=== PATIENT | female | born 1960 | race Caucasian/White ===

== ENCOUNTER → 2020-07-02 14:31 | Outpatient (BNVA) | payer OTHER, SELFPAY | PROVIDERS: PCP Internal Medicine; Visit Provider Internal Medicine Gastroenterology | DX: K21.9 Gastro-esophageal reflux disease without esophagitis (principal); K74.60 Unspecified cirrhosis of liver; K75.81 Nonalcoholic steatohepatitis (NASH); I85.00 Esophageal varices without bleeding; D50.9 Iron deficiency anemia, unspecified; K76.6 Portal hypertension; I85.10 Secondary esophageal varices without bleeding | CPT/HCPCS: 99213; Q3014 ==

== ENCOUNTER 2020-07-22 14:09 | Outpatient (REF) | payer OTHER, SELFPAY ==
[2020-07-22 16:44] LABS: Hematocrit 32.5 % (37-47); Hemoglobin 10.9 g/dl (12.0-16.0); Mean Corpuscular HGB Conc 33.5 g/dl (31.0-35.0); Mean Corpuscular Hemoglobin 32.1 pg (27.0-33.0); Mean Corpuscular Volume 95.6 fL (80-98); Mean Platelet Volume 10.7 fL (9.4-12.3); Red Cell Distribution Width 14.2 % (11.0-16.0); White Blood Count 5.2 X10*3/uL (4.8-10.8)
[2020-07-22 16:48] LABS: INTERNATIONAL NORM RATIO 1.1 (0.9-1.1); Prothrombin Time 12.9 SEC (10.8-13.0)
[2020-07-22 17:04] LABS: Platelet Count 98 X10*3/uL (160-400)
[2020-07-22 18:07] LABS: Glucose Random 383 mg/dL (60-115)
[2020-07-22 18:08] LABS: Alanine Aminotransferase 12 U/L (0-31); Albumin Level 3.2 g/dL (3.5-5.0); Alkaline Phosphatase 109 U/L (39-117); Anion Gap 11 (12-20); Aspartate Amino Transferase 26 U/L (5-31); Bilirubin Total 2.1 mg/dL (0.0-1.0); Blood Urea Nitrogen 12 mg/dL (9-16); Calcium 9.3 mg/dL (8.4-10.2); Carbon Dioxide 30 mmol/L (22-29); Chloride 97 mmol/L (96-108); Estimated Glomerular Filt Rate 48; Potassium 4.4 mmol/l (3.3-5.1); Sodium 134 mmol/L (135-145); Total Protein 6.6 g/dL (6.5-8.0)
== END 2020-07-22 14:10 | disposition home or self-care (01) ==
LOC: HO.HMGCLDS 14:09
PROVIDERS: PCP Internal Medicine; Visit Provider Internal Medicine Gastroenterology
DX: K75.81 Nonalcoholic steatohepatitis (NASH) (principal); K74.60 Unspecified cirrhosis of liver
CPT/HCPCS: 36415; 80053; 85027; 85610

== ENCOUNTER → 2020-08-19 09:17 | Outpatient (BNVA) | payer OTHER, SELFPAY | PROVIDERS: PCP Internal Medicine; Visit Provider Internal Medicine Cardiovascular Disease | DX: R00.2 Palpitations (principal); I49.1 Atrial premature depolarization; I85.00 Esophageal varices without bleeding; Z86.79 Personal history of other diseases of the circulatory system | CPT/HCPCS: 93005; 99212 ==

== ENCOUNTER 2020-08-31 07:03 | Outpatient (REF) | payer OTHER, SELFPAY ==
[2020-08-31 11:37] LABS: Alanine Aminotransferase 11 U/L (0-31); Anion Gap 12 (12-20); Aspartate Amino Transferase 21 U/L (5-31); Blood Urea Nitrogen 16 mg/dL (9-16); Calcium 9.6 mg/dL (8.4-10.2); Carbon Dioxide 32 mmol/L (22-29); Chloride 99 mmol/L (96-108); Cholesterol 139 mg/dL; Estimated Glomerular Filt Rate 56; Glucose Fasting 143 mg/dL (60-99); HDL Cholesterol 52 mg/dL; LDL Cholesterol Calculated 75 mg/dl; Potassium 4.3 mmol/l (3.3-5.1); Sodium 139 mmol/L (135-145); Triglycerides 63 mg/dL
[2020-08-31 11:57] LABS: Estimated Average Glucose 186 mg/dL; Hemoglobin A1c % 8.1 %
[2020-08-31 12:01] LABS: TSH reflex Free T4 0.28 mIU/mL (0.32-4.0); Vitamin D 25-OH Total 31.5 ng/mL (>30)
[2020-08-31 12:45] LABS: Free T4 (Free Thyroxine) 1.28 ng/dL (0.71-1.85)
== END 2020-08-31 07:04 | disposition home or self-care (01) ==
LOC: HO.HMGCLDS 07:03
PROVIDERS: PCP Internal Medicine; Referring Provider Physician Assistant; Visit Provider Physician Assistant
DX: E78.00 Pure hypercholesterolemia, unspecified (principal); E55.9 Vitamin D deficiency, unspecified; E11.42 Type 2 diabetes mellitus with diabetic polyneuropathy; E03.9 Hypothyroidism, unspecified
CPT/HCPCS: 80048; 80061; 82306; 83036; 84439; 84443; 84450; 84460

== ENCOUNTER → 2020-10-06 13:03 | Outpatient (REF) | payer OTHER, SELFPAY ==
--- NOTE | 2020-10-06 13:06 | HM_ITS ---
IDENTIFICATION DATA: The patient is a 60-year-old female. INDICATION FOR TEST: Palpitation with prior history of atrial fibrillation. TECHNIQUE: The patient was hooked up to cardiac event monitor from October 06, 2020 to November 05, 2020 for a total period of 30 days. She was continuously monitored during this time. FINDINGS: Baseline rhythm was normal sinus rhythm. There were no episodes of atrial fibrillation noted. There are rare isolated PVCs and atrial couplets noted. The patient reported 2 symptoms of fluttering, which correlated with PACs. CONCLUSION: 1. Event monitor baseline normal sinus rhythm with no atrial fibrillation. 2. Rare isolated PACs with symptoms of fluttering correlating with PACs. Esequiel Bach MD NRS/MODL / [id number]
== END ==
LOC: HO.CARD 13:03
PROVIDERS: Visit Provider Internal Medicine Cardiovascular Disease
DX: R00.2 Palpitations (principal); I48.0 Paroxysmal atrial fibrillation; I49.1 Atrial premature depolarization
CPT/HCPCS: 93270

== ENCOUNTER → 2020-10-29 13:06 | Outpatient (BNVA) | payer OTHER, SELFPAY | PROVIDERS: PCP Internal Medicine; Visit Provider Internal Medicine Gastroenterology | DX: K74.60 Unspecified cirrhosis of liver (principal); R18.8 Other ascites; K21.9 Gastro-esophageal reflux disease without esophagitis; Z86.010 Personal history of colon polyps | CPT/HCPCS: Q3014 ==

== ENCOUNTER → 2020-10-30 08:36 | Outpatient (REF) | payer OTHER, SELFPAY ==
--- NOTE | 2020-10-30 08:41 | CA_ITS ---
Transthoracic Echocardiogram Patient (Last, First, Middle): Elysia Valle M Gender: Female Date of : 1960 Age: 60 Procedure Date: 10/30/2020 Procedure Type: Transthoracic Echocardiogram Location: OP Height: 170.18 cm Weight: 93.9 kg BSA: 2.05 m2 Heart Rate: bpm BP: 122 / 68 mmHg Refractory Grinder Operator: NEEL Referring MD: Esequiel Bach MD Symptoms: R00.2 - Palpitations Study Quality: Fair ECG Rhythm: Sinus Conclusions: - The left ventricular systolic function is normal. The visually estimated ejection fraction is between 65-70%. - Evidence suggests grade II (moderate) diastolic dysfunction. - There is mild calcification of the aortic valve. - There is moderate mitral annular calcification. Findings Left Ventricle Normal left ventricular cavity size. There is moderately increased left ventricular wall thickness. The left ventricular systolic function is normal. The visually estimated ejection fraction is between 65-70%. There is no evidence of regional wall motion abnormalities. E/E prime ratio is >15, consistent with elevated filling pressures. Evidence suggests grade II (moderate) diastolic dysfunction. Right Ventricle Normal right ventricular cavity size and systolic function. Atria The left atrium is normal in size. The right atrium is normal in size. Aortic Valve There is a normal trileaflet aortic valve. There is mild calcification of the aortic valve. There is no aortic valve stenosis. There is no aortic valve regurgitation. Mitral Valve There is moderate mitral annular calcification. There is trace mitral valve regurgitation. There is no mitral valve stenosis. Pulmonic Valve The pulmonic valve was not well visualized. There is trace pulmonic valve regurgitation. Tricuspid Valve Normal tricuspid valve structure. There is trace tricuspid valve regurgitation. The pulmonary artery systolic pressure is normal. Great Vessels The aortic annulus, sinuses of valsalva, and asc aorta are normal in size. Small plaque is seen in the ascending aorta. Venous The inferior vena cava is normal in size and collapses greater than 50% with inspiration. Pericardium/Pleural There is no evidence of pericardial effusion. Prior Study Comparison No significant change compared to prior study dated: 04/06/2020. Measurements 2D Linear Measurements IVSd: 1.42 0.6-0.9/0.6-1.0 cm LVIDd: 4.69 3.9-5.3/4.2-5.9 cm LVIDd Index: 2.29 2.4-3.2/2.2-3.1 cm/m2 LVIDs: 2.82 2.0-3.6 cm LVPWd: 1.17 0.7-1.1 cm Ao Root: 2.90 2.1-3.5 cm LA Diam: 3.70 2.7-3.8/3.0-4.0 cm LAIDs Index: 1.80 1.5-2.3 cm/m2 LV Mass: 293.97 67-162/88-224 g LV Mass Index: 143.40 43-95/49-115 g/m2 LVOT Diam: 2.10 3.0+(-)1.3 cm 2D Systolic Function EF 4C: 77.70 >55% Mitral Valve MV Pk E: 1.22 MV PK A: 0.73 MV Decel Time: 189.00 E/A: 1.70 E'Lateral: 8.16 E'Medial: 5.87 E/E' Med: 20.80 E/E' Lat: 15.00 PHT: 55.00 MVA PHT: 4.00 Decel Fleming: 6.44 Aortic Valve AoV Pk Antonio: 1.14 AoV Pk Grad: 5.00 LVOT LVOT Pk Antonio: 1.11 LVOT Mn Antonio: 0.77 LVOT VTI: 0.28 LVOT Pk Grad: 5.00 LVOT Mn Grad: 3.00 LVOT Diam: 2.10 LVOT Area: 3.46 Diastolic Function MV Pk E: 1.22 MV Pk A: 0.73 E/A: 1.70 E'Medial: 5.87 E/E' Med: 20.80 E' Laterial: 8.16 E/E' Lat: 15.00 Tricuspid Valve RA Press: 3.00 Great Vessels Aorta Ao Root-2D: 2.90 2.0-3.7 cm Ao Asc: 3.00 2.1-3.4 cm Updated in Other Vendor System with Status of Final Everette Davila MD electronically signed on 11/01/2020 2:00:37 PM with status of Final
== END ==
LOC: HO.CARD 08:36
PROVIDERS: Visit Provider Internal Medicine Cardiovascular Disease
DX: I48.0 Paroxysmal atrial fibrillation (principal); I49.1 Atrial premature depolarization; R00.2 Palpitations
CPT/HCPCS: 93306

== ENCOUNTER → 2020-11-10 13:32 | Outpatient (BNVA) | payer OTHER, SELFPAY | PROVIDERS: PCP Internal Medicine; Visit Provider Internal Medicine Cardiovascular Disease | DX: I48.0 Paroxysmal atrial fibrillation (principal) | CPT/HCPCS: 99212 ==

== ENCOUNTER 2020-11-27 14:17 | Outpatient (REF) | payer OTHER, SELFPAY ==
[2020-11-27 17:21] LABS: TSH reflex Free T4 0.21 uIU/mL (0.32-4.0)
[2020-11-27 18:01] LABS: Free T4 (Free Thyroxine) 1.26 ng/dL (0.71-1.85)
== END 2020-11-27 14:18 | disposition home or self-care (01) ==
LOC: HO.HMGCLDS 14:17
PROVIDERS: PCP Internal Medicine; Visit Provider Physician Assistant
DX: E03.9 Hypothyroidism, unspecified (principal)
CPT/HCPCS: 36415; 84439; 84443

== ENCOUNTER 2020-12-24 07:26 | Emergency (ER) | payer OTHER, SELFPAY ==
--- NOTE | 2020-12-24 | ECG_ITS ---
Test Reason : CHEST PALPITATIONS Blood Pressure : / mmHG Vent. Rate : 071 BPM Atrial Rate : 071 BPM P-R Int : 176 ms QRS Dur : 108 ms QT Int : 424 ms P-R-T Axes : 068 -48 015 degrees QTc Int : 460 ms Normal sinus rhythm Left anterior fascicular block Abnormal ECG When compared with ECG of 13-FEB-2020 16:32, Premature ventricular complexes are no longer Present AK interval has decreased Referred By: Generic ED Physician Electronically Signed By:Mahesh Vang
--- NOTE | ~2020-12-24 | XR_ITS ---
EXAMINATION: XR CHEST CLINICAL INFORMATION: Palpitations COMPARISON: 02/13/2020 TECHNIQUE: 2 views of the chest were obtained. FINDINGS: The lungs are well expanded. There is no focal consolidation, edema, or effusion. No pneumothorax. The cardiomediastinal silhouette is within normal limits. No acute osseous abnormality. XR/XR chest 2V IMPRESSION: Clear lungs.
[2020-12-24 08:45] VITALS: BP 150/70; PULSE 73; RESP 18; TEMP 36.7; O2SAT 100; BMI 31.8
--- NOTE | 2020-12-24 09:23 | ED_ITS ---
HPI - Arrhythmia/Palpitations General Chief Complaint: Arrhythmia/Palpitations Stated Complaint: palpitations Time Seen by Provider: 12/24/20 08:48 Source: patient and family Mode of arrival: ambulatory Limitations: no limitations History of Present Illness HPI narrative: 60-year-old female with a past medical history of paroxysmal atrial fibrillation without any clear recurrence of prolonged episodes not on any anticoagulation due to hx of anemia and prior esophageal varices secondary to cirrhosis of the liver, portal hypertension, hypertension, hyperlipidemia, premature atrial contractions, type 2 diabetes, thyroid disease, asthma, GERD and obesity presenting to the ED with complaints of palpitations over the past few months worse last night after she received her second Pzifer COVID vaccine with 1 episode of vomiting. Denies any dizziness, headaches, lightheadedness, fevers, neck pain/stiffness, changes in vision, jaw pain, hemoptysis, hematemesis, sore throat, nasal congestion, cough, chest pain, shortness of breath, dyspnea on exertion, orthopnea, lower extremity edema, abdominal pain, back pain, dysuria, hematuria, melena, bloody stools or any other symptoms complaints or concerns at this time. - Dr. Bach the import customs clearing agent has been following the patient for similar symptoms over the past few months and it appears that she had a recent echo on 10/30/2020 which showed normal LV systolic function with grade 2 diastolic dysfunction and no significant abnormality of valvular Doppler. MD complaint: palpitations Onset (ago): day(s) (Since last night worse this morning) Duration: constant Severity: similar to previous episodes Context: occurred during rest Arrhythmia history: atrial fibrillation (History of proxysmal atrial fibril lation) Associated symptoms: nausea and vomiting Related Data Home Medications Medication Instructions Recorded Confirmed ascorbic acid (vitamin C) 500 mg 500 mg PO BID 07/02/20 11/10/20 chewable tablet blood sugar diagnostic #10 ea 07/02/20 11/10/20 cholecalciferol (vitamin D3) 50 100 mcg PO DAILY 07/02/20 11/10/20 mcg (2,000 unit) capsule clotrimazole-betamethasone 1 applic TOPICAL BID 07/02/20 11/10/20 %-0.05 % topical cream cyclosporine 0.05 % eye drops in a 1 drp OPHTHALMIC (EYE) BID 07/02/20 11/10/20 dropperette fluticasone propionate 250 INHALATION 07/02/20 11/10/20 mcg/actuation blister powder for inhalation insulin glargine 100 unit/mL (3 unit SUBCUT 07/02/20 11/10/20 mL) subcutaneous pen lactulose 10 gram/15 mL oral 15 ml PO BID 07/02/20 11/10/20 solution lancets 33 gauge #100 ea 07/02/20 11/10/20 lorazepam 0.5 mg tablet 0.5 mg PO DAILY PRN 07/02/20 11/10/20 omeprazole 40 mg capsule,delayed mg PO 07/02/20 11/10/20 release ondansetron HCl 4 mg tablet 4 mg PO Q6H PRN 07/02/20 11/10/20 rifaximin 550 mg tablet 550 mg PO BID 07/02/20 11/10/20 levothyroxine 137 mcg tablet 137 mcg PO DAILY 08/19/20 11/10/20 lovastatin 40 mg tablet 40 mg PO DAILY 08/19/20 11/10/20 dulaglutide 1.5 mg/0.5 mL 3 mg SUBCUT QWEEK ml 11/10/20 11/10/20 subcutaneous pen injector metformin 500 mg tablet 500 mg PO DAILY tab 11/10/20 11/10/20 Previous Rx's Medication Instructions Recorded magnesium oxide 400 mg (241.3 mg 800 mg PO TID #540 tab 09/03/20 magnesium) tablet spironolactone 100 mg tablet 100 mg PO DAILY #90 tab 09/23/20 ferrous sulfate 325 mg (65 mg 325 mg PO BID #180 tab 11/10/20 iron) tablet furosemide 20 mg tablet 20 mg PO QAM 90 Days #90 tab 11/29/20 nadolol 20 mg tablet 20 mg PO DAILY #90 tab 12/10/20 Allergies Allergy/AdvReac Type Severity Reaction Status Date / Time metoclopramide [From REGLAN] Allergy Unknown SWELLING Verified 12/24/20 08:47 penicillin V Allergy Unknown Unknown Verified 11/10/20 13:48 tramadol [TRAMADOL] Allergy Unknown SWELLING Verified 12/24/20 08:47 From AUGMENTIN Allergy Mild COUGHING, Uncoded 06/11/20 15:44 LOW BP\ Review of Systems Review of Systems: Constitutional : No Weight loss, No Fever, No Chills, No Night Sweats, No Fatigue, No Malaise ENT/Mouth : No Hearing loss, No Ear Pain, No Nasal Congestion, No Sinus Pain, No Hoarseness, No sore throat, No Rhinorrhea, No Swallowing Difficulty Eyes: No Eye Pain, No Swelling, No Redness, No Foreign Body, No Discharge, No Vision Changes Cardiovascular : + heart palpitations, No Chest pain, No SOB, no Dyspnea on Exertion, No Orthopnea, No Edema, No extremity swelling Respiratory : No Cough, No Sputum, No Wheezing, No Dyspnea Gastrointestinal : + Nausea, + Vomiting, No Diarrhea, No abdominal Pain, No Hematochezia, No Melena Genitourinary : No irregular bleeding, No Dysuria, No Urinary Frequency, No Hematuria, No Urinary Incontinence, No Urgency, No Flank Pain, No Urinary Flow Changes, No Hesitancy Musculoskeletal : No joint pain, No Myalgias, No Joint Swelling Skin : No Skin Lesions, No rash Neuro : No Weakness, No Numbness, No Paresthesias, No Loss of Consciousness, No Dizziness, No Headache Psych : No Anxiety/Panic, No Depression, No SI/HI/AH/VH Heme/Lymph: No Bruising, No Bleeding,No Lymphadenopathy Endocrine : No Polyuria, No Polydipsia, No Temperature Intolerance Yes all other systems are reviewed and are negative [facility] Past Medical History Attestation statement: The following information was validated with the patient. Medical History Asthma Cirrhosis of liver with ascites Esophageal varices without bleeding GERD (gastroesophageal reflux disease) History of colonic polyps Hyperlipidemia Hypertension Iron deficiency anemia Obesity (BMI 35.0-39.9 without comorbidity) PAC (premature atrial contraction) Paroxysmal atrial fibrillation Portal hypertension Shingles Thyroid disease Type 2 diabetes mellitus Surgical History History of partial hysterectomy (~1998) Hx of colonoscopy Hx of endoscopy Status post surgical removal of pilonidal cyst (~1979) Family History Family History Father No problems noted. Mother No problems noted. Paternal Grandmother Colon cancer Social History Social History Household Members: Spouse Alcohol intake: never Smoking Status: Unknown if ever smoked Use of substances other than those prescribed or required for medical reasons: No Advance Directives: Yes Advance Directives Information Provided: Yes Advance Directives on File: No Current occupational status: disabled Physical Exam Vital Signs: Vital Signs: Last Vital Signs Temp 98.0 F 12/24/20 08:45 Pulse 74 12/24/20 10:41 Resp 18 12/24/20 10:41 BP 134/86 12/24/20 10:41 Pulse Ox 99 12/24/20 10:41 Body Mass Index 31.8 Vital signs have been reviewed as normal and appeared to be correct. Blood pressure hypertensive at 150/70. Heart rate normal. Respiration rate normal. Temperature normal. Oxygen saturation normal. Appearance: Alert. Oriented X3. No acute distress. Head: Normal external exam. Normocephalic. Atraumatic. Able to rotate head bilaterally. Eyes: PERRLA. EOMI. No nystagmus noted. Conjunctiva and sclera normal. Eyelids normal. Corneal reflex normal. ENT: EAC normal. TM's Normal. Hearing normal. Pharynx normal. Uvula midline. tongue midline. Moist mucous membranes. Neck: Normal inspection. Neck supple. FROM. No adenopathy. Trachea midline. Thyroid Normal. No meningeal signs. No neck mass noted. CVS: Normal heart rate and rhythm. Heart sound normal. No murmurs noted. Pulses normal throughout. Respiratory: No respiratory distress. Painless inspiration. Breath sounds normal. No wheezes/rales/rhonchi noted. Chest nontender. No accessory muscle usage noted or decreased air movement noted. Abdomen: Soft and nontender. Bowel sounds normal in all 4 quadrants. No distention noted. No organomegaly noted. No visible injury noted. Back: Full range of motion noted. Skin: Skin warm and dry. Normal skin color. Normal skin turgor. No rashes/lesions/lacerations noted. Extremities: + mild b/l lower extremity edema. No calf tenderness noted. Extremities exhibit normal range of motion. Extremities nontender. Able to shrug shoulders bilaterally and keep up against resistance. Neuro: Oriented X 3. No motor deficit. No sensory deficit. Reflexes normal. Moving all extremities. No focal motor deficits. Cranial nerves II-XI intact bilaterally. Facial strength normal. Normal cognition. Speech normal. Gait normal. Strength 5/5 throughout. No pronator drift. No tremor noted. No fasciculations noted. No rigidity noted. Muscle tone normal throughout. No asterixis noted. Course Course Course Narrative: 9 am - 60-year-old female presenting to the ED with complaints of palpitations over the past few months worse last night after she received her second Pzifer COVID vaccine with 1 episode of vomiting. - on exam patient is alert and oriented x3. Not in any acute distress. Mildly hypertensive at 150/70 otherwise all other vitals are within normal limits. No focal neuro deficits are noted. Lungs clear to auscultation. CV RRR. Abdomen is soft and nontender. Bilateral lower extremity with mild +1 pitting edema although no calf tenderness and distal pulses are normal. - Concern for atrial fibrillation vs ACS vs Viral Syndrome vs Anxiety - Plan: Labs, CXR, EKG then re-evaluate. Reevaluation(s) Reevaluation #1: BUN 22. Random glucose 272. Calcium 10.3. Total bilirubin 2.7. Direct bilirubin 1.1. Alkaline phosphate 149. Otherwise all other labs are within normal limits. EKG was normal sinus rhythm no acute ischemic changes and not in AFib. Chest x-ray within normal limits no acute processes noted. Will obtain a COVID/RSV/flu swab as patient requested although denies any URI symptoms. Will DC home at this time with instructions to return if any new or worsening symptoms to follow up with import customs clearing agent Dr. Bach. Patient understands agrees with this plan. Time: 11:06 MDM - Arrhythmia/Palpitations Differential Diagnosis Differential diagnosis: Likely palpitations, anxiety, sinus tachycardia, artial fibrillation, artial flutter, ventricular premature beats, supraventricular tachycardia, ventricular tachycardia and WPW Medical Records Attestation: I reviewed the patient's medical records. Lab Data Attestation: I reviewed the patient's lab results. Result diagrams: 12/24/20 09:21 12/24/20 09:21 Labs: Lab Results 12/24/20 12/24/20 12/24/20 Range/Units 09:21 09:21 09:21 WBC 6.2 (4.8-10.8) X10*3/uL RBC 3.79 L (4.20-5.50) X10*6/uL Hgb 12.4 (12.0-16.0) g/dl Hct 35.3 L (37-47) % MCV 93.1 (80-98) fL MCH 32.7 (27.0-33.0) pg MCHC 35.1 H (31.0-35.0) g/dl RDW 14.5 (11.0-16.0) % Plt Count 107 L (160-400) X10*3/uL MPV 10.1 (9.4-12.3) fL Immature Gran % (Auto) 0.3 (0.0-0.4) % Neut % (Auto) 64.3 (45-73) % Lymph % (Auto) 20.5 (20-40) % Cascade % (Auto) 9.8 (2-11) % Eos % (Auto) 4.3 H (0-4) % Baso % (Auto) 0.8 (0-2) % Lymph # (Auto) 1.3 (1.2-4.9) X10*3/uL Cascade # (Auto) 0.6 (0.1-1.2) X10*3/uL Eos # (Auto) 0.3 (0.0-0.4) X10*3/uL Baso # (Auto) 0.1 (0.0-0.2) X10*3/uL Abs Immat Gran (auto) 0.02 (0.00-0.03) X10*3/uL Absolute Neuts (auto) 4.0 (2.0-8.3) X10*3/uL Absolute Nucleated RBC 0.000 (0.0-0.012) X10*3/uL Nucleated RBC % (auto) 0.0 (0.0-0.2) /100WBC PT 13.0 (10.8-13.0) SEC INR 1.1 (0.9-1.1) Sodium 136 (135-145) mmol/L Potassium 4.8 (3.3-5.1) mmol/L Chloride 98 (96-108) mmol/L Carbon Dioxide 29 (22-29) mmol/L Anion Gap 14 (12-20) BUN 22 H (9-16) mg/dL Creatinine 1.31 (0.5-1.4) mg/dL Estim Creat Clear Calc 52.5 Estimated GFR 41 Random Glucose 272 H (60-115) mg/dL Calcium 10.3 H D (8.4-10.2) mg/dL Magnesium 2.0 (1.6-2.6) mg/dL Total Bilirubin 2.7 H (0.0-1.0) mg/dL Direct Bilirubin 1.1 H (0.0-0.5) mg/dL AST 26 (5-31) U/L ALT 19 (0-31) U/L Alkaline Phosphatase 149 H D (39-117) U/L Troponin I High Sens (<3.5-17.0) ng/L B-Natriuretic Peptide (<100) pg/mL Total Protein 7.5 (6.5-8.0) g/dL Albumin 3.7 (3.5-5.0) g/dL TSH 1.84 (0.32-4.0) uIU/mL 12/24/20 Range/Units 09:21 WBC (4.8-10.8) X10*3/uL RBC (4.20-5.50) X10*6/uL Hgb (12.0-16.0) g/dl Hct (37-47) % MCV (80-98) fL MCH (27.0-33.0) pg MCHC (31.0-35.0) g/dl RDW (11.0-16.0) % Plt Count (160-400) X10*3/uL MPV (9.4-12.3) fL Immature Gran % (Auto) (0.0-0.4) % Neut % (Auto) (45-73) % Lymph % (Auto) (20-40) % Cascade % (Auto) (2-11) % Eos % (Auto) (0-4) % Baso % (Auto) (0-2) % Lymph # (Auto) (1.2-4.9) X10*3/uL Cascade # (Auto) (0.1-1.2) X10*3/uL Eos # (Auto) (0.0-0.4) X10*3/uL Baso # (Auto) (0.0-0.2) X10*3/uL Abs Immat Gran (auto) (0.00-0.03) X10*3/uL Absolute Neuts (auto) (2.0-8.3) X10*3/uL Absolute Nucleated RBC (0.0-0.012) X10*3/uL Nucleated RBC % (auto) (0.0-0.2) /100WBC PT (10.8-13.0) SEC INR (0.9-1.1) Sodium (135-145) mmol/L Potassium (3.3-5.1) mmol/L Chloride (96-108) mmol/L Carbon Dioxide (22-29) mmol/L Anion Gap (12-20) BUN (9-16) mg/dL Creatinine (0.5-1.4) mg/dL Estim Creat Clear Calc Estimated GFR Random Glucose (60-115) mg/dL Calcium (8.4-10.2) mg/dL Magnesium (1.6-2.6) mg/dL Total Bilirubin (0.0-1.0) mg/dL Direct Bilirubin (0.0-0.5) mg/dL AST (5-31) U/L ALT (0-31) U/L Alkaline Phosphatase (39-117) U/L Troponin I High Sens < 3.5 (<3.5-17.0) ng/L B-Natriuretic Peptide 89 (<100) pg/mL Total Protein (6.5-8.0) g/dL Albumin (3.5-5.0) g/dL TSH (0.32-4.0) uIU/mL Imaging Data Chest x-ray: Attestation: I personally reviewed and interpreted this imaging study as follows: Radiologist's impression: FINDINGS: The lungs are well expanded. There is no focal consolidation, edema, or effusion. No pneumothorax. The cardiomediastinal silhouette is within normal limits. No acute osseous abnormality. XR/XR chest 2V IMPRESSION: Clear lungs. ECG Data Attestation: I personally reviewed and interpreted this ECG as follows: ECG interpretation date: 12/24/20 ECG interpretation time: 07:38 Interpretation: With ventricular rate of 71 with left anterior fascicular block with a normal QRS/QT/QTC interval. No acute ischemic changes are noted. Similar when compared to prior EKG 02/13/2020 Discharge Plan Discharge Clinical Impression: Intermittent palpitations Patient Disposition: Home, Self-Care Instructions: Heart Palpitations (ED) Additional Instructions: Continue all your previously prescribed medications as previously prescribed. Return if any new or worsening symptoms and follow up with Dr. Bach and your primary care provider. Prescriptions: No Action magnesium oxide 400 mg (241.3 mg magnesium) tablet 800 mg PO TID Qty: 540 RF: 0 spironolactone 100 mg tablet 100 mg PO DAILY Qty: 90 RF: 1 ferrous sulfate 325 mg (65 mg iron) tablet 325 mg PO BID Qty: 180 RF: 1 furosemide 20 mg tablet 20 mg PO QAM 90 Days Qty: 90 RF: 1 nadolol 20 mg tablet 20 mg PO DAILY Qty: 90 RF: 1 Lantus Solostar U-100 Insulin 100 unit/mL (3 mL) insulin pen subcut RF: 0 omeprazole 40 mg capsule,delayed release(DR/EC) PO RF: 0 lactulose 10 gram/15 mL solution 15 ml PO BID RF: 0 (DME) lancets 33 gauge misc See Rx Instructions ea Not Applicable TID Qty: 100 RF: 0 (DME) OneTouch Verio test strips Strip See Rx Instructions ea Not Applicable TID Qty: 10 RF: 0 ondansetron HCl 4 mg tablet 4 mg PO Q6H PRN (Reason: nausea/vomiting) RF: 0 Restasis 0.05 % dropperette 1 drp ophthalmic (eye) BID RF: 0 ascorbic acid (vitamin C) 500 mg tablet,chewable 500 mg PO BID RF: 0 clotrimazole-betamethasone 1-0.05 % cream topical BID RF: 0 Flovent Diskus 250 mcg/actuation blister with device inhalation RF: 0 cholecalciferol (vitamin D3) 50 mcg (2,000 unit) capsule 100 mcg PO DAILY RF: 0 lorazepam 0.5 mg tablet 0.5 mg PO DAILY PRNRF: 0 rifaximin 550 mg tablet 550 mg PO BID RF: 0 dulaglutide 1.5 mg/0.5 mL pen injector 3 mg subcut QWEEK RF: 0 lovastatin 40 mg tablet 40 mg PO DAILY RF: 0 levothyroxine 137 mcg tablet 137 mcg PO DAILY RF: 0 metformin 500 mg tablet 500 mg PO DAILY RF: 0 Referrals: Tony Toure MD [Primary Care Provider] - 2 days Esequiel Bach MD [Physician] - 2 days Print Language: [place] Citizen
[2020-12-24 09:36] LABS: MANUAL DIFF FLAG NO
[2020-12-24 09:37] LABS: Basophils Absolute Auto 0.1 X10*3/uL (0.0-0.2); Basophils Percent Auto 0.8 % (0-2); Eosinophils Absolute Auto 0.3 X10*3/uL (0.0-0.4); Eosinophils Percent Auto 4.3 % (0-4); Hematocrit 35.3 % (37-47); Hemoglobin 12.4 g/dl (12.0-16.0); Imm Gran Abs Auto 0.02 X10*3/uL (0.00-0.03); Imm Gran Pct Auto 0.3 % (0.0-0.4); Lymphocytes Absolute Auto 1.3 X10*3/uL (1.2-4.9); Lymphocytes Percent Auto 20.5 % (20-40); Mean Corpuscular HGB Conc 35.1 g/dl (31.0-35.0); Mean Corpuscular Hemoglobin 32.7 pg (27.0-33.0); Mean Corpuscular Volume 93.1 fL (80-98); Mean Platelet Volume 10.1 fL (9.4-12.3); Monocytes Absolute Auto 0.6 X10*3/uL (0.1-1.2); Monocytes Percent Auto 9.8 % (2-11); Neutrophils Percent Auto 64.3 % (45-73); Platelet Count 107 X10*3/uL (160-400); Red Blood Count 3.79 X10*6/uL (4.20-5.50); Red Cell Distribution Width 14.5 % (11.0-16.0); White Blood Count 6.2 X10*3/uL (4.8-10.8)
[2020-12-24 09:57] LABS: INTERNATIONAL NORM RATIO 1.1 (0.9-1.1)
[2020-12-24 10:28] LABS: Alanine Aminotransferase 19 U/L (0-31); Albumin Level 3.7 g/dL (3.5-5.0); Alkaline Phosphatase 149 U/L (39-117); Anion Gap 14 (12-20); Aspartate Amino Transferase 26 U/L (5-31); Bilirubin Direct 1.1 mg/dL (0.0-0.5); Bilirubin Total 2.7 mg/dL (0.0-1.0); Blood Urea Nitrogen 22 mg/dL (9-16); Calcium 10.3 mg/dL (8.4-10.2); Carbon Dioxide 29 mmol/L (22-29); Chloride 98 mmol/L (96-108); Creatinine Clr Calc Pharmacy 52.5; Estimated Glomerular Filt Rate 41; Glucose Random 272 mg/dL (60-115); Potassium 4.8 mmol/L (3.3-5.1); Sodium 136 mmol/L (135-145); Total Protein 7.5 g/dL (6.5-8.0)
[2020-12-24 10:31] LABS: Troponin-I High Sensitivity < 3.5 ng/L (<3.5-17.0)
[2020-12-24 10:41] VITALS: BP 134/86; PULSE 74; RESP 18; O2SAT 99
[2020-12-24 10:43] LABS: Thyroid Stimulating Hormone 1.84 uIU/mL (0.32-4.0)
[2020-12-24 11:00] LABS: B Type Natriuretic Peptide 89 pg/mL (<100)
[2020-12-24 12:33] LABS: Influenza A PCR NEGATIVE (Negative); Influenza B PCR NEGATIVE (Negative); Resp Syncy Virus RNA Qual PCR NEGATIVE (Negative); SARS COV2 PCR INHOUSE NEGATIVE (Negative)
== END 2020-12-24 11:17 | disposition home or self-care (01) ==
PROVIDERS: Physician Assistant Medical; Emergency Provider Emergency Medicine Emergency Medical Services; PCP Internal Medicine
DX: R00.2 Palpitations (principal); Z20.822 Contact with and (suspected) exposure to COVID-19; E11.9 Type 2 diabetes mellitus without complications; I10 Essential (primary) hypertension; I48.0 Paroxysmal atrial fibrillation; K74.60 Unspecified cirrhosis of liver; K76.6 Portal hypertension; E78.5 Hyperlipidemia, unspecified; D64.9 Anemia, unspecified; J45.909 Unspecified asthma, uncomplicated; K21.9 Gastro-esophageal reflux disease without esophagitis; Z79.4 Long term (current) use of insulin; Z79.02 Long term (current) use of antithrombotics/antiplatelets; Z79.899 Other long term (current) drug therapy
CPT/HCPCS: 0241U; 36415; 71046; 80048; 80076; 83735; 83880; 84443; 84484; 85025; 85610; 93005; 99283; 99284

== ENCOUNTER → 2021-01-01 10:36 | Outpatient (BNVA) | payer OTHER, SELFPAY | PROVIDERS: PCP Internal Medicine; Visit Provider Nurse Practitioner Family | DX: I48.0 Paroxysmal atrial fibrillation (principal); I10 Essential (primary) hypertension; E78.5 Hyperlipidemia, unspecified; K74.60 Unspecified cirrhosis of liver; R18.8 Other ascites; I85.00 Esophageal varices without bleeding | CPT/HCPCS: 93005; 99212 ==

== ENCOUNTER 2021-01-04 11:58 | Outpatient (REF) | payer OTHER, SELFPAY ==
--- NOTE | ~2021-01-04 | XR_ITS ---
EXAMINATION: XR BILATERAL HIPS WITH AP PELVIS CLINICAL INFORMATION: Bilateral hips with AP pelvis COMPARISON: Bilateral hips and AP pelvis 06/25/2020 TECHNIQUE: AP view of the pelvis and 2 views of each hip were obtained. FINDINGS: AP PELVIS: There is loss of bilateral hip joints and SI joints. No bony erosive changes, fracture or dislocation seen. RIGHT HIP: There is no visible acute fracture, dislocation or subluxation seen. No bony erosive changes. The soft tissues are normal. There is vascular calcification of femoral artery. LEFT HIP: There is no visible acute fracture, dislocation or subluxation. No bony erosive changes. The soft tissues are normal. XR/XR hip BI w PEL1V IMPRESSION: Unremarkable AP pelvis and bilateral hip exam. No major change from previous exam 06/25/2018
== END 2021-01-04 11:59 | disposition home or self-care (01) ==
LOC: HO.HMGCX 11:58
PROVIDERS: PCP Internal Medicine; Visit Provider Internal Medicine
DX: M25.551 Pain in right hip (principal)
CPT/HCPCS: 73521

== ENCOUNTER 2021-04-20 14:45 | Outpatient (REF) | payer MEDICARE, OTHER, SELFPAY ==
[2021-04-20 16:55] LABS: Estimated Average Glucose 197 mg/dL; Hemoglobin A1c % 8.5 %
[2021-04-20 17:10] LABS: Creatinine Urine 79.12 mg/dL; Microalbumin Urine < 5.0 mg/L
[2021-04-20 17:22] LABS: Alanine Aminotransferase 24 U/L (0-31); Anion Gap 12 (12-20); Aspartate Amino Transferase 27 U/L (5-31); Blood Urea Nitrogen 11 mg/dL (9-16); Calcium 9.2 mg/dL (8.4-10.2); Carbon Dioxide 27 mmol/L (22-29); Chloride 99 mmol/L (96-108); Estimated Glomerular Filt Rate 42; Potassium 4.4 mmol/L (3.3-5.1); Sodium 134 mmol/L (135-145)
[2021-04-20 17:25] LABS: TSH reflex Free T4 4.63 uIU/mL (0.32-4.0); Vitamin D 25-OH Total 34.5 ng/mL (>30)
[2021-04-20 18:30] LABS: Glucose Random 392 mg/dL (60-115)
[2021-04-20 18:35] LABS: Free T4 (Free Thyroxine) 1.14 ng/dL (0.71-1.85)
[2021-04-21 20:21] LABS: LDL Cholesterol Direct 82 mg/dL (<100)
== END 2021-04-20 14:46 | disposition home or self-care (01) ==
LOC: HO.HMGCLDS 14:45
PROVIDERS: PCP Internal Medicine; Visit Provider Physician Assistant
DX: E55.9 Vitamin D deficiency, unspecified (principal); E03.9 Hypothyroidism, unspecified; E11.42 Type 2 diabetes mellitus with diabetic polyneuropathy
CPT/HCPCS: 36415; 80048; 82043; 82306; 83036; 83721; 84439; 84443; 84450; 84460

== ENCOUNTER 2021-05-19 14:32 | Outpatient (REF) | payer MEDICARE, MEDICAID, OTHER, SELFPAY ==
[2021-05-19 16:39] LABS: MANUAL DIFF FLAG NO
[2021-05-19 16:47] LABS: Basophils Absolute Auto 0.1 X10*3/uL (0.0-0.2); Basophils Percent Auto 0.9 % (0-2); Eosinophils Absolute Auto 0.2 X10*3/uL (0.0-0.4); Eosinophils Percent Auto 4.2 % (0-4); Hematocrit 32.4 % (37-47); Hemoglobin 11.4 g/dl (12.0-16.0); Imm Gran Abs Auto 0.02 X10*3/uL (0.00-0.03); Imm Gran Pct Auto 0.4 % (0.0-0.4); Lymphocytes Absolute Auto 1.2 X10*3/uL (1.2-4.9); Lymphocytes Percent Auto 22.3 % (20-40); Mean Corpuscular HGB Conc 35.2 g/dl (31.0-35.0); Mean Corpuscular Hemoglobin 32.9 pg (27.0-33.0); Mean Corpuscular Volume 93.6 fL (80-98); Mean Platelet Volume 10.8 fL (9.4-12.3); Monocytes Absolute Auto 0.5 X10*3/uL (0.1-1.2); Neutrophils Absolute Auto 3.3 X10*3/uL (2.0-8.3); Neutrophils Percent Auto 62.2 % (45-73); Red Blood Count 3.46 X10*6/uL (4.20-5.50); Red Cell Distribution Width 14.3 % (11.0-16.0); White Blood Count 5.3 X10*3/uL (4.8-10.8)
[2021-05-19 16:48] LABS: Platelet Count 91 X10*3/uL (160-400)
[2021-05-19 16:50] LABS: Prothrombin Time 11.6 SEC (9.9-13.0)
[2021-05-19 17:18] LABS: Alanine Aminotransferase 42 U/L (0-31); Albumin Level 3.2 g/dL (3.5-5.0); Alkaline Phosphatase 185 U/L (39-117); Anion Gap 13 (12-20); Aspartate Amino Transferase 42 U/L (5-31); Bilirubin Total 3.7 mg/dL (0.0-1.0); Blood Urea Nitrogen 13 mg/dL (9-16); Calcium 9.9 mg/dL (8.4-10.2); Carbon Dioxide 27 mmol/L (22-29); Chloride 99 mmol/L (96-108); Estimated Glomerular Filt Rate 38; Glucose Random 263 mg/dL (60-115); Potassium 5.1 mmol/L (3.3-5.1); Sodium 134 mmol/L (135-145); Total Protein 6.5 g/dL (6.5-8.0)
== END 2021-05-19 14:33 | disposition home or self-care (01) ==
LOC: HO.HMGCLDS 14:32
PROVIDERS: PCP Internal Medicine; Visit Provider Internal Medicine Gastroenterology
DX: K75.81 Nonalcoholic steatohepatitis (NASH) (principal)
CPT/HCPCS: 36415; 80053; 85025; 85610

== ENCOUNTER → 2021-05-20 14:19 | Outpatient (BNVA) | payer MEDICARE, SELFPAY | PROVIDERS: PCP Internal Medicine; Visit Provider Internal Medicine Gastroenterology | DX: E11.9 Type 2 diabetes mellitus without complications (principal); K74.60 Unspecified cirrhosis of liver; K21.9 Gastro-esophageal reflux disease without esophagitis; I10 Essential (primary) hypertension; I85.00 Esophageal varices without bleeding; D50.9 Iron deficiency anemia, unspecified; E78.5 Hyperlipidemia, unspecified; Z88.5 Allergy status to narcotic agent; Z88.8 Allergy status to other drugs, medicaments and biological substances; Z86.010 Personal history of colon polyps | CPT/HCPCS: 99212 ==

== ENCOUNTER 2021-06-01 15:18 | Outpatient (REF) | payer MEDICARE, MEDICAID, OTHER, SELFPAY ==
[2021-06-01 17:53] LABS: Hematocrit 33.4 % (37-47); Hemoglobin 11.7 g/dl (12.0-16.0); Mean Corpuscular Hemoglobin 32.3 pg (27.0-33.0); Mean Corpuscular Volume 92.3 fL (80-98); Mean Platelet Volume 11.1 fL (9.4-12.3); Platelet Count 108 X10*3/uL (160-400); Red Blood Count 3.62 X10*6/uL (4.20-5.50); Red Cell Distribution Width 14.1 % (11.0-16.0); White Blood Count 5.7 X10*3/uL (4.8-10.8)
[2021-06-01 18:01] LABS: Anion Gap 11 (12-20); Carbon Dioxide 27 mmol/L (22-29); Chloride 99 mmol/L (96-108); Estimated Glomerular Filt Rate 37; Potassium 4.8 mmol/L (3.3-5.1); Sodium 132 mmol/L (135-145)
== END 2021-06-01 15:19 | disposition home or self-care (01) ==
LOC: HO.HMGCLDS 15:18
PROVIDERS: PCP Internal Medicine; Visit Provider Internal Medicine Gastroenterology
DX: K74.60 Unspecified cirrhosis of liver (principal); R18.8 Other ascites
CPT/HCPCS: 36415; 80051; 82247; 82565; 85027

== ENCOUNTER 2021-06-02 15:38 | Outpatient (REF) | payer MEDICARE, MEDICAID, OTHER, SELFPAY ==
[2021-06-02 16:35] LABS: Ammonia 54 umol/L (13-55)
== END 2021-06-02 15:39 | disposition home or self-care (01) ==
LOC: HO.LAB 15:38
PROVIDERS: PCP Internal Medicine; Visit Provider Physician Assistant
DX: K72.90 Hepatic failure, unspecified without coma (principal)
CPT/HCPCS: 36415; 82140

== ENCOUNTER 2021-06-17 14:19 | Outpatient (REF) | payer MEDICARE, MEDICAID, OTHER, SELFPAY ==
[2021-06-17 17:21] LABS: Anion Gap 12 (12-20); Blood Urea Nitrogen 12 mg/dL (9-16); Calcium 9.4 mg/dL (8.4-10.2); Carbon Dioxide 24 mmol/L (22-29); Chloride 103 mmol/L (96-108); Estimated Glomerular Filt Rate 43; Potassium 4.2 mmol/L (3.3-5.1); Sodium 135 mmol/L (135-145)
[2021-06-17 17:48] LABS: Glucose Random 407 mg/dL (60-115)
== END 2021-06-17 14:20 | disposition home or self-care (01) ==
LOC: HO.HMGCLDS 14:19
PROVIDERS: PCP Internal Medicine; Visit Provider Internal Medicine Gastroenterology
DX: K74.60 Unspecified cirrhosis of liver (principal); R18.8 Other ascites
CPT/HCPCS: 36415; 80048

== ENCOUNTER 2021-06-24 14:44 | Outpatient (REF) | payer MEDICARE, MEDICAID, OTHER, SELFPAY ==
[2021-06-24 16:12] LABS: MANUAL DIFF FLAG NO
[2021-06-24 16:23] LABS: Basophils Percent Auto 1.1 % (0-2); Eosinophils Absolute Auto 0.2 X10*3/uL (0.0-0.4); Eosinophils Percent Auto 4.3 % (0-4); Hematocrit 31.5 % (37-47); Hemoglobin 10.8 g/dl (12.0-16.0); Imm Gran Abs Auto 0.01 X10*3/uL (0.00-0.03); Imm Gran Pct Auto 0.3 % (0.0-0.4); Lymphocytes Absolute Auto 0.9 X10*3/uL (1.2-4.9); Lymphocytes Percent Auto 22.9 % (20-40); Mean Corpuscular HGB Conc 34.3 g/dl (31.0-35.0); Mean Corpuscular Hemoglobin 32.1 pg (27.0-33.0); Mean Corpuscular Volume 93.8 fL (80-98); Monocytes Absolute Auto 0.4 X10*3/uL (0.1-1.2); Monocytes Percent Auto 11.7 % (2-11); Neutrophils Absolute Auto 2.2 X10*3/uL (2.0-8.3); Neutrophils Percent Auto 59.7 % (45-73); Red Blood Count 3.36 X10*6/uL (4.20-5.50); Red Cell Distribution Width 14.4 % (11.0-16.0); White Blood Count 3.8 X10*3/uL (4.8-10.8)
[2021-06-24 16:37] LABS: INTERNATIONAL NORM RATIO 1.1 (0.9-1.1); Prothrombin Time 12.7 SEC (9.9-13.0)
[2021-06-24 16:49] LABS: Platelet Count 84 X10*3/uL (160-400)
[2021-06-24 17:00] LABS: Alanine Aminotransferase 17 U/L (0-31); Albumin Level 3.1 g/dL (3.5-5.0); Alkaline Phosphatase 104 U/L (39-117); Anion Gap 12 (12-20); Aspartate Amino Transferase 28 U/L (5-31); Bilirubin Total 2.9 mg/dL (0.0-1.0); Blood Urea Nitrogen 12 mg/dL (9-16); Calcium 9.6 mg/dL (8.4-10.2); Carbon Dioxide 24 mmol/L (22-29); Chloride 102 mmol/L (96-108); Estimated Glomerular Filt Rate 43; Glucose Random 400 mg/dL (60-115); Potassium 4.2 mmol/L (3.3-5.1); Sodium 134 mmol/L (135-145); Total Protein 6.3 g/dL (6.5-8.0)
== END 2021-06-24 14:45 | disposition home or self-care (01) ==
LOC: HO.HMGCLDS 14:44
PROVIDERS: PCP Internal Medicine; Visit Provider Internal Medicine Gastroenterology
DX: K75.81 Nonalcoholic steatohepatitis (NASH) (principal); K74.60 Unspecified cirrhosis of liver; I48.0 Paroxysmal atrial fibrillation; Z79.899 Other long term (current) drug therapy
CPT/HCPCS: 36415; 80053; 85025; 85610; 99212

== ENCOUNTER 2021-06-30 13:36 | Outpatient (REF) | payer MEDICARE, OTHER, SELFPAY ==
[2021-06-30 16:54] LABS: Anion Gap 13 (12-20); Blood Urea Nitrogen 12 mg/dL (9-16); Calcium 10.1 mg/dL (8.4-10.2); Carbon Dioxide 25 mmol/L (22-29); Chloride 100 mmol/L (96-108); Estimated Glomerular Filt Rate 48; Glucose Random 225 mg/dL (60-115); Potassium 4.6 mmol/L (3.3-5.1); Sodium 133 mmol/L (135-145)
== END 2021-06-30 13:37 | disposition home or self-care (01) ==
LOC: HO.HMGCLDS 13:36
PROVIDERS: PCP Internal Medicine; Visit Provider Internal Medicine Gastroenterology
DX: K74.60 Unspecified cirrhosis of liver (principal); R18.8 Other ascites
CPT/HCPCS: 36415; 80048

== ENCOUNTER 2021-07-22 11:22 | Outpatient (REF) | payer MEDICARE, OTHER, SELFPAY ==
--- NOTE | ~2021-07-22 | US_ITS ---
EXAMINATION: US ABDOMEN COMPLETE CLINICAL INFORMATION: Left upper quadrant abdominal swelling/mass/lump. COMPARISON: February 26, 2019 TECHNIQUE: Real-time imaging of the abdominal viscera. FINDINGS: PANCREAS: Normal. No abnormal mass or peripancreatic inflammatory change identified. ABDOMINAL AORTA: The proximal, mid, and distal segments are normal in caliber. INFERIOR VENA CAVA: Visualized portions are normal. LIVER: No blood flow is detected within the main portal vein. Within the right lobe of the liver there is a 2.2 x 2.3 x 2.3 cm nonvascular mass which is circumscribed. The liver has a very heterogeneous echotexture consistent with hepatocellular disease/cirrhosis. The liver is normal in size. There is no intrahepatic biliary duct dilatation seen. GALLBLADDER: Cholelithiasis is present. Gallbladder wall is thickened to 6 mm in diameter without fluid in the wall and without pericholecystic fluid. COMMON BILE DUCT: Normal in caliber measuring 0.5 cm in diameter. RIGHT KIDNEY: Normal. No hydronephrosis. No renal calculi or focal parenchymal lesions. The kidney measures 10.8 cm in maximum dimension. LEFT KIDNEY: Normal. No hydronephrosis. No renal calculi or focal parenchymal lesions. The kidney measures 10.6 cm in maximum dimension. SPLEEN: Splenomegaly is present. The spleen measures 18 cm in maximum dimension. Echotexture is extremely heterogeneous. Varices are present. Within the left lower quadrant region there is a large vascular structure with venous flow which may represent a large varix. US/US abdomen complete IMPRESSION: Findings consistent with hepatic cirrhosis with varices, splenomegaly, and what appears to be maintained portal vein obstruction. Right lobe hepatic lesion measuring approximately 2.3 cm in largest dimension. Hepatocellular carcinoma not excluded. CT or MRI with contrast of the abdomen and pelvis with be of help in further evaluation of above findings. Cholelithiasis with gallbladder wall thickening without other secondary signs of acute cholecystitis.
== END 2021-07-22 11:23 | disposition home or self-care (01) ==
LOC: HO.HMGCX 11:22
PROVIDERS: PCP Internal Medicine; Visit Provider Physician Assistant
DX: R19.02 Left upper quadrant abdominal swelling, mass and lump (principal)
CPT/HCPCS: 76700

== ENCOUNTER 2021-07-27 11:20 | Inpatient (IN) | payer MEDICARE, OTHER, SELFPAY ==
--- NOTE | ~2021-07-27 | US_ITS ---
EXAMINATION: ULTRASOUND ABDOMEN WITH DOPPLER CLINICAL INFORMATION: Rule out portal vein thrombosis COMPARISON: CT scan earlier today along with CT scan abdomen pelvis 06/06/2016 TECHNIQUE: Ultrasound of the liver was performed with specific attention to the portal venous system and hepatic veins. FINDINGS: The portal vein was not adequately visualized and no flow was seen in any structure which could be identified as the portal vein. Findings are highly suspicious for portal vein thrombosis as seen on the CT scan earlier today. The splenic vein is patent. The hepatic veins are seen but are very small diameter and appear to have pulsatile Doppler flow within, but this could be artifactual. Decrease flow could also be secondary to decreased venous return secondary to portal thrombosis. US/US duplex arterial venous comp IMPRESSION: The portal vein appears thrombosed as no flow could be identified in a normal portal venous system. Other findings as described above.
--- NOTE | ~2021-07-27 | CT_ITS ---
EXAMINATION: CT ABDOMEN AND PELVIS WITH CONTRAST CLINICAL INFORMATION: Left upper quadrant pain COMPARISON: Previous CT colonoscopy exam August 2018 and abdominal ultrasound most recent 07/22/2021 TECHNIQUE: Multidetector volumetric images were obtained from the superior aspect of the liver through the pubic symphysis following administration 85 mL of Omnipaque 350 intravenous contrast. Sagittal and coronal reformatted images were obtained on the technologist's workstation. Oral contrast: Yes This CT examination was performed using dose optimization techniques as appropriate, variously including the following: *Automated exposure control *Adjustment of mA and/or kV according to patient size (this includes techniques or standardized protocols for targeted exams where dose is matched to indication/reason for exam; i.e. extremities or head) *Use of iterative reconstruction technique DLP: 836 mGy-cm FINDINGS: LUNG BASES: There is atelectasis at the lung bases, left greater than right. LIVER, GALLBLADDER, AND BILIARY TREE: The liver is normal in size. The contour of the liver is slightly irregular or scalloped questionable for mild cirrhotic changes. No focal liver lesion is seen. The gallbladder is contracted. There is high attenuation in the gallbladder suggestive of gallstones. There is no focal liver lesion or biliary duct dilatation. PANCREAS: Unremarkable. SPLEEN: The spleen is enlarged and measures 16 cm in length. There are large peripheral low-attenuation areas in the spleen probably representing splenic infarcts. Differential would include splenic laceration and there is history of trauma. ADRENAL GLANDS: There is a 2 cm low-attenuation right adrenal nodule. This is stable from previous CT colonoscopy exam August 2018 and probably represents a benign adenoma. The left adrenal gland is normal. KIDNEYS AND URETERS: The kidneys are normal in size, shape, and attenuation. No hydronephrosis, hydroureter, or calculi seen. No perinephric stranding. BLADDER: Unremarkable. GASTROINTESTINAL TRACT: There is mild diverticulosis of the colon. Small and large bowel is otherwise unremarkable. The appendix is unremarkable. The stomach is unremarkable. ABDOMINAL WALL: No significant hernia is appreciated. LYMPH NODES: Normal. VASCULAR: There are large left-sided varices. Largest varix is a left ovarian vein varix that measures up to 5.5 cm in AP and transverse dimension. The main portal vein appears small. There may be thrombus in the main portal vein. The splenic vein is patent. No ascites is seen. PELVIC VISCERA: Unremarkable. OSSEOUS STRUCTURES: The bones appear osteopenic. There are degenerative changes of the spine. There is a probable Schmorl's node of the superior endplate of the L4 vertebral body. CT/CT abdomen pelvis w con IMPRESSION: Enlarged spleen spleen. Large low-attenuation peripheral areas in the spleen probably representing splenic infarcts. Differential would include changes related to trauma. Extensive varices including very dilated left ovarian vein measuring up to 4 x 2.5 cm. Mild cirrhotic changes of the liver. Small and main portal vein with question of a thrombus. Contracted gallbladder and gallstones. Stable right adrenal lesion probably representing a benign adenoma.
[2021-07-27 11:22] VITALS: BP 133/58; PULSE 71; RESP 16; TEMP 36.5; O2SAT 100; BMI 32.7
--- NOTE | 2021-07-27 11:51 | ED.ABDPAIN ---
HPI - Abdominal Pain General Chief Complaint: Abdominal Pain Stated Complaint: lt side abd pain Time Seen by Provider: 07/27/21 11:45 Source: patient and old records reviewed Mode of arrival: ambulatory Limitations: no limitations History of Present Illness HPI narrative: 61 yo female pmhx cirrhosis, CHIN (on wait list for liver transplant at [facility]), GERD, iron deficiency anemia, paroxysmal atrial fibrillation not on anticoagulation, hypertension, hyperlipidemia , portal vein thrombosis (in 2019), DM presents to the emergency department with 2 weeks of progressively worsening left upper quadrant pain. She states that the pain is intermittent, and severe in nature, nonradiating, and it feels like stabbing feeling. She has no other concerns at this time. Denies chest pain, shortness of breath, fevers, chills, nausea, vomiting, diarrhea, weakness, changes in urination. She is followed by Dr. Malik. ARRIAZA elicited complaint: abdominal pain Pertinent past history: none Onset (ago): week(s) (2) Pain Consistency: intermittent Location: LUQ Severity: severe Quality: stabbing Radiation: none Migration to: no migration Exacerbating factors: nothing Relieving factors: nothing Associated symptoms: denies other symptoms Treatments prior to arrival: other (Tyleonol ) Related Data Home Medications Medication Instructions Recorded Confirmed blood sugar diagnostic #10 ea 07/02/20 06/24/21 cholecalciferol (vitamin D3) 50 100 mcg PO DAILY 07/02/20 07/27/21 mcg (2,000 unit) capsule clotrimazole-betamethasone 1 1 applic TOPICAL BID PRN 07/02/20 07/27/21 %-0.05 % topical cream cyclosporine 0.05 % eye drops in a 1 drp OPHTHALMIC (EYE) BEDTIME 07/02/20 07/27/21 dropperette fluticasone propionate 250 1 inh INHALATION BEDTIME 07/02/20 07/27/21 mcg/actuation blister powder for inhalation insulin glargine 100 unit/mL (3 50 unit SUBCUT BEDTIME 07/02/20 07/27/21 mL) subcutaneous pen lactulose 10 gram/15 mL oral 15 ml PO BID 07/02/20 07/27/21 solution lancets 33 gauge #100 ea 07/02/20 06/24/21 lorazepam 0.5 mg tablet 0.5 mg PO BEDTIME 07/02/20 07/27/21 ondansetron HCl 4 mg tablet 4 mg PO Q6H PRN 07/02/20 07/27/21 levothyroxine 137 mcg tablet 137 mcg PO MOTUWETHFR 08/19/20 07/27/21 lovastatin 40 mg tablet 40 mg PO BEDTIME 08/19/20 07/27/21 metformin 500 mg tablet 500 mg PO DAILY tab 11/10/20 07/27/21 metoprolol succinate 25 mg 25 mg PO DAILY 01/01/21 07/27/21 tablet,extended release 24 hr dulaglutide 1.5 mg/0.5 mL 3 mg SUBCUT FR ml 06/24/21 07/27/21 subcutaneous pen injector omeprazole 40 mg capsule,delayed 40 mg PO DAILY cap 06/24/21 07/27/21 release rifaximin 550 mg tablet 550 mg PO BID 06/24/21 07/27/21 acetaminophen 325 mg tablet 650 mg PO Q4H PRN 07/27/21 07/27/21 insulin lispro 100 unit/mL See Protocol SUBCUT TIDAC 07/27/21 07/27/21 subcutaneous pen (Humalog KwikPen (U-100) Insulin) Previous Rx's Medication Instructions Recorded magnesium oxide 400 mg (241.3 mg 800 mg PO TID #540 tab 01/25/21 magnesium) tablet ferrous sulfate 325 mg (65 mg 325 mg PO BID #180 tab 04/30/21 iron) tablet furosemide 20 mg tablet 20 mg PO DAILY 30 Days #30 tab 07/02/21 spironolactone 100 mg tablet 100 mg PO DAILY 30 Days #30 tab 07/02/21 Allergies Allergy/AdvReac Type Severity Reaction Status Date / Time metoclopramide [From REGLAN] Allergy Unknown SWELLING Verified 05/20/21 14:28 penicillin V Allergy Unknown Unknown Verified 05/20/21 14:28 tramadol [TRAMADOL] Allergy Unknown SWELLING Verified 05/20/21 14:28 From AUGMENTIN Allergy Mild COUGHING, Uncoded 06/11/20 15:44 LOW BP\ Review of Systems Review of Systems Constitutional : No Weight loss, No Fever, No Chills, No Fatigue, No Malaise ENT/Mouth : No sore throat, No Rhinorrhea Eyes: No Eye Pain, No Swelling, No Redness Cardiovascular : No Chest Pain, No SOB, No Dyspnea on Exertion, No Orthopnea, No Edema, No Palpitations Respiratory : No Cough, No Sputum, No Wheezing Gastrointestinal : No Nausea, No Vomiting, No Diarrhea, No Constipation, + abdominal Pain, No Hematochezia, No Melena Genitourinary : No Dysuria, No Urinary Frequency, No Hematuria, Musculoskeletal : No joint pain, No Myalgias, No Joint Swelling Skin : No Skin Lesions, No rash Neuro : No Weakness, No Numbness, No Dizziness, No Headache All other systems reviewed and are negative Physical Exam Vital Signs: Vital Signs: Last Vital Signs Temp 98.0 F 07/27/21 15:11 Pulse 72 07/27/21 15:11 Resp 18 07/27/21 15:11 BP 120/56 L 07/27/21 15:11 Pulse Ox 100 07/27/21 15:11 Body Mass Index 32.7 Appearance: Alert. Oriented X3. No acute distress. Eyes: Pupils equal, round and reactive to light. ENT: Pharynx normal. Neck: Normal inspection. Neck supple. CVS: Normal heart rate and rhythm. Pulses normal. Respiratory: No respiratory distress. Breath sounds normal. Abdomen: Soft and + tenderness to LUQ, no overlying skin changes. Skin: Skin warm and dry. Normal skin color. Normal skin turgor. Extremities: No lower extremity edema. No calf ttp Neuro: Oriented X 3. No motor deficit. No sensory deficit. Course Course Course Narrative: 2 weeks of pain, h/h stable plan to call [facility] liver transplant team - had variceal bleeds, anemia her prior eliquis was held for long time Dr. Macdonald [phone] call out to coordinator 253pm Prisca the coordinator is aware - will try to reach the property technician but he is in procedures all day she would recommend admit and they will try to transfer if a bed becomes available but this is unlikely Dr. Macdonald aware - will see /Monday this week, anti-coagulation not mentioned deferred to our team Message sent to Dr. Jack 3pm message sent to Dr. Meuller at 315pm [facility] transfer center closed for transfers. Dr. Mueller recommends starting patient on anticoagulation. pending call back from GI - Dr. Jack will see in ED will start on low dose heparin no bolus given risk factors until termite control representative AC decided Reevaluation(s) Reevaluation #1: Labs show no leukocytosis, baseline anemia is noted, PT 13.1, INR 1.2. No significant electrolyte abnormality, total bilirubin 2.2 appears to be patient's baseline, Direct bili 0.9, COVID negative, CT abdomen and pelvis shows extensive varices, cirrhotic changes of the liver and splenic infarct, spoke to the patient again who continues to deny trauma to the area. Time: 15:39 MDM - Abdominal Pain MDM Narrative Medical decision making narrative: 1157 61 yo female pmhx cirrhosis, CHIN (on wait list for liver transplant), GERD, iron deficiency anemia, PAF not on anticoagulation, HTN, HLD , portal vein thrombosis (in 2019), DM presents to the ED with complaints of 10/10 intermittent, stabbing, LUQ abdominal pain free of radiation X2 weeks progressively worsening. Denies any other symptoms. Denies heavy liftng. Denies trauma to the area Upon physical examination there is tenderness to palpation of the left upper quadrant. No overlying skin changes. Lungs are clear to auscultation. S1 and S2 appreciated free of murmurs. No focal neuro deficits. 5/5 strength upper and lower extremities. No CVA tenderness. Plan at this time is to obtain basic labs, COVID, VBG, ammonia, liver, lipase, Mag, PTT, PT INR, UA. CT of abdomen and pelvis with contrast to rule out splenic infarct, splenic thrombosis. Lab Data Result diagrams: 07/27/21 12:14 07/27/21 12:14 Labs: Lab Results 07/27/21 07/27/21 07/27/21 Range/Units 12:13 12:14 12:14 WBC 7.2 (4.8-10.8) X10*3/uL RBC 3.60 L (4.20-5.50) X10*6/uL Hgb 11.3 L (12.0-16.0) g/dl Hct 33.5 L (37.0-47.0) % MCV 93.1 (80.0-98.0) fL MCH 31.4 (27.0-33.0) pg MCHC 33.7 (31.0-35.0) g/dl RDW 13.8 (11.0-16.0) % Plt Count 181 (160-400) X10*3/uL MPV 9.4 (9.4-12.3) fL Immature Gran % (Auto) 0.6 H (0.0-0.4) % Neut % (Auto) 70.5 (45-73) % Lymph % (Auto) 15.2 L (20-40) % [place] % (Auto) 10.0 (2-11) % Eos % (Auto) 2.9 (0-4) % Baso % (Auto) 0.8 (0-2) % Lymph # (Auto) 1.1 L (1.2-4.9) X10*3/uL [place] # (Auto) 0.7 (0.1-1.2) X10*3/uL Eos # (Auto) 0.2 (0.0-0.4) X10*3/uL Baso # (Auto) 0.1 (0.0-0.2) X10*3/uL Abs Immat Gran (auto) 0.04 H (0.00-0.03) X10*3/uL Absolute Neuts (auto) 5.10 (2.0-8.3) x10*3/uL Absolute Nucleated RBC 0.000 (0.0-0.012) X10*3/uL Nucleated RBC % (auto) 0.0 (0.0-0.2) /100WBC PT 13.1 H (9.9-13.0) SEC INR 1.2 H (0.9-1.1) APTT 34.1 (24.1-38.0) SEC VBG pH (7.32-7.43) VBG pCO2 mmHg VBG pO2 mmHg VBG HCO3 (22-26) mmol/L VBG O2 Saturation % VBG Base Excess mmol/L Sodium (135-145) mmol/L Potassium (3.3-5.1) mmol/L Chloride (96-108) mmol/L Carbon Dioxide (22-29) mmol/L Anion Gap (12-20) BUN (9-16) mg/dL Creatinine (0.5-1.4) mg/dL Estim Creat Clear Calc Estimated GFR Random Glucose (60-115) mg/dL Calcium (8.4-10.2) mg/dL Magnesium (1.6-2.6) mg/dL Total Bilirubin (0.0-1.0) mg/dL Direct Bilirubin (0.0-0.5) mg/dL AST (5-31) U/L ALT (0-31) U/L Alkaline Phosphatase (39-117) U/L Ammonia (13-55) umol/L Total Protein (6.5-8.0) g/dL Albumin (3.5-5.0) g/dL Lipase (8-78) U/L Urine Color Urine Appearance Urine pH (5.0-8.0) Ur Specific [place] (1.005-1.025) Urine Protein (NEG-TRACE) MG/DL Urine Glucose (UA) (NEG) MG/DL Urine Ketones (NEG) MG/DL Urine Blood (NEG) Urine Nitrite (NEG) Ur Leukocyte Esterase (NEG) COVID-19 (MARKIE) Negative (Negative) COVID-19 Clin Com See Note Blood Type Antibody Screen 07/27/21 07/27/21 07/27/21 Range/Units 12:14 12:14 12:19 WBC (4.8-10.8) X10*3/uL RBC (4.20-5.50) X10*6/uL Hgb (12.0-16.0) g/dl Hct (37.0-47.0) % MCV (80.0-98.0) fL MCH (27.0-33.0) pg MCHC (31.0-35.0) g/dl RDW (11.0-16.0) % Plt Count (160-400) X10*3/uL MPV (9.4-12.3) fL Immature Gran % (Auto) (0.0-0.4) % Neut % (Auto) (45-73) % Lymph % (Auto) (20-40) % [place] % (Auto) (2-11) % Eos % (Auto) (0-4) % Baso % (Auto) (0-2) % Lymph # (Auto) (1.2-4.9) X10*3/uL [place] # (Auto) (0.1-1.2) X10*3/uL Eos # (Auto) (0.0-0.4) X10*3/uL Baso # (Auto) (0.0-0.2) X10*3/uL Abs Immat Gran (auto) (0.00-0.03) X10*3/uL Absolute Neuts (auto) (2.0-8.3) x10*3/uL Absolute Nucleated RBC (0.0-0.012) X10*3/uL Nucleated RBC % (auto) (0.0-0.2) /100WBC PT (9.9-13.0) SEC INR (0.9-1.1) APTT (24.1-38.0) SEC VBG pH 7.37 (7.32-7.43) VBG pCO2 47 mmHg VBG pO2 37 mmHg VBG HCO3 27 H (22-26) mmol/L VBG O2 Saturation 49.0 % VBG Base Excess 2.0 mmol/L Sodium 132 L (135-145) mmol/L Potassium 4.5 (3.3-5.1) mmol/L Chloride 98 (96-108) mmol/L Carbon Dioxide 27 (22-29) mmol/L Anion Gap 12 (12-20) BUN 12 (9-16) mg/dL Creatinine 1.18 (0.5-1.4) mg/dL Estim Creat Clear Calc 58.4 Estimated GFR 46 Random Glucose 252 H (60-115) mg/dL Calcium 9.1 D (8.4-10.2) mg/dL Magnesium 1.6 (1.6-2.6) mg/dL Total Bilirubin 2.2 H (0.0-1.0) mg/dL Direct Bilirubin 0.9 H (0.0-0.5) mg/dL AST 25 (5-31) U/L ALT 12 (0-31) U/L Alkaline Phosphatase 94 (39-117) U/L Ammonia 30 (13-55) umol/L Total Protein 6.6 (6.5-8.0) g/dL Albumin 3.1 L (3.5-5.0) g/dL Lipase 26 (8-78) U/L Urine Color Urine Appearance Urine pH (5.0-8.0) Ur Specific [place] (1.005-1.025) Urine Protein (NEG-TRACE) MG/DL Urine Glucose (UA) (NEG) MG/DL Urine Ketones (NEG) MG/DL Urine Blood (NEG) Urine Nitrite (NEG) Ur Leukocyte Esterase (NEG) COVID-19 (MARKIE) (Negative) COVID-19 Clin [facility] Blood Type Antibody Screen 07/27/21 07/27/21 Range/Units 14:08 15:13 WBC (4.8-10.8) X10*3/uL RBC (4.20-5.50) X10*6/uL Hgb (12.0-16.0) g/dl Hct (37.0-47.0) % MCV (80.0-98.0) fL MCH (27.0-33.0) pg MCHC (31.0-35.0) g/dl RDW (11.0-16.0) % Plt Count (160-400) X10*3/uL MPV (9.4-12.3) fL Immature Gran % (Auto) (0.0-0.4) % Neut % (Auto) (45-73) % Lymph % (Auto) (20-40) % [place] % (Auto) (2-11) % Eos % (Auto) (0-4) % Baso % (Auto) (0-2) % Lymph # (Auto) (1.2-4.9) X10*3/uL [place] # (Auto) (0.1-1.2) X10*3/uL Eos # (Auto) (0.0-0.4) X10*3/uL Baso # (Auto) (0.0-0.2) X10*3/uL Abs Immat Gran (auto) (0.00-0.03) X10*3/uL Absolute Neuts (auto) (2.0-8.3) x10*3/uL Absolute Nucleated RBC (0.0-0.012) X10*3/uL Nucleated RBC % (auto) (0.0-0.2) /100WBC PT (9.9-13.0) SEC INR (0.9-1.1) APTT (24.1-38.0) SEC VBG pH (7.32-7.43) VBG pCO2 mmHg VBG pO2 mmHg VBG HCO3 (22-26) mmol/L VBG O2 Saturation % VBG Base Excess mmol/L Sodium (135-145) mmol/L Potassium (3.3-5.1) mmol/L Chloride (96-108) mmol/L Carbon Dioxide (22-29) mmol/L Anion Gap (12-20) BUN (9-16) mg/dL Creatinine (0.5-1.4) mg/dL Estim Creat Clear Calc Estimated GFR Random Glucose (60-115) mg/dL Calcium (8.4-10.2) mg/dL Magnesium (1.6-2.6) mg/dL Total Bilirubin (0.0-1.0) mg/dL Direct Bilirubin (0.0-0.5) mg/dL AST (5-31) U/L ALT (0-31) U/L Alkaline Phosphatase (39-117) U/L Ammonia (13-55) umol/L Total Protein (6.5-8.0) g/dL Albumin (3.5-5.0) g/dL Lipase (8-78) U/L Urine Color YELLOW Urine Appearance CLEAR Urine pH 6.5 (5.0-8.0) Ur Specific [place] 1.010 (1.005-1.025) Urine Protein NEG (NEG-TRACE) MG/DL Urine Glucose (UA) NEG (NEG) MG/DL Urine Ketones NEG (NEG) MG/DL Urine Blood NEG (NEG) Urine Nitrite NEG (NEG) Ur Leukocyte Esterase NEG (NEG) COVID-19 (MARKIE) (Negative) COVID-19 Clin Com Blood Type A Positive Antibody Screen NEGATIVE ECG Data Attestation: I personally reviewed and interpreted this ECG as follows: ECG interpretation date: 07/27/21 ECG interpretation time: 15:09 Interpretation: Rate: 68 Rhythm: NSR [place]: left Normal P waves. Normal BONITA. Normal QRS complex. ST T wave : nonspecific, no LA NENA qTC: normal prior studies: no acute ischemia The study has been interpreted contemporaneously by me. . Critical Care Time Critical Care Time Critical Care Time: Yes Total Critical Care Time: 60 Attestation: 3 medical consult, call to [facility], admission, review of records I attest to this time spent taking care of the patient Discharge Plan Discharge Clinical Impression: Infarction of spleen Abdominal pain Qualifiers: Abdominal location: left upper quadrant Qualified Code(s): R10.12 - Left upper quadrant pain Patient Disposition: Admitted As Inpatient [facility] Past Medical History Attestation statement: The following information was validated with the patient. Source: old records reviewed and nursing notes reviewed Medical History Asthma Cirrhosis of liver with ascites Esophageal varices without bleeding GERD (gastroesophageal reflux disease) History of colonic polyps Hyperlipidemia Hypertension Iron deficiency anemia Obesity (BMI 35.0-39.9 without comorbidity) PAC (premature atrial contraction) Paroxysmal atrial fibrillation Portal hypertension Shingles Thyroid disease Type 2 diabetes mellitus Surgical History History of partial hysterectomy (~1998) Hx of colonoscopy Hx of endoscopy Status post surgical removal of pilonidal cyst (~1979) Family History Family History Father No problems noted. Mother No problems noted. Paternal Grandmother Colon cancer Social History Social History Household Members: Spouse Alcohol intake: never Smoked in Last 30 Days: No Use of substances other than those prescribed or required for medical reasons: No Advance Directives: No Advance Directives Information Provided: No Patient : No Current occupational status: disabled
[2021-07-27 12:16] VITALS: BP 121/50; PULSE 71; RESP 18; O2SAT 100
[2021-07-27 12:19] LABS: MANUAL DIFF FLAG NO
[2021-07-27 12:22] LABS: Basophils Absolute Auto 0.1 X10*3/uL (0.0-0.2); Basophils Percent Auto 0.8 % (0-2); Eosinophils Absolute Auto 0.2 X10*3/uL (0.0-0.4); Eosinophils Percent Auto 2.9 % (0-4); Hematocrit 33.5 % (37.0-47.0); Hemoglobin 11.3 g/dl (12.0-16.0); Imm Gran Abs Auto 0.04 X10*3/uL (0.00-0.03); Imm Gran Pct Auto 0.6 % (0.0-0.4); Lymphocytes Absolute Auto 1.1 X10*3/uL (1.2-4.9); Lymphocytes Percent Auto 15.2 % (20-40); Mean Corpuscular HGB Conc 33.7 g/dl (31.0-35.0); Mean Corpuscular Hemoglobin 31.4 pg (27.0-33.0); Mean Corpuscular Volume 93.1 fL (80.0-98.0); Mean Platelet Volume 9.4 fL (9.4-12.3); Monocytes Absolute Auto 0.7 X10*3/uL (0.1-1.2); Neutrophils Percent Auto 70.5 % (45-73); Platelet Count 181 X10*3/uL (160-400); Red Cell Distribution Width 13.8 % (11.0-16.0); White Blood Count 7.2 X10*3/uL (4.8-10.8)
[2021-07-27 12:25] LABS: Venous Blood Gas Refer to POC result
[2021-07-27 12:25] LABS: VBG HCO3 27 mmol/L (22-26); VBG pCO2 47 mmHg; VBG pH 7.37 (7.32-7.43); VBG pO2 37 mmHg
[2021-07-27 12:29] LABS: INTERNATIONAL NORM RATIO 1.2 (0.9-1.1); Prothrombin Time 13.1 SEC (9.9-13.0)
[2021-07-27 12:31] LABS: Partial Thromboplastin Time 34.1 SEC (24.1-38.0)
[2021-07-27 12:37] LABS: Ammonia 30 umol/L (13-55)
[2021-07-27 12:40] LABS: COVID-19 Test Negative (Negative); IDNOW Serial# 9DD0AD1C
[2021-07-27 12:46] LABS: Alanine Aminotransferase 12 U/L (0-31); Albumin Level 3.1 g/dL (3.5-5.0); Alkaline Phosphatase 94 U/L (39-117); Anion Gap 12 (12-20); Aspartate Amino Transferase 25 U/L (5-31); Bilirubin Direct 0.9 mg/dL (0.0-0.5); Bilirubin Total 2.2 mg/dL (0.0-1.0); Blood Urea Nitrogen 12 mg/dL (9-16); Calcium 9.1 mg/dL (8.4-10.2); Carbon Dioxide 27 mmol/L (22-29); Chloride 98 mmol/L (96-108); Creatinine Clr Calc Pharmacy 58.4; Estimated Glomerular Filt Rate 46; Glucose Random 252 mg/dL (60-115); Lipase 26 U/L (8-78); Magnesium 1.6 mg/dL (1.6-2.6); Potassium 4.5 mmol/L (3.3-5.1); Sodium 132 mmol/L (135-145); Total Protein 6.6 g/dL (6.5-8.0)
[2021-07-27] MEDS: iohexoL 350 MG/ML 100 ML INFUS..BTL IV (14:09)
--- NOTE | 2021-07-27 14:59 | ECG_ITS ---
Test Reason : BLOOD CLOT Blood Pressure : / mmHG Vent. Rate : 068 BPM Atrial Rate : 068 BPM P-R Int : 180 ms QRS Dur : 102 ms QT Int : 378 ms P-R-T Axes : 067 -47 -03 degrees QTc Int : 401 ms Normal sinus rhythm Left anterior fascicular block Nonspecific T wave abnormality Inferior leads Lateral leads Abnormal ECG When compared with ECG of 24-DEC-2020 07:38, T wave amplitude has decreased in Referred By: Annie Junior Electronically Signed By:JAVIER CARO MD
[2021-07-27 15:11] VITALS: BP 120/56; PULSE 72; RESP 18; TEMP 36.7; O2SAT 100
[2021-07-27 15:27] LABS: Appearance Urine CLEAR; Color Urine YELLOW; Glucose Urine UA NEG (NEG); Leukocyte Esterase Urine NEG (NEG); Nitrite Urine NEG (NEG); PH 6.5 (5.0-8.0); Urine Blood NEG (NEG); Urine Ketones NEG (NEG); Urine Protein NEG (NEG-TRACE)
--- NOTE | 2021-07-27 16:08 | PM.IMHP ---
History of Present Illness Date of Service: 07/27/21 Chief Complaint: abd pain 61F presented wiht 2 weeks of progressing left upper quadrant abdominal pain. Patient has a history of cirrhosis due to nonalcoholic steatohepatitis she is on wait list for liver transplant at [facility] (currently not taking transfers). She also has history of portal vein thrombosis in 2019, and history of paroxysmal atrial fibrillation. She had her Eliquis discontinued due to iron deficiency anemia. Patient states that her abdominal pain has been progressing, is intermittent, occasionally severe, nonradiating, stabbing in nature. In ED CT abdomen showed portal vein thrombosis and splenic infarcts. Patient denies chest pain, shortness of breath, fever, chills Review of Systems Review of Systems: Constitutional: Denies fever, denies Chills Eyes: denies blurry vision ENT: denies sore throat CVS: denies chest pain Respiratory: Denies dyspnea GI: abdominal pain : denies dysuria MSK: denies neck pain Skin: denies rash Neuro: denies specific motor weakness Psych: denies suicidal ideation Endocrine: denies heat/cold intolerance Hematologic: denies easy bleeding Allergy: denies hives [facility] Medical History Asthma Cirrhosis of liver with ascites Esophageal varices without bleeding GERD (gastroesophageal reflux disease) History of colonic polyps Hyperlipidemia Hypertension Iron deficiency anemia Obesity (BMI 35.0-39.9 without comorbidity) PAC (premature atrial contraction) Paroxysmal atrial fibrillation Portal hypertension Shingles Thyroid disease Type 2 diabetes mellitus Family History Father No problems noted. Mother No problems noted. Paternal Grandmother Colon cancer Pertinent family history: . Surgical History History of partial hysterectomy (~1998) Hx of colonoscopy Hx of endoscopy Status post surgical removal of pilonidal cyst (~1979) Social History Household Members: Spouse Alcohol intake: never Smoked in Last 30 Days: No Use of substances other than those prescribed or required for medical reasons: No Advance Directives: No Advance Directives Information Provided: No Patient : No Current occupational status: disabled Meds Allergies Allergy/AdvReac Type Severity Reaction Status Date / Time metoclopramide [From REGLAN] Allergy Unknown SWELLING Verified 05/20/21 14:28 penicillin V Allergy Unknown Unknown Verified 05/20/21 14:28 tramadol [TRAMADOL] Allergy Unknown SWELLING Verified 05/20/21 14:28 From AUGMENTIN Allergy Mild COUGHING, Uncoded 06/11/20 15:44 LOW BP\ Active Medications: Current Medications Heparin Sodium (Porcine) (Heparin Sodium,Porcine 5,000 Unit/Ml Vial) 3,800 unit 40 unit/kg (3800 unit) IVPUSH PROTOCOL BOLUS PRN; Protocol PRN Reason: 40 unit/kg - Heparin Protocol Heparin Sodium (Porcine) (Heparin Sodium,Porcine 5,000 Unit/Ml Vial) 7,600 unit 80 unit/kg (7600 unit) IVPUSH PROTOCOL BOLUS PRN; Protocol PRN Reason: 80 unit/kg - Heparin Protocol Heparin Sodium/Sodium Chloride () 25,000 unit in 250 mls @ 0 mls/hr IVCONT .Q0M KAVON; Protocol Pharmacy Consult (Consult Rx Perform Med Rec) 1 each MISCELLANE ONCE PRN PRN Reason: Consult order Home Medications Medication Instructions Recorded Confirmed Last Taken Type ascorbic acid (vitamin C) 500 mg 500 mg PO BID 07/02/20 06/24/21 Unknown History chewable tablet blood sugar diagnostic #10 ea 07/02/20 06/24/21 Unknown History cholecalciferol (vitamin D3) 50 100 mcg PO DAILY 07/02/20 06/24/21 Unknown History mcg (2,000 unit) capsule clotrimazole-betamethasone 1 applic TOPICAL BID 07/02/20 06/24/21 Unknown History %-0.05 % topical cream cyclosporine 0.05 % eye drops in a 1 drp OPHTHALMIC (EYE) BID 07/02/20 06/24/21 Unknown History dropperette fluticasone propionate 250 INHALATION 07/02/20 06/24/21 Unknown History mcg/actuation blister powder for inhalation insulin glargine 100 unit/mL (3 unit SUBCUT 07/02/20 06/24/21 Unknown History mL) subcutaneous pen lactulose 10 gram/15 mL oral 15 ml PO BID 07/02/20 06/24/21 Unknown History solution lancets 33 gauge #100 ea 07/02/20 06/24/21 Unknown History lorazepam 0.5 mg tablet 0.5 mg PO DAILY PRN 07/02/20 06/24/21 Unknown History ondansetron HCl 4 mg tablet 4 mg PO Q6H PRN 07/02/20 06/24/21 Unknown History levothyroxine 137 mcg tablet 137 mcg PO DAILY 08/19/20 06/24/21 Unknown History lovastatin 40 mg tablet 40 mg PO DAILY 08/19/20 06/24/21 Unknown History metformin 500 mg tablet 500 mg PO DAILY tab 11/10/20 06/24/21 Unknown History metoprolol succinate 25 mg 25 mg PO DAILY 01/01/21 06/24/21 Unknown History tablet,extended release 24 hr dulaglutide 1.5 mg/0.5 mL 3 mg SUBCUT QWEEK ml 06/24/21 06/24/21 Unknown History subcutaneous pen injector omeprazole 40 mg capsule,delayed 40 mg PO DAILY cap 06/24/21 06/24/21 Unknown History release rifaximin 550 mg tablet 550 mg PO BID 06/24/21 06/24/21 Unknown History insulin lispro 100 unit/mL SUBCUT 07/27/21 Unknown History subcutaneous pen (Humalog KwikPen (U-100) Insulin) oxycodone-acetaminophen 5 mg-325 1 tab PO QID PRN 07/27/21 Unknown History mg tablet Physical Exam Vital Signs and Narrative: Vital Signs: Last Vital Signs Temp 98.0 F 07/27/21 15:11 Pulse 72 07/27/21 15:11 Resp 18 07/27/21 15:11 BP 120/56 L 07/27/21 15:11 Pulse Ox 100 07/27/21 15:11 Body Mass Index 32.7 General: no acute distress HEENT: atraumatic Neck: normal to visual inspection CVS: S1, S2, RRR Resp: CTA bilateral Chest: non tender GI: soft, luq tender, non distended : no CVA tenderness Skin: no rashes Extremities: no edema Neuro: Oriented X3, grossly intact Psych: cooperative Results Labs CBC and Chem 7: 07/27/21 12:14 07/27/21 12:14 Labs: Laboratory Results - last 24 hr 07/27/21 07/27/21 07/27/21 12:13 12:14 12:14 MCV 93.1 MCH 31.4 MCHC 33.7 RDW 13.8 Plt Count 181 MPV 9.4 Immature Gran % (Auto) 0.6 H Neut % (Auto) 70.5 Lymph % (Auto) 15.2 L [place] % (Auto) 10.0 Eos % (Auto) 2.9 Baso % (Auto) 0.8 Lymph # (Auto) 1.1 L [place] # (Auto) 0.7 Eos # (Auto) 0.2 Baso # (Auto) 0.1 Abs Immat Gran (auto) 0.04 H Absolute Neuts (auto) 5.10 Absolute Nucleated RBC 0.000 Nucleated RBC % (auto) 0.0 PT 13.1 H INR 1.2 H APTT 34.1 VBG pH VBG pCO2 VBG pO2 VBG HCO3 VBG O2 Saturation VBG Base Excess Anion Gap Estim Creat Clear Calc Estimated GFR Random Glucose Calcium Magnesium Total Bilirubin Direct Bilirubin AST ALT Alkaline Phosphatase Ammonia Total Protein Albumin Lipase Urine Color Urine Appearance Urine pH Ur Specific [place] Urine Protein Urine Glucose (UA) Urine Ketones Urine Blood Urine Nitrite Ur Leukocyte Esterase COVID-19 (MARKIE) Negative COVID-19 Clin Com See Note Blood Type Antibody Screen 07/27/21 07/27/21 07/27/21 12:14 12:14 12:19 MCV MCH MCHC RDW Plt Count MPV Immature Gran % (Auto) Neut % (Auto) Lymph % (Auto) [place] % (Auto) Eos % (Auto) Baso % (Auto) Lymph # (Auto) [place] # (Auto) Eos # (Auto) Baso # (Auto) Abs Immat Gran (auto) Absolute Neuts (auto) Absolute Nucleated RBC Nucleated RBC % (auto) PT INR APTT VBG pH 7.37 VBG pCO2 47 VBG pO2 37 VBG HCO3 27 H VBG O2 Saturation 49.0 VBG Base Excess 2.0 Anion Gap 12 Estim Creat Clear Calc 58.4 Estimated GFR 46 Random Glucose 252 H Calcium 9.1 D Magnesium 1.6 Total Bilirubin 2.2 H Direct Bilirubin 0.9 H AST 25 ALT 12 Alkaline Phosphatase 94 Ammonia 30 Total Protein 6.6 Albumin 3.1 L Lipase 26 Urine Color Urine Appearance Urine pH Ur Specific [place] Urine Protein Urine Glucose (UA) Urine Ketones Urine Blood Urine Nitrite Ur Leukocyte Esterase COVID-19 (MARKIE) COVID-19 Clin Com Blood Type Antibody Screen 11/02/21 11/02/21 14:08 15:13 MCV MCH MCHC RDW Plt Count MPV Immature Gran % (Auto) Neut % (Auto) Lymph % (Auto) [place] % (Auto) Eos % (Auto) Baso % (Auto) Lymph # (Auto) [place] # (Auto) Eos # (Auto) Baso # (Auto) Abs Immat Gran (auto) Absolute Neuts (auto) Absolute Nucleated RBC Nucleated RBC % (auto) PT INR APTT VBG pH VBG pCO2 VBG pO2 VBG HCO3 VBG O2 Saturation VBG Base Excess Anion Gap Estim Creat Clear Calc Estimated GFR Random Glucose Calcium Magnesium Total Bilirubin Direct Bilirubin AST ALT Alkaline Phosphatase Ammonia Total Protein Albumin Lipase Urine Color YELLOW Urine Appearance CLEAR Urine pH 6.5 Ur Specific [place] 1.010 Urine Protein NEG Urine Glucose (UA) NEG Urine Ketones NEG Urine Blood NEG Urine Nitrite NEG Ur Leukocyte Esterase NEG COVID-19 (MARKIE) COVID-19 Clin Com Blood Type A Positive Antibody Screen NEGATIVE Imaging Radiologist's Impressions: Impressions Abdomen/Pelvis CT 07/27/21 12:02 IMPRESSION: Enlarged spleen spleen. Large low-attenuation peripheral areas in the spleen probably representing splenic infarcts. Differential would include changes related to trauma. Extensive varices including very dilated left ovarian vein measuring up to 4 x 2.5 cm. Mild cirrhotic changes of the liver. Small and main portal vein with question of a thrombus. Contracted gallbladder and gallstones. Stable right adrenal lesion probably representing a benign adenoma. Assessment and Plan (1) Abdominal pain: Qualifiers: Abdominal location: left upper quadrant Qualified Code(s): R10.12 - Left upper quadrant pain Status: Acute (2) Infarction of spleen: Status: Acute 61F with be cirrhosis and portal vein thrombosus presented with abdominal pain, found to have splenic infarcts BE cirrhosis with portal vein thrombosis and splenic infarcts Will start IV heparin Patient is high risk for high risk bleeds will monitor inpatient Follow CBC GI eval Paroxysmal atrial fibrillation Metoprolol Normally not on anticoagulation due to bleeding risk Hypothyroid Synthroid Diabetes Hold metformin Insulin Hyperlipidemia Statin Quality Stroke Does the patient have a stroke diagnosis?: No VTE Prior VTE?: Yes VTE Risk Level:: Medical - moderate - high VTE Device Contraindication: Treatment Not Indicated VTE Drug Contraindication: N/A - Med Ordered
--- NOTE | 2021-07-27 16:17 | PHA.MEDREC ---
Pharmacy Consult ? Medication Reconciliation Pharmacy has completed the medication reconciliation. Patient was able to report time of day she takes all medications. She reports she does not always take her magnesium TID. Also reports that she only take Flovent at night when she remembers even though it prescribed BID. Haylie Clancy, PharmD
--- NOTE | 2021-07-27 17:05 | P.CNGI_ITS ---
History of Present Illness Data of Consult Service Date: 07/27/21 Requesting physician: Zeb Mar Primary Care Provider: Tony Toure MD HPI Reason for consult: Abdominal pain, ? PVT, splenic infarct 61 YF with hypertension, hyperlidemia, DM x 20 yrs, Thyroid disease, asthma, obesity with ESLD due to CHIN. Cirrhosis has been complicated by portal hypertension, splenomegaly, esophageal varices eradicated with band ligation at [facility]. Patient has been listed for liver transplant at [facility] - Blood group is A + She was on Eliquis for AF - discontinued a year ago by Cardiology. Pt came to [facility] ED this morning with abdominal pain: HPI narrative: 61 yo female pmhx cirrhosis, CHIN (on wait list for liver transplant at [facility]), GERD, iron deficiency anemia, paroxysmal atrial fibrillation not on anticoagulation, hypertension, hyperlipidemia , portal vein thrombosis (in 2019), DM presents to the emergency department with 2 weeks of progressively worsening left upper quadrant pain.? She states that the pain is intermittent, and severe in nature, nonradiating, and it feels like stabbing feeling.? She has no other concerns at this time.? Denies chest pain, shortness of breath, fevers, chills, nausea, vomiting, diarrhea, weakness, changes in urination.? She is followed by Dr. Jack. Pt complains of intermittent LUQ abdominal pain x 2 weeks which became worse yesterday Treatments prior to arrival: other (Tyleonol ) Patient denies symptoms of heartburn, dysphagia, nausea, vomiting, change in appetite or weight. Denies recent change in bowel habits, constipation, diarrhea, black stools or rectal bleeding. IMAGING STUDIES: 07/27/[address] SCAN SHOWED (personally reviewed with radiology): Enlarged spleen spleen. Large low-attenuation peripheral areas in the spleen probably representing splenic infarcts. Differential would include changes related to trauma. Extensive varices including very dilated left ovarian vein measuring up to 4 x 2.5 cm. Mild cirrhotic changes of the liver. Small and main portal vein with question of a thrombus. Contracted gallbladder and gallstones. Stable right adrenal lesion probably representing a benign adenoma. ? 07/27/21 DUPLEX US SHOWED: The portal vein appears thrombosed as no flow could be identified in a normal portal venous system. Other findings as described above.? Review of Systems Constitutional: Constitutional: Reports fatigue, Denies fever(s), Denies headache(s) and Denies weight loss Eyes: Eyes: Denies eye discharge and Denies irritation ENT: Reports Normal hearing present, Denies dysphagia, Denies dizziness and De nies headache(s) Cardiovascular: Cardiovascular: Denies chest pain, Denies leg edema and Denies dyspnea on exertion Respiratory: Respiratory: Denies cough and Denies dyspnea on exertion Gastrointestinal: Gastrointestinal: Reports abdominal pain, Denies change in bowel habits, Denies dysphagia and Denies heartburn Genitourinary: Genitourinary: Denies difficulty voiding and Denies dysuria Musculoskeletal: Musculoskeletal: Denies back pain and Denies arthralgias Integumentary/Breasts: Skin/Breast: Denies pruritus, Denies rash and Denies jaundice Neurologic: Reports Normal hearing present, Denies Abnormal speech present, Denies dizziness, Denies headache(s) and Denies seizure-like activity Psychiatric: Psychiatric: Denies anxiety, Denies depression and Denies panic attacks Endocrine: Endocrine: Denies cold intolerance, Reports fatigue, Denies flushing and Denies heat intolerance PMFSH Past Medical History Medical History Asthma Cirrhosis of liver with ascites Esophageal varices without bleeding GERD (gastroesophageal reflux disease) History of colonic polyps Hyperlipidemia Hypertension Iron deficiency anemia Obesity (BMI 35.0-39.9 without comorbidity) PAC (premature atrial contraction) Paroxysmal atrial fibrillation Portal hypertension Shingles Thyroid disease Type 2 diabetes mellitus Family History Family History Father No problems noted. Mother No problems noted. Paternal Grandmother Colon cancer Surgical History Surgical History History of partial hysterectomy (~1998) Hx of colonoscopy Hx of endoscopy Status post surgical removal of pilonidal cyst (~1979) Social History Social History Household Members: Spouse Housing: House Alcohol intake: never Patient Tobacco Use Status: Never used Tobacco service: No Current occupational status: disabled Meds Allergies Allergy/AdvReac Type Severity Reaction Status Date / Time metoclopramide [From REGLAN] Allergy Unknown SWELLING Verified 05/20/21 14:28 penicillin V Allergy Unknown Unknown Verified 05/20/21 14:28 tramadol [TRAMADOL] Allergy Unknown SWELLING Verified 05/20/21 14:28 From AUGMENTIN Allergy Mild COUGHING, Uncoded 06/11/20 15:44 LOW BP\ Active Medications: Current Medications Dextrose (Dextrose 50 % 25 Gm/50 Ml Vial) 25 gm IVPUSH Q15M PRN; Protocol PRN Reason: per Hypoglycemia Standing Ord. Ferrous Sulfate (Ferrous Sulfate 324 Mg Tablet.Dr) 324 mg PO BID [facility] Fluticasone Propionate (Fluticasone Propionate 250 Mcg Blst.W.Dev) 1 puff INHALE DAILY@1999 [facility] Furosemide (Furosemide 20 Mg Tablet) 20 mg PO DAILY KAVON; Protocol Glucose (Glucose Gel 15 Gm Gel..Gram.) 15 gm PO Q15M PRN; Protocol PRN Reason: per Hypoglycemia Standing Ord. Heparin Sodium (Porcine) (Heparin Sodium,Porcine 5,000 Unit/Ml Vial) 3,800 unit 40 unit/kg (3800 unit) IVPUSH PROTOCOL BOLUS PRN; Protocol PRN Reason: 40 unit/kg - Heparin Protocol Heparin Sodium (Porcine) (Heparin Sodium,Porcine 5,000 Unit/Ml Vial) 7,600 unit 80 unit/kg (7600 unit) IVPUSH PROTOCOL BOLUS PRN; Protocol PRN Reason: 80 unit/kg - Heparin Protocol Hydromorphone HCl (Hydromorphone Hcl 0.5 Mg/0.5 Ml Syringe) 0.5 mg IVPUSH Q4H PRN; Protocol PRN Reason: Pain, Severe (Pain Scale 7-10) Heparin Sodium/Sodium Chloride () 25,000 unit in 250 mls @ 0 mls/hr IVCONT .Q0M [facility]; Protocol Insulin Glargine (Insulin Glargine,Hum.Rec.Anlog 100 Unit/Ml 10 Ml Vial) 50 unit SUBCUT BEDTIME [facility] Insulin Human Lispro (Insulin Lispro 100 Unit/Ml 3 Ml Vial) 0 unit SUBCUT QIDACHS [facility]; Protocol Lactulose (Lactulose 20 Gm/30 Ml Solution) 10 gm PO BID [facility] Levothyroxine Sodium (Levothyroxine Sodium 112 Mcg Tablet) 112 mcg PO MoTuWeThFr@0600 [facility] Levothyroxine Sodium (Levothyroxine Sodium 25 Mcg Tablet) 25 mcg PO MoTuWeThFr@0600 [facility] Lorazepam (Lorazepam 0.5 Mg Tablet) 0.5 mg PO BEDTIME [facility] Magnesium Oxide (Magnesium Oxide 400 Mg Tablet) 800 mg PO TID [facility] Metoprolol Succinate (Metoprolol Succinate Er 25 Mg Tab.Er.24h) 25 mg PO DAILY [facility]; Protocol Non-Formulary Medication (Cyclosporine) 1 drop EYE-BOTH BEDTIME [facility] Nystatin/Triamcinolone Acetonide (Nystatin/Triamcinolone Cream 15 Gm Tube) 1 appl TOPICAL BID PRN PRN Reason: Rash Omeprazole (Omeprazole 40 Mg Capsule.Dr) 40 mg PO DAILY@0630 [facility] Ondansetron HCl (Ondansetron Odt 4 Mg Tab.Rapdis) 4 mg TRANSLINGU Q6H PRN PRN Reason: nausea/vomiting Pharmacy Consult (Consult Rx Perform Med Rec) 1 each MISCELLANE ONCE PRN PRN Reason: Consult order Pravastatin Sodium (Pravastatin Sodium 40 Mg Tablet) 40 mg PO BEDTIME [facility] Rifaximin (Rifaximin 550 Mg Tablet) 550 mg PO BID [facility] Sodium Chloride (0.9 % Sodium Chloride Flush 3 Ml Syringe) 3 ml IVFLUSH QSHIFT [facility] Spironolactone (Spironolactone 25 Mg Tablet) 100 mg PO DAILY [facility]; Protocol Vitamin D (Cholecalciferol (Vitamin D3) 25 Mcg Tablet) 100 mcg PO DAILY [facility] Home Medications Medication Instructions Recorded Confirmed Last Taken Type blood sugar diagnostic #10 ea 07/02/20 06/24/21 Unknown History cholecalciferol (vitamin D3) 50 100 mcg PO DAILY 07/02/20 07/27/21 07/27/21 History mcg (2,000 unit) capsule clotrimazole-betamethasone 1 1 applic TOPICAL BID PRN 07/02/20 07/27/21 Unknown History %-0.05 % topical cream cyclosporine 0.05 % eye drops in a 1 drp OPHTHALMIC (EYE) BEDTIME 07/02/20 07/27/21 07/26/21 History dropperette fluticasone propionate 250 1 inh INHALATION BEDTIME 07/02/20 07/27/21 Unknown History mcg/actuation blister powder for inhalation insulin glargine 100 unit/mL (3 50 unit SUBCUT BEDTIME 07/02/20 07/27/21 07/26/21 History mL) subcutaneous pen lactulose 10 gram/15 mL oral 15 ml PO BID 07/02/20 07/27/21 07/26/21 History solution lancets 33 gauge #100 ea 07/02/20 06/24/21 Unknown History lorazepam 0.5 mg tablet 0.5 mg PO BEDTIME 07/02/20 07/27/21 07/26/21 History ondansetron HCl 4 mg tablet 4 mg PO Q6H PRN 07/02/20 07/27/21 Unknown History levothyroxine 137 mcg tablet 137 mcg PO MOTUWETHFR 08/19/20 07/27/21 07/27/21 History lovastatin 40 mg tablet 40 mg PO BEDTIME 08/19/20 07/27/21 07/26/21 History metformin 500 mg tablet 500 mg PO DAILY tab 11/10/20 07/27/21 07/27/21 History metoprolol succinate 25 mg 25 mg PO DAILY 01/01/21 07/27/21 07/27/21 History tablet,extended release 24 hr dulaglutide 1.5 mg/0.5 mL 3 mg SUBCUT FR ml 06/24/21 07/27/21 07/23/21 History subcutaneous pen injector omeprazole 40 mg capsule,delayed 40 mg PO DAILY cap 06/24/21 07/27/21 07/27/21 History release rifaximin 550 mg tablet 550 mg PO BID 06/24/21 07/27/21 07/27/21 History acetaminophen 325 mg tablet 650 mg PO Q4H PRN 07/27/21 07/27/21 Unknown History insulin lispro 100 unit/mL See Protocol SUBCUT TIDAC 07/27/21 07/27/21 07/27/21 History subcutaneous pen (Humalog KwikPen (U-100) Insulin) Physical Exam Vital Signs: Vital Signs: Last Vital Signs Temp 98.0 F 07/27/21 15:11 Pulse 72 07/27/21 15:11 Resp 18 07/27/21 15:11 BP 120/56 L 07/27/21 15:11 Pulse Ox 100 07/27/21 15:11 Body Mass Index 32.7 Const: General: no acute distress and ill appearing Nutritional Appearance: obese Orientation/consciousness: patient oriented x3 Limitations: no limitations HENMT: Head: Yes normal to inspection Ears: hearing grossly normal bilaterally Mouth: Normal oral and palatal mucosa present Eyes: Sclerae: sclerae normal Pupils: Equal, round and reactive pupils present Neck: Neck: Yes normal visual inspection Chest: Chest palpation & inspection: normal inspection of the chest Resp: Effort & Inspection: normal respiratory effort Auscultation: clear to auscultation bilaterally Cardio: Palpation: normal PMI Rate: regular rate Rhythm: regular rhythm Heart sounds: S1 normal heart sound present, S2 normal heart sound present and no murmurs GI: Inspection: Yes distended Palpation (GI): Soft to palpation, Tenderness to palpation present (GI) (LUQ ) and No hepatosplenomegaly present Auscultation: normal bowel sounds Rectal Exam - Female: deferred Skin: General skin exam: no rashes or lesions noted Neuro: General: patient oriented x3, gait normal and moves all extremities Cranial nerves: Yes Equal, round and reactive pupils present and Yes Normal hearing present Speech: No Abnormal speech present Psych: Appearance: grossly normal Mental Status: mental status grossly normal Results Labs CBC & Chem 7: 07/30/21 05:43 07/28/21 05:24 Labs: Short CBC 07/27/21 Range/Units 12:14 WBC 7.2 (4.8-10.8) X10*3/uL Hgb 11.3 L (12.0-16.0) g/dl Hct 33.5 L (37.0-47.0) % Plt Count 181 (160-400) X10*3/uL BMP 07/27/21 12:14 Sodium 132 L Potassium 4.5 Chloride 98 Carbon Dioxide 27 BUN 12 Creatinine 1.18 Calcium 9.1 D Liver Function 07/27/21 Range/Units 12:14 Total Bilirubin 2.2 H (0.0-1.0) mg/dL Direct Bilirubin 0.9 H (0.0-0.5) mg/dL AST 25 (5-31) U/L ALT 12 (0-31) U/L Alkaline Phosphatase 94 (39-117) U/L Albumin 3.1 L (3.5-5.0) g/dL Urine 07/27/21 Range/Units 15:13 Urine Color YELLOW Urine Appearance CLEAR Urine pH 6.5 (5.0-8.0) Ur Specific [place] 1.010 (1.005-1.025) Urine Protein NEG (NEG-TRACE) MG/DL Urine Glucose (UA) NEG (NEG) MG/DL Assessment and Plan (1) Abdominal pain: Qualifiers: Abdominal location: left upper quadrant Qualified Code(s): R10.12 - Left upper quadrant pain Status: Acute (2) Infarction of spleen: Status: Acute (3) Portal hypertension: Status: Acute (4) Cirrhosis of liver with ascites: Status: Acute (5) Portal vein thrombosis: Status: Acute 61 YF with hypertension, hyperlidemia, DM x 20 yrs, Thyroid disease, asthma, obesity, cirrhosis due to CHIN. Cirrhosis has been complicated by portal hypertension, splenomegaly, esophageal varices eradicated with band ligation by Dr Donnelly at [facility] - had an EGD in 07/14 and repeat band ligation not needed. Per pt her last MELD score was 15 (improved from MELD Na score of 18). 11/2018 abdominal ultrasound showed portal vein thrombosis - patient was on apixaban which has been discontinued. Patient is on the Liver Transplant List at [facility] for the past 2 yrs and was advised to arrange for a living donor so wait time can be reduced. Pt admitted to [facility] today with worsening LUQ pain. ABD CT scan showed enlarged spleen spleen with a large low-attenuation peripheral areas in the spleen probably representing splenic infarcts. Extensive varices including very dilated left ovarian vein measuring up to 4 x 2.5 cm. Small main portal vein with question of PVT - confirmed on duplex US. Pt has a hx of PVT in 2019 on an US performed at an outside hospital - which likely resolved on anticoagulation. Need for anticoagulation versus conservative management was discussed with Hepatology fellow at [facility] and with Jennifer Mueller and Isabela. Pt is considered high risk for anticoagulation given cirrhosis and intra- abdominal varices. She has a hx of esophageal varices which have been eradicated with several sessions of band ligation and band ligation was not needed on last EGD. RECOMMENDATIONS: 1. Agree with anticoagulation with heparin (keeping PTT in low therapeutic range) with close monitoring of patient for bleeding with serial CBC 2. Continue diuretics for ascites 3. Continue Lactulose and Rifaximin for hepatic encephalopathy. Pt is scheduled for a FU appt at [facility] on 08/11/21. Per Hepatology fellow, patient's client relationship consultant does not feel that pt needs to be transferred to [facility] and she can be followed as an out patient. Procedures Date of Service Date of Service: 07/27/21
[2021-07-27 17:12] LABS: Glucose, Whole Blood 164 mg/dL (60-115)
[2021-07-27] MEDS: Insulin Lispro 100 UNIT/ML 3 ML VIAL SUBCUT ×2 (17:15→20:29)
[2021-07-27] MEDS: Heparin Sodium,Porcine/1/2NS 25,000 UNIT/250 ML IV.SOLN 10 UNIT IVCONT (17:20)
--- NOTE | 2021-07-27 18:50 | PC.NURSE ---
call from dr oro, she request PTT for heparin drip to be drawn for 8pm rather than the 6hour @ 1120. called floor rn and notified and order placed for lab draw. per dr oro ideal PTT around 50.
[2021-07-27 18:53] VITALS: BP 130/92; PULSE 75; RESP 20; TEMP 37.2; O2SAT 100
[2021-07-27 19:38] VITALS: BP 130/70; PULSE 72; RESP 18; TEMP 36.6; O2SAT 100
[2021-07-27] MEDS: Pravastatin Sodium 40 MG TABLET PO (20:29)
[2021-07-27] MEDS: Ferrous Sulfate 324 MG TABLET.DR PO (20:29)
[2021-07-27] MEDS: Magnesium Oxide 400 MG TABLET 800 MG PO (20:29)
[2021-07-27] MEDS: Lactulose 20 GM/30 ML SOLUTION 10 GM PO (20:30)
[2021-07-27] MEDS: Insulin Glargine,Hum.rec.anlog 100 UNIT/ML 10 ML VIAL 50 UNIT SUBCUT (20:30)
[2021-07-27] MEDS: rifAXIMin 550 MG TABLET PO (20:30)
[2021-07-27 20:32] LABS: PTT Heparin Drip 51.4 SEC (53-77.9)
[2021-07-27 21:11] LABS: Glucose, Whole Blood 195 mg/dL (60-115)
[2021-07-27] MEDS: LORazepam 0.5 MG TABLET PO (22:34)
[2021-07-27] MEDS: Acetaminophen 325 MG TABLET 650 MG PO (22:34)
[2021-07-27 23:06] VITALS: BP 108/62; PULSE 75; RESP 18; TEMP 36.8; O2SAT 97
[2021-07-27 23:49] LABS: PTT Heparin Drip 64.9 SEC (53-77.9)
[2021-07-28] VITALS (9 sets, daily range): BP systolic 106–122; BP diastolic 53–70; PULSE 70–124; RESP 18–20; TEMP 36.6–37.3; O2SAT 95–100
[2021-07-28] MEDS: Metoprolol Tartrate 5 MG/5 ML VIAL IVPUSH (01:26)
[2021-07-28 05:43] LABS: Hematocrit 32.9 % (37.0-47.0); Hemoglobin 11.5 g/dl (12.0-16.0); Mean Corpuscular Volume 91.6 fL (80.0-98.0); Mean Platelet Volume 9.2 fL (9.4-12.3); Platelet Count 175 X10*3/uL (160-400); Red Blood Count 3.59 X10*6/uL (4.20-5.50); Red Cell Distribution Width 13.7 % (11.0-16.0); White Blood Count 7.1 X10*3/uL (4.8-10.8)
[2021-07-28] MEDS: Levothyroxine Sodium 112 MCG TABLET PO (05:56)
[2021-07-28] MEDS: Omeprazole 40 MG CAPSULE.DR PO (05:57)
[2021-07-28] MEDS: Levothyroxine Sodium 25 MCG TABLET PO (05:57)
[2021-07-28 06:01] LABS: INTERNATIONAL NORM RATIO 1.2 (0.9-1.1); Prothrombin Time 13.5 SEC (9.9-13.0)
[2021-07-28 06:03] LABS: PTT Heparin Drip 87.6 SEC (53-77.9)
[2021-07-28 06:13] LABS: Anion Gap 14 (12-20); Blood Urea Nitrogen 12 mg/dL (9-16); Calcium 9.4 mg/dL (8.4-10.2); Carbon Dioxide 24 mmol/L (22-29); Chloride 99 mmol/L (96-108); Creatinine Clr Calc Pharmacy 59.4; Estimated Glomerular Filt Rate 47; Glucose Random 129 mg/dL (60-115); Potassium 4.3 mmol/L (3.3-5.1); Sodium 133 mmol/L (135-145)
--- NOTE | 2021-07-28 06:31 | PC.NURSE ---
Patient noted to convert from SR to afib on tele around midnight. Pt has history of PAF. HR sustaining in the 120-130 for about 30 minutes, Dr. Bynum notified and ordered 5mg IV lopressor. Lopressor given at 0125. Pt converted to SR shortly after then went back and forth between NS to Afib for about 30-40 before staying in SR since around 0200.
[2021-07-28 07:24] LABS: Glucose, Whole Blood 131 mg/dL (60-115)
[2021-07-28] MEDS: Lactulose 20 GM/30 ML SOLUTION 10 GM PO ×2 (08:08→20:53)
[2021-07-28] MEDS: Cholecalciferol (Vitamin D3) 25 MCG TABLET 100 MCG PO (08:09)
[2021-07-28] MEDS: Ferrous Sulfate 324 MG TABLET.DR PO ×2 (08:09→20:53)
[2021-07-28] MEDS: Metoprolol Succinate ER 25 MG TAB.ER.24H PO (08:09)
[2021-07-28] MEDS: rifAXIMin 550 MG TABLET PO ×2 (08:09→20:53)
[2021-07-28] MEDS: Magnesium Oxide 400 MG TABLET 800 MG PO ×3 (08:09→20:53)
[2021-07-28] MEDS: Furosemide 20 MG TABLET PO (08:09)
--- NOTE | 2021-07-28 10:16 | MHC.CM.PN ---
met with pt who lives with her ,pt is independent it is not expecyed that she will need services when dcd has own transport home
[2021-07-28] MEDS: Spironolactone 25 MG TABLET 100 MG PO (11:13)
[2021-07-28 11:16] LABS: Glucose, Whole Blood 190 mg/dL (60-115)
[2021-07-28] MEDS: Insulin Lispro 100 UNIT/ML 3 ML VIAL SUBCUT ×3 (12:09→20:54)
--- NOTE | 2021-07-28 14:09 | PC.NURSE ---
heparin gtt patent. No change at 1300. Next PTT HD due at 1900.
--- NOTE | 2021-07-28 15:46 | HO.PM.IMPN ---
Subjective Subjective Date of Service: 07/28/21 Interval History: Being followed for portal vein thrombosis and splenic infarction, complaining of abdominal pain with coughing sneezing and movement, otherwise denies any acute symptoms of fever chills no nausea no vomiting, denies hematemesis melena, hematocrit remains stable overnight. Review of Systems General no headache no dizziness no fever chills. CVS no chest pain, no palpitation. Respiratory no cough no sob. Gastrointestinal no nausea ,no vomiting, abdominal pain as above Review of Systems: Yes all other systems are reviewed and are negative Physical Exam Vital Signs: Vital Signs: Last Vital Signs Temp 98 F 07/28/21 15:35 Pulse 77 07/28/21 15:35 Resp 18 07/28/21 15:35 BP 119/59 L 07/28/21 15:35 Pulse Ox 99 07/28/21 15:35 Body Mass Index 32.7 General:Awake aler t x3, no acute dis tress Neck: normal ,no jvd CVS: S1, S2, RRR Resp: CTA bilateral GI: soft , nontender, non d istended : no CV A tenderness Skin: no rashes Extremi ties: no edema Lydia ro: Oriented X3, g rossly intact Psyc h: Appropriate in sight Objective Data Active Medications Acetaminophen (Acetaminophen 325 Mg Tablet) 650 mg PO Q6H PRN PRN Reason: Pain, Severe (Pain Scale 7-10) Last Admin: 07/27/21 22:34 Dose: 650 mg Documented by: BLADIMIR Dextrose (Dextrose 50 % 25 Gm/50 Ml Vial) 25 gm IVPUSH Q15M PRN; Protocol PRN Reason: per Hypoglycemia Standing Ord. Ferrous Sulfate (Ferrous Sulfate 324 Mg Tablet.) 324 mg PO BID [facility] Last Admin: 07/28/21 08:09 Dose: 324 mg Documented by: PRESLEY Fluticasone Propionate (Fluticasone Propionate 250 Mcg Blst.W.Dev) 1 puff INHALE DAILY@1999 [facility] Last Admin: 07/27/21 22:19 Dose: Not Given Documented by: RAVIN Non-Admin Reason: Med Not Available Furosemide (Furosemide 20 Mg Tablet) 20 mg PO DAILY [facility]; Protocol Last Admin: 07/28/21 08:09 Dose: 20 mg Documented by: PRESLEY Glucose (Glucose Gel 15 Gm Gel..Gram.) 15 gm PO Q15M PRN; Protocol PRN Reason: per Hypoglycemia Standing Ord. Heparin Sodium (Porcine) (Heparin Sodium,Porcine 5,000 Unit/Ml Vial) 3,800 unit 40 unit/kg (3800 unit) IVPUSH PROTOCOL BOLUS PRN; Protocol PRN Reason: 40 unit/kg - Heparin Protocol Heparin Sodium (Porcine) (Heparin Sodium,Porcine 5,000 Unit/Ml Vial) 7,600 unit 80 unit/kg (7600 unit) IVPUSH PROTOCOL BOLUS PRN; Protocol PRN Reason: 80 unit/kg - Heparin Protocol Hydromorphone HCl (Hydromorphone Hcl 0.5 Mg/0.5 Ml Syringe) 0.5 mg IVPUSH Q4H PRN; Protocol PRN Reason: Pain, Severe (Pain Scale 7-10) Heparin Sodium/Sodium Chloride () 25,000 unit in 250 mls @ 0 mls/hr IVCONT .Q0M [facility]; Protocol Last Titration: 07/28/21 06:43 Dose: 8.55 units/kg/hr, 8.11 mls/hr Documented by: BLADIMIR Cosigned by: PRESLEY Insulin Glargine (Insulin Glargine,Hum.Rec.Anlog 100 Unit/Ml 10 Ml Vial) 50 unit SUBCUT BEDTIME [facility] Last Admin: 07/27/21 20:30 Dose: 50 unit Documented by: BLADIMIR Insulin Human Lispro (Insulin Lispro 100 Unit/Ml 3 Ml Vial) 0 unit SUBCUT QIDACHS [facility]; Protocol Last Admin: 07/28/21 12:09 Dose: 2 unit Documented by: PRESLEY Lactulose (Lactulose 20 Gm/30 Ml Solution) 10 gm PO BID [facility] Last Admin: 07/28/21 08:08 Dose: 10 gm Documented by: PRESLEY Levothyroxine Sodium (Levothyroxine Sodium 112 Mcg Tablet) 112 mcg PO MoTuWeThFr@0600 [facility] Last Admin: 07/28/21 05:56 Dose: 112 mcg Documented by: BLADIMIR Levothyroxine Sodium (Levothyroxine Sodium 25 Mcg Tablet) 25 mcg PO MoTuWeThFr@0600 [facility] Last Admin: 07/28/21 05:57 Dose: 25 mcg Documented by: BLADIMIR Lorazepam (Lorazepam 0.5 Mg Tablet) 0.5 mg PO BEDTIME [facility] Last Admin: 07/27/21 22:34 Dose: 0.5 mg Documented by: BLADIMIR Magnesium Oxide (Magnesium Oxide 400 Mg Tablet) 800 mg PO TID [facility] Last Admin: 07/28/21 14:24 Dose: 800 mg Documented by: PRESLEY Metoprolol Succinate (Metoprolol Succinate Er 25 Mg Tab.Er.24h) 25 mg PO DAILY [facility]; Protocol Last Admin: 07/28/21 08:09 Dose: 25 mg Documented by: PRESLEY Nystatin/Triamcinolone Acetonide (Nystatin/Triamcinolone Cream 15 Gm Tube) 1 appl TOPICAL BID PRN PRN Reason: Rash Omeprazole (Omeprazole 40 Mg Capsule.Dr) 40 mg PO DAILY@0630 [facility] Last Admin: 07/28/21 05:57 Dose: 40 mg Documented by: BLADIMIR Ondansetron HCl (Ondansetron Odt 4 Mg Tab.Rapdis) 4 mg TRANSLINGU Q6H PRN PRN Reason: nausea/vomiting Pharmacy Consult (Consult Rx Perform Med Rec) 1 each MISCELLANE ONCE PRN PRN Reason: Consult order Pravastatin Sodium (Pravastatin Sodium 40 Mg Tablet) 40 mg PO BEDTIME [facility] Last Admin: 07/27/21 20:29 Dose: 40 mg Documented by: BLADIMIR Rifaximin (Rifaximin 550 Mg Tablet) 550 mg PO BID [facility] Last Admin: 07/28/21 08:09 Dose: 550 mg Documented by: PRESLEY Sodium Chloride (0.9 % Sodium Chloride Flush 3 Ml Syringe) 3 ml IVFLUSH QSHIFT [facility] Last Admin: 07/28/21 15:30 Dose: Not Given Documented by: JONE Non-Admin Reason: IV Running Spironolactone (Spironolactone 25 Mg Tablet) 100 mg PO DAILY [facility]; Protocol Last Admin: 07/28/21 11:13 Dose: 100 mg Documented by: PRESLEY Vitamin D (Cholecalciferol (Vitamin D3) 25 Mcg Tablet) 100 mcg PO DAILY [facility] Last Admin: 07/28/21 08:09 Dose: 100 mcg Documented by: PRESLEY Labs CBC & Chem 7: 07/28/21 05:24 07/28/21 05:24 Labs: Laboratory Results - last 24 hr 07/27/21 07/27/21 07/27/21 17:08 19:56 19:59 MCV MCH MCHC RDW Plt Count MPV Absolute Nucleated RBC Nucleated RBC % (auto) PT INR PTT (Heparin Protocol) 51.4 L Anion Gap Estim Creat Clear Calc Estimated GFR POC Glucose 164 H 195 H Random Glucose Calcium 07/27/21 07/28/21 07/28/21 23:24 05:24 05:24 MCV 91.6 MCH 32.0 MCHC 35.0 RDW 13.7 Plt Count 175 MPV 9.2 L Absolute Nucleated RBC 0.000 Nucleated RBC % (auto) 0.0 PT 13.5 H INR 1.2 H PTT (Heparin Protocol) 64.9 D 87.6 H D Anion Gap Estim Creat Clear Calc Estimated GFR POC Glucose Random Glucose Calcium 07/28/21 07/28/21 07/28/21 05:24 07:01 11:12 MCV MCH MCHC RDW Plt Count MPV Absolute Nucleated RBC Nucleated RBC % (auto) PT INR PTT (Heparin Protocol) Anion Gap 14 Estim Creat Clear Calc 59.4 Estimated GFR 47 POC Glucose 131 H 190 H Random Glucose 129 H Calcium 9.4 07/28/21 12:43 MCV MCH MCHC RDW Plt Count MPV Absolute Nucleated RBC Nucleated RBC % (auto) PT INR PTT (Heparin Protocol) 72.0 Anion Gap Estim Creat Clear Calc Estimated GFR POC Glucose Random Glucose Calcium Assessment and Plan (1) Portal vein thrombosis: Status: Acute (2) Abdominal pain: Status: Acute (3) Infarction of spleen: Status: Acute (4) Type 2 diabetes mellitus: Status: Acute (5) Thyroid disease: Status: Acute Assessment and Plan: 61F with be cirrhosis and portal vein thrombosus presented with abdominal pain, found to have splenic infarcts 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 Paroxysmal atrial fibrillation Currently normal sinus rhythm stable ventricular rate continue Metoprolol Normally not on anticoagulation due to bleeding risk Chronic mild hyponatremia likely due to cirrhosis Hypothyroid Continue Synthroid Diabetes Is stable blood sugars continue insulin sliding scale and Hold metformin Hyperlipidemia Statin Quality Stroke Does the patient have a stroke diagnosis?: No VTE Prior VTE?: Yes VTE Risk Level:: Medical - moderate - high VTE Device Contraindication: Treatment Not Indicated VTE Drug Contraindication: N/A - Med Ordered
[2021-07-28 16:38] LABS: Glucose, Whole Blood 234 mg/dL (60-115)
[2021-07-28 19:20] LABS: PTT Heparin Drip 67.3 SEC (53-77.9)
[2021-07-28] MEDS: Fluticasone Propionate 250 MCG BLST.W.DEV 1 PUFF INHALE (19:52)
[2021-07-28 20:24] LABS: Glucose, Whole Blood 214 mg/dL (60-115)
[2021-07-28] MEDS: Insulin Glargine,Hum.rec.anlog 100 UNIT/ML 10 ML VIAL 50 UNIT SUBCUT (20:53)
[2021-07-28] MEDS: LORazepam 0.5 MG TABLET PO (20:53)
[2021-07-28] MEDS: Pravastatin Sodium 40 MG TABLET PO (20:53)
[2021-07-28] MEDS: 0.9 % Sodium Chloride Flush 3 ML SYRINGE IVFLUSH (20:54)
[2021-07-28] MEDS: Heparin Sodium,Porcine/1/2NS 25,000 UNIT/250 ML IV.SOLN 8.11 UNIT IVCONT (21:00)
[2021-07-29] VITALS (9 sets, daily range): BP systolic 99–116; BP diastolic 55–64; PULSE 66–73; RESP 15–18; TEMP 36.4–37.2; O2SAT 97–100
[2021-07-29] MEDS: Levothyroxine Sodium 112 MCG TABLET PO (05:32)
[2021-07-29] MEDS: Levothyroxine Sodium 25 MCG TABLET PO (05:32)
[2021-07-29] MEDS: Omeprazole 40 MG CAPSULE.DR PO (05:32)
[2021-07-29 06:47] LABS: Hematocrit 33.1 % (37.0-47.0); Hemoglobin 11.2 g/dl (12.0-16.0)
[2021-07-29 06:54] LABS: PTT Heparin Drip 84.6 SEC (53-77.9)
[2021-07-29 07:35] LABS: Glucose, Whole Blood 146 mg/dL (60-115)
[2021-07-29] MEDS: rifAXIMin 550 MG TABLET PO ×2 (10:29→20:40)
[2021-07-29] MEDS: Furosemide 20 MG TABLET PO (10:29)
[2021-07-29] MEDS: Metoprolol Succinate ER 25 MG TAB.ER.24H PO (10:29)
[2021-07-29] MEDS: Cholecalciferol (Vitamin D3) 25 MCG TABLET 100 MCG PO (10:30)
[2021-07-29] MEDS: Ferrous Sulfate 324 MG TABLET.DR PO ×2 (10:30→20:35)
[2021-07-29] MEDS: Spironolactone 25 MG TABLET 100 MG PO (10:30)
[2021-07-29] MEDS: Magnesium Oxide 400 MG TABLET 800 MG PO ×3 (10:30→20:35)
[2021-07-29 10:47] LABS: Alpha Fetoprotein 2.4 ng/mL
[2021-07-29 11:39] LABS: Glucose, Whole Blood 222 mg/dL (60-115)
[2021-07-29] MEDS: Insulin Lispro 100 UNIT/ML 3 ML VIAL SUBCUT ×3 (11:50→20:49)
[2021-07-29 13:47] LABS: PTT Heparin Drip 52.4 SEC (53-77.9)
[2021-07-29] MEDS: Heparin Sodium,Porcine 5,000 UNIT/ML VIAL 3800 UNIT IVPUSH (14:34)
[2021-07-29 16:16] LABS: Glucose, Whole Blood 234 mg/dL (60-115)
--- NOTE | 2021-07-29 17:49 | P.PNIM_ITS ---
Subjective Subjective Date of Service: 07/29/21 Interval History: Being followed for splenic infarction, left upper quadrant abdominal pain is improving, complaining of mild pain with sneezing, denies fever chills, no other acute issues overnight. Review of Systems General no headache no dizziness no fever chills.? CVS no chest pain, no palpitation.? Respiratory no cough no sob.? Gastrointestinal no nausea ,no vomiting, abdominal pain as above Review of Systems: Yes all other systems are reviewed and are negative Physical Exam Vital Signs: Vital Signs: Last Vital Signs Temp 98.9 F 07/29/21 15:41 Pulse 73 07/29/21 15:41 Resp 18 07/29/21 15:41 BP 107/55 L 07/29/21 15:41 Pulse Ox 98 07/29/21 15:41 Body Mass Index 32.7 General:Awake alert x3, no acute distress Neck: normal?,no jvd CVS: S1,S2, RRR Resp: CTAbilateral GI: soft, nontender, non distended : no CVA tenderness Skin:?no rashes Extremities: no edema Neuro: Oriented X3, grossly intact Psych:? Appropriate insight Objective Data Active Medications Acetaminophen (Acetaminophen 325 Mg Tablet) 650 mg PO Q6H PRN PRN Reason: Pain, Severe (Pain Scale 7-10) Last Admin: 07/27/21 22:34 Dose: 650 mg Documented by: BLADIMIR Apixaban (Apixaban 5 Mg Tablet) 10 mg PO BID [facility] Stop: 08/05/21 09:01 Dextrose (Dextrose 50 % 25 Gm/50 Ml Vial) 25 gm IVPUSH Q15M PRN; Protocol PRN Reason: per Hypoglycemia Standing Ord. Ferrous Sulfate (Ferrous Sulfate 324 Mg Tablet.Dr) 324 mg PO BID [facility] Last Admin: 07/29/21 10:30 Dose: 324 mg Documented by: EDITH Fluticasone Propionate (Fluticasone Propionate 250 Mcg Blst.W.Dev) 1 puff INHALE DAILY@1999 [facility] Last Admin: 07/28/21 19:52 Dose: 1 puff Documented by: RAVIN Furosemide (Furosemide 20 Mg Tablet) 20 mg PO DAILY [facility]; Protocol Last Admin: 07/29/21 10:29 Dose: 20 mg Documented by: EDITH Glucose (Glucose Gel 15 Gm Gel..Gram.) 15 gm PO Q15M PRN; Protocol PRN Reason: per Hypoglycemia Standing Ord. Hydromorphone HCl (Hydromorphone Hcl 0.5 Mg/0.5 Ml Syringe) 0.5 mg IVPUSH Q4H P RN; Protocol PRN Reason: Pain, Severe (Pain Scale 7-10) Insulin Glargine (Insulin Glargine,Hum.Rec.Anlog 100 Unit/Ml 10 Ml Vial) 50 unit SUBCUT BEDTIME [facility] Last Admin: 07/28/21 20:53 Dose: 50 unit Documented by: TRINY Insulin Human Lispro (Insulin Lispro 100 Unit/Ml 3 Ml Vial) 0 unit SUBCUT QIDACHS [facility]; Protocol Last Admin: 07/29/21 16:43 Dose: 4 unit Documented by: JUDI Lactulose (Lactulose 20 Gm/30 Ml Solution) 10 gm PO BID [facility] Last Admin: 07/29/21 10:36 Dose: Not Given Documented by: EDITH Non-Admin Reason: Patient Refused Levothyroxine Sodium (Levothyroxine Sodium 112 Mcg Tablet) 112 mcg PO MoTuWeThFr@0600 [facility] Last Admin: 07/29/21 05:32 Dose: 112 mcg Documented by: TRINY Levothyroxine Sodium (Levothyroxine Sodium 25 Mcg Tablet) 25 mcg PO MoTuWeThFr@0600 [facility] Last Admin: 07/29/21 05:32 Dose: 25 mcg Documented by: TRINY Lorazepam (Lorazepam 0.5 Mg Tablet) 0.5 mg PO BEDTIME [facility] Last Admin: 07/28/21 20:53 Dose: 0.5 mg Documented by: TRINY Magnesium Oxide (Magnesium Oxide 400 Mg Tablet) 800 mg PO TID [facility] Last Admin: 07/29/21 16:05 Dose: 800 mg Documented by: EDITH Metoprolol Succinate (Metoprolol Succinate Er 25 Mg Tab.Er.24h) 25 mg PO DAILY [facility]; Protocol Last Admin: 07/29/21 10:29 Dose: 25 mg Documented by: EDITH Nystatin/Triamcinolone Acetonide (Nystatin/Triamcinolone Cream 15 Gm Tube) 1 appl TOPICAL BID PRN PRN Reason: Rash Omeprazole (Omeprazole 40 Mg Capsule.) 40 mg PO DAILY@0630 [facility] Last Admin: 07/29/21 05:32 Dose: 40 mg Documented by: TRINY Ondansetron HCl (Ondansetron Odt 4 Mg Tab.Rapdis) 4 mg TRANSLINGU Q6H PRN PRN Reason: nausea/vomiting Pharmacy Consult (Consult Rx Perform Med Rec) 1 each MISCELLANE ONCE PRN PRN Reason: Consult order Pravastatin Sodium (Pravastatin Sodium 40 Mg Tablet) 40 mg PO BEDTIME [facility] Last Admin: 07/28/21 20:53 Dose: 40 mg Documented by: TRINY Rifaximin (Rifaximin 550 Mg Tablet) 550 mg PO BID [facility] Last Admin: 07/29/21 10:29 Dose: 550 mg Documented by: EDITH Sodium Chloride (0.9 % Sodium Chloride Flush 3 Ml Syringe) 3 ml IVFLUSH QSHIFT [facility] Last Admin: 07/29/21 16:05 Dose: Not Given Documented by: EDITH Non-Admin Reason: IV Running Spironolactone (Spironolactone 25 Mg Tablet) 100 mg PO DAILY [facility]; Protocol Last Admin: 07/29/21 10:30 Dose: 100 mg Documented by: EDITH Vitamin D (Cholecalciferol (Vitamin D3) 25 Mcg Tablet) 100 mcg PO DAILY [facility] Last Admin: 07/29/21 10:30 Dose: 100 mcg Documented by: EDITH Labs CBC & Chem 7: 07/29/21 05:45 07/28/21 05:24 Labs: Laboratory Results - last 24 hr 07/28/21 07/28/21 07/28/21 05:24 19:00 20:21 PTT (Heparin Protocol) 67.3 POC Glucose 214 H Alpha Fetoprotein 2.4 07/29/21 07/29/21 07/29/21 05:45 07:15 11:13 PTT (Heparin Protocol) 84.6 H D POC Glucose 146 H 222 H Alpha Fetoprotein 07/29/21 07/29/21 13:20 16:10 PTT (Heparin Protocol) 52.4 L D POC Glucose 234 H Alpha Fetoprotein Assessment and Plan (1) Portal vein thrombosis: Status: Acute (2) Abdominal pain: Status: Acute (3) Infarction of spleen: Status: Acute (4) Type 2 diabetes mellitus: Status: Acute Assessment and Plan: 61F with be cirrhosis and portal vein thrombosus presented with abdominal pain , found to have splenic infarcts 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 Jack continue lactulose and rifaximin Continue diuretics Patient is on transplant list at [facility] and has not follow-up appointment on 08/11/2021 Plan for discharge home tomorrow if remains hemodynamically stable with stable hematocrit Paroxysmal atrial fibrillation Currently normal sinus rhythm stable ventricular rate, continue Metoprolol Normally not on anticoagulation due to bleeding risk Chronic mild hyponatremia likely due to cirrhosis stable Hypothyroid Continue Synthroid Diabetes elevated blood sugars continue insulin sliding scale and resume metformin Hyperlipidemia Statin Quality Stroke Does the patient have a stroke diagnosis?: No VTE Prior VTE?: Yes VTE Risk Level:: Medical - moderate - high VTE Device Contraindication: Treatment Not Indicated VTE Drug Contraindication: N/A - Med Ordered
[2021-07-29] MEDS: Apixaban 5 MG TABLET 10 MG PO (20:37)
[2021-07-29] MEDS: Pravastatin Sodium 40 MG TABLET PO (20:40)
[2021-07-29 20:41] LABS: Glucose, Whole Blood 211 mg/dL (60-115)
[2021-07-29] MEDS: LORazepam 0.5 MG TABLET PO (20:41)
[2021-07-29] MEDS: Lactulose 20 GM/30 ML SOLUTION 10 GM PO (20:41)
[2021-07-29] MEDS: Insulin Glargine,Hum.rec.anlog 100 UNIT/ML 10 ML VIAL 50 UNIT SUBCUT (20:49)
[2021-07-29] MEDS: Acetaminophen 325 MG TABLET 650 MG PO (23:24)
[2021-07-30 03:38] VITALS: BP 106/56; PULSE 69; TEMP 36.6; O2SAT 97
--- NOTE | 2021-07-30 05:40 | PC.NURSE ---
VS remained stable throughout night. Tele, SR. Pt received Tylenol for headache last night with good effect. Pt with frequent stool do to Lactulose. No issues reported this am.Plan:D/C home today.
[2021-07-30] MEDS: Levothyroxine Sodium 112 MCG TABLET PO (05:46)
[2021-07-30] MEDS: Omeprazole 40 MG CAPSULE.DR PO (05:46)
[2021-07-30] MEDS: Levothyroxine Sodium 25 MCG TABLET PO (05:46)
[2021-07-30 06:44] LABS: Hemoglobin 10.9 g/dl (12.0-16.0)
[2021-07-30 07:25] VITALS: BP 107/59; PULSE 65; RESP 15; TEMP 36.5; O2SAT 99
[2021-07-30 07:53] LABS: Glucose, Whole Blood 143 mg/dL (60-115)
[2021-07-30] MEDS: Lactulose 20 GM/30 ML SOLUTION 10 GM PO (07:58)
[2021-07-30 07:59] VITALS: BP 107/59; PULSE 82
[2021-07-30] MEDS: 0.9 % Sodium Chloride Flush 3 ML SYRINGE IVFLUSH (07:59)
[2021-07-30] MEDS: Metoprolol Succinate ER 25 MG TAB.ER.24H PO (07:59)
[2021-07-30] MEDS: rifAXIMin 550 MG TABLET PO (07:59)
[2021-07-30] MEDS: Cholecalciferol (Vitamin D3) 25 MCG TABLET 100 MCG PO (07:59)
[2021-07-30] MEDS: Apixaban 5 MG TABLET 10 MG PO (08:00)
[2021-07-30] MEDS: metFORMIN HCl 500 MG TABLET PO (08:00)
[2021-07-30] MEDS: Magnesium Oxide 400 MG TABLET 800 MG PO (08:00)
[2021-07-30] MEDS: Spironolactone 25 MG TABLET 100 MG PO (08:00)
[2021-07-30] MEDS: Furosemide 20 MG TABLET PO (08:00)
[2021-07-30] MEDS: Ferrous Sulfate 324 MG TABLET.DR PO (10:12)
[2021-07-30 11:36] VITALS: BP 99/61; PULSE 71; RESP 15; TEMP 36.9; O2SAT 99
--- NOTE | 2021-07-30 12:08 | PM.DS ---
DS: Providers Provider Date of Service: 07/30/21 Date of admission: 07/27/21 16:06 Primary care physician: Tony Toure MD Consults: 07/27/21 16:05 Consult to Gastroenterology Routine Consulting Provider: Dallas Jack Reason for consultation: cirrhosis, portal vein thrombosus with splenic infarcts 07/27/21 16:48 Consult to Gastroenterology Routine Consulting Provider: Dallas Jack Reason for consultation: abdominal pain Has provider been notified: Yes DS: Diagnosis Discharge Diagnosis (1) Portal vein thrombosis: Status: Acute (2) Abdominal pain: Status: Acute (3) Infarction of spleen: Status: Acute (4) Type 2 diabetes mellitus: Status: Acute DS: Summary Hospital Course Hospital Course: Chief Complaint: abd pain 61F presented wiht 2 weeks of progressing left upper quadrant abdominal pain.? Patient has a history of cirrhosis due to nonalcoholic steatohepatitis she is on wait list for liver transplant at [email or web address] (currently not taking transfers).? She also has history of portal vein thrombosis in 2019, and history of paroxysmal atrial fibrillation.? She had her Eliquis discontinued due to iron deficiency anemia.? Patient states that her abdominal pain has been progressing, is intermittent, occasionally severe, nonradiating, stabbing in nature.? In ED CT abdomen showed portal vein thrombosis and splenic infarcts.? Patient denies chest pain, shortness of breath, fever, chills. 61F with be cirrhosis and portal vein thrombosus presented with abdominal pain, found to have splenic infarcts and portal vein thrombosis, patient treated with IV heparin for 48 hours noted to have no active bleeding hematocrit remains stable, patient was considered high risk for bleed due to history of cirrhosis and intra-abdominal varices, serial CBCs remains stable therefore patient transition to by mouth Eliquis and now being discharged home on Eliquis 10 mg twice daily for 6 days followed by Eliquis 5 mg b.i.d. and has been recommended to have close outpatient follow-up with Dr. Jack from Gastroenterology and with [facility] [[email or web address]], patient has been continued on lactulose rifaximin and diuretics. In regard to chronic medical issues including paroxysmal atrial fibrillation, hypothyroidism, diabetes she has been continued on flores home medication. Time Spent with Patient Time attestation: Total time spent providing and/or coordinating discharge services: Discharge coordination time: Greater than 30 minutes Quality: Stroke Does the patient have a stroke diagnosis?: No Physical Exam Vital Signs: Vital Signs: Last Vital Signs Temp 98.5 F 07/30/21 11:36 Pulse 71 07/30/21 11:36 Resp 15 07/30/21 11:36 BP 99/61 07/30/21 11:36 Pulse Ox 99 07/30/21 11:36 Body Mass Index 32.7 General:Awake alert x3, no acute distress Neck: normal?,no jvd CVS: S1,S2, RRR Resp: CTA bilateral GI: soft, non tender, non distended, bowel sounds audible : no CVA tenderness Skin:?no rashes Extremities: no edema Neuro: Oriented X3, grossly intact Psych:? Appropriate insight DS: Data Data Completed and Pending Labs on day of discharge: Laboratory Results - last 24 hr 07/29/21 07/29/21 07/29/21 13:20 16:10 20:37 Hgb Hct PTT (Heparin Protocol) 52.4 L D POC Glucose 234 H 211 H 07/30/21 07/30/21 05:43 07:15 Hgb 10.9 L Hct 32.0 L PTT (Heparin Protocol) POC Glucose 143 H Discharge Plan Discharge Patient Disposition: Home, Self-Care Discharge Diagnosis: Portal vein thrombosis And splenic infarction Referrals: Tony Toure MD [Primary Care Provider] - 1 Week Discharge Medications: New Eliquis 5 mg Tablet 10 mg PO BID Qty: 90 RF: 0 Continued magnesium oxide 400 mg (241.3 mg magnesium) tablet 800 mg PO TID Qty: 540 RF: 3 ferrous sulfate 325 mg (65 mg iron) tablet 325 mg PO BID Qty: 180 RF: 1 furosemide 20 mg tablet 20 mg PO DAILY 30 Days Qty: 30 RF: 0 spironolactone 100 mg tablet 100 mg PO DAILY 30 Days Qty: 30 RF: 0 insulin lispro [Humalog KwikPen Insulin] 100 unit/mL insulin pen See Protocol sliding scale dose subcut TIDAC RF: 0 acetaminophen 325 mg Tablet 650 mg PO Q4H PRN (Reason: Pain) RF: 0 metoprolol succinate 25 mg tablet extended release 24 hr 25 mg PO DAILY RF: 0 omeprazole 40 mg capsule,delayed release(DR/EC) 40 mg PO DAILY RF: 0 insulin glargine 100 unit/mL (3 mL) insulin pen 50 unit subcut BEDTIME RF: 0 lactulose 10 gram/15 mL solution 15 ml PO BID RF: 0 (DME) lancets 33 gauge misc See Rx Instructions ea Not Applicable TID Qty: 100 RF: 0 (DME) blood sugar diagnostic Strip See Rx Instructions ea Not Applicable TID Qty: 10 RF: 0 ondansetron HCl 4 mg tablet 4 mg PO Q6H PRN (Reason: nausea/vomiting) RF: 0 cyclosporine 0.05 % dropperette 1 drp ophthalmic (eye) BEDTIME RF: 0 clotrimazole-betamethasone 1-0.05 % cream 1 applic topical BID PRN (Reason: Rash) RF: 0 fluticasone propionate 250 mcg/actuation blister with device 1 inh inhalation BEDTIME RF: 0 cholecalciferol (vitamin D3) 50 mcg (2,000 unit) capsule 100 mcg PO DAILY RF: 0 lorazepam 0.5 mg tablet 0.5 mg PO BEDTIME RF: 0 dulaglutide 1.5 mg/0.5 mL pen injector 3 mg subcut FR RF: 0 rifaximin 550 mg tablet 550 mg PO BID RF: 0 lovastatin 40 mg tablet 40 mg PO BEDTIME RF: 0 levothyroxine 137 mcg tablet 137 mcg PO MOTUWETHFR RF: 0 metformin 500 mg tablet 500 mg PO DAILY RF: 0 Discharge Orders: Discharge Order (Routine); Ordered 07/30/21 Ordered By: Ericka Veronica Diet: diabetic diet Activity on Discharge: As tolerated Stand Alone Forms: Patient Portal Discharge page Care Plan Goals: In regard to splenic infarction take Eliquis as prescribed. Health Concerns: Take all medications as previously prescribed. Plan of Treatment: Outpatient follow-up with primary care physician in next 7-10 days outpatient follow-up with Dr. Jack and Katerin as previously planned. Assessment: As above
[2021-07-30 12:14] LABS: Glucose, Whole Blood 189 mg/dL (60-115)
--- NOTE | 2021-07-30 13:11 | MHC.CM.PN ---
Female 61 DX Portal vein thrombosis. She has been provided an [employer] coupon. She received detailed instructions for use at her pharmacy. She verbalized understanding of the information provided. She is discharged to home today. No services have been ordered. The patient has arranged for transportation to home.
== END 2021-07-30 13:27 | disposition home or self-care (01) | DRG 442 ==
LOC: HO.ED 15:06 → HO.EDOVER 16:15 → HO.IMC 17:50
PROVIDERS: Internal Medicine; Internal Medicine Gastroenterology; Admitting Provider Internal Medicine; Emergency Provider Emergency Medicine; PCP Internal Medicine; Visit Provider Hospitalist
DX: I81 Portal vein thrombosis (principal); R18.8 Other ascites; N28.0 Ischemia and infarction of kidney; E87.1 Hypo-osmolality and hyponatremia; K74.60 Unspecified cirrhosis of liver; I48.0 Paroxysmal atrial fibrillation; K75.81 Nonalcoholic steatohepatitis (NASH); E03.9 Hypothyroidism, unspecified; E11.9 Type 2 diabetes mellitus without complications; K21.9 Gastro-esophageal reflux disease without esophagitis; Z20.822 Contact with and (suspected) exposure to COVID-19; Z79.01 Long term (current) use of anticoagulants; Z88.0 Allergy status to penicillin; Z79.4 Long term (current) use of insulin; Z88.5 Allergy status to narcotic agent; Z79.51 Long term (current) use of inhaled steroids; Z79.899 Other long term (current) drug therapy
CPT/HCPCS: 36415; 74177; 80048; 80076; 81003; 82105; 82140; 82803; 82947; 83690; 83735; 85014; 85018; 85025; 85027; 85610; 85730; 86850; 86900; 86901; 87635; 93005; 93975; 96374; 96375; 99285; 99291; Q9967

== ENCOUNTER 2021-08-09 13:41 | Outpatient (REF) | payer MEDICARE, OTHER, SELFPAY ==
[2021-08-09 14:29] LABS: MANUAL DIFF FLAG NO
[2021-08-09 14:36] LABS: Basophils Absolute Auto 0.1 X10*3/uL (0.0-0.2); Eosinophils Absolute Auto 0.3 X10*3/uL (0.0-0.4); Eosinophils Percent Auto 4.7 % (0-4); Hematocrit 33.8 % (37.0-47.0); Hemoglobin 11.7 g/dl (12.0-16.0); Imm Gran Abs Auto 0.02 X10*3/uL (0.00-0.03); Imm Gran Pct Auto 0.3 % (0.0-0.4); Lymphocytes Absolute Auto 1.3 X10*3/uL (1.2-4.9); Lymphocytes Percent Auto 18.5 % (20-40); Mean Corpuscular HGB Conc 34.6 g/dl (31.0-35.0); Mean Corpuscular Hemoglobin 31.9 pg (27.0-33.0); Mean Corpuscular Volume 92.1 fL (80.0-98.0); Mean Platelet Volume 9.9 fL (9.4-12.3); Monocytes Absolute Auto 0.8 X10*3/uL (0.1-1.2); Monocytes Percent Auto 11.4 % (2-11); Neutrophils Absolute Auto 4.5 x10*3/uL (2.0-8.3); Neutrophils Percent Auto 64.1 % (45-73); Platelet Count 141 X10*3/uL (160-400); Red Blood Count 3.67 X10*6/uL (4.20-5.50); Red Cell Distribution Width 14.6 % (11.0-16.0)
[2021-08-09 14:43] LABS: INTERNATIONAL NORM RATIO 1.4 (0.9-1.1); Prothrombin Time 16.1 SEC (9.9-13.0)
[2021-08-09 15:07] LABS: Alanine Aminotransferase 15 U/L (0-31); Albumin Level 3.2 g/dL (3.5-5.0); Alkaline Phosphatase 94 U/L (39-117); Anion Gap 11 (12-20); Aspartate Amino Transferase 27 U/L (5-31); Bilirubin Total 2.1 mg/dL (0.0-1.0); Blood Urea Nitrogen 15 mg/dL (9-16); Calcium 9.6 mg/dL (8.4-10.2); Carbon Dioxide 29 mmol/L (22-29); Chloride 97 mmol/L (96-108); Estimated Glomerular Filt Rate 31; Glucose Random 387 mg/dL (60-115); Potassium 4.3 mmol/L (3.3-5.1); Sodium 133 mmol/L (135-145); Total Protein 6.9 g/dL (6.5-8.0)
== END 2021-08-09 13:42 | disposition home or self-care (01) ==
LOC: HO.HMGCLDS 13:41
PROVIDERS: PCP Internal Medicine; Visit Provider Internal Medicine Gastroenterology
DX: K75.81 Nonalcoholic steatohepatitis (NASH) (principal); K74.60 Unspecified cirrhosis of liver
CPT/HCPCS: 36415; 80053; 85025; 85610

== ENCOUNTER 2021-09-30 12:49 | Inpatient (IN) | payer MEDICARE, SELFPAY ==
--- NOTE | ~2021-09-30 | XR_ITS ---
EXAMINATION: XR CHEST CLINICAL INFORMATION: AMS COMPARISON: Chest 12/24/2020 TECHNIQUE: Frontal view of the chest was obtained. FINDINGS: The lungs are hypoexpanded but clear of acute process. The heart size and pulmonary vascularity is normal. No gross bony abnormality seen. XR/XR chest 1V IMPRESSION: Unremarkable chest exam.
[2021-09-30 13:02] VITALS: BP 121/47; PULSE 69; RESP 16; O2SAT 100; BMI 38.9
--- NOTE | 2021-09-30 13:05 | ECG_ITS ---
Test Reason : GENERAL MEDICAL Blood Pressure : / mmHG Vent. Rate : 071 BPM Atrial Rate : 000 BPM P-R Int : 000 ms QRS Dur : 102 ms QT Int : 404 ms P-R-T Axes : 000 -55 014 degrees QTc Int : 439 ms Normal sinus rhythm Left anterior fascicular block Minimal voltage criteria for LVH, may be normal variant ( [employer] product ) Abnormal ECG When compared with ECG of 27-JUL-2021 15:03, T wave inversion no longer evident in Lateral leads Referred By: Wyatt Gonzales Electronically Signed By:SAMMY ARROYO MD
[2021-09-30] MEDS: 0.9 % Sodium Chloride 1,000 ML 999 ML IV (13:18)
[2021-09-30 14:00] VITALS: BP 118/72; PULSE 76; RESP 10; O2SAT 100
[2021-09-30 14:14] LABS: Imm Gran Abs Auto 0.02 X10*3/uL (0.00-0.03); Imm Gran Pct Auto 0.3 % (0.0-0.4); PLT CLUMP 1; SCAN SMEAR FLAG 1
[2021-09-30 14:15] LABS: Basophils Percent Auto 0.6 % (0-2); Eosinophils Absolute Auto 0.1 X10*3/uL (0.0-0.4); Eosinophils Percent Auto 1.7 % (0-4); Hemoglobin 12.8 g/dl (12.0-16.0); Lymphocytes Absolute Auto 0.9 X10*3/uL (1.2-4.9); Lymphocytes Percent Auto 12.6 % (20-40); Mean Corpuscular HGB Conc 34.6 g/dl (31.0-35.0); Mean Corpuscular Hemoglobin 31.8 pg (27.0-33.0); Mean Corpuscular Volume 91.8 fL (80.0-98.0); Mean Platelet Volume 10.3 fL (9.4-12.3); Monocytes Absolute Auto 0.7 X10*3/uL (0.1-1.2); Monocytes Percent Auto 9.2 % (2-11); Neutrophils Absolute Auto 5.4 x10*3/uL (2.0-8.3); Neutrophils Percent Auto 75.6 % (45-73); Red Blood Count 4.03 X10*6/uL (4.20-5.50); Red Cell Distribution Width 14.3 % (11.0-16.0)
[2021-09-30 14:21] LABS: Ammonia 57 umol/L (13-55); INTERNATIONAL NORM RATIO 1.1 (0.9-1.1)
[2021-09-30 14:24] LABS: Partial Thromboplastin Time 31.2 SEC (24.1-38.0)
[2021-09-30 14:27] LABS: Alanine Aminotransferase 21 U/L (0-31); Albumin Level 3.2 g/dL (3.5-5.0); Alkaline Phosphatase 99 U/L (39-117); Anion Gap 15 (12-20); Aspartate Amino Transferase 35 U/L (5-31); Bilirubin Total 2.3 mg/dL (0.0-1.0); Blood Urea Nitrogen 18 mg/dL (9-16); Calcium 10.1 mg/dL (8.4-10.2); Carbon Dioxide 21 mmol/L (22-29); Chloride 103 mmol/L (96-108); Estimated Glomerular Filt Rate 33; Glucose Random 169 mg/dL (60-115); Lipase 29 U/L (8-78); Magnesium 2.1 mg/dL (1.6-2.6); Potassium 5.4 mmol/L (3.3-5.1); Sodium 134 mmol/L (135-145)
[2021-09-30 14:30] LABS: White Blood Count 7.4 X10*3/uL (4.8-10.8)
[2021-09-30 14:31] LABS: MANUAL DIFF FLAG NO; Platelet Count 115 X10*3/uL (160-400)
[2021-09-30 14:38] LABS: COVID-19 Test Negative (Negative); IDNOW Serial# 08D9AD1C
--- NOTE | 2021-09-30 14:38 | ED.AMS ---
HPI - Altered Mental Status General Chief Complaint: Altered Mental Status Stated Complaint: AMS,? ABNORMAL LABS, ON TRANSPLANT LIST Time Seen by Provider: 09/30/21 12:52 Source: patient and EMS Mode of arrival: EMS Limitations: altered mental status History of Present Illness HPI narrative: Patient is 61 years old with history of hypertension, hyperlipidemia, atrial fibrillation, diabetes, thyroid disease, asthma ,obesity with ESLD due to CHIN with portal hypertension, splenomegaly , esophageal varices status post band ligation listed for transplant list at [facility] came from home for increased confusion. Patient is on lactulose 20 g twice daily also taking Dilaudid IV push every 4 hours as needed. No nausea no vomiting no head injury or fall no rectal bleeding, no fever according to patient's patient missed Lactulose for last 3- 4 days and usually she is alert orient x3 Related Data Home Medications Medication Instructions Recorded Confirmed clotrimazole-betamethasone 1 1 applic TOPICAL BID PRN 07/02/20 09/30/21 %-0.05 % topical cream cyclosporine 0.05 % eye drops in a 1 drp OPHTHALMIC (EYE) BEDTIME 07/02/20 09/30/21 dropperette fluticasone propionate 250 1 inh INHALATION BEDTIME 07/02/20 09/30/21 mcg/actuation blister powder for inhalation insulin glargine 100 unit/mL (3 50 unit SUBCUT BEDTIME 07/02/20 09/30/21 mL) subcutaneous pen lactulose 10 gram/15 mL oral 15 ml PO BID 07/02/20 09/30/21 solution lorazepam 0.5 mg tablet 0.5 mg PO BEDTIME 07/02/20 09/30/21 ondansetron HCl 4 mg tablet 4 mg PO Q6H PRN 07/02/20 09/30/21 levothyroxine 137 mcg tablet 137 mcg PO MOTUWETHFR 08/19/20 09/30/21 lovastatin 40 mg tablet 40 mg PO BEDTIME 08/19/20 09/30/21 metformin 500 mg tablet 500 mg PO DAILY tab 11/10/20 09/30/21 metoprolol succinate 25 mg 25 mg PO DAILY 01/01/21 09/30/21 tablet,extended release 24 hr dulaglutide 1.5 mg/0.5 mL 3 mg SUBCUT FR ml 06/24/21 09/30/21 subcutaneous pen injector omeprazole 40 mg capsule,delayed 40 mg PO DAILY cap 06/24/21 07/27/21 release rifaximin 550 mg tablet 550 mg PO BID 06/24/21 09/30/21 acetaminophen 325 mg tablet 650 mg PO Q4H PRN 07/27/21 09/30/21 insulin lispro 100 unit/mL See Protocol SUBCUT TIDAC 07/27/21 09/30/21 subcutaneous pen (Humalog KwikPen (U-100) Insulin) apixaban 5 mg tablet (Eliquis) 5 mg PO BID 09/30/21 09/30/21 cholecalciferol (vitamin D3) 25 1 cap PO DAILY 09/30/21 09/30/21 mcg (1,000 unit) capsule (Vitamin D3) Previous Rx's Medication Instructions Recorded magnesium oxide 400 mg (241.3 mg 800 mg PO TID #540 tab 01/25/21 magnesium) tablet ferrous sulfate 325 mg (65 mg 325 mg PO BID #180 tab 04/30/21 iron) tablet furosemide 20 mg tablet 20 mg PO DAILY 30 Days #30 tab 07/02/21 spironolactone 100 mg tablet 100 mg PO DAILY 30 Days #30 tab 09/29/21 Allergies Allergy/AdvReac Type Severity Reaction Status Date / Time metoclopramide [From REGLAN] Allergy Unknown SWELLING Verified 05/20/21 14:28 penicillin V Allergy Unknown Unknown Verified 05/20/21 14:28 tramadol [TRAMADOL] Allergy Unknown SWELLING Verified 05/20/21 14:28 From AUGMENTIN Allergy Mild COUGHING, Uncoded 06/11/20 15:44 LOW BP\ Review of Systems Review of Systems: Yes Unobtainable due to mental status [facility] Past Medical History Medical History (Updated 09/30/21 @ 21:17 by Wyatt Gonzales MD) Asthma Cirrhosis of liver with ascites Esophageal varices without bleeding GERD (gastroesophageal reflux disease) History of colonic polyps Hyperlipidemia Hypertension Iron deficiency anemia Obesity (BMI 35.0-39.9 without comorbidity) PAC (premature atrial contraction) Paroxysmal atrial fibrillation Portal hypertension Shingles Thyroid disease Type 2 diabetes mellitus Surgical History History of partial hysterectomy (~1998) Hx of colonoscopy Hx of endoscopy Status post surgical removal of pilonidal cyst (~1979) Family History Family History Father No problems noted. Mother No problems noted. Paternal Grandmother Colon cancer Social History Social History Household Members: Spouse Housing: House Alcohol intake: never Patient Tobacco Use Status: Never used Tobacco Advance Directives: No Advance Directives Information Provided: Yes service: No Current occupational status: disabled Physical Exam Vital Signs: Vital Signs: Last Vital Signs Temp 97.6 F 09/30/21 20:35 Pulse 81 09/30/21 20:35 Resp 18 09/30/21 20:35 BP 155/67 H 09/30/21 20:35 Pulse Ox 99 09/30/21 20:35 BMI result Body Mass Index 38.9 Appearance: Alert. Oriented X1 No acute distress. Eyes: PERRLA, No Nystagmus, icterus+ ENT: Pharynx normal. Oral Mucosa moist Neck: Normal inspection. Neck supple. CVS: Normal heart rate and rhythm. Pulses normal. Respiratory: No respiratory distress. Equal air entry bilateral, no wheezing/rales/rhonchi Abdomen: Soft and nontender. Bowel sounds are present, no mass palpable, no CVA tenderness Skin: Skin warm and dry. Normal skin color. Normal skin turgor. Extremities: No lower extremity edema. No calf tenderness Neuro: Oriented X 1. No motor deficit. No sensory deficit.No cerebellar signs , cranial nerves II-XII intact hepatic flaps++ MDM - Altered Mental Status MDM Narrative Medical decision making narrative: Patient has significant altered mental status alert oriented only x1 ammonia level is slightly elevated to 57 but patient is definitely more confused with hepatic flaps. Will admit patient for hepatic encephalopathy for p.o. lactulose patient has chronic renal disease with no significant change in renal functions. Patient has nitrite positive in the urine but no other findings of UTI will hold onto antibiotic pending urine culture results Medical Records Attestation: I reviewed the patient's medical records. Lab Data Attestation: I reviewed the patient's lab results. Result diagrams: 09/30/21 14:03 09/30/21 14:03 Labs: Lab Results 09/30/21 09/30/21 09/30/21 Range/Units 14:03 14:03 14:03 WBC 7.4 (4.8-10.8) X10*3/uL RBC 4.03 L (4.20-5.50) X10*6/uL Hgb 12.8 (12.0-16.0) g/dl Hct 37.0 (37.0-47.0) % MCV 91.8 (80.0-98.0) fL MCH 31.8 (27.0-33.0) pg MCHC 34.6 (31.0-35.0) g/dl RDW 14.3 (11.0-16.0) % Plt Count 115 L (160-400) X10*3/uL MPV 10.3 (9.4-12.3) fL Immature Gran % (Auto) 0.3 (0.0-0.4) % Neut % (Auto) 75.6 H (45-73) % Lymph % (Auto) 12.6 L (20-40) % [place] % (Auto) 9.2 (2-11) % Eos % (Auto) 1.7 (0-4) % Baso % (Auto) 0.6 (0-2) % Lymph # (Auto) 0.9 L (1.2-4.9) X10*3/uL [place] # (Auto) 0.7 (0.1-1.2) X10*3/uL Eos # (Auto) 0.1 (0.0-0.4) X10*3/uL Baso # (Auto) 0.0 (0.0-0.2) X10*3/uL Abs Immat Gran (auto) 0.02 (0.00-0.03) X10*3/uL Absolute Neuts (auto) 5.4 (2.0-8.3) x10*3/uL Absolute Nucleated RBC 0.000 (0.0-0.012) X10*3/uL Nucleated RBC % (auto) 0.0 (0.0-0.2) /100WBC PT 12.0 (9.9-13.0) SEC INR 1.1 (0.9-1.1) APTT 31.2 (24.1-38.0) SEC Sodium (135-145) mmol/L Potassium (3.3-5.1) mmol/L Chloride (96-108) mmol/L Carbon Dioxide (22-29) mmol/L Anion Gap (12-20) BUN (9-16) mg/dL Creatinine (0.5-1.4) mg/dL Estim Creat Clear Calc Estimated GFR Random Glucose (60-115) mg/dL Calcium (8.4-10.2) mg/dL Magnesium (1.6-2.6) mg/dL Total Bilirubin (0.0-1.0) mg/dL AST (5-31) U/L ALT (0-31) U/L Alkaline Phosphatase (39-117) U/L Ammonia 57 H (13-55) umol/L Total Protein (6.5-8.0) g/dL Albumin (3.5-5.0) g/dL Lipase (8-78) U/L Urine Color Urine Appearance Urine pH (5.0-8.0) Ur Specific [place] (1.005-1.025) Urine Protein (NEG-TRACE) MG/DL Urine Glucose (UA) (NEG) MG/DL Urine Ketones (NEG) MG/DL Urine Blood (NEG) Urine Nitrite (NEG) Ur Leukocyte Esterase (NEG) Urine RBC (0) /HPF Urine WBC (0-4) /HPF Ur Squamous Epith Cells /LPF Urine Bacteria /LPF COVID-19 (MARKIE) (Negative) COVID-19 Clin Com 09/30/21 09/30/21 09/30/21 Range/Units 14:03 14:03 16:29 WBC (4.8-10.8) X10*3/uL RBC (4.20-5.50) X10*6/uL Hgb (12.0-16.0) g/dl Hct (37.0-47.0) % MCV (80.0-98.0) fL MCH (27.0-33.0) pg MCHC (31.0-35.0) g/dl RDW (11.0-16.0) % Plt Count (160-400) X10*3/uL MPV (9.4-12.3) fL Immature Gran % (Auto) (0.0-0.4) % Neut % (Auto) (45-73) % Lymph % (Auto) (20-40) % [place] % (Auto) (2-11) % Eos % (Auto) (0-4) % Baso % (Auto) (0-2) % Lymph # (Auto) (1.2-4.9) X10*3/uL [place] # (Auto) (0.1-1.2) X10*3/uL Eos # (Auto) (0.0-0.4) X10*3/uL Baso # (Auto) (0.0-0.2) X10*3/uL Abs Immat Gran (auto) (0.00-0.03) X10*3/uL Absolute Neuts (auto) (2.0-8.3) x10*3/uL Absolute Nucleated RBC (0.0-0.012) X10*3/uL Nucleated RBC % (auto) (0.0-0.2) /100WBC PT (9.9-13.0) SEC INR (0.9-1.1) APTT (24.1-38.0) SEC Sodium 134 L (135-145) mmol/L Potassium 5.4 H D (3.3-5.1) mmol/L Chloride 103 (96-108) mmol/L Carbon Dioxide 21 L (22-29) mmol/L Anion Gap 15 (12-20) BUN 18 H (9-16) mg/dL Creatinine 1.60 H (0.5-1.4) mg/dL Estim Creat Clear Calc 41.0 Estimated GFR 33 Random Glucose 169 H (60-115) mg/dL Calcium 10.1 (8.4-10.2) mg/dL Magnesium 2.1 (1.6-2.6) mg/dL Total Bilirubin 2.3 H (0.0-1.0) mg/dL AST 35 H (5-31) U/L ALT 21 (0-31) U/L Alkaline Phosphatase 99 (39-117) U/L Ammonia (13-55) umol/L Total Protein 7.0 (6.5-8.0) g/dL Albumin 3.2 L (3.5-5.0) g/dL Lipase 29 (8-78) U/L Urine Color YELLOW Urine Appearance CLEAR Urine pH 8.0 (5.0-8.0) Ur Specific [place] 1.015 (1.005-1.025) Urine Protein NEG (NEG-TRACE) MG/DL Urine Glucose (UA) NEG (NEG) MG/DL Urine Ketones NEG (NEG) MG/DL Urine Blood NEG (NEG) Urine Nitrite POS H (NEG) Ur Leukocyte Esterase NEG (NEG) Urine RBC 1-4 (0) /HPF Urine WBC 1-4 (0-4) /HPF Ur Squamous Epith Cells TRACE /LPF Urine Bacteria 3+ /LPF COVID-19 (MARKIE) Negative (Negative) COVID-19 Clin Com See Note Discharge Plan Discharge Clinical Impression: Hepatic encephalopathy Patient Disposition: Admitted As Inpatient Interventions: Admission Worksheet (ED) Last Done: 09/30/21 20:45
[2021-09-30] MEDS: Lactulose 20 GM/30 ML SOLUTION 30 GM PO (15:05)
[2021-09-30 16:53] LABS: Appearance Urine CLEAR; Color Urine YELLOW; Glucose Urine UA NEG (NEG); Leukocyte Esterase Urine NEG (NEG); Nitrite Urine POS (NEG); Specific Gravity - Urine 1.015 (1.005-1.025); UACC Culture Trigger YES; Urine Blood NEG (NEG); Urine Ketones NEG (NEG); Urine Protein NEG (NEG-TRACE)
--- NOTE | 2021-09-30 16:58 | PHA.MEDREC ---
Pharmacy Consult ? Medication Reconciliation Pharmacy has completed the medication reconciliation. Med Rec completed based on current outpatient pharmacy fill history and recent admission due to patients AMS.
[2021-09-30 17:05] LABS: Bacteria Urine 3+ /LPF; Squamous Epithelial Cell Urine TRACE /LPF
--- NOTE | 2021-09-30 17:22 | PM.IMHP ---
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 Discussed with who states 3 days ago she had an appointment in [place] with transplant team; was told to stop lactulose for trip. states she likely for got the next dose and then that perpetuated the issue. In the emergency room her ammonia levels found to be 57 which is an increase from the last level of 19. She is pleasantly confused but easily reoriented. She will be admitted for correction of ammonia low Review of Systems Review of Systems: Denies chest pain Denies nausea vomiting diarrhea Denies shortness of breath [facility] Medical History (Updated 09/30/21 @ 17:29 by Marky Arias DO) Asthma Cirrhosis of liver with ascites Esophageal varices without bleeding GERD (gastroesophageal reflux disease) History of colonic polyps Hyperlipidemia Hypertension Iron deficiency anemia Obesity (BMI 35.0-39.9 without comorbidity) PAC (premature atrial contraction) Paroxysmal atrial fibrillation Portal hypertension Shingles Thyroid disease Type 2 diabetes mellitus Family History Father No problems noted. Mother No problems noted. Paternal Grandmother Colon cancer Surgical History History of partial hysterectomy (~1998) Hx of colonoscopy Hx of endoscopy Status post surgical removal of pilonidal cyst (~1979) Social History Household Members: Spouse Housing: House Alcohol intake: never Patient Tobacco Use Status: Never used Tobacco Advance Directives: No Advance Directives Information Provided: Yes service: No Current occupational status: disabled Meds Allergies Allergy/AdvReac Type Severity Reaction Status Date / Time metoclopramide [From REGLAN] Allergy Unknown SWELLING Verified 05/20/21 14:28 penicillin V Allergy Unknown Unknown Verified 05/20/21 14:28 tramadol [TRAMADOL] Allergy Unknown SWELLING Verified 05/20/21 14:28 From AUGMENTIN Allergy Mild COUGHING, Uncoded 06/11/20 15:44 LOW BP\ Active Medications: Current Medications Apixaban (Apixaban 5 Mg Tablet) 5 mg PO BID KAVON Fluticasone Propionate (Fluticasone Propionate 250 Mcg Blst.W.Dev) 1 puff INHALE BEDTIME KAVON Furosemide (Furosemide 20 Mg Tablet) 20 mg PO DAILY KAVON; Protocol Insulin Glargine (Insulin Glargine,Hum.Rec.Anlog 100 Unit/Ml 10 Ml Vial) 50 unit SUBCUT BEDTIME KAVON Insulin Human Lispro (Insulin Lispro 100 Unit/Ml 3 Ml Vial) unit SUBCUT TIDAC KAVON; Protocol Lactulose (Lactulose 20 Gm/30 Ml Solution) 30 gm PO TID KAOVN Lorazepam (Lorazepam 0.5 Mg Tablet) 0.5 mg PO BEDTIME KAVON Magnesium Oxide (Magnesium Oxide 400 Mg Tablet) 800 mg PO TID KAVON Metformin HCl (Metformin Hcl 500 Mg Tablet) 500 mg PO DAILY KAVON Metoprolol Succinate (Metoprolol Succinate Er 25 Mg Tab.Er.24h) 25 mg PO DAILY KAVON; Protocol Non-Formulary Medication (Clotrimazole-Betamethasone) 1 appl TOPICAL BID PRN PRN Reason: Rash Non-Formulary Medication (Cyclosporine) 1 drop EYE-BOTH BEDTIME KAVON Non-Formulary Medication (Dulaglutide) 3 mg SUBCUT FR KAVON Non-Formulary Medication (Ferrous Sulfate) 325 mg PO BID KAVON Non-Formulary Medication (Levothyroxine) 137 mcg PO MOTUWETHFR KAVON Non-Formulary Medication (Lovastatin) 40 mg PO BEDTIME KAVON Ondansetron HCl (Ondansetron Odt 4 Mg Tab.Rapdis) 4 mg TRANSLINGU Q6H PRN PRN Reason: nausea/vomiting Pharmacy Consult (Consult Rx Perform Med Rec) 1 each MISCELLANE ONCE PRN PRN Reason: Consult order Rifaximin (Rifaximin 550 Mg Tablet) 550 mg PO BID [facility] Sodium Chloride (0.9 % Sodium Chloride Flush 3 Ml Syringe) 3 ml IVFLUSH QSHIFT KAVON Spironolactone (Spironolactone 25 Mg Tablet) 100 mg PO DAILY KAVON; Protocol Vitamin D (Cholecalciferol (Vitamin D3) 25 Mcg Tablet) 25 mcg PO DAILY [facility] Home Medications Medication Instructions Recorded Confirmed Last Taken Type clotrimazole-betamethasone 1 1 applic TOPICAL BID PRN 07/02/20 09/30/21 Unknown History %-0.05 % topical cream cyclosporine 0.05 % eye drops in a 1 drp OPHTHALMIC (EYE) BEDTIME 1009/30/21 07/26/21 History dropperette fluticasone propionate 250 1 inh INHALATION BEDTIME 07/02/20 09/30/21 Unknown History mcg/actuation blister powder for inhalation insulin glargine 100 unit/mL (3 50 unit SUBCUT BEDTIME 07/02/20 09/30/21 07/26/21 History mL) subcutaneous pen lactulose 10 gram/15 mL oral 15 ml PO BID 07/02/20 09/30/21 07/26/21 History solution lorazepam 0.5 mg tablet 0.5 mg PO BEDTIME 07/02/20 09/30/21 07/26/21 History ondansetron HCl 4 mg tablet 4 mg PO Q6H PRN 07/02/20 09/30/21 Unknown History levothyroxine 137 mcg tablet 137 mcg PO MOTUWETHFR 08/19/20 09/30/21 07/27/21 History lovastatin 40 mg tablet 40 mg PO BEDTIME 08/19/20 09/30/21 07/26/21 History metformin 500 mg tablet 500 mg PO DAILY tab 11/10/20 09/30/21 07/27/21 History metoprolol succinate 25 mg 25 mg PO DAILY 01/01/21 09/30/21 07/27/21 History tablet,extended release 24 hr dulaglutide 1.5 mg/0.5 mL 3 mg SUBCUT FR ml 06/24/21 09/30/21 07/23/21 History subcutaneous pen injector omeprazole 40 mg capsule,delayed 40 mg PO DAILY cap 06/24/21 07/27/21 07/27/21 History release rifaximin 550 mg tablet 550 mg PO BID 06/24/21 09/30/21 07/27/21 History acetaminophen 325 mg tablet 650 mg PO Q4H PRN 07/27/21 09/30/21 Unknown History insulin lispro 100 unit/mL See Protocol SUBCUT TIDAC 07/27/21 09/30/21 07/27/21 History subcutaneous pen (Humalog KwikPen (U-100) Insulin) apixaban 5 mg tablet (Eliquis) 5 mg PO BID 09/30/21 09/30/21 Unknown History cholecalciferol (vitamin D3) 25 1 cap PO DAILY 09/30/21 09/30/21 Unknown History mcg (1,000 unit) capsule (Vitamin D3) Physical Exam Vital Signs and Narrative: Vital Signs: Last Vital Signs Pulse 76 09/30/21 14:00 Resp 10 L 09/30/21 14:00 BP 118/72 09/30/21 14:00 Pulse Ox 100 09/30/21 14:00 BMI result Body Mass Index 38.9 Const: Other: Resting comfortably no acute distress. Pleasantly confused but easily reoriented Resp: Other: Clear to auscultation bilaterally. No rales rhonchi or wheezes Cardio: Other: No S4; positive S1-S2; no S3 murmurs rubs gallops GI: Other: Soft nontender nondistended with normoactive bowel sounds. There is no rebound or guarding appreciated Neuro: Other: Cranial nerves 2-12 grossly intact as tested. Motor is 5/5 all extremities. Sensation is intact. There is a bilateral asterixis of wrists Extrem: Other: No edema bilateral Results Labs CBC and Chem 7: 09/30/21 14:03 09/30/21 14:03 Labs: Laboratory Results - last 24 hr 09/30/21 09/30/21 09/30/21 14:03 14:03 14:03 MCV 91.8 MCH 31.8 MCHC 34.6 RDW 14.3 Plt Count 115 L MPV 10.3 Immature Gran % (Auto) 0.3 Neut % (Auto) 75.6 H Lymph % (Auto) 12.6 L [place] % (Auto) 9.2 Eos % (Auto) 1.7 Baso % (Auto) 0.6 Lymph # (Auto) 0.9 L [place] # (Auto) 0.7 Eos # (Auto) 0.1 Baso # (Auto) 0.0 Abs Immat Gran (auto) 0.02 Absolute Neuts (auto) 5.4 Absolute Nucleated RBC 0.000 Nucleated RBC % (auto) 0.0 PT 12.0 INR 1.1 APTT 31.2 Anion Gap Estim Creat Clear Calc Estimated GFR Random Glucose Calcium Magnesium Total Bilirubin AST ALT Alkaline Phosphatase Ammonia 57 H Total Protein Albumin Lipase Urine Color Urine Appearance Urine pH Ur Specific [place] Urine Protein Urine Glucose (UA) Urine Ketones Urine Blood Urine Nitrite Ur Leukocyte Esterase Urine RBC Urine WBC Ur Squamous Epith Cells Urine Bacteria COVID-19 (MARKIE) COVID-19 Clin Com 09/30/21 09/30/2109/30/22 14:03 14:03 16:29 MCV MCH MCHC RDW Plt Count MPV Immature Gran % (Auto) Neut % (Auto) Lymph % (Auto) [place] % (Auto) Eos % (Auto) Baso % (Auto) Lymph # (Auto) [place] # (Auto) Eos # (Auto) Baso # (Auto) Abs Immat Gran (auto) Absolute Neuts (auto) Absolute Nucleated RBC Nucleated RBC % (auto) PT INR APTT Anion Gap 15 Estim Creat Clear Calc 41.0 Estimated GFR 33 Random Glucose 169 H Calcium 10.1 Magnesium 2.1 Total Bilirubin 2.3 H AST 35 H ALT 21 Alkaline Phosphatase 99 Ammonia Total Protein 7.0 Albumin 3.2 L Lipase 29 Urine Color YELLOW Urine Appearance CLEAR Urine pH 8.0 Ur Specific [place] 1.015 Urine Protein NEG Urine Glucose (UA) NEG Urine Ketones NEG Urine Blood NEG Urine Nitrite POS H Ur Leukocyte Esterase NEG Urine RBC 1-4 Urine WBC 1-4 Ur Squamous Epith Cells TRACE Urine Bacteria 3+ COVID-19 (MARKIE) Negative COVID-19 Clin Com See Note Imaging Radiologist's Impressions: Impressions Chest X-Ray 09/30/21 13:35 IMPRESSION: Unremarkable chest exam. 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 Remaining workup is unremarkable. Patient is on the transplant list and has routine follow-up with [facility] 1. Hepatic encephalopathy Elevated ammonia level explainable by missed doses of lactulose Restart lactulose 30 mg t.i.d. and follow ammonia levels Remainder of workup unremarkable; can be discharged when mentation is back to baseline 2. Portal vein thrombosis Continue Eliquis as ordered 3. Diabetes type 2 requiring insulin Continue outpatient therapies and cover with sliding scale Adjust as indicated 4. Cirrhosis with history of ascites Continue Lasix and Aldactone as per outpatient dosing Full code [facility] Quality Stroke Does the patient have a stroke diagnosis?: No VTE Prior VTE?: Yes VTE Risk Level:: Medical - moderate - high VTE Device Contraindication: Treatment Not Indicated VTE Drug Contraindication: Treatment Not Indicated
[2021-09-30] MEDS: Sodium Chloride 0.45 % 1,000 ML 100 ML IVCONT ×2 (18:25→21:36)
[2021-09-30 19:10] LABS: Glucose, Whole Blood 161 mg/dL (60-115)
[2021-09-30 20:35] VITALS: BP 155/67; PULSE 81; RESP 18; TEMP 36.4; O2SAT 99
[2021-09-30 20:49] LABS: Glucose, Whole Blood 158 mg/dL (60-115)
[2021-09-30] MEDS: Insulin Lispro 100 UNIT/ML 3 ML VIAL SUBCUT (21:34)
[2021-09-30] MEDS: Insulin Glargine,Hum.rec.anlog 100 UNIT/ML 10 ML VIAL 50 UNIT SUBCUT (21:35)
[2021-09-30] MEDS: Magnesium Oxide 400 MG TABLET 800 MG PO (21:35)
[2021-09-30] MEDS: rifAXIMin 550 MG TABLET PO (21:35)
[2021-09-30] MEDS: Apixaban 5 MG TABLET PO (21:35)
[2021-09-30] MEDS: Pravastatin Sodium 40 MG TABLET PO (21:35)
[2021-09-30] MEDS: LORazepam 0.5 MG TABLET PO (21:35)
[2021-09-30] MEDS: Ferrous Sulfate 324 MG TABLET.DR PO (21:36)
[2021-10-01] VITALS: BP 134/63; PULSE 79; RESP 18; TEMP 36.3; O2SAT 99
[2021-10-01 03:33] VITALS: BP 110/58; PULSE 71; RESP 18; TEMP 36.4; O2SAT 98
[2021-10-01] MEDS: Levothyroxine Sodium 112 MCG TABLET PO (05:37)
[2021-10-01] MEDS: Levothyroxine Sodium 25 MCG TABLET PO (05:37)
[2021-10-01 06:18] LABS: MANUAL DIFF FLAG NO
[2021-10-01 06:24] LABS: Basophils Absolute Auto 0.1 X10*3/uL (0.0-0.2); Basophils Percent Auto 0.7 % (0-2); Eosinophils Absolute Auto 0.3 X10*3/uL (0.0-0.4); Eosinophils Percent Auto 4.3 % (0-4); Hematocrit 33.3 % (37.0-47.0); Hemoglobin 11.5 g/dl (12.0-16.0); Imm Gran Abs Auto 0.02 X10*3/uL (0.00-0.03); Imm Gran Pct Auto 0.3 % (0.0-0.4); Lymphocytes Percent Auto 29.7 % (20-40); Mean Corpuscular HGB Conc 34.5 g/dl (31.0-35.0); Mean Corpuscular Hemoglobin 31.3 pg (27.0-33.0); Mean Corpuscular Volume 90.5 fL (80.0-98.0); Mean Platelet Volume 10.4 fL (9.4-12.3); Monocytes Absolute Auto 0.8 X10*3/uL (0.1-1.2); Monocytes Percent Auto 11.6 % (2-11); Neutrophils Absolute Auto 3.6 x10*3/uL (2.0-8.3); Neutrophils Percent Auto 53.4 % (45-73); Platelet Count 130 X10*3/uL (160-400); Red Blood Count 3.68 X10*6/uL (4.20-5.50); Red Cell Distribution Width 14.3 % (11.0-16.0); White Blood Count 6.8 X10*3/uL (4.8-10.8)
[2021-10-01 07:29] LABS: Alanine Aminotransferase 15 U/L (0-31); Alkaline Phosphatase 90 U/L (39-117); Anion Gap 13 (12-20); Aspartate Amino Transferase 27 U/L (5-31); Bilirubin Total 2.6 mg/dL (0.0-1.0); Blood Urea Nitrogen 17 mg/dL (9-16); Calcium 9.5 mg/dL (8.4-10.2); Carbon Dioxide 23 mmol/L (22-29); Chloride 105 mmol/L (96-108); Creatinine Clr Calc Pharmacy 49.3; Estimated Glomerular Filt Rate 40; Glucose Fasting 51 mg/dL (60-99); Potassium 3.8 mmol/L (3.3-5.1); Sodium 137 mmol/L (135-145); Total Protein 6.2 g/dL (6.5-8.0)
[2021-10-01 07:36] LABS: Ammonia 27 umol/L (13-55)
[2021-10-01 07:51] LABS: Glucose, Whole Blood 55 mg/dL (60-115)
[2021-10-01 07:57] VITALS: BP 131/59; PULSE 74; RESP 20; TEMP 36.7; O2SAT 100
[2021-10-01 08:02] LABS: Glucose, Whole Blood 93 mg/dL (60-115)
--- NOTE | 2021-10-01 09:28 | P.CDIC_ITS ---
CDI Concurrent Query Documentation Clarification: PHYSICIAN'S DOCUMENTATION REQUEST Date of Query: 10/01/21 0929 Patient Name: Elysia Valle Admit Date: 09/30/21 Dear Doctor, A review of the medical record indicates additional documentation may be needed. Please review below and update the documentation accordingly. Clinical Indicators: Risk Factors/Clinical Indicators/Treatments Increased confusion, significantly altered mental status missed Lactulose for last 3-4 days. Usually alert and oriented, definitely more confused. Hepatic encephalopathy, CHIN. Based on the above, please further specify, in the Progress Notes, the known or suspected type of the documented encephalopathy: * Metabolic * Toxic * Toxic metabolic * Other (please specify) * Unable to determine Use of terms such as suspected, likely, concern for, or probable (associated with a specific diagnosis that is being evaluated, monitored, or treated as if it exists) are acceptable and can be coded in the inpatient setting, when documented at the time of discharge. Thank you, Domenica Paige [facility],CDIS Extension: [phone] Please use your independent medical judgment in providing your response. THIS QUERY IS PART OF THE PERMANENT MEDICAL RECORD Provider Response: Other Other Diagnosis: Metabolic encephalopathy secondary to end-stage cirrhosis
[2021-10-01] MEDS: Lactulose 20 GM/30 ML SOLUTION 30 GM PO (09:33)
[2021-10-01] MEDS: Spironolactone 25 MG TABLET 100 MG PO (09:35)
[2021-10-01] MEDS: Cholecalciferol (Vitamin D3) 25 MCG TABLET PO (09:35)
[2021-10-01] MEDS: Metoprolol Succinate ER 25 MG TAB.ER.24H PO (09:36)
[2021-10-01] MEDS: rifAXIMin 550 MG TABLET PO (09:36)
[2021-10-01] MEDS: Apixaban 5 MG TABLET PO (09:37)
[2021-10-01] MEDS: Furosemide 20 MG TABLET PO (09:37)
[2021-10-01] MEDS: Ferrous Sulfate 324 MG TABLET.DR PO (09:37)
[2021-10-01] MEDS: Magnesium Oxide 400 MG TABLET 800 MG PO (09:38)
[2021-10-01] MEDS: metFORMIN HCl 500 MG TABLET PO (09:38)
--- NOTE | 2021-10-01 09:52 | MHC.CM.PN ---
Addendum entered by Myesha Sesay RN 10/01/21 10:02: PT ON LIVER TRANSPLANT LIST AT [facility] IN [place]. Original Note: IMM 10/01/21, EMR REVIEWED, PT ADMITTED W/AMS W/ABNORMAL LABS, PT MISSED A FEW DOSES OF LACTULOSE AND HAS BEEN RESTARTED, PLAN TO D/C ONCE CLEARED, CM MET W/PT WHO IS A&O HOWEVER HAVING DIFFICULTY RECALLING PHONE NUMBERS AND SOME INFORMATION, PT REPORTS SHE IS INDEPENDENT AT HOME, HAS DIABETIC SUPPLIES AND DOES HER OWN BS'S AND GIVES HERSELF SHORT & LONG ACTING INSULIN, NO HOME SERVICES AND PT DECLINES NEED FOR SERVICES, PT VERIFIES HER PCP IS NATASHA CHENEY, HCP IS HER JC GATES [phone] AND COPY IS ON FILE FROM PREVIOUS VISIT, CM IS FULLY COVID VACCINATED W/PFIZER 12/02, 12/23 AND 07/02. D/C PLAN: HOME NO SERVICES, TO TRANSPORT.
[2021-10-01 11:37] VITALS: BP 123/64; PULSE 70; RESP 18; TEMP 36.3; O2SAT 100
[2021-10-01 11:58] LABS: Glucose, Whole Blood 240 mg/dL (60-115)
[2021-10-01] MEDS: Insulin Lispro 100 UNIT/ML 3 ML VIAL SUBCUT (12:04)
--- NOTE | 2021-10-01 12:40 | PM.DS ---
DS: Providers Provider Date of Service: 10/01/21 Date of admission: 09/30/21 17:13 Primary care physician: Unknown Physician DS: Diagnosis Discharge Diagnosis (1) Hepatic encephalopathy: Status: Acute (2) Portal vein thrombosis: Status: Acute (3) Type 2 diabetes mellitus: Status: Acute DS: Summary Hospital Course Hospital Course: 61-year-old female with known history of cirrhotic liver disease related to CHIN presents with increased confusion and increased ammonia level. Per discussion with patient omitted a dose or 2 of lactulose because of a trip to [place] to see the transplant team. states it is likely she became forgetful and missed several doses. She was admitted to the hospital overnight gentle IV fluids were given and she received 30 ml of lactulose at bedtime. This morning her ammonia level is normalized and she is fully cognitive at her baseline Time Spent with Patient Time attestation: Total time spent providing and/or coordinating discharge services: Discharge coordination time: Greater than 30 minutes Quality: Stroke Does the patient have a stroke diagnosis?: No Physical Exam Vital Signs: Vital Signs: Last Vital Signs Temp 97.3 F 10/01/21 11:37 Pulse 70 10/01/21 11:37 Resp 18 10/01/21 11:37 BP 123/64 10/01/21 11:37 Pulse Ox 100 10/01/21 11:37 BMI result Body Mass Index 38.9 Const: Other: Resting comfortably no acute distress. Pleasantly confused but easily reoriented Resp: Other: Clear to auscultation bilaterally. No rales rhonchi or wheezes Cardio: Other: No S4; positive S1-S2; no S3 murmurs rubs gallops GI: Other: Soft nontender nondistended with normoactive bowel sounds. There is no rebound or guarding appreciated Neuro: Other: Cranial nerves 2-12 grossly intact as tested. Motor is 5/5 all extremities. Sensation is intact. There is a bilateral asterixis of wrists Extrem: Other: No edema bilateral DS: Data Data Completed and Pending Labs on day of discharge: Laboratory Results - last 24 hr 09/30/21 09/30/21 09/30/21 14:03 14:03 14:03 WBC 7.4 RBC 4.03 L Hgb 12.8 Hct 37.0 MCV 91.8 MCH 31.8 MCHC 34.6 RDW 14.3 Plt Count 115 L MPV 10.3 Immature Gran % (Auto) 0.3 Neut % (Auto) 75.6 H Lymph % (Auto) 12.6 L [place] % (Auto) 9.2 Eos % (Auto) 1.7 Baso % (Auto) 0.6 Lymph # (Auto) 0.9 L [place] # (Auto) 0.7 Eos # (Auto) 0.1 Baso # (Auto) 0.0 Abs Immat Gran (auto) 0.02 Absolute Neuts (auto) 5.4 Absolute Nucleated RBC 0.000 Nucleated RBC % (auto) 0.0 PT 12.0 INR 1.1 APTT 31.2 Sodium Potassium Chloride Carbon Dioxide Anion Gap BUN Creatinine Estim Creat Clear Calc Estimated GFR POC Glucose Random Glucose Fasting Glucose Calcium Magnesium Total Bilirubin AST ALT Alkaline Phosphatase Ammonia 57 H Total Protein Albumin Lipase Urine Color Urine Appearance Urine pH Ur Specific [place] Urine Protein Urine Glucose (UA) Urine Ketones Urine Blood Urine Nitrite Ur Leukocyte Esterase Urine RBC Urine WBC Ur Squamous Epith Cells Urine Bacteria COVID-19 (MARKIE) COVID-19 Clin Com 09/30/21 09/30/21 09/30/21 14:03 14:03 16:29 WBC RBC Hgb Hct MCV MCH MCHC RDW Plt Count MPV Immature Gran % (Auto) Neut % (Auto) Lymph % (Auto) [place] % (Auto) Eos % (Auto) Baso % (Auto) Lymph # (Auto) [place] # (Auto) Eos # (Auto) Baso # (Auto) Abs Immat Gran (auto) Absolute Neuts (auto) Absolute Nucleated RBC Nucleated RBC % (auto) PT INR APTT Sodium 134 L Potassium 5.4 H D Chloride 103 Carbon Dioxide 21 L Anion Gap 15 BUN 18 H Creatinine 1.60 H Estim Creat Clear Calc 41.0 Estimated GFR 33 POC Glucose Random Glucose 169 H Fasting Glucose Calcium 10.1 Magnesium 2.1 Total Bilirubin 2.3 H AST 35 H ALT 21 Alkaline Phosphatase 99 Ammonia Total Protein 7.0 Albumin 3.2 L Lipase 29 Urine Color YELLOW Urine Appearance CLEAR Urine pH 8.0 Ur Specific [place] 1.015 Urine Protein NEG Urine Glucose (UA) NEG Urine Ketones NEG Urine Blood NEG Urine Nitrite POS H Ur Leukocyte Esterase NEG Urine RBC 1-4 Urine WBC 1-4 Ur Squamous Epith Cells TRACE Urine Bacteria 3+ COVID-19 (MARKIE) Negative COVID-19 Clin Com See Note 09/30/21 09/30/21 10/01/21 19:04 20:44 05:50 WBC 6.8 RBC 3.68 L Hgb 11.5 L Hct 33.3 L MCV 90.5 MCH 31.3 MCHC 34.5 RDW 14.3 Plt Count 130 L MPV 10.4 Immature Gran % (Auto) 0.3 Neut % (Auto) 53.4 Lymph % (Auto) 29.7 [place] % (Auto) 11.6 H Eos % (Auto) 4.3 H Baso % (Auto) 0.7 Lymph # (Auto) 2.0 [place] # (Auto) 0.8 Eos # (Auto) 0.3 Baso # (Auto) 0.1 Abs Immat Gran (auto) 0.02 Absolute Neuts (auto) 3.6 Absolute Nucleated RBC 0.000 Nucleated RBC % (auto) 0.0 PT INR APTT Sodium Potassium Chloride Carbon Dioxide Anion Gap BUN Creatinine Estim Creat Clear Calc Estimated GFR POC Glucose 161 H 158 H Random Glucose Fasting Glucose Calcium Magnesium Total Bilirubin AST ALT Alkaline Phosphatase Ammonia Total Protein Albumin Lipase Urine Color Urine Appearance Urine pH Ur Specific [place] Urine Protein Urine Glucose (UA) Urine Ketones Urine Blood Urine Nitrite Ur Leukocyte Esterase Urine RBC Urine WBC Ur Squamous Epith Cells Urine Bacteria COVID-19 (MARKIE) COVID-19 Clin Com 10/01/21 10/01/21 10/01/21 05:50 07:21 07:32 WBC RBC Hgb Hct MCV MCH MCHC RDW Plt Count MPV Immature Gran % (Auto) Neut % (Auto) Lymph % (Auto) [place] % (Auto) Eos % (Auto) Baso % (Auto) Lymph # (Auto) [place] # (Auto) Eos # (Auto) Baso # (Auto) Abs Immat Gran (auto) Absolute Neuts (auto) Absolute Nucleated RBC Nucleated RBC % (auto) PT INR APTT Sodium 137 Potassium 3.8 D Chloride 105 Carbon Dioxide 23 Anion Gap 13 BUN 17 H Creatinine 1.33 Estim Creat Clear Calc 49.3 Estimated GFR 40 POC Glucose 55 L* Random Glucose Fasting Glucose 51 L* Calcium 9.5 Magnesium Total Bilirubin 2.6 H AST 27 ALT 15 Alkaline Phosphatase 90 Ammonia 27 Total Protein 6.2 L Albumin 3.0 L Lipase Urine Color Urine Appearance Urine pH Ur Specific [place] Urine Protein Urine Glucose (UA) Urine Ketones Urine Blood Urine Nitrite Ur Leukocyte Esterase Urine RBC Urine WBC Ur Squamous Epith Cells Urine Bacteria COVID-19 (MARKIE) COVID-19 [employer] Com 10/01/21 10/01/21 07:58 11:40 WBC RBC Hgb Hct MCV MCH MCHC RDW Plt Count MPV Immature Gran % (Auto) Neut % (Auto) Lymph % (Auto) [place] % (Auto) Eos % (Auto) Baso % (Auto) Lymph # (Auto) [place] # (Auto) Eos # (Auto) Baso # (Auto) Abs Immat Gran (auto) Absolute Neuts (auto) Absolute Nucleated RBC Nucleated RBC % (auto) PT INR APTT Sodium Potassium Chloride Carbon Dioxide Anion Gap BUN Creatinine Estim Creat Clear Calc Estimated GFR POC Glucose 93 240 H Random Glucose Fasting Glucose Calcium Magnesium Total Bilirubin AST ALT Alkaline Phosphatase Ammonia Total Protein Albumin Lipase Urine Color Urine Appearance Urine pH Ur Specific [place] Urine Protein Urine Glucose (UA) Urine Ketones Urine Blood Urine Nitrite Ur Leukocyte Esterase Urine RBC Urine WBC Ur Squamous Epith Cells Urine Bacteria COVID-19 (MARKIE) COVID-19 Clin Com Discharge Plan Discharge Patient Disposition: Home, Self-Care Discharge Diagnosis: Hepatic Encephalopathy Referrals: Physician,Unknown J [Primary Care Provider] - 1 Week Discharge Medications: Continued magnesium oxide 400 mg (241.3 mg magnesium) tablet 800 mg PO TID Qty: 540 RF: 3 ferrous sulfate 325 mg (65 mg iron) tablet 325 mg PO BID Qty: 180 RF: 1 furosemide 20 mg tablet 20 mg PO DAILY 30 Days Qty: 30 RF: 0 spironolactone 100 mg tablet 100 mg PO DAILY 30 Days Qty: 30 RF: 3 insulin lispro [Humalog KwikPen Insulin] 100 unit/mL insulin pen See Protocol sliding scale dose subcut TIDAC RF: 0 acetaminophen 325 mg Tablet 650 mg PO Q4H PRN (Reason: Pain) RF: 0 cholecalciferol (vitamin D3) [Vitamin D3] 25 mcg (1,000 unit) capsule 1 cap PO DAILY RF: 0 Eliquis 5 mg tablet 5 mg PO BID RF: 0 metoprolol succinate 25 mg tablet extended release 24 hr 25 mg PO DAILY RF: 0 omeprazole 40 mg capsule,delayed release(DR/EC) 40 mg PO DAILY RF: 0 insulin glargine 100 unit/mL (3 mL) insulin pen 50 unit subcut BEDTIME RF: 0 lactulose 10 gram/15 mL solution 15 ml PO BID RF: 0 ondansetron HCl 4 mg tablet 4 mg PO Q6H PRN (Reason: nausea/vomiting) RF: 0 cyclosporine 0.05 % dropperette 1 drp ophthalmic (eye) BEDTIME RF: 0 clotrimazole-betamethasone 1-0.05 % cream 1 applic topical BID PRN (Reason: Rash) RF: 0 fluticasone propionate 250 mcg/actuation blister with device 1 inh inhalation BEDTIME RF: 0 lorazepam 0.5 mg tablet 0.5 mg PO BEDTIME RF: 0 dulaglutide 1.5 mg/0.5 mL pen injector 3 mg subcut FR RF: 0 rifaximin 550 mg tablet 550 mg PO BID RF: 0 lovastatin 40 mg tablet 40 mg PO BEDTIME RF: 0 levothyroxine 137 mcg tablet 137 mcg PO MOTUWETHFR RF: 0 metformin 500 mg tablet 500 mg PO DAILY RF: 0 Discharge Orders: Discharge Order (Routine); Ordered 10/01/21 Ordered By: Marky Arias Diet: advance to usual diet Activity on Discharge: As tolerated Stand Alone Forms: Patient Portal Discharge page Care Plan Goals: Continue lactulose as previously dosed 15 mL per day. Follow-up with your GI/transplant team as scheduled Health Concerns: To not skip doses of lactulose for travel or other issues. Plan of Treatment: As per your transplant team Assessment: As above
== END 2021-10-01 13:50 | disposition home or self-care (01) | DRG 441 ==
LOC: HO.ED 13:44 → HO.EDOVER 17:26 → HO.S3 19:45
PROVIDERS: Admitting Provider Hospitalist; Emergency Provider Internal Medicine; PCP Internal Medicine; Visit Provider Hospitalist
DX: K72.90 Hepatic failure, unspecified without coma (principal); I81 Portal vein thrombosis; G93.41 Metabolic encephalopathy; I48.0 Paroxysmal atrial fibrillation; E78.5 Hyperlipidemia, unspecified; I48.91 Unspecified atrial fibrillation; K75.81 Nonalcoholic steatohepatitis (NASH); K74.60 Unspecified cirrhosis of liver; Z91.14 Patient's other noncompliance with medication regimen; Z20.822 Contact with and (suspected) exposure to COVID-19; Z88.0 Allergy status to penicillin; Z88.5 Allergy status to narcotic agent; Z79.01 Long term (current) use of anticoagulants; Z79.51 Long term (current) use of inhaled steroids; Z79.890 Hormone replacement therapy; Z79.84 Long term (current) use of oral hypoglycemic drugs; Z79.899 Other long term (current) drug therapy
CPT/HCPCS: 36415; 71045; 80053; 81001; 82140; 82947; 83690; 83735; 85025; 85610; 85730; 87086; 87635; 93005; 96360; 99285

== ENCOUNTER 2021-12-06 15:43 | Outpatient (REF) | payer MEDICARE, SELFPAY ==
[2021-12-06 16:17] LABS: Ammonia 56 umol/L (13-55)
[2021-12-06 16:23] LABS: Monocytes Percent Auto 9.8 % (2-11); PLT CLUMP 1; SCAN SMEAR FLAG 1
[2021-12-06 16:25] LABS: Basophils Absolute Auto 0.1 X10*3/uL (0.0-0.2); Basophils Percent Auto 1.1 % (0-2); Eosinophils Absolute Auto 0.3 X10*3/uL (0.0-0.4); Eosinophils Percent Auto 4.4 % (0-4); Hematocrit 35.9 % (37.0-47.0); Hemoglobin 11.9 g/dl (12.0-16.0); Imm Gran Abs Auto 0.03 X10*3/uL (0.00-0.03); Imm Gran Pct Auto 0.5 % (0.0-0.4); Lymphocytes Absolute Auto 1.3 X10*3/uL (1.2-4.9); Lymphocytes Percent Auto 19.7 % (20-40); MANUAL DIFF FLAG SCAN; Mean Corpuscular HGB Conc 33.1 g/dl (31.0-35.0); Mean Corpuscular Hemoglobin 31.7 pg (27.0-33.0); Mean Corpuscular Volume 95.7 fL (80.0-98.0); Mean Platelet Volume 10.8 fL (9.4-12.3); Monocytes Absolute Auto 0.6 X10*3/uL (0.1-1.2); Neutrophils Absolute Auto 4.1 x10*3/uL (2.0-8.3); Neutrophils Percent Auto 64.5 % (45-73); Red Blood Count 3.75 X10*6/uL (4.20-5.50); Red Cell Distribution Width 14.4 % (11.0-16.0)
[2021-12-06 16:32] LABS: Estimated Average Glucose 194 mg/dL; Hemoglobin A1c % 8.4 %
[2021-12-06 16:53] LABS: White Blood Count 6.5 X10*3/uL (4.8-10.8)
[2021-12-06 16:54] LABS: Platelet Count 116 X10*3/uL (160-400); SLIDE REVIEW VERIFIED
[2021-12-06 17:13] LABS: Alanine Aminotransferase 17 U/L (0-31); Albumin Level 3.2 g/dL (3.5-5.0); Alkaline Phosphatase 106 U/L (39-117); Anion Gap 14 (12-20); Aspartate Amino Transferase 27 U/L (5-31); Bilirubin Total 2.1 mg/dL (0.0-1.0); Blood Urea Nitrogen 16 mg/dL (9-16); C Reactive Protein 0.29 mg/dL (< or = 0.50); Calcium 9.7 mg/dL (8.4-10.2); Carbon Dioxide 25 mmol/L (22-29); Chloride 97 mmol/L (96-108); Estimated Glomerular Filt Rate 31; Glucose Random 461 mg/dL (60-115); Iron 98 mcg/dL (30-160); Percent Iron Saturation 28 % (15-50); Potassium 5.3 mmol/L (3.3-5.1); Sodium 131 mmol/L (135-145); Total Iron Binding Capacity 350 mcg/dL (228-428); Total Protein 6.8 g/dL (6.5-8.0); Unsaturated Iron Binding 252 ug/dL
[2021-12-06 17:14] LABS: Thyroid Stimulating Hormone 8.36 uIU/mL (0.32-4.0); Vitamin D 25-OH Total 32.3 ng/mL (>30)
[2021-12-06 17:27] LABS: Folate 8.6 ng/mL (> or = 4.0); Vitamin B12 431 pg/mL (200-900)
== END 2021-12-06 15:44 | disposition home or self-care (01) ==
LOC: HO.LAB 15:43
PROVIDERS: PCP Internal Medicine; Visit Provider Internal Medicine
DX: E03.9 Hypothyroidism, unspecified (principal); E11.9 Type 2 diabetes mellitus without complications; I10 Essential (primary) hypertension; K72.10 Chronic hepatic failure without coma; R53.83 Other fatigue
CPT/HCPCS: 36415; 80053; 82140; 82306; 82607; 82746; 83036; 83540; 84443; 85025; 86140

== ENCOUNTER 2022-02-04 12:31 | Outpatient (REF) | payer MEDICARE, SELFPAY ==
[2022-02-04 14:02] LABS: INTERNATIONAL NORM RATIO 1.1 (0.9-1.1); Prothrombin Time 12.2 SEC (9.9-13.0)
== END 2022-02-04 12:32 | disposition home or self-care (01) ==
LOC: HO.HMGCLDS 12:31
PROVIDERS: Visit Provider Physician Assistant
DX: I48.0 Paroxysmal atrial fibrillation (principal)
CPT/HCPCS: 36415; 85610

== ENCOUNTER → 2022-02-10 10:29 | Outpatient (BNVA) | payer MEDICARE, SELFPAY | PROVIDERS: PCP Internal Medicine; Visit Provider Internal Medicine | DX: I48.0 Paroxysmal atrial fibrillation (principal); Z79.01 Long term (current) use of anticoagulants; Z51.81 Encounter for therapeutic drug level monitoring | CPT/HCPCS: 85610; 99202 ==

== ENCOUNTER → 2022-02-14 13:58 | Outpatient (BNVA) | payer MEDICARE, SELFPAY | PROVIDERS: PCP Internal Medicine; Visit Provider Internal Medicine | DX: I48.0 Paroxysmal atrial fibrillation (principal); Z79.01 Long term (current) use of anticoagulants; Z51.81 Encounter for therapeutic drug level monitoring | CPT/HCPCS: 85610; 99211 ==

== ENCOUNTER → 2022-02-17 13:57 | Outpatient (BNVA) | payer MEDICARE, SELFPAY | PROVIDERS: PCP Internal Medicine; Visit Provider Internal Medicine | DX: I48.0 Paroxysmal atrial fibrillation (principal); Z79.01 Long term (current) use of anticoagulants; Z51.81 Encounter for therapeutic drug level monitoring | CPT/HCPCS: 85610; 99211 ==

== ENCOUNTER → 2022-02-22 13:52 | Outpatient (BNVA) | payer MEDICARE, SELFPAY | PROVIDERS: PCP Internal Medicine; Visit Provider Internal Medicine | DX: I48.0 Paroxysmal atrial fibrillation (principal); Z79.01 Long term (current) use of anticoagulants; Z51.81 Encounter for therapeutic drug level monitoring | CPT/HCPCS: 85610; 99211 ==

== ENCOUNTER → 2022-02-25 13:56 | Outpatient (BNVA) | payer MEDICARE, SELFPAY | PROVIDERS: PCP Internal Medicine; Visit Provider Internal Medicine | DX: I48.0 Paroxysmal atrial fibrillation (principal); Z79.01 Long term (current) use of anticoagulants; Z51.81 Encounter for therapeutic drug level monitoring | CPT/HCPCS: 85610; 99211; Q3014 ==

== ENCOUNTER → 2022-02-28 13:56 | Outpatient (BNVA) | payer MEDICARE, SELFPAY | PROVIDERS: PCP Internal Medicine; Visit Provider Internal Medicine | DX: I48.0 Paroxysmal atrial fibrillation (principal); Z79.01 Long term (current) use of anticoagulants; Z51.81 Encounter for therapeutic drug level monitoring | CPT/HCPCS: 85610; 99211 ==

== ENCOUNTER → 2022-03-04 13:56 | Outpatient (BNVA) | payer MEDICARE, SELFPAY | PROVIDERS: PCP Internal Medicine; Visit Provider Internal Medicine | DX: I48.0 Paroxysmal atrial fibrillation (principal); Z79.01 Long term (current) use of anticoagulants; Z51.81 Encounter for therapeutic drug level monitoring | CPT/HCPCS: 85610; 99211 ==

== ENCOUNTER 2022-03-08 13:36 | Outpatient (REF) | payer MEDICARE, SELFPAY ==
[2022-03-08 14:02] LABS: Ammonia 52 umol/L (13-55)
== END 2022-03-08 13:37 | disposition home or self-care (01) ==
LOC: HO.LAB 13:36
PROVIDERS: PCP Internal Medicine; Visit Provider Physician Assistant
DX: K74.02 Hepatic fibrosis, advanced fibrosis (principal)
CPT/HCPCS: 36415; 82140; 85610; 99211

== ENCOUNTER 2022-03-09 13:15 | Outpatient (REF) | payer MEDICARE, SELFPAY ==
[2022-03-09 16:45] LABS: Alanine Aminotransferase 16 U/L (0-31); Alkaline Phosphatase 98 U/L (39-117); Anion Gap 10 (12-20); Aspartate Amino Transferase 28 U/L (5-31); Bilirubin Total 2.1 mg/dL (0.0-1.0); Blood Urea Nitrogen 16 mg/dL (9-16); Calcium 9.3 mg/dL (8.4-10.2); Carbon Dioxide 29 mmol/L (22-29); Chloride 100 mmol/L (96-108); Estimated Glomerular Filt Rate 36; Glucose Random 271 mg/dL (60-115); Potassium 5.2 mmol/L (3.3-5.1); Sodium 134 mmol/L (135-145); Total Protein 6.2 g/dL (6.5-8.0)
[2022-03-15 00:16] LABS: FIB-ALT 13 U/L (6-29); FIB-Alpha-2-Macroglobulin 282 mg/dL (106-279); FIB-Apolipoprotein A1 161 mg/dL (101-198); FIB-GGT 32 U/L (3-65); FIB-Haptoglobin <8 mg/dL (43-212); FIB-Total Bilirubin 1.8 mg/dL (0.2-1.2); Liver Fibrosis Score 0.87; Liver Fibrosis Stage F4; Nec Inflam Act Grade A0; Nec Inflam Act Score 0.09
== END 2022-03-09 13:16 | disposition home or self-care (01) ==
LOC: HO.HMGCLDS 13:15
PROVIDERS: PCP Internal Medicine; Visit Provider Physician Assistant
DX: K74.02 Hepatic fibrosis, advanced fibrosis (principal)
CPT/HCPCS: 36415; 80053; 81596

== ENCOUNTER → 2022-03-11 13:50 | Outpatient (BNVA) | payer MEDICARE, SELFPAY | PROVIDERS: PCP Internal Medicine; Visit Provider Internal Medicine | DX: I48.0 Paroxysmal atrial fibrillation (principal); Z79.01 Long term (current) use of anticoagulants; Z51.81 Encounter for therapeutic drug level monitoring | CPT/HCPCS: 85610; 99211 ==

== ENCOUNTER → 2022-03-21 13:58 | Outpatient (BNVA) | payer MEDICARE, SELFPAY | PROVIDERS: PCP Internal Medicine; Visit Provider Internal Medicine | DX: I48.0 Paroxysmal atrial fibrillation (principal); Z79.01 Long term (current) use of anticoagulants; Z51.81 Encounter for therapeutic drug level monitoring | CPT/HCPCS: Q3014 ==

== ENCOUNTER 2022-03-21 14:58 | Emergency (ER) | payer MEDICARE, SELFPAY ==
--- NOTE | ~2022-03-21 | CT_ITS ---
EXAMINATION: CT HEAD WITHOUT CONTRAST CLINICAL INFORMATION: Confusion COMPARISON: None. TECHNIQUE: Contiguous axial imaging was performed from the skull base to vertex without intravenous contrast. This CT examination was performed using dose optimization techniques as appropriate, variously including the following: * Automated exposure control * Adjustment of mA and/or kV according to patient size (this includes techniques or standardized protocols for targeted exams where dose is matched to indication/reason for exam; i.e. extremities or head) Use of iterative reconstruction technique DLP: 596 mGy-cm. FINDINGS: There is no evidence of acute intracranial hemorrhage or territorial infarction. No abnormal mass effect or midline shift is seen. Mccurdy to white matter differentiation is well preserved. No extra-axial fluid collections are identified. No hydrocephalus. Proportional prominence of the ventricles and sulcal spaces is consistent with mild volume loss. There is no abnormal attenuation within the brain parenchyma. The osseous structures and soft tissues are normal. Mild opacification of the left maxillary sinus. The mastoid air cells and visualized portions of the paranasal sinuses are otherwise well aerated. CT/CT head/brain wo con IMPRESSION: No acute intracranial pathology.
[2022-03-21 15:03] VITALS: BP 141/54; PULSE 74; RESP 20; TEMP 36.6; O2SAT 99; BMI 35.0
[2022-03-21 15:52] LABS: MANUAL DIFF FLAG NO
[2022-03-21 15:59] LABS: Basophils Absolute Auto 0.1 X10*3/uL (0.0-0.2); Basophils Percent Auto 0.9 % (0-2); Eosinophils Absolute Auto 0.3 X10*3/uL (0.0-0.4); Eosinophils Percent Auto 4.1 % (0-4); Hematocrit 34.5 % (37.0-47.0); Hemoglobin 11.9 g/dl (12.0-16.0); Imm Gran Abs Auto 0.02 X10*3/uL (0.00-0.03); Imm Gran Pct Auto 0.3 % (0.0-0.4); Lymphocytes Absolute Auto 1.3 X10*3/uL (1.2-4.9); Lymphocytes Percent Auto 20.2 % (20-40); Mean Corpuscular HGB Conc 34.5 g/dl (31.0-35.0); Mean Corpuscular Hemoglobin 31.3 pg (27.0-33.0); Mean Corpuscular Volume 90.8 fL (80.0-98.0); Mean Platelet Volume 10.3 fL (9.4-12.3); Monocytes Absolute Auto 0.8 X10*3/uL (0.1-1.2); Monocytes Percent Auto 11.9 % (2-11); Neutrophils Percent Auto 62.6 % (45-73); Platelet Count 132 X10*3/uL (160-400); Red Cell Distribution Width 14.4 % (11.0-16.0); White Blood Count 6.4 X10*3/uL (4.8-10.8)
[2022-03-21 16:11] LABS: Anion Gap 13 (12-20); Blood Urea Nitrogen 20 mg/dL (9-16); Calcium 9.7 mg/dL (8.4-10.2); Carbon Dioxide 27 mmol/L (22-29); Chloride 100 mmol/L (96-108); Creatinine Clr Calc Pharmacy 39.8; Estimated Glomerular Filt Rate 29; Ethanol < 10 mg/dL; Glucose Random 284 mg/dL (60-115); Potassium 4.6 mmol/L (3.3-5.1); Sodium 135 mmol/L (135-145)
--- NOTE | 2022-03-21 21:52 | ED_ITS ---
HPI - General Adult General Chief complaint: Altered Mental Status Stated complaint: possible stroke Time Seen by Provider: 03/21/22 21:52 Source: patient Mode of arrival: ambulatory Limitations: no limitations History of Present Illness HPI narrative: Confusion all day. Patient is on anticoagulation for portal vein thrombosis and is on a liver transplant list. Patient is on lactulose of encephalopathy and states that she does take her medication and does get confused when she does not take her lactulose. Family feels that she has been taking her medication. She did not go to anticoagulation clinic. Onset (ago): day(s) Severity: mild Associated symptoms: confusion Related Data Home Medications Medication Instructions Recorded Confirmed clotrimazole-betamethasone 1 1 applic topical BID PRN Rash 07/02/20 03/11/22 %-0.05 % topical cream cyclosporine 0.05 % eye drops in a 1 drp ophthalmic (eye) BEDTIME 07/02/20 03/11/22 dropperette fluticasone propionate 250 1 inh inhalation BEDTIME 07/02/20 03/11/22 mcg/actuation blister powder for inhalation insulin glargine 100 unit/mL (3 50 unit subcut BEDTIME 07/02/20 03/11/22 mL) subcutaneous pen lactulose 10 gram/15 mL oral 15 ml PO BID 07/02/20 03/11/22 solution lorazepam 0.5 mg tablet 0.5 mg PO BEDTIME 07/02/20 03/11/22 lovastatin 40 mg tablet 40 mg PO BEDTIME 08/19/20 03/11/22 metformin 500 mg tablet 500 mg PO DAILY 11/10/20 03/11/22 metoprolol succinate 25 mg 25 mg PO DAILY 01/01/21 03/11/22 tablet,extended release 24 hr omeprazole 40 mg capsule,delayed 40 mg PO DAILY 06/24/21 03/11/22 release rifaximin 550 mg tablet 550 mg PO BID 06/24/21 03/11/22 acetaminophen 325 mg tablet 650 mg PO Q4H PRN Pain 07/27/21 03/11/22 insulin lispro 100 unit/mL See Protocol subcut TIDAC 07/27/21 03/11/22 subcutaneous pen (Humalog KwikPen (U-100) Insulin) cholecalciferol (vitamin D3) 25 1 cap PO DAILY 09/30/21 03/11/22 mcg (1,000 unit) capsule (Vitamin D3) warfarin 2 mg tablet 2 mg PO DAILY 02/10/22 03/11/22 dulaglutide 3 mg/0.5 mL mg subcut QWEEK 02/25/22 03/11/22 subcutaneous pen injector (Trulicity) levothyroxine 112 mcg tablet 112 mcg PO DAILY 02/25/22 03/11/22 (Synthroid) silver sulfadiazine 1 % topical appl topical BID 02/25/22 03/11/22 cream Previous Rx's Medication Instructions Recorded magnesium oxide 400 mg (241.3 mg 800 mg PO TID #540 tabs 01/25/21 magnesium) tablet ferrous sulfate 325 mg (65 mg 325 mg PO BID #180 tabs 10/22/21 iron) tablet furosemide 20 mg tablet 20 mg PO DAILY 30 days #90 tabs 11/29/21 nystatin 100,000 unit/gram topical 1 appl topical BID #30 grams 01/22/22 cream spironolactone 100 mg tablet 100 mg PO DAILY #90 tabs 02/28/22 Allergies Allergy/AdvReac Type Severity Reaction Status Date / Time metoclopramide [From REGLAN] Allergy Unknown SWELLING Verified 03/21/22 15:11 tramadol [TRAMADOL] Allergy Unknown SWELLING Verified 03/21/22 15:11 From AUGMENTIN Allergy Mild COUGHING, Uncoded 03/21/22 15:11 LOW BP\ Review of Systems Constitutional: Constitutional: Reports no additional constitutional complaints Eyes: Eyes: Reports no additional eye complaints ENT: Denies dizziness Cardiovascular: Cardiovascular: Reports no additional cardiovascular complaints Respiratory: Respiratory: Reports as per HPI Gastrointestinal: Gastrointestinal: Reports no additional gastrointestinal complaints Genitourinary: Genitourinary: Reports no additional female genitourinary complaints Musculoskeletal: Musculoskeletal: Reports no additional musculoskeletal complaints Integumentary/Breasts: Skin/Breast: Denies rash Neurologic: Reports system reviewed and no additional complaints, except as documented, Denies dizziness and Denies Sensory deficit (Neuro) Psychiatric: Psychiatric: Denies anxiety PMFSH Past Medical History Medical History Cirrhosis of liver with ascites Portal hypertension Shingles Thyroid disease Surgical History History of partial hysterectomy (~1998) Hx of colonoscopy Hx of endoscopy Status post surgical removal of pilonidal cyst (~1979) Family History Family History Father No problems noted. Mother No problems noted. Paternal Grandmother Colon cancer Social History Social History Household Members: Spouse Housing: House Do you presently have visiting nurse or other home services: No Alcohol intake: former (sts prev etoh rare) Patient Tobacco Use Status: Never used Tobacco Advance Directives: No Advance Directives Information Provided: No service: No Current occupational status: disabled Current occupational exposures/hazards: No Physical Exam ED Vital Signs: Vital Signs - 24 hr 03/21/22 15:03 03/21/22 22:55 Temperature 98 F 98.4 F Pulse Rate 74 69 Respiratory Rate 20 18 Blood Pressure 141/54 H 146/63 H Pulse Oximetry 99 99 Oxygen Delivery Method Room Air Room Air BMI result Body Mass Index 35.0 Const General: healthy appearing Nutritional Appearance: average body habitus Orientation/consciousness: oriented to person and patient oriented x3 Limitations: no limitations HENMT Head: Yes normal to inspection Ears: external ears normal General nose exam: Normal external nose present Mouth: Normal oral and palatal mucosa present and oropharynx normal Throat: Yes posterior oropharynx normal Eyes General: appearance normal, both eyes and all related structures Neck Neck: Yes normal visual inspection Chest Chest palpation & inspection: normal inspection of the chest Resp Auscultation: clear to auscultation bilaterally Cardio Jugular venous distension: no JVD Rate: regular rate Rhythm: regular rhythm Heart sounds: S1 normal heart sound present and S2 normal heart sound present GI Inspection: Yes normal to inspection Palpation (GI): Soft to palpation, nontender and No hepatosplenomegaly present Auscultation: normal bowel sounds General: Yes no CVA tenderness Back/Spine/Pelvis Back: no CVA tenderness Skin General skin exam: no rashes or lesions noted Neuro General: oriented to person and patient oriented x3 Cranial nerves: Yes CN's II-XII intact bilaterally Motor exam (neuro): 5/5 motor strength present throughout Sensory Exam: No Sensory deficit (Neuro) Extrem General: Yes normal to inspection Psych Appearance: grossly normal Course Reevaluation(s) Reevaluation #1: No obvious reason for confusion, patient does not appear to be in hepatic encephalopathy, no UTI, head ct normal. Will have patient follow up with PMD Time: 00:55 Medical Decision Making Lab Data Result diagrams: 03/21/22 15:46 03/21/22 15:46 Labs: Lab Results 03/21/22 03/21/22 03/21/22 Range/Units 15:46 15:46 22:16 WBC 6.4 (4.8-10.8) X10*3/uL RBC 3.80 L (4.20-5.50) X10*6/uL Hgb 11.9 L (12.0-16.0) g/dl Hct 34.5 L (37.0-47.0) % MCV 90.8 (80.0-98.0) fL MCH 31.3 (27.0-33.0) pg MCHC 34.5 (31.0-35.0) g/dl RDW 14.4 (11.0-16.0) % Plt Count 132 L (160-400) X10*3/uL MPV 10.3 (9.4-12.3) fL Immature Gran % (Auto) 0.3 (0.0-0.4) % Neut % (Auto) 62.6 (45-73) % Lymph % (Auto) 20.2 (20-40) % [place] % (Auto) 11.9 H (2-11) % Eos % (Auto) 4.1 H (0-4) % Baso % (Auto) 0.9 (0-2) % Lymph # (Auto) 1.3 (1.2-4.9) X10*3/uL [place] # (Auto) 0.8 (0.1-1.2) X10*3/uL Eos # (Auto) 0.3 (0.0-0.4) X10*3/uL Baso # (Auto) 0.1 (0.0-0.2) X10*3/uL Abs Immat Gran (auto) 0.02 (0.00-0.03) X10*3/uL Absolute Neuts (auto) 4.0 (2.0-8.3) x10*3/uL Absolute Nucleated RBC 0.000 (0.0-0.012) X10*3/uL Nucleated RBC % (auto) 0.0 (0.0-0.2) /100WBC PT (9.9-13.0) SEC INR (0.9-1.1) Sodium 135 (135-145) mmol/L Potassium 4.6 (3.3-5.1) mmol/L Chloride 100 (96-108) mmol/L Carbon Dioxide 27 (22-29) mmol/L Anion Gap 13 (12-20) BUN 20 H (9-16) mg/dL Creatinine 1.77 H (0.5-1.4) mg/dL Estim Creat Clear Calc 39.8 Estimated GFR 29 Random Glucose 284 H (60-115) mg/dL Calcium 9.7 (8.4-10.2) mg/dL Total Bilirubin 2.4 H (0.0-1.0) mg/dL Direct Bilirubin 1.0 H (0.0-0.5) mg/dL AST 34 H (5-31) U/L ALT 17 (0-31) U/L Alkaline Phosphatase 102 (39-117) U/L Ammonia (13-55) umol/L Total Protein 7.3 (6.5-8.0) g/dL Albumin 3.5 (3.5-5.0) g/dL Urine Color Urine Appearance Urine pH (5.0-8.0) Ur Specific [place] (1.005-1.025) Urine Protein (NEG-TRACE) MG/DL Urine Glucose (UA) (NEG) MG/DL Urine Ketones (NEG) MG/DL Urine Blood (NEG) Urine Nitrite (NEG) Ur Leukocyte Esterase (NEG) Urine RBC (0) /HPF Urine WBC (0-4) /HPF Ur Squamous Epith Cells /LPF Urine Bacteria /LPF Ethyl Alcohol < 10 mg/dL 03/21/22 03/21/22 03/22/22 Range/Units 22:16 22:16 00:15 WBC (4.8-10.8) X10*3/uL RBC (4.20-5.50) X10*6/uL Hgb (12.0-16.0) g/dl Hct (37.0-47.0) % MCV (80.0-98.0) fL MCH (27.0-33.0) pg MCHC (31.0-35.0) g/dl RDW (11.0-16.0) % Plt Count (160-400) X10*3/uL MPV (9.4-12.3) fL Immature Gran % (Auto) (0.0-0.4) % Neut % (Auto) (45-73) % Lymph % (Auto) (20-40) % [place] % (Auto) (2-11) % Eos % (Auto) (0-4) % Baso % (Auto) (0-2) % Lymph # (Auto) (1.2-4.9) X10*3/uL [place] # (Auto) (0.1-1.2) X10*3/uL Eos # (Auto) (0.0-0.4) X10*3/uL Baso # (Auto) (0.0-0.2) X10*3/uL Abs Immat Gran (auto) (0.00-0.03) X10*3/uL Absolute Neuts (auto) (2.0-8.3) x10*3/uL Absolute Nucleated RBC (0.0-0.012) X10*3/uL Nucleated RBC % (auto) (0.0-0.2) /100WBC PT 32.4 H (9.9-13.0) SEC INR 2.8 H (0.9-1.1) Sodium (135-145) mmol/L Potassium (3.3-5.1) mmol/L Chloride (96-108) mmol/L Carbon Dioxide (22-29) mmol/L Anion Gap (12-20) BUN (9-16) mg/dL Creatinine (0.5-1.4) mg/dL Estim Creat Clear Calc Estimated GFR Random Glucose (60-115) mg/dL Calcium (8.4-10.2) mg/dL Total Bilirubin (0.0-1.0) mg/dL Direct Bilirubin (0.0-0.5) mg/dL AST (5-31) U/L ALT (0-31) U/L Alkaline Phosphatase (39-117) U/L Ammonia 35 (13-55) umol/L Total Protein (6.5-8.0) g/dL Albumin (3.5-5.0) g/dL Urine Color YELLOW Urine Appearance CLEAR Urine pH 6.0 (5.0-8.0) Ur Specific [place] 1.015 (1.005-1.025) Urine Protein NEG (NEG-TRACE) MG/DL Urine Glucose (UA) 100 H (NEG) MG/DL Urine Ketones NEG (NEG) MG/DL Urine Blood NEG (NEG) Urine Nitrite NEG (NEG) Ur Leukocyte Esterase TRACE H (NEG) Urine RBC 0-2 (0) /HPF Urine WBC 1-4 (0-4) /HPF Ur Squamous Epith Cells 1+ /LPF Urine Bacteria 1+ /LPF Ethyl Alcohol mg/dL Imaging Data CT scan - head: Radiologist's impression: IMPRESSION: No acute intracranial pathology. Discharge Plan Discharge Clinical Impression: Confusion, Cirrhosis of liver Patient Disposition: Home, Self-Care Instructions: Altered Mental Status (ED), Cirrhosis (ED) Prescriptions: No Action magnesium oxide 400 mg (241.3 mg magnesium) tablet 800 mg PO TID Qty: 540 3RF ferrous sulfate 325 mg (65 mg iron) tablet 325 mg PO BID Qty: 180 1RF furosemide 20 mg tablet 20 mg PO DAILY 30 Days Qty: 90 1RF spironolactone 100 mg tablet 100 mg PO DAILY Qty: 90 1RF insulin lispro [Humalog KwikPen Insulin] 100 unit/mL insulin pen See Protocol subcut TIDAC Protocol: Insulin Correction Scale Less than or equal to 110 ---- Give (units): 0 111 to 150 Give (units): 0 151 to 200 Give (units): 2 201 to 250 Give (units): 4 251 to 300 Give (units): 6 301 to 350 Give (units): 8 Greater than 350 Give (units): 10 Call MD if Blood Glucose > : 350 acetaminophen 325 mg Tablet 650 mg PO Q4H PRN (Reason: Pain) cholecalciferol (vitamin D3) [Vitamin D3] 25 mcg (1,000 unit) capsule 1 cap PO DAILY nystatin 100,000 unit/gram cream 1 appl topical BID Qty: 30 1RF metoprolol succinate 25 mg tablet extended release 24 hr 25 mg PO DAILY omeprazole 40 mg capsule,delayed release(DR/EC) 40 mg PO DAILY insulin glargine 100 unit/mL (3 mL) insulin pen 50 unit subcut BEDTIME lactulose 10 gram/15 mL solution 15 ml PO BID cyclosporine 0.05 % dropperette 1 drp ophthalmic (eye) BEDTIME clotrimazole-betamethasone 1-0.05 % cream 1 applic topical BID PRN (Reason: Rash) fluticasone propionate 250 mcg/actuation blister with device 1 inh inhalation BEDTIME lorazepam 0.5 mg tablet 0.5 mg PO BEDTIME rifaximin 550 mg tablet 550 mg PO BID lovastatin 40 mg tablet 40 mg PO BEDTIME metformin 500 mg tablet 500 mg PO DAILY warfarin 2 mg tablet 2 mg PO DAILY Protocol: Dose Management Condition: Monday (Week One) Dose/Route: 6 mg Instruction: 3 x 2 mg tablets Condition: Monday Dose/Route: 6 mg Instruction: 3 x 2 mg tablets Condition: Monday Dose/Route: 6 mg Instruction: 3 x 2 mg tablets Condition: Monday Dose/Route: 6 mg Instruction: 3 x 2 mg tablets Condition: Dose/Route: 6 mg Instruction: 3 x 2 mg tablets Condition: Monday Dose/Route: 6 mg Instruction: 3 x 2 mg tablets Condition: Monday Dose/Route: 6 mg Instruction: 3 x 2 mg tablets Condition: Monday (Week Two) Dose/Route: 6 mg Instruction: 3 x 2 mg tablets Condition: Monday Dose/Route: 6 mg Instruction: 3 x 2 mg tablets Condition: Monday Dose/Route: 6 mg Instruction: 3 x 2 mg tablets Condition: Monday Dose/Route: 6 mg Instruction: 3 x 2 mg tablets Condition: Dose/Route: 6 mg Instruction: 3 x 2 mg tablets Condition: Monday Dose/Route: 6 mg Instruction: 3 x 2 mg tablets Condition: Monday Dose/Route: 6 mg Instruction: 3 x 2 mg tablets Protocol Text: Adjustment Start Date: Monday03/11/22 INR Value: 2.4 INR Date: 03/11/22 Recheck Date: 03/21/22 silver sulfadiazine 1 % cream topical BID levothyroxine [Synthroid] 112 mcg tablet 112 mcg PO DAILY Trulicity 3 mg/0.5 mL pen injector subcut QWEEK Referrals: Tony Toure MD [Primary Care Provider] - 5 days
[2022-03-21 22:30] LABS: Ammonia 35 umol/L (13-55)
[2022-03-21 22:37] LABS: INTERNATIONAL NORM RATIO 2.8 (0.9-1.1); Prothrombin Time 32.4 SEC (9.9-13.0)
[2022-03-21 22:48] LABS: Alanine Aminotransferase 17 U/L (0-31); Albumin Level 3.5 g/dL (3.5-5.0); Alkaline Phosphatase 102 U/L (39-117); Aspartate Amino Transferase 34 U/L (5-31); Bilirubin Total 2.4 mg/dL (0.0-1.0); Total Protein 7.3 g/dL (6.5-8.0)
[2022-03-21 22:55] VITALS: BP 146/63; PULSE 69; RESP 18; TEMP 36.9; O2SAT 99
[2022-03-22 00:23] LABS: Appearance Urine CLEAR; Color Urine YELLOW; Glucose Urine UA 100 MG/DL (NEG); Leukocyte Esterase Urine TRACE (NEG); Nitrite Urine NEG (NEG); Specific Gravity - Urine 1.015 (1.005-1.025); Urine Blood NEG (NEG); Urine Ketones NEG (NEG); Urine Protein NEG (NEG-TRACE)
[2022-03-22 00:31] LABS: Bacteria Urine 1+ /LPF; RBC Urine 0-2 /HPF (0); Squamous Epithelial Cell Urine 1+ /LPF
== END 2022-03-22 01:08 | disposition home or self-care (01) ==
PROVIDERS: Emergency Provider Emergency Medicine; PCP Internal Medicine
DX: R41.0 Disorientation, unspecified (principal); K74.60 Unspecified cirrhosis of liver; R51.9 Headache, unspecified; Z79.899 Other long term (current) drug therapy; Z79.01 Long term (current) use of anticoagulants
CPT/HCPCS: 36415; 70450; 80048; 80076; 81001; 82077; 82140; 85025; 85610; 99283; Q3014

== ENCOUNTER → 2022-03-22 10:22 | Outpatient (BNVA) | payer MEDICARE, SELFPAY | PROVIDERS: PCP Internal Medicine; Visit Provider Internal Medicine | DX: I48.0 Paroxysmal atrial fibrillation (principal); Z79.01 Long term (current) use of anticoagulants; Z51.81 Encounter for therapeutic drug level monitoring | CPT/HCPCS: Q3014 ==

== ENCOUNTER → 2022-03-25 13:19 | Outpatient (BNVA) | payer MEDICARE, SELFPAY | PROVIDERS: PCP Internal Medicine; Visit Provider Internal Medicine | DX: I48.0 Paroxysmal atrial fibrillation (principal); Z51.81 Encounter for therapeutic drug level monitoring; Z79.01 Long term (current) use of anticoagulants | CPT/HCPCS: 85610; 99211 ==

== ENCOUNTER → 2022-03-31 14:26 | Outpatient (BNVA) | payer MEDICARE, SELFPAY | PROVIDERS: PCP Internal Medicine; Visit Provider Internal Medicine | DX: K74.60 Unspecified cirrhosis of liver (principal); R18.8 Other ascites; K21.9 Gastro-esophageal reflux disease without esophagitis; I85.00 Esophageal varices without bleeding; I81 Portal vein thrombosis; D50.9 Iron deficiency anemia, unspecified; Z86.010 Personal history of colon polyps; I48.0 Paroxysmal atrial fibrillation; Z79.01 Long term (current) use of anticoagulants; Z51.81 Encounter for therapeutic drug level monitoring | CPT/HCPCS: 85610; 99211; 99212 ==

== ENCOUNTER → 2022-04-14 13:52 | Outpatient (BNVA) | payer MEDICARE, SELFPAY | PROVIDERS: PCP Internal Medicine; Visit Provider Internal Medicine | DX: I48.0 Paroxysmal atrial fibrillation (principal); Z51.81 Encounter for therapeutic drug level monitoring; Z79.01 Long term (current) use of anticoagulants | CPT/HCPCS: 85610; 99211 ==

== ENCOUNTER 2022-04-16 13:59 | Outpatient (REF) | payer MEDICARE, SELFPAY ==
[2022-04-16 15:38] LABS: Alanine Aminotransferase 11 U/L (0-31); Albumin Level 2.9 g/dL (3.5-5.0); Alkaline Phosphatase 97 U/L (39-117); Anion Gap 12 (12-20); Aspartate Amino Transferase 22 U/L (5-31); Bilirubin Total 2.4 mg/dL (0.0-1.0); Blood Urea Nitrogen 13 mg/dL (9-16); Calcium 9.2 mg/dL (8.4-10.2); Carbon Dioxide 28 mmol/L (22-29); Chloride 96 mmol/L (96-108); Estimated Glomerular Filt Rate 38; Glucose Random 301 mg/dL (60-115); Sodium 132 mmol/L (135-145); Total Protein 6.4 g/dL (6.5-8.0)
== END 2022-04-16 14:00 | disposition home or self-care (01) ==
LOC: HO.HMGCLDS 13:59
PROVIDERS: PCP Internal Medicine; Visit Provider Physician Assistant
DX: N18.31 Chronic kidney disease, stage 3a (principal)
CPT/HCPCS: 36415; 80053

== ENCOUNTER → 2022-04-18 13:47 | Outpatient (REF) | payer MEDICARE, SELFPAY ==
--- NOTE | 2022-04-18 13:49 | HM_ITS ---
TEST PERFORMED: Cardiac event monitoring. REQUESTING PHYSICIAN: Dr. Bach. INDICATION: Paroxysmal atrial fibrillation. ENROLLMENT PERIOD: 04/18/2022 to 05/10/2022, 22 days. FINDINGS: There is only strip available for review from the above time. That strip shows atrial flutter at a rate of 117/min. No other strips are available for review. Hence, baseline rhythm is unclear. CONCLUSION: As above, only one strip available for review and that shows atrial flutter at 117/min. No other information available. No patient symptoms documented. Evertete Davila MD HS/MODL / [id number] MTDD
== END ==
LOC: HO.CARD 13:47
PROVIDERS: PCP Internal Medicine; Visit Provider Internal Medicine Cardiovascular Disease
DX: I48.0 Paroxysmal atrial fibrillation (principal)
CPT/HCPCS: 85610; 93270; 99211

== ENCOUNTER → 2022-05-02 13:49 | Outpatient (BNVA) | payer MEDICARE, SELFPAY | PROVIDERS: PCP Internal Medicine; Visit Provider Internal Medicine | DX: I48.0 Paroxysmal atrial fibrillation (principal); Z79.01 Long term (current) use of anticoagulants; Z51.81 Encounter for therapeutic drug level monitoring | CPT/HCPCS: 85610; 99211 ==

== ENCOUNTER → 2022-05-09 13:51 | Outpatient (BNVA) | payer MEDICARE, SELFPAY | PROVIDERS: PCP Internal Medicine; Visit Provider Internal Medicine | DX: I48.0 Paroxysmal atrial fibrillation (principal); Z51.81 Encounter for therapeutic drug level monitoring; Z79.01 Long term (current) use of anticoagulants | CPT/HCPCS: 85610; 99211 ==

== ENCOUNTER → 2022-05-23 13:58 | Outpatient (BNVA) | payer MEDICARE, SELFPAY | PROVIDERS: PCP Internal Medicine; Visit Provider Internal Medicine | DX: I48.0 Paroxysmal atrial fibrillation (principal); Z51.81 Encounter for therapeutic drug level monitoring; Z79.01 Long term (current) use of anticoagulants | CPT/HCPCS: 85610; 99211 ==

== ENCOUNTER → 2022-05-31 13:49 | Outpatient (BNVA) | payer MEDICARE, SELFPAY | PROVIDERS: PCP Internal Medicine; Visit Provider Internal Medicine | DX: I48.0 Paroxysmal atrial fibrillation (principal); Z79.01 Long term (current) use of anticoagulants; Z51.81 Encounter for therapeutic drug level monitoring | CPT/HCPCS: 85610; 99211 ==

== ENCOUNTER 2022-06-01 14:36 | Outpatient (REF) | payer MEDICARE, SELFPAY ==
[2022-06-01 16:38] LABS: Hemoglobin 12.5 g/dl (12.0-16.0); Imm Gran Abs Auto 0.02 X10*3/uL (0.00-0.03); Imm Gran Pct Auto 0.3 % (0.0-0.4); PLT CLUMP 1; SCAN SMEAR FLAG 1
[2022-06-01 16:40] LABS: Basophils Absolute Auto 0.1 X10*3/uL (0.0-0.2); Basophils Percent Auto 1.1 % (0-2); Eosinophils Absolute Auto 0.3 X10*3/uL (0.0-0.4); Eosinophils Percent Auto 4.4 % (0-4); Hematocrit 36.6 % (37.0-47.0); Lymphocytes Absolute Auto 1.2 X10*3/uL (1.2-4.9); Lymphocytes Percent Auto 17.7 % (20-40); Mean Corpuscular HGB Conc 34.2 g/dl (31.0-35.0); Mean Corpuscular Hemoglobin 30.8 pg (27.0-33.0); Mean Corpuscular Volume 90.1 fL (80.0-98.0); Monocytes Absolute Auto 0.6 X10*3/uL (0.1-1.2); Monocytes Percent Auto 8.3 % (2-11); Neutrophils Absolute Auto 4.5 x10*3/uL (2.0-8.3); Neutrophils Percent Auto 68.2 % (45-73); Red Blood Count 4.06 X10*6/uL (4.20-5.50); Red Cell Distribution Width 14.2 % (11.0-16.0)
[2022-06-01 16:45] LABS: MANUAL DIFF FLAG NO; Platelet Count 125 X10*3/uL (160-400); White Blood Count 6.6 X10*3/uL (4.8-10.8)
[2022-06-01 16:51] LABS: Alanine Aminotransferase 15 U/L (0-31); Albumin Level 2.9 g/dL (3.5-5.0); Alkaline Phosphatase 99 U/L (39-117); Anion Gap 13 (12-20); Aspartate Amino Transferase 26 U/L (5-31); Bilirubin Total 2.1 mg/dL (0.0-1.0); Blood Urea Nitrogen 12 mg/dL (9-16); Calcium 8.7 mg/dL (8.4-10.2); Carbon Dioxide 27 mmol/L (22-29); Chloride 96 mmol/L (96-108); Estimated Glomerular Filt Rate 42; Glucose Random 321 mg/dL (60-115); Potassium 4.1 mmol/L (3.3-5.1); Sodium 132 mmol/L (135-145); Total Protein 6.3 g/dL (6.5-8.0)
[2022-06-01 16:56] LABS: INTERNATIONAL NORM RATIO 2.9 (0.9-1.1); Prothrombin Time 35.4 SEC (10.0-13.1)
== END 2022-06-01 14:37 | disposition home or self-care (01) ==
LOC: HO.HMGCLR 14:36
PROVIDERS: PCP Internal Medicine; Visit Provider Internal Medicine Gastroenterology
DX: K75.81 Nonalcoholic steatohepatitis (NASH) (principal); K74.60 Unspecified cirrhosis of liver
CPT/HCPCS: 36415; 80053; 85025; 85610

== ENCOUNTER → 2022-06-07 07:20 | Outpatient (REF) | payer MEDICARE, SELFPAY ==
--- NOTE | 2022-06-07 07:22 | HM_ITS ---
Conclusion: 1. Patient was monitored for total period of 3 days 2. Baseline with atrial fibrillation with average heart of 103 beats per minute 3. Very rare PVCs noted 4. No significant pauses noted 5. No patient reported symptoms MTDD
== END ==
LOC: HO.CARD 07:20
PROVIDERS: PCP Internal Medicine; Visit Provider Internal Medicine Cardiovascular Disease
DX: I48.0 Paroxysmal atrial fibrillation (principal); Z51.81 Encounter for therapeutic drug level monitoring; Z79.01 Long term (current) use of anticoagulants
CPT/HCPCS: 85610; 93242; 99211

== ENCOUNTER 2022-06-08 13:23 | Outpatient (REF) | payer MEDICARE, SELFPAY ==
[2022-06-08 16:59] LABS: Estimated Average Glucose 194 mg/dL; Hemoglobin A1c % 8.4 %
[2022-06-08 17:04] LABS: Alanine Aminotransferase 14 U/L (0-31); Albumin Level 2.8 g/dL (3.5-5.0); Alkaline Phosphatase 106 U/L (39-117); Anion Gap 14 (12-20); Aspartate Amino Transferase 27 U/L (5-31); Blood Urea Nitrogen 13 mg/dL (9-16); Calcium 9.4 mg/dL (8.4-10.2); Carbon Dioxide 28 mmol/L (22-29); Chloride 98 mmol/L (96-108); Chloride 99 mmol/L (96-108); Estimated Glomerular Filt Rate 41; Glucose Random 236 mg/dL (60-115); Glucose Random 243 mg/dL (60-115); Potassium 4.1 mmol/L (3.3-5.1); Sodium 136 mmol/L (135-145); Sodium 137 mmol/L (135-145); Total Protein 6.3 g/dL (6.5-8.0)
[2022-06-08 17:21] LABS: Creatinine Urine 206.09 mg/dL; Microalbum/Creatinine Ratio Ur 3.8 ug/mg cr
[2022-06-08 17:25] LABS: TSH reflex Free T4 1.39 uIU/mL (0.32-4.0)
[2022-06-10 03:48] LABS: LDL Cholesterol Direct 84 mg/dL (<100)
== END 2022-06-08 13:24 | disposition home or self-care (01) ==
LOC: HO.HMGCLR 13:23
PROVIDERS: Absent Provider Physician Assistant; PCP Internal Medicine; Visit Provider Internal Medicine Gastroenterology
DX: E11.42 Type 2 diabetes mellitus with diabetic polyneuropathy (principal); E03.9 Hypothyroidism, unspecified
CPT/HCPCS: 36415; 80048; 80053; 82043; 83036; 83721; 84443; 84450; 84460

== ENCOUNTER 2022-06-14 13:39 | Outpatient (REF) | payer MEDICARE, SELFPAY | END 2022-06-14 13:40 | disposition home or self-care (01) | LOC: HO.CT 13:39 | PROVIDERS: PCP Internal Medicine; Visit Provider Internal Medicine Gastroenterology | DX: Z13.89 Encounter for screening for other disorder (principal) ==

== ENCOUNTER 2022-06-15 13:24 | Outpatient (REF) | payer MEDICARE, SELFPAY ==
[2022-06-15 16:44] LABS: MANUAL DIFF FLAG NO
[2022-06-15 16:48] LABS: Basophils Absolute Auto 0.1 X10*3/uL (0.0-0.2); Basophils Percent Auto 1.3 % (0-2); Eosinophils Absolute Auto 0.3 X10*3/uL (0.0-0.4); Eosinophils Percent Auto 4.5 % (0-4); Hematocrit 39.9 % (37.0-47.0); Hemoglobin 13.5 g/dl (12.0-16.0); Imm Gran Abs Auto 0.03 X10*3/uL (0.00-0.03); Imm Gran Pct Auto 0.4 % (0.0-0.4); Lymphocytes Absolute Auto 1.6 X10*3/uL (1.2-4.9); Mean Corpuscular HGB Conc 33.8 g/dl (31.0-35.0); Mean Corpuscular Hemoglobin 30.6 pg (27.0-33.0); Mean Corpuscular Volume 90.5 fL (80.0-98.0); Mean Platelet Volume 11.2 fL (9.4-12.3); Monocytes Absolute Auto 0.7 X10*3/uL (0.1-1.2); Monocytes Percent Auto 9.8 % (2-11); Neutrophils Absolute Auto 4.4 x10*3/uL (2.0-8.3); Platelet Count 159 X10*3/uL (160-400); Red Blood Count 4.41 X10*6/uL (4.20-5.50)
[2022-06-15 16:55] LABS: INTERNATIONAL NORM RATIO 2.7 (0.9-1.1); Prothrombin Time 32.8 SEC (10.0-13.1)
[2022-06-15 17:04] LABS: Alanine Aminotransferase 15 U/L (0-31); Albumin Level 3.1 g/dL (3.5-5.0); Alkaline Phosphatase 106 U/L (39-117); Anion Gap 17 (12-20); Aspartate Amino Transferase 30 U/L (5-31); Bilirubin Total 2.5 mg/dL (0.0-1.0); Blood Urea Nitrogen 16 mg/dL (9-16); Calcium 9.6 mg/dL (8.4-10.2); Carbon Dioxide 25 mmol/L (22-29); Chloride 97 mmol/L (96-108); Estimated Glomerular Filt Rate 32; Glucose Random 307 mg/dL (60-115); Potassium 4.5 mmol/L (3.3-5.1); Sodium 134 mmol/L (135-145); Total Protein 6.8 g/dL (6.5-8.0)
== END 2022-06-15 13:25 | disposition home or self-care (01) ==
LOC: HO.HMGCLR 13:24
PROVIDERS: PCP Internal Medicine; Visit Provider Internal Medicine Gastroenterology
DX: K75.81 Nonalcoholic steatohepatitis (NASH) (principal); K74.60 Unspecified cirrhosis of liver
CPT/HCPCS: 36415; 80053; 85025; 85610

== ENCOUNTER → 2022-06-21 13:55 | Outpatient (BNVA) | payer MEDICARE, SELFPAY | PROVIDERS: PCP Internal Medicine; Visit Provider Internal Medicine | DX: I48.0 Paroxysmal atrial fibrillation (principal); Z79.01 Long term (current) use of anticoagulants; Z51.81 Encounter for therapeutic drug level monitoring | CPT/HCPCS: 85610; 99211 ==

== ENCOUNTER 2022-06-22 12:35 | Outpatient (REF) | payer MEDICARE, SELFPAY ==
[2022-06-22 13:59] LABS: MANUAL DIFF FLAG NO
[2022-06-22 14:02] LABS: Basophils Absolute Auto 0.1 X10*3/uL (0.0-0.2); Basophils Percent Auto 1.2 % (0-2); Eosinophils Absolute Auto 0.3 X10*3/uL (0.0-0.4); Eosinophils Percent Auto 4.6 % (0-4); Hematocrit 38.9 % (37.0-47.0); Hemoglobin 13.4 g/dl (12.0-16.0); Imm Gran Abs Auto 0.02 X10*3/uL (0.00-0.03); Imm Gran Pct Auto 0.3 % (0.0-0.4); Lymphocytes Absolute Auto 1.3 X10*3/uL (1.2-4.9); Mean Corpuscular HGB Conc 34.4 g/dl (31.0-35.0); Mean Corpuscular Hemoglobin 31.2 pg (27.0-33.0); Mean Corpuscular Volume 90.7 fL (80.0-98.0); Mean Platelet Volume 11.2 fL (9.4-12.3); Monocytes Absolute Auto 0.5 X10*3/uL (0.1-1.2); Neutrophils Absolute Auto 4.3 x10*3/uL (2.0-8.3); Neutrophils Percent Auto 65.9 % (45-73); Platelet Count 161 X10*3/uL (160-400); Red Blood Count 4.29 X10*6/uL (4.20-5.50); Red Cell Distribution Width 15.4 % (11.0-16.0); White Blood Count 6.5 X10*3/uL (4.8-10.8)
[2022-06-22 14:08] LABS: INTERNATIONAL NORM RATIO 2.9 (0.9-1.1); Prothrombin Time 34.7 SEC (10.0-13.1)
[2022-06-22 17:31] LABS: Alanine Aminotransferase 16 U/L (0-31); Alkaline Phosphatase 106 U/L (39-117); Anion Gap 17 (12-20); Aspartate Amino Transferase 29 U/L (5-31); Bilirubin Total 2.3 mg/dL (0.0-1.0); Blood Urea Nitrogen 19 mg/dL (9-16); Calcium 9.2 mg/dL (8.4-10.2); Carbon Dioxide 23 mmol/L (22-29); Chloride 96 mmol/L (96-108); Estimated Glomerular Filt Rate 34; Glucose Random 416 mg/dL (60-115); Potassium 4.4 mmol/L (3.3-5.1); Sodium 132 mmol/L (135-145); Total Protein 6.6 g/dL (6.5-8.0)
== END 2022-06-22 12:36 | disposition home or self-care (01) ==
LOC: HO.HMGCLR 12:35
PROVIDERS: PCP Internal Medicine; Visit Provider Internal Medicine Gastroenterology
DX: K75.81 Nonalcoholic steatohepatitis (NASH) (principal); K74.60 Unspecified cirrhosis of liver
CPT/HCPCS: 36415; 80053; 85025; 85610

== ENCOUNTER 2022-06-23 13:52 | Outpatient (REF) | payer MEDICARE, SELFPAY ==
--- NOTE | ~2022-06-23 | CT_ITS ---
EXAMINATION: CT ABDOMEN AND PELVIS WITH CONTRAST CLINICAL INFORMATION: Cirrhosis, fatty liver. COMPARISON: CT abdomen/pelvis 07/27/2021. TECHNIQUE: Multidetector volumetric images were obtained from the superior aspect of the liver through the pubic symphysis following administration 85 mL of Omnipaque 350 intravenous contrast. Sagittal and coronal reformatted images were obtained on the technologist's workstation. Oral contrast: No. This CT examination was performed using dose optimization techniques as appropriate, variously including the following: *Automated exposure control *Adjustment of mA and/or kV according to patient size (this includes techniques or standardized protocols for targeted exams where dose is matched to indication/reason for exam; i.e. extremities or head) *Use of iterative reconstruction technique DLP: 611 mGy-cm FINDINGS: LUNG BASES: The lung bases are clear. The heart size is normal. LIVER, GALLBLADDER, AND BILIARY TREE: The liver is normal in size, shape, and attenuation. No focal hepatic lesion or biliary ductal dilatation is present. There are multiple radiopaque gallstones without wall thickening. PANCREAS: Unremarkable. SPLEEN: There is a transverse thick band of hypodensity in the mid spleen, likely old splenic infarct. The spleen measures 14 cm. ADRENAL GLANDS: There is a hypodense nodule right adrenal gland measuring 2.6 x 2.1 cm and 37 Hounsfield units. There is a 1.1 x 0.8 cm nodule left adrenal gland. KIDNEYS AND URETERS: There are small lobulated kidneys without any radiopaque calculi or hydronephrosis. BLADDER: Unremarkable. GASTROINTESTINAL TRACT: There is scattered stool and gas seen throughout the colon without distention. The appendix is normal caliber. The small bowel loops opacified oral contrast and are normal caliber. The stomach is distended with recently ingested oral contrast and food. Mild mural thickening of the distal esophagus GE junction is noted. ABDOMINAL WALL: No significant hernia is appreciated. LYMPH NODES: Normal. VASCULAR: The abdominal aorta is normal caliber. There are left-sided retroperitoneal and pelvic varices. The largest varix in the left retroperitoneum measures approximately 10 cm long, 5.20 cm wide and 4.3 cm in AP dimension. The portal vein is widely patent without any filling defect, however, the portal vein caliber is small compared to SMV and IMV. PELVIC VISCERA: There is a 2.7 x 2.7 cm hypodense lesion in the left adnexa measuring 30 Hounsfield units, likely ovarian or left paraovarian complex cyst. The uterus is not visualized. OSSEOUS STRUCTURES: No aggressive lytic or sclerotic process seen. There is vacuum disc phenomena L5-S1 disc level. 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 Spleen measures 14 cm. 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 The portal vein appears small in caliber compared to SMV and IMV. Cholelithiasis without wall thickening. Lobulated small kidneys with no radiopaque calculi or hydronephrosis. Fleischner guidelines were followed.
== END 2022-06-23 13:53 | disposition home or self-care (01) ==
LOC: HO.CT 13:52
PROVIDERS: PCP Internal Medicine; Visit Provider Internal Medicine Gastroenterology
DX: K75.81 Nonalcoholic steatohepatitis (NASH) (principal); K74.60 Unspecified cirrhosis of liver
CPT/HCPCS: 74177

== ENCOUNTER → 2022-06-27 15:04 | Outpatient (BNVA) | payer MEDICARE, SELFPAY | PROVIDERS: PCP Internal Medicine; Visit Provider Internal Medicine Cardiovascular Disease | DX: I48.19 Other persistent atrial fibrillation (principal); I10 Essential (primary) hypertension; K74.60 Unspecified cirrhosis of liver; R18.8 Other ascites; Z79.01 Long term (current) use of anticoagulants; Z79.899 Other long term (current) drug therapy | CPT/HCPCS: 99212 ==

== ENCOUNTER 2022-06-29 13:11 | Outpatient (REF) | payer MEDICARE, SELFPAY ==
[2022-06-29 14:16] LABS: MANUAL DIFF FLAG NO
[2022-06-29 14:25] LABS: Basophils Absolute Auto 0.1 X10*3/uL (0.0-0.2); Basophils Percent Auto 0.8 % (0-2); Eosinophils Absolute Auto 0.3 X10*3/uL (0.0-0.4); Eosinophils Percent Auto 3.5 % (0-4); Hematocrit 39.1 % (37.0-47.0); Hemoglobin 13.3 g/dl (12.0-16.0); Imm Gran Abs Auto 0.02 X10*3/uL (0.00-0.03); Imm Gran Pct Auto 0.3 % (0.0-0.4); Lymphocytes Absolute Auto 1.3 X10*3/uL (1.2-4.9); Lymphocytes Percent Auto 17.7 % (20-40); Mean Corpuscular Hemoglobin 30.9 pg (27.0-33.0); Mean Corpuscular Volume 90.7 fL (80.0-98.0); Mean Platelet Volume 11.5 fL (9.4-12.3); Monocytes Absolute Auto 0.8 X10*3/uL (0.1-1.2); Monocytes Percent Auto 10.5 % (2-11); Neutrophils Absolute Auto 4.8 x10*3/uL (2.0-8.3); Neutrophils Percent Auto 67.2 % (45-73); Platelet Count 143 X10*3/uL (160-400); Red Blood Count 4.31 X10*6/uL (4.20-5.50); White Blood Count 7.2 X10*3/uL (4.8-10.8)
[2022-06-29 14:38] LABS: INTERNATIONAL NORM RATIO 3.1 (0.9-1.1); Prothrombin Time 37.4 SEC (10.0-13.1)
[2022-06-29 15:06] LABS: Alanine Aminotransferase 14 U/L (0-31); Alkaline Phosphatase 111 U/L (39-117); Anion Gap 14 (12-20); Aspartate Amino Transferase 26 U/L (5-31); Bilirubin Total 3.6 mg/dL (0.0-1.0); Blood Urea Nitrogen 18 mg/dL (9-16); Calcium 9.5 mg/dL (8.4-10.2); Carbon Dioxide 27 mmol/L (22-29); Chloride 93 mmol/L (96-108); Estimated Glomerular Filt Rate 30; Glucose Random 468 mg/dL (60-115); Potassium 4.2 mmol/L (3.3-5.1); Sodium 130 mmol/L (135-145); Total Protein 6.6 g/dL (6.5-8.0)
== END 2022-06-29 13:12 | disposition home or self-care (01) ==
LOC: HO.LABR 13:11
PROVIDERS: Absent Provider Internal Medicine; PCP Internal Medicine; Visit Provider Internal Medicine Gastroenterology
DX: E83.42 Hypomagnesemia (principal); D35.00 Benign neoplasm of unspecified adrenal gland; I12.9 Hypertensive chronic kidney disease with stage 1 through stage 4 chronic kidney disease, or unspecified chronic kidney disease; N18.31 Chronic kidney disease, stage 3a; K75.81 Nonalcoholic steatohepatitis (NASH); K74.60 Unspecified cirrhosis of liver
CPT/HCPCS: 36415; 80053; 83735; 85025; 85610

== ENCOUNTER → 2022-07-05 13:51 | Outpatient (BNVA) | payer MEDICARE, SELFPAY | PROVIDERS: PCP Internal Medicine; Visit Provider Internal Medicine | DX: I48.0 Paroxysmal atrial fibrillation (principal); Z79.01 Long term (current) use of anticoagulants; Z51.81 Encounter for therapeutic drug level monitoring | CPT/HCPCS: 85610; 99211 ==

== ENCOUNTER 2022-07-07 13:53 | Outpatient (REF) | payer MEDICARE, SELFPAY ==
[2022-07-07 16:52] LABS: MANUAL DIFF FLAG NO
[2022-07-07 16:58] LABS: Basophils Absolute Auto 0.1 X10*3/uL (0.0-0.2); Basophils Percent Auto 1.1 % (0-2); Eosinophils Absolute Auto 0.3 X10*3/uL (0.0-0.4); Eosinophils Percent Auto 4.3 % (0-4); Hematocrit 37.9 % (37.0-47.0); Hemoglobin 13.1 g/dl (12.0-16.0); Imm Gran Abs Auto 0.03 X10*3/uL (0.00-0.03); Imm Gran Pct Auto 0.4 % (0.0-0.4); Lymphocytes Absolute Auto 1.3 X10*3/uL (1.2-4.9); Lymphocytes Percent Auto 17.5 % (20-40); Mean Corpuscular HGB Conc 34.6 g/dl (31.0-35.0); Mean Corpuscular Hemoglobin 31.1 pg (27.0-33.0); Mean Platelet Volume 11.1 fL (9.4-12.3); Monocytes Absolute Auto 0.5 X10*3/uL (0.1-1.2); Monocytes Percent Auto 7.3 % (2-11); Neutrophils Percent Auto 69.4 % (45-73); Platelet Count 153 X10*3/uL (160-400); Red Blood Count 4.21 X10*6/uL (4.20-5.50); Red Cell Distribution Width 14.8 % (11.0-16.0); White Blood Count 7.1 X10*3/uL (4.8-10.8)
[2022-07-07 17:02] LABS: INTERNATIONAL NORM RATIO 3.2 (0.9-1.1); Prothrombin Time 38.2 SEC (10.0-13.1)
[2022-07-07 18:32] LABS: Alanine Aminotransferase 13 U/L (0-31); Albumin Level 2.8 g/dL (3.5-5.0); Alkaline Phosphatase 113 U/L (39-117); Anion Gap 16 (12-20); Aspartate Amino Transferase 25 U/L (5-31); Bilirubin Total 2.7 mg/dL (0.0-1.0); Blood Urea Nitrogen 18 mg/dL (9-16); Calcium 9.3 mg/dL (8.4-10.2); Carbon Dioxide 26 mmol/L (22-29); Chloride 91 mmol/L (96-108); Estimated Glomerular Filt Rate 33; Glucose Random 351 mg/dL (60-115); Sodium 129 mmol/L (135-145); Total Protein 6.3 g/dL (6.5-8.0)
== END 2022-07-07 13:54 | disposition home or self-care (01) ==
LOC: HO.LABR 13:53
PROVIDERS: PCP Internal Medicine; Visit Provider Internal Medicine Gastroenterology
DX: K75.81 Nonalcoholic steatohepatitis (NASH) (principal); K74.60 Unspecified cirrhosis of liver
CPT/HCPCS: 36415; 80053; 85025; 85610

== ENCOUNTER 2022-07-12 12:54 | Outpatient (REF) | payer MEDICARE, SELFPAY ==
[2022-07-12 14:23] LABS: MANUAL DIFF FLAG NO
[2022-07-12 14:27] LABS: Basophils Absolute Auto 0.1 X10*3/uL (0.0-0.2); Basophils Percent Auto 1.1 % (0-2); Eosinophils Absolute Auto 0.3 X10*3/uL (0.0-0.4); Eosinophils Percent Auto 3.9 % (0-4); Hematocrit 38.1 % (37.0-47.0); Hemoglobin 13.1 g/dl (12.0-16.0); Imm Gran Abs Auto 0.03 X10*3/uL (0.00-0.03); Imm Gran Pct Auto 0.5 % (0.0-0.4); Lymphocytes Absolute Auto 1.3 X10*3/uL (1.2-4.9); Lymphocytes Percent Auto 19.6 % (20-40); Mean Corpuscular HGB Conc 34.4 g/dl (31.0-35.0); Mean Corpuscular Volume 90.1 fL (80.0-98.0); Mean Platelet Volume 10.9 fL (9.4-12.3); Monocytes Absolute Auto 0.7 X10*3/uL (0.1-1.2); Monocytes Percent Auto 9.8 % (2-11); Neutrophils Absolute Auto 4.3 x10*3/uL (2.0-8.3); Neutrophils Percent Auto 65.1 % (45-73); Platelet Count 149 X10*3/uL (160-400); Red Blood Count 4.23 X10*6/uL (4.20-5.50); Red Cell Distribution Width 14.7 % (11.0-16.0); White Blood Count 6.6 X10*3/uL (4.8-10.8)
[2022-07-12 14:33] LABS: INTERNATIONAL NORM RATIO 3.4 (0.9-1.1); Prothrombin Time 41.3 SEC (10.0-13.1)
[2022-07-12 15:05] LABS: Alanine Aminotransferase 15 U/L (0-31); Albumin Level 2.9 g/dL (3.5-5.0); Alkaline Phosphatase 114 U/L (39-117); Anion Gap 17 (12-20); Aspartate Amino Transferase 27 U/L (5-31); Bilirubin Total 2.1 mg/dL (0.0-1.0); Blood Urea Nitrogen 17 mg/dL (9-16); Calcium 9.2 mg/dL (8.4-10.2); Carbon Dioxide 28 mmol/L (22-29); Chloride 93 mmol/L (96-108); Estimated Glomerular Filt Rate 28; Potassium 4.7 mmol/L (3.3-5.1); Sodium 133 mmol/L (135-145); Total Protein 6.5 g/dL (6.5-8.0)
[2022-07-12 15:42] LABS: Glucose Random 447 mg/dL (60-115)
== END 2022-07-12 12:55 | disposition home or self-care (01) ==
LOC: HO.HMGCLR 12:54
PROVIDERS: PCP Internal Medicine; Visit Provider Internal Medicine Gastroenterology
DX: I48.0 Paroxysmal atrial fibrillation (principal); Z51.81 Encounter for therapeutic drug level monitoring; Z79.01 Long term (current) use of anticoagulants; K75.81 Nonalcoholic steatohepatitis (NASH); K74.60 Unspecified cirrhosis of liver
CPT/HCPCS: 36415; 80053; 85025; 85610; 99211

== ENCOUNTER 2022-07-19 13:15 | Outpatient (REF) | payer MEDICARE, SELFPAY ==
[2022-07-19 16:35] LABS: MANUAL DIFF FLAG NO
[2022-07-19 16:47] LABS: Basophils Absolute Auto 0.1 X10*3/uL (0.0-0.2); Basophils Percent Auto 1.1 % (0-2); Eosinophils Absolute Auto 0.3 X10*3/uL (0.0-0.4); Eosinophils Percent Auto 3.9 % (0-4); Hematocrit 37.9 % (37.0-47.0); Hemoglobin 12.9 g/dl (12.0-16.0); INTERNATIONAL NORM RATIO 4.5 (0.9-1.1); Imm Gran Abs Auto 0.02 X10*3/uL (0.00-0.03); Imm Gran Pct Auto 0.3 % (0.0-0.4); Lymphocytes Absolute Auto 1.5 X10*3/uL (1.2-4.9); Lymphocytes Percent Auto 23.2 % (20-40); Mean Corpuscular Hemoglobin 30.9 pg (27.0-33.0); Mean Corpuscular Volume 90.9 fL (80.0-98.0); Monocytes Absolute Auto 0.6 X10*3/uL (0.1-1.2); Monocytes Percent Auto 8.9 % (2-11); Neutrophils Percent Auto 62.6 % (45-73); Platelet Count 145 X10*3/uL (160-400); Red Blood Count 4.17 X10*6/uL (4.20-5.50); Red Cell Distribution Width 14.7 % (11.0-16.0); White Blood Count 6.4 X10*3/uL (4.8-10.8)
[2022-07-19 17:01] LABS: Alanine Aminotransferase 15 U/L (0-31); Albumin Level 2.8 g/dL (3.5-5.0); Alkaline Phosphatase 105 U/L (39-117); Anion Gap 13 (12-20); Aspartate Amino Transferase 27 U/L (5-31); Bilirubin Total 2.5 mg/dL (0.0-1.0); Blood Urea Nitrogen 16 mg/dL (9-16); Calcium 9.2 mg/dL (8.4-10.2); Carbon Dioxide 27 mmol/L (22-29); Chloride 97 mmol/L (96-108); Estimated Glomerular Filt Rate 36; Glucose Random 287 mg/dL (60-115); Potassium 4.2 mmol/L (3.3-5.1); Sodium 133 mmol/L (135-145); Total Protein 6.2 g/dL (6.5-8.0)
== END 2022-07-19 13:16 | disposition home or self-care (01) ==
LOC: HO.HMGCLR 13:15
PROVIDERS: PCP Internal Medicine; Visit Provider Internal Medicine Gastroenterology
DX: I48.0 Paroxysmal atrial fibrillation (principal); K75.81 Nonalcoholic steatohepatitis (NASH); K74.60 Unspecified cirrhosis of liver; Z51.81 Encounter for therapeutic drug level monitoring; Z79.01 Long term (current) use of anticoagulants
CPT/HCPCS: 36415; 80053; 85025; 85610; 93242; 99211

== ENCOUNTER → 2022-07-19 14:47 | Outpatient (REF) | payer MEDICARE, SELFPAY ==
--- NOTE | 2022-07-19 14:52 | HM_ITS ---
Conclusion: 1. Patient was monitored for total period of 3 days 2. Baseline was atrial fibrillation with average heart of 97 beats per minute with borderline rate control, although maximum heart rate 140 beats per minute 3. No significant pauses or bradycardia 4. No patient reported events MTDD
== END ==
LOC: HO.CARD 14:47
PROVIDERS: PCP Internal Medicine; Visit Provider Internal Medicine Cardiovascular Disease
DX: Z13.89 Encounter for screening for other disorder (principal)
CPT/HCPCS: 93242

== ENCOUNTER 2022-07-26 13:21 | Outpatient (REF) | payer MEDICARE, SELFPAY ==
[2022-07-26 16:27] LABS: MANUAL DIFF FLAG NO
[2022-07-26 16:32] LABS: Basophils Absolute Auto 0.1 X10*3/uL (0.0-0.2); Basophils Percent Auto 1.1 % (0-2); Eosinophils Absolute Auto 0.3 X10*3/uL (0.0-0.4); Eosinophils Percent Auto 4.7 % (0-4); Hematocrit 38.5 % (37.0-47.0); Hemoglobin 13.2 g/dl (12.0-16.0); Imm Gran Abs Auto 0.03 X10*3/uL (0.00-0.03); Imm Gran Pct Auto 0.5 % (0.0-0.4); Lymphocytes Absolute Auto 1.4 X10*3/uL (1.2-4.9); Lymphocytes Percent Auto 20.4 % (20-40); Mean Corpuscular HGB Conc 34.3 g/dl (31.0-35.0); Mean Corpuscular Hemoglobin 31.4 pg (27.0-33.0); Mean Corpuscular Volume 91.7 fL (80.0-98.0); Mean Platelet Volume 11.5 fL (9.4-12.3); Monocytes Absolute Auto 0.5 X10*3/uL (0.1-1.2); Neutrophils Absolute Auto 4.3 x10*3/uL (2.0-8.3); Neutrophils Percent Auto 65.3 % (45-73); Platelet Count 145 X10*3/uL (160-400); Red Cell Distribution Width 14.4 % (11.0-16.0); White Blood Count 6.6 X10*3/uL (4.8-10.8)
[2022-07-26 16:43] LABS: Prothrombin Time 71.4 SEC (10.0-13.1)
[2022-07-26 16:47] LABS: Alanine Aminotransferase 16 U/L (0-31); Albumin Level 2.8 g/dL (3.5-5.0); Alkaline Phosphatase 110 U/L (39-117); Anion Gap 14 (12-20); Aspartate Amino Transferase 29 U/L (5-31); Bilirubin Total 2.1 mg/dL (0.0-1.0); Blood Urea Nitrogen 15 mg/dL (9-16); Calcium 9.4 mg/dL (8.4-10.2); Carbon Dioxide 28 mmol/L (22-29); Chloride 96 mmol/L (96-108); Estimated Glomerular Filt Rate 35; Glucose Random 232 mg/dL (60-115); Potassium 3.6 mmol/L (3.3-5.1); Sodium 134 mmol/L (135-145); Total Protein 6.5 g/dL (6.5-8.0)
[2022-07-26 16:56] LABS: INTERNATIONAL NORM RATIO 5.8 (0.9-1.1)
== END 2022-07-26 13:22 | disposition home or self-care (01) ==
LOC: HO.HMGCLR 13:21
PROVIDERS: PCP Internal Medicine; Visit Provider Internal Medicine Gastroenterology
DX: I48.0 Paroxysmal atrial fibrillation (principal); K75.81 Nonalcoholic steatohepatitis (NASH); K74.60 Unspecified cirrhosis of liver; Z51.81 Encounter for therapeutic drug level monitoring; Z79.01 Long term (current) use of anticoagulants
CPT/HCPCS: 36415; 80053; 85025; 85610; 99211

== ENCOUNTER → 2022-07-27 14:01 | Outpatient (BNVA) | payer MEDICARE, SELFPAY | PROVIDERS: PCP Internal Medicine; Visit Provider Internal Medicine | DX: I48.0 Paroxysmal atrial fibrillation (principal); Z79.01 Long term (current) use of anticoagulants; Z51.81 Encounter for therapeutic drug level monitoring | CPT/HCPCS: 85610; 99211 ==

== ENCOUNTER → 2022-07-28 13:51 | Outpatient (BNVA) | payer MEDICARE, SELFPAY | PROVIDERS: PCP Internal Medicine; Visit Provider Internal Medicine | DX: I48.0 Paroxysmal atrial fibrillation (principal); Z79.01 Long term (current) use of anticoagulants; Z51.81 Encounter for therapeutic drug level monitoring | CPT/HCPCS: 85610; 99211 ==

== ENCOUNTER → 2022-12-21 14:23 | Outpatient (BNVA) | payer MEDICARE, SELFPAY | PROVIDERS: PCP Internal Medicine; Referring Provider Internal Medicine; Visit Provider Internal Medicine Cardiovascular Disease | DX: I48.19 Other persistent atrial fibrillation (principal); I50.9 Heart failure, unspecified; Z94.4 Liver transplant status | CPT/HCPCS: 99212 ==

== ENCOUNTER 2023-06-26 13:59 | Outpatient (AMB) | payer MEDICARE, SELFPAY ==
[2023-06-26 14:33] VITALS: BP 130/80; PULSE 113; BMI 34.9
--- NOTE | 2023-06-26 14:33 | MHC.OFFVIS ---
Intake Vital Signs 06/26/23 14:33 Height 5 ft 7 in Weight 222 lb 10.67 oz BMI 34.9 BP 130/80 Blood Pressure Location Rt brachial Position Sitting Pulse 113 H Intake Visit Reasons: 6 mth f/up Intake Note: 6 month follow-up with ekg c/o pain left chest but on the surface and higher heart rates Wind Up Operator Required: No Infantry Unit Leader: Infantry Unit Leader Present Accompanied by: Spouse Allergies metoclopramide [From REGLAN] Allergy (Unknown, Verified 07/28/22 13:59) SWELLING tramadol [TRAMADOL] Allergy (Unknown, Verified 07/28/22 13:59) SWELLING From AUGMENTIN Allergy (Mild, Uncoded 07/28/22 13:59) COUGHING, LOW BP\ Medication List - Last Reconciled 06/26/23 by Esequiel Bach MD acetaminophen 650 mg PO Q4H PRN alprazolam 0.5 mg PO DAILY PRN apixaban (Eliquis) 5 mg PO BID clotrimazole-betamethasone 1-0.05 % 1 appl topical BID PRN cyclosporine 0.05% (Restasis) 1 drp ophthalmic (eye) Q12H ergocalciferol (vitamin D2) 1,250 mcg PO QWEEK ferrous sulfate 325 mg PO BID 90 days fluticasone propionate 250 mcg/actuation 1 inh inhalation BEDTIME insulin glargine 50 units subcut BEDTIME insulin lispro (Humalog KwikPen (U-100) Insulin) See Protocol sliding scale doses subcut TIDAC levothyroxine (Synthroid) 137 mcg PO DAILY lovastatin 40 mg PO BEDTIME magnesium oxide 400 mg PO ONCE metoprolol succinate ER (Toprol XL) 100 mg PO Q12H mycophenolate mofetil 750 mg PO BID nystatin 1 appl topical BID pantoprazole 40 mg PO DAILY silver sulfadiazine 1% appl topical BID sulfamethoxazole-trimethoprim 400-80 mg 3 x a week tacrolimus 1 mg PO Q12H torsemide 40 mg PO ONCE triamterene-hydrochlorothiazid 37.5-25 mg 1 cap PO QAM HPI HPI Comments History of Present Illness Details Elysia comes for follow-up. No obvious cardiac symptoms. No heart failure symptoms. Occasionally notices heart rate to be in the 120s. No significant palpitations. No lightheadedness, syncope. No orthopnea, PND, weight gain, leg edema, abdominal distension. Her diuretic regimen is being managed by the liver transplant team. She denies any exertional chest pain. Takes all medications. No bleeding issues or neurologic events. PENDING SALE TO [facility] Medical History Portal hypertension PAC (premature atrial contraction) Iron deficiency anemia Esophageal varices without bleeding Cirrhosis of liver with ascites History of colonic polyps GERD (gastroesophageal reflux disease) Paroxysmal atrial fibrillation Hypertension Hyperlipidemia Type 2 diabetes mellitus Asthma Thyroid disease Shingles Obesity (BMI 35.0-39.9 without comorbidity) Surgical History Status post surgical removal of pilonidal cyst (~1979) History of partial hysterectomy (~1998) Hx of endoscopy Hx of colonoscopy Family History Father No problems noted. Mother No problems noted. Paternal Grandmother Colon cancer Social History Household Members: Spouse Housing: House Do you presently have visiting nurse or other home services: No Alcohol intake: former Patient Tobacco Use Status: Never used Tobacco service: No Current occupational status: disabled Current occupational exposures/hazards: No Review of Systems Const Denies chills, Denies fatigue, Denies fever(s), Denies frequent falls, Denies weakness, Denies weight gain and Denies weight loss ENT Denies dizziness Card Denies chest pain, Denies leg edema, Denies lightheadedness, Denies palpitations, Denies dyspnea, Denies dyspnea on exertion, Denies orthopnea and Denies other (loss of consciousness) Resp Denies cough, Denies dyspnea and Denies dyspnea on exertion GI Denies hematochezia and Denies change in stool character Musc Denies abnormal gait, Denies muscle weakness, Denies numbness, Denies radiating pain into limb and Denies tingling Neuro Denies abnormal gait, Denies dizziness, Denies frequent falls, Denies numbness, Denies tingling and Denies weakness Endo Denies fatigue and Denies palpitations Physical Exam Vital Signs: Last Vital Signs Pulse 113 H 06/26/23 14:33 BP 130/80 06/26/23 14:33 BMI result Body Mass Index 34.9 Const General: cooperative, comfortable, alert, awake and anxious Nutritional Appearance: obese Orientation/consciousness: patient oriented x3 Limitations: no limitations Neck Neck: Yes trachea midline, Yes supple and Yes no JVD Chest Chest palpation & inspection: normal inspection of the chest Resp Effort & Inspection: normal respiratory effort Auscultation: clear to auscultation bilaterally Cardio Jugular venous distension: no JVD Palpation: normal PMI Rate: regular rate Rhythm: abnormal rhythm irregularly irregular Heart sounds: S1 normal heart sound present, S2 normal heart sound present, no click, no gallops and no murmurs Skin General skin exam: no rashes or lesions noted Neuro General: patient oriented x3 and no focal motor deficits Extrem General: Yes no clubbing, cyanosis or edema Psych Appearance: grossly normal Affect: Anxious affect present Office Procedures EKG Details: EKG shows atrial flutter with rapid ventricular response with variable conduction with left anterior fascicular block [id number], Complete Assessment & Plan Assessment & Plan (1) Persistent atrial fibrillation: Code(s): I48.19 - Other persistent atrial fibrillation Plan: Persistent atrial flutter/fibrillation with uncontrolled ventricular response despite high dose of beta-tone therapy. She has minimal symptoms although notice at heart rate is high occasionally. She denies any worsening heart failure symptoms. Clinically appears to be euvolemic and well compensated. Better rate control is needed. Will add digoxin 0.125 mg daily to her regimen. Follow-up digoxin assay next week. Follow-up Holter in 2 weeks. Importance of adequate rate control was discussed. Continue current full oral anticoagulation Eliquis 5 mg b.i.d.. Renal function should be followed closely and is being followed by the liver transplant team. Will follow up in the clinic in 6 months time, sooner p.r.n.. Thank you for allowing me to partake in the care Orders: Orders Digoxin 1 Week I48.19 - Other persistent atrial fibrillation, I48.20 - Chronic atrial fibrillation, unspecified ECG holter monitor 48 hour 2 Weeks I48.19 - Other persistent atrial fibrillation Medications: New digoxin (Digox) 125 mcg PO DAILY 30 tabs 5RF Changed From magnesium oxide 800 mg (2 x 400 mg (241.3 mg magnesium)) PO TID 540 tabs 3RF To magnesium oxide 400 mg PO ONCE Coding Level of Care Code Est Pt Level 4 (51287) Diagnoses Persistent atrial fibrillation I48.19 CPT Codes EKG - CPT: 45494-[id number], Complete ([id number])
== END 2023-06-26 15:05 | disposition home or self-care (01) ==
PROVIDERS: PCP Internal Medicine; Visit Provider Internal Medicine Cardiovascular Disease
DX: I48.19 Other persistent atrial fibrillation (principal)
CPT/HCPCS: 93010; 99214

== ENCOUNTER → 2023-06-26 13:59 | Outpatient (BNVA) | payer MEDICARE, SELFPAY | PROVIDERS: PCP Internal Medicine; Visit Provider Internal Medicine Cardiovascular Disease | DX: I48.19 Other persistent atrial fibrillation (principal) | CPT/HCPCS: 93005; 99212 ==

== ENCOUNTER → 2023-07-06 13:07 | Outpatient (REF) | payer MEDICARE, SELFPAY ==
--- NOTE | 2023-07-06 13:10 | HM_ITS ---
* Total monitoring time 2 days. * Underlying rhythm is atrial fibrillation. Average ventricular rate 73/Min. Range 57 to 132/Min. * Rare ventricular ectopy. * No significant pauses or AV blocks. * Patient markers used in association with atrial fibrillation. No diary events. MTDD
== END ==
LOC: HO.CARD 13:07
PROVIDERS: PCP Internal Medicine; Visit Provider Internal Medicine Cardiovascular Disease
DX: I48.19 Other persistent atrial fibrillation (principal)
CPT/HCPCS: 93225

== ENCOUNTER → 2023-07-06 13:10 | Outpatient (BNV) | payer MEDICARE, SELFPAY | PROVIDERS: PCP Internal Medicine; Visit Provider Internal Medicine | DX: I48.19 Other persistent atrial fibrillation (principal) | CPT/HCPCS: 93227 ==

== ENCOUNTER 2023-07-13 06:20 | Outpatient (REF) | payer MEDICARE, SELFPAY ==
[2023-07-13 13:00] LABS: Digoxin 1.1 ng/mL (0.8-2.0)
== END 2023-07-13 06:21 | disposition home or self-care (01) ==
LOC: HO.HMGCLDS 06:20
PROVIDERS: Visit Provider Internal Medicine Cardiovascular Disease
DX: I48.20 Chronic atrial fibrillation, unspecified (principal)
CPT/HCPCS: 36415; 80162

== ENCOUNTER 2023-08-30 15:24 | Outpatient (REF) | payer MEDICARE, SELFPAY ==
[2023-08-30 18:12] LABS: Digoxin 2.1 ng/mL (0.8-2.0)
== END 2023-08-30 15:25 | disposition home or self-care (01) ==
LOC: HO.LAB 15:24
PROVIDERS: Visit Provider Internal Medicine Cardiovascular Disease
DX: I48.19 Other persistent atrial fibrillation (principal)
CPT/HCPCS: 36415; 80162

== ENCOUNTER 2023-08-31 13:15 | Outpatient (REF) | payer MEDICARE, SELFPAY ==
[2023-08-31 14:12] LABS: Anion Gap 15 (12-20); Blood Urea Nitrogen 52 mg/dL (9-16); Calcium 9.9 mg/dL (8.4-10.2); Carbon Dioxide 24 mmol/L (22-29); Chloride 98 mmol/L (96-108); Estimated Glomerular Filt Rate 19; Glucose Random 322 mg/dL (60-115); Potassium 4.1 mmol/L (3.3-5.1); Sodium 133 mmol/L (135-145)
[2023-08-31 14:40] LABS: Digoxin 1.4 ng/mL (0.8-2.0)
== END 2023-08-31 13:16 | disposition home or self-care (01) ==
LOC: HO.LAB 13:15
PROVIDERS: Visit Provider Internal Medicine Cardiovascular Disease
DX: I48.19 Other persistent atrial fibrillation (principal); R78.89 Finding of other specified substances, not normally found in blood
CPT/HCPCS: 36415; 80048; 80162

== ENCOUNTER 2023-09-06 15:15 | Outpatient (REF) | payer MEDICARE, SELFPAY ==
[2023-09-06 17:25] LABS: Anion Gap 17 (12-20); Blood Urea Nitrogen 43 mg/dL (9-16); Calcium 9.2 mg/dL (8.4-10.2); Carbon Dioxide 25 mmol/L (22-29); Chloride 96 mmol/L (96-108); Estimated Glomerular Filt Rate 26; Glucose Random 324 mg/dL (60-115); Potassium 3.6 mmol/L (3.3-5.1); Sodium 134 mmol/L (135-145)
[2023-09-06 17:26] LABS: Digoxin 0.4 ng/mL (0.8-2.0)
== END 2023-09-06 15:16 | disposition home or self-care (01) ==
LOC: HO.HMGCLDS 15:15
PROVIDERS: PCP Internal Medicine; Visit Provider Internal Medicine Cardiovascular Disease
DX: I48.19 Other persistent atrial fibrillation (principal); R78.89 Finding of other specified substances, not normally found in blood; R79.89 Other specified abnormal findings of blood chemistry; Z94.4 Liver transplant status; Z79.899 Other long term (current) drug therapy
CPT/HCPCS: 36415; 80048; 80162

== ENCOUNTER 2023-10-24 13:16 | Outpatient (AMB) | payer MEDICARE, SELFPAY ==
[2023-10-24 13:17] VITALS: BMI 34.8
--- NOTE | 2023-10-24 13:17 | A.OFFVIS_ITS ---
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 States her thumb is locking daily. States this started about 2 months ago and has worsen. Patient would like to discuss injection vs surgical intervention. 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 The patient reports the right thumb is locking daily. She reports an increase in locking which began around 2 months ago, in 07/2023. The patient would like to discussed conservative treatment versus surgical intervention. [facility] Medical History Portal hypertension PAC (premature atrial contraction) Iron deficiency anemia Esophageal varices without bleeding Cirrhosis of liver with ascites History of colonic polyps GERD (gastroesophageal reflux disease) Paroxysmal atrial fibrillation Hypertension Hyperlipidemia Type 2 diabetes mellitus Asthma Thyroid disease Shingles Obesity (BMI 35.0-39.9 without comorbidity) Surgical History Status post surgical removal of pilonidal cyst (~1979) History of partial hysterectomy (~1998) Hx of endoscopy Hx of colonoscopy Family History Father No problems noted. Mother No problems noted. Paternal Grandmother Colon cancer Social History Household Members: Spouse Housing: House Do you presently have visiting nurse or other home services: No Alcohol intake: former Patient Tobacco Use Status: Never used Tobacco service: No Current occupational status: disabled Current occupational exposures/hazards: No Review of Systems Const All systems reviewed & are unremarkable except as noted in HPI and below Physical Exam Vital Signs: BMI result Body Mass Index 34.8 Const General: cooperative, healthy appearing and no acute distress Resp Effort & Inspection: normal respiratory effort and able to speak in complete sentences Cardio Rate: regular rate Peripheral pulses: Peripheral pulses 2+ throughout GI Palpation (GI): Soft to palpation Skin Lesions: no lesions Rashes: no rashes Extrem Other: Right thumb: Normal to inspection. No ecchymosis, erythema, or edema. Active triggering and tenderness to palpation at the A1 [place]. Able to perform full finger flexion, extension, abduction, adduction, finger cross, okay sign, and thumbs up without deficit. Able to make a closed fist. Sensation intact. Capillary refill is brisk. Radial pulse intact. Office Procedures Joint Inj/Aspir; Non-Pain Clin Joint Injection/Drain Prep: site was prepped using aseptic technique and injection warnings given Approach Used: other (right thumb A1 [place] ) Procedure: The patient tolerated the procedure well, but had some pain with the injection and there was some relief with the local anesthesia Trigger Finger Details: 1cc Dexam 1cc 2% plain lido Trigger Finger Thumb Joint Injection: Right Thumb Coding Procedure code (CPT) selection complete Assessment & Plan Assessment & Plan (1) Trigger finger of right thumb: Code(s): M65.311 - Trigger thumb, right thumb (2) Persistent atrial fibrillation: Code(s): I48.19 - Other persistent atrial fibrillation (3) Type 2 diabetes mellitus: Code(s): E11.9 - Type 2 diabetes mellitus without complications Plan Ms. Valle is a 63-year-old right hand dominant female who presents in the office today, as a new patient, for an evaluation of right thumb pain. The patient reports the right thumb is locking daily. She reports an increase in locking which began around 2 months ago, in 07/2023. The patient would like to discussed conservative treatment versus surgical intervention. The patient was offered a cortisone injection in the right thumb. The patient was explained the risk, benefits, and alternatives to receiving this injection. After receiving consent for the injection, the patient had the procedure done while in office today. The patient tolerated the procedure well with no complications. Follow up will be PRN, or sooner if needed. Patient Instructions: Scribed for Bess Garcia PA-C by jojo Macias scribe, on 10/24/2023 at 1:18 pm, EST. Coding Level of Care Code New Pt Level 4 (25857) Diagnoses Trigger finger of right thumb M65.311 Persistent atrial fibrillation I48.19 Type 2 diabetes mellitus E11.9 CPT Codes Trigger Finger ([id number])
== END 2023-10-24 13:44 | disposition home or self-care (01) ==
PROVIDERS: PCP Internal Medicine; Visit Provider Physician Assistant
DX: M65.311 Trigger thumb, right thumb (principal); I48.19 Other persistent atrial fibrillation; E11.9 Type 2 diabetes mellitus without complications
CPT/HCPCS: 20550; 99204

== ENCOUNTER → 2023-10-24 13:16 | Outpatient (BNVA) | payer MEDICARE, SELFPAY | PROVIDERS: PCP Internal Medicine; Visit Provider Physician Assistant | DX: M65.311 Trigger thumb, right thumb (principal); I48.19 Other persistent atrial fibrillation; E11.9 Type 2 diabetes mellitus without complications | CPT/HCPCS: 20550; 99202; J1100 ==

== ENCOUNTER 2024-02-06 11:10 | Outpatient (REF) | payer MEDICARE, SELFPAY | END 2024-02-06 11:11 | disposition home or self-care (01) | LOC: HO.MANLNP 11:10 | PROVIDERS: Visit Provider Physician Assistant | DX: N39.0 Urinary tract infection, site not specified (principal) | CPT/HCPCS: 87086; 87088; 87186 ==

== ENCOUNTER 2024-03-07 14:14 | Outpatient (AMB) | payer MEDICARE, SELFPAY ==
--- NOTE | 2024-03-07 14:23 | MHC.OFFVIS ---
Vital Signs 03/07/24 14:24 Height 5 ft 7 in Weight 211 lb 10.3 oz BMI 33.1 BP 120/82 Blood Pressure Location Lt brachial Position Sitting Pulse 83 Intake Visit Reasons: r/s 12/28/23 6 mos followup Intake Note: 6 month follow-up Business Development Representative Required: No Allergies metoclopramide [From REGLAN] Allergy (Unknown, Verified 10/24/23 13:21) SWELLING tramadol [TRAMADOL] Allergy (Unknown, Verified 10/24/23 13:21) SWELLING From AUGMENTIN Allergy (Mild, Uncoded 07/28/22 13:59) COUGHING, LOW BP\ Medication List - Last Reconciled 03/07/24 by Esequiel Bach MD acetaminophen 650 mg PO Q4H PRN alprazolam 0.5 mg PO DAILY PRN apixaban (Eliquis) 5 mg PO BID clotrimazole-betamethasone 1-0.05 % 1 appl topical BID PRN cyclosporine 0.05% (Restasis) 1 drp ophthalmic (eye) Q12H ergocalciferol (vitamin D2) 1,250 mcg PO QWEEK ferrous sulfate 325 mg PO BID 90 days fluticasone propionate 250 mcg/actuation 1 inh inhalation BEDTIME insulin glargine 50 units subcut BEDTIME insulin lispro (Humalog KwikPen (U-100) Insulin) See Protocol sliding scale doses subcut TIDAC levothyroxine (Synthroid) 137 mcg PO DAILY lovastatin 40 mg PO BEDTIME magnesium oxide 400 mg PO ONCE metoprolol succinate ER 100 mg PO Q12H mycophenolate mofetil 750 mg PO BID nystatin 1 appl topical BID pantoprazole 40 mg PO DAILY silver sulfadiazine 1% appl topical BID tacrolimus 1 mg PO Q12H torsemide 40 mg PO ONCE triamterene-hydrochlorothiazid 37.5-25 mg 1 cap PO QAM HPI Comments Details: Elysia comes for follow-up. She has been doing very well otherwise from cardiac perspective. No significant symptoms of palpitations. notices occasionally heart rate up to 100 beats per minute. Takes all the medications. Denies any bleeding issues or neurologic events. Has blood work done a almost on a monthly basis by the liver team. Denies any orthopnea, PND, leg edema. No lightheadedness, syncope. [facility] Medical History Portal hypertension PAC (premature atrial contraction) Iron deficiency anemia Esophageal varices without bleeding Cirrhosis of liver with ascites History of colonic polyps GERD (gastroesophageal reflux disease) Paroxysmal atrial fibrillation Hypertension Hyperlipidemia Type 2 diabetes mellitus Asthma Thyroid disease Shingles Obesity (BMI 35.0-39.9 without comorbidity) Surgical History Status post surgical removal of pilonidal cyst (~1979) History of partial hysterectomy (~1998) Hx of endoscopy Hx of colonoscopy Family History Father No problems noted. Mother No problems noted. Paternal Grandmother Colon cancer Social History Household Members: Spouse Housing: House Do you presently have visiting nurse or other home services: No Alcohol intake: former Patient Tobacco Use Status: Never used Tobacco service: No Current occupational status: disabled Current occupational exposures/hazards: No Review of Systems Const Denies chills, Denies fatigue, Denies fever(s), Denies frequent falls, Denies weakness, Denies weight gain and Denies weight loss ENT Denies dizziness Card Denies chest pain, Denies leg edema, Denies lightheadedness, Denies palpitations, Denies dyspnea, Denies dyspnea on exertion, Denies orthopnea and Denies other (loss of consciousness) Resp Denies cough, Denies dyspnea and Denies dyspnea on exertion GI Denies hematochezia and Denies change in stool character Musc Denies abnormal gait, Denies muscle weakness, Denies numbness, Denies radiating pain into limb and Denies tingling Neuro Denies abnormal gait, Denies dizziness, Denies frequent falls, Denies numbness, Denies tingling and Denies weakness Endo Denies fatigue and Denies palpitations Physical Exam Vital Signs: Last Vital Signs Pulse 83 03/07/24 14:24 BP 120/82 03/07/24 14:24 BMI result Body Mass Index 33.1 Const General: cooperative, comfortable, alert, awake and anxious Nutritional Appearance: obese Orientation/consciousness: patient oriented x3 Limitations: no limitations Neck Neck: Yes trachea midline, Yes supple and Yes no JVD Chest Chest palpation & inspection: normal inspection of the chest Resp Effort & Inspection: normal respiratory effort Auscultation: clear to auscultation bilaterally Cardio Jugular venous distension: no JVD Palpation: normal PMI Rate: regular rate Rhythm: abnormal rhythm irregularly irregular Heart sounds: S1 normal heart sound present, S2 normal heart sound present, no click, no gallops and no murmurs Skin General skin exam: no rashes or lesions noted Neuro General: patient oriented x3 and no focal motor deficits Extrem General: Yes no clubbing, cyanosis or edema Psych Appearance: grossly normal Affect: Anxious affect present Office Procedures EKG Details: EKG shows atrial fibrillation at 83 beats per minute with left anterior fascicular block [id number], Complete Assessment & Plan Assessment & Plan (1) Persistent atrial fibrillation: Code(s): I48.19 - Other persistent atrial fibrillation Category: Medical Plan: Chronic persistent atrial fibrillation without any overt symptoms with overall great heart rate control on current metoprolol therapy. She is doing well from this perspective. Given no symptoms as well as multiple comorbidities and long-lasting atrial fibrillation will pursue rate control approach at this point time. Continue metoprolol therapy. Continue full oral anticoagulation, currently on Eliquis 5 mg b.i.d.. Quarterly renal function test should be pursued. Follow-up echocardiogram next year. (2) Hypertension: Code(s): I10 - Essential (primary) hypertension Category: Medical Plan: Hypertension which is currently well optimized advised to monitor blood pressure at home and maintain a log. Goal blood pressure less than 130/84. Importance of good blood pressure control was discussed. Low-salt diet was discussed. Will follow up in the clinic in 1 year's time after an echocardiogram. Thank you for allowing me to partake in her care Coding Level of Care Code Est Pt Level 4 (95206) Diagnoses Persistent atrial fibrillation I48.19 Hypertension I10 CPT Codes EKG - CPT: 52463-[id number], Complete ([id number])
[2024-03-07 14:24] VITALS: BP 120/82; PULSE 83; BMI 33.1
== END 2024-03-07 14:57 | disposition home or self-care (01) ==
PROVIDERS: PCP Internal Medicine; Visit Provider Internal Medicine Cardiovascular Disease
DX: I48.19 Other persistent atrial fibrillation (principal); I10 Essential (primary) hypertension
CPT/HCPCS: 93010; 99214

== ENCOUNTER → 2024-03-07 14:14 | Outpatient (BNVA) | payer MEDICARE, SELFPAY | PROVIDERS: PCP Internal Medicine; Visit Provider Internal Medicine Cardiovascular Disease | DX: I48.19 Other persistent atrial fibrillation (principal); I10 Essential (primary) hypertension | CPT/HCPCS: 93005; 99212 ==

== ENCOUNTER 2024-04-19 12:15 | Outpatient (REF) | payer MEDICARE, SELFPAY ==
[2024-04-19 16:08] LABS: Appearance Urine Cloudy; Color Urine Yellow; Glucose Urine UA Negative (Negative); Leukocyte Esterase Urine Moderate (2+) (Negative); Nitrite Urine Negative (Negative); PH 5.5 (5.0-9.0); Specific Gravity - Urine 1.015 (1.005-1.025); UMIC TRIGGER UACC YES; Urine Blood Negative (Negative); Urine Ketones Negative (Negative); Urine Protein Negative (Neg-Trace)
[2024-04-19 16:35] LABS: Bacteria Urine 4+ (None Seen); RBC Urine 0-2 /HPF (0-2); UACC Culture Trigger YES; WBC Urine 21-50 /HPF (0-5)
== END 2024-04-19 12:16 | disposition home or self-care (01) ==
LOC: HO.HMGCLDS 12:15
PROVIDERS: PCP Internal Medicine; Visit Provider Physician Assistant
DX: N39.0 Urinary tract infection, site not specified (principal); B96.1 Klebsiella pneumoniae [K. pneumoniae] as the cause of diseases classified elsewhere
CPT/HCPCS: 81001; 81003; 87086; 87088; 87186

== ENCOUNTER 2024-10-02 13:18 | Outpatient (REF) | payer MEDICARE, SELFPAY ==
--- OUTSIDE RECORDS SUMMARY | 2024-10-02 13:21 | XMS_ITS | Data Portability ---
[facility] Organization [facility] Address [address] [place] [address] Assessment No assessment recorded. Plan of Treatment Reminders Order Date Submit Date Provider Last Modified By Organization Details Last Modified Time Details Appointments FOLLOW UP 15 2024 02:15P TRINO HOPKINS Not available Not available Not available Lab urinalysi s complete, reflex culture 2023 024 [facility] Draw Station, [facility] [address], [place], [address], 04/22/2024 11:47:21 urinalysi s, dipstick 2023 024 [facility], [address] [facility], [address], [place], [address], 02/06/2024 11:38:42 culture, urine 2023 024 [facility] Draw Station, [facility] [address], [place], [address], 02/07/2024 11:24:53 Referral hand surgeon referral 2022 023 melva [facility] [place], [address], 08/22/2023 08:40:39 Procedures None recorded. Surgeries None recorded. Imaging US, abdomen + pelvis 2023 024 [email or web address] [facility] (Imaging), [address] [facility], [place], [address], 03/13/2024 09:24:06 Medication Orders amoxicill in 875 mg tablet 2023 024 [facility]/Pharmacy #[id number], [address] [place], [address], 06/26/2024 14:18:58 Asmanex HFA 200 mcg/actua tion aerosol inhaler 2023 024 [email or web address] [facility]/Pharmacy #[id number], [address] [place], [address], 12/04/2023 13:00:50 ketoconaz ole 2 % topical cream 2023 024 [id number] [address] [place], [address], 12/01/2023 15:00:14 Patient TargetsNo targets recorded. Patient InstructionsNo instructions recorded. Reason for Referral Hand Surgeon Referral for Tr igger finger of right hand trigger finger of the right thumb Referring Physician: Patti Bell, Internal Medicine, Encounter Date: 08/21/2023 Results Created Date Observation Date Name Description Value Unit Range Abnormal Flag Note LastModifiedBy Organization Detail LastModifiedTime Result Notes None recorded. Problems Name Problem SNOMED Code Status Onset Date Resolution Date Notes Provider Name and Address Organization Details Recorded Time Splenic infarcti on 91752112 Active 2021 Not Available [facility] 2 17:56:09 Portal vein thrombos is 74555289 Active 2021 Not Available [facility] 2 17:56:09 Pressure ulcer Active 2021 Not Available [facility] 2 17:56:09 Edema of lower extremit y 669662903 Active 2021 Not Available [facility] 2 17:56:09 Gastroes ophageal reflux disease 642075458 Active 2021 Not Available [facility] 2 17:56:09 Type 2 diabetes mellitus 85051599 Active 2017 Not Available [facility] 2 17:56:09 Hypothyr oidism 74829386 Active 2017 Not Available [facility] 2 17:56:09 Hypercho lesterol emia 60247150 Active 2017 Not Available [facility] 2 17:56:09 Acid reflux 814150611 Active 2017 Not Available [facility] 2 17:56:09 Essentia l hyperten eric 57514311 Active 2017 Not Available [facility] 2 17:56:09 Pulmonar y hyperten eric 76527172 Active 2017 Not Available [facility] 2 17:56:09 Sarcoido sis 39730234 Active 2017 Dr. Kiera Reed Not Available [facility] 2 17:56:09 Atrial fibrilla tion 44871110 Active 2017 Not Available [facility] 2 17:56:09 Esophage al varices 81106769 Active 2017 Not Available [facility] 2 17:56:09 Adrenal adenoma 827079157 Active 2017 Not Available [facility] 2 17:56:09 Steatosi s of liver 360912913 Active 2017 Not Available [facility] 2 17:56:09 Chronic kidney disease stage 3 915599566 Active 2021 Not Available [facility] 2 17:56:09 Vasculit is of the skin 19703283 Active 2021 Not Available [facility] 2 17:56:09 Transpla nted liver present 765737798 Active 2022 TRINO ZARAGOZA [address] [place], [address], [facility] 3 14:21:59 Intermit tent claudica tion 26658396 Active 2022 TRINO ZARAGOZA [address] [place], [address], [facility] 3 16:01:13 Peripher al venous insuffic iency 56619754 Active 2022 TRINO ZARAGOZA [address] [place], [address], [facility] 3 16:01:43 Skin ulcer 41244017 Active 2022 TRINO ZARAGOZA [address] [place], [address], [facility] 3 16:04:37 Transpla ntation of liver Active 2022 TRINO ZARAGOZA [address] [place], [address], [facility] 3 16:07:06 Insomnia 879617422 Active 2022 TRINO ZARAGOZA [address] [place], [address], [facility] 3 14:53:51 Trigger finger of right hand 27779468607 051663 Active 2022 TRINO ZARAGOZA [address] [place], [address], [facility] Internal [facility] 3 16:07:03 Tendinit is of left gluteal tendon 23259543579 9108 Active 2022 TRINO ZARAGOZA [address] [place], [address], [facility] 3 16:10:56 Candidia sis of skin 02910630 Active 2022 TRINO ZARAGOZA [address] [place], [address], [facility] 3 16:21:15 Asthma 649502722 Active 2023 TRINO ZARAGOZA [address] [place], [address], [facility] 4 14:52:04 Lipoma of back 970718350 Active 2023 TRINO ZARAGOZA [address] [place] [address], [address], [facility] 4 15:09:55 Peripher al vascular disease 512061417 Active 2023 TRINO ZARAGOZA [address] [place] [address], [address], [facility] 4 11:21:48 Acute urinary tract infectio n 063031838 Active 2023 TRINO ZARAGOZA [address] [place] [address], [address], [facility] 4 11:22:05 Lesion of liver 209134142 Active 2023 TRINO ZARAGOZA [address] [place] [address], [address], [facility] 4 11:26:53 Abdomina l pain 63436409 Active 2023 TRINO ZARAGOZA [address] [place] [address], [address], [facility] 4 14:39:40 Notes:Some problems listed i n Documents: #[id number], #[id number] could not be added to this patient's chart. Please review these documents and add these problems to the patient's chart manually as needed. Problem Notes None recorded. Procedures Surgical History Date Name Laterality Status Provider Name and Address Organization Details Recorded Time 03/04/20 19 I&D completed December BASILIA Martino [address] [place] [address], [address], [facility] 03/04/2019 14:43:51 02/23/20 19 I&D completed Marina BASILIA Martino [address] [place] [address], [address], [facility] 02/22/2019 15:12:47 Partial Hysterectomy completed Neva Strong NP, S [address] [place] [address], [address], [facility] 06/22/2018 15:38:16 Imaging Results None recorded. Procedure Notes None recorded. Medical Equipment None Reported. Allergies Allergen ID Allergen Name Allergen Category Reaction Reaction Severity Criticality Documentation Date Start Date Code Code System Note Provider Name and Address Organization Details Recorded Time 481 lisinopri l medicatio n Not available Not available Not available 12/05/2017 55573 RxNorm Seble rodriguez [facility] Internal [facility] 8 11:41:04 482 Augmentin medicatio n Not available Not available Not available 12/05/2017 33321 2 RxNorm December Salena, PASUP [address] [place], [address], [facility] 9 16:14:00 486 tramadol medicatio n Not available Not available Not available 12/05/2017 32443 RxNorm Seble rodriguez [facility] 8 12:05:04 488 Reglan medicatio n Not available Not available Not available 12/05/2017 9230 RxNorm Seble rodriguez [facility] 8 12:05:35 Medications Name Sig Start Date Stop Date Status Note LastModified by Organization Details LastModified Time carisoprod ol 350 mg tablet Take 1 tablet every day by oral route at bedtime. 07/17 completed Not Available Not Available Not Available silver sulfadiazi ne 1 % topical cream APPLY A 1/16 INCH (1.5 MM) THICK LAYER TO ENTIRE AREA BY TOPICAL ROUTE 2 TIMES PER DAY 2022 active Not Available Not Available Not Avai lable metformin 500 mg tablet TAKE 1 TABLET BY MOUTH EVERY DAY 08/21 completed Not Available Not Available Not Available nystatin 100,000 unit/mL oral suspension 10/28 completed Not Available Not Available Not Available torsemide 20 mg tablet TAKE ONE TABLET QD active Not Available Not Available No t Available azithromyc in 250 mg tablet TAKE 2 TABLETS BY MOUTH TODAY, THEN TAKE 1 TABLET DAILY FOR 4 DAYS 04/25 completed Not Available Not Available Not Available benzonatat e 200 mg capsule TAKE 1 CAPSULE 3 TIMES A DAY BY ORAL ROUTE NEEDED FOR 14 DAYS. 04/25 completed Not Available Not Available Not Available metoprolol succinate ER 50 mg tablet,ext ended release 24 hr TAKE 1 TABLET BY MOUTH EVERY DAY 10/28 completed Not Available Not Available Not Available sulfametho xazole 400 mg-trimeth oprim 80 mg tablet 08/21 completed Not Available Not Available Not Available Synthroid 200 mcg tablet Take 1 tablet every day by oral route. 01/04 completed Not Available Not Available Not Available cephalexin 250 mg capsule TAKE 2 CAPSULES BY MOUTH 4 TIMES A DAY FOR 7 DAYS. 10/28 completed Not Available Not Available Not Available Synthroid 150 mcg tablet Take 1 tablet every day by oral route. 11/13 completed Not Available Not Available Not Available mycophenol ate mofetil 250 mg capsule Take 2 capsules twice a day by oral route. active Not Available Not Available No t Available Claritin 10 mg tablet Take 1 tablet every day by oral route. 05/21 completed Not Available Not Available Not Available fluconazol e 200 mg tablet TAKE 1 TABLET BY MOUTH ONCE FOR 1 DOSE. 10/28 completed Not Available Not Available Not Available metoprolol succinate ER 200 mg tablet,ext ended release 24 hr active Not Available Not Available Not Available ondansetro n HCl 4 mg tablet TAKE 1 TABLET BY MOUTH EVERY 4 TO 6 HOURS active Not Available Not Available No t Available lovastatin 40 mg tablet TAKE 1 TABLET BY MOUTH EVERYDAY AT BEDTIME active Not Available Not Available No t Available spironolac tone 100 mg tablet TAKE 1 TABLET BY MOUTH EVERY DAY 01/25 completed Not Available Not Available Not Available metoprolol succinate ER 100 mg tablet,ext ended release 24 hr TAKE 1 TABLET BY MOUTH EVERY 12 HOURS active Not Available Not Available No t Available prednisone 5 mg tablet 10/28 completed Not Available Not Available Not Available atenolol 25 mg tablet Take 1 tablet every day by oral route. 07/17 completed Not Available Not Available Not Available valsartan 80 mg tablet TAKE 1 TABLET BY MOUTH EVERY DAY 07/17 completed Not Available Not Available Not Available ciprofloxa karen 500 mg tablet TAKE 1 TABLET BY MOUTH EVERY 12 HOURS FOR 5 DAYS. 10/28 completed Not Available Not Available Not Available sulfametho xazole 800 mg-trimeth oprim 160 mg tablet Take 1 tablet every 12 hours by oral route for 5 days. 06/05 completed Not Available Not Available Not Available omeprazole 40 mg capsule,de layed release TAKE 1 CAPSULE BY MOUTH QD 10/28 completed Not Available Not Available Not Available doxycyclin e monohydrat e 100 mg tablet TAKE 1 TABLET (100 MG TOTAL) BY MOUTH 2 TIMES A DAY FOR 10 DAYS. TAKE WITH FOOD 10/28 completed Not Available Not Available Not Available triamteren e 37.5 mg-hydroch lorothiazi de 25 mg capsule TAKE 1 CAPSULE BY MOUTH EVERY OTHER DAY active Not Available Not Available No t Available acyclovir 800 mg tablet 08/21 completed Not Available Not Available Not Available Synthroid 175 mcg tablet Take 1 tablet every day by oral route. 02/11 completed Not Available Not Available Not Available nadolol 20 mg tablet 12/11 completed Not Available Not Available Not Available oxycodone- acetaminop hen 5 mg-325 mg tablet Take 1 tablet every 6-8 hours by oral route as needed for 7 days. 03/02 completed Not Available Not Available Not Available alprazolam 0.5 mg tablet TAKE 1 TABLET BY MOUTH EVERY DAY NEEDED 2023 active Not Available Not Available Not Avai lable amoxicilli n 875 mg tablet TAKE 1 TABLET BY MOUTH EVERY 12 HOURS FOR 7 DAYS 06/26 completed Not Available Not Available Not Available magnesium oxide 400 mg (241.3 mg magnesium) tablet TAKE 2 TABLETS BY MOUTH 3 TIMES A DAY. NOT COV 10/28 completed Not Available Not Available Not Available lorazepam 0.5 mg tablet TAKE 1 TABLET BY MOUTH EVERY DAY NEEDED 05/12 completed Not Available Not Available Not Available oxycodone- acetaminop hen 10 mg-325 mg tablet TAKE 1 TABLET BY MOUTH EVERY 6 HOURS NEEDED FOR 7 DAYS 04/07 completed Not Available Not Available Not Available dexamethas one 1 mg tablet 07/17 completed Not Available Not Available Not Available meclizine 25 mg tablet Take 1 tablet 3 times a day by oral route as needed for 3 days. 06/05 completed Not Available Not Available Not Available cephalexin 500 mg capsule TAKE 1 CAP ORALLY 4 TIMES A DAY FOR CELLULIT IS FOR 10 DAYS 06/22 completed Not Available Not Available Not Available pantoprazo le 40 mg tablet,del ayed release active Not Available Not Available Not Available ferrous sulfate 325 mg (65 mg iron) tablet TAKE 1 TABLET BY MOUTH TWICE A DAY active Not Available Not Available No t Available nystatin 100,000 unit/gram topical cream APPLY TO AFFECTED AREA TWICE A DAY active hold refill Not Available Not Available Not Available clotrimazo le-betamet hasone 1 %-0.05 % topical cream APPLY TO AFFECTED AREA TWICE A DAY IN THE MORNING AND IN THE EVENING FOR 2 WEEKS 01/31 completed Not Available Not Available Not Available warfarin 2 mg tablet TAKE 2 TABLETS BY MOUTH EVERY DAY active Not Available Not Available No t Available flecainide 50 mg tablet BID 07/17 completed Not Available Not Available Not Available flecainide 100 mg tablet Take 1 tablet twice a day by oral route for 30 days. 06/05 completed Not Available Not Available Not Available sertraline 25 mg tablet TAKE 1 TABLET EVERY DAY BY MOUTH FOR 30 DAYS. 01/04 completed Not Available Not Available Not Available nadolol 40 mg tablet Take 1 tablet every day by oral route for 90 days. 06/05 completed Not Available Not Available Not Available digoxin 125 mcg (0.125 mg) tablet TAKE 1 TABLET BY MOUTH EVERY DAY 11/30 completed Not Available Not Available Not Available furosemide 20 mg tablet TAKE 2 TABLETS BY MOUTH EVERY DAY 01/25 completed Not Available Not Available Not Available Synthroid 112 mcg tablet TAKE 1 TABLET BY MOUTH EVERY DAY FOR 90 DAYS 01/25 completed Not Available Not Available Not Available metoprolol succinate ER 25 mg tablet,ext ended release 24 hr TAKE 1 TABLET BY MOUTH EVERY DAY active Not Available Not Available No t Available ergocalcif mio (vitamin D2) 1,250 mcg (50,000 unit) capsule active Not Available Not Available Not Available lotepredno l etabonate 0.5 % eye drops,susp ension 10/28 completed Not Available Not Available Not Available cefuroxime axetil 500 mg tablet 06/22 completed Not Available Not Available Not Available lovastatin 20 mg tablet Take 2 tablets every day by oral route. 02/11 completed Not Available Not Available Not Available ketoconazo le 2 % topical cream APPLY TO THE AFFECTED AREA(S) BY TOPICAL ROUTE ONCE DAILY active Not Available Not Available No t Available betamethas one dipropiona te 0.05 % topical ointment APPLY SPARINGL Y TO AFFECTED AREA EVERY DAY 10/28 completed Not Available Not Available Not Available ondansetro n 4 mg disintegra ting tablet Take 1 tablet every 12 hours by oral route for 30 days. 08/25 completed Not Available Not Available Not Available doxycyclin e hyclate 100 mg tablet Take 1 tablet twice a day by oral route for 7 days. 03/13 completed Not Available Not Available Not Available spironolac tone 50 mg tablet Take 1 tablet every day by oral route for 90 days. 08/18 completed Not Available Not Available Not Available oxycodone 5 mg tablet PLEASE SEE ATTACHED FOR DETAILED DIRECTIO NS 10/28 completed Not Available Not Available Not Available olmesartan 20 mg tablet Take 1 tablet every day by oral route. 08/03 completed Not Available Not Available Not Available insulin lispro (U-100) 100 unit/mL subcutaneo us pen PLEASE SEE ATTACHED FOR DETAILED DIRECTIO NS active Not Available Not Available No t Available Synthroid 137 mcg tablet TAKE 1 TABLET BY MOUTH EVERY MORNING. active Not Available Not Available No t Available Vitamin D3 25 mcg (1,000 unit) capsule TAKE 1 CAPSULE BY MOUTH EVERY MORNING. active Not Available Not Available No t Available Restasis 0.05 % eye drops in a dropperett e INSTILL 1 DROP INTO BOTH EYES TWICE A DAY active Not Available Not Available No t Available nitrofuran toin monohydrat e/macrocry stals 100 mg capsule TAKE 1 CAPSULE BY MOUTH EVERY 12 HOURS FOR 7 DAYS 06/26 completed Not Available Not Available Not Available lactulose 10 gram/15 mL oral solution TAKE 15ML BY MOUTH TWICE A DAY 01/25 completed Not Available Not Available Not Available Pain Relief Extra Strength (acetamino phen) 500 mg tablet Take 1 tablet (500 mg total) by mouth every 6 hours as needed for pain. 2022 active Not Available Not Available Not Avai lable acetaminop hen 01/25 completed Not Available Not Available Not Available Vitamin C 500mg bid active Not Available Not Available No t Available betamethas one 01/25 completed Not Available Not Available Not Available tacrolimus 01/25 completed Not Available Not Available Not Available Imodium prn 06/05 completed Not Available Not Available Not Available ketoconazo le 01/25 completed Not Available Not Available Not Available Restasis active Not Available Not Avai lable Not Available BD Ultra-Fine Original Pen Needle 29 gauge x 1/2 INJECT 1 EACH DIRECTED 4 (FOUR) TIMES A DAY BEFORE MEALS AND NIGHTLY. active Not Available Not Available No t Available Lantus Solostar U-100 Insulin 100 unit/mL (3 mL) subcutaneo us pen INJECT 34-44 UNITS UNDER THE SKIN NIGHTLY AT BEDTIME. active Not Available Not Available No t Available Lantus Solostar U-100 Insulin 50 Units PM 11/25 completed Not Available Not Available Not Available Humalog KwikPen Insulin Sliding scale 04/07 completed Not Available Not Available Not Available cholecalci ferol (vitamin D3) 50 mcg (2,000 unit) capsule TAKE 1 CAPSULE BY MOUTH AT BEDTIME active Not Available Not Available No t Available Flovent Diskus 250 mcg/actuat ion powder for inhalation INHALE 1 PUFF BY MOUTH TWICE A DAY 2022 active Not Available Not Available Not Avai lable GaviLyte-N 420 gram oral solution 06/22 completed Not Available Not Available Not Available GaviLyte-G 236 gram-22.74 gram-6.74 gram-5.86 gram oral solution 05/21 completed Not Available Not Available Not Available OneTouch Delica Lancets 33 gauge USE DIRECTED TO TEST BLOOD SUGAR 3 TIMES A DAY active Not Available Not Available No t Available Xifaxan 550 mg tablet TAKE 1 TABLET BY MOUTH EVERY 12 HOURS 08/21 completed Not Available Not Available Not Available OneTouch Verio test strips USE TO CHECK BLOOD SUGAR 3 TIMES DAILY active Not Available Not Available No t Available lactulose 20 gram/30 mL oral solution Take 15 mL twice a day by oral route for 30 days. 06/05 completed Not Available Not Available Not Available Eliquis 5 mg tablet TAKE 1 TABLET BY MOUTH TWICE A DAY active Not Available Not Available No t Available apixaban 01/25 completed Not Available Not Available Not Available Jardiance 10 mg tablet 11/13 completed Not Available Not Available Not Available Trulicity 1.5 mg/0.5 mL subcutaneo us pen injector Inject 0.5 mL every week by subcutan eous route. 11/25 completed Not Available Not Available Not Available Asmanex HFA 200 mcg/actuat ion aerosol inhaler TAKE 2 PUFFS BY MOUTH TWICE A DAY active Not Available Not Available No t Available Arnuity Ellipta 200 mcg/actuat ion powder for inhalation INHALE 1 PUFF EVERY DAY DIRECTED active Not Available Not Available No t Available Trulicity 3 mg/0.5 mL subcutaneo us pen injector INJECT 1 PEN SUBCUTAN EOUSLY ONCE A WEEK 84 06/26 completed Not Available Not Available Not Available Vitals Date Recorded Body height Body mass index (BMI) Body weight Systolic blood pressure Diastolic blood pressure Provider Name and Address Organization Details Last Updated DateTime 08/21/2023 171.45 cm 32.3 kg/m2 44327.81 g 130 mm[Hg] 38 mm[Hg] Bekah Hart [facility] 3 15:43:39 Date Recorded Body height Body mass index (BMI) Body weight Heart rate Oxygen saturation Oxygen saturation in Arterial blood by Pulse oximetry Systolic blood pressure Diastolic blood pressure Provider Name and Address Organization Details Last Updated DateTime 4 171.45 cm 32.2 kg/m2 59423.2 7 g 61 /min 97 % 97 % 130 mm[Hg] 74 mm[Hg] Bekah Hart [facility] 4 14:21:57 Date Recorded Body height Body mass index (BMI) Body weight Heart rate Oxygen saturation Oxygen saturation in Arterial blood by Pulse oximetry Systolic blood pressure Diastolic blood pressure Provider Name and Address Organization Details Last Updated DateTime 4 171.45 cm 33 kg/m2 63507.3 3 g 111 /min 97 % 97 % 128 mm[Hg] 86 mm[Hg] Mayra Narayanan [facility] 4 11:05:14 Date Recorded Body height Body mass index (BMI) Body weight Heart rate Oxygen saturation Oxygen saturation in Arterial blood by Pulse oximetry Systolic blood pressure Diastolic blood pressure Provider Name and Address Organization Details Last Updated DateTime 4 171.45 cm 32.9 kg/m2 77536.1 7 g 114 /min 96 % 96 % 130 mm[Hg] 72 mm[Hg] Bekah Hart [facility] 4 14:24:08 Date Recorded Body height Body mass index (BMI) Body weight Heart rate Oxygen saturation Oxygen saturation in Arterial blood by Pulse oximetry Systolic blood pressure Diastolic blood pressure Provider Name and Address Organization Details Last Updated DateTime 4 171.45 cm 34.5 kg/m2 419397. 54 g 121 /min 99 % 99 % 128 mm[Hg] 84 mm[Hg] Mayra Narayanan [facility] 4 14:26:54 Social History Question Answer Notes LastModified by Organizat ion Details LastModified Time Tobacco Smoking Status Former Smoker Seble Dennissara rodriguez [facility] 01/22/2018 09:03:51 What Was The Date Of Your Most Recent Tobacco Screening? 06/26/2024 [email or web address] Information not available 06/26/2024 Do You Or Have You Ever Used Any Other Forms Of Tobacco Or Nicotine? No [email or web address] Information not available 12/06/2021 Sex: Unknown Functional Status None recorded. Mental Status None recorded. Family History Nothing Reported. Medical History Condition Response Allergies/Hayfever N Heart Problems Y Coronary Artery Disease N Gout N Blood Diseases N Hyperthyroidism N Breast Cancer N Hospitalizations Y Thyroid Problems Y Depression N COPD N Lung Disease Y Hypothyroidism Y Defects or Inherited Disease N Anemia Y Anesthesia Complications N Mental Illness N Anxiety Disorder N Meniere's disease N Diabetes Y Obesity Y Arthritis N Mental Disorder N Congestive Heart Failure (CHF) N Diverticulitis N Abuse/Domestic Violence N Asthma N High Cholesterol Y Hepatitis Y Liver Disease Y Heart Disease N Pulmonary Embolism N Hypertension Y Autism Spectrum Disorder (ASD) N Gynecological HistoryNo gynecological history recorded. Obstetrics History GPAL:G 0 P 0 0 0 0 Immunizations Vaccine Type Date Status Note Provider Nam e and Address Organization Details Recorded Time COVID-19, mRNA, LNP-S, PF, 100 mcg/0.5mL dose or 50 mcg/0.25mL dose 1 completed Not Available [facility] 10/27/2023 13:24:45 COVID-19, mRNA, LNP-S, PF, 100 mcg/0.5mL dose or 50 mcg/0.25mL dose 1 completed Not Available [facility] [facility] 10/27/2023 13:24:45 Tdap 0 completed Not Available [facility] 10/27/2023 13:24:45 COVID-19, mRNA, LNP-S, PF, 30 mcg/0.3 mL dose 1 completed Not Available [facility] 10/27/2023 13:24:45 Hep B, unspecified formulation 1 completed Not Available [facility] 10/27/2023 13:24:45 Influenza, split virus, quadrivalent, preservative 1 completed Not Available [facility] 10/27/2023 13:24:45 Past Encounters Encounter ID Performer Location Encounter Start Date Encounter Closed Date Diagnosis/Indication Diagnosis SNOMED-CT Code Diagnosis ICD10 Code Diagnosis Note [id number] Neva Strong NP, S [facility] Internal Medicine [address] [facility], [place] [address] 01/22/2018 08:53:35 01/22/2018 10:08:56 Calcific tendinitis of shoulder 11042335 M75.31 Insulin tr eated type 2 diabetes mellitus 592947968 Z79.4 stable, follow Shoulder joint pain 2679 83846 M25.519 Essential hypertension 70282531 I10 stable [id number] Neva Strong NP, S [facility] Internal Medicine [address] [facility] [address] 02/14/2018 09:02:06 02/16/2018 09:30:37 Tick bite 56612002 S30.861A Paroxysmal atrial fibrillation 654082987 I48.0 stable with eliquis, flecainide await appt in [facility] keep appt next week with DR. Bach be seen urgently if A-fib recurs and is persistant Type 2 luciano betes mellitus 37650978 E11.9 follow Essential hypertension 67597903 I10 well controlled [id number] Neva Strong NP, S [facility] Internal Medicine [address] [facility] [place] [facility] [place] [address] 04/13/2018 09:00:10 04/13/2018 09:44:20 Hypomagnesemia 091739369 E83.42 Type 2 luciano betes mellitus 13917799 E11.9 follow Paroxysmal atrial fibrillation 833824367 I48.0 stable Hypothyroidism 13115506 E03.9 Essential hypertension 68560073 I10 well controlled Hypercholesterolemia 136 84291 E78.00 [id number] Neva Strong NP, [facility] Internal Medicine [address] [facility] [place] [address] 05/15/2018 11:42:51 05/15/2018 12:22:09 Esophageal varices 51001116 I85.00 recent banding Atrial fibrillation 4943 6004 I48.91 on eliquis Essential hypertension 94434296 I10 well controlled Dehydration 76878699 E86 .0 resolved in [facility] [id number] Neva Strong NP, [facility] Internal Medicine [address] [facility] [place] [address] 06/22/2018 14:59:39 06/22/2018 16:24:53 Chronic pelvic pain of female 657664124 R10.2 Esophageal varices 01987 008 I85.00 scheduled for third banding next week Type 2 luciano betes mellitus 70050229 E11.9 A1C 7.6 [id number] Neva Strong NP, [facility] Internal Medicine [address] [facility] [place] [address] 07/17/2018 09:12:56 07/20/2018 08:36:51 Hypercholesterolemia 19771384 E78.00 Esophageal varices 12875 008 I85.00 banding last week with f/u in 2 weeks Hypothyroidism 01578991 E03.9 Type 2 luciano betes mellitus 26120414 E11.9 A1C 7.6 Essential hypertension 06288749 I10 well controlled Hypomagnesemia 209665234 E83.42 Acute cystitis 15766775 N30.00 [id number] Neva Strong NP, [facility] Internal Medicine [address] [facility] [place] [address] 08/03/2018 14:20:10 08/03/2018 15:49:59 Hypomagnesemia 903587630 E83.42 Doing labs today after visit Esophageal varices 69371 008 I85.00 3 bands 07/25- follow Atrial fibrillation 4943 6004 I48.91 on eliquis Essential hypertension 18619515 I10 well controlled , continue off olmesartan [id number] Neva Strong NP, [facility] Internal Medicine [address] [facility] [place] [address] 09/11/2018 15:42:46 09/14/2018 11:18:25 Acute cystitis 53908198 N30.00 Shoulder pain 63229079 M 25.519 rest, prn ice, call if persistent [id number] Neva Strong NP, [facility] Internal Medicine [address] [facility],[place] [address] 11/14/2018 13:43:31 11/14/2018 15:09:29 Type 2 diabetes mellitus 29406446 E11.9 follow Esophageal varices 16378 008 I85.00 banded Atrial fibrillation 4943 6004 I48.91 on eliquis Hypercholesterolemia 136 11628 E78.00 Hypothyroidism 18350266 E03.9 Essential hypertension 36542674 I10 well controlled , Diarrhea 05760026 R19.7 Eczema 21761919 L30.9 OTC eucerin BID, December [facility] Internal Medicine [address] [facility], [place] [address] 02/11/2019 13:57:01 02/11/2019 15:01:26 Abscess 107967481 L02.91 too swollen for proc today will give abx warm compress and gentle massage schedule i&d for next week Jaundice 97964709 R17 very mild has liver and gi specialist . seeing gi next week. seeing liver specialist in february for upper and lower endoscopy Nonalcohol ic steatohepatitis 168409924 K75.81 check u/s for ascites written order for ab u/s Dyspnea on exertion 6084 5006 R06.09 written order for cxr [id number] December [facility] Internal Medicine [address] [facility],[place] [address] 02/22/2019 14:14:29 02/22/2019 15:22:55 Abscess 381638122 L02.91 attempted to numb with 1.5 cc of lidocaine, but abscess was too swollen for complete anesthesia used 18 guage needle to create opening of which copious discharge was expressed will give additional week of abx warm compress and gentle massage schedule repeat i&d for next week Jaundice 39443437 R17 not apparent today has liver and gi specialist . seeing gi next week. seeing liver specialist in february for upper and lower endoscopy Nonalcohol ic steatohepatitis 485693736 K75.81 await us Dyspnea on exertion 6084 5006 R06.09 xr was clear will reevaluate at fu [id number] December [facility] Internal Medicine [address] [facility] [place] [address] 03/04/2019 14:01:30 03/04/2019 15:25:18 Abscess 109996184 L02.91 f/u as planned the , sooner if needed Jaundice 44121257 R17 not apparent today has liver and gi specialist . seeing gi next week. seeing liver specialist in february for upper and lower endoscopy Nonalcohol ic steatohepatitis 152288987 K75.81 await us results pt had us done last week Dyspnea on exertion 6084 5006 R06.09 xr was clear will reevaluate at fu Submammary intertrigo 24 2853516 L30.4 [id number] December [address] [place] [address] 03/13/2019 14:16:29 03/13/2019 14:37:51 Type 2 diabetes mellitus 73700433 E11.9 sees endocrinol ogy every 3 months will get labs with endo Esophageal varices 31319 008 I85.00 banded having endoscopy on 03/27 for another banding if needed Atrial fibrillation 4943 6004 I48.91 on eliquis Hypercholesterolemia 136 56697 E78.00 on lovastatin Hypothyroidism 59532517 E03.9 normal in january 2019 Essential hypertension 14511767 I10 well controlled , Diarrhea 15954581 R19.7 resolved Eczema 86005615 L30.9 resolved Insomnia 668191177 G47.0 0 rare use of lorazepam maybe once per month Vitamin D deficiency 347 18016 E55.9 [id number] Marina [facility] Internal Medicine [address] [facility] [place] [address] 05/21/2019 11:45:40 05/21/2019 12:20:38 Chronic tension-type headache 460049484 G44.229 ? stress related seem to be improving Type 2 luciano betes mellitus 04974162 E11.9 sees endocrinol ogy every 3 months will get labs with endo Essential hypertension 49575069 I10 well controlled [id number] [facility] Internal Medicine [address] [facility],[place] [address] 06/04/2019 16:00:31 06/04/2019 16:31:49 Type 2 diabetes mellitus 89281083 E11.9 sees endocrinol ogy every 3 months will get labs with endo Essential hypertension 28379128 I10 well controlled Temporal headache 171774 06 R51 Acute sinusitis 54865641 J01.90 will consider medrol dose pack if esr is normal may also consider flonase [id number] [facility] Internal Medicine [address] [facility], [place] [address] 07/15/2019 13:28:27 07/15/2019 14:30:04 Type 2 diabetes mellitus 74896811 E11.9 sees endocrinol ogy every 4 months will get labs with endo gets foot exa with endo had dm eye exam in september, due again in september Esophageal varices 49692 008 I85.00 banded had endo/cscop e 7/3 all normal Atrial fibrillation 4943 6004 I48.91 on eliquis Hypercholesterolemia 136 58312 E78.00 on lovastatin will have labs with endo Hypothyroidism 39519911 E03.9 normal in january 2019 Essential hypertension 32851720 I10 well controlled Insomnia 947262156 G47.0 0 using 2-3 times per week not sleeping well having trouble falling asleep lorazepam only helps intermitte ntly sometimes takes tylenol and that helps Body mass index 30+ - obesity 525781068 Z68.34 Active or passive immunization 273633787 Z23 had flu shot due for tdap next year Frontal headache 6110785 05 R51 [id number] [facility] Internal Medicine [address] [facility],[place] [address] 11/13/2019 15:00:05 11/13/2019 16:22:05 Type 2 diabetes mellitus 07935977 E11.9 sees endocrinol ogy every 4 months will get labs with endo gets foot exa with endo had dm eye exam in september, due again in september Esophageal varices 00229 008 I85.00 banded had endo/cscop e 7/3 all normal Atrial fibrillation 4943 6004 I48.91 on eliquis Hypercholesterolemia 136 32605 E78.00 on lovastatin will have labs with endo Hypothyroidism 17182265 E03.9 normal in january 2019 labs with endo usually Essential hypertension 93038271 I10 well controlled Insomnia 049116133 G47.0 0 sleeping better very rare need for lorazepam, maybe once a month Body mass index 30+ - obesity 027581348 Z68.34 Nausea 233381114 R11.0 try tums, evaluate diet if sx worsen consider f/u with gi Dizziness 618623256 R42 monitor, very mild Fatigue 51202165 R53.83 will see endo for that as well Vitamin D deficiency 347 55369 E55.9 Edema of nicolas stafford extremity 536383527 R60.0 she is on spironolac tone/lasix for liver started by GI seems likely it was related to diet already improving continue to monitor weights daily and call if increasing [id number] TRINO ZARAGOZA [facility] Internal Medicine [address] [facility],[place] [address] 02/26/2020 10:48:59 02/26/2020 11:34:18 Nausea and vomiting 03405778 R11.2 patient reports loss of appetite and vomiting for the last week [id number] TRINO ZARAGOZA [facility] Internal Medicine [address] [facility],[place] [address] 03/13/2020 15:32:36 03/13/2020 16:22:32 Atrial fibrillation 65625564 I48.91 stable Hepatic encephalopathy 36374113 K72.90 the patient reports brain fog Hepatorenal syndrome 512 44071 K76.7 will check ammonia level in the body and see how it is doing Jaundice 01680919 R17 pt is still jaundiced [id number] TRINO ZARAGOZA [facility] Internal Medicine [address] [facility],[place] [address] 06/05/2020 10:38:36 06/05/2020 14:21:19 Hepatic failure 75547960 K72.90 will recheck ammonia level if better can stop the lactulose and just monitor Acid reflux 969274443 K2 1.9 will try taking omeprazole in the morning and see if improvemen t can take two if needed Type 2 luciano betes mellitus 37574722 E11.9 stable per last blood draw [id number] TRINO ZARAGOZA [facility] Internal Medicine [address] [facility],[place] [address] 08/25/2020 14:10:45 08/25/2020 14:58:53 Hypercholesterolemia 74245417 E78.00 will check cholestero l Atrial fibrillation 4943 6004 I48.91 stable Essential hypertension 97810509 I10 BP excellent today Type 2 luciano forrest mellitus 26707736 E11.9 consulting with cardiology on adjustment s [id number] TRINO ZARAGOZA [facility] Internal Medicine [address] [facility],[place] [address] 11/25/2020 13:27:35 11/25/2020 14:57:41 Essential hypertension 40620468 I10 BP excellent today will need to fu with her cardiologi st Atrial fibrillation 4943 6004 I48.91 may be having runs of afib due to the fact her medication Type 2 luciano forrest mellitus 71845523 E11.9 consults with endo with A1c measuremen t will need to fu with them for BW Hypothyroidism 58734664 E03.9 will fu with endo tomorrow for lab work Depressive disorder 3548 9007 F32.9 will start on sertraline and fu to see how she is doing [id number] TRINO ZARAGOZA [facility] Internal Medicine [address] [facility],[place] [address] 01/04/2021 09:44:57 01/04/2021 10:38:55 Atrial fibrillation 14572993 I48.91 the patient was told by ER that she was having atrial fibrillati on Pain in [facility] hip joint 0978680785 81816 M25.551 possible back or hip pain XR lumbar spine normal at specialist told by specialist given liver failure safest thing to take is vicodin or percocet [id number] TRINO ZARAGOZA [facility] Internal Medicine [address] [facility],[place] [address] 04/07/2021 15:22:16 04/07/2021 15:56:03 Type 2 diabetes mellitus 09530708 E11.9 consults with endo with A1c measuremen t will need to fu with them for BW Atrial fibrillation 4943 6004 I48.91 the patient was told by ER that she was having atrial fibrillati on Essential hypertension 96146299 I10 BP excellent today will need to fu with her cardiologi st Hepatic failure 18429835 K72.90 will recheck ammonia level if better can stop the lactulose and just monitor Varicose v eins of lower extremity 57953022 I83.893 discussed US duplex for her varicose veins to see the extenttold patient to wear compressio n stockings Intermitte nt claudication 63865771 I73.9 will start with US duplex Steatosis of liver 1007 K76.0 has fu with specialist [id number] TRINO ZARAGOZA [facility] Internal Medicine [address] [facility],[place] [address] 07/14/2021 14:36:41 07/14/2021 15:35:20 Hypercholesterolemia 18405866 E78.2 recent check Abdominal mass 673827016 R19.02 will fu with US Type 2 luciano betes mellitus 11067881 E11.9 consults with endo with A1c measuremen t will need to fu with them for BW Steatosis of liver 1007 K76.0 has fu with specialist Atrial fibrillation 4943 6004 I48.0 stable Chronic he patic failure 289655666 K72.10 on transplant list, follows Hepatic encephalopathy 22386552 K72.10 stable on lactulose with recent test [id number] TRINO ZARAGOZA [facility] Internal Medicine [address] [facility],[place] [address] 08/18/2021 10:18:23 08/18/2021 12:37:00 Splenic infarction 78619121 D73.5 fu with ass Portal vei n thrombosis 67781027 I81 will fu with endo Atrial fibrillation 4943 6004 I48.0 stable Esophageal varices 42396 008 I85.00 has fu with endo to check for bleeds and if switch from Steatosis of liver 1007 K76.0 has fu with specialist as well [id number] Tony Toure DO [facility] Internal Medicine [address] [facility],[place] [address] 10/06/2021 08:14:09 10/06/2021 15:45:49 Type 2 diabetes mellitus 68558305 E11.9 will be rech and get a1c and will be seeing her in november Esophageal varices 97003 008 I85.00 stable but will need to be followed carefully as she is back on eliquis Atrial fibrillation 4943 6004 I48.0 quiet and asymptomat ic Intermitte nt claudication 55158028 I73.9 quiet Chronic he patic failure 521703293 K72.10 still waiting for liver transplant Essential hypertension 83562360 I10 quiet and stable 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 623316171 K72.90 back on lactulose and doing much better reviewed hospitaliz uyenion in deta[place] discussion re need to be diligent with meds while waiting for transplant [id number] TRINO ZARAGOZA [facility] Internal Medicine [address] [facility], [place] [address] 10/22/2021 08:46:19 10/22/2021 15:45:16 Atrial fibrillation 93445706 I48.0 stable Chronic he patic failure 213927402 K72.10 on transplant list, follows Esophageal varices 10293 008 I85.00 monitoring her bleeding Essential hypertension 14126383 I10 BP excellent today will need to fu with her cardiologi [id number] Tony Toure DO [facility] Internal Medicine [address] [facility],[place] [address] 12/06/2021 14:29:25 12/06/2021 15:01:19 Hypothyroidism 94479826 E03.9 Type 2 luciano betes mellitus 64735020 E11.9 will be rech and get a1c and will be seeing her in november Atrial fibrillation 4943 6004 I48.0 quiet and asymptomat ic Essential hypertension 24123734 I10 quiet and stable Chronic he patic failure 469106043 K72.10 still waiting for liver transplant Fatigue 41941772 R53.83 [id number] TRINO ZARAGOZA [facility] Internal Medicine [address] [facility], [place] [address] 01/31/2022 11:18:52 01/31/2022 12:07:22 Pressure ulcer 203209771 L89.899 will start on silvadene cream Candidiasis of skin 4988 3006 B37.2 given topical anti-funga l at home Atrial fibrillation 4943 6004 I48.0 stablestop ping eliquis and starting warfarin from specialist [id number] TRINO ZARAGOZA [facility] Internal Medicine [address] [facility] [place] [address] 03/02/2022 11:40:03 03/02/2022 16:36:21 Atrial fibrillation 15045372 I48.0 stable Edema of l ower extremity 046122629 R60.0 will increase lasix to 30 mg and recheck a CMP Gastroesop hageal reflux disease 131861065 K21.9 will fu with omeprazole Cirrhosis of liver K74.02 will recheck her ammonia level [id number] TRINO ZARAGOZA [facility] Internal Medicine [address] [facility] [place] [address] 04/01/2022 14:20:42 04/01/2022 15:36:34 Type 2 diabetes mellitus 49985415 E11.9 consults with [facility] with A1c measuremen t will need to fu with them for BW Essential hypertension 79327514 I10 BP excellent today will need to fu with her cardiologi st Cough 40543052 R05.1 will give tesslon perles for cough Chronic ki dney disease stage 3 853442116 N18.31 will recheck CMP in two weeks after increase of lasix Edema of l ower extremity 564708863 R60.0 will increase lasix to 40mg and recheck a CMP [id number] TRINO ZARAGOZA [facility] Internal Medicine [address] [facility], [place] [address] 06/22/2022 13:28:15 06/22/2022 14:25:21 Atrial fibrillation 01575306 I48.0 stableneed s refill warfarin Chronic ki dney disease stage 3 409671947 N18.31 stable Cirrhosis of liver 007 K74.02 stable [id number] TRINO ZARAGOZA [facility] Internal Medicine [address] [facility],[place] [address] 07/29/2022 14:42:13 08/01/2022 09:09:56 Vasculitis of the skin 20399569 L95.8 fu in two weeks Internatio nal normalized ratio above reference range 603449882 R79.1 monitor through clinic [id number] TRINO ZARAGOZA [facility] Internal Medicine [address] [facility] [address] 10/28/2022 08:24:24 10/28/2022 14:45:46 Atrial fibrillation 38314334 I48.0 stableback on eliquis Hypothyroidism 90632267 E03.8 will f/u with endo tomorrow for lab work Type 2 luciano betes mellitus 11355844 E11.9 consults with endo with A1c measuremen t Essential hypertension 21991865 I10 BP excellent today will need to fu with her cardiologi st Advance care planning 71 1367928 Z71.89 on file Active or passive immunization 463072806 Z23 patient advised she is due for flu shot, tdap & shingles Chronic ki dney disease stage 3 408259596 N18.31 stable Chronic he patic failure 002885281 K72.10 on transplant list, follows Transplant ed liver present 836869188 Z94.4 doing really well [id number] TRINO ZARAGOZA [facility] Internal Medicine [address] [facility],[place] [address] 01/25/2023 16:20:44 01/25/2023 17:00:20 Edema of lower extremity 092638904 R60.0 will fu with transplant surgeon [id number] TRINO ZARAGOZA [facility] Internal Medicine [address] [facility],[place] [address] 02/07/2023 15:32:41 02/07/2023 17:23:08 Edema of lower extremity 769927043 R60.0 agreed to US venous and US arterial Splenic infarction 98442 003 D73.5 fu with [facility] Chronic ki dney disease stage 3 500905125 N18.31 stable Intermitte nt claudication 35131776 I73.9 will start with US duplex Peripheral venous insufficiency 86751623 I87.2 will set up with both duplex and venous Skin ulcer 28790056 L98. 491 will set up with US arterial and US duplex Transplant ed liver present 423815081 Z94.4 doing really well [id number] TRINO ZARAGOZA [facility] Internal Medicine [address] [facility],[place] [address] 05/16/2023 08:00:07 05/16/2023 16:05:24 Portal vein thrombosis 94005099 I81 will fu with endo Splenic infarction 95260 003 D73.5 fu with [employer] Atrial fibrillation 4943 6004 I48.0 stableback on eliquis Essential hypertension 26193577 I10 BP excellent today will need to fu with her cardiologi st Gastroesop hageal reflux disease 606924932 K21.9 will fu with omeprazole Hypercholesterolemia 136 86434 E78.2 recent check Hypothyroidism 79882221 E03.8 fu with endo Intermitte nt claudication 16370727 I73.9 stable Pulmonary hypertension 44555815 I27.0 stable [id number] TRINO ZARAGOZA [facility] Internal Medicine [address] [facility], [place] [address] 08/21/2023 15:35:21 08/21/2023 16:41:53 Trigger finger of right hand 4183131797 5848797 M65.311 will set up with ortho Tendinitis of left gluteal tendon 7820908858 56907 M76.02 told her to use a cushion or get a new chair Candidiasis of skin 4929 3006 B37.2 will have her use her nystatin on her left armpit [id number] TRINO ZARAGOZA [facility] Internal Medicine [address] [facility], [place] [address] 12/01/2023 14:15:39 12/01/2023 15:28:21 Atrial fibrillation 98436898 I48.0 stableback on eliquis Asthma 594759912 J45.40 needs alt to flovent Essential hypertension 09979938 I10 f/u with her cardiologi st Candidiasis of skin 4919 3006 B37.2 stablewill take over the ketoconazo le cream Lipoma of back 578910917 D17.1 will monitor [id number] TRINO ZARAGOZA [facility] Internal Medicine [address] [facility] [address] 02/06/2024 10:59:49 02/06/2024 11:45:50 Depression screening 833146810 Z13.31 stable Acute urin sachin tract infection 393442071 N39.0 will start on amoxicilli n Lesion of liver 77536447 0 K72.10 stable Type 2 luciano betes mellitus 01566542 E11.9 consults with endo with A1c measuremen t Transplant ed liver present 801317770 Z94.4 doing really well Peripheral vascular disease 713718016 I73.9 stable Pulmonary hypertension 07652141 I27.0 stable Chronic ki dney disease stage 3 793498891 N18.31 stable Skin ulcer 20861514 L98. 491 stable [id number] TRINO ZARAGOZA [facility] Internal Medicine [address] [facility],[place] [address] 03/12/2024 14:17:11 03/13/2024 09:24:06 Depression screening 939645650 Z13.31 stable Abdominal pain 62856020 R10.10 agreed to US abd and pelviswill r/o any other causes for the upper abdominal and pelvic discomfort s/p surgeryhas not had an imaging since November last year to recheck the area Acute urin sachin tract infection 081357879 N39.0 will set up with a recheck her urine to make sure resolution of the utiagreed to this [id number] TRINO ZARAGOZA [facility] Internal Medicine [address] [facility],[place] [address] 06/26/2024 14:17:27 06/26/2024 14:58:48 Chronic kidney disease stage 3 801073880 N18.31 stable Hypothyroidism 73964409 E03.8 f/u with endo in October Type 2 luciano betes mellitus [id number] E11.9 consults with endo in October Health Concerns Section Related Observation LastModified by Organization Detai ls LastModified Time None Recorded Concern Status LastModified by Organization Details LastModified Time None Recorded Advance Directives Directive None Recorded Payers Encounter Date Sequence Insurance Name Policy Number Policy Mayers Covered Member ID Mayers Member ID Guarantor Name 08/21/2023 1 [place] [employer] Elysia Valle [id number] Elysia Valle 08/21/2023 2 [place] [id number] Elysia Valle [id number] Elysia Valle 12/01/2023 1 [place] [facility] Elysia Valle [id number] 4 Elysiareyna Valle 12/01/2023 2 [place] [id number] Elysia Valle [id number] Elysiareyna Valle 02/06/2024 1 MEDICARE B-[place]: [facility] Elysia Valle [id number] 4 Elysiareyna Valle 02/06/2024 2 [place] [id number] Elysia Valle [id number] Elysiareyna Valle 03/12/2024 1 MEDICARE B-[place]: [facility] Elysia Valle [id number] 4 Elysiareyna Valle 03/12/2024 2 [place] [id number] Elysia Valle [id number] Elysiareyna Valle 06/26/2024 1 MEDIC[place]: [facility] Elysia Valle [id number] 4 Elysiareyna Valle 06/26/2024 2 [place] [id number] Elysia Valle [id number] Elysiareyna Valle Notes Date Note Type Note Provider Name a nd Address Organization Details Recorded Time 3 text/html f/u appointment trigger finger right hand; right thumb: agreed to ortho referralthe patient has a worn out chair that is causing her some gluteal painsuggested cushion for that chair started on digoxin for the afibcould be causing her fatigue due to lower HRtold to discuss with cardio, may now be too long for herdiscussed maybe needs an adjusted dose will let me know the patient reports that she has a fungal infection of her left axilla [address] [facility], [place], [address], [facility] 08/21/2023 16:23:09 4 text/html medication check atrial fibrillation: stable, no issues asthma: needs to switch out to asmanex from flovent which is not covered anymore anxiety/insomnia: hasn't needed the xanax as much, sleeping and anxiety has been stable HTN: stable will take over ketoconazole from [facility] [address] [place], [address], [facility] 12/01/2023 15:10:13 4 text/html c/o elevated WBC, transplant surgeon told to call here has a UTI, positive leuks, nitrateswill send out for culture to see if there is a resistant strain she has in her urinesafest option is amoxicillin given her medical history will f/u with patient afterwards still having something some back pain into her ribssounds like costal chrondritiswill give her lidocaine [address] [place], [address], [facility] 02/06/2024 11:36:35 4 text/html 3 mos f/u the patient was having some burning with the lidocaine patchesbut the pain seems to be better the patient reports she is still having some upper abdominal and pelvic painh/x of transplant, hasn't had imaging in a year since her CT with her transplant teamagreed to f/u with US to start to r/o any changes will also recheck her urine to make sure resolution [address] [place], [address], [facility] 03/12/2024 14:54:00 4 text/html 3 mos f/u the patient is getting shooting her hands bilaterallywith two ganglion cysts in her handsprobable arthritis, reports that it is not constant the patient was found to have a lot of scarring around her new liver, is having a biospy donewill f/u with transplant surgeonrecent CT confirmed the scarring, waiting for an appointment the patient is gaining weight as well, up to 232, was 203 in Octobersuggested discussing adding a GLP-1 inhibitor now that she is past 10.3%will f/u with endocrine BP: today in the office the patient BP is 128/84 R arm sitting the patient is doing well on the BP medication with no side effects and no adjustment of their medications needed today at the appointment well-controlled on medication denies chest pain, sob, ankle swelling, orthopnea, palpitations [address] [facility], [place], [address], [facility] 06/26/2024 14:43:04 OBGyn Episode No OBEpisode recorded.
--- OUTSIDE RECORDS SUMMARY | 2024-10-02 13:21 | XMS_ITS ---
[facility] Organization [facility] [place] Address [address] [place] [address] Care Team Providers Care Kettle Worker Name Role Phone Tony Toure MD Primary Care Provider Munira Heller Unavailable [phone] Allergies Allergen (clinical drug ingredient) Drug/Non Drug Allergy documented on EMR Reaction Allergy Type Onset Date Status rosuvastatin Rosuvastatin Calcium swelling Drug Allergy Active Tramadol & Dietary Manage Prod swelling Drug Allergy Active REASON FOR VISIT At Risk Footcare Medications Medication SIG (Take, Route, Frequency, Duration) Notes Start Date End Date Status Sodium Chloride 1 GM as directed Orally Not-Taking Senna Not-Taking Sulfamethoxazole-Trime thoprim 800-160 MG TAKE 1 TABLET BY MOUTH EVERY 12 HOURS FOR 5 DAYS Oral for 5 Not-Taking [facility] Chewable C with Layne Hips 500 MG TAKE 1 TABLET BY MOUTH TWICE A DAY Oral for 30 Not-Taking Furosemide 40 MG TAKE 1 TABLET BY MOUTH EVERY DAY Orally Not-Taking Omeprazole 40 MG TAKE 1 CAPSULE BY MOUTH TWICE A DAY Oral for 90 Not-Taking D3 Super Strength 50 MCG (1999 UT) TAKE 2 CAPSULES BY MOUTH EVERY DAY Oral for 90 Not-Taking Spironolactone 100 MG TAKE 1 TABLET BY MOUTH EVERY DAY Oral for 90 Not-Taking Xifaxan 550 MG TAKE 1 TABLET BY MOUTH EVERY 12 HOURS Oral for 30 Not-Taking Lactulose 10 GM/15ML TAKE 15 ML BY MOUTH TWICE A DAY FOR 30 DAYS. Oral for 30 Not-Taking Docusate Sodium 100 MG 1 capsule as need ed Orally Once a day for 30 day(s) Not-Taking metFORMIN HCl 500 MG TAKE 1 TABLET BY MOUTH EVERY DAY Oral for 90 Not-Taking Nystatin 806551 U/ML as directed Mouth/Throat Not-Taking Nadolol 20 MG TAKE 1 TABLET BY MOUTH EVERY DAY Oral for 90 Not-Taking Trulicity 1.5 MG/0.5ML INJECT 1.5 MG (1 PEN) INTO THE SKIN ONCE A WEEK Subcutaneous for 84 Not-Taking Fluticasone Propionate (Inhal) 250 MCG/BLIST 1 puff Inhalation Twice a day Not-Taking Prednisone Not-Tommy ornelas Extra Depth Orthopedic Shoes (1 Pair) with Customized Heat Molded Multidensity Innersoles (3 Pair) as directed Dx: NIDDM/Polyneuropathy (E11.42), Hammertoe Foot Deformity (M20.41,M20.42), Preulcerative Skin Lesion(s) (L85.1 08/31/2022 Not-Taking Vitamin D3 Not-Tommy ornelas Flecainide Acetate 100 MG TAKE 1 TABLET BY MOUTH TWICE A DAY Oral for 90 Not-Taking LORazepam 0.5 MG 1 tablet at bedtime as needed Orally Once a day PRN Not-Taking protonix 1 tab Oral for 14 days Not-Taking Bactrim Not-Taking Acyclovir 800 MG 1 tablet Orally Twice a day for 10 day(s) Not-Taking Clotrimazole-Betametha sone 1-0.05 % APPLY TO AFFECTED AREA TWICE A DAY IN THE MORNING AND IN THE EVENING FOR 2 WEEKS External for 7 PRN Not-Taking Digoxin 125 MCG 1 tablet Orally Not-Taking Ferrous Sulfate 325 (65 Fe) MG TAKE 1 TABLET BY MOUTH TWICE A DAY Oral for 90 Not-Taking Flovent Diskus 250 MCG/ACT INHALE 1 PUFF TWICE A DAY BY FOR 90 DAYS. Inhalation for 90 Not-Taking Ondansetron HCl 4 MG TAKE 1 TABLET BY MOUTH EVERY 6 HOURS NEEDED FOR NAUSEA OR VOMITING Oral for 30 PRN Active Eliquis 5 MG TAKE 1 TABLET BY MOUTH TWICE A DAY Oral for 90 Active Restasis 0.05 % INSTILL 1 DROP INTO BOTH EYES TWICE A DAY Ophthalmic for 90 Active Lovastatin 40 MG TAKE 1 TABLET BY MOUTH AT BEDTIME EVERY NIGHT Oral for 90 Active Magnesium Oxide 400 (240 Mg) MG TAKE 2 TABLETS BY MOUTH 3 TIMES A DAY Oral for 90 Active Synthroid 137 MCG TAKE 1 TABLET BY MOUTH EVERY DAY Oral for 90 Active HumaLOG KwikPen 100 UNIT/ML INJECT UP TO 30 UNITS DIRECTED THREE TIMES DAILY AFTER MEALS Subcutaneous for 90 Active Mycophenolate Mofetil 250 MG 2 capsules Orally Twice a day for 30 day(s) Active Lantus SoloStar 100 UNIT/ML INJECT 50 UNITS INTO SKIN *PLUS 2 UNITS TO PRIME EACH DOSE* Subcutaneous for 58 Active Pain Extra Strength 500 MG 1 tablet as needed Orally every 6 hrs Active Tacrolimus 0.2 MG as directed Orally Active Ergocalciferol 10661 IU as directed Orally Active Triamterene-HCTZ Act stephan Torsemide 20 MG 2 tablets Orally Twice daily Active Metoprolol Succinate 100 MG 1 capsule Orally twice a day Active Pantoprazole Sodium Active Multivitamin Active Xanax 0.5 MG 1 tablet Orally Twice a day Active Arnuity Ellipta 200 MCG/ACT 1 puff Inhalation Once a day Active Social History Tobacco Use: Social History Observation Description Date Details (start date - stop date) Former Smoker NA - NA Tobacco Use/Smoking Question Answer Notes Are you a: former smoker Additional Findings: Tobacco Non-User Current no n-smoker Alcohol Screen Question Answer Notes Did you have a drink containing alcohol in the p ast year? No Points 0 Interpretation Negative Tobacco use other than smoking: Question Answer Notes Are you an other tobacco user? No Vital Signs Height 5ft7in in 03/19/2024 Weight 214 lbs 03/19/2024 BMI 33.51 kg/m2 03/19/2024 Blood pressure systolic 89 mm Hg 03/19/20 24 Blood pressure diastolic 70 mm Hg 024 Encounters Encounter Location Date Provider Diagnosis [facility] [address] [address] 03/19/2024 Munira Crews Tinea unguium B35.1 and Type 2 diabetes mellitus with polyneuropathy E11.42 Assessments Encounter Date Diagnosis (ICD Code) Assessment Notes Treatment Notes Treatment Clinical Notes Section Notes 03/19/2024 Tinea unguium (ICD-10 - B35.1) 03/19/2024 Type 2 diabetes mellitus with polyneuropathy (ICD-10 - E11.42) Plan Of Treatment Next Appt Details Follow Up: 2 Months, Reason: Provider Name:Munira moraes, 10/30/2024 02:45:00 PM, [address] [place] [address], [id number], Procedure Notes * Category Sub-Category Detail Notes Debride Nail 6-10 Nail debridement Nail debridem ent performed extensively to reduce/remove overall nail length and girth, subungual debris, and necrotic tissue, by manual and electrical means with use of a nail nipper and/or dremel, to more viable healthy nail plate or bed tissue 6-10. Silver nitrate used for any petechial bleeding as necessary. Patient chooses, no pharmaceutical tx (39720) Keratoma Treatment Parring or Cutting o f Benign Hyperkeratotic Lesion(s) 13016 (2-4 Lesions) - The Benign hyperkeratotic lesions, as described above were pared, and/or cut utilizing a sterile #15 blade, tissue nippers, and/or dremel Progress Notes * Elysia VALLEDOB:1960 (64 yo F)Acc No.[id number]:03/19/2024 Progress Note Patient:?Elysia Valle Provider:?Munira Crews DPM :1960???Age:64 Y???Sex:Female D ate:03/19/2024 Address:[address] [place], [place] [id number] Pcp:Tony Toure MD Subjective: * Chief Complaints: * ???At Risk Footcare * HPI: ???At Risk footcare:?Pt States Last PCP Visit:?Date?03/11/2024 * ROS:?General/Constitutional:?Nausea?denies, denies.?Vomiting?denies, denies.?Hunger Thirst?denies, denies.?Loss appetite?denies, denies.?Chills?denies, denies.?Fatigue?denies, denies.?Fever?denies, denies.?Night Sweats denies, denies.?Unexplained weight loss?denies, denies.?Unexplained weight gain?denies, denies.?HEENTM:?Dentures?denies, denies.?Dizziness?denies, denies.?Glasses/contacts?admits, admits.?Retinopathy?denies, denies.?Blurred/double vision?denies, denies.?TMJ?denies, denies.?Discharge/drainage?denies, denies.?Implants?denies, denies.?Sore throat?denies, denies.?Dental implants?denies, denies.?Hard of hearing ?denies, denies.?Difficulty chewing/swallowing/speaking?denies, denies.?Nose bleeds?denies, denies.?Sore mouth?denies, denies.?Respiratory:?On Oxygen?denies, denies.?Pneumonia/pleurisy?denies, denies.?Bronchitis?denies, denies.?Emphysema?denies, denies.?Coughing?denies, denies.?Cough blood?denies, denies.?Shortness of breath?denies, denies.?Wheezing?denies, denies.?Cardiovascular:?Pacemaker?denies, denies.?MVP?denies, denies.?WPW?denies, denies.?CHF?denies, denies.?Heart attack?denies, denies.?Septal defect?denies, denies.?Rapid beat?denies, denies.?Chest pain ?denies, denies.?Atrial Fib.?denies, denies.?Murmur/Palpitations?denies, denies.?Gastrointestinal:?Hemorrhoids?denies, denies.?Stomach/Abdominal pain?denies, denies.?Dark blood stool?denies, denies.?Irritable bowel ?denies, denies.?Constipation?denies, denies.?Diarrhea?denies, denies.?Hematology:?Swelling?denies, denies.?Clots?denies, denies.?Varicose Veins?denies, denies.?Bruising?denies, denies.?Bleeding problem?denies, denies.?Genitourinary:?Blood urine?denies, denies.?Frequent/Painfu/urination/bladder control?denies, denies.?Kidney stones?denies, denies.?Infection (UTI)?denies, denies.?Nephropathy?denies, denies.?sex trans dis (STD)?denies, denies.?Prostate?denies, denies.?Musculoskeletal:?Hammertoes?denies, denies.?Bunions?denies, denies.?Back Pain?denies, denies.?Muscle Cramps/ Resting?denies, denies.?Muscle cramps / walking?denies, denies.?Generalized aches and pains?admits, denies.?Weakness?denies, denies.?Integ.:?Schaffer?denies, denies.?Scars?denies, denies.?Corns/calluses?denies, denies.?Ingrown nails?denies, denies.?Painful nails?denies, denies.?Open Sores?denies, denies.?Rashes?denies, denies.?Neurologic:?Difficulty sleeping?denies, denies.?Brain disorder?denies, denies.?Numbness?admits, admits.?Balance trouble?denies, denies.?Confusion?denies, denies.?Fainting/blackouts?denies, denies.?Tingling?denies, denies.?Tremors?denies, denies.? * Medical History:? * Surgical History:?liver dee splant 07/31/2022hysterectomy 02/1999Surgery for infected incision area 09/2022 * Hospitalization/Major Diagno stic Procedure:?[facility] became infected - 3 night stay [facility] - Vomiting 04/2023 * Family History:?Father: dece ased, diagnosed with Diabetic - NIDDM, Other malignant neoplasm of unspecified site.?Daughter(s): .?Mother: diagnosed with Diabetic - NIDDM.?Siblings: diagnosed with Other malignant neoplasm of unspecified site, Diabetic - NIDDM, Unspecified essential hypertension.? * Social History:?Tobacco Use:?Tobacco Use/Smoking?Are you a:?former smoker ?Additional Findings: Tobacco Non-User?Current non-smoker ?Tobacco use other than smoking?Are you an other tobacco user??No ???Drugs/Alcohol:?Drugs?Have you used drugs other than those for medical reasons in the past 12 months??No ?Alcohol Screen?Did you have a drink containing alcohol in the past year??No ?Points?0 ?Interpretation?Negative ???Miscellaneous:?no Caffeine, 1 cup of tea occassionally. ?no Children. ?no Exercise. ?Marital status: . ?Occupation: Retired. * Medications:?TakingArnuity E llipta 200 MCG/ACT Aerosol Powder Breath Activated 1 puff Inhalation Once a dayXanax 0.5 MG Tablet 1 tablet Orally Twice a dayTriamterene- HCTZ Pantoprazole Sodium Multivitamin Torsemide 20 MG Tablet 2 tablets Orally Twice dailyMetoprolol Succinate 100 MG Capsule ER 24 Hour Sprinkle 1 capsule Orally , Notes: twice a dayErgocalciferol 22759 IU Tablet as directed Orally Pain Extra Strength 500 MG Tablet 1 tablet as needed Orally every 6 hrsTacrolimus 0.2 MG Packet as directed Orally Mycophenolate Mofetil 250 MG Capsule 2 capsules Orally Twice a dayLantus SoloStar 100 UNIT/ML Solution Pen-injector INJECT 50 UNITS INTO SKIN *PLUS 2 UNITS TO PRIME EACH DOSE* Subcutaneous Restasis 0.05 % Emulsion INSTILL 1 DROP INTO BOTH EYES TWICE A DAY Ophthalmic Lovastatin 40 MG Tablet TAKE 1 TABLET BY MOUTH AT BEDTIME EVERY NIGHT Oral Synthroid 137 MCG Tablet TAKE 1 TABLET BY MOUTH EVERY DAY Oral HumaLOG KwikPen 100 UNIT/ML Solution Pen-injector INJECT UP TO 30 UNITS DIRECTED THREE TIMES DAILY AFTER MEALS Subcutaneous Magnesium Oxide 400 (240 Mg) MG Tablet TAKE 2 TABLETS BY MOUTH 3 TIMES A DAY Oral Ondansetron HCl 4 MG Tablet TAKE 1 TABLET BY MOUTH EVERY 6 HOURS NEEDED FOR NAUSEA OR VOMITING Oral , Notes: PRNEliquis 5 MG Tablet TAKE 1 TABLET BY MOUTH TWICE A DAY Oral Taking Arnuity Ellipta 200 MCG/ACT Aerosol Powder Breath Activated 1 puff Inhalation Once a dayTaking Xanax 0.5 MG Tablet 1 tablet Orally Twice a dayTaking Triamterene-HCTZ Taking Pantoprazole Sodium Taking Multivitamin Taking Torsemide 20 MG Tablet 2 tablets Orally Twice dailyTaking Metoprolol Succinate 100 MG Capsule ER 24 Hour Sprinkle 1 capsule Orally , Notes: twice a dayTaking Ergocalciferol 46546 IU Tablet as directed Orally Taking Pain Extra Strength 500 MG Tablet 1 tablet as needed Orally every 6 hrsTaking Tacrolimus 0.2 MG Packet as directed Orally Taking Mycophenolate Mofetil 250 MG Capsule 2 capsules Orally Twice a dayTaking Lantus SoloStar 100 UNIT/ML Solution Pen-injector INJECT 50 UNITS INTO SKIN *PLUS 2 UNITS TO PRIME EACH DOSE* Subcutaneous Taking Restasis 0.05 % Emulsion INSTILL 1 DROP INTO BOTH EYES TWICE A DAY Ophthalmic Taking Lovastatin 40 MG Tablet TAKE 1 TABLET BY MOUTH AT BEDTIME EVERY NIGHT Oral Taking Synthroid 137 MCG Tablet TAKE 1 TABLET BY MOUTH EVERY DAY Oral Taking HumaLOG KwikPen 100 UNIT/ML Solution Pen-injector INJECT UP TO 30 UNITS DIRECTED THREE TIMES DAILY AFTER MEALS Subcutaneous Taking Magnesium Oxide 400 (240 Mg) MG Tablet TAKE 2 TABLETS BY MOUTH 3 TIMES A DAY Oral Taking Ondansetron HCl 4 MG Tablet TAKE 1 TABLET BY MOUTH EVERY 6 HOURS NEEDED FOR NAUSEA OR VOMITING Oral , Notes: PRNTaking Eliquis 5 MG Tablet TAKE 1 TABLET BY MOUTH TWICE A DAY Oral Not-Taking/PRNFerrous Sulfate 325 (65 Fe) MG Tablet TAKE 1 TABLET BY MOUTH TWICE A DAY Oral Flovent Diskus 250 MCG/ACT Aerosol Powder Breath Activated INHALE 1 PUFF TWICE A DAY BY FOR 90 DAYS. Inhalation Digoxin 125 MCG Tablet 1 tablet Orally Bactrim LORazepam 0.5 MG Tablet 1 tablet at bedtime as needed Orally Once a day, Notes: PRNprotonix 1 tab Oral Acyclovir 800 MG Tablet 1 tablet Orally Twice a dayClotrimazole-Betamethasone 1-0.05 % Cream APPLY TO AFFECTED AREA TWICE A DAY IN THE MORNING AND IN THE EVENING FOR 2 WEEKS External , Notes: PRNFlecainide Acetate 100 MG Tablet TAKE 1 TABLET BY MOUTH TWICE A DAY Oral Extra Depth Orthopedic Shoes (1 Pair) with Customized Heat Molded Multidensity Innersoles (3 Pair) as directed Dx: NIDDM/Polyneuropathy (E11.42), Hammertoe Foot Deformity (M20.41,M20.42), Preulcerative Skin Lesion(s) (L85.1Vitamin D3 Fluticasone Propionate (Inhal) 250 MCG/BLIST Aerosol Powder Breath Activated 1 puff Inhalation Twice a dayPrednisone Nystatin 036087 U/ML Suspension Reconstituted as directed Mouth/Throat Nadolol 20 MG Tablet TAKE 1 TABLET BY MOUTH EVERY DAY Oral Docusate Sodium 100 MG Capsule 1 capsule as needed Orally Once a daymetFORMIN HCl 500 MG Tablet TAKE 1 TABLET BY MOUTH EVERY DAY Oral Trulicity 1.5 MG/0.5ML Solution Pen-injector INJECT 1.5 MG (1 PEN) INTO THE SKIN ONCE A WEEK Subcutaneous Xifaxan 550 MG Tablet TAKE 1 TABLET BY MOUTH EVERY 12 HOURS Oral Lactulose 10 GM/15ML Solution TAKE 15 ML BY MOUTH TWICE A DAY FOR 30 DAYS. Oral D3 Super Strength 50 MCG (2000 UT) Capsule TAKE 2 CAPSULES BY MOUTH EVERY DAY Oral Spironolactone 100 MG Tablet TAKE 1 TABLET BY MOUTH EVERY DAY Oral Omeprazole 40 MG Capsule Delayed Release TAKE 1 CAPSULE BY MOUTH TWICE A DAY Oral Furosemide 40 MG Tablet TAKE 1 TABLET BY MOUTH EVERY DAY Orally Sulfamethoxazole-Trimethoprim 800-160 MG Tablet TAKE 1 TABLET BY MOUTH EVERY 12 HOURS FOR 5 DAYS Oral [facility] Chewable C with Layne Hips 500 MG Tablet Chewable TAKE 1 TABLET BY MOUTH TWICE A DAY Oral Sodium Chloride 1 GM Tablet as directed Orally Senna Medication List reviewed and reconciled with the patientNot-Taking/PRN Ferrous Sulfate 325 (65 Fe) MG Tablet TAKE 1 TABLET BY MOUTH TWICE A DAY Oral Not-Taking/PRN Flovent Diskus 250 MCG/ACT Aerosol Powder Breath Activated INHALE 1 PUFF TWICE A DAY BY FOR 90 DAYS. Inhalation Not- Taking/PRN Digoxin 125 MCG Tablet 1 tablet Orally Not-Taking/PRN Bactrim Not-Taking/PRN LORazepam 0.5 MG Tablet 1 tablet at bedtime as needed Orally Once a day, Notes: PRNNot-Taking/PRN protonix 1 tab Oral Not-Taking/PRN Acyclovir 800 MG Tablet 1 tablet Orally Twice a dayNot-Taking/PRN Clotrimazole-Betamethasone 1-0.05 % Cream APPLY TO AFFECTED AREA TWICE A DAY IN THE MORNING AND IN THE EVENING FOR 2 WEEKS External , Notes: PRNNot-Taking/PRN Flecainide Acetate 100 MG Tablet TAKE 1 TABLET BY MOUTH TWICE A DAY Oral Not-Taking/PRN Extra Depth Orthopedic Shoes (1 Pair) with Customized Heat Molded Multidensity Innersoles (3 Pair) as directed Dx: NIDDM/Polyneuropathy (E11.42), Hammertoe Foot Deformity (M20.41,M20.42), Preulcerative Skin Lesion(s) (L85.1Not-Taking/PRN Vitamin D3 Not-Taking/PRN Fluticasone Propionate (Inhal) 250 MCG/BLIST Aerosol Powder Breath Activated 1 puff Inhalation Twice a dayNot- Taking/PRN Prednisone Not-Taking/PRN Nystatin 038814 U/ML Suspension Reconstituted as directed Mouth/Throat Not-Taking/PRN Nadolol 20 MG Tablet TAKE 1 TABLET BY MOUTH EVERY DAY Oral Not-Taking/PRN Docusate Sodium 100 MG Capsule 1 capsule as needed Orally Once a dayNot-Taking/PRN metFORMIN HCl 500 MG Tablet TAKE 1 TABLET BY MOUTH EVERY DAY Oral Not-Taking/PRN Trulicity 1.5 MG/0.5ML Solution Pen-injector INJECT 1.5 MG (1 PEN) INTO THE SKIN ONCE A WEEK Subcutaneous Not-Taking/PRN Xifaxan 550 MG Tablet TAKE 1 TABLET BY MOUTH EVERY 12 HOURS Oral Not-Taking/PRN Lactulose 10 GM/15ML Solution TAKE 15 ML BY MOUTH TWICE A DAY FOR 30 DAYS. Oral Not-Taking/PRN D3 Super Strength 50 MCG (2000 UT) Capsule TAKE 2 CAPSULES BY MOUTH EVERY DAY Oral Not-Taking/PRN Spironolactone 100 MG Tablet TAKE 1 TABLET BY MOUTH EVERY DAY Oral Not- Taking/PRN Omeprazole 40 MG Capsule Delayed Release TAKE 1 CAPSULE BY MOUTH TWICE A DAY Oral Not-Taking/PRN Furosemide 40 MG Tablet TAKE 1 TABLET BY MOUTH EVERY DAY Orally Not-Taking/PRN Sulfamethoxazole-Trimethoprim 800-160 MG Tablet TAKE 1 TABLET BY MOUTH EVERY 12 HOURS FOR 5 DAYS Oral Not-Taking/PRN [facility]S Chewable C with Layne Hips 500 MG Tablet Chewable TAKE 1 TABLET BY MOUTH TWICE A DAY Oral Not-Taking/PRN Sodium Chloride 1 GM Tablet as directed Orally Not-Taking/PRN Senna Medication List reviewed and reconciled with the patient * Allergies:?Tramadol & Dietar y Manage Prod: swellingRosuvastatin Calcium: swellingyes[Allergies Verified] Objective: * Vitals:?Ht: 5ft7in, Wt:214, BMI:33.51, Shoe size: 9.5, BP:89/70 mm Hg, BS: not taken, Ht-cm: 170.18 cm, Wt-k.07 kg. * Examination: ???Ophthalmology Referral: ?DIABETES EYE EXAM?Neurological: ?SENSORY:?Neurological exam demonstrates , reduced light touch sensation , reduced sharp/dull pin prick discrimination , reduced vibration sensation , reduced proprioception sensation , in a stocking fashion , plantar aspects , 5.07 monofilament test performed at plantar aspects of 5 varied sites per foot shows sensation , reduced , at Forefoot.?Nails: ?NAILS are:?Elongated, overgrown, dystrophic, lytic, greater than 3mm thick, discolored and friable with crumbly malodorous subungual debris , with dull to no pain on palpation due to neuropathy , 1-5 B/L.?Dermatologic: ?SKIN FINDINGS:?Skin exam reveals Keratotic lesion(s) located at TA T5 , T6, T7, T1?.? Assessment: * Assessment: 1.?Tinea unguium - B35.1?2.? Type 2 diabetes mellitus with polyneuropathy - E11.42 (Primary)? Plan: * Treatment: * Procedures:?Debride Nail 6-10:?Nail debridement?Nail debridement performed extensively to reduce/remove overall nail length and girth, subungual debris, and necrotic tissue, by manual and electrical means with use of a nail nipper and/or dremel, to more viable healthy nail plate or bed tissue 6-10. Silver nitrate used for any petechial bleeding as necessary. Patient chooses, no pharmaceutical tx (50623).?Keratoma Treatment:?Parring or Cutting of Benign Hyperkeratotic Lesion(s)?67303 (2-4 Lesions) - The Benign hyperkeratotic lesions, as described above were pared, and/or cut utilizing a sterile #15 blade, tissue nippers, and/or dremel.? * Procedure Codes:?00780 DEBRI DE NAIL, 6 OR MORE, Modifiers: XS 44283 TRIM SKIN LESIONS, OVER 4, Modifiers: XS * Follow Up:?2 Months * Images: * Sign off status: Completed true * Provider:?Munira Crews DPM Date:? Generated for Irma romo/Virgie/eTransmitting on:?10/02/2024 01:20 PM EST History and Physical Notes * HPI (History of Present Illness) Category Sub-Category Detail Notes Category Not es At Risk footcare Pt States Last PCP Visit: Date: 4 Examination Category Sub-Category Detail Notes Category Not es Neurological SENSORY: Neurological exa m demonstrates , reduced light touch sensation , reduced sharp/dull pin prick discrimination , reduced vibration sensation , reduced proprioception sensation , in a stocking fashion , plantar aspects , 5.07 monofilament test performed at plantar aspects of 5 varied sites per foot shows sensation , reduced , at Forefoot Dermatologic SKIN FINDINGS: Skin exam reveal s Keratotic lesion(s) located at TA T5 , T6, T7, T1 Ophthalmology Referral DIABETES EYE EXAM Diabeti c Retinopathy Screening:: No Findings of Diabetic Eye Exam:: retinopa thy Nails NAILS are: Elongated, overg rown, dystrophic, lytic, greater than 3mm thick, discolored and friable with crumbly malodorous subungual debris , with dull to no pain on palpation due to neuropathy , 1-5 B/L
--- OUTSIDE RECORDS SUMMARY | 2024-10-02 13:21 | XMS_ITS | Patient Health Record ---
Author Organization [facility] Address [address] [place] [address] Care Team Providers Care Dry Room Operator Name Role Phone Tony Toure MD Primary Care Provider Munira Heller Unavailable [phone] Allergies Allergen (clinical drug ingredient) Drug/Non Drug Allergy documented on EMR Reaction Allergy Type Onset Date Status rosuvastatin Rosuvastatin Calcium swelling Drug Allergy Active Tramadol & Dietary Manage Prod swelling Drug Allergy Active Reason For Referral No Information Medications Medication SIG (Take, Route, Frequency, Duration) Notes Start Date End Date Status Tacrolimus 0.2 MG as directed Orally Active Furosemide 40 MG TAKE 1 TABLET BY MOUTH EVERY DAY Orally Not-Taking Pain Extra Strength 500 MG 1 tablet as needed Orally every 6 hrs Active Fluticasone Propionate (Inhal) 250 MCG/BLIST 1 puff Inhalation Twice a day Not-Taking Omeprazole 40 MG TAKE 1 CAPSULE BY MOUTH TWICE A DAY Oral for 90 Not-Taking Ergocalciferol 69712 IU as directed Orally Active Vitamin D3 Not-Takin g Metoprolol Succinate 100 MG 1 capsule Orally twice a day Active Extra Depth Orthopedic Shoes (1 Pair) with Customized Heat Molded Multidensity Innersoles (3 Pair) as directed Dx: NIDDM/Polyneuropathy (E11.42), Hammertoe Foot Deformity (M20.41,M20.42), Preulcerative Skin Lesion(s) (L85.1 08/31/2022 Not-Taking Torsemide 20 MG 2 tablets Orally Twice daily Active Flecainide Acetate 100 MG TAKE 1 TABLET BY MOUTH TWICE A DAY Oral for 90 Not-Taking Multivitamin Active Clotrimazole-Betametha sone 1-0.05 % APPLY TO AFFECTED AREA TWICE A DAY IN THE MORNING AND IN THE EVENING FOR 2 WEEKS External for 7 PRN Not-Taking Pantoprazole Sodium Active Acyclovir 800 MG 1 tablet Orally Twice a day for 10 day(s) Not-Taking Triamterene-HCTZ Act stephan protonix 1 tab Oral for 14 days Not-Taking Senna Not-Taking Sodium Chloride 1 GM as directed Orally Not-Taking [facility] Chewable C with Layne Hips 500 MG TAKE 1 TABLET BY MOUTH TWICE A DAY Oral for 30 Not-Taking Mycophenolate Mofetil 250 MG 2 capsules Orally Twice a day for 30 day(s) Active Sulfamethoxazole-Trime thoprim 800-160 MG TAKE 1 TABLET BY MOUTH EVERY 12 HOURS FOR 5 DAYS Oral for 5 Not-Taking Spironolactone 100 MG TAKE 1 TABLET BY MOUTH EVERY DAY Oral for 90 Not-Taking Xanax 0.5 MG 1 tablet Orally Twice a day Active LORazepam 0.5 MG 1 tablet at bedtime as needed Orally Once a day PRN Not-Taking Bactrim Not-Taking Digoxin 125 MCG 1 tablet Orally Not-Taking Flovent Diskus 250 MCG/ACT INHALE 1 PUFF TWICE A DAY BY FOR 90 DAYS. Inhalation for 90 Not-Taking Prednisone Not-Takin g Ferrous Sulfate 325 (65 Fe) MG TAKE 1 TABLET BY MOUTH TWICE A DAY Oral for 90 Not-Taking Eliquis 5 MG TAKE 1 TABLET BY MOUTH TWICE A DAY Oral for 90 Active Ondansetron HCl 4 MG TAKE 1 TABLET BY MOUTH EVERY 6 HOURS NEEDED FOR NAUSEA OR VOMITING Oral for 30 PRN Active Magnesium Oxide 400 (240 Mg) MG TAKE 2 TABLETS BY MOUTH 3 TIMES A DAY Oral for 90 Active HumaLOG KwikPen 100 UNIT/ML INJECT UP TO 30 UNITS DIRECTED THREE TIMES DAILY AFTER MEALS Subcutaneous for 90 Active Synthroid 137 MCG TAKE 1 TABLET BY MOUTH EVERY DAY Oral for 90 Active Lovastatin 40 MG TAKE 1 TABLET BY MOUTH AT BEDTIME EVERY NIGHT Oral for 90 Active D3 Super Strength 50 MCG (2000 UT) TAKE 2 CAPSULES BY MOUTH EVERY DAY Oral for 90 Not-Taking Lactulose 10 GM/15ML TAKE 15 ML BY MOUTH TWICE A DAY FOR 30 DAYS. Oral for 30 Not-Taking Xifaxan 550 MG TAKE 1 TABLET BY MOUTH EVERY 12 HOURS Oral for 30 Not-Taking Trulicity 1.5 MG/0.5ML INJECT 1.5 MG (1 PEN) INTO THE SKIN ONCE A WEEK Subcutaneous for 84 Not-Taking metFORMIN HCl 500 MG TAKE 1 TABLET BY MOUTH EVERY DAY Oral for 90 Not-Taking Docusate Sodium 100 MG 1 capsule as need ed Orally Once a day for 30 day(s) Not-Taking Arnuity Ellipta 200 MCG/ACT 1 puff Inhalation Once a day Active Nadolol 20 MG TAKE 1 TABLET BY MOUTH EVERY DAY Oral for 90 Not-Taking Nystatin 843780 U/ML as directed Mouth/Throat Not-Taking Restasis 0.05 % INSTILL 1 DROP INTO BOTH EYES TWICE A DAY Ophthalmic for 90 Active Lantus SoloStar 100 UNIT/ML INJECT 50 UNITS INTO SKIN *PLUS 2 UNITS TO PRIME EACH DOSE* Subcutaneous for 58 Active Immunizations Vaccine Route Administration Date Status Comme nts Influenza Unknown 06/27/2022 Administered Influenza Unknown 07/26/2023 Administered Social History Tobacco Use: Social History Observation [...] Are you an other tobacco user? No Problems Problem Type SNOMED Code ICD Code Onset Dates Problem Status W/U Status Risk Notes Problem Acquired hammer toe of right foot (960403671210 9105) Other hammer toe(s) (acquired), right foot (M20.41) Active confirmed Problem Acquired hammer toe of left foot (708403293719 9103) Other hammer toe(s) (acquired), left foot (M20.42) Active confirmed Problem 334562620 Neuropathy (G62.9) Active confirmed Problem 44680348 Type 2 diabetes mellitus with polyneuropathy (E11.42) Active confirmed Vital Signs Blood pressure diastolic 72 mm Hg 08/20/2024 Height 5ft7in in 08/20/2024 Blood pressure systolic 110 mm Hg 08/20/2024 Weight 229 lbs 08/20/2024 BMI 35.86 kg/m2 08/20/2024 Encounters Encounter Location Date Provider Diagnosis [facility] [place] [address] [place] [address] 11/01/2023 Munira Perica Xerosis of skin L85. 3 ; Tinea unguium B35.1 ; Type 2 diabetes mellitus with polyneuropathy E11.42 and Neuropathy G62.[address] [address] 01/02/2024 Munira Perica Tinea unguium B35.1 and Type 2 diabetes mellitus with polyneuropathy E11.[address] [address] 03/19/2024 Munira Perica Tinea unguium B35.1 and Type 2 diabetes mellitus with polyneuropathy E11.[address] [address] 06/07/2024 Munira Perica Tinea unguium B35.1 and Type 2 diabetes mellitus with polyneuropathy E11.[address] [address] 08/20/2024 Munira Perica Tinea unguium B35.1 and Type 2 diabetes mellitus with polyneuropathy E11.42 Assessments Encounter Date Diagnosis (ICD Code) Assessment Notes Treatment Notes Treatment Clinical Notes Section Notes 11/01/2023 Xerosis of skin (ICD-10 - L85.3) 03/19/2024 Tinea unguium (ICD-10 - B35.1) 06/07/2024 Tinea unguium (ICD-10 - B35.1) 08/20/2024 Tinea unguium (ICD-10 - B35.1) 08/20/2024 Type 2 diabetes mellitus with polyneuropathy (ICD-10 - E11.42) 06/07/2024 Type 2 diabetes mellitus with polyneuropathy (ICD-10 - E11.42) 03/19/2024 Type 2 diabetes mellitus with polyneuropathy (ICD-10 - E11.42) 01/02/2024 Tinea unguium (ICD-10 - B35.1) 11/01/2023 Tinea unguium (ICD-10 - B35.1) 11/01/2023 Neuropathy (ICD-10 - G62.9) 01/02/2024 Type 2 diabetes mellitus with polyneuropathy (ICD-10 - E11.42) 11/01/2023 Type 2 diabetes mellitus with polyneuropathy (ICD-10 - E11.42) Plan Of Treatment Next Appt Details Provider Name:Munira moraes, 10/30/2024 02:45:00 PM, [address] [facility], [place], [address], Insurance Providers Payer Name Payer Address Payer Phone Subscriber Number Group Number Insured Name Patient Relationship to Insured Coverage Start Date Coverage End Date Medicare National [employer] [address] [place] [address] [id number] Elysia Valle Self - patient is the insured [employer] [address] [place] [address] [id number] Elysia Valle Self - patient is the insured Medical (General) History Medical History History ICD Code Anemia asthma Back,Hip,and Knee pain Diabetic Heart disease High blood pressure Liver disease thyroid Measles Mumps Chicken pox Transfusions Surgical History Surgery Date(Month/Year) liver transplant 07/31/2022 hysterectomy 02/1999 Surgery for infected incision area biopsy on Liver 07/18 Tooth removal 08/05/24 Hospitalization History Reason Date(Month/Year) [facility] - Vomiting 04/2023 [facility] Incision became infected - 3 night stay 09/2022
--- OUTSIDE RECORDS SUMMARY | 2024-10-02 13:21 | XMS_ITS ---
Author Organization [facility] Address [address] [place] [address] Care Team Providers Care Miller [employer] Distillery Name Role Phone Tony Toure MD Primary Care Provider Munira Heller Unavailable [phone] Allergies Allergen (clinical drug ingredient) Drug/Non Drug Allergy documented on EMR Reaction Allergy Type Onset Date Status rosuvastatin Rosuvastatin Calcium swelling Drug Allergy Active Tramadol & Dietary Manage Prod swelling Drug Allergy Active REASON FOR VISIT At Risk Footcare Medications Medication SIG (Take, Route, Frequency, Duration) Notes Start Date End Date Status Eliquis 5 MG TAKE 1 TABLET BY [...] DAILY AFTER MEALS Subcutaneous for 90 Active Ferrous Sulfate 325 (65 Fe) MG TAKE 1 TABLET BY MOUTH TWICE A DAY Oral for 90 Not-Taking Synthroid 137 MCG TAKE 1 TABLET BY MOUTH EVERY DAY Oral for 90 Active Lovastatin 40 MG TAKE 1 TABLET BY MOUTH AT BEDTIME EVERY NIGHT Oral for 90 Active Restasis 0.05 % INSTILL 1 DROP INTO BOTH EYES TWICE A DAY Ophthalmic for 90 Active Lantus SoloStar 100 UNIT/ML INJECT 50 UNITS INTO SKIN *PLUS 2 UNITS TO PRIME EACH DOSE* Subcutaneous for 58 Active Mycophenolate Mofetil 250 MG 2 capsules Orally Twice a day for 30 day(s) Active Ergocalciferol 61577 IU as directed Orally Active Metoprolol Succinate 100 MG 1 capsule Orally twice a day Active Torsemide 20 MG 2 tablets Orally Twice daily Active Tacrolimus 0.2 MG as directed Orally Active Pain Extra Strength 500 MG 1 tablet as needed Orally every 6 hrs Active Multivitamin Active Pantoprazole Sodium Active Triamterene-HCTZ Act stephan Xanax 0.5 MG 1 tablet Orally Twice a day Active Arnuity Ellipta 200 MCG/ACT 1 puff Inhalation Once a day Active Senna Not-Taking Sodium Chloride 1 GM as directed Orally Not-Taking [facility] Chewable C with Layne Hips 500 MG TAKE 1 TABLET BY MOUTH TWICE A DAY Oral for 30 Not-Taking Sulfamethoxazole-Trime thoprim 800-160 MG TAKE 1 TABLET BY MOUTH EVERY 12 HOURS FOR 5 DAYS Oral for 5 Not-Taking Furosemide 40 MG TAKE 1 TABLET BY MOUTH EVERY DAY Orally Not-Taking D3 Super Strength 50 MCG (2000 UT) TAKE 2 CAPSULES BY MOUTH EVERY DAY Oral for 90 Not-Taking Lactulose 10 GM/15ML TAKE 15 ML BY MOUTH TWICE A DAY FOR 30 DAYS. Oral for 30 Not-Taking Xifaxan 550 MG TAKE 1 TABLET BY MOUTH EVERY 12 HOURS Oral for 30 Not-Taking Omeprazole 40 MG TAKE 1 CAPSULE BY MOUTH TWICE A DAY Oral for 90 Not-Taking Spironolactone 100 [...] Once a day for 30 day(s) Not-Taking Nadolol 20 MG TAKE 1 TABLET BY MOUTH EVERY DAY Oral for 90 Not-Taking Nystatin 843096 U/ML as directed Mouth/Throat Not-Taking Vitamin D3 Not-Tommy ornelas Extra Depth Orthopedic Shoes (1 Pair) with Customized Heat Molded Multidensity Innersoles (3 Pair) as directed Dx: NIDDM/Polyneuropathy (E11.42), Hammertoe Foot Deformity (M20.41,M20.42), Preulcerative Skin Lesion(s) (L85.1 08/31/2022 Not-Taking Flecainide Acetate 100 MG TAKE 1 TABLET BY MOUTH TWICE A DAY Oral for 90 Not-Taking Prednisone Not-Takin g Fluticasone Propionate (Inhal) 250 MCG/BLIST 1 puff Inhalation Twice a day Not-Taking Clotrimazole-Betametha sone 1-0.05 % APPLY TO AFFECTED AREA TWICE A DAY IN THE MORNING AND IN THE EVENING FOR 2 WEEKS External for 7 PRN Not-Taking Acyclovir 800 MG 1 tablet Orally Twice a day for 10 day(s) Not-Taking protonix 1 tab Oral for 14 days Not-Taking LORazepam 0.5 MG 1 tablet at bedtime as needed Orally Once a day PRN Not-Taking Bactrim Not-Taking Digoxin 125 MCG 1 tablet Orally Not-Taking Flovent Diskus 250 MCG/ACT INHALE 1 PUFF TWICE A DAY BY FOR 90 DAYS. Inhalation for 90 Not-Taking Social History Tobacco Use: Social History Observation Description Date Details (start date - stop date) Former Smoker NA - NA Tobacco Use/Smoking Question Answer Notes Are you a: former smoker Additional Findings: Tobacco Non-User Current no n-smoker Tobacco use other than smoking: Question Answer Notes Are you an other tobacco user? No Vital Signs Height 5ft7in in 06/07/2024 Weight 214 lbs 06/07/2024 BMI 33.51 kg/m2 06/07/2024 Blood pressure systolic 112 mm Hg 06/07/20 24 Blood pressure diastolic 76 mm Hg 024 Encounters Encounter Location Date Provider Diagnosis [facility] [address] [address] 06/07/2024 Munira Crews Tinea unguium B35.1 and Type 2 diabetes mellitus with polyneuropathy E11.42 Assessments Encounter Date Diagnosis (ICD Code) Assessment Notes Treatment Notes Treatment Clinical Notes Section Notes 06/07/2024 Tinea unguium (ICD-10 - B35.1) 06/07/2024 Type 2 diabetes mellitus with polyneuropathy (ICD-10 - E11.42) Plan Of Treatment Next Appt Details Follow Up: 2 Months, Reason: Provider Name:Munira moraes, 10/30/2024 02:45:00 PM, [address] [place] [address], [address], Procedure Notes * Category Sub-Category Detail Notes [...] as necessary. Patient chooses, no pharmaceutical tx (58336) Keratoma Treatment Parring or Cutting o f Benign Hyperkeratotic Lesion(s) (-57) More than 4 Lesions - The Benign hyperkeratotic lesions, as described above were pared, and/or cut utilizing a sterile 15 blade, tissue nippers, and/or dremel - 29080 Progress Notes * Elysia VALLEDOB:1960 (64 yo F)Acc No.[id number]:06/07/2024 Progress Note Patient:?Elysia Valle Provider:?Munira Crews DPM :1960???Age:64 Y???Sex:Female D ate:06/07/2024 Address:[address] [place], [place] [id number] Pcp:Tony Toure MD Subjective: * Chief Complaints: * ???At Risk Footcare * HPI: ???At Risk footcare:?Pt States Last PCP Visit:?Date?03/11/2024 * ROS:?General/Constitutional:?Nausea?denies, denies, denies.?Vomiting?denies, denies, denies.?Hunger Thirst?denies, denies, denies.?Loss appetite?denies, denies, denies.?Chills?denies, denies, denies.?Fatigue?denies, denies, denies.?Fever?denies, denies, denies.?Night Sweats?denies, denies, denies.?Unexplained weight loss?denies, denies, denies.?Unexplained weight gain?denies, denies, denies.?HEENTM:?Dentures?denies, denies, denies.?Dizziness?denies, denies, denies.?Glasses/contacts?admits, admits, admits.?Retinopathy?denies, denies, denies.?Blurred/double vision?denies, denies, denies.?TMJ?denies, denies, denies.?Discharge/drainage?denies, denies, denies.?Implants?denies, denies, denies.?Sore throat?denies, denies, denies.?Dental implants?denies, denies, denies.?Hard of hearing ?denies, denies, denies.?Difficulty chewing/swallowing/speaking denies, denies, denies.?Nose bleeds?denies, denies, denies.?Sore mouth?denies, denies, denies.?Respiratory:?On Oxygen?denies, denies, denies.?Pneumonia/pleurisy?denies, denies, denies.?Bronchitis?denies, denies, denies.?Emphysema?denies, denies, denies.?Coughing?denies, denies, denies.?Cough blood?denies, denies, denies.?Shortness of breath?denies, denies, denies.?Wheezing?denies, denies, denies.?Cardiovascular:?Pacemaker?denies, denies, denies.?MVP?denies, denies, denies.?WPW?denies, denies, denies.?CHF?denies, denies, denies.?Heart attack?denies, denies, denies.?Septal defect?denies, denies, denies.?Rapid beat denies, denies, denies.?Chest pain ?denies, denies, denies.?Atrial Fib.?denies, denies, denies.?Murmur/Palpitations?denies, denies, denies.?Gastrointestinal:?Hemorrhoids?denies, denies, denies.?Stomach/Abdominal pain?denies, denies, denies.?Dark blood stool?denies, denies, denies.?Irritable bowel ?denies, denies, denies.?Constipation?denies, denies, denies.?Diarrhea?denies, denies, denies.?Hematology:?Swelling?denies, denies, denies.?Clots?denies, denies, denies.?Varicose Veins?denies, denies, denies.?Bruising?denies, denies, denies.?Bleeding problem?denies, denies, denies.?Genitourinary:?Blood urine?denies, denies, denies.?Frequent/Painfu/urination/bladder control?denies, denies, denies.?Kidney stones?denies, denies, denies.?Infection (UTI)?denies, denies, denies.?Nephropathy?denies, denies, denies. sex trans dis (STD)?denies, denies, denies.?Prostate?denies, denies, denies.?Musculoskeletal:?Hammertoes?denies, denies, denies.?Bunions?denies, denies, denies.?Back Pain?denies, denies, denies.?Muscle Cramps/ Resting?denies, denies, denies.?Muscle cramps / walking?denies, denies, denies.?Generalized aches and pains?denies, admits, denies.?Weakness?denies, denies, denies.?Integ.:?Schaffer?denies, denies, denies.?Scars?denies, denies, denies.?Corns/calluses?denies, denies, denies.?Ingrown nails?denies, denies, denies.?Painful nails?denies, denies, denies.?Open Sores?denies, denies, denies.?Rashes?denies, denies, denies.?Neurologic:?Difficulty sleeping?denies, denies, denies.?Brain disorder?denies, denies, denies.?Numbness?admits, admits, admits.?Balance trouble?denies, denies, denies.?Confusion?denies, denies, denies.?Fainting/blackouts?denies, denies, denies.?Tingling?denies, denies, denies.?Tremors?denies, denies, denies.? * Medical History:? * Surgical History:?liver dee splant 07/31/2022hysterectomy 02/1999Surgery for infected incision area 09/2022 * Hospitalization/Major Diagno stic Procedure:?[facility] became [facility] - 3 night stay 09/20[facility] - [facility]omiting 04/2023 * Family History:?Father: dece ased, diagnosed with Diabetic - NIDDM, Other malignant neoplasm of unspecified site.?Daughter(s): .?Mother: diagnosed with Diabetic - NIDDM.?Siblings: diagnosed with Diabetic - NIDDM, Unspecified essential hypertension, Other malignant neoplasm of unspecified site.? * Social History:?Tobacco Use:?Tobacco Use/Smoking?Are you a:?former smoker ?Additional Findings: Tobacco Non-User?Current non-smoker ?Tobacco use other than smoking?Are you an other tobacco user??No ???Miscellaneous:?no Caffeine, 1 cup of tea occassionally. [...] capsule Orally , Notes: twice a dayErgocalciferol 49824 IU Tablet as directed Orally Pain Extra [...] Orally , Notes: twice a dayTaking Ergocalciferol 63727 IU Tablet as directed Orally Taking Pain [...] 1 puff Inhalation Twice a dayPrednisone Nystatin 125856 U/ML Suspension Reconstituted as directed Mouth/Throat Nadolol [...] Twice a dayNot- Taking/PRN Prednisone Not-Taking/PRN Nystatin 024425 U/ML Suspension Reconstituted as directed Mouth/Throat Not-Taking/PRN [...] Vitals:?Ht: 5ft7in, Wt:214, BMI:33.51, Shoe size: 9.5, BP:112/76 mm Hg, BS: 152, Ht-cm: 170.18 cm, Wt-k.07 kg. * Examination: [...] as necessary. Patient chooses, no pharmaceutical tx (46851).?Keratoma Treatment:?Parring or Cutting of Benign Hyperkeratotic Lesion(s)?(-57) More than 4 Lesions - The Benign hyperkeratotic lesions, as described above were pared, and/or cut utilizing a sterile 15 blade, tissue nippers, and/or dremel - 09276 ?.? * Procedure Codes:?19617 DEBRI DE NAIL, 6 OR MORE, Modifiers: XS 94302 TRIM SKIN LESIONS, OVER 4, Modifiers: XS * Follow Up:?2 Months * Images: * Sign off status: Completed true * Provider:?Munira Crews, JOSE Date:? Generated for Irma romo/Virgie/eTransmitting on:?10/02/2024 01:20 [...] DIABETES EYE EXAM Diabeti c Retinopathy Screening:: Yes Findings of Diabetic Eye Exam:: retinopa thy Nails NAILS are: Elongated, overg rown, dystrophic, lytic, greater than 3mm thick, discolored and friable with crumbly malodorous subungual debris , with dull to no pain on palpation due to neuropathy , 1-5 B/L
[2024-10-02 16:17] LABS: Appearance Urine Turbid; Color Urine Yellow; Glucose Urine UA Negative (Negative); Leukocyte Esterase Urine Large (3+) (Negative); Nitrite Urine Positive (Negative); Specific Gravity - Urine 1.015 (1.005-1.025); UMIC TRIGGER UACC YES; Urine Blood Small (1+) (Negative); Urine Ketones Negative (Negative); Urine Protein Negative (Neg-Trace)
[2024-10-02 16:35] LABS: Bacteria Urine 4+ (None Seen); Hyaline Casts Urine 0-2 /LPF (0-2); RBC Urine 0-2 /HPF (0-2); UACC Culture Trigger YES; WBC Urine >50 /HPF (0-5)
== END 2024-10-02 13:19 | disposition home or self-care (01) ==
LOC: HO.HMGCLDS 13:18
PROVIDERS: PCP Internal Medicine; Visit Provider Physician Assistant
DX: N39.0 Urinary tract infection, site not specified (principal); B96.1 Klebsiella pneumoniae [K. pneumoniae] as the cause of diseases classified elsewhere
CPT/HCPCS: 81001; 87086; 87088; 87186

== ENCOUNTER → 2024-10-07 13:00 | Outpatient (REF) | payer MEDICARE, SELFPAY ==
--- OUTSIDE RECORDS SUMMARY | 2024-10-07 15:23 | XMS_ITS ---
Author Organization [facility] Address [address] [place] [address] Care Team Providers Care Hand Tennis Ball Coverer Name Role Phone Tony Toure MD Primary Care Provider Munira Heller Unavailable [phone] Allergies Allergen (clinical drug ingredient) Drug/Non Drug [...] EVERY DAY Oral for 90 Not-Taking Nystatin 381493 U/ML as directed Mouth/Throat Not-Taking Nadolol 20 [...] 0.2 MG as directed Orally Active Ergocalciferol 24297 IU as directed Orally Active Triamterene-HCTZ Act [...] 024 Encounters Encounter Location Date Provider Diagnosis [facility] [address] [address] 03/19/2024 Munira Crews Tinea unguium B35.1 and Type 2 diabetes mellitus with polyneuropathy E11.42 Assessments Encounter Date Diagnosis (ICD Code) Assessment Notes Treatment Notes Treatment Clinical Notes Section Notes 03/19/2024 Tinea unguium (ICD-10 - B35.1) 03/19/2024 Type 2 diabetes mellitus with polyneuropathy (ICD-10 - E11.42) Plan Of Treatment Next Appt Details Follow Up: 2 Months, Reason: Provider Name:Munira moraes, 10/30/2024 02:45:00 PM, [address] [place] [address], [phone], Procedure Notes * Category Sub-Category Detail Notes [...] as necessary. Patient chooses, no pharmaceutical tx (83089) Keratoma Treatment Parring or Cutting o f Benign Hyperkeratotic Lesion(s) 86961 (2-4 Lesions) - The Benign hyperkeratotic lesions, as described above were pared, and/or cut utilizing a sterile #15 blade, tissue nippers, and/or dremel Progress Notes * Elysia VALLEDOB:1960 (64 yo F)Acc No.[id number]:03/19/2024 Progress Note Patient:?Elysia Valle Provider:?Munira Crews DPM :1960???Age:64 Y???Sex:Female D ate:03/19/2024 Address:[address] [place], [place] [id number] Pcp:Tony Toure MD Subjective: * Chief Complaints: [...] capsule Orally , Notes: twice a dayErgocalciferol 94870 IU Tablet as directed Orally Pain Extra [...] Orally , Notes: twice a dayTaking Ergocalciferol 43772 IU Tablet as directed Orally Taking Pain [...] 1 puff Inhalation Twice a dayPrednisone Nystatin 435119 U/ML Suspension Reconstituted as directed Mouth/Throat Nadolol [...] Twice a dayNot- Taking/PRN Prednisone Not-Taking/PRN Nystatin 186898 U/ML Suspension Reconstituted as directed Mouth/Throat Not-Taking/PRN [...] as necessary. Patient chooses, no pharmaceutical tx (15574).?Keratoma Treatment:?Parring or Cutting of Benign Hyperkeratotic Lesion(s)?32149 (2-4 Lesions) - The Benign hyperkeratotic lesions, as described above were pared, and/or cut utilizing a sterile #15 blade, tissue nippers, and/or dremel.? * Procedure Codes:?58986 DEBRI DE NAIL, 6 OR MORE, Modifiers: XS 37267 TRIM SKIN LESIONS, OVER 4, Modifiers: XS * Follow Up:?2 Months * Images: * Sign off status: Completed true * Provider:?Munira Crews DPM Date:? Generated for Irma romo/Virgie/eTransmitting on:?10/07/2024 03:23 PM EST History and Physical Notes * [...]
--- OUTSIDE RECORDS SUMMARY | 2024-10-07 15:23 | XMS_ITS ---
Author Organization [facility] yes[facility] Address [address] [place] [address] Care Team Providers Care Sales Promotion Representative Name Role Phone Tony Toure MD Primary Care Provider Munira Heller Unavailable [phone] Allergies Allergen (clinical drug ingredient) Drug/Non Drug Allergy documented on EMR Reaction Allergy Type Onset Date Status rosuvastatin Rosuvastatin Calcium swelling Drug Allergy Active Tramadol & Dietary Manage Prod swelling Drug Allergy Active REASON FOR VISIT At Risk Footcare Medications Medication SIG (Take, Route, Frequency, Duration) Notes Start Date End Date Status Furosemide 40 MG TAKE 1 TABLET BY MOUTH EVERY DAY Orally Not-Taking Omeprazole 40 MG TAKE 1 CAPSULE BY MOUTH TWICE A DAY Oral for 90 Not-Taking Sodium Chloride 1 GM as directed Orally Not-Taking [facility] Chewable C with Layne Hips 500 MG TAKE 1 TABLET BY MOUTH TWICE A DAY Oral for 30 Not-Taking Sulfamethoxazole-Trime thoprim 800-160 MG TAKE 1 TABLET BY MOUTH EVERY 12 HOURS FOR 5 DAYS Oral for 5 Not-Taking Spironolactone 100 MG TAKE 1 TABLET BY MOUTH EVERY DAY Oral for 90 Not-Taking D3 Super Strength 50 MCG (2000 [...] ONCE A WEEK Subcutaneous for 84 Not-Taking Prednisone Not-Takin g metFORMIN HCl 500 MG TAKE 1 TABLET BY MOUTH EVERY DAY Oral for 90 Not-Taking Docusate Sodium 100 MG 1 capsule as need ed Orally Once a day for 30 day(s) Not-Taking Nadolol 20 MG TAKE 1 TABLET BY MOUTH EVERY DAY Oral for 90 Not-Taking Nystatin 570615 U/ML as directed Mouth/Throat Not-Taking Fluticasone Propionate (Inhal) 250 MCG/BLIST 1 puff Inhalation Twice a day Not-Taking Vitamin D3 Not-Tommy ornelas Extra Depth Orthopedic Shoes (1 Pair) with Customized Heat Molded Multidensity Innersoles (3 Pair) as directed Dx: NIDDM/Polyneuropathy (E11.42), Hammertoe Foot Deformity (M20.41,M20.42), Preulcerative Skin Lesion(s) (L85.1 08/31/2022 Not-Taking Flecainide Acetate 100 MG TAKE 1 TABLET BY MOUTH TWICE A DAY Oral for 90 Not-Taking Clotrimazole-Betametha sone 1-0.05 % APPLY TO [...] FOR 90 DAYS. Inhalation for 90 Not-Taking Ferrous Sulfate 325 (65 Fe) MG [...] PRIME EACH DOSE* Subcutaneous for 58 Active Tacrolimus 0.2 MG as directed Orally Active Pain Extra Strength 500 MG 1 tablet as needed Orally every 6 hrs Active Ergocalciferol 45857 IU as directed Orally Active Metoprolol Succinate 100 MG 1 capsule Orally twice a day Active Mycophenolate Mofetil 250 MG 2 capsules Orally Twice a day for 30 day(s) Active Torsemide 20 MG 2 tablets Orally Twice daily Active Multivitamin Active Pantoprazole Sodium Active Triamterene-HCTZ Act stephan Xanax 0.5 MG 1 tablet Orally Twice a day Active Senna Not-Taking Arnuity Ellipta 200 MCG/ACT 1 puff [...] user? No Vital Signs Height 5ft7in in 08/20/2024 Weight 229 lbs 08/20/2024 BMI 35.86 kg/m2 08/20/2024 Blood pressure systolic 110 mm Hg 08/20/20 24 Blood pressure diastolic 72 mm Hg 024 Encounters Encounter Location Date Provider Diagnosis [facility] [address] [address] 08/20/2024 Munira Crews Tinea unguium B35.1 and Type 2 diabetes mellitus with polyneuropathy E11.42 Assessments Encounter Date Diagnosis (ICD Code) Assessment Notes Treatment Notes Treatment Clinical Notes Section Notes 08/20/2024 Tinea unguium (ICD-10 - B35.1) 08/20/2024 Type 2 diabetes mellitus with polyneuropathy (ICD-10 - E11.42) Plan Of Treatment Next Appt Details Follow Up: 2 Months, Reason: Provider Name:Munira moraes, 10/30/2024 02:45:00 PM, [address] [place] [address], [id number], Procedure Notes * Category Sub-Category Detail Notes Debride Nail 6-10 Nail debridement Performance o f this nail treatment by a nonprofessional would put this patients foot and overall health at risk. Therefore, debridement to affected nail(s), as described in exam, was performed extensively to reduce/remove overall nail length, girth, thickness, subungual debris, and necrotic tissue, by manual and/or electrical means through the use of a nail nipper and/or dremel-type paint grinder stone mill, to a more viable healthy nail plate or bed tissue 6-10 nails in total. Silver nitrate was used for any petechial bleeding as necessary. Definitive antifungal treatment options, both pharmaceutical and surgical, have been reviewed and discussed with the patient. The patient solely prefers the use of intermittent/as needed professional debridement services for their nail condition and understands the need for additional periodic treatments to maintain effectiveness in symptomatic relief - 05097 Keratoma Treatment Parring or Cutting o f Benign Hyperkeratotic Lesion(s) (-57) More than 4 Lesions - The Benign hyperkeratotic lesions, ( 5) in total, locations as stated and described in exam, were pared, and/or cut utilizing a sterile 15 blade, tissue nippers, and/or power dremel instrumentation - 21881 Progress Notes * Isaias VALELreynaDOB:1960 (64 yo F)Acc No.[id number]:08/20/2024 Progress Note Patient:?Elysia VALLE Provider:?Munira Crews DPM :1960???Age:64 Y???Sex:Female D ate:08/20/2024 Address:[address] [place], [place] [id number] Pcp:Tony Toure MD Subjective: * Chief Complaints: * ???At Risk Footcare * HPI: ???At Risk footcare:?Pt States Last PCP Visit:?Date?04/25/2024 * ROS:?General/Constitutional:?Nausea?denies.?Vomiting?denies.?Hunger Thirst?denies.?Loss appetite?denies.?Chills?denies.?Fatigue?denies.?Fever?denies.?Night Sweats?denies.?Unexplained weight loss?denies.?Unexplained weight gain?denies.?HEENTM:?Dentures?denies.?Dizziness?denies.?Glasses/contacts?admits.?Retinopathy?den ies.?Blurred/double vision?denies.?TMJ?denies.?Discharge/drainage?denies.?Implants?denies.?Sore throat?denies.?Dental implants?denies.?Hard of hearing ?denies.?Difficulty chewing/swallowing/speaking?denies.?Nose bleeds?denies.?Sore mouth?denies.?Respiratory:?On O xygen?denies.?Pneumonia/pleurisy?denies.?Bronchitis?denies.?Emphysema?denies.?Co ughing?denies.?Cough blood?denies.?Shortness of breath?denies.?Wheezing?denies.?Cardiovascular:?Pacemaker?denies.?MVP?denies.?WPW?denies.?CHF?denies.?Heart attack?denies.?Septal defect?denies.?Rapid beat?denies.?Chest pain ?denies.?Atrial Fib.?denies.?Murmur/Palpitations?denies.?Gastrointestinal:?Hemorrhoids?denies.?Stomach/Abdominal pain?denies.?Dark blood stool?denies.?Irritable bowel ?denies.?Constipation?denies.?Diarrhea?denies.?Hematology:?Swelling?denies.?Clots?denies.?Varicose Veins?denies.?Bruising?denies.?Bleeding problem?denies.?Genitourinary:?Blood urine?denies.?Frequent/Painfu/urination/bladder control?denies.?Kidney stones?denies.?Infection (UTI)?denies.?Nephropathy?denies.?sex trans dis (STD)?denies.?Prostate?denies.?Musculoskeletal:?Hammertoes?denies.?Bunions?denies.?Back Pain?denies.?Muscle Cramps/ Resting?denies.?Muscle cramps / walking?denies.?Generalized aches and pains?denies.?Weakness?denies.?Integ.:?Schaffer?denies.?Scars?denies.?Corns/calluses?denies.?Ingrown nails?denies.?Painful nails?denies.?Open Sores?denies.?Rashes?denies.?Neurologic:?Difficulty sleeping?denies.?Brain disorder?denies.?Numbness?admits.?Balance t rouble?denies.?Confusion?denies.?Fainting/blackouts?denies.?Tingling?denies.?Colin mors?denies.? * Medical History:? * Surgical History:?liver dee splant 07/31/2022hysterectomy 02/1999Surgery for infected incision area iopsy on Liver 07/18Tooth removal 08/05/24 * Hospitalization/Major Diagno stic Procedure:?[facility] became infected - 3 night stay 09/2022[facility] - Vomiting 04/2023 * Family History:?Father: dece ased, diagnosed with Other malignant neoplasm of unspecified site, Diabetic - NIDDM.?Daughter(s): .?Mother: diagnosed with Diabetic - NIDDM.?Siblings: diagnosed with Other malignant neoplasm of unspecified site, Diabetic - NIDDM, Unspecified essential hypertension.? * Social History:?Tobacco Use:?Tobacco Use/Smoking?Are you a:?former smoker ?Additional Findings: Tobacco Non-User?Current non-smoker ?Tobacco use other than smoking?Are you an other tobacco user??No * Medications:?TakingArnuity E llipta 200 MCG/ACT Aerosol Powder Breath Activated 1 puff Inhalation Once a day Xanax 0.5 MG Tablet 1 tablet Orally Twice a day Triamterene-HCTZ Pantoprazole Sodium Multivitamin Torsemide 20 MG Tablet 2 tablets Orally Twice daily Metoprolol Succinate 100 MG Capsule ER 24 Hour Sprinkle 1 capsule Orally , Notes to Pharmacist: twice a dayErgocalciferol 32922 IU Tablet as directed Orally Pain Extra Strength 500 MG Tablet 1 tablet as needed Orally every 6 hrs Tacrolimus 0.2 MG Packet as directed Orally Mycophenolate Mofetil 250 MG Capsule 2 capsules Orally Twice a day Lantus SoloStar 100 UNIT/ML Solution Pen-injector INJECT [...] NEEDED FOR NAUSEA OR VOMITING Oral , Notes to Pharmacist: PRNEliquis 5 MG Tablet TAKE 1 TABLET BY MOUTH TWICE A DAY Oral Taking Arnuity Ellipta 200 MCG/ACT Aerosol Powder Breath Activated 1 puff Inhalation Once a day Taking Xanax 0.5 MG Tablet 1 tablet Orally Twice a day Taking Triamterene-HCTZ Taking Pantoprazole Sodium Taking Multivitamin Taking Torsemide 20 MG Tablet 2 tablets Orally Twice daily Taking Metoprolol Succinate 100 MG Capsule ER 24 Hour Sprinkle 1 capsule Orally , Notes to Pharmacist: twice a dayTaking Ergocalciferol 24305 IU Tablet as directed Orally Taking Pain Extra Strength 500 MG Tablet 1 tablet as needed Orally every 6 hrs Taking Tacrolimus 0.2 MG Packet as directed Orally Taking Mycophenolate Mofetil 250 MG Capsule 2 capsules Orally Twice a day Taking Lantus SoloStar 100 UNIT/ML Solution Pen-injector INJECT [...] NEEDED FOR NAUSEA OR VOMITING Oral , Notes to Pharmacist: PRNTaking Eliquis 5 MG Tablet TAKE 1 [...] bedtime as needed Orally Once a day , Notes to Pharmacist: PRNprotonix 1 tab Oral Acyclovir 800 MG Tablet 1 tablet Orally Twice a day Clotrimazole-Betamethasone 1-0.05 % Cream APPLY TO AFFECTED AREA TWICE A DAY IN THE MORNING AND IN THE EVENING FOR 2 WEEKS External , Notes to Pharmacist: PRNFlecainide Acetate 100 MG Tablet TAKE 1 TABLET BY MOUTH TWICE A DAY Oral Extra Depth Orthopedic Shoes (1 Pair) with Customized Heat Molded Multidensity Innersoles (3 Pair) as directed Dx: NIDDM/Polyneuropathy (E11.42), Hammertoe Foot Deformity (M20.41,M20.42), Preulcerative Skin Lesion(s) (L85.1 Vitamin D3 Fluticasone Propionate (Inhal) 250 MCG/BLIST Aerosol Powder Breath Activated 1 puff Inhalation Twice a day Prednisone Nystatin 114410 U/ML Suspension Reconstituted as directed Mouth/Throat Nadolol 20 MG Tablet TAKE 1 TABLET BY MOUTH EVERY DAY Oral Docusate Sodium 100 MG Capsule 1 capsule as needed Orally Once a day metFORMIN HCl 500 MG Tablet TAKE 1 [...] bedtime as needed Orally Once a day , Notes to Pharmacist: PRNNot-Taking/PRN protonix 1 tab Oral Not-Taking/PRN Acyclovir 800 MG Tablet 1 tablet Orally Twice a day Not-Taking/PRN Clotrimazole-Betamethasone 1- 0.05 % Cream APPLY TO AFFECTED AREA TWICE A DAY IN THE MORNING AND IN THE EVENING FOR 2 WEEKS External , Notes to Pharmacist: PRNNot-Taking/PRN Flecainide Acetate 100 MG Tablet TAKE 1 TABLET BY MOUTH TWICE A DAY Oral Not-Taking/PRN Extra Depth Orthopedic Shoes (1 Pair) with Customized Heat Molded Multidensity Innersoles (3 Pair) as directed Dx: NIDDM/Polyneuropathy (E11.42), Hammertoe Foot Deformity (M20.41,M20.42), Preulcerative Skin Lesion(s) (L85.1 Not-Taking/PRN Vitamin D3 Not-Taking/PRN Fluticasone Propionate (Inhal) 250 MCG/BLIST Aerosol Powder Breath Activated 1 puff Inhalation Twice a day Not-Taking/PRN Prednisone Not-Taking/PRN Nystatin 527289 U/ML Suspension Reconstituted as directed Mouth/Throat Not-Taking/PRN Nadolol 20 MG Tablet TAKE 1 TABLET BY MOUTH EVERY DAY Oral Not-Taking/PRN Docusate Sodium 100 MG Capsule 1 capsule as needed Orally Once a day Not-Taking/PRN metFORMIN HCl 500 MG Tablet TAKE 1 [...] TABLET BY MOUTH EVERY DAY Oral Not-Taking/PRN Omeprazole 40 MG Capsule Delayed Release TAKE [...] Chloride 1 GM Tablet as directed Orally Not- Taking/PRN Senna Medication List reviewed and reconciled with the patient * Allergies:?Tramadol & Dietar y Manage Prod: swellingRosuvastatin Calcium: swellingyes[Allergies Verified] Objective: * Vitals:?Ht: 5ft7in, Wt:229, BMI:35.86, Shoe size: 9.5, BP:110/72mm Hg, BS: 58, Ht-cm: 170.18 cm, Wt-k.87 kg. * Examination: ???CQM Exceptions:: ?Hemoglobin A1c not performed?Ophthalmology Referral: ?DIABETES EYE EXAM?Neurological: ?SENSORY:?Neurological exam demonstrates [...] T1?.? Assessment: * Assessment: 1.?Tinea unguium - B35.1???2 .?Type 2 diabetes mellitus with polyneuropathy - E11.42 (Primary)??? Plan: * Treatment: * Procedures:?Debride Nail 6-10:?Nail debridement?Performance of this nail treatment by a nonprofessional would put this patients foot and overall health at risk. Therefore, debridement to affected nail(s), as described in exam, was performed extensively to reduce/remove overall nail length, girth, thickness, subungual debris, and necrotic tissue, by manual and/or electrical means through the use of a nail nipper and/or dremel-type paint grinder stone mill, to a more viable healthy nail plate or bed tissue 6-10 nails in total. Silver nitrate was used for any petechial bleeding as necessary. Definitive antifungal treatment options, both pharmaceutical and surgical, have been reviewed and discussed with the patient. The patient solely prefers the use of intermittent/as needed professional debridement services for their nail condition and understands the need for additional periodic treatments to maintain effectiveness in symptomatic relief - 43226.?Keratoma Treatment:?Parring or Cutting of Benign Hyperkeratotic Lesion(s)?(-57) More than 4 Lesions - The Benign hyperkeratotic lesions, ( 5) in total, locations as stated and described in exam, were pared, and/or cut utilizing a sterile 15 blade, tissue nippers, and/or power dremel instrumentation - 90240.? * Procedure Codes:?16271 DEBRI DE NAIL, 6 OR MORE, Modifiers: XS 58068 TRIM SKIN LESIONS, OVER 4, Modifiers: XS * Follow Up:?2 Months * Images: * Sign off status: Completed true * Provider:?Munira Crews DPJoseline Date:? Generated for Irma romo/Virgie/Anitra on:?10/07/2024 03:22 PM EST History and Physical Notes * [...] T7, T1 Ophthalmology Referral DIABETES EYE EXAM Procedu re Performed:: Yes ?Date of Exam Performed: 05/26/2024 Findings of Diabetic Eye Exam:: retinopa thy Nails NAILS are: Elongated, overg rown, dystrophic, lytic, greater than 3mm thick, discolored and friable with crumbly malodorous subungual debris , with dull to no pain on palpation due to neuropathy , 1-5 B/L CQM Exceptions: Hemoglobin A1c not performed Reason:: No r porsche specified
--- OUTSIDE RECORDS SUMMARY | 2024-10-07 15:23 | XMS_ITS | Patient Health Record ---
Author Organization [facility] Address [address] [place] [address] Care Team Providers Care Woodyard Crane Operator Name Role Phone Tony Toure MD Primary Care Provider Munira Heller Unavailable [phone] Allergies Allergen (clinical drug ingredient) Drug/Non Drug [...] A DAY Oral for 90 Not-Taking Ergocalciferol 19430 IU as directed Orally Active Vitamin D3 [...] EVERY DAY Oral for 90 Not-Taking Nystatin 205631 U/ML as directed Mouth/Throat Not-Taking Restasis 0.05 [...] Problem Acquired hammer toe of right foot (137765211846 9105) Other hammer toe(s) (acquired), right foot (M20.41) Active confirmed Problem Acquired hammer toe of left foot (289487387848 9103) Other hammer toe(s) (acquired), left foot (M20.42) Active confirmed Problem [id number] Neuropathy (G62.9) Active confirmed Problem 52066529 Type 2 diabetes mellitus with polyneuropathy (E11.42) Active confirmed Vital Signs Blood pressure diastolic 72 mm Hg 08/20/2024 Height 5ft7in in 08/20/2024 Blood pressure systolic 110 mm Hg 08/20/2024 Weight 229 lbs 08/20/2024 BMI 35.86 kg/m2 08/20/2024 Encounters Encounter Location Date Provider Diagnosis [facility] [place] [address] [place] [address] 11/01/2023 Munira Perica Xerosis of skin L85. 3 ; Tinea unguium B35.1 ; Type 2 diabetes mellitus with polyneuropathy E11.42 and Neuropathy G62.[address] [address] 01/02/2024 Munira Perica Tinea unguium B35.1 and Type 2 diabetes mellitus with polyneuropathy E11.[address] [address] 03/19/2024 Munira Perica Tinea unguium B35.1 and Type 2 diabetes mellitus with polyneuropathy E11.[address] [address] 06/07/2024 Munira Perica Tinea unguium B35.1 and Type 2 diabetes mellitus with polyneuropathy E11.[address] [address] 08/20/2024 Munira Perica Tinea unguium B35.1 and [...] Provider Name:Munira moraes, 10/30/2024 02:45:00 PM, [address] [facility], [place], [address], Insurance Providers Payer Name Payer Address Payer Phone Subscriber Number Group Number Insured Name Patient Relationship to Insured Coverage Start Date Coverage End Date Medicare National Govt [employer] [address] [place] [address] [id number] Elysia Valle Self - patient is the insured [employer] [address] [place] [address] [id number] Elysia Valle Self - patient is the [...] Reason Date(Month/Year) [facility] - Vomiting 04/2023 [facility] became infected - 3 night stay 09/2022
--- OUTSIDE RECORDS SUMMARY | 2024-10-07 15:23 | XMS_ITS ---
Author Organization [facility] yes[facility] [place] Address [address] [place] [address] Care Team Providers Care Aerospace Project Engineer Name Role Phone Tony Toure MD Primary Care Provider Munira Heller Unavailable [phone] Allergies Allergen (clinical drug ingredient) Drug/Non Drug [...] a day for 30 day(s) Active Ergocalciferol 54506 IU as directed Orally Active Metoprolol Succinate [...] EVERY DAY Oral for 90 Not-Taking Nystatin 994124 U/ML as directed Mouth/Throat Not-Taking Vitamin D3 [...] 024 Encounters Encounter Location Date Provider Diagnosis [facility] [address] [address] 06/07/2024 Munira Crews Tinea unguium B35.1 and Type 2 diabetes mellitus with polyneuropathy E11.42 Assessments Encounter Date Diagnosis (ICD Code) Assessment Notes Treatment Notes Treatment Clinical Notes Section Notes 06/07/2024 Tinea unguium (ICD-10 - B35.1) 06/07/2024 Type 2 diabetes mellitus with polyneuropathy (ICD-10 - E11.42) Plan Of Treatment Next Appt Details Follow Up: 2 Months, Reason: Provider Name:Munira moraes, 10/30/2024 02:45:00 PM, [address] [place] [address], [address], Procedure Notes * Category Sub-Category Detail Notes [...] as necessary. Patient chooses, no pharmaceutical tx (98244) Keratoma Treatment Parring or Cutting o f Benign Hyperkeratotic Lesion(s) (-57) More than 4 Lesions - The Benign hyperkeratotic lesions, as described above were pared, and/or cut utilizing a sterile 15 blade, tissue nippers, and/or dremel - 74344 Progress Notes * Elysia VALLEDOB:1960 (64 yo F)Acc No.[id number]:06/07/2024 Progress Note Patient:?Elysia Valle Provider:?Munira Crews DPM :1960???Age:64 Y???Sex:Female D ate:06/07/2024 Address:[address] [place], [place] [id number] Pcp:Tony Toure MD Subjective: * Chief Complaints: [...] capsule Orally , Notes: twice a dayErgocalciferol 82984 IU Tablet as directed Orally Pain Extra [...] Orally , Notes: twice a dayTaking Ergocalciferol 25708 IU Tablet as directed Orally Taking Pain [...] 1 puff Inhalation Twice a dayPrednisone Nystatin 427572 U/ML Suspension Reconstituted as directed Mouth/Throat Nadolol [...] Twice a dayNot- Taking/PRN Prednisone Not-Taking/PRN Nystatin 555406 U/ML Suspension Reconstituted as directed Mouth/Throat Not-Taking/PRN [...] as necessary. Patient chooses, no pharmaceutical tx (70860).?Keratoma Treatment:?Parring or Cutting of Benign Hyperkeratotic Lesion(s)?(-57) More than 4 Lesions - The Benign hyperkeratotic lesions, as described above were pared, and/or cut utilizing a sterile 15 blade, tissue nippers, and/or dremel - 79410 ?.? * Procedure Codes:?98032 DEBRI DE NAIL, 6 OR MORE, Modifiers: XS 88458 TRIM SKIN LESIONS, OVER 4, Modifiers: XS * Follow Up:?2 Months * Images: * Sign off status: Completed true * Provider:?Munira Crews, DPJoseline Date:? Generated for Irma romo/Virgie/eTransmitting on:?10/07/2024 03:22 PM EST History and Physical [...]
--- OUTSIDE RECORDS SUMMARY | 2024-10-07 15:24 | XMS_ITS | Data Portability ---
Author Organization [facility] Internal [facility], Home Service Address [address] [facility] [place] [address] Assessment No assessment recorded. Plan of Treatment Reminders Order Date Submit Date Provider Last Modified By Organization Details Last Modified Time Details Appointments FOLLOW UP 15 2024 02:15P TRINO HOPKINS Not available Not available Not available Lab urinalysi s, dipstick 2023 024 [facility] Internal Medicine, [address], [address], [place], [address], 02/06/2024 11:38:42 culture, urine 2023 024 [facility], [facility] [address], [place], [address], 02/07/2024 11:24:53 urinalysi s complete, reflex culture 2023 024 [facility], [facility] [address] , [place], [address], 04/22/2024 11:47:21 Referral None recorded. Procedures None recorded. Surgeries None recorded. Imaging US, abdomen + pelvis 2023 024 [email or web address] [facility] (Imaging), [address] [place] [address], [address], 03/13/2024 09:24:06 Medication Orders Asmanex HFA 200 mcg/actua tion aerosol inhaler 2023 024 [email or web address] [facility]/Pharmacy #[id number], [address] [place], [address], 12/04/2023 13:00:50 ketoconaz ole 2 % topical cream 2023 024 [facility]/Pharmacy #[id number], [address] [place], [address], 12/01/2023 15:00:14 amoxicill in 875 mg tablet 2023 024 [facility]/Pharmacy #[id number], [address] [place], [address], 06/26/2024 14:18:58 Bactrim DS 800 mg-160 mg tablet 2024 025 [id number] [address] [place], [address], 10/04/2024 14:41:08 Patient TargetsNo targets recorded. Patient InstructionsNo instructions recorded. Reason for Referral None Reported. Results Created Date Observation Date Name Description Value Unit Range Abnormal Flag Note LastModifiedBy Organization Detail LastModifiedTime Result Notes None recorded. Problems Name Problem SNOMED Code Status Onset Date Resolution Date Notes Provider Name and Address Organization Details Recorded Time Splenic infarcti on 83749792 Active 2021 Not Available [facility] 2 17:56:09 Portal vein thrombos is 63747303 Active 2021 Not Available [facility] 2 17:56:09 Pressure ulcer Active 2021 Not Available [facility] 2 17:56:09 Edema of lower extremit y 840892769 Active 2021 Not Available [facility] 2 17:56:09 Gastroes ophageal reflux disease 387427812 Active 2021 Not Available [facility] 2 17:56:09 Type 2 diabetes mellitus 02458493 Active 2017 Not Available [facility] 2 17:56:09 Hypothyr oidism 13053682 Active 2017 Not Available [facility] 2 17:56:09 Hypercho lesterol emia 04821346 Active 2017 Not Available [facility] 2 17:56:09 Acid reflux 754648255 Active 2017 Not Available [facility] 2 17:56:09 Essentia l hyperten eric 28673373 Active 2017 Not Available [facility] 2 17:56:09 Pulmonar y hyperten eric 84866870 Active 2017 Not Available [facility] 2 17:56:09 Sarcoido sis 67056158 Active 2017 Dr. Kiera Reed Not Available [facility] 2 17:56:09 Atrial fibrilla tion 79894614 Active 2017 Not Available [facility] 2 17:56:09 Esophage al varices 23693427 Active 2017 Not Available [facility] 2 17:56:09 Adrenal adenoma 952139587 Active 2017 Not Available [facility] 2 17:56:09 Steatosi s of liver 376663874 Active 2017 Not Available [facility] 2 17:56:09 Chronic kidney disease stage 3 523066778 Active 2021 Not Available [facility] 2 17:56:09 Vasculit is of the skin 97052881 Active 2021 Not Available [facility] 2 17:56:09 Transpla nted liver present 634589152 Active 2022 TRINO ZARAGOZA [address] [place], [address], [facility], [place] 3 14:21:59 Intermit tent claudica tion 56290311 Active 2022 TRINO ZARAGOZA [address] [place], [address], [facility], [place] 3 16:01:13 Peripher al venous insuffic iency 02423445 Active 2022 TRINO ZARAGOZA [address] [place], [address], [facility], [place] 3 16:01:43 Skin ulcer 70997482 Active 2022 TRINO ZARAGOZA [address] [place], [address], [facility], [place] 3 16:04:37 Transpla ntation of liver Active 2022 TRINO [address]ARAGOZA [address] [place] [address], [address], [facility], [place] [place] [facility] 3 16:07:06 Insomnia 263731798 Active 2022 TRINO ZARAGOZA [address] [place] [address], [address], [facility], [place] 3 14:53:51 Trigger finger of right hand 90058385377 942027 Active 2022 TRINO ZARAGOZA [address] [place] [address], [address], [facility], [place] 3 16:07:03 Tendinit is of left gluteal tendon 33030321855 9108 Active 2022 TRINO ZARAGOZA [address] [place] [address], [address], [facility], [place] 3 16:10:56 Candidia sis of skin 28155829 Active 2022 TRINO ZARAGOZA [address] [place] [address], [address], [facility], [place] 3 16:21:15 Asthma 314735788 Active 2023 TRINO ZARAGOZA [address] [place] [address], [address], [facility], [place] 4 14:52:04 Lipoma of back 846615371 Active 2023 TRINO ZARAGOZA [address] [place] [address], [address], [facility], [place] 4 15:09:55 Peripher al vascular disease 320694118 Active 2023 TRINO ZARAGOZA [address] [place] [address], [address], [facility] 4 11:21:48 Acute urinary tract infectio n 410506404 Active 2023 TRINO ZARAGOZA [address] [place] [address], [address], [facility], [place] 4 11:22:05 Lesion of liver 263592923 Active 2023 TRINO ZARAGOZA [address] [place] [address], , [facility] 4 11:26:53 Abdomina l pain 33271396 Active 2023 TRINO ZARAGOZA [address] [place] [address], [address], [facility] 4 14:39:40 Palpitat ions 59379606 Active 2024 TRINO ZARAGOZA [address] [place] [address], [address], [facility] 5 14:42:29 Notes:Some problems listed i n Documents: #[id number], #[id number] could not be added to this patient's chart. Please review these documents and add these problems to the patient's chart manually as needed. Problem Notes None recorded. Procedures Surgical History Date Name Laterality Status Provider Name and Address Organization Details Recorded Time 03/04/20 19 I&D completed Marina BASILIA Martino [address] [place] [address], [address], [facility], [place] Internal [facility] 03/04/2019 14:43:51 02/23/20 19 I&D completed BASILIA Sanchez [address] [place] [address], [address], [facility] 02/22/2019 15:12:47 Partial Hysterectomy completed Neva Strong NP, S [address] [place] [address], [address], [facility] 06/22/2018 15:38:16 Imaging Results None recorded. Procedure Notes None recorded. Medical Equipment None Reported. Allergies Allergen ID Allergen Name Allergen Category Reaction Reaction Severity Criticality Documentation Date Start Date Code Code System Note Provider Name and Address Organization Details Recorded Time 481 lisinopri l medicatio n Not available Not available Not available 12/05/2017 80820 [facility] 8 11:41[facility]04 482 Augmentin medicatio n Not available Not available Not available 12/05/2017 51600 2 RxNorm December Salena, PASUP [address] [place], [address], [facility], [place] Internal [facility] 9 16:14:00 486 tramadol medicatio n Not available Not available Not available 12/05/2017 97449 RxNorm Seble Tate [facility] 8 12:05:04 488 Reglan medicatio n Not available Not available Not available 12/05/2017 9230 [facility] 8 12:05:35 Medications Name Sig Start Date Stop Date Status Note LastModified by Organization Details LastModified Time carisoprodo l 350 mg tablet Take 1 tablet every day by oral route at bedtime. 07/17 completed Not Available Not Available Not Available amoxicillin 500 mg capsule TAKE 1 CAPSULE BY MOUTH 3 TIMES A DAY 10/04 completed Not Available Not Available Not Available silver sulfadiazin e 1 % topical cream APPLY A 1/16 [...] Not Available Not Available No t Available azithromyci n 250 mg tablet TAKE 2 TABLETS BY MOUTH TODAY, THEN TAKE 1 TABLET DAILY FOR 4 DAYS 04/25 completed Not Available Not Available Not Available benzonatate 200 mg capsule TAKE 1 CAPSULE 3 TIMES A DAY BY ORAL ROUTE NEEDED FOR 14 DAYS. 04/25 completed Not Available Not Available Not Available metoprolol succinate ER 50 mg tablet,exte nded release 24 hr TAKE 1 TABLET BY MOUTH EVERY DAY 10/28 completed Not Available Not Available Not Available sulfamethox azole 400 mg-trimetho prim 80 mg tablet 08/21 completed Not Available Not Available Not Available Synthroid 200 mcg tablet Take 1 tablet every day by oral route. 01/04 completed Not Available Not Available Not Available cephalexin 250 mg capsule TAKE 2 CAPSULES BY MOUTH 4 TIMES A DAY FOR 7 DAYS. 10/28 completed Not Available Not Available Not Available hydrocodone 5 mg-acetamin ophen 325 mg tablet TAKE 1 TABLET BY MOUTH EVERY 6 HOURS NEEDED FOR PAIN active Not Available Not Available No t Available Synthroid 150 mcg tablet Take 1 tablet every day by oral route. 11/13 completed Not Available Not Available Not Available mycophenola te mofetil 250 mg capsule Take 2 capsules twice a day by oral route. active Not Available Not Available No t Available Claritin 10 mg tablet Take 1 tablet every day by oral route. 05/21 completed Not Available Not Available Not Available fluconazole 200 mg tablet TAKE 1 TABLET BY MOUTH ONCE FOR 1 DOSE. 10/28 completed Not Available Not Available Not Available metoprolol succinate ER 200 mg tablet,exte nded release 24 hr active Not Available Not Available Not Available ondansetron HCl 4 mg tablet TAKE 1 TABLET BY MOUTH EVERY 4 TO 6 HOURS active Not Available Not Available No t Available lovastatin 40 mg tablet TAKE 1 TABLET BY MOUTH EVERYDAY AT BEDTIME active Not Available Not Available No t Available spironolact one 100 mg tablet TAKE 1 TABLET BY MOUTH EVERY DAY 01/25 completed Not Available Not Available Not Available metoprolol succinate ER 100 mg tablet,exte nded release 24 hr TAKE 1 TABLET BY MOUTH EVERY 12 HOURS. active Not Available Not Available No t Available prednisone 5 mg tablet 10/28 completed Not Available Not Available Not Available atenolol 25 mg tablet Take 1 tablet every day by oral route. 07/17 completed Not Available Not Available Not Available valsartan 80 mg tablet TAKE 1 TABLET BY MOUTH EVERY DAY 07/17 completed Not Available Not Available Not Available ciprofloxac in 500 mg tablet TAKE 1 TABLET BY MOUTH EVERY 12 HOURS FOR 5 DAYS. 10/28 completed Not Available Not Available Not Available omeprazole 40 mg capsule,del ayed release TAKE 1 CAPSULE BY MOUTH QD 10/28 completed Not Available Not Available Not Available doxycycline monohydrate 100 mg tablet TAKE 1 TABLET (100 MG TOTAL) BY MOUTH 2 TIMES A DAY FOR 10 DAYS. TAKE WITH FOOD 10/28 completed Not Available Not Available Not Available triamterene 37.5 mg-hydrochl orothiazide 25 mg capsule TAKE 1 CAPSULE BY MOUTH EVERY OTHER DAY active Not Available Not Available No t Available acyclovir 800 mg tablet 08/21 completed Not Available Not Available Not Available Synthroid 175 mcg tablet Take 1 tablet every day by oral route. 02/11 completed Not Available Not Available Not Available nadolol 20 mg tablet 12/11 completed Not Available Not Available Not Available oxycodone-a cetaminophe n 5 mg-325 mg tablet Take 1 tablet every 6-8 hours by oral route as needed for 7 days. 03/02 completed Not Available Not Available Not Available alprazolam 0.5 mg tablet TAKE 1 TABLET BY MOUTH EVERY DAY NEEDED active Not Available Not Available No t Available amoxicillin 875 mg tablet TAKE 1 TABLET BY [...] completed Not Available Not Available Not Available oxycodone-a cetaminophe n 10 mg-325 mg tablet TAKE 1 TABLET BY MOUTH EVERY 6 HOURS NEEDED FOR 7 DAYS 04/07 completed Not Available Not Available Not Available dexamethaso ne 1 mg tablet 07/17 completed Not Available Not Available Not Available meclizine 25 mg tablet Take 1 tablet 3 times a day by oral route as needed for 3 days. 06/05 completed Not Available Not Available Not Available cephalexin 500 mg capsule TAKE 1 CAP ORALLY 4 TIMES A DAY FOR CELLULITI S FOR 10 DAYS 06/22 completed Not Available Not Available Not Available pantoprazol e 40 mg tablet,lisa yed release active Not Available Not Available Not Available ferrous sulfate 325 mg (65 mg iron) tablet TAKE 1 TABLET BY MOUTH TWICE A DAY active Not Available Not Available No t Available nystatin 100,000 unit/gram topical cream APPLY TO AFFECTED AREA TWICE A DAY active Not Available Not Available No t Available clotrimazol e-betametha sone 1 %-0.05 % topical cream APPLY TO [...] Not Available metoprolol succinate ER 25 mg tablet,exte nded release 24 hr TAKE 1 TABLET BY MOUTH EVERY DAY active Not Available Not Available No t Available ergocalcife rol (vitamin D2) 1,250 mcg (50,000 unit) capsule active Not Available Not Available Not Available loteprednol etabonate 0.5 % eye drops,suspe nsion 10/28 completed Not Available Not Available Not Available cefuroxime axetil 500 mg tablet 06/22 completed Not Available Not Available Not Available lovastatin 20 mg tablet Take 2 tablets every day by oral route. 02/11 completed Not Available Not Available Not Available ketoconazol e 2 % topical cream APPLY TO THE AFFECTED AREA(S) BY TOPICAL ROUTE ONCE DAILY active Not Available Not Available No t Available betamethaso ne dipropionat e 0.05 % topical ointment APPLY SPARINGLY TO AFFECTED AREA EVERY DAY 10/28 completed Not Available Not Available Not Available ondansetron 4 mg disintegrat ing tablet Take 1 tablet every 12 hours by oral route for 30 days. 08/25 completed Not Available Not Available Not Available doxycycline hyclate 100 mg tablet Take 1 tablet twice a day by oral route for 7 days. 03/13 completed Not Available Not Available Not Available spironolact one 50 mg tablet Take 1 tablet every day by oral route for 90 days. 08/18 completed Not Available Not Available Not Available oxycodone 5 mg tablet PLEASE SEE ATTACHED FOR DETAILED DIRECTION S 10/28 completed Not Available Not Available Not Available Bactrim DS 800 mg-160 mg tablet Take 1 tablet every 12 hours by oral route for 5 days. 2024 active Not Available Not Available Not Avai lable olmesartan 20 mg tablet Take 1 tablet every day by oral route. 08/03 completed Not Available Not Available Not Available insulin lispro (U-100) 100 unit/mL subcutaneou s pen PLEASE SEE ATTACHED FOR DETAILED DIRECTION S active Not Available Not Available No t Available Synthroid 137 mcg tablet TAKE 1 TABLET BY MOUTH EVERY DAY IN THE MORNING active Not Available Not Available No t Available Vitamin D3 25 mcg (1,000 unit) capsule TAKE 1 CAPSULE BY MOUTH EVERY MORNING. active Not Available Not Available No t Available Restasis 0.05 % eye drops in a dropperette INSTILL 1 DROP INTO BOTH EYES TWICE A DAY active Not Available Not Available No t Available nitrofurant oin monohydrate /macrocryst als 100 mg capsule TAKE 1 CAPSULE BY MOUTH EVERY 12 HOURS FOR 7 DAYS 06/26 completed Not Available Not Available Not Available lactulose 10 gram/15 mL oral solution TAKE 15ML BY MOUTH TWICE A DAY 01/25 completed Not Available Not Available Not Available Pain Relief Extra Strength (acetaminop hen) 500 mg tablet Take 1 tablet (500 mg total) by mouth every 6 hours as needed for pain. 2022 active Not Available Not Available Not Avai lable acetaminoph en 01/25 completed Not Available Not Available Not Available Vitamin C 500mg bid active Not Available Not Available Not Available betamethaso ne 01/25 completed Not Available Not Available Not Available tacrolimus 01/25 completed Not Available Not Available Not Available Imodium prn 06/05 completed Not Available Not Available Not Available ketoconazol e 01/25 completed Not Available Not Available Not Available Restasis active Not Available Not Avai lable Not Available BD Ultra-Fine Original Pen Needle 29 gauge x 1/2 INJECT 1 EACH DIRECTED 4 (FOUR) TIMES A DAY BEFORE MEALS AND NIGHTLY. active Not Available Not Available No t Available Lantus Solostar U-100 Insulin 100 unit/mL (3 mL) subcutaneou s pen INJECT 34-44 UNITS UNDER THE SKIN NIGHTLY AT BEDTIME. active Not Available Not Available No t Available Lantus Solostar U-100 Insulin 50 Units PM 11/25 completed Not Available Not Available Not Available Humalog KwikPen Insulin Sliding scale 04/07 completed Not Available Not Available Not Available cholecalcif mio (vitamin D3) 50 mcg (2,000 unit) capsule TAKE 1 CAPSULE BY MOUTH AT BEDTIME active Not Available Not Available No t Available Flovent Diskus 250 mcg/actuati on powder for inhalation INHALE 1 PUFF BY [...] Available Not Available Jardiance 10 mg tablet 02/19 /2020 completed Not Available Not Available Not Available Trulicity 1.5 mg/0.5 mL subcutaneou s pen injector Inject 0.5 mL every week by subcutane ous route. 11/25 completed Not Available Not Available Not Available Asmanex HFA 200 mcg/actuati on aerosol inhaler TAKE 2 PUFFS BY MOUTH TWICE A DAY active Not Available Not Available No t Available Arnuity Ellipta 200 mcg/actuati on powder for inhalation INHALE 1 PUFF EVERY DAY DIRECTED active Not Available Not Available No t Available Trulicity 3 mg/0.5 mL subcutaneou s pen injector INJECT 1 PEN SUBCUTANE OUSLY ONCE A WEEK 84 06/26 completed Not Available Not Available Not Available Vitals Date Recorded Body height Body mass index (BMI) Body weight Heart rate Oxygen saturation Oxygen saturation in Arterial blood by Pulse oximetry Systolic blood pressure Diastolic blood pressure Provider Name and Address Organization Details Last Updated DateTime 4 171.45 cm 32.2 kg/m2 37857.2 7 g 61 /min 97 % 97 % 130 mm[Hg] 74 mm[Hg] Bekah Hart [facility] 4 14:21:57 Date Recorded Body height Body mass index (BMI) Body weight Heart rate Oxygen saturation Oxygen saturation in Arterial blood by Pulse oximetry Systolic blood pressure Diastolic blood pressure Provider Name and Address Organization Details Last Updated DateTime 4 171.45 cm 33 kg/m2 52172.3 3 g 111 /min 97 % 97 % 128 mm[Hg] 86 mm[Hg] Mayra Narayanan [facility] 4 11:05:14 Date Recorded Body height Body mass index (BMI) Body weight Heart rate Oxygen saturation Oxygen saturation in Arterial blood by Pulse oximetry Systolic blood pressure Diastolic blood pressure Provider Name and Address Organization Details Last Updated DateTime 4 171.45 cm 32.9 kg/m2 59031.1 7 g 114 /min 96 % 96 % 130 mm[Hg] 72 mm[Hg] Bekah Hart [facility] 4 14:24:08 Date Recorded Body height Body mass index (BMI) Body weight Heart rate Oxygen saturation Oxygen saturation in Arterial blood by Pulse oximetry Systolic blood pressure Diastolic blood pressure Provider Name and Address Organization Details Last Updated DateTime 4 171.45 cm 34.5 kg/m2 402653. 54 g 121 /min 99 % 99 % 128 mm[Hg] 84 mm[Hg] Mayra Narayanan [facility] 4 14:26:54 Date Recorded Body height Heart rate Oxygen saturation Oxygen saturation in Arterial blood by Pulse oximetry Systolic blood pressure Diastolic blood pressure Provider Name and Address Organization Details Last Updated DateTime 5 171.45 cm 132 /min 88 % 88 % 124 mm[Hg] 80 mm[Hg] Mayra Drew [facility] 5 14:36:29 Social History Question Answer Notes LastModified by Organizat ion Details LastModified Time Tobacco Smoking Status Former Smoker Seble Lea rodriguez [facility] Internal [facility] 01/22/2018 09:03:51 What Was The Date Of [...] 50 mcg/0.25mL dose 1 completed Not Available [facility] 10/27/2023 13:24:45 COVID-19, mRNA, LNP-S, PF, 100 mcg/0.5mL dose or 50 mcg/0.25mL dose 1 completed Not Available [facility] 10/27/[facility] 13:24:45 Tdap 0 completed Not Available [facility] 10/27/2023 13:24:45 COVID-19, mRNA, LNP-S, PF, 30 mcg/0.3 mL dose 1 completed Not Available [facility] 10/27/2023 13:24:45 Hep B, unspecified formulation 1 completed Not Available [facility] 10/27/2023 13:24:45 Influenza, split virus, quadrivalent, preservative 1 completed Not Available [facility] 10/27/2023 13:24:45 Past Encounters Encounter ID Performer Location Encounter Start Date Encounter Closed Date Diagnosis/Indication Diagnosis SNOMED-CT Code Diagnosis ICD10 Code Diagnosis Note [id number] Neva Strong NP, S [facility] [address] [facility], [place] [address] 01/22/2018 08:53:35 01/22/2018 10:08:56 Calcific tendinitis of shoulder 94192545 M75.31 Insulin tr eated type 2 diabetes mellitus 576317343 Z79.4 stable, follow Shoulder joint pain 2679 08319 M25.519 Essential hypertension 93769521 I10 stable [id number] Neva Strong NP, S [facility] [address] [facility], [place] [address] 02/14/2018 09:02:06 02/16/2018 09:30:37 Tick bite 97703529 S30.861A Paroxysmal atrial fibrillation 322918880 I48.0 stable with eliquis, flecainide await appt in [facility] keep appt next week with DR. Bach be seen urgently if A-fib recurs and is persistant Type 2 luciano betes mellitus 12969383 E11.9 follow Essential hypertension 36922400 I10 well controlled [id number] Neva Strong NP, S [facility] [address] [facility], [place] [address] 04/13/2018 09:00:10 04/13/2018 09:44:20 Hypomagnesemia 623108307 E83.42 Type 2 luciano betes mellitus 62696325 E11.9 follow Paroxysmal atrial fibrillation 562169596 I48.0 stable Hypothyroidism 20557435 E03.9 Essential hypertension 02238726 I10 well controlled Hypercholesterolemia 136 84725 E78.00 [id number] Neva Strong NP, [facility] [address] [facility] [address] [facility] [place] [address] 05/15/2018 11:42:51 05/15/2018 12:22:09 Esophageal varices 31526127 I85.00 recent banding Atrial fibrillation 4943 6004 I48.91 on eliquis Essential hypertension 27444862 I10 well controlled Dehydration 47007649 E86 .0 resolved in [id number] Neva Strong NP, [facility] [address] [facility] [place] [address] 06/22/2018 14:59:39 06/22/2018 16:24:53 Chronic pelvic pain of female 657078188 R10.2 Esophageal varices 17136 008 I85.00 scheduled for third banding next week Type 2 luciano betes mellitus 52422200 E11.9 A1C 7.6 [id number] Neva Strong NP, [facility] [address] [facility] [place] [address] 07/17/2018 09:12:56 07/20/2018 08:36:51 Hypercholesterolemia 01705197 E78.00 Esophageal varices 89739 008 I85.00 banding last week with f/u in 2 weeks Hypothyroidism 92256640 E03.9 Type 2 luciano betes mellitus 90219201 E11.9 A1C 7.6 Essential hypertension 94795990 I10 well controlled Hypomagnesemia 734612947 E83.42 Acute cystitis 57420013 N30.00 72693 Neva Strong NP, [facility] [address] [facility] [place] [address] 08/03/2018 14:20:10 08/03/2018 15:49:59 Hypomagnesemia 990029542 E83.42 Doing labs today after visit Esophageal varices 67065 008 I85.00 3 bands 07/25- follow Atrial fibrillation 4943 6004 I48.91 on eliquis Essential hypertension 04603414 I10 well controlled , continue off olmesartan 65681 Neva Strong NP, S [facility] Internal Medicine [address] [facility], itmaurice Elam [facility] [place] [address] 09/11/2018 15:42:46 09/14/2018 11:18:25 Acute cystitis 82269267 N30.00 Shoulder pain 73417225 M 25.519 rest, prn ice, call if persistent 16115 Neva Strong NP, S [facility] [address] [facility], ite Mar[place] [facility] [place] [address] 11/14/2018 13:43:31 11/14/2018 15:09:29 Type 2 diabetes mellitus 20912002 E11.9 follow Esophageal varices 12429 008 I85.00 banded Atrial fibrillation 4943 6004 I48.91 on eliquis Hypercholesterolemia 136 37829 E78.00 Hypothyroidism 80953324 E03.9 Essential hypertension 93779875 I10 well controlled , Diarrhea 63727304 R19.7 Eczema 52048311 L30.9 OTC eucerin BID, December [facility] [address] [place] [address] 02/11/2019 13:57:01 02/11/2019 15:01:26 Abscess 278627100 L02.91 too swollen for proc today will give abx warm compress and gentle massage schedule i&d for next week Jaundice 82849563 R17 very mild has liver and gi specialist . seeing gi next week. seeing liver specialist in february for upper and lower endoscopy Nonalcohol ic steatohepatitis 282909041 K75.81 check u/s for ascites written order for ab u/s Dyspnea on exertion 6084 5006 R06.09 written order for cxr 54132 Marina [facility] Internal Medicine [address] [place] [address], [place] [address] 02/22/2019 14:14:29 02/22/2019 15:22:55 Abscess 385292577 L02.91 attempted to numb with 1.5 cc of lidocaine, but abscess was too swollen for complete anesthesia used 18 guage needle to create opening of which copious discharge was expressed will give additional week of abx warm compress and gentle massage schedule repeat i&d for next week Jaundice 34178250 R17 not apparent today has liver and gi specialist . seeing gi next week. seeing liver specialist in february for upper and lower endoscopy Nonalcohol ic steatohepatitis 922131442 K75.81 await us Dyspnea on exertion 6084 5006 R06.09 [place] [address] December [facility] [address] [place] [address] 03/04/2019 14:01:30 03/04/2019 15:25:18 Abscess 570878742 L02.91 f/u as planned the , sooner if needed Jaundice 35110799 R17 not apparent today has liver and gi specialist . seeing gi next week. seeing liver specialist in february for upper and lower endoscopy Nonalcohol ic steatohepatitis 876093331 K75.81 await us results pt had us done last week Dyspnea on exertion 6084 5006 R06.09 xr was clear will reevaluate at fu Submammary intertrigo 24 7356176 L30.4 11721 December [facility] Medicine [address] [place] [address] 03/13/2019 14:16:29 03/13/2019 14:37:51 Type 2 diabetes mellitus 12361288 E11.9 sees endocrinol ogy every 3 months will get labs with endo Esophageal varices 56528 008 I85.00 banded having endoscopy on 03/27 for another banding if needed Atrial fibrillation 4943 6004 I48.91 on eliquis Hypercholesterolemia 136 57425 E78.00 on lovastatin Hypothyroidism 86032774 E03.9 normal in january 2019 Essential hypertension 34713289 I10 well controlled , Diarrhea 44738522 R19.7 resolved Eczema 17986223 L30.9 resolved Insomnia 619179843 G47.0 0 rare use of lorazepam maybe once per month Vitamin D deficiency 347 79836 E55.9 83384 December [facility] Internal Medicine [address] [place] [address] [place] [address] 05/21/2019 11:45:40 05/21/2019 12:20:38 Chronic tension-type headache 569925448 G44.229 ? stress related seem to be improving Type 2 luciano betes mellitus 42753322 E11.9 sees endocrinol ogy every 3 months will get labs with endo Essential hypertension 48004744 I10 well controlled [address] [facility] Internal Medicine [address] [facility],[place] [address] 06/04/2019 16:00:31 06/04/2019 16:31:49 Type 2 diabetes mellitus 21550780 E11.9 sees endocrinol ogy every 3 months will get labs with endo Essential hypertension 33317251 I10 well controlled Temporal headache 540426 06 R51 Acute sinusitis 41021366 J01.90 will consider medrol dose pack if esr is normal may also consider flonase 08997 [facility] Internal Medicine [address] [facility],[place] [address] 07/15/2019 13:28:27 07/15/2019 14:30:04 Type 2 diabetes mellitus 39333456 E11.9 sees endocrinol ogy every 4 months will get labs with endo gets foot exa with endo had dm eye exam in september, due again in september Esophageal varices 91008 008 I85.00 banded had endo/cscop e 03/27 all normal Atrial fibrillation 4943 6004 I48.91 on eliquis Hypercholesterolemia 136 55036 E78.00 on lovastatin will have labs with endo Hypothyroidism 40144676 E03.9 normal in january 2019 Essential hypertension 26898601 I10 well controlled Insomnia 198894822 G47.0 0 using 2-3 times per week not sleeping well having trouble falling asleep lorazepam only helps intermitte ntly sometimes takes tylenol and that helps Body mass index 30+ - obesity 800910987 Z68.34 Active or passive immunization 137558720 Z23 had flu shot due for tdap next year Frontal headache 0634022 05 R51 [id number] [facility] Internal Medicine [address] [facility],[place] [address] 11/13/2019 15:00:05 11/13/2019 16:22:05 Type 2 diabetes mellitus 95078021 E11.9 sees endocrinol ogy every 4 months will get labs with endo gets foot exa with endo had dm eye exam in september, due again in september Esophageal varices 35213 008 I85.00 banded had endo/cscop e 03/27 all normal Atrial fibrillation 4943 6004 I48.91 on eliquis Hypercholesterolemia 136 18358 E78.00 on lovastatin will have labs with endo Hypothyroidism 52586511 E03.9 normal in january 2019 labs with endo usually Essential hypertension 39695529 I10 well controlled Insomnia 936574678 G47.0 0 sleeping better very rare need for lorazepam, maybe once a month Body mass index 30+ - obesity 122800258 Z68.34 Nausea 781940421 R11.0 try tums, evaluate diet if sx worsen consider f/u with gi Dizziness 663887503 R42 monitor, very mild Fatigue 91285981 R53.83 will see endo for that as well Vitamin D deficiency 347 48990 E55.9 Edema of l ower extremity 512756699 R60.0 she is on spironolac tone/lasix for liver started by GI seems likely it was related to diet already improving continue to monitor weights daily and call if increasing 38275 TRINO ZARAGOZA [facility] [address] [facility],[place] [address] 02/26/2020 10:48:59 02/26/2020 11:34:18 Nausea and vomiting 94446149 R11.2 patient reports loss of appetite and vomiting for the last week 19227 TRINO ZARAGOZA [facility] [address] [facility],[place] [address] 03/13/2020 15:32:36 03/13/2020 16:22:32 Atrial fibrillation 39757636 I48.91 stable Hepatic encephalopathy 02030902 K72.90 the patient reports brain fog Hepatorenal syndrome 512 68543 K76.7 will check ammonia level in the body and see how it is doing Jaundice 12166023 R17 pt is still jaundiced 90641 TRINO ZARAGOZA [facility] Medicine [address] [facility],[place] [address] 06/05/2020 10:38:36 06/05/2020 14:21:19 Hepatic failure 61710319 K72.90 will recheck ammonia level if better can stop the lactulose and just monitor Acid reflux 275755386 K2 1.9 will try taking omeprazole in the morning and see if improvemen t can take two if needed Type 2 luciano betes mellitus 96087784 E11.9 stable per last blood draw 56725 TRINO ZARAGOZA [facility] [address] [facility],[place] [facility] [address] 08/25/2020 14:10:45 08/25/2020 14:58:53 Hypercholesterolemia 16533022 E78.00 will check cholestero l Atrial fibrillation 4943 6004 I48.91 stable Essential hypertension 25482341 I10 BP excellent today Type 2 luciano betes mellitus 71845771 E11.9 consulting with cardiology on adjustment s 29613 TRINO ZARAGOZA [facility] [address] [facility],[place] [facility] [address] 11/25/2020 13:27:35 11/25/2020 14:57:41 Essential hypertension 30484382 I10 BP excellent today will need to fu with her cardiologi st Atrial fibrillation 4943 6004 I48.91 may be having runs of afib due to the fact her medication Type 2 luciano betes mellitus 31085494 E11.9 consults with endo with A1c measuremen t will need to fu with them for BW Hypothyroidism 45648224 E03.9 will fu with endo tomorrow for lab work Depressive disorder 3548 9007 F32.9 will start on sertraline and fu to see how she is doing 78326 TRINO ZARAGOZA [facility] [address] [facility],[place] [address] 01/04/2021 09:44:57 01/04/2021 10:38:55 Atrial fibrillation 26492649 I48.91 the patient was told by ER that she was having atrial fibrillati on Pain in ri t hip joint 0697980985 30577 M25.551 possible back or hip pain XR lumbar spine normal at specialist told by specialist given liver failure safest thing to take is vicodin or percocet 48605 TRINO ZARAGOZA [facility] [address] [facility],[place] [address] 04/07/2021 15:22:16 04/07/2021 15:56:03 Type 2 diabetes mellitus 82128594 E11.9 consults with endo with A1c measuremen t will need to fu with them for BW Atrial fibrillation 4943 6004 I48.91 the patient was told by ER that she was having atrial fibrillati on Essential hypertension 37688229 I10 BP excellent today will need to fu with her cardiologi st Hepatic failure 49950091 K72.90 will recheck ammonia level if better can stop the lactulose and just monitor Varicose v eins of lower extremity 28193052 I83.893 discussed US duplex for her varicose veins to see the extenttold patient to wear compressio n stockings Intermitte nt claudication 03786558 I73.9 will start with US duplex Steatosis of liver 1007 K76.0 has fu with specialist [id number] TRINO ZARAGOZA [facility] Internal Medicine [address] [place] [address] 07/14/2021 14:36:41 07/14/2021 15:35:20 Hypercholesterolemia 14109855 E78.2 recent check Abdominal mass 132873141 R19.02 will fu with US Type 2 luciano betes mellitus 40962077 E11.9 consults with endo with A1c measuremen t will need to fu with them for BW Steatosis of liver 1007 K76.0 has fu with specialist Atrial fibrillation 4943 6004 I48.0 stable Chronic he patic failure 941964824 K72.10 on transplant list, follows Hepatic encephalopathy 65039305 K72.10 stable on lactulose with recent test 46505 TRINO ZARAGOZA [facility] [address] [facility], [place] [address] 08/18/2021 10:18:23 08/18/2021 12:37:00 Splenic infarction 09134900 D73.5 fu with [facility] vei n thrombosis 99404456 I81 will fu with endo Atrial fibrillation 4943 6004 I48.0 stable Esophageal varices 81983 008 I85.00 has fu with endo to check for bleeds and if switch from Steatosis of liver 91295 1007 K76.0 has fu with specialist as well 67514 Tony Toure DO [facility] Internal [facility] [address] [facility],[place] [address] 10/06/2021 08:14:09 10/06/2021 15:45:49 Type 2 diabetes mellitus 00053486 E11.9 will be rech and get a1c and will be seeing her in november Esophageal varices 29529 008 I85.00 stable but will need to be followed carefully as she is back on eliquis Atrial fibrillation 4943 6004 I48.0 quiet and asymptomat ic Intermitte nt claudication 45169061 I73.9 quiet Chronic he patic failure 277666308 K72.10 still waiting for liver transplant Essential hypertension 49126909 I10 quiet and stable 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 914666965 K72.90 back on lactulose and doing much better [facility] re need to be diligent with meds while waiting for transplant [id number] TRINO ZARAGOZA [facility] Internal [facility] [address] [facility],[place] [address] 10/22/2021 08:46:19 10/22/2021 15:45:16 Atrial fibrillation 98861482 I48.0 stable Chronic he patic failure 583508549 K72.10 on transplant list, follows Esophageal varices 26720 008 I85.00 monitoring her bleeding Essential hypertension 81048419 I10 BP excellent today will need to fu with her cardiologi st [id number] Tony Toure DO [facility] Internal [facility] [address] [facility],[place] [address] 12/06/2021 14:29:25 12/06/2021 15:01:19 Hypothyroidism 39486961 E03.9 Type 2 luciano betes mellitus 59374235 E11.9 will be rech and get a1c and will be seeing her in november Atrial fibrillation 4943 6004 I48.0 quiet and asymptomat ic Essential hypertension 31737645 I10 quiet and stable Chronic he patic failure 645959651 K72.10 still waiting for liver transplant Fatigue 33829889 R53.83 83746 TRINO ZARAGOZA [facility] Internal Medicine [address] [place] [address] 01/31/2022 11:18:52 01/31/2022 12:07:22 Pressure ulcer 834026291 L89.899 will start on silvadene cream Candidiasis of skin 4988 3006 B37.2 given topical anti-funga l at home Atrial fibrillation 4943 6004 I48.0 stablestop ping eliquis and starting warfarin from specialist 33022 TRINO ZARAGOZA [facility] [address] [place] [address] 03/02/2022 11:40:03 03/02/2022 16:36:21 Atrial fibrillation 19937877 I48.0 stable Edema of l ower extremity 010378370 R60.0 will increase lasix to 30 mg and recheck a CMP Gastroesop hageal reflux disease 933341328 K21.9 will fu with omeprazole Cirrhosis of liver 007 K74.02 will recheck her ammonia level 66580 TRINO ZARAGOZA [facility] [address] [place] [address] 04/01/2022 14:20:42 04/01/2022 15:36:34 Type 2 diabetes mellitus 15813202 E11.9 consults with endo with A1c measuremen t will need to fu with them for BW Essential hypertension 26248900 I10 BP excellent today will need to fu with her cardiologi st Cough 16638346 R05.1 will give tessloalisa perkinses for cough Chronic ki dney disease stage 3 070381609 N18.31 will recheck CMP in two weeks after increase of lasix Edema of l ower extremity 734689243 R60.0 will increase lasix to 40mg and recheck a CMP 22466 TRINO ZARAGOZA [facility] [address] [place] [address] 06/22/2022 13:28:15 06/22/2022 14:25:21 Atrial fibrillation 95676723 I48.0 stableneed s refill warfarin Chronic ki dney disease stage 3 416405081 N18.31 stable Cirrhosis of liver 007 K74.02 stable 28036 [facility] [address] [facility],[place] [address] 07/29/2022 14:42:13 08/01/2022 09:09:56 Vasculitis of the skin 71740803 L95.8 fu in two weeks Internatio nal normalized ratio above reference range 147350014 R79.1 monitor through clinic 69717 TRINO ZARAGOZA [facility] [address] [facility],[place] [address] 10/28/2022 08:24:24 10/28/2022 14:45:46 Atrial fibrillation 78003816 I48.0 stableback on eliquis Hypothyroidism 34270876 E03.8 will f/u with endo tomorrow for lab work Type 2 luciano betes mellitus 91744963 E11.9 consults with endo with A1c measuremen t Essential hypertension 50367884 I10 BP excellent today will need to fu with her cardiologi st Advance care planning 71 4359510 Z71.89 on file Active or passive immunization 014358391 Z23 patient advised she is due for flu shot, tdap & shingles Chronic ki dney disease stage 3 490520433 N18.31 stable Chronic he patic failure 052276249 K72.10 on transplant list, follows Transplant ed liver present 421390338 Z94.4 doing really well 34408 TRINO ZARAGOZA [facility] [address] [facility],[place] [facility] [address] 01/25/2023 16:20:44 01/25/2023 17:00:20 Edema of lower extremity 080673122 R60.0 will fu with transplant surgeon [id number] TRINO ZARAGOZA [facility] [address] [facility],[place] [address] 02/07/2023 15:32:41 02/07/2023 17:23:08 Edema of lower extremity 813942901 R60.0 agreed to US venous and US arterial Splenic infarction 23403 003 D73.5 fu with [facility] Chronic ki dney disease stage 3 366981748 N18.31 stable Intermitte nt claudication 76456326 I73.9 will start with US duplex Peripheral venous insufficiency 77489435 I87.2 will set up with both duplex and venous Skin ulcer 06439189 L98. 491 will set up with US arterial and US duplex Transplant ed liver present 878386561 Z94.4 doing really well [id number] TRINO ZARAGOZA [facility] [address] [facility],[place] [address] 05/16/2023 08:00:07 05/16/2023 16:05:24 Portal vein thrombosis 21242944 I81 will fu with endo Splenic infarction 72826 003 D73.5 fu with [facility] Atrial fibrillation 4943 6004 I48.0 stableback on eliquis Essential hypertension 17191120 I10 BP excellent today will need to fu with her cardiologi st Gastroesop hageal reflux disease 215299868 K21.9 will fu with omeprazole Hypercholesterolemia 136 90185 E78.2 recent check Hypothyroidism 50763445 E03.8 fu with endo Intermitte nt claudication 78866769 I73.9 stable Pulmonary hypertension 97693207 I27.0 stable [id number] TRINO ZARAGOZA [facility] [address] [facility],[place] [address] 08/21/2023 15:35:21 08/21/2023 16:41:53 Trigger finger of right hand 1901269823 0902265 M65.311 will set up with ortho Tendinitis of left gluteal tendon 1468619390 13091 M76.02 told her to use a cushion or get a new chair Candidiasis of skin 4975 3006 B37.2 will have her use her nystatin on her left armpit [id number] TRINO ZARAGOZA [facility] [address] [facility],[place] [address] 12/01/2023 14:15:39 12/01/2023 15:28:21 Atrial fibrillation 47918622 I48.0 stableback on eliquis Asthma 447228256 J45.40 needs alt to flovent Essential hypertension 01761515 I10 f/u with her cardiologi st Candidiasis of skin 4986 3006 B37.2 stablewill take over the ketoconazo le cream Lipoma of back 460030233 D17.1 will monitor [id number] TRINO ZARAGOZA [facility] [address] [facility],[place] [address] 02/06/2024 10:59:49 02/06/2024 11:45:50 Depression screening 951864860 Z13.31 stable Acute urin sachin tract infection 929730047 N39.0 will start on amoxicilli n Lesion of liver 18499471 0 K72.10 stable Type 2 luciano betes mellitus 95748025 E11.9 consults with endo with A1c measuremen t Transplant ed liver present 738520205 Z94.4 doing really well Peripheral vascular disease 855196373 I73.9 stable Pulmonary hypertension 77197283 I27.0 stable Chronic ki dney disease stage 3 282948048 N18.31 stable Skin ulcer 26732097 L98. 491 stable [id number] TRINO ZARAGOZA [facility] [address] [facility],[place] [facility] [address] 03/12/2024 14:17:11 03/13/2024 09:24:06 Depression screening 364062052 Z13.31 stable Abdominal pain 43627395 R10.10 agreed to US abd and pelviswill r/o any other causes for the upper abdominal and pelvic discomfort s/p surgeryhas not had an imaging since November last year to recheck the area Acute urin sachin tract infection 526102173 N39.0 will set up with a recheck her urine to make sure resolution of the utiagreed to this [id number] TRINO ZARAGOZA [facility] [address] [facility],[place] [address] 06/26/2024 14:17:27 06/26/2024 14:58:48 Chronic kidney disease stage 3 249614265 N18.31 stable Hypothyroidism 34922686 E03.8 f/u with endo in October Type 2 luciano betes mellitus 46307010 E11.9 consults with endo in [id number] TRINO ZARAGOZA [facility] [address] [facility],[place] [address] 10/04/2024 14:12:33 10/04/2024 15:06:54 Acute urinary tract infection 906231305 N10 switch out to an alternativ e abx Transplant ed liver present 274413373 Z94.4 elevated creatinine , monitored by her transplant team Palpitations 47057979 R0 0.2 cardio ordered a 2 day holter monitor Atrial fibrillation 4943 6004 I48.0 waiting a culture Health Concerns Section Related Observation LastModified by Organization Detai ls LastModified Time None Recorded Concern Status LastModified by Organization Details LastModified Time None Recorded Advance Directives Directive None Recorded Payers Encounter Date Sequence Insurance Name Policy Number Policy Mayers Covered Member ID Mayers Member ID Guarantor Name 12/01/2023 1 [place] [employer] Elysia Valle [id number] Elysia Valle 12/01/2023 2 [place] [id number] Elysia Valle [id number] Valle 02/06/2024 1 [place] Elysia Valle [id number] Valle 02/06/2024 2 [place] [id number] Elysia Valle [id number] 31 Valle 03/12/2024 1 [place] Elysia Valle [id number] Valle 03/12/2024 2 [place] [id number] Elysia Valle [id number] 31 Valle 06/26/2024 1 [place] [place] Elysia Valle [id number] 4 Valle 06/26/2024 2 [place] [id number] Elysia Valle [id number] 31 Valle 10/04/2024 1 [place] Elysia Valle [id number] 4 Valle 10/04/2024 2 [place] [id number] Elysia Trevizo Valle [id number] Notes Date Note Type Note Provider Name a nd Address Organization Details Recorded Time 03/08/202 4 text/html medication check atrial fibrillation: stable, no issues asthma: needs to switch out to asmanex from flovent which is not covered anymore anxiety/insomnia: hasn't needed the xanax as much, sleeping and anxiety has been stable HTN: stable will take over ketoconazole from [facility] TRINO ZARAGOZA [address] [place], [address], [facility], [place] 12/01/2023 15:10:13 4 text/html c/o [...] chrondritiswill give her lidocaine TRINO ZARAGOZA [address] [place], [address], [facility], [place] 02/06/2024 11:36:35 4 text/html 3 [...] to make sure resolution TRINO ZARAGOZA [address] [place], [address], [facility], [place] 03/12/2024 14:54:00 4 text/html 3 [...] ankle swelling, orthopnea, palpitations TRINO ZARAGOZA [address] [place], [address], [facility], [place] 06/26/2024 14:43:04 5 text/html 3 mos f/u the patient is doing okaythe patient reports that she had a viral infection causing gastrointestinal symptomsgot very dehydrated, her creatinine elevated, has increased her fluids per transplant the patient symptoms have resolvednormal bowel movements and drinking enough water has a f/u with cardio for a holter for ongoing issues with her palpitations and a. fib will continue to monitor rest of her levels through transplant TRINO ZARAGOZA [address] [place], [address], [facility], [place] 10/04/2024 14:50:19 OBGyn Episode No OBEpisode recorded.
--- OUTSIDE RECORDS SUMMARY | 2024-10-07 15:24 | XMS_ITS | Continuity of Care Document ---
Author Organization [facility], [facility] Address [address] [place] [address] Assessment No assessment recorded. Plan of Treatment Reminders Order Date Submit Date Provider Last Modified By Organization Details Last Modified Time Details Appointments FOLLOW UP 15 2024 02:15P TRINO HOPKINS Not available Not available Not available Lab None recorded . Referral None recorded . Procedures None recorded . Surgeries None recorded . Imaging None recorded . Medication Orders Bactrim DS 800 mg-160 mg tablet [address] [place] [address]/Pharmacy #[id number], [address] [facility] [place], [address], 10/04/2024 14:41:08 Patient TargetsNo targets recorded. Patient InstructionsNo instructions recorded. Reason for Referral None Reported. Problems Name Problem SNOMED Code Status Onset Date Resolution Date Notes Provider Name and Address Organization Details Recorded Time Splenic infarcti on 38347294 Active 2021 Not Available [facility] 2 17:56:09 Portal vein thrombos is 87580063 Active 2021 Not Available [facility] 2 17:56:09 Pressure ulcer Active 2021 Not Available [facility] 2 17:56:09 Edema of lower extremit y 277223874 Active 2021 Not Available [facility] 2 17:56:09 Gastroes ophageal reflux disease 947067566 Active 2021 Not Available [facility] 2 17:56:09 Type 2 diabetes mellitus 89680494 Active 2017 Not Available [facility] 2 17:56:09 Hypothyr oidism 36663026 Active 2017 Not Available [facility] 2 17:56:09 Hypercho lesterol emia 49355147 Active 2017 Not Available [facility] 2 17:56:09 Acid reflux 475564429 Active 2017 Not Available [facility] 2 17:56:09 [facility] hyperten eric 28884972 Active 2017 Not Available [facility] 2 17:56:09 Pulmonar y hyperten eric 87153493 Active 2017 Not Available [facility] 2 17:56:09 Sarcoido sis 42382601 Active 2017 Dr. Kiera Reed Not Available [facility] 2 17:56:09 Atrial fibrilla tion 96373584 Active 2017 [facility] Available [facility] 2 17:56:09 Esophage al varices 74974911 Active 2017 Not Available [facility] 2 17:56:09 Adrenal adenoma 414806708 Active 2017 Not Available [facility] 2 17:56:09 Steatosi s of liver 179869282 Active 2017 Not Available [facility] 2 17:56:09 Chronic kidney disease stage 3 543262607 Active 2021 Not Available [facility] 2 17:56:09 Vasculit is of the skin 33307412 Active 2021 Not Available [facility] 2 17:56:09 Transpla nted liver present 258463051 Active 2022 TRINO ZARAGOZA [address] [place], [address], [facility] 3 14:21:59 Intermit tent claudica tion 89291709 Active 2022 TRINO ZARAGOZA [address] [place], [address], [facility] 3 16:01:13 Peripher al venous insuffic iency 96864166 Active 2022 TRINO ZARAGOZA [address] [place], [address], [facility] 3 16:01:43 Skin ulcer 42845141 Active 2022 TRINO ZARAGOZA [address] [place], [address], [facility] 3 16:04:37 Transpla ntation of liver Active 2022 TRINO ZARAGOZA [address] [place], [address], [facility] 3 16:07:06 Insomnia 662638677 Active 2022 TRINO ZARAGOZA [address] [place], [address], [facility] 3 14:53:51 Trigger finger of right hand 83153188981 851419 Active 2022 TRINO ZARAGOZA [address] [place] [address], [address], [facility] 3 16:07:03 Tendinit is of left gluteal tendon 53514533792 9108 Active 2022 TRINO ZARAGOZA [address] [place] [address], [address], [facility] 3 16:10:56 Candidia sis of skin 07885421 Active 2022 TRINO ZARAGOZA [address] [place] [address], [address], [facility] 3 16:21:15 Asthma 937253894 Active 2023 TRINO ZARAGOZA [address] [place] [address], [address], [facility] 4 14:52:04 Lipoma of back 336928960 Active 2023 TRINO ZARAGOZA [address] [place] [address], [address], [facility] 4 15:09:55 Peripher al vascular disease 014443264 Active 2023 TRINO ZARAGOZA [address] [place] [address], [address], [facility] 4 11:21:48 Acute urinary tract infectio n 351508193 Active 2023 TRINO ZARAGOZA [address] [place] [address], [address], [facility] 4 11:22:05 Lesion of liver 201418153 Active 2023 TRINO ZARAGOZA [address] [place] [address], , [facility] 4 11:26:53 Abdomina l pain 97827805 Active 2023 TRINO ZARAGOZA [address] [place] [address], [address], [facility] 4 14:39:40 Palpitat ions 20923056 Active 2024 TRINO ZARAGOZA [address] [place] [address], [address], [facility] 5 14:42:29 Notes:Some problems listed i n Documents: #[id number], #[id number] could not be added to this patient's chart. Please review these documents and add these problems to the patient's chart manually as needed. Problem Notes None recorded. Procedures Surgical History Date Name Laterality Status Provider Name and Address Organization Details Recorded Time 03/04/20 19 I&D completed Marina BASILIA Martino [address] [place] [address], [phone], [facility] 03/04/2019 14:43:51 02/23/20 19 I&D completed BASILIA Sanchez [address] [place] [address], [address], [facility] 02/22/2019 15:12:47 Partial Hysterectomy completed Neva Strong NP, S [address] [place] [address], [phone], [facility] 06/22/2018 15:38:16 Imaging Results None recorded. Procedure Notes None recorded. Medical Equipment None Reported. Allergies Allergen ID Allergen Name Allergen Category Reaction Reaction Severity Criticality Documentation Date Start Date Code Code System Note Provider Name and Address Organization Details Recorded Time 481 lisinopri l medicatio n Not available Not available Not available 12/05/2017 03087 RxNorm Seble Montoyasixto rodriguez [facility] 8 11:41:04 482 Augmentin medicatio n Not available Not available Not available 12/05/2017 08409 2 RxNorm December Salena, BASILIA [address] [place], [address], [facility] 9 16:14:00 486 tramadol medicatio n Not available Not available Not available 12/05/2017 85680 [facility] 8 12:05:04 488 Reglan medicatio n Not available Not available Not available 12/05/2017 9230 [facility] 8 12:05:35 Medications Name Sig Start Date [...] Not Available Vitals Date Recorded Body height Heart rate Oxygen saturation Oxygen saturation in Arterial blood by Pulse oximetry Systolic blood pressure Diastolic blood pressure Provider Name and Address Organization Details Last Updated DateTime 5 171.45 cm 132 /min 88 % 88 % 124 mm[Hg] 80 mm[Hg] Mayra Narayanan [facility] 5 14:36:29 Social History Question Answer Notes LastModified by Organizat ion Details LastModified Time Tobacco Smoking Status Former Smoker Seble rodriguez [facility] 01/22/2018 09:03:51 What Was [...] Cancer N Hospitalizations Y Thyroid Problems Y Hypothyroidism Y Lung Disease Y COPD N Depression N Defects or Inherited Disease N Anemia Y Anesthesia Complications N Mental Illness N Anxiety Disorder N Meniere's disease N Diabetes Y Obesity Y Arthritis N Mental Disorder N Congestive Heart Failure (CHF) N Abuse/Domestic Violence N Diverticulitis N Asthma N High Cholesterol Y Hepatitis [...] 50 mcg/0.25mL dose 1 completed Not Available [facility] 10/27/2023 13:24:45 COVID-19, mRNA, LNP-S, PF, 100 mcg/0.5mL dose or 50 mcg/0.25mL dose 1 completed Not Available [facility] 10/27/2023 13:24:45 Tdap 0 completed Not Available [facility] 10/27/2023 13:24:45 COVID-19, mRNA, LNP-S, PF, 30 mcg/0.3 mL dose 1 completed Not Available [facility] 10/27/2023 13:24:45 Hep B, unspecified formulation 1 completed Not Available [facility] 10/27/2023 13:24:45 Influenza, split virus, quadrivalent, preservative 1 completed Not Available [facility] 10/27/2023 13:24:45 Past Encounters Encounter ID Performer Location Encounter Start Date Encounter Closed Date Diagnosis/Indication Diagnosis SNOMED-CT Code Diagnosis ICD10 Code Diagnosis Note [id number] TRINO ZARAGOZA [facility] [address] [facility] [address] 10/04/2024 14:12:33 10/04/2024 15:06:54 Acute urinary tract infection 249877651 N10 switch out to an alternativ e abx Transplant ed liver present 321809704 Z94.4 elevated creatinine , monitored by her transplant team Palpitations 74108975 R0 0.2 cardio ordered a 2 day holter monitor Atrial fibrillation 4943 6004 I48.0 waiting a culture Health Concerns Section Related Observation LastModified by Organization Detai ls LastModified Time None Recorded Concern Status LastModified by Organization Details LastModified Time None Recorded Payers Encounter Date Sequence Insurance Name Policy Number Policy Mayers Covered Member ID Mayers Member ID Guarantor Name 10/04/2024 1 [place] [employer] Elysia Valle [id number] Elysia Valle 10/04/2024 2 [place] [id number] Elysia Valle [id number] Elysia Valle Notes Date Note Type Note Provider Name a nd Address Organization Details Recorded Time 5 text/html 3 mos f/u the patient [...] of her levels through transplant TRINO ZARAGOZA [address] [place] [address], [place], [address], [facility] 10/04/2024 14:50:19 OBGyn Episode No OBEpisode recorded.
== END ==
LOC: HO.CARD 13:00
PROVIDERS: PCP Internal Medicine
DX: R42 Dizziness and giddiness (principal)
CPT/HCPCS: 93225

== ENCOUNTER → 2024-10-07 13:04 | Outpatient (BNV) | payer MEDICARE, SELFPAY | PROVIDERS: PCP Internal Medicine; Visit Provider Internal Medicine Cardiovascular Disease | DX: I48.91 Unspecified atrial fibrillation (principal) | CPT/HCPCS: 93227 ==

== ENCOUNTER → 2024-10-11 09:34 | Outpatient (BNVA) | payer MEDICARE, SELFPAY | PROVIDERS: PCP Internal Medicine; Visit Provider Internal Medicine Cardiovascular Disease | DX: I95.1 Orthostatic hypotension (principal); Z79.899 Other long term (current) drug therapy | CPT/HCPCS: 99211 ==

== ENCOUNTER → 2024-11-18 14:59 | Outpatient (REF) | payer MEDICARE, SELFPAY ==
--- NOTE | 2024-11-18 15:02 | CA_ITS ---
Transthoracic Echocardiogram Patient (Last, First, Middle): Elysia Valle M Gender: Female Date of : 1960 Age: 64 Procedure Date: 11/18/2024 Procedure Type: Transthoracic Echocardiogram Location: OP Height: 170.18 cm Weight: 102.97 kg BSA: 2.13 m2 Heart Rate: bpm BP: 95 / 70 mmHg Counselor Dormitory: [facility] Referring MD: Esequiel Bach MD Symptoms: I48.19 - Other persistent atrial fibrillation Study Quality: Fair, contrast ECG Rhythm: Atrial Fibrillation Conclusions: - The left ventricular systolic function is normal. The visually estimated ejection fraction is between 55-60%. - No obvious valvular pathology seen on this study. Findings Procedure Information Contrast agent, definity, is being given per protocol without apparent complications. Left Ventricle Normal left ventricular cavity size. There is mildly increased left ventricular wall thickness. The left ventricular systolic function is normal. The visually estimated ejection fraction is between 55-60%. There is no evidence of regional wall motion abnormalities. Diastolic function is indeterminate on the basis of available data. Right Ventricle Normal right ventricular cavity size. There is mildly decreased right ventricular systolic function. Atria The left atrium is mildly dilated. The right atrium is normal in size. Aortic Valve There is a normal trileaflet aortic valve. There is mild calcification of the aortic valve. There is no aortic valve stenosis. There is no aortic valve regurgitation. Mitral Valve The mitral valve appears normal. There is no mitral valve regurgitation. There is no mitral valve stenosis. Pulmonic Valve The pulmonic valve is likely normal. Tricuspid Valve There is trace tricuspid valve regurgitation. There is no evidence of pulmonary hypertension. Great Vessels The asc aorta is normal in size. Venous The inferior vena cava is normal in size and collapses greater than 50% with inspiration. Pericardium/Pleural There is no evidence of pericardial effusion. Prior Study Comparison No significant change compared to prior study dated: 10/30/2020. Recommendations, Care & Conclusions No obvious valvular pathology seen on this study. Measurements 2D Linear Measurements IVSd: 1.17 0.6-0.9/0.6-1.0 cm LVIDd: 4.51 3.9-5.3/4.2-5.9 cm LVIDd Index: 2.12 2.4-3.2/2.2-3.1 cm/m2 LVIDs: 3.28 2.0-3.6 cm LVPWd: 1.21 0.7-1.1 cm LA Diam: 4.20 2.7-3.8/3.0-4.0 cm LAIDs Index: 1.97 1.5-2.3 cm/m2 LV Mass: 244.76 67-162/88-224 g LV Mass Index: 114.91 43-95/49-115 g/m2 LVOT Diam: 2.20 3.0+(-)1.3 cm 2D Systolic Function EF 4C: 65.30 >55% EF 2C: 59.90 >55% EF BiP: 63.10 >55% Mitral Valve MV Pk E: 1.43 MV Decel Time: 178.00 E'Lateral: 6.83 E'Medial: 5.88 E/E' Med: 24.30 E/E' Lat: 20.90 PHT: 52.00 MVA PHT: 4.23 Decel [place]: 8.15 Aortic Valve AoV Pk Antonio: 1.19 AoV Mn Antonio: 0.88 AoV VTI: 0.24 AoV Pk Grad: 6.00 Aov Mn Grad: 3.00 GARY Cont.VTI: 2.82 LVOT LVOT Pk Antonio: 0.95 LVOT Mn Antonio: 0.66 LVOT VTI: 0.18 LVOT Pk Grad: 4.00 LVOT Mn Grad: 2.00 LVOT Diam: 2.20 LVOT Area: 3.80 Diastolic Function MV Pk E: 1.43 E'Medial: 5.88 E/E' Med: 24.30 E' Laterial: 6.83 E/E' Lat: 20.90 Right Ventricle TAPSE (mm): 15.70 TVS' Antonio: 10.30 Tricuspid Valve TR Pk Antonio: 1.95 TR Pk Grad: 15.00 RA Press: 3.00 RVSP: 18.00 Great Vessels Aorta Sinus of Valsalva: 3.40 2.0-3.[address] Ridge: 2.43 1.7-3.4 cm Ao Asc: 3.40 2.1-3.4 cm Updated in Other Vendor System with Status of Final Everette Davila MD electronically signed on 11/19/2024 10:20:46 AM with status of Final
--- OUTSIDE RECORDS SUMMARY | 2024-11-18 17:20 | XMS_ITS | Patient Health Record ---
[facility] Address [address] [place] [address] Care Team Providers Care Hydrogen Plant Operator Name Role Phone Tony Toure MD Primary Care Provider Munira Heller Unavailable [phone] Allergies Allergen (clinical drug ingredient) Drug/Non Drug Allergy documented on EMR Reaction Allergy Type Onset Date Status rosuvastatin Rosuvastatin Calcium swelling Drug Allergy Active Tramadol & Dietary Manage Prod swelling Drug Allergy Active Reason For Referral No Information Medications Medication SIG (Take, Route, Frequency, Duration) Notes Start Date End Date Status Flecainide Acetate 100 MG TAKE 1 TABLET BY MOUTH TWICE A DAY Oral for 90 Not-Taking Ergocalciferol 52651 IU as directed Orally Active Vitamin D3 Not-Takin g Extra Depth Orthopedic Shoes (1 Pair) with Customized Heat Molded Multidensity Innersoles (3 Pair) as directed Dx: NIDDM/Polyneuropathy (E11.42), Hammertoe Foot Deformity (M20.41,M20.42), Preulcerative Skin Lesion(s) (L85.1 08/31/2022 Not-Taking Tacrolimus 0.2 MG as directed Orally Active Prednisone Not-Takin g Pain Extra Strength 500 MG 1 tablet as needed Orally every 6 hrs Active Fluticasone Propionate (Inhal) 250 MCG/BLIST 1 puff Inhalation Twice a day Not-Taking Lantus SoloStar 100 UNIT/ML INJECT 50 UNITS INTO SKIN *PLUS 2 UNITS TO PRIME EACH DOSE* Subcutaneous for 58 Active Nadolol 20 MG TAKE 1 TABLET BY MOUTH EVERY DAY Oral for 90 Not-Taking Mycophenolate Mofetil 250 MG 2 capsules Orally Twice a day for 30 day(s) Active Nystatin 330588 U/ML as directed Mouth/Throat Not-Taking Lovastatin 40 MG TAKE 1 TABLET BY MOUTH AT BEDTIME EVERY NIGHT Oral for 90 Active metFORMIN HCl 500 MG TAKE 1 TABLET BY MOUTH EVERY DAY Oral for 90 Not-Taking Restasis 0.05 % INSTILL 1 DROP INTO BOTH EYES TWICE A DAY Ophthalmic for 90 Active Docusate Sodium 100 MG 1 capsule as need ed Orally Once a day for 30 day(s) Not-Taking HumaLOG KwikPen 100 UNIT/ML INJECT UP TO 30 UNITS DIRECTED THREE TIMES DAILY AFTER MEALS Subcutaneous for 90 Active Synthroid 137 MCG TAKE 1 TABLET BY MOUTH EVERY DAY Oral for 90 Active Trulicity 1.5 MG/0.5ML INJECT 1.5 MG (1 PEN) INTO THE SKIN ONCE A WEEK Subcutaneous for 84 Not-Taking Magnesium Oxide 400 (240 Mg) MG TAKE 2 TABLETS BY MOUTH 3 TIMES A DAY Oral for 90 Active Lactulose 10 GM/15ML TAKE 15 ML BY MOUTH TWICE A DAY FOR 30 DAYS. Oral for 30 Not-Taking Xifaxan 550 MG TAKE 1 TABLET BY MOUTH EVERY 12 HOURS Oral for 30 Not-Taking Eliquis 5 MG TAKE 1 TABLET BY MOUTH TWICE A DAY Oral for 90 Active Spironolactone 100 MG TAKE 1 TABLET BY MOUTH EVERY DAY Oral for 90 Not-Taking Ondansetron HCl 4 MG TAKE 1 TABLET BY MOUTH EVERY 6 HOURS NEEDED FOR NAUSEA OR VOMITING Oral for 30 PRN Active D3 Super Strength 50 MCG (2000 UT) TAKE 2 CAPSULES BY MOUTH EVERY DAY Oral for 90 Not-Taking Flovent Diskus 250 MCG/ACT INHALE 1 PUFF TWICE A DAY BY FOR 90 DAYS. Inhalation for 90 Not-Taking Furosemide 40 MG TAKE 1 TABLET BY MOUTH EVERY DAY Orally Not-Taking Ferrous Sulfate 325 (65 Fe) MG TAKE 1 TABLET BY MOUTH TWICE A DAY Oral for 90 Not-Taking Omeprazole 40 MG TAKE 1 CAPSULE BY MOUTH TWICE A DAY Oral for 90 Not-Taking Arnuity Ellipta 200 MCG/ACT 1 puff Inhalation Once a day Active Bactrim Not-Taking [facility] Chewable C with Layne Hips 500 MG TAKE 1 TABLET BY MOUTH TWICE A DAY Oral for 30 Not-Taking Digoxin 125 MCG 1 tablet Orally Not-Taking Sulfamethoxazole-Trime thoprim 800-160 MG TAKE 1 TABLET BY MOUTH EVERY 12 HOURS FOR 5 DAYS Oral for 5 Not-Taking Triamterene-HCTZ Act stephan protonix 1 tab Oral for 14 days Not-Taking Senna Not-Taking Xanax 0.5 MG 1 tablet Orally Twice a day Active LORazepam 0.5 MG 1 tablet at bedtime as needed Orally Once a day PRN Not-Taking Sodium Chloride 1 GM as directed Orally Not-Taking Multivitamin Active Clotrimazole-Betametha sone 1-0.05 % APPLY TO AFFECTED AREA TWICE A DAY IN THE MORNING AND IN THE EVENING FOR 2 WEEKS External for 7 PRN Not-Taking Pantoprazole Sodium Active Acyclovir 800 MG 1 tablet Orally Twice a day for 10 day(s) Not-Taking Metoprolol Succinate 100 MG 1 capsule Orally twice a day Active Torsemide 20 MG 2 tablets Orally Twice daily Active Immunizations Vaccine Route Administration Date Status Comme nts Influenza Unknown 06/27/2022 Administered Influenza Unknown 07/26/2023 Administered Social History Tobacco Use: Social History Observation Description Date Details (start date - stop date) Never Smoker NA - NA Alcohol Screen Question Answer Notes Did you have a drink containing alcohol in the p ast year? No Points 0 Interpretation Negative Tobacco use other than smoking: Question Answer Notes Are you an other tobacco user? No Tobacco Control (Standard) Question Answer Notes Tobacco use: Nonsmoker Problems Problem Type SNOMED Code ICD Code Onset Dates Problem Status W/U Status Risk Notes Problem Acquired hammer toe of right foot (386298566737 9105) Other hammer toe(s) (acquired), right foot (M20.41) Active confirmed Problem Acquired hammer toe of left foot (450995183825 9103) Other hammer toe(s) (acquired), left foot (M20.42) Active confirmed Problem 548098211 Neuropathy (G62.9) Active confirmed Problem 23327104 Type 2 diabetes mellitus with polyneuropathy (E11.42) Active confirmed Vital Signs Blood pressure diastolic 72 mm Hg 11/08/2024 Height 5ft7in in 11/08/2024 Blood pressure systolic 110 mm Hg 11/08/2024 Weight 229 lbs 11/08/2024 BMI 35.86 kg/m2 11/08/2024 Encounters Encounter Location Date Provider Diagnosis [facility] [place] [address] [place] [address] 01/02/2024 Munira Crews Tinea unguium B35.1 and Type 2 diabetes mellitus with polyneuropathy E11.[address] [address] 03/19/2024 Munira Perica Tinea unguium B35.1 and Type 2 diabetes mellitus with polyneuropathy E11.[address] [address] 06/07/2024 Munira Perica Tinea unguium B35.1 and Type 2 diabetes mellitus with polyneuropathy E11.[address] [address] 08/20/2024 Munira Perica Tinea unguium B35.1 and Type 2 diabetes mellitus with polyneuropathy E11.[address] [address] 11/08/2024 Munira Perica Tinea unguium B35.1 and Type 2 diabetes mellitus with polyneuropathy E11.[address] [address] 10/30/2024 Munira Perica Assessments Encounter Date Diagnosis (ICD Code) Assessment Notes Treatment Notes Treatment Clinical Notes Section Notes 03/19/2024 Tinea unguium (ICD-10 - B35.1) 06/07/2024 Tinea unguium (ICD-10 - B35.1) 08/20/2024 Tinea unguium (ICD-10 - B35.1) 11/08/2024 Tinea unguium (ICD-10 - B35.1) 11/08/2024 Type 2 diabetes mellitus with polyneuropathy (ICD-10 - E11.42) 08/20/2024 Type 2 diabetes mellitus with polyneuropathy (ICD-10 - E11.42) 06/07/2024 Type 2 diabetes mellitus with polyneuropathy (ICD-10 - E11.42) 03/19/2024 Type 2 diabetes mellitus with polyneuropathy (ICD-10 - E11.42) 01/02/2024 Tinea unguium (ICD-10 - B35.1) 01/02/2024 Type 2 diabetes mellitus with polyneuropathy (ICD-10 - E11.42) Plan Of Treatment Next Appt Details Provider Name:Munira moraes, 01/29/2025 01:30:00 PM, [address] [facility], [place], [address], Insurance Providers Payer Name Payer Address Payer Phone Subscriber Number Group Number Insured Name Patient Relationship to Insured Coverage Start Date Coverage End Date Medicare [facility] [employer] [facility] [address] [place] [address] [id number] Elysia Valle Self - patient is the insured [employer] [address] [place] [address] [id number] Elysia Valle Self - patient is the [...] Reason Date(Month/Year) [facility] - Vomiting 04/2023 [facility] Incision became infected - 3 night stay 09/2022
--- OUTSIDE RECORDS SUMMARY | 2024-11-18 17:20 | XMS_ITS | Encounter Summary ---
Author Organization [facility], Address [address] [place] [address] Phone Care Team Providers Care Automation Machine Operator Name Role Phone Patti Bell PA-C Primary Care Provider [phone] Encounter Details Date Type Department Care Team (Late st Contact Info) Description 10/04/2022 Documentation Only [facility], - [address] [phone] Patti Bell PA-C [address] [place] [phone] Social History Tobacco Use Types Packs/Day Years Used Date Smoking Tobacco: Never Assessed Comments Unknown Sex and Gender Information Value Date Recorded Sex Assigned at Not on file Legal Sex Female 12:05 PM EDT Gender Identity Not on file Sexual Orientation Not on file documented as of this encounter Plan of Treatment Not on file documented as of this encounter Visit Diagnoses Not on filedocumented in this encounter Care Teams Automation Machine Operator Relationship Specialty Start Date End Date Patti Bell PA-C [address] [place] [address] PCP - General Physician Products Mechanical Design Engineer 03/12/20 documented as of this encounter
--- OUTSIDE RECORDS SUMMARY | 2024-11-18 17:20 | XMS_ITS ---
Author Organization [facility] Address [address] [place] [address] Care Team Providers Care Regulatory Compliance Director Name Role Phone Tony Toure MD Primary Care Provider Munira Heller Unavailable [phone] Allergies Allergen (clinical drug ingredient) Drug/Non Drug Allergy documented on EMR Reaction Allergy Type Onset Date Status rosuvastatin Rosuvastatin Calcium swelling Drug Allergy Active Tramadol & Dietary Manage Prod swelling Drug Allergy Active REASON FOR VISIT At Risk Footcare Medications Medication SIG (Take, Route, Frequency, Duration) Notes Start Date End Date Status Lactulose 10 GM/15ML TAKE 15 ML BY MOUTH TWICE A DAY FOR 30 DAYS. Oral for 30 Not-Taking Xifaxan 550 MG TAKE 1 TABLET BY MOUTH EVERY 12 HOURS Oral for 30 Not-Taking Spironolactone 100 MG TAKE 1 TABLET BY MOUTH EVERY DAY Oral for 90 Not-Taking D3 Super Strength 50 MCG (2000 UT) TAKE 2 CAPSULES BY MOUTH EVERY DAY Oral for 90 Not-Taking Omeprazole 40 MG TAKE 1 CAPSULE BY MOUTH TWICE A DAY Oral for 90 Not-Taking Nadolol 20 MG TAKE 1 TABLET BY MOUTH EVERY DAY Oral for 90 Not-Taking Nystatin 842941 U/ML as directed Mouth/Throat Not-Taking metFORMIN HCl 500 MG TAKE 1 TABLET BY MOUTH EVERY DAY Oral for 90 Not-Taking Docusate Sodium 100 MG 1 capsule as need ed Orally Once a day for 30 day(s) Not-Taking Trulicity 1.5 MG/0.5ML INJECT 1.5 MG (1 PEN) INTO THE SKIN ONCE A WEEK Subcutaneous for 84 Not-Taking Flecainide Acetate 100 MG TAKE 1 TABLET BY MOUTH TWICE A DAY Oral for 90 Not-Taking Vitamin D3 Not-Takin g Extra Depth Orthopedic Shoes (1 Pair) with Customized Heat Molded Multidensity Innersoles (3 Pair) as directed Dx: NIDDM/Polyneuropathy (E11.42), Hammertoe Foot Deformity (M20.41,M20.42), Preulcerative Skin Lesion(s) (L85.1 08/31/2022 Not-Taking Prednisone Not-Victor Manuelin g Fluticasone Propionate (Inhal) 250 MCG/BLIST 1 puff Inhalation Twice a day Not-Taking Bactrim Not-Taking protonix 1 tab Oral for 14 days Not-Taking LORazepam 0.5 MG 1 tablet at bedtime as needed Orally Once a day PRN Not-Taking Clotrimazole-Betametha sone 1-0.05 % APPLY TO AFFECTED AREA TWICE A DAY IN THE MORNING AND IN THE EVENING FOR 2 WEEKS External for 7 PRN Not-Taking Acyclovir 800 MG 1 tablet Orally Twice a day for 10 day(s) Not-Taking Eliquis 5 MG TAKE 1 TABLET BY MOUTH TWICE A DAY Oral for 90 Active Ondansetron HCl 4 MG TAKE 1 TABLET BY MOUTH EVERY 6 HOURS NEEDED FOR NAUSEA OR VOMITING Oral for 30 PRN Active Flovent Diskus 250 MCG/ACT INHALE 1 PUFF TWICE A DAY BY FOR 90 DAYS. Inhalation for 90 Not-Taking Ferrous Sulfate 325 (65 Fe) MG TAKE 1 TABLET BY MOUTH TWICE A DAY Oral for 90 Not-Taking Digoxin 125 MCG 1 tablet Orally Not-Taking Lovastatin 40 MG TAKE 1 TABLET BY MOUTH AT BEDTIME EVERY NIGHT Oral for 90 Active Restasis 0.05 % INSTILL 1 DROP INTO BOTH EYES TWICE A DAY Ophthalmic for 90 Active HumaLOG KwikPen 100 UNIT/ML INJECT UP TO 30 UNITS DIRECTED THREE TIMES DAILY AFTER MEALS Subcutaneous for 90 Active Synthroid 137 MCG TAKE 1 TABLET BY MOUTH EVERY DAY Oral for 90 Active Magnesium Oxide 400 (240 Mg) MG TAKE 2 TABLETS BY MOUTH 3 TIMES A DAY Oral for 90 Active Ergocalciferol 66759 IU as directed Orally Active Tacrolimus 0.2 MG as directed Orally Active Pain Extra Strength 500 MG 1 tablet as needed Orally every 6 hrs Active Lantus SoloStar 100 UNIT/ML INJECT 50 UNITS INTO SKIN *PLUS 2 UNITS TO PRIME EACH DOSE* Subcutaneous for 58 Active Mycophenolate Mofetil 250 MG 2 capsules Orally Twice a day for 30 day(s) Active Triamterene-HCTZ Act stephan Multivitamin Active Pantoprazole Sodium Active Metoprolol Succinate 100 MG 1 capsule Orally twice a day Active Torsemide 20 MG 2 tablets Orally Twice daily Active Arnuity Ellipta 200 MCG/ACT 1 puff Inhalation Once a day Active [facility] Chewable C with Layne Hips 500 MG TAKE 1 TABLET BY MOUTH TWICE A DAY Oral for 30 Not-Taking Senna Not-Taking Xanax 0.5 MG 1 tablet Orally Twice a day Active Sodium Chloride 1 GM as directed Orally Not-Taking Furosemide 40 MG TAKE 1 TABLET BY MOUTH EVERY DAY Orally Not-Taking Sulfamethoxazole-Trime thoprim 800-160 MG TAKE 1 TABLET BY MOUTH EVERY 12 HOURS FOR 5 DAYS Oral for 5 Not-Taking Social History Tobacco Use: Social History [...] (Standard) Question Answer Notes Tobacco use: Nonsmoker Vital Signs Height 5ft7in in 11/08/2024 Weight 229 lbs 11/08/2024 BMI 35.86 kg/m2 11/08/2024 Blood pressure systolic 110 mm Hg 11/08/19 25 Blood pressure diastolic 72 mm Hg 025 Encounters Encounter Location Date Provider Diagnosis [facility] [address] [address] 11/08/2024 Munira Crews Tinea unguium B35.1 and Type 2 diabetes mellitus with polyneuropathy E11.42 Assessments Encounter Date Diagnosis (ICD Code) Assessment Notes Treatment Notes Treatment Clinical Notes Section Notes 11/08/2024 Tinea unguium (ICD-10 - B35.1) 11/08/2024 Type 2 diabetes mellitus with polyneuropathy (ICD-10 - E11.42) Plan Of Treatment Next Appt Details Follow Up: 2 Months, Reason: Provider Name:Munira moraes, 01/29/2025 01:30:00 PM, [address] [place] [address], [phone], Procedure Notes * Category Sub-Category Detail Notes Debride Nail 6-10 Nail debridement Due to the cl inical pathology outlined in the exam findings, performance of this nail treatment is medically necessary as its management by an unskilled/untrained nonprofessional would put this patients foot and overall health at risk. Therefore, debridement to affected nail(s), as described in exam ( TA, T1, T2, T3, T4, T5, T6, T7, T8, T9, ), was performed exclusively by the physician of record to reduce/remove overall nail length, girth, thickness, subungual debris, and necrotic tissue, by manual and/or electrical means through the use of a nail nipper and/or dremel-type thread grinder, to a more viable healthy nail plate [...] to maintain effectiveness in symptomatic relief - 41557 Keratoma Treatment Parring or Cutting o f Benign Hyperkeratotic Lesion(s) (-57) More than 4 Lesions - Due to the at risk nature of the patients medical condition as documented in the exam findings, performance of this keratoderma treatment is medically necessary as its management by an unskilled/untrained nonprofessional would put this patients foot and overall health at risk. Therefore, the benign hyperkeratotic lesions, ( 9 ) in total, locations as stated and described in the exam ( TA T5 , T6, T7, T1 , SUB MTH (s), B/L, Plantar Heel(s), B/L), were pared, and/or cut utilizing a sterile 15 blade, tissue nippers, and/or power dremel instrumentation by the physician of record - 94216 Progress Notes * Elysia VALLEDOB:1960 (64 yo F)Acc No.[id number]:11/08/2024 Progress Note Patient:?Elysia VALLE Provider:?Munira Crews DPM :1960???Age:64 Y???Sex:Female D ate:11/08/2024 Address:[address] [place], [place] [address] , [id number] Pcp:Tony Toure MD Subjective: * Chief Complaints: * ???At Risk Footcare * HPI: ???At Risk footcare:?Pt States Last PCP Visit:?Date?06/25/2024 * ROS:?General/Constitutional:?Nausea?denies.?Vomiting?denies.?Hunger Thirst?denies.?Loss appetite?denies.?Chills?denies.?Fatigue?denies.?Fever?denies.?Night Sweats?denies.?Unexplained weight loss?denies.?Unexplained [...] Unspecified essential hypertension.? * Social History:?Tobacco Use:?Tobacco use other than smoking?Are you an other tobacco user??No ?Tobacco Control (Standard)?Tobacco use:?Nonsmoker ???Drugs/Alcohol:?Drugs?Have you used drugs other than those for medical reasons in the past 12 months??No ?Alcohol Screen?Did you have a drink containing alcohol in the past year??No ?Points?0 ?Interpretation?Negative ???Miscellaneous:?Caffeine: no, 1 cup of tea occassionally. ?Children: no. ?Exercise: no. ?Marital status: . ?Occupation: Retired. * Medications:?TakingArnuity E llipta 200 MCG/ACT Aerosol Powder Breath Activated 1 puff Inhalation Once a day Xanax 0.5 MG Tablet 1 tablet Orally Twice a day Triamterene-HCTZ Pantoprazole Sodium Multivitamin Torsemide 20 MG Tablet 2 tablets Orally Twice daily Metoprolol Succinate 100 MG Capsule ER 24 Hour Sprinkle 1 capsule Orally , Notes to Pharmacist: twice a dayErgocalciferol 89908 IU Tablet as directed Orally Pain Extra [...] Notes to Pharmacist: twice a dayTaking Ergocalciferol 95880 IU Tablet as directed Orally Taking Pain [...] puff Inhalation Twice a day Prednisone Nystatin 074201 U/ML Suspension Reconstituted as directed Mouth/Throat Nadolol [...] Twice a day Not-Taking/PRN Prednisone Not-Taking/PRN Nystatin 690189 U/ML Suspension Reconstituted as directed Mouth/Throat Not-Taking/PRN [...] BMI:35.86, Shoe size: 9.5, BP:110/72mm Hg, BS: not taken, Ht-cm: 170.18 cm, Wt-k.87 kg. * Examination: ???Ophthalmology Referral: ?DIABETES EYE EXAM?CQM Exceptions:: ?Hemoglobin A1c not performed?Neurological: ?SENSORY:?Neurological exam demonstrates , reduced light touch [...] to no pain on palpation due to neuropathy, TA, T1, T2, T3, T4, T5, T6, T7, T8, T9.?Dermatologic: ?SKIN FINDINGS:?Skin exam reveals Keratotic lesion(s) located at TA T5 , T6, T7, T1 , SUB MTH (s), B/L, Plantar Heel(s), B/L.?General Examination: ?FOOT EXAM:?Footwear Evaluation?Orthopedic: ?MUSCLE STRENGTH:?5/5 all groups in a symmetrical fashion, B/L.?FOOTWEAR:?fair condition.?Vascular: ?DP PULSES (B):?3/4, B/L.?PT PULSES (B):?3/4, B/L.?CAPILLARY FILL TIME:?immediate, all digits, B/L.? Assessment: * Assessment: 1.?Tinea unguium - B35.1???2 .?Type 2 diabetes mellitus with polyneuropathy - E11.42 (Primary)??? Plan: * Treatment: * Procedures:?Debride Nail 6-10:?Nail debridement?Due to the clinical pathology outlined in the exam findings, performance of this nail treatment is medically necessary as its management by an unskilled/untrained nonprofessional would put this patients foot and overall health at risk. Therefore, debridement to affected nail(s), as described in exam ( TA, T1, T2, T3, T4, T5, T6, T7, T8, T9, ), was performed exclusively by the physician of record to reduce/remove overall nail length, girth, thickness, subungual debris, and necrotic tissue, by manual and/or electrical means through the use of a nail nipper and/or dremel-type thread grinder, to a more viable healthy nail plate or bed tissue 6- 10 nails in total. Silver nitrate was used for any petechial bleeding as necessary. Definitive antifungal treatment options, both pharmaceutical and surgical, have been reviewed and discussed with the patient. The patient solely prefers the use of intermittent/as needed professional debridement services for their nail condition and understands the need for additional periodic treatments to maintain effectiveness in symptomatic relief - 30330.?Keratoma Treatment:?Parring or Cutting of Benign Hyperkeratotic Lesion(s)?(-57) More than 4 Lesions - Due to the at risk nature of the patients medical condition as documented in the exam findings, performance of this keratoderma treatment is medically necessary as its management by an unskilled/untrained nonprofessional would put this patients foot and overall health at risk. Therefore, the benign hyperkeratotic lesions, ( 9 ) in total, locations as stated and described in the exam (?TA?T5?, T6, T7, T1 ,?SUB MTH (s),?B/L,?Plantar Heel(s),?B/L), were pared, and/or cut utilizing a sterile 15 blade, tissue nippers, and/or power dremel instrumentation by the physician of record - 70133.? * Procedure Codes:?13092 DEBRI DE NAIL, 6 OR MORE, Modifiers: XS 07393 TRIM SKIN LESIONS, OVER 4, Modifiers: XS * Preventive Medicine:? ??Screening/Special Tests:?Fall Risk?Assessment:?Performed ?Screening:?No falls in the past year ?FALLS: Screening for Future Fall Risk?Have you had two or more falls in the past year??No ?Have you had any falls with injury in the past year??No * Follow Up:?2 Months * Images: * Sign off status: Completed true * Provider:?Munira Crews DPM Date:? Generated for Irma romo/Virgie/Anitra on:?11/18/2024 05:20 PM EST History and Physical Notes * [...] at TA T5 , T6, T7, T1 , SUB MTH (s), B/L, Plantar Heel(s), B/L Orthopedic FOOTWEAR: fair condition MUSCLE STRENGTH: 5/5 all groups in a symmetrical fashion, B/L General Examination FOOT EXAM: Lower Extrem ity Neurological Exam performed:: Yes Visual exam of foot performed:: Yes Date: 11/08/2024 Footwear Evaluation Footwear Evaluation performe d:: Yes Ophthalmology Referral DIABETES EYE EXAM Procedure Perform ed:: Yes ?Date of Exam Performed: 05/26/2024 Findings of Diabetic Eye Exam:: retinopa thy Vascular DP PULSES (B): 3/4, B/L PT PULSES (B): 3/4, B/L CAPILLARY FILL TIME: immediate, all digi ts, B/L Nails NAILS are: Elongated, overg rown, dystrophic, lytic, greater than 3mm thick, discolored and friable with crumbly malodorous subungual debris , with dull to no pain on palpation due to neuropathy, TA, T1, T2, T3, T4, T5, T6, T7, T8, T9 CQM Exceptions: Hemoglobin A1c not performed Reason:: No r porsche specified
--- OUTSIDE RECORDS SUMMARY | 2024-11-18 17:20 | XMS_ITS ---
Author Organization [facility] yes[facility] Mangum Address [address] [place] [address] Care Team Providers Care Associate Civil Engineer Name Role Phone Tony Toure MD Primary Care Provider Munira Heller Unavailable [phone] Allergies Allergen (clinical drug ingredient) Drug/Non Drug Allergy documented on EMR Reaction Allergy Type Onset Date Status rosuvastatin Rosuvastatin Calcium swelling Drug Allergy Active Tramadol & Dietary Manage Prod swelling Drug Allergy Active Medications Medication SIG (Take, Route, Frequency, Duration) Notes Start Date End Date Status protonix 1 tab Oral for 14 days Not-Taking Acyclovir 800 MG 1 tablet Orally Twice a day for 10 day(s) Not-Taking Bactrim Not-Taking LORazepam 0.5 [...] TIMES A DAY Oral for 90 Active Lovastatin 40 MG TAKE 1 TABLET BY MOUTH AT BEDTIME EVERY NIGHT Oral for 90 Active Lantus SoloStar 100 UNIT/ML INJECT 50 UNITS INTO SKIN *PLUS 2 UNITS TO PRIME EACH DOSE* Subcutaneous for 58 Active Restasis 0.05 % INSTILL 1 DROP INTO BOTH EYES TWICE A DAY Ophthalmic for 90 Active HumaLOG KwikPen 100 UNIT/ML INJECT UP TO 30 UNITS DIRECTED THREE TIMES DAILY AFTER MEALS Subcutaneous for 90 Active Synthroid 137 MCG TAKE 1 TABLET BY MOUTH EVERY DAY Oral for 90 Active Metoprolol Succinate 100 MG 1 capsule Orally twice a day Active Tacrolimus 0.2 MG as directed Orally Active Mycophenolate Mofetil 250 MG 2 capsules Orally Twice a day for 30 day(s) Active Ergocalciferol 13198 IU as directed Orally Active Pain Extra [...] FOR 5 DAYS Oral for 5 Not-Taking Sodium Chloride 1 GM as directed Orally Not-Taking [facility] Chewable C with Layne Hips 500 MG TAKE 1 TABLET BY MOUTH TWICE A DAY Oral for 30 Not-Taking Arnuity Ellipta 200 MCG/ACT 1 puff Inhalation Once a day Active Senna Not-Taking Furosemide 40 MG TAKE 1 TABLET BY MOUTH EVERY DAY Orally Not-Taking Omeprazole 40 MG TAKE 1 CAPSULE BY MOUTH TWICE A DAY Oral for 90 Not-Taking Lactulose 10 GM/15ML TAKE 15 ML BY MOUTH TWICE A DAY FOR 30 DAYS. Oral for 30 Not-Taking Spironolactone 100 MG TAKE 1 TABLET BY MOUTH EVERY DAY Oral for 90 Not-Taking D3 Super Strength 50 MCG (2000 UT) TAKE 2 CAPSULES BY MOUTH EVERY DAY Oral for 90 Not-Taking Xifaxan 550 MG TAKE 1 TABLET BY MOUTH EVERY 12 HOURS Oral for 30 Not-Taking Docusate Sodium 100 [...] MOUTH EVERY DAY Oral for 90 Not-Taking Prednisone Not-Takin g Fluticasone Propionate (Inhal) 250 MCG/BLIST 1 puff Inhalation Twice a day Not-Taking Nystatin 500610 U/ML as directed Mouth/Throat Not-Taking Vitamin D3 [...] 2 WEEKS External for 7 PRN Not-Taking Encounters Encounter Location Date Provider Diagnosis [facility] [address] [id number] 10/30/2024 Munira Crews Plan Of Treatment Next Appt Details Provider Name:Munira moraes, 01/29/2025 01:30:00 PM, [address] [place] [address], [phone], Progress Notes * YAJAIRAElysiaDOB:1960 (64 yo F)Acc No.[id number]:10/30/2024 Progress Note Patient:?Elysia VALLE Provider:?Munira Crews DPM :1960???Age:64 Y???Sex:Female D ate:10/30/2024 Address:[address] [place], [place] [id number] Pcp:Tnoy Toure MD Subjective: * Chief Complaints: * ??? * HPI: ???At Risk footcare:?Pt States Last PCP Visit:?Date?04/25/2024 * Medical History:?Anemia, Ast hma, Back,Hip,and Knee pain, Diabetic, Heart disease, High blood pressure, Liver disease, Thyroid, Measles, Mumps, Chicken pox, Transfusions. * Medications:?Taking Arnuity Ellipta 200 MCG/ACT Aerosol Powder Breath [...] to Pharmacist: twice a day, Taking Ergocalciferol 50518 IU Tablet as directed Orally , Taking [...] day , Not-Taking/PRN Prednisone , Not-Taking/PRN Nystatin 587432 U/ML Suspension Reconstituted as directed Mouth/Throat , [...] as directed Orally , Not-Taking/PRN Senna * Allergies:?Tramadol & Dietar y Manage Prod: swelling, Rosuvastatin Calcium: swelling. Objective: * Vitals:? Assessment: Plan: * Treatment: * Images: * The named appointment provid er may or may not be the originator of this progress note, and it is not deemed complete until electronically signed by the appointment provider. Sign off status: Pending * Provider:?Munira Crews DPM Date:?01/2025 Generated for Irma romo/Virgie/Anitra on:?11/18/2024 05:20 PM EST History and Physical Notes * HPI (History of Present Illness) Category Sub-Category Detail Notes Category Not es At Risk footcare Pt States Last PCP Visit: Date: 4
--- OUTSIDE RECORDS SUMMARY | 2024-11-18 17:20 | XMS_ITS | Encounter Summary ---
Author Organization [facility], Address [address] [place] [address] Phone Care Team Providers Care Edger Saw Operator Name Role Phone Patti Bell PA-C Primary Care Provider Encounter Details Date Type Department Care Team (Late st Contact Info) Description 07/28/2022 Documentation Only [facility], - [address] [phone] Patti Bell PA-C [address] [place] [phone] Social History Tobacco Use Types Packs/Day Years Used Date Smoking Tobacco: Never Assessed Comments Unknown Sex and Gender Information Value Date Recorded Sex Assigned at Not on file Legal Sex Female 12:05 PM EDT Gender Identity Not on file Sexual Orientation Not on file COVID-19 Exposure Response Date Recorded In the last 10 days, have yo u been in contact with someone who was confirmed or suspected to have Coronavirus/COVID-19? No / Unsure 06/28/2022 1:44 PM EDT documented as of this encounter Plan of Treatment Not on file documented as of this encounter Visit Diagnoses Not on filedocumented in this encounter Care Teams Edger Saw Operator Relationship Specialty Start Date End Date Patti Bell PA-C [address] [place] [phone] PCP - General Physician Assembler Chassis 03/12/20 documented as of this encounter
--- OUTSIDE RECORDS SUMMARY | 2024-11-18 17:20 | XMS_ITS | Data Portability ---
Author Organization [facility], Home Service Address [address] [place] [address] Assessment No assessment recorded. Plan of Treatment Reminders Order Date Submit Date Provider Last Modified By Organization Details Last Modified Time Details Appointments FOLLOW UP 15 2024 02:15P TRINO HOPKINS Not available Not available Not available Lab urinalysi s complete, reflex culture 2023 024 [facility] Draw Station, [facility] [address], [place], [address], 04/22/2024 11:47:21 urinalysi s, dipstick 2023 024 [facility], [address] [place] [address], [address], [place], [address], 02/06/2024 11:38:42 culture, urine 2023 024 [facility] Draw Station, [facility] [address] [facility] [place], [address], 02/07/2024 11:24:53 Referral None recorded. Procedures None recorded. Surgeries None recorded. Imaging US, abdomen + pelvis 2023 024 [email or web address] [facility] (Imaging), [address] [place] [address], [address], 03/13/2024 09:24:06 Medication Orders Bactrim DS 800 mg-160 mg tablet 2024 025 [facility]armacy #[id number], [address] [place], [address], 10/04/2024 14:41:08 amoxicill in 875 mg tablet 2023 024 [facility]/Pharmacy #[id number], [address] [place], [address], 06/26/2024 14:18:58 Asmanex HFA 200 mcg/actua tion aerosol inhaler 2023 [id number] [address] [place], [address], 12/04/2023 13:00:50 ketoconaz ole 2 % topical cream 2023 024 [id number] [address] [place], [address], 12/01/2023 15:00:14 Patient TargetsNo targets recorded. Patient InstructionsNo instructions recorded. Reason for Referral None Reported. Results Created Date Observation Date Name Description Value Unit Range Abnormal Flag Note LastModifiedBy Organization Detail LastModifiedTime Result Notes None recorded. Problems Name Problem SNOMED Code Status Onset Date Resolution Date Notes Provider Name and Address Organization Details Recorded Time Splenic infarcti on 19111438 Active 2021 Not Available [facility] 2 17:56:09 Portal vein thrombos is 48262903 Active 2021 Not Available [facility] 2 17:56:09 Pressure ulcer Active 2021 Not Available [facility] 2 17:56:09 Edema of lower extremit y 035571025 Active 2021 Not Available [facility] 2 17:56:09 Gastroes ophageal reflux disease 613862247 Active 2021 Not Available [facility] 2 17:56:09 Type 2 diabetes mellitus 10234408 Active 2017 Not Available [facility] 2 17:56:09 Hypothyr oidism 60090109 Active 2017 Not Available [facility] 2 17:56:09 Hypercho lesterol emia 54028979 Active 2017 Not Available [facility] 2 17:56:09 Acid reflux 310089149 Active 2017 Not Available [facility] 2 17:56:09 [facility] hyperten eric 67365835 Active 2017 Not Available [facility] 2 17:56:09 Pulmonar y hyperten eric 55203752 Active 2017 Not Available [facility] 2 17:56:09 Sarcoido sis 67194877 Active 2017 Dr. Kiera Reed Not Available [facility] 2 17:56:09 Atrial fibrilla tion 81847650 Active 2017 Not Available [facility] 2 17:56:09 Esophage al varices 75879304 Active 2017 Not Available [facility] 2 17:56:09 Adrenal adenoma 458370972 Active 2017 Not Available [facility] 2 17:56:09 Steatosi s of liver 142439304 Active 2017 Not Available [facility] 2 17:56:09 Chronic kidney disease stage 3 503930436 Active 2021 Not Available [facility] 2 17:56:09 Vasculit is of the skin 26773042 Active 2021 Not Available [facility] 2 17:56:09 Transpla nted liver present 432551587 Active 2022 TRINO ZARAGOZA [address] [place], [address], [facility] 3 14:21:59 Intermit tent claudica tion 88997764 Active 2022 TRINO ZARAGOZA [address] [place], [address], [facility] 3 16:01:13 Peripher al venous insuffic iency 36770041 Active 2022 TRINO ZARAGOZA [address] [place] [address], [address], [facility] 3 16:01:43 Skin ulcer 67664362 Active 2022 TRINO ZARAGOZA [address] [place] [address], [address], [facility] 3 16:04:37 Transpla ntation of liver Active 2022 TRINO ZARAGOZA [address] [place] [address], [address], [facility] 3 16:07:06 Insomnia 012269930 Active 2022 TRINO ZARAGOZA [address] [place] [address], [address], [facility] 3 14:53:51 Trigger finger of right hand 81592579084 244008 Active 2022 TRINO ZARAGOZA [address] [place] [address], [address], [facility] 3 16:07:03 Tendinit is of left gluteal tendon 65539812363 9108 Active 2022 TRINO ZARAGOZA [address] [place] [address], [address], [facility] 3 16:10:56 Candidia sis of skin 50474976 Active 2022 TRINO ZARAGOZA [address] [place] [address], [address], [facility] 3 16:21:15 Asthma 310972423 Active 2023 TRINO ZARAGOZA [address] [place] [address], [address], [facility] 4 14:52:04 Lipoma of back 353626389 Active 2023 TRINO ZARAGOZA [address] [place] [address], [address], [facility] 4 15:09:55 Peripher al vascular disease 602535911 Active 2023 TRINO ZARAGOZA [address] [place] [address], [address], [facility] 4 11:21:48 Acute urinary tract infectio n 391487864 Active 2023 TRINO ZARAGOZA [address] [place] [address], [address], [facility] 4 11:22:05 Lesion of liver 944085908 Active 2023 TRINO ZARAGOZA [address] [place] [address], , [facility] 4 11:26:53 Abdomina l pain 08922375 Active 2023 TRINO ZARAGOZA [address] [place] [address], [address], [facility] 4 14:39:40 Palpitat ions 40113895 Active 2024 TRINO ZARAGOZA [address] [place] [address], [address], [facility] 5 14:42:29 Notes:Some problems listed i n Documents: #[id number], #[id number] could not be added to this patient's chart. Please review these documents and add these problems to the patient's chart manually as needed. Problem Notes None recorded. Procedures Surgical History Date Name Laterality Status Provider Name and Address Organization Details Recorded Time 03/04/20 19 I&D completed BASILIA Sanchez [address] [place] [address], [address], [facility] 03/04/2019 14:43:51 02/23/20 19 I&D completed BASILIA Sanchez [address] [place] [address], [address], [facility] 02/22/2019 15:12:47 Partial Hysterectomy completed Neva Strong NP, S [address] [place] [address], [address], [facility] 06/22/2018 15:38:16 Imaging Results None recorded. Procedure Notes None recorded. Medical Equipment None Reported. Allergies Allergen ID Allergen Name Allergen Category Reaction Reaction Severity Criticality Documentation Date Start Date Code Code System Note Provider Name and Address Organization Details Recorded Time 481 lisinopri l medicatio n Not available Not available Not available 12/05/2017 65490 [facility] 8 11:41:04 482 Augmentin medicatio n Not available Not available Not available 12/05/2017 13534 2 RxNorm December [facility] [place], [place] [address] [place], [address], [facility] 9 16:14:00 486 tramadol medicatio n Not available Not available Not available 12/05/2017 99521 RxNorm [facility] 8 12:05:04 488 Reglan medicatio n Not available Not available Not available 12/05/2017 9230 RxNorm Seble [facility] 8 12:05:35 Medications Name Sig Start Date [...] TAKE 1 TABLET DAILY FOR 4 DAYS 08/01 /2022 completed Not Available Not Available Not Available [...] Available Not Available Not Available sulfamethox azole 800 mg-trimetho prim 160 mg tablet TAKE 1 TABLET BY MOUTH EVERY 12 HOURS FOR 5 DAYS active Not Available Not Available No t Available omeprazole 40 mg capsule,del ayed release [...] 1 TABLET BY MOUTH EVERY DAY NEEDED 2024 active Not Available Not Available Not Avai lable amoxicillin 875 mg tablet TAKE 1 TABLET [...] Not Available Not Available No t Available furosemide 20 mg tablet TAKE 2 [...] Available Not Available Not Available betamethaso ne 05/03 /2023 completed Not Available Not Available Not Available [...] Updated DateTime 4 171.45 cm 32.2 kg/m2 40320.2 7 g 61 /min 97 % 97 % 130 mm[Hg] 74 mm[Hg] Bekah Hart [facility] 4 14:21:57 Date Recorded Body height Body mass index (BMI) Body weight Heart rate Oxygen saturation Oxygen saturation in Arterial blood by Pulse oximetry Systolic blood pressure Diastolic blood pressure Provider Name and Address Organization Details Last Updated DateTime 4 171.45 cm 33 kg/m2 22568.3 3 g 111 /min 97 % 97 % 128 mm[Hg] 86 mm[Hg] Mayra Narayanan [facility] 4 11:05:14 Date Recorded Body height Body mass index (BMI) Body weight Heart rate Oxygen saturation Oxygen saturation in Arterial blood by Pulse oximetry Systolic blood pressure Diastolic blood pressure Provider Name and Address Organization Details Last Updated DateTime 4 171.45 cm 32.9 kg/m2 80493.1 7 g 114 /min 96 % 96 % 130 mm[Hg] 72 mm[Hg] Bekah Hart [facility] 4 14:24:08 Date Recorded Body height Body mass index (BMI) Body weight Heart rate Oxygen saturation Oxygen saturation in Arterial blood by Pulse oximetry Systolic blood pressure Diastolic blood pressure Provider Name and Address Organization Details Last Updated DateTime 4 171.45 cm 34.5 kg/m2 038756. 54 g 121 /min 99 % 99 % 128 mm[Hg] 84 mm[Hg] Mayra Narayanan [facility] 4 14:26:54 Date Recorded Body height Heart rate Oxygen saturation Oxygen saturation in Arterial blood by Pulse oximetry Systolic blood pressure Diastolic blood pressure Provider Name and Address Organization Details Last Updated DateTime 5 171.45 cm 132 /min 88 % 88 % 124 mm[Hg] 80 mm[Hg] Mayra Narayanan [facility] 5 14:36:29 Social History Question Answer Notes LastModified by Organizat ion Details LastModified Time Tobacco Smoking Status Former Smoker Seble Lea rodriguez [facility] 01/22/2018 09:03:51 What Was The Date Of Your Most Recent Tobacco Screening? 06/26/2024 [email or web address] Information not available 06/26/2024 Do You Or Have You Ever Used Any Other Forms Of Tobacco Or Nicotine? No [email or web address] Information not available 12/06/2021 Sex: Unknown Functional Status None recorded. Mental Status None recorded. Family History Nothing Reported. Medical History Condition Response Allergies/Hayfever N Coronary Artery Disease N Heart Problems Y Gout N Blood Diseases N Hyperthyroidism N Breast Cancer N Hospitalizations Y Thyroid Problems Y Lung Disease Y Hypothyroidism Y COPD N Depression N Defects or [...] virus, quadrivalent, preservative 1 completed Not Available [facility] 10/27/2023 13:24:45 Past Encounters Encounter ID Performer Location Encounter Start Date Encounter Closed Date Diagnosis/Indication Diagnosis SNOMED-CT Code Diagnosis ICD10 Code Diagnosis Note [id number] Neva Strong NP, S [facility] [address] [facility], [place] [address] 01/22/2018 08:53:35 01/22/2018 10:08:56 Calcific tendinitis of shoulder 18100317 M75.31 Insulin tr eated type 2 diabetes mellitus 981704656 Z79.4 stable, follow Shoulder joint pain 2679 70862 M25.519 Essential hypertension 50573029 I10 stable [id number] Neva Strong NP, Miguel [facility] [address] [facility], [place] [address] 02/14/2018 09:02:06 02/16/2018 09:30:37 Tick bite 48608222 S30.861A Paroxysmal atrial fibrillation 116917082 I48.0 stable with eliquis, flecainide await appt in [facility] keep appt next week with DR. Bach be seen urgently if A-fib recurs and is persistant Type 2 luciano betes mellitus 29286047 E11.9 follow Essential hypertension 21387985 I10 well controlled [id number] Neva Strong NP, S [facility] [address] [facility], [employer] [place] [address] 04/13/2018 09:00:10 04/13/2018 09:44:20 Hypomagnesemia 737682659 E83.42 Type 2 luciano betes mellitus 34300095 E11.9 follow Paroxysmal atrial fibrillation 970410494 I48.0 stable Hypothyroidism 73957650 E03.9 Essential hypertension 71872013 I10 well controlled Hypercholesterolemia 136 81103 E78.00 [id number] Neva Strong NP, [facility] [address] [facility], [place] [address] 05/15/2018 11:42:51 05/15/2018 12:22:09 Esophageal varices 88421316 I85.00 recent banding Atrial fibrillation 4943 6004 I48.91 on eliquis Essential hypertension 97135767 I10 well controlled Dehydration 81545913 E86 .0 resolved in [facility] [id number] Neva Strong NP, [facility] [address] [facility],[place] [address] 06/22/2018 14:59:39 06/22/2018 16:24:53 Chronic pelvic pain of female 373274133 R10.2 Esophageal varices 01726 008 I85.00 scheduled for third banding next week Type 2 luciano betes mellitus 41157793 E11.9 A1C 7.6 [id number] Neva Strong NP, [facility] [address] [facility],[place] [address] 07/17/2018 09:12:56 07/20/2018 08:36:51 Hypercholesterolemia 40446965 E78.00 Esophageal varices 34905 008 I85.00 banding last week with f/u in 2 weeks Hypothyroidism 27823037 E03.9 Type 2 luciano betes mellitus 62027481 E11.9 A1C 7.6 Essential hypertension 03102053 I10 well controlled Hypomagnesemia 057421995 E83.42 Acute cystitis 71370070 N30.00 [id number] Neva Strong NP, [facility] [address] [facility],[place] [address] 08/03/2018 14:20:10 08/03/2018 15:49:59 Hypomagnesemia 935735130 E83.42 Doing labs today after visit Esophageal varices 53424 008 I85.00 3 bands 07/25- follow Atrial fibrillation 4943 6004 I48.91 on eliquis Essential hypertension 62566365 I10 well controlled , continue off olmesartan [id number] Neva Strong NP, [facility] [address] [facility], [place] [address] 09/11/2018 15:42:46 09/14/2018 11:18:25 Acute cystitis 94683000 N30.00 Shoulder pain 66470787 M 25.519 rest, prn ice, call if persistent [id number] Neva Strong NP, S [facility] [address] [facility],[place] [address] 11/14/2018 13:43:31 11/14/2018 15:09:29 Type 2 diabetes mellitus 34065646 E11.9 follow Esophageal varices 66291 008 I85.00 banded Atrial fibrillation 4943 6004 I48.91 on eliquis Hypercholesterolemia 136 41556 E78.00 Hypothyroidism 39242293 E03.9 Essential hypertension 82646703 I10 well controlled , Diarrhea 06706907 R19.7 Eczema 58020629 L30.9 OTC eucerin BID, December [facility] [address] [facility],[place] [address] 02/11/2019 13:57:01 02/11/2019 15:01:26 Abscess 797645162 L02.91 too swollen for proc today will give abx warm compress and gentle massage schedule i&d for next week Jaundice 21802486 R17 very mild has liver and gi specialist . seeing gi next week. seeing liver specialist in february for upper and lower endoscopy Nonalcohol ic steatohepatitis 082877687 K75.81 check u/s for ascites written order for ab u/s Dyspnea on exertion 6084 5006 R06.09 written order for cxr [id number] December [facility] [address] [facility],[place] [address] 02/22/2019 14:14:29 02/22/2019 15:22:55 Abscess 850433972 L02.91 attempted to numb with 1.5 cc of lidocaine, but abscess was too swollen for complete anesthesia used 18 guage needle to create opening of which copious discharge was expressed will give additional week of abx warm compress and gentle massage schedule repeat i&d for next week Jaundice 30913065 R17 not apparent today has liver and gi specialist . seeing gi next week. seeing liver specialist in february for upper and lower endoscopy Nonalcohol ic steatohepatitis 373267224 K75.81 await us Dyspnea on exertion 6084 5006 R06.09 [place] [id number] December [facility] [address] [place] [address] 03/04/2019 14:01:30 03/04/2019 15:25:18 Abscess 900941035 L02.91 f/u as planned the , sooner if needed Jaundice 68103186 R17 not apparent today has liver and gi specialist . seeing gi next week. seeing liver specialist in february for upper and lower endoscopy Nonalcohol ic steatohepatitis 057584690 K75.81 await us results pt had us done last week Dyspnea on exertion 6084 5006 R06.09 xr was clear will reevaluate at fu Submammary intertrigo 24 9099729 L30.4 [id number] December [facility] [address] [address] 03/13/2019 14:16:29 03/13/2019 14:37:51 Type 2 diabetes mellitus 63719572 E11.9 sees endocrinol ogy every 3 months will get labs with endo Esophageal varices 26276 008 I85.00 banded having endoscopy on 03/27 for another banding if needed Atrial fibrillation 4943 6004 I48.91 on eliquis Hypercholesterolemia 136 42995 E78.00 on lovastatin Hypothyroidism 97102148 E03.9 normal in january 2019 Essential hypertension 90886671 I10 well controlled , Diarrhea 83309281 R19.7 resolved Eczema 12685725 L30.9 resolved Insomnia 270186395 G47.0 0 rare use of lorazepam maybe once per month Vitamin D deficiency 347 49056 E55.9 [id number] December [facility] [address] [place] [address] 05/21/2019 11:45:40 05/21/2019 12:20:38 Chronic tension-type headache 640183209 G44.229 ? stress related seem to be improving Type 2 luciano betes mellitus 07467292 E11.9 sees endocrinol ogy every 3 months will get labs with endo Essential hypertension 91806858 I10 well controlled [id number] [facility] [address] [facility] [address],[place] [address] 06/04/2019 16:00:31 06/04/2019 16:31:49 Type 2 diabetes mellitus 51920472 E11.9 sees endocrinol ogy every 3 months will get labs with endo Essential hypertension 54729720 I10 well controlled Temporal headache 021312 06 R51 Acute sinusitis 74676159 J01.90 will consider medrol dose pack if esr is normal may also consider flonase [id number] [facility] [address] [facility],[place] [address] 07/15/2019 13:28:27 07/15/2019 14:30:04 Type 2 diabetes mellitus 44141142 E11.9 sees endocrinol ogy every 4 months will get labs with endo gets foot exa with endo had dm eye exam in september, due again in september Esophageal varices 21179 008 I85.00 banded had endo/cscop e 03/27 all normal Atrial fibrillation 4943 6004 I48.91 on eliquis Hypercholesterolemia 136 85803 E78.00 on lovastatin will have labs with endo Hypothyroidism 15018630 E03.9 normal in january 2019 Essential hypertension 15651200 I10 well controlled Insomnia 563760473 G47.0 0 using 2-3 times per week not sleeping well having trouble falling asleep lorazepam only helps intermitte ntly sometimes takes tylenol and that helps Body mass index 30+ - obesity 306308876 Z68.34 Active or passive immunization 782413201 Z23 had flu shot due for tdap next year Frontal headache 2127611 05 R51 [id number] [facility] [address] [facility] [address],[place] [address] 11/13/2019 15:00:05 11/13/2019 16:22:05 Type 2 diabetes mellitus 62563230 E11.9 sees endocrinol ogy every 4 months will get labs with endo gets foot exa with endo had dm eye exam in september, due again in september Esophageal varices 17784 008 I85.00 banded had endo/cscop e 03/27 all normal Atrial fibrillation 4943 6004 I48.91 on eliquis Hypercholesterolemia 136 76757 E78.00 on lovastatin will have labs with endo Hypothyroidism 39578473 E03.9 normal in january 2019 labs with endo usually Essential hypertension 49780348 I10 well controlled Insomnia 855410846 G47.0 0 sleeping better very rare need for lorazepam, maybe once a month Body mass index 30+ - obesity 253300614 Z68.34 Nausea 296526598 R11.0 try tums, evaluate diet if sx worsen consider f/u with gi Dizziness 357668882 R42 monitor, very mild Fatigue 22440767 R53.83 will see endo for that as well Vitamin D deficiency 347 40262 E55.9 Edema of l ower extremity 046961113 R60.0 she is on spironolac tone/lasix for liver started by GI seems likely it was related to diet already improving continue to monitor weights daily and call if increasing [id number] TRINO ZARAGOZA [facility] [address] [facility], [place] [address] 02/26/2020 10:48:59 02/26/2020 11:34:18 Nausea and vomiting 90407027 R11.2 patient reports loss of appetite and vomiting for the last week [id number] TRINO ZARAGOZA [facility] [address] [facility], [place] [address] 03/13/2020 15:32:36 03/13/2020 16:22:32 Atrial fibrillation 12128157 I48.91 stable Hepatic encephalopathy 05373952 K72.90 the patient reports brain fog Hepatorenal syndrome 512 71360 K76.7 will check ammonia level in the body and see how it is doing Jaundice 37777863 R17 pt is still jaundiced [id number] TRINO ZARAGOZA [facility] [address] [facility], [place] [address] 06/05/2020 10:38:36 06/05/2020 14:21:19 Hepatic failure 55073234 K72.90 will recheck ammonia level if better can stop the lactulose and just monitor Acid reflux 066744428 K2 1.9 will try taking omeprazole in the morning and see if improvemen t can take two if needed Type 2 luciano betes mellitus 01208180 E11.9 stable per last blood draw [id number] TRINO ZARAGOZA [facility] [address] [facility] [address],[place] [address] 08/25/2020 14:10:45 08/25/2020 14:58:53 Hypercholesterolemia 14339859 E78.00 will check cholestero l Atrial fibrillation 4943 6004 I48.91 stable Essential hypertension 85638070 I10 BP excellent today Type 2 luciano betes mellitus 51474426 E11.9 consulting with cardiology on adjustment s [id number] TRINO ZARAGOZA [facility] [address] [facility],[place] [address] 11/25/2020 13:27:35 11/25/2020 14:57:41 Essential hypertension 78952999 I10 BP excellent today will need to fu with her cardiologi st Atrial fibrillation 4943 6004 I48.91 may be having runs of afib due to the fact her medication Type 2 luciano betes mellitus 30217743 E11.9 consults with endo with A1c measuremen t will need to fu with them for BW Hypothyroidism 25508586 E03.9 will fu with endo tomorrow for lab work Depressive disorder 3548 9007 F32.9 will start on sertraline and fu to see how she is doing [id number] TRINO ZARAGOZA [facility] [address] [facility] [address],[place] [address] 01/04/2021 09:44:57 01/04/2021 10:38:55 Atrial fibrillation 69397400 I48.91 the patient was told by ER that she was having atrial fibrillati on Pain in ri t hip joint 3772971587 90023 M25.551 possible back or hip pain XR lumbar spine normal at specialist told by specialist given liver failure safest thing to take is vicodin or percocet [id number] TRINO ZARAGOZA [facility] [address] [facility] [address],[place] [address] 04/07/2021 15:22:16 04/07/2021 15:56:03 Type 2 diabetes mellitus 29562176 E11.9 consults with endo with A1c measuremen t will need to fu with them for BW Atrial fibrillation 4943 6004 I48.91 the patient was told by ER that she was having atrial fibrillati on Essential hypertension 59761443 I10 BP excellent today will need to fu with her cardiologi st Hepatic failure 88075883 K72.90 will recheck ammonia level if better can stop the lactulose and just monitor Varicose v eins of lower extremity 47985031 I83.893 discussed US duplex for her varicose veins to see the extenttold patient to wear compressio n stockings Intermitte nt claudication 65691031 I73.9 will start with US duplex Steatosis of liver 1007 K76.0 has fu with specialist [id number] TRINO ZARAGOZA [facility] [address] [facility],[place] [address] 07/14/2021 14:36:41 07/14/2021 15:35:20 Hypercholesterolemia 30565569 E78.2 recent check Abdominal mass 997303250 R19.02 will fu with US Type 2 luciano betes mellitus 87010003 E11.9 consults with endo with A1c measuremen t will need to fu with them for BW Steatosis of liver 1007 K76.0 has fu with specialist Atrial fibrillation 4943 6004 I48.0 stable Chronic he patic failure 645507555 K72.10 on transplant list, follows Hepatic encephalopathy 67724630 K72.10 stable on lactulose with recent test [id number] TRINO ZARAGOZA [facility] [address] [facility],[place] [address] 08/18/2021 10:18:23 08/18/2021 12:37:00 Splenic infarction 40500460 D73.5 fu with [facility] vei n thrombosis 18286611 I81 will fu with endo Atrial fibrillation 4943 6004 I48.0 stable Esophageal varices 54981 008 I85.00 has fu with endo to check for bleeds and if switch from Steatosis of liver 1007 K76.0 has fu with specialist as well [id number] Tony Toure DO [facility] [address] [facility] [address],[place] [employer] [place] [address] 10/06/2021 08:14:09 10/06/2021 15:45:49 Type 2 diabetes mellitus 23713421 E11.9 will be rech and get a1c and will be seeing her in november Esophageal varices 08731 008 I85.00 stable but will need to be followed carefully as she is back on eliquis Atrial fibrillation 4943 6004 I48.0 quiet and asymptomat ic Intermitte nt claudication 29631596 I73.9 quiet Chronic he patic failure 987957304 K72.10 still waiting for liver transplant Essential hypertension 23185259 I10 quiet and stable 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 355598695 K72.90 back on lactulose and doing much better reviewed hospitaliz magali in [place] discussion re need to be diligent with meds while waiting for transplant [id number] TRINO ZARAGOZA [facility] [address] [facility] [address] [address] 10/22/2021 08:46:19 10/22/2021 15:45:16 Atrial fibrillation 91349788 I48.0 stable Chronic he patic failure 151383882 K72.10 on transplant list, follows Esophageal varices 23647 008 I85.00 monitoring her bleeding Essential hypertension 26032960 I10 BP excellent today will need to fu with her cardiologi st [id number] Tony Toure DO [facility] [address] [facility] [address] [address] 12/06/2021 14:29:25 12/06/2021 15:01:19 Hypothyroidism 78378541 E03.9 Type 2 luciano betes mellitus 80805724 E11.9 will be rech and get a1c and will be seeing her in november Atrial fibrillation 4943 6004 I48.0 quiet and asymptomat ic Essential hypertension 34849320 I10 quiet and stable Chronic he patic failure 796875975 K72.10 still waiting for liver transplant Fatigue 60544006 R53.83 [id number] TRINO ZARAGOZA [facility] [address] [facility] [address],[place] [address] 01/31/2022 11:18:52 01/31/2022 12:07:22 Pressure ulcer 385613726 L89.899 will start on silvadene cream Candidiasis of skin 4988 3006 B37.2 given topical anti-funga l at home Atrial fibrillation 4943 6004 I48.0 stablestop ping eliquis and starting warfarin from specialist 97383 TRINO ZARAGOZA [facility] [address] [facility],[place] [address] 03/02/2022 11:40:03 03/02/2022 16:36:21 Atrial fibrillation 44403915 I48.0 stable Edema of l ower extremity 915781152 R60.0 will increase lasix to 30 mg and recheck a CMP Gastroesop hageal reflux disease 444335589 K21.9 will fu with omeprazole Cirrhosis of liver 007 K74.02 will recheck her ammonia level [id number] TRINO ZARAGOZA [facility] [address] [facility],[place] [address] 04/01/2022 14:20:42 04/01/2022 15:36:34 Type 2 diabetes mellitus 16425415 E11.9 consults with endo with A1c measuremen t will need to fu with them for BW Essential hypertension 95107354 I10 BP excellent today will need to fu with her cardiologi st Cough 29478747 R05.1 will give tesslon perles for cough Chronic ki dney disease stage 3 452835125 N18.31 will recheck CMP in two weeks after increase of lasix Edema of l ower extremity 100901377 R60.0 will increase lasix to 40mg and recheck a CMP [id number] TRINO ZARAGOZA [facility] [address] [facility],[place] [address] 06/22/2022 13:28:15 06/22/2022 14:25:21 Atrial fibrillation 55766320 I48.0 stableneed s refill warfarin Chronic ki dney disease stage 3 929088875 N18.31 stable Cirrhosis of liver 007 K74.02 stable [id number] TRINO ZARAGOZA [facility] [address] [facility] [address] 07/29/2022 14:42:13 08/01/2022 09:09:56 Vasculitis of the skin 04669454 L95.8 fu in two weeks Internatio nal normalized ratio above reference range 002266357 R79.1 monitor through clinic [id number] TRINO ZARAGOZA [facility] [address] [facility],[place] [address] 10/28/2022 08:24:24 10/28/2022 14:45:46 Atrial fibrillation 54050607 I48.0 stableback on eliquis Hypothyroidism 97271463 E03.8 will f/u with endo tomorrow for lab work Type 2 luciano betes mellitus 07233269 E11.9 consults with endo with A1c measuremen t Essential hypertension 28584704 I10 BP excellent today will need to fu with her cardiologi st Advance care planning 71 6501504 Z71.89 on file Active or passive immunization 924808333 Z23 patient advised she is due for flu shot, tdap & shingles Chronic ki dney disease stage 3 580791532 N18.31 stable Chronic he patic failure 931306398 K72.10 on transplant list, follows Transplant ed liver present 027070613 Z94.4 doing really well [id number] TRINO ZARAGOZA [facility] [address] [facility],[place] [address] 01/25/2023 16:20:44 01/25/2023 17:00:20 Edema of lower extremity 323943072 R60.0 will fu with transplant surgeon 25403 TRINO ZARAGOZA [facility] [address] [facility] [address] [address] 02/07/2023 15:32:41 02/07/2023 17:23:08 Edema of lower extremity 220077170 R60.0 agreed to US venous and US arterial Splenic infarction 25747 003 D73.5 fu with [facility] Chronic ki dney disease stage 3 639197826 N18.31 stable Intermitte nt claudication 40419780 I73.9 will start with US duplex Peripheral venous insufficiency 64317643 I87.2 will set up with both duplex and venous Skin ulcer 71721299 L98. 491 will set up with US arterial and US duplex Transplant ed liver present 659233351 Z94.4 doing really well 80086 TRINO ZARAGOZA [facility] [address] [facility],[place] [address] 05/16/2023 08:00:07 05/16/2023 16:05:24 Portal vein thrombosis 39453001 I81 will fu with endo Splenic infarction 27511 003 D73.5 fu with [facility] Atrial fibrillation 4943 6004 I48.0 stableback on eliquis Essential hypertension 48807040 I10 BP excellent today will need to fu with her cardiologi st Gastroesop hageal reflux disease 369139211 K21.9 will fu with omeprazole Hypercholesterolemia 136 11594 E78.2 recent check Hypothyroidism 05521230 E03.8 fu with endo Intermitte nt claudication 19732435 I73.9 stable Pulmonary hypertension 54312109 I27.0 stable [id number] TRINO ZARAGOZA [facility] [address] [facility] [address] 08/21/2023 15:35:21 08/21/2023 16:41:53 Trigger finger of right hand 5106614459 6087397 M65.311 will set up with ortho Tendinitis of left gluteal tendon 7881377225 98635 M76.02 told her to use a cushion or get a new chair Candidiasis of skin 4964 3006 B37.2 will have her use her nystatin on her left armpit [id number] TRINO ZARAGOZA [facility] [address] [facility] [address] 12/01/2023 14:15:39 12/01/2023 15:28:21 Atrial fibrillation 46636084 I48.0 stableback on eliquis Asthma 736061250 J45.40 needs alt to flovent Essential hypertension 61620653 I10 f/u with her cardiologi st Candidiasis of skin 4911 3006 B37.2 stablewill take over the ketoconazo le cream Lipoma of back 852282131 D17.1 will monitor [id number] TRINO ZARAGOZA [facility] [address] [facility] [address] 02/06/2024 10:59:49 02/06/2024 11:45:50 Depression screening 741595146 Z13.31 stable Acute urin sachin tract infection 442046131 N39.0 will start on amoxicilli n Lesion of liver 22421853 0 K72.10 stable Type 2 luciano betes mellitus 84562819 E11.9 consults with endo with A1c measuremen t Transplant ed liver present 261872635 Z94.4 doing really well Peripheral vascular disease 858555562 I73.9 stable Pulmonary hypertension 09992706 I27.0 stable Chronic ki dney disease stage 3 326090716 N18.31 stable Skin ulcer 54945195 L98. 491 stable [id number] TRINO ZARAGOZA [facility] [address] [facility] [address] 03/12/2024 14:17:11 03/13/2024 09:24:06 Depression screening 813956636 Z13.31 stable Abdominal pain 59247991 R10.10 agreed to US abd and pelviswill r/o any other causes for the upper abdominal and pelvic discomfort s/p surgeryhas not had an imaging since November last year to recheck the area Acute urin sachin tract infection 210079925 N39.0 will set up with a recheck her urine to make sure resolution of the utiagreed to this [id number] TRINO ZARAGOZA [facility] [address] [facility] [address] 06/26/2024 14:17:27 06/26/2024 14:58:48 Chronic kidney disease stage 3 550567067 N18.31 stable Hypothyroidism 89214275 E03.8 f/u with endo in October Type 2 luciano betes mellitus 70666633 E11.9 consults with endo in October325 TRINO ZARAGOZA [facility] [address] [facility],[place] [address] 10/04/2024 14:12:33 10/04/2024 15:06:54 Acute urinary tract infection 573162360 N10 switch out to an alternativ e abx Transplant ed liver present 670898948 Z94.4 elevated creatinine , monitored by her transplant team Palpitations 63936205 R0 0.2 cardio ordered a 2 day [...] [place] Elysia Valle [id number] 4 Elysia Valle 12/01/2023 2 [place] [id number] Elysia Valle [id number] 31 Valle 02/06/2024 1 [place] Elysia Valle [id number] 4 Valle 02/06/2024 2 [place] [id number] Elysia Valle [id number] 31 Elysia Valle 03/12/2024 1 [place] Elysia Valle [id number] 4 Elysia Valle 03/12/2024 2 [place] [id number] Elysia Valle [id number] 31 Elysia Valle 06/26/2024 1 [place] Elysia Valle [id number] 4 Elysia Valle 06/26/2024 2 [place] [id number] Elysia Valle [id number] 31 Valle 10/04/2024 1 [place] Elysia Valle [id number] 4 Valle 10/04/2024 2 [place] [id number] Elysia Trevizo Valle [id number] 31 Notes Date Note Type Note Provider Name a nd Address Organization Details Recorded Time 4 text/html medication check atrial fibrillation: stable, no issues asthma: needs to switch out to asmanex from flovent which is not covered anymore anxiety/insomnia: hasn't needed the xanax as much, sleeping and anxiety has been stable HTN: stable will take over ketoconazole from [facility] TRINO ZARAGOZA [address] [place], [address], [facility] 12/01/2023 15:10:13 4 text/html c/o [...] chrondritiswill give her lidocaine TRINO ZARAGOZA [address] [place], [address], [facility] 02/06/2024 11:36:35 4 text/html 3 [...] to make sure resolution TRINO ZARAGOZA [address] [place], [address], [facility] 03/12/2024 14:54:00 4 text/html 3 [...] ankle swelling, orthopnea, palpitations TRINO ZARAGOZA [address] [place], [address], [facility] 06/26/2024 14:43:04 5 text/html 3 [...] her levels through transplant TRINO ZARAGOZA [address] [place], [address], [facility] 10/04/2024 14:50:19 OBGyn Episode No OBEpisode recorded.
--- OUTSIDE RECORDS SUMMARY | 2024-11-18 17:21 | XMS_ITS | Clinical Summary ---
Author Organization [facility], Address [address] [place] [address] [place] [address] Phone Care Team Providers Care Process Control Engineer Name Role Phone Patti Bell PA-C Primary Care Provider [phone] Allergies Active Allergy Reactions Criticality Noted Date Comments Amoxicillin-Pot Clavulanate 04/18/20 22 Lisinopril 03/18/2020 Metoclopramide Swelling Medium 06/23/2017 Rosuvastatin Swelling 02/08/2023 Tramadol Swelling Medium 06/23/2017 Medications Flovent Diskus 250 MCG/BLIST diskus inhaler INHALE 1 PUFF TWICE A DAY BY FOR 90 DAYS. 0 Active furosemide (LASIX) 20 MG tablet Take 20 mg by mouth 2 (two) times a day Active insulin lispro (HumaLOG) 100 UNIT/ML injection Humalog KwikPen Insulin Sliding scale Active insulin glargine (Lantus SoloStar) 100 UNIT/ML injection Lantus Solostar U-100 Insulin 100 unit/mL (3 mL) subcutaneous pen Active LORazepam (ATIVAN) 0.5 MG tablet Take 0.5 mg by mouth daily Active lovastatin (MEVACOR) 40 MG tablet Take 40 mg by mouth daily 8 Active meclizine (ANTIVERT) 25 MG tablet Take 25 mg by mouth 1 (one) time each day if needed Active metFORMIN (GLUCOPHAGE) 500 MG tablet Take 500 mg by mouth 1 (one) time each day with breakfast 0 Active omeprazole (PriLOSEC) [address] capsule Take 40 mg by mouth daily 0 Active ondansetron ODT (ZOFRAN-ODT) 4 MG dispersible tablet Take 4 mg by mouth 1 (one) time each day if needed Active spironolactone (ALDACTONE) 100 MG tablet Take 100 mg by mouth daily Active ferrous sulfate 325 (65 Fe) MG tablet Take 1 tablet by mouth twice a day as directed 0 Active Dulaglutide (Trulicity) 1.5 MG/0.5ML solution pen-injector Trulicity 1.5 mg/0.5 mL subcutaneous pen injector 8 Active Lactulose 20 GM/30ML solution 15 mL 2 (two) times a day Active clotrimazole-bet amethasone (LOTRISONE) cream clotrimazole-bet amethasone 1 %-0.05 % topical cream APPLY TO AFFECTED AREA TWICE A DAY IN THE MORNING AND IN THE EVENING FOR 2 WEEKS Active cholecalciferol (VITAMIN D-3) 25 MCG (1000 UT) capsule Vitamin D3 25 mcg (1,000 unit) capsule TAKE 1 CAPSULE BY MOUTH EVERY MORNING. Active cycloSPORINE (RESTASIS) 0.05 % ophthalmic emulsion Restasis 0.05 % eye drops in a dropperette Active levothyroxine (SYNTHROID, LEVOTHROID) 112 MCG tablet Synthroid 112 mcg tablet Active metoprolol succinate XL (TOPROL XL) 25 MG 24 hr tablet Take 25 mg by mouth 1 (one) time each day Active nystatin (MYCOSTATIN) cream nystatin 100,000 unit/gram topical cream Active silver sulfADIAZINE (SILVADENE, SSD) 1 % cream silver sulfadiazine 1 % topical cream APPLY A 1/16 INCH (1.5 MM) THICK LAYER TO ENTIRE BURN AREA BY TOPICAL ROUTE 2 TIMES PER DAY Active rifAXIMin (XIFAXAN) 550 MG tablet Xifaxan 550 mg tablet Active warfarin (COUMADIN) 2 MG tablet warfarin 2 mg tablet Active magnesium oxide 400 (240 Mg) MG tablet Take 2 tablets by mouth 3 (three) times a day 2 Active fluticasone (Flovent Diskus) 250 MCG/BLIST diskus inhaler Flovent Diskus 250 mcg/actuation powder for inhalation TAKE 1 PUFF BY MOUTH TWICE A DAY Active Active Problems Problem Noted Date Diagnosed Date Transplanted liver present 10/28/2022 Stage 3a chronic kidney disease 04/19/2022 Hypomagnesemia 07/17/2018 Adrenal adenoma 12/05/2017 Overview (02/08/2023): Last Assessment & Plan: Bilateral Adrenal adenoma. Given size, I reviewed the recommendations for additional work up including a CT adrenal mass protocol and plasma free metanephrines, aldosterone and plasma renin activity. Dexamethasone suppression test also indicated though it is challenging to order this given the distance she travels to the appointment. I will start with the other tests for now. Last Assessment & Plan: Bilateral Adrenal adenoma. Given size, I reviewed the recommendations for additional work up including a CT adrenal mass protocol and plasma free metanephrines, aldosterone and plasma renin activity. Dexamethasone suppression test also indicated though it is challenging to order this given the distance she travels to the appointment. I will start with the other tests for now. Last Assessment & Plan: Uncertain if this was known/addressed previously, or found in evaluation for transplant, await records. Essential hypertension 12/05/2017 Hypercholesterolemia 12/05/2017 Pulmonary hypertension 12/05/2017 Type 2 diabetes mellitus 12/05/2017 Overview (02/08/2023): Last Assessment & Plan: Control poor. Tending to drop overnight, ? Due to taking prandial insulin @ hs when high vs dose of basal insulin too high. Advised caution w/ taking humalog @ night & to cut back to 10-15 units when BG very high. Going very high after meals, advised to increase dose of humalog by 4 units with meals. Nona in [place] had advised restarting low dose trulicity. She has some 3 mg doses left. Cautioned against starting at high dose. Can check w/ [facility] to see if can obtain 0.75 mg strength vs check w/ insurance @ cost/coverage of trulicity vs other GLP1 agonists. Continue to work on eating healthy & keeping active, as able. To call or send in BG with problems with glycemic control. Up to date with ophtho. Follows with podiatry. Will check HbA1c with labs when has repeat TFTs. To call if hasn't heard from us within 1-2 weeks. Last Assessment & Plan: Following w/ renal. BP reasonable. Immunizations Name Administration Dates Next Due Hep B, Unspecified 07/02/2021,07/02/2021 Hepatitis B 06/15/2018 Influenza, MDCK, PF, Quadrivalent 06/21/2019 Influenza, MDCK, Quadrivalent, with preservative 06/15/2018 Influenza, Quadrivalent, With Preservative 07/01 Moderna SARS-COV-2 12/23/2020,12/02/2020 Pfizer SARS-COV-2 07/02/2021 Tdap 09/21/2010 Social History Tobacco Use Types Packs/Day Years Used Date Smoking Tobacco: Never Assessed Comments Unknown Sex and Gender Information Value Date Recorded Sex Assigned at Not on file Legal Sex Female 12:05 PM EDT Gender Identity Not on file Sexual Orientation Not on file Last Filed Vital Signs Vital Sign Reading Time Taken Comments Blood Pressure 100/52 06/28/2022 2:18 PM EDT Pulse 68 06/28/2022 2:18 PM EDT Temperature - - Respiratory Rate 14 06/28/2022 2:18 PM EDT Oxygen Saturation - - Inhaled Oxygen Concentration - - Weight 103 kg (226 lb) 06/28/2022 2:18 PM EDT Height 170.2 cm (5' 7 ) 06/28/2022 2:18 PM EDT Body Mass Index 35.4 06/28/2022 2:18 PM EDT Plan of Treatment Health Maintenance Due Date Last Done Comments Breast Cancer Screening 1960 Pneumococcal Vaccine: 65+ Years (1 of 2 - PCV) 1965 Pneumococcal Vaccine: Pediatrics (0 to 5 Years) and At-Risk Patients (6 to 64 Years) (1 of 2 - PCV) 1965 Colorectal Cancer Screening: Annual FOBT 2008 Colorectal Cancer Screening: Colonoscopy 2008 Colorectal Cancer Screening: Sigmoidoscopy 2008 Diabetes: Hemoglobin A1C 03/18/2020 Diabetes: Ophthalmology Exam 03/18/2020 Diabetes: Pedal Pulse Checked 03/18/2020 Diabetes: Sensory Foot Exam 03/18/2020 Diabetes: Visual Foot Exam 03/18/2020 Influenza Vaccine (#1) 2024 , 06/21/2019, 06/15/2018 Hepatitis B Vaccine Aged Out 07/02/2021, 07/02/2021, 06/15/2018 No longer eligible based on patient's age to complete this topic Insurance [facility] MEDICARE Care Teams Process Control Engineer Relationship Specialty Start Date End Date Patti Bell PA-C [address] [place] [address] PCP - General Physician Auto Driver 03/12/20
--- OUTSIDE RECORDS SUMMARY | 2024-11-18 17:21 | XMS_ITS ---
Author Organization [facility] Address [address] [facility] [place] [address] Care Team Providers Care Ambulance Paramedic Name Role Phone Tony Toure MD Primary Care Provider Munira Heller [phone] REASON FOR VISIT same day cx 10/30/24 Encounters Encounter Location Date Provider Diagnosis [address] [address] 10/30/2024 Munira Crews Plan Of Treatment Next Appt Details Provider Name:Munira moraes, 01/29/2025 01:30:00 PM, [address] [place], [address], Progress Notes * Elysia VALLEDOB:1960 (64 yo F)Acc No.[id number]:10/30/2024 Patient:?VALLEElysia COTTON :1960???Age:64 Y???Sex:Female Address:[address] [facility] [place], [address] * true * Date:? Generated for Irma romo/Virgie/eTransmitting on:?11/18/2024 05:20 PM EST
--- OUTSIDE RECORDS SUMMARY | 2024-11-18 17:21 | XMS_ITS | Encounter Summary ---
Author Organization [facility], Address [address] [place] [address] Phone Care Team Providers Care Public Administration Teacher Name Role Phone Patti Bell PA-C Primary Care Provider [phone] Encounter Details Date Type Department Care Team (Late st Contact Info) Description 03/26/2020 Orders Only [facility] [address] [facility] [address] [place] [id number] Ada Marie MD Chronic kidney disease, stage 3 (moderate) (HCC) Social History Tobacco Use Types Packs/Day Years Used Date Smoking Tobacco: Never Assessed Comments Unknown Sex and Gender Information Value Date Recorded Sex Assigned at Not on file Legal Sex Female 12:05 PM EDT Gender Identity Not on file Sexual Orientation Not on file documented as of this encounter Plan of Treatment Not on file documented as of this encounter Procedures Procedure Name Priority Date/Time Associated Diagnosis Comments US RENAL COMPLETE Routine 04/22/2020 3: 29 PM EDT Chronic kidney disease, stage 3 (moderate) (HCC) documented in this encounter Results * Ultrasound renal complete (04/22/2020 3:29 PM EDT) Anatomical Region Laterality Modality Body Ultrasound Result [facility] Ada Marie MD [facility] [place]EDURES Final Result documented in this encounter Visit Diagnoses Diagnosis Chronic kidney disease, stage 3 (moderate) documented in this encounter Care Teams Public Administration Teacher Relationship Specialty Start Date End Date Patti Bell PA-C [address] [facility] [place] [address] PCP - General Physician Corporate Trainer 03/12/20 documented as of this encounter
== END ==
LOC: HO.CARD 14:59
PROVIDERS: PCP Internal Medicine; Visit Provider Internal Medicine Cardiovascular Disease
DX: I48.19 Other persistent atrial fibrillation (principal)
CPT/HCPCS: 93306; Q9957

== ENCOUNTER → 2024-11-18 15:02 | Outpatient (BNV) | payer MEDICARE, SELFPAY | PROVIDERS: PCP Internal Medicine; Visit Provider Internal Medicine | DX: I35.8 Other nonrheumatic aortic valve disorders (principal); I48.91 Unspecified atrial fibrillation | CPT/HCPCS: 93306 ==

== ENCOUNTER 2025-03-11 14:26 | Outpatient (AMB) | payer MEDICARE, SELFPAY ==
--- NOTE | 2025-03-11 14:27 | MHC.OFFVIS ---
Vital Signs 03/11/25 14:28 Height 5 ft 7 in Weight 213 lb 13.574 oz BMI 33.5 BP 120/76 Blood Pressure Location Lt brachial Position Sitting Pulse 90 Intake Visit Reasons: 1 yr follow up Intake Note: 1 year follow-up with ekg lower dig is better per goes about 6-7 good days then and bad day Glove Cutter Required: No Flexible Machining System Machinist: Flexible Machining System Machinist Present Accompanied by: Spouse Allergies metoclopramide [From REGLAN] Allergy (Unknown, Verified 10/24/23 13:21) SWELLING tramadol [TRAMADOL] Allergy (Unknown, Verified 10/24/23 13:21) SWELLING From AUGMENTIN Allergy (Mild, Uncoded 07/28/22 13:59) COUGHING, LOW BP\ Medication List - Last Reconciled 03/11/25 by Esequiel Bach MD acetaminophen 650 mg PO Q4H PRN alprazolam 0.5 mg PO DAILY PRN apixaban (Eliquis) 5 mg PO BID clotrimazole-betamethasone 1-0.05 % 1 appl topical BID PRN cyclosporine 0.05% (Restasis) 1 drp ophthalmic (eye) Q12H digoxin 62.5 mcg PO DAILY ergocalciferol (vitamin D2) 1,250 mcg PO QWEEK ferrous sulfate 325 mg PO BID 90 days fluticasone propionate 250 mcg/actuation 1 inh inhalation BEDTIME insulin glargine 50 units subcut BEDTIME insulin lispro (Humalog KwikPen (U-100) Insulin) See Protocol sliding scale doses subcut TIDAC levothyroxine (Synthroid) 137 mcg PO DAILY lovastatin 40 mg PO BEDTIME magnesium oxide 400 mg PO ONCE metoprolol succinate ER 100 mg PO Q12H 90 days mycophenolate mofetil 750 mg PO BID nystatin 1 appl topical BID pantoprazole 40 mg PO DAILY silver sulfadiazine 1% appl topical BID tacrolimus 1 mg PO Q12H torsemide 40 mg PO ONCE triamterene-hydrochlorothiazid 37.5-25 mg 1 cap PO QAM HPI Comments Details: Elysia comes for follow-up. She says heart rate is much better control on low-dose digoxin therapy. She has not had any digoxin assay done. She had seen electrophysiology and they are recommending for her to pursue pulmonary vein isolation procedure to control rhythm. 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 She has no clear heart failure symptoms at this point time. 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 She has advancing chronic kidney disease as well as underlying liver transplant on immunosuppressive therapy. She has had no hospitalization for heart failure. Currently taking her diuretic regimen. Denies orthopnea, PND, leg edema. [facility] Medical History Portal hypertension PAC (premature atrial contraction) Iron deficiency anemia Esophageal varices without bleeding Cirrhosis of liver with ascites History of colonic polyps GERD (gastroesophageal reflux disease) Paroxysmal atrial fibrillation Hypertension Hyperlipidemia Type 2 diabetes mellitus Asthma Thyroid disease Shingles Obesity (BMI 35.0-39.9 without comorbidity) Surgical History Status post surgical removal of pilonidal cyst (~1979) History of partial hysterectomy (~1998) Hx of endoscopy Hx of colonoscopy Family History Father No problems noted. Mother No problems noted. Paternal Grandmother Colon cancer Social History Household Members: Spouse Housing: House Do you presently have visiting nurse or other home services: No Alcohol intake: former Patient Tobacco Use Status: Never used Tobacco service: No Current occupational status: disabled Current occupational exposures/hazards: No Review of Systems Const Denies chills, Denies fatigue, Denies fever(s), Denies frequent falls, Denies weakness, Denies weight gain and Denies weight loss ENT Denies dizziness Card Denies chest pain, Denies leg edema, Denies lightheadedness, Denies palpitations, Denies dyspnea, Denies dyspnea on exertion, Denies orthopnea and Denies other (loss of consciousness) Resp Denies cough, Denies dyspnea and Denies dyspnea on exertion GI Denies hematochezia and Denies change in stool character Musc Denies abnormal gait, Denies muscle weakness, Denies numbness, Denies radiating pain into limb and Denies tingling Neuro Denies abnormal gait, Denies dizziness, Denies frequent falls, Denies numbness, Denies tingling and Denies weakness Endo Denies fatigue and Denies palpitations Physical Exam Vital Signs: Last Vital Signs Pulse 90 03/11/25 14:28 BP 120/76 03/11/25 14:28 BMI result Body Mass Index 33.5 Const General: cooperative, comfortable, alert, awake and anxious Nutritional Appearance: obese Orientation/consciousness: patient oriented x3 Limitations: no limitations Neck Neck: Yes trachea midline, Yes supple and Yes no JVD Chest Chest palpation & inspection: normal inspection of the chest Resp Effort & Inspection: normal respiratory effort Auscultation: clear to auscultation bilaterally Cardio Jugular venous distension: no JVD Palpation: normal PMI Rate: regular rate Rhythm: abnormal rhythm irregularly irregular Heart sounds: S1 normal heart sound present, S2 normal heart sound present, no click, no gallops and no murmurs Skin General skin exam: no rashes or lesions noted Neuro General: patient oriented x3 and no focal motor deficits Extrem General: Yes no clubbing, cyanosis or edema Psych Appearance: grossly normal Affect: Anxious affect present Office Procedures EKG Details: EKG shows atrial fibrillation with left anterior fascicular block with poor R-wave progression [id number], Complete Assessment & Plan Assessment & Plan (1) Chronic atrial fibrillation: Code(s): I48.20 - Chronic atrial fibrillation, unspecified Category: Medical Plan: Chronic persistent atrial fibrillation this elderly woman with multiple comorbidities including renal insufficiency, liver transplant on immunosuppressive therapy, hypertension, diabetes with difficult control rate. Currently on dual therapy with metoprolol and digoxin she has been able to maintain adequate rate with better control of heart rate. She has no heart failure symptoms. Will obtain digoxin assay today. She has had history of digoxin toxicity in the past. Currently on full oral anticoagulation Eliquis. Continue monitor renal function closely. Consider renal consultation. Continue aggressive blood pressure control which is currently well optimized. Overall I think she is doing currently well with rate control. I am not sure if she will be able to maintain rhythm with pulmonary vein isolation only given her longstanding atrial fibrillation although her left atrial size appears to be acceptable. Will follow up in the clinic in 6 months time, sooner p.r.n.. Thank you for allowing me to partake in her care Orders: Orders Digoxin Today I48.20 - Chronic atrial fibrillation, unspecified Coding Level of Care Code Est Pt Level 4 (69823) Complex EM visit Add On G2211 Diagnoses Chronic atrial fibrillation I48.20 CPT Codes EKG - CPT: 78899-[id number], Complete ([id number])
[2025-03-11 14:28] VITALS: BP 120/76; PULSE 90; BMI 33.5
--- OUTSIDE RECORDS SUMMARY | 2025-03-11 16:44 | XMS_ITS | Data Portability ---
Author Organization [facility], Telehealth Patient Home Address [address] [place] [address] Assessment No assessment recorded. Plan of Treatment Reminders Order Date Submit Date Provider Last Modified By Organization Details Last Modified Time Details Appointments FOLLOW UP 15 2024 02:15P TRINO HOPKINS Not available Not available Not available Lab urinalysi s complete, reflex culture 2023 024 [facility] Draw [facility], [facility] [address], [place], [address], 04/22/2024 11:47:21 urinalysi s, dipstick 2023 024 [facility] Internal Medicine, [address] [place] [address], [facility] D, [place], [address], 02/06/2024 11:38:42 culture, urine 2023 024 [facility] Draw Station, [facility] [address] [place], [address], 02/07/2024 11:24:53 Referral None recorded. Procedures None recorded. Surgeries None recorded. Imaging US, abdomen + pelvis 2023 024 [email or web address] [facility] (Imaging), [address] [place] [address], [address], 03/13/2024 09:24:06 Medication Orders ondansetr on HCl 4 mg tablet 2024 025 [facility] #[id number], [address] [place], [address], 01/20/2025 14:38:58 Bactrim DS 800 mg-160 mg tablet 2024 025 [facility] #[id number], [address] [place], [address], 10/04/2024 14:41:08 amoxicill in 875 mg tablet 2023 024 [facility] #[id number], [address] [place], [address], 06/26/2024 14:18:58 Patient TargetsNo targets recorded. Patient InstructionsNo instructions recorded. Reason for Referral None Reported. Results Created Date Observation Date Name Description Value Unit Range Abnormal Flag Note LastModifiedBy Organization Detail LastModifiedTime Result Notes None recorded. Problems Name Problem SNOMED Code Status Onset Date Resolution Date Notes Provider Name and Address Organization Details Recorded Time Splenic infarcti on 47844255 Active 2021 Not Available [facility] 2 17:56:09 Portal vein thrombos is 01073349 Active 2021 Not Available [facility] 2 17:56:09 Pressure ulcer Active 2021 Not Available [facility] 2 17:56:09 Edema of lower extremit y 501156627 Active 2021 Not Available [facility] 2 17:56:09 Gastroes ophageal reflux disease 327044894 Active 2021 Not Available [facility] 2 17:56:09 Type 2 diabetes mellitus 83463377 Active 2017 Not Available [facility] 2 17:56:09 Hypothyr oidism 10686255 Active 2017 Not Available [facility] 2 17:56:09 Hypercho lesterol emia 17018475 Active 2017 Not Available [facility] 2 17:56:09 Acid reflux 349808678 Active 2017 Not Available [facility] 2 17:56:09 [facility] hyperten eric 96958003 Active 2017 Not Available [facility] 2 17:56:09 Pulmonar y hyperten eric 64265596 Active 2017 Not Available [facility] 2 17:56:09 Sarcoido sis 15314298 Active 2017 Dr. Kiera Reed Not Available [facility] 2 17:56:09 Atrial fibrilla tion 27844751 Active 2017 Not Available [facility] 2 17:56:09 Esophage al varices 09709857 Active 2017 Not Available [facility] 2 17:56:09 Adrenal adenoma 948065594 Active 2017 Not Available [facility] 2 17:56:09 Steatoti c liver disease 889733295 Active 2017 Not Available [facility] 2 17:56:09 Chronic kidney disease stage 3 702090297 Active 2021 Not Available [facility] 2 17:56:09 Vasculit is of the skin 63034960 Active 2021 Not Available [facility] 2 17:56:09 Transpla nted liver present 809132168 Active 2022 TRINO ZARAGOZA [address] [place], [address], [facility] 3 14:21:59 Intermit tent claudica tion 84584671 Active 2022 TRINO ZARAGOZA [address] [place], [address], [facility] 3 16:01:13 Peripher al venous insuffic iency 73757414 Active 2022 TRINO ZARAGOZA [address] [place], [address], [facility] 3 16:01:43 Skin ulcer 56191771 Active 2022 TRINO ZARAGOZA [address] [place], [address], [facility] 3 16:04:37 Transpla ntation of liver Active 2022 TRINO ZARAGOZA [address] [place] [address], [address], [facility] 3 16:07:06 Insomnia 190900700 Active 2022 TRINO ZARAGOZA [address] [place], [address], [facility] 3 14:53:51 Trigger finger of right hand 73575666174 469951 Active 2022 TRINO ZARAGOZA [address] [place] [address], [address], [facility] 3 16:07:03 Tendinit is of left gluteal tendon 61415728291 9108 Active 2022 TRINO ZARAGOZA [address] [place] [address], [address], [facility] 3 16:10:56 Candidia sis of skin 05980936 Active 2022 TRINO ZARAGOZA [address] [place] [address], [address], [facility] 3 16:21:15 Asthma 574522712 Active 2023 TRINO ZARAGOZA [address] [place] [address], [address], [facility] 4 14:52:04 Lipoma of back 136479461 Active 2023 TRINO ZARAGOZA [address] [place] [address], [address], [facility] 4 15:09:55 Peripher al vascular disease 977689768 Active 2023 TRINO ZARAGOZA [address] [place] [address], [address], [facility] 4 11:21:48 Acute urinary tract infectio n 810180349 Active 2023 TRINO ZARAGOZA [address] [place] [address], [address], [facility] 4 11:22:05 Lesion of liver 332119836 Active 2023 TRINO ZARAGOZA [address] [place] [address], [address], [facility] 4 11:26:53 Abdomina l pain 13723566 Active 2023 TRINO ZARAGOZA [address] [place] [address], , [facility] 4 14:39:40 Palpitat ions 01182174 Active 2024 TRINO ZARAGOZA [address] [place] [address], , [facility] 5 14:42:29 Nausea 969040097 Active 2024 TRINO ZARAGOZA [address] [place] [address], [address], [facility] 5 14:38:52 Typical atrial flutter 039268869 Active 2024 RTINO ZARAGOZA [address] [place] [address], [address], [facility] 5 14:45:06 Notes:Some problems listed i n Documents: #[id number], #[id number] could not be added to this patient's chart. Please review these documents and add these problems to the patient's chart manually as needed. Problem Notes None recorded. Procedures Surgical History Date Name Laterality Status Provider Name and Address Organization Details Recorded Time 03/04/20 19 I&D completed Marina BASILIA Martino [address] [place] [address], [address], [facility] 03/04/2019 14:43:51 02/23/20 19 I&D completed Marina BASILIA Martino [address] [place] [address], [address], [facility] 02/22/2019 15:12:47 Partial Hysterectomy completed Neva Strong NP, [address] [facility], [place], [address], [facility] 06/22/2018 15:38:16 Imaging Results None recorded. Procedure Notes None recorded. Medical Equipment None Reported. Allergies Allergen ID Allergen Name Allergen Category Reaction Reaction Severity Criticality Documentation Date Start Date Code Code System Note Provider Name and Address Organization Details Recorded Time 481 lisinopri l medicatio n Not available Not available Not available 12/05/2017 80343 RxNorm Seble [facility] 8 11:41:04 482 Augmentin medicatio n Not available Not available Not available 12/05/2017 45150 2 RxNorm Marina Martino LAURELCRIS [address] [place], [address], [facility] 9 16:14:00 486 tramadol medicatio n Not available Not available Not available 12/05/2017 66184 RxNorm Seble [facility] 8 12:05:04 488 Reglan medicatio n Not available Not available Not available 12/05/2017 9230 RxNorm Seble [facility] 8 12:05:35 Medications Name Sig Start Date Stop Date Status Note LastModified by Organization Details LastModified Time carisoprodo l 350 mg tablet Take 1 tablet every day by oral route at bedtime. 07/17 completed Not Available Not Available Not Available amoxicillin 500 mg capsule Take 1 capsule 3 times a day by oral route for 7 days. 10/04 completed Not Available Not Available Not [...] HCl 4 mg tablet TAKE 1 TABLET EVERY 4-6 HOURS BY ORAL ROUTE NEEDED FOR 90 DAYS. active Not Available Not Available No t [...] TAKE 1 TABLET BY MOUTH EVERY DAY 01/20 completed Not Available Not Available Not Available [...] completed Not Available Not Available Not Available fluticasone propionate 250 mcg/actuati on blister powder for inhalation TAKE 1 PUFF BY MOUTH TWICE A DAY 11/30 completed Not Available Not Available Not Available doxycycline hyclate 100 mg tablet Take 1 tablet twice a day by oral route for 7 days. 03/13 completed Not Available Not Available Not Available spironolact one 50 mg tablet Take 1 tablet every day by oral route for 90 days. 08/18 completed Not Available Not Available Not Available amoxicillin 875 mg-potassiu m clavulanate 125 mg tablet TAKE 1 TABLET (875 MG TOTAL) BY MOUTH 2 TIMES A DAY FOR 2 DAYS. active Not Available Not Available No t Available oxycodone 5 mg tablet PLEASE SEE [...] Not Available Not Available No t Available GaviLyte-N 420 gram oral solution 06/22 completed Not Available Not Available Not Available GaviLyte-G 236 gram-22.74 gram-6.74 gram-5.86 gram oral solution PLEASE SEE ATTACHED FOR DETAILED DIRECTION S active Not Available Not Available No t Available OneTouch Delica Lancets 33 gauge USE [...] Not Available Not Available Not Available digoxin 62.5 mcg (0.0625 mg) tablet TAKE 1 TABLET BY MOUTH DAILY active Not Available Not Available No t Available Jardiance 10 mg tablet 11/13 completed [...] completed Not Available Not Available Not Available Mounjaro 5 mg/0.5 mL subcutaneou s pen injector INJECT 0.5 ML (5 MG TOTAL) UNDER THE SKIN ONCE A WEEK. START AFTER 4 DOSES OF 2.5 MG IF TOLERATED active Not Available Not Available No t Available Mounjaro 2.5 mg/0.5 mL subcutaneou s pen injector INJECT 2.5 MG UNDER THE SKIN ONCE A WEEK FOR 28 DAYS. active Not Available Not Available No t Available Vitals Date Recorded Body height Heart rate Oxygen saturation Oxygen saturation in Arterial blood by Pulse oximetry Systolic blood pressure Diastolic blood pressure Provider Name and Address Organization Details Last Updated DateTime 5 171.45 cm 132 /min 88 % 88 % 124 mm[Hg] 80 mm[Hg] Mayra Narayanan MA [facility] 5 14:36:29 Date Recorded Body height Body mass index (BMI) Body weight Heart rate Oxygen saturation Oxygen saturation in Arterial blood by Pulse oximetry Systolic blood pressure Diastolic blood pressure Provider Name and Address Organization Details Last Updated DateTime 5 171.45 cm 34 kg/m2 59403.6 8 g 38 /min 96 % 96 % 148 mm[Hg] 82 mm[Hg] Mayra Narayanan [facility] 5 14:26:53 Date Recorded Body height Body mass index (BMI) Body weight Heart rate Oxygen saturation Oxygen saturation in Arterial blood by Pulse oximetry Systolic blood pressure Diastolic blood pressure Provider Name and Address Organization Details Last Updated DateTime 4 171.45 cm 33 kg/m2 85624.3 3 g 111 /min 97 % 97 % 128 mm[Hg] 86 mm[Hg] Mayra Narayanan [facility] 4 11:05:14 Date Recorded Body height Body mass index (BMI) Body weight Heart rate Oxygen saturation Oxygen saturation in Arterial blood by Pulse oximetry Systolic blood pressure Diastolic blood pressure Provider Name and Address Organization Details Last Updated DateTime 4 171.45 cm 32.9 kg/m2 76024.1 7 g 114 /min 96 % 96 % 130 mm[Hg] 72 mm[Hg] Bekah Hart [facility] 4 14:24:08 Date Recorded Body height Body mass index (BMI) Body weight Heart rate Oxygen saturation Oxygen saturation in Arterial blood by Pulse oximetry Systolic blood pressure Diastolic blood pressure Provider Name and Address Organization Details Last Updated DateTime 4 171.45 cm 34.5 kg/m2 558822. 54 g 121 /min 99 % 99 % 128 mm[Hg] 84 mm[Hg] Mayra Narayanan [facility] 4 14:26:54 Social History Question Answer Notes LastModified by Organizat ion Details LastModified Time Tobacco Smoking Status Former Smoker Seble [email or web address] [facility] 01/22/2018 09:03:51 What Was The Date Of Your Most Recent Tobacco Screening? 01/20/2025 [email or web address] Information not available 01/20/2025 Sex: Unknown Functional Status Question Answer Note LastModified by Organization D etails LastModified Time Do you or have you ever used any other forms of tobacco or nicotine? No [email or web address] Information not available 12/06/2021 Mental Status None recorded. Family History Nothing [...] 50 mcg/0.25mL dose 1 completed Not Available [facility] 10/27/2023 13:24:45 COVID-19, mRNA, LNP-S, PF, 100 mcg/0.5mL dose or 50 mcg/0.25mL dose 1 completed Not Available [facility] 10/27/2023 13:24:45 Tdap 0 completed Not Available [facility] 10/27/2023 13:24:45 COVID-19, mRNA, LNP-S, PF, 30 mcg/0.3 mL dose 1 completed Not Available [facility] 10/27/2023 13:24:45 Hep B, unspecified formulation 1 completed Not Available [facility] 10/27/2023 13:24:45 Influenza, split virus, quadrivalent, preservative 1 completed Not Available [facility] 10/27/2023 13:24:45 Past Encounters Encounter ID Performer Location Encounter Start Date Encounter Closed Date Diagnosis/Indication Diagnosis SNOMED-CT Code Diagnosis ICD10 Code Diagnosis Note [id number] DO Peter Florez [facility] [address] [facility],[place] [address] 01/22/2018 08:53:35 01/22/2018 10:08:56 Calcific tendinitis of shoulder 61367772 M75.31 Insulin tr eated type 2 diabetes mellitus 397692239 Z79.4 stable, follow Shoulder joint pain 2679 79969 M25.519 Essential hypertension 83716614 I10 stable [id number] Tony Toure [facility] [address] [facility],[place] [facility] [address] 02/14/2018 09:02:06 02/16/2018 09:30:37 Tick bite 25813095 S30.861A Paroxysmal atrial fibrillation 691425337 I48.0 stable with eliquis, flecainide await appt in [facility] keep appt next week with DR. Bach be seen urgently if A-fib recurs and is persistant Type 2 luciano betes mellitus 72968293 E11.9 follow Essential hypertension 94656244 I10 well controlled [id number] Tony Toure [facility] [address] [facility],[place] [address] 04/13/2018 09:00:10 04/13/2018 09:44:20 Hypomagnesemia 813326570 E83.42 Type 2 luciano betes mellitus 02076769 E11.9 follow Paroxysmal atrial fibrillation 202076690 I48.0 stable Hypothyroidism 20220869 E03.9 Essential hypertension 83677858 I10 well controlled Hypercholesterolemia 136 36454 E78.00 [id number] Tnoy Toure [facility] Internal Medicine [address] [facility],[place] [facility] [address] 05/15/2018 11:42:51 05/15/2018 12:22:09 Esophageal varices 60836053 I85.00 recent banding Atrial fibrillation 4943 6004 I48.91 on eliquis Essential hypertension 42478317 I10 well controlled Dehydration 92651776 E86 .0 resolved in [facility] [id number] Tony Toure [facility] Internal Medicine [address] [facility] [address] 06/22/2018 14:59:39 06/22/2018 16:24:53 Chronic pelvic pain of female 834288598 R10.2 Esophageal varices 31874 008 I85.00 scheduled for third banding next week Type 2 luciano betes mellitus 14423965 E11.9 A1C 7.6 [id number] Tony Toure [facility] [address] [facility],[place] [address] 07/17/2018 09:12:56 07/20/2018 08:36:51 Hypercholesterolemia 46878738 E78.00 Esophageal varices 39524 008 I85.00 banding last week with f/u in 2 weeks Hypothyroidism 91848233 E03.9 Type 2 luciano betes mellitus 81574644 E11.9 A1C 7.6 Essential hypertension 70540680 I10 well controlled Hypomagnesemia 674394192 E83.42 Acute cystitis 64687095 N30.00 [id number] Tony Toure [facility] Internal [facility] [address] [facility],[place] [address] 08/03/2018 14:20:10 08/03/2018 15:49:59 Hypomagnesemia 129535876 E83.42 Doing labs today after visit Esophageal varices 78232 008 I85.00 3 bands 07/25- follow Atrial fibrillation 4943 6004 I48.91 on eliquis Essential hypertension 11029794 I10 well controlled , continue off olmesartan [id number] Tony Toure [facility] [address] [facility],[place] [address] 09/11/2018 15:42:46 09/14/2018 11:18:25 Acute cystitis 86527149 N30.00 Pain of [facility] 43182819 M25.519 rest, prn ice, call if persistent [id number] Tony Toure [facility] [address] [facility],[place] [address] 11/14/2018 13:43:31 11/14/2018 15:09:29 Type 2 diabetes mellitus 00224151 E11.9 follow Esophageal varices 67240 008 I85.00 banded Atrial fibrillation 4943 6004 I48.91 on eliquis Hypercholesterolemia 136 78785 E78.00 Hypothyroidism 16372667 E03.9 Essential hypertension 79129386 I10 well controlled , Diarrhea 17140246 R19.7 Eczema 95638333 L30.9 OTC eucerin BID, Tony Toure [facility] [address] [facility],[place] [address] 02/11/2019 13:57:01 02/11/2019 15:01:26 Abscess 774778775 L02.91 too swollen for proc today will give abx warm compress and gentle massage schedule i&d for next week Jaundice 74256096 R17 very mild has liver and gi specialist . seeing gi next week. seeing liver specialist in february for upper and lower endoscopy Metabolic dysfunction-associate d steatohepatitis 817674945 K75.81 check u/s for ascites written order for ab u/s Dyspnea on exertion 6084 5006 R06.09 written order for cxr [id number] Tony Toure [facility] [address] [facility],[place] [address] 02/22/2019 14:14:29 02/22/2019 15:22:55 Abscess 145353534 L02.91 attempted to numb with 1.5 cc of lidocaine, but abscess was too swollen for complete anesthesia used 18 guage needle to create opening of which copious discharge was expressed will give additional week of abx warm compress and gentle massage schedule repeat i&d for next week Jaundice 81131185 R17 not apparent today has liver and gi specialist . seeing gi next week. seeing liver specialist in february for upper and lower endoscopy Metabolic dysfunction-associate d steatohepatitis 152763170 K75.81 await us Dyspnea on exertion 6084 5006 R06.09 [place] [id number] Tony Toure [facility] [address] [facility],[place] [address] 03/04/2019 14:01:30 03/04/2019 15:25:18 Abscess 306738885 L02.91 f/u as planned the , sooner if needed Jaundice 29660742 R17 not apparent today has liver and gi specialist . seeing gi next week. seeing liver specialist in february for upper and lower endoscopy Metabolic dysfunction-associate d steatohepatitis 930444925 K75.81 await us results pt had us done last week Dyspnea on exertion 6084 5006 R06.09 xr was clear will reevaluate at fu Submammary intertrigo 24 0884564 L30.4 [id number] Tony Toure [facility] [address] [facility],[place] [address] 03/13/2019 14:16:29 03/13/2019 14:37:51 Type 2 diabetes mellitus 56843814 E11.9 sees endocrinol ogy every 3 months will get labs with endo Esophageal varices 31389 008 I85.00 banded having endoscopy on 03/27 for another banding if needed Atrial fibrillation 4943 6004 I48.91 on eliquis Hypercholesterolemia 136 90389 E78.00 on lovastatin Hypothyroidism 50736826 E03.9 normal in january 2019 Essential hypertension 70564252 I10 well controlled , Diarrhea 37636286 R19.7 resolved Eczema 11758223 L30.9 resolved Insomnia 140687313 G47.0 0 rare use of lorazepam maybe once per month Vitamin D deficiency 347 46220 E55.9 [id number] Tony Toure [facility] [address] [facility] [place] [facility] [place] [address] 05/21/2019 11:45:40 05/21/2019 12:20:38 Chronic tension-type headache 454052065 G44.229 ? stress related seem to be improving Type 2 luciano betes mellitus 35813833 E11.9 sees endocrinol ogy every 3 months will get labs with endo Essential hypertension 82260352 I10 well controlled [id number] Tony Toure [facility] [address] [facility] [facility] [address] [facility] [place] [address] 06/04/2019 16:00:31 06/04/2019 16:31:49 Type 2 diabetes mellitus 87455654 E11.9 sees endocrinol ogy every 3 months will get labs with endo Essential hypertension 31587054 I10 well controlled Temporal headache 375576 06 R51 Acute sinusitis 00750196 J01.90 will consider medrol dose pack if esr is normal may also consider flonase [id number] Tony Toure [facility] [address] [facility],[place] [address] 07/15/2019 13:28:27 07/15/2019 14:30:04 Type 2 diabetes mellitus 14126698 E11.9 sees endocrinol ogy every 4 months will get labs with endo gets foot exa with endo had dm eye exam in september, due again in september Esophageal varices 76746 008 I85.00 banded had endo/cscop e 7/3 all normal Atrial fibrillation 4943 6004 I48.91 on eliquis Hypercholesterolemia 136 88955 E78.00 on lovastatin will have labs with endo Hypothyroidism 42255120 E03.9 normal in january 2019 Essential hypertension 93902981 I10 well controlled Insomnia 515692933 G47.0 0 using 2-3 times per week not sleeping well having trouble falling asleep lorazepam only helps intermitte ntly sometimes takes tylenol and that helps Body mass index 30+ - obesity 540155755 Z68.34 Active or passive immunization 306508481 Z23 had flu shot due for tdap next year Frontal headache 3100732 05 R51 [id number] Tony Toure, [facility] Internal Medicine [address],[place] [address] 11/13/2019 15:00:05 11/13/2019 16:22:05 Type 2 diabetes mellitus 78135688 E11.9 sees endocrinol ogy every 4 months will get labs with endo gets foot exa with endo had dm eye exam in september, due again in september Esophageal varices 62408 008 I85.00 banded had endo/cscop e 7/3 all normal Atrial fibrillation 4943 6004 I48.91 on eliquis Hypercholesterolemia 136 50895 E78.00 on lovastatin will have labs with endo Hypothyroidism 71721428 E03.9 normal in january 2019 labs with endo usually Essential hypertension 57165112 I10 well controlled Insomnia 290922679 G47.0 0 sleeping better very rare need for lorazepam, maybe once a month Body mass index 30+ - obesity 575853006 Z68.34 Nausea 470371838 R11.0 try tums, evaluate diet if sx worsen consider f/u with gi Dizziness 225807124 R42 monitor, very mild Fatigue 09294049 R53.83 will see endo for that as well Vitamin D deficiency 347 35090 E55.9 Edema of l ower extremity 019420964 R60.0 she is on spironolac tone/lasix for liver started by GI seems likely it was related to diet already improving continue to monitor weights daily and call if increasing [id number] Tony Toure [facility] [address] [facility] [facility] [address] 02/26/2020 10:48:59 02/26/2020 11:34:18 Nausea and vomiting 24529937 R11.2 patient reports loss of appetite and vomiting for the last week [id number] Tony Toure DO [facility] Internal Medicine [address] [facility],[place] [address] 03/13/2020 15:32:36 03/13/2020 16:22:32 Atrial fibrillation 35105541 I48.91 stable Hepatic encephalopathy 11518992 K72.90 the patient reports brain fog Hepatorenal syndrome 512 31994 K76.7 will check ammonia level in the body and see how it is doing Jaundice 77091380 R17 pt is still jaundiced [id number] Tony Toure [facility] Internal [facility] [address] [place] [address] 06/05/2020 10:38:36 06/05/2020 14:21:19 Hepatic failure 51115136 K72.90 will recheck ammonia level if better can stop the lactulose and just monitor Acid reflux 407289275 K2 1.9 will try taking omeprazole in the morning and see if improvemen t can take two if needed Type 2 luciano betes mellitus 52516499 E11.9 stable per last blood draw [id number] Tony Toure DO [facility] Internal Medicine [address],[place] [address] 08/25/2020 14:10:45 08/25/2020 14:58:53 Hypercholesterolemia 68073002 E78.00 will check cholestero l Atrial fibrillation 4943 6004 I48.91 stable Essential hypertension 36032876 I10 BP excellent today Type 2 luciano betes mellitus 17707440 E11.9 consulting with cardiology on adjustment s [id number] Tony Toure [facility] Internal Medicine [address],[place] [address] 11/25/2020 13:27:35 11/25/2020 14:57:41 Essential hypertension 33132142 I10 BP excellent today will need to fu with her cardiologi st Atrial fibrillation 4943 6004 I48.91 may be having runs of afib due to the fact her medication Type 2 luciano betes mellitus 11029850 E11.9 consults with endo with A1c measuremen t will need to fu with them for BW Hypothyroidism 85049920 E03.9 will fu with endo tomorrow for lab work Depressive disorder 3548 9007 F32.9 will start on sertraline and fu to see how she is doing [id number] Tony Toure [facility] Internal Medicine [address],[place] [address] 01/04/2021 09:44:57 01/04/2021 10:38:55 Atrial fibrillation 95480173 I48.91 the patient was told by ER that she was having atrial fibrillati on Pain of ri ght hip joint 3018016076 81266 M25.551 possible back or hip pain XR lumbar spine normal at specialist told by specialist given liver failure safest thing to take is vicodin or percocet [id number] Tony Toure [facility] Internal Medicine [address],[place] [address] 04/07/2021 15:22:16 04/07/2021 15:56:03 Type 2 diabetes mellitus 27311661 E11.9 consults with endo with A1c measuremen t will need to fu with them for BW Atrial fibrillation 4943 6004 I48.91 the patient was told by ER that she was having atrial fibrillati on Essential hypertension 18624033 I10 BP excellent today will need to fu with her cardiologi st Hepatic failure 65808447 K72.90 will recheck ammonia level if better can stop the lactulose and just monitor Varicose v eins of lower extremity 85460863 I83.893 discussed US duplex for her varicose veins to see the extenttold patient to wear compressio n stockings Intermitte nt claudication 55823768 I73.9 will start with US duplex Steatotic liver disease 727080401 K76.0 has fu with specialist [id number] Tony Toure [facility] Internal Medicine [address] [address] 07/14/2021 14:36:41 07/14/2021 15:35:20 Hypercholesterolemia 17008616 E78.2 recent check Abdominal mass 587822116 R19.02 will fu with US Type 2 luciano betes mellitus 78758799 E11.9 consults with endo with A1c measuremen t will need to fu with them for BW Steatotic liver disease 381084910 K76.0 has fu with specialist Atrial fibrillation 4943 6004 I48.0 stable Chronic he patic failure 392067556 K72.10 on transplant list, follows Hepatic encephalopathy 03277820 K72.10 stable on lactulose with recent test [id number] Tony Toure [facility] Internal Medicine [address], [facility] [place] [address] 08/18/2021 10:18:23 08/18/2021 12:37:00 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 fu with [facility] Portal vei n thrombosis 76025188 I81 will fu with endo Atrial fibrillation 4943 6004 I48.0 stable Esophageal varices 17831 008 I85.00 has fu with endo to check for bleeds and if switch from Steatotic liver disease K76.0 has fu with specialist as well [id number] Tony Toure [facility] Internal Medicine [address], [facility] [place] [address] 10/06/2021 08:14:09 10/06/2021 15:45:49 Type 2 diabetes mellitus 79475675 E11.9 will be rech and get a1c and will be seeing her in november Esophageal varices 39955 008 I85.00 stable but will need to be followed carefully as she is back on eliquis Atrial fibrillation 4943 6004 I48.0 quiet and asymptomat ic Intermitte nt claudication 42467100 I73.9 quiet Chronic he patic failure 864182137 K72.10 still waiting for liver transplant Essential hypertension 26526068 I10 quiet and stable 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 404991341 K72.90 back on lactulose and doing much better reviewed hospitaliz ation in [place] discussion re need to be diligent with meds while waiting for transplant [id number] Tony Toure [facility] Internal Medicine [address],[place] [address] 10/22/2021 08:46:19 10/22/2021 15:45:16 Atrial fibrillation 51592219 I48.0 stable Chronic he patic failure 121641288 K72.10 on transplant list, follows Esophageal varices 14897 008 I85.00 monitoring her bleeding Essential hypertension 59061782 I10 BP excellent today will need to fu with her cardiologi st [id number] Tony Toure [facility] Internal Medicine [address],[place] [address] 12/06/2021 14:29:25 12/06/2021 15:01:19 Hypothyroidism 42596331 E03.9 Type 2 luciano betes mellitus 88440645 E11.9 will be rech and get a1c and will be seeing her in november Atrial fibrillation 4943 6004 I48.0 quiet and asymptomat ic Essential hypertension 61169118 I10 quiet and stable Chronic he patic failure 329061423 K72.10 still waiting for liver transplant Fatigue 39237823 R53.83 [id number] Tony Toure [facility] Internal Medicine [address],[place] [address] 01/31/2022 11:18:52 01/31/2022 12:07:22 Pressure ulcer 863776234 L89.899 will start on silvadene cream Candidiasis of skin 4988 3006 B37.2 given topical anti-funga l at home Atrial fibrillation 4943 6004 I48.0 stablestop ping eliquis and starting warfarin from specialist [id number] Tony Toure [facility] Internal Medicine [address],[place] [address] 03/02/2022 11:40:03 03/02/2022 16:36:21 Atrial fibrillation 12361651 I48.0 stable Edema of l ower extremity 706546670 R60.0 will increase lasix to 30 mg and recheck a CMP Gastroesop hageal reflux disease 450971840 K21.9 will fu with omeprazole Cirrhosis of liver 007 K74.02 will recheck her ammonia level [id number] Tony Toure [facility] Internal Medicine [address],[place] [address] 04/01/2022 14:20:42 04/01/2022 15:36:34 Type 2 diabetes mellitus 71233854 E11.9 consults with endo with A1c measuremen t will need to fu with them for BW Essential hypertension 41133885 I10 BP excellent today will need to fu with her cardiologi st Cough 57046786 R05.1 will give teslolaloalisa perles for cough Chronic ki dney disease stage 3 538702673 N18.31 will recheck CMP in two weeks after increase of lasix Edema of l ower extremity 128223749 R60.0 will increase lasix to 40mg and recheck a CMP [id number] Tony Toure [facility] Internal Medicine [address],[place] [address] 06/22/2022 13:28:15 06/22/2022 14:25:21 Atrial fibrillation 54396316 I48.0 stableneed s refill warfarin Chronic ki dney disease stage 3 461885558 N18.31 stable Cirrhosis of liver 09875 007 K74.02 stable [id number] Tony Toure [facility] Internal Medicine [address],[place] [address] 07/29/2022 14:42:13 08/01/2022 09:09:56 Vasculitis of the skin 03880139 L95.8 fu in two weeks Internatio nal normalized ratio above reference range 851706254 R79.1 monitor through clinic [id number] Tony Toure [facility] Internal Medicine [address],[place] [address] 10/28/2022 08:24:24 10/28/2022 14:45:46 Atrial fibrillation 29079637 I48.0 stableback on eliquis Hypothyroidism 36177435 E03.8 will f/u with endo tomorrow for lab work Type 2 luciano betes mellitus 26765374 E11.9 consults with endo with A1c measuremen t Essential hypertension 31477705 I10 BP excellent today will need to fu with her cardiologi st Advance care planning 71 5398619 Z71.89 on file Active or passive immunization 915986183 Z23 patient advised she is due for flu shot, tdap & shingles Chronic ki dney disease stage 3 953259965 N18.31 stable Chronic he patic failure 359686681 K72.10 on transplant list, follows Transplant ed liver present 185267717 Z94.4 doing really well [id number] Tony Toure [facility] Internal Medicine [address] [facility] [place] [address] 01/25/2023 16:20:44 01/25/2023 17:00:20 Edema of lower extremity 939703580 R60.0 will fu with transplant surgeon [id number] Tony Toure [facility] Internal Medicine [address],[place] [address] 02/07/2023 15:32:41 02/07/2023 17:23:08 Edema of lower extremity 199263415 R60.0 agreed to US venous and US arterial Splenic infarction 32100 003 D73.5 fu with [facility] Chronic ki dney disease stage 3 749468531 N18.31 stable Intermitte nt claudication 32395529 I73.9 will start with US duplex Peripheral venous insufficiency 19630662 I87.2 will set up with both duplex and venous Skin ulcer 95688993 L98. 491 will set up with US arterial and US duplex Transplant ed liver present 039029642 Z94.4 doing really well [id number] Tony Toure [facility] Internal Medicine [address] [facility] [place] [address] 05/16/2023 08:00:07 05/16/2023 16:05:24 Portal vein thrombosis 37367898 I81 will fu with endo Splenic infarction 71886 003 D73.5 fu with [facility] Atrial fibrillation 4943 6004 I48.0 stableback on eliquis Essential hypertension 23756208 I10 BP excellent today will need to fu with her cardiologi st Gastroesop hageal reflux disease 766232739 K21.9 will fu with omeprazole Hypercholesterolemia 136 82185 E78.2 recent check Hypothyroidism 79269290 E03.8 fu with endo Intermitte nt claudication 26980012 I73.9 stable Pulmonary hypertension 59822493 I27.0 stable 570008 Tony Toure [facility] Internal Medicine [address],[place] [address] 08/21/2023 15:35:21 08/21/2023 16:41:53 Trigger finger of right hand 8849151940 8247561 M65.311 will set up with ortho Tendinitis of left gluteal tendon 0199925553 93841 M76.02 told her to use a cushion or get a new chair Candidiasis of skin 4988 3006 B37.2 will have her use her nystatin on her left armpit [id number] Tony Toure [facility] Internal Medicine [address],[place] [address] 12/01/2023 14:15:39 12/01/2023 15:28:21 Atrial fibrillation 94733814 I48.0 stableback on eliquis Asthma 841552242 J45.40 needs alt to flovent Essential hypertension 11708723 I10 f/u with her cardiologi st Candidiasis of skin 4904 3006 B37.2 stablewill take over the ketoconazo le cream Lipoma of back 714621080 D17.1 will monitor [id number] Tony Toure [facility] Internal Medicine [address],[place] [address] 02/06/2024 10:59:49 02/06/2024 11:45:50 Depression screening 056154787 Z13.31 stable Acute urin sachin tract infection 308325116 N39.0 will start on amoxicilli n Lesion of liver 50093305 0 K72.10 stable Type 2 luciano betes mellitus 41278045 E11.9 consults with endo with A1c measuremen t Transplant ed liver present 048351532 Z94.4 doing really well Peripheral vascular disease 203250735 I73.9 stable Pulmonary hypertension 11827322 I27.0 stable Chronic ki dney disease stage 3 631581590 N18.31 stable Skin ulcer 61832177 L98. 491 stable [id number] Tony Toure [facility] Internal Medicine [address],[place] [address] 03/12/2024 14:17:11 03/13/2024 09:24:06 Depression screening 016085245 Z13.31 stable Abdominal pain 84586348 R10.10 agreed to US abd and pelviswill r/o any other causes for the upper abdominal and pelvic discomfort s/p surgeryhas not had an imaging since November last year to recheck the area Acute urin sachin tract infection 086970832 N39.0 will set up with a recheck her urine to make sure resolution of the utiagreed to this [id number] Tony Toure [facility] Internal Medicine [address],[place] [address] 06/26/2024 14:17:27 06/26/2024 14:58:48 Chronic kidney disease stage 3 408239824 N18.31 stable Hypothyroidism 48961609 E03.8 f/u with endo in October Type 2 luciano betes mellitus 01991376 E11.9 consults with endo in October325 Tony Toure [facility] Internal Medicine [address], [place] [address] 10/04/2024 14:12:33 10/04/2024 15:06:54 Acute urinary tract infection 215312340 N10 switch out to an alternativ e abx Transplant ed liver present 928436186 Z94.4 elevated creatinine , monitored by her transplant team Palpitations 09115348 R0 0.2 cardio ordered a 2 day holter monitor Atrial fibrillation 4943 6004 I48.0 waiting a culture [id number] Tony Toure [facility] Internal Medicine [address], [place] [address] 01/20/2025 14:11:47 01/20/2025 14:51:12 Depression screening 166303835 Z13.31 stable Nausea 411200417 R11.0 will set up with refil of medication Abdominal pain 19755896 R10.10 agreed to US abd and pelviswill r/o any other causes for the upper abdominal and pelvic discomfort s/p surgeryhas not had an imaging since November last to recheck the area Atrial fibrillation 4943 6004 I48.0 stable Typical at rial flutter 660025369 I48.3 Health Concerns Section Related Observation LastModified by Organization Detai ls LastModified Time None Recorded Concern Status LastModified by Organization Details LastModified Time None Recorded Advance Directives Directive None Recorded Payers Insurance Date Sequence Insurance Name Policy Number Policy Mayers Covered Member ID Mayers Member ID Guarantor Name 10/02/2024 2 [place] [id number] Elysia Valle [id number] Elysiareyna Valle 02/11/2025 1 [place] [employer] [employer] Elysia Valle [id number] Elysia Valle 10/02/2024 2 [facility] [employer] - DIRECT CONNECTORCARE TYPE I (HMO) [id number] Elysia Valle [id number] Elysia Valle 08/31/2021 2 UNSPECIFIED REMIT PAYOR Elysia Valle 02/12/2025 2 [place] [id number] Elysia Valle [id number] Elysia Valle Notes Date Note Type Note Provider Name and Address Organization Details Recorded Time 4 text/html c/o elevated WBC, transplant surgeon [...] chrondritiswill give her lidocaine TRINO ZARAGOZA [address] [place], [address], [facility] 02/06/2024 11:36:35 4 text/html 3 [...] to make sure resolution TRINO ZARAGOZA [address] [facility], [place], [address], [facility] 03/12/2024 14:54:00 4 text/html 3 [...] ankle swelling, orthopnea, palpitations TRINO ZARAGOZA [address] [place], [address], [facility] 06/26/2024 14:43:04 5 text/html 3 [...] her levels through transplant TRINO ZARAGOZA [address] [place], [address], [facility] 10/04/2024 14:50:19 5 text/html f/u med check the patient is doing wellstill seeing liver transplant teamrecent lab work done by them, results are in the patient is going to be having an endoscope and colonoscopy with GI for routine evaluation the patient reports that she is getting her toenails cutsuggested eval with them for her toe pain, the left fourth toehas a hammer toe, known neuropathy due to diabetesrecommended better shoes with better support nausea: ?GERD in the AM, recommended elevating her head to 40 degrees depression screening: The patient denies little pleasure in activities they find enjoyable, feeling depressed, difficulties sleeping, feeling tired or having little energy, change in appetite, feeling guilty, overwhelmed or unmotivated. The patient denies suicidal ideation, thoughts of hurting themselves or others. Their mood is appropriate, they show good judgement and clear understanding of the conversation. They are orientated to time, place and person. They are not expressing any concerning thoughts or actions that would need further investigation and treatment for mental health. TRINO ZARAGOZA [address] [place] [address], [place], [address], [facility] 01/20/2025 14:46:06 OBGyn Episode No OBEpisode recorded.
== END 2025-03-11 14:58 | disposition home or self-care (01) ==
PROVIDERS: PCP Internal Medicine; Visit Provider Internal Medicine Cardiovascular Disease
DX: I48.20 Chronic atrial fibrillation, unspecified (principal)
CPT/HCPCS: 93010; 99214; G2211

== ENCOUNTER → 2025-03-11 14:26 | Outpatient (BNVA) | payer MEDICARE, SELFPAY | PROVIDERS: PCP Internal Medicine; Visit Provider Internal Medicine Cardiovascular Disease | DX: I48.20 Chronic atrial fibrillation, unspecified (principal); I48.91 Unspecified atrial fibrillation; R94.31 Abnormal electrocardiogram [ECG] [EKG]; I44.4 Left anterior fascicular block | CPT/HCPCS: 93005; 99212 ==

== ENCOUNTER 2025-03-15 06:48 | Outpatient (REF) | payer MEDICARE, SELFPAY ==
[2025-03-15 11:47] LABS: Digoxin 0.4 ng/mL (0.8-2.0)
== END 2025-03-15 06:49 | disposition home or self-care (01) ==
LOC: HO.HMGCLDS 06:48
PROVIDERS: PCP Internal Medicine; Visit Provider Internal Medicine Cardiovascular Disease
DX: I48.20 Chronic atrial fibrillation, unspecified (principal); Z79.899 Other long term (current) drug therapy
CPT/HCPCS: 36415; 80162

== ENCOUNTER 2025-03-22 19:36 | Emergency (ER) | payer MEDICARE, SELFPAY ==
--- NOTE | ~2025-03-22 | CT_ITS ---
CLINICAL HISTORY: AMS since 1pm, on eliquis CT head without contrast Comparison: 03/21/2022 Findings: No intracranial mass, midline shift, hydrocephalus, or acute hemorrhage. Moderate chronic ischemic white matter disease with mild volume loss. No acute process in sinuses or mastoids. No acute bony abnormality. Impression: No acute intracranial process This document has been electronically signed by: Steven Gooden MD on 03/22/2025 21:23:52
--- NOTE | ~2025-03-22 | XR_ITS ---
CLINICAL HISTORY: sob 1 view chest x-ray Comparison: None provided Findings: Lungs are clear without acute infiltrates. Chronic interstitial fibrosis pattern. No pneumothorax. Heart size normal. No acute bony abnormalities. Impression: No acute processes This document has been electronically signed by: Steven Gooden MD on 03/22/2025 23:54:59
--- NOTE | ~2025-03-22 | CT_ITS ---
CLINICAL HISTORY: aphasia CT angiography head and neck with contrast. 3D Postprocessing. Comparison: CT/REG/SR - CT HEAD/BRAIN WO IV CON - 03/22/25 20:[address]/SR - CT HEAD/BRAIN WO CON - 03/21/22 23:31 EDT Findings: Aortic arch and cervical great vessels are patent with no aneurysm, dissection, hemodynamically significant stenoses, or occlusion. Intracranial arteries are patent. No aneurysm, dissection, hemodynamically significant stenoses, or occlusion. No abnormal intracranial enhancement. Atrophic thyroid gland. Lung apices clear. No acute fracture. IMPRESSION: Patent head and neck CTA. This document has been electronically signed by: Dada Escobar MD on 03/23/2025 02:49:44
[2025-03-22 19:40] VITALS: BP 118/94; PULSE 98; RESP 22; TEMP 36.8; O2SAT 94; BMI 33.5
--- NOTE | 2025-03-22 19:43 | ED.AMS ---
HPI - Altered Mental Status General Chief Complaint: Altered Mental Status Stated Complaint: confused/saying weird stuff-started today Time Seen by Provider: 03/22/25 21:00 Source: patient and family Limitations: altered mental status History of Present Illness ED Provider: Simran Heath PA-C HPI narrative: 65-year-old female with a history of cirrhosis now status post liver transplant on tacrolimus, diabetes, hypertension, hyperlipidemia, AFib on apixaban who presents with altered mental status. The patient's states that his woke up this morning around 9:00 a.m., she decided to go back to bed then woke up this afternoon. The has been states that when she woke up from her nap, she seemed confused, she kept repeating the same phrases. She seemed as if she had short-term memory loss. Unclear when her last known well time was. No unilateral weakness, no facial droop, no slurred speech. The patient's states that her behavior resembles prior episodes of hepatic encephalopathy, prior to her transplant. The patient denies any physical concerns or complaints at this time. Related Data Home Medications ?Medication ?Instructions ?Recorded ?Confirmed clotrimazole-betamethasone 1 1 applic topical BID PRN Rash 07/02/20 03/11/25 %-0.05 % topical cream fluticasone propionate 250 1 inh inhalation BEDTIME 07/02/20 03/11/25 mcg/actuation blister powder for inhalation insulin glargine 100 unit/mL (3 50 unit subcut BEDTIME 07/02/20 03/11/25 mL) subcutaneous pen lovastatin 40 mg tablet 40 mg PO BEDTIME 08/19/20 03/11/25 acetaminophen 325 mg tablet 650 mg PO Q4H PRN Pain 07/27/21 03/11/25 insulin lispro 100 unit/mL See Protocol subcut TIDAC 07/27/21 03/11/25 subcutaneous pen (Humalog KwikPen (U-100) Insulin) silver sulfadiazine 1 % topical appl topical BID 02/25/22 03/11/25 cream cyclosporine 0.05 % eye drops in a 1 drp ophthalmic (eye) Q12H 12/21/22 03/11/25 dropperette (Restasis) ergocalciferol (vitamin D2) 1,250 1,250 mcg PO QWEEK 12/21/22 03/11/25 mcg (50,000 unit) capsule mycophenolate mofetil 250 mg 750 mg PO BID 12/21/22 03/11/25 capsule pantoprazole 40 mg tablet,delayed 40 mg PO DAILY 12/21/22 03/11/25 release triamterene 37.5 1 cap PO QAM 12/21/22 03/11/25 mg-hydrochlorothiazide 25 mg capsule alprazolam 0.5 mg tablet 0.5 mg PO DAILY PRN 06/26/23 03/11/25 levothyroxine 137 mcg tablet 137 mcg PO DAILY 06/26/23 03/11/25 (Synthroid) magnesium oxide 400 mg (241.3 mg 400 mg PO ONCE 06/26/23 03/11/25 magnesium) tablet torsemide 20 mg tablet 40 mg PO ONCE 06/26/23 03/11/25 tacrolimus 1 mg capsule, 1 mg PO Q12H 03/07/24 03/11/25 immediate-release Previous Rx's ?Medication ?Instructions ?Recorded nystatin 100,000 unit/gram topical 1 appl topical BID #30 grams 01/22/22 cream ferrous sulfate 325 mg (65 mg 325 mg PO BID 90 days #180 tabs 05/09/22 iron) tablet metoprolol succinate 100 mg 100 mg PO Q12H 90 days #180 tabs 07/03/24 tablet,extended release 24 hr apixaban 5 mg tablet (Eliquis) 5 mg PO BID #180 tabs 09/09/24 digoxin 62.5 mcg (0.0625 mg) tablet 62.5 mcg PO DAILY #90 tabs 12/17/24 cephalexin 500 mg capsule 500 mg PO Q12H #14 caps 03/23/25 Allergies Allergy/AdvReac Type Severity Reaction Status Date / Time metoclopramide (From REGLAN) Allergy Unknown SWELLING Verified 03/25/25 19:11 tramadol (TRAMADOL) Allergy Unknown SWELLING Verified 03/25/25 19:11 From AUGMENTIN Allergy Mild COUGHING, Uncoded 03/25/25 19:11 LOW BP\ Review of Systems Review of Systems: Yes all other systems are reviewed and are negative Constitutional: Constitutional: Denies fatigue and Denies headache(s) ENT: Denies dizziness and Denies headache(s) Cardiovascular: Cardiovascular: Denies chest pain and Denies dyspnea Respiratory: Respiratory: Denies dyspnea Gastrointestinal: Gastrointestinal: Denies abdominal pain, Denies nausea and Denies vomiting Genitourinary: Genitourinary: Denies dysuria Neurologic: Denies dizziness and Denies headache(s) Endocrine: Endocrine: Denies fatigue [facility] Past Medical History Attestation statement: The following information was validated with the patient. Medical History Portal hypertension PAC (premature atrial contraction) Iron deficiency anemia Esophageal varices without bleeding Cirrhosis of liver with ascites History of colonic polyps GERD (gastroesophageal reflux disease) Paroxysmal atrial fibrillation Hypertension Hyperlipidemia Type 2 diabetes mellitus Asthma Thyroid disease Shingles Obesity (BMI 35.0-39.9 without comorbidity) Surgical History Status post surgical removal of pilonidal cyst (~1979) History of partial hysterectomy (~1998) Hx of endoscopy Hx of colonoscopy Family History Family History Father No problems noted. Mother No problems noted. Paternal Grandmother Colon cancer Social History Social History Household Members: Spouse Housing: House Do you presently have visiting nurse or other home services: No Alcohol intake: former Patient Tobacco Use Status: Never used Tobacco service: No Current occupational status: disabled Current occupational exposures/hazards: No Physical Exam ED Vital Signs: Vital Signs - 24 hr 03/22/25 19:40 03/22/25 22:10 03/22/25 23:49 Temperature 98.3 F 98.5 F Pulse Rate 98 81 81 Respiratory Rate 22 H 16 18 Blood Pressure 118/94 H 123/53 L 103/66 Pulse Oximetry 94 98 98 Oxygen Delivery Method Room Air Room Air 03/23/25 02:25 Temperature 97.7 F Pulse Rate 69 Respiratory Rate 13 Blood Pressure 121/70 Pulse Oximetry 98 Oxygen Delivery Method Room Air BMI result Body Mass Index 33.5 Const Other: Alert Orientation/consciousness: patient oriented x3 Resp Effort & Inspection: normal respiratory effort Cardio Other: Normal peripheral perfusion Skin Other: Warm dry no rash Neuro Other: No expressive or receptive aphasia noted, her behavior is odd, she is repeating phrases back to me as I asked her questions then she will answer, she keeps asking her for reassurance, stating ?right isn't that right?. General: patient oriented x3, gait normal, no focal motor deficits and CN's II-XI intact bilaterally Psych Other: Patient is cooperative, her behavior is odd, difficult to describe, she is repeating phrases back to me as I ask her questions NIH Stroke Scale Internal: Other Level of Consciousness: Alert Level of Consciousness Questions: Answers both questions correctly Level of Consciousness Commands: Performs both tasks correctly Best Gaze: Normal Visual: No visual loss Facial Palsy: Normal Motor Arm (Right): No drift Motor Arm (Left): No drift Motor Leg (Right): No drift Motor Leg (Left): No drift Limb Ataxia: Absent Sensory: Normal Best Language: No aphasia Dysarthia: Normal Extinction and Inattention: No abnormality Score: 0 Course Course Course Narrative: Ileana Andrade APRN This is a rapid medical exam. Deferred additional HPI, ROS, PE to primary provider. 65 yo female here with confusion today. Last known normal 1pm. She has a [facility] liver transplant ([facility]), afib on eliquis, DM. Does not take lactulose. Will obtain labs, EKG, UA, CT head. Medications Administered Discontinued Medications Generic Name Dose Route Start Last Admin Trade Name Russell PRN Reason Stop Dose Admin Ceftriaxone Sodium 2 gm 03/22/25 22:49 03/22/25 23:27 Ceftriaxone Sodium 2 Gm Vial IVPUSH 03/22/25 22:50 2 gm ONCE ONE Administration Magnesium Sulfate 2 gm in 50 mls @ 25 mls/hr 03/22/25 21:01 03/22/25 23:26 Magnesium Sulfate/H2o IV 03/22/25 23:00 Infused ONCE ONE Infusion Iohexol 85 ml 03/23/25 00:19 03/23/25 00:20 Iohexol 350 Mg/Ml 100 Ml Infus..Btl IV 03/23/25 00:20 85 ml ONCE ONE Administration Medical Decision Making Medical Decision Making [facility] Narrative: 65-year-old female with a history of cirrhosis now status post liver transplant on tacrolimus, diabetes, hypertension, hyperlipidemia, AFib on apixaban who presents with altered mental status. The patient's states that his woke up this morning around 9:00 a.m., she decided to go back to bed then woke up this afternoon. The has been states that when she woke up from her nap, she seemed confused, she kept repeating the same phrases. She seemed as if she had short-term memory loss. Unclear when her last known well time was. No unilateral weakness, no facial droop, no slurred speech. The patient's states that her behavior resembles prior episodes of hepatic encephalopathy, prior to her transplant. The patient denies any physical concerns or complaints at this time. Problem: Prior cirrhosis status post transplant, diabetes, History: Per patient's I have considered the following differential diagnoses: Early stage dementia, UTI, CVA, liver failure, hepatic encephalopathy, Plan: The patient's presentation is odd. She is not having focal deficits, she truly is not aphasic, I do agree she is certainly behaving inappropriately. She is not having abdominal pain, her liver function tests are at baseline, I do not think this is failed trans flap with the associated encephalopathy. Urine pending, she could have a UTI. She could be developing early stages of dementia. It is a stretch, but this could be an atypical presentation for CVA. She does have risk factors for vascular disease, ordering the studies. I have independently reviewed the following tests: Labs: Leukocytosis, not anemic, no electrolyte abnormality, urine infected, viral panel negative CT brain:Impression: No acute intracranial process CT angio head neck:MPRESSION: Patent head and neck CTA. Lab Data 03/22/25 20:02 03/22/25 20:02 Labs: Lab Results 03/22/25 03/22/25 03/22/25 Range/Units 20:02 22:10 22:37 WBC 17.2 H (4.8-10.8) X10*3/uL RBC 4.41 (4.20-5.50) X10*6/uL Hgb 13.5 (12.0-16.0) g/dl Hct 39.9 (37.0-47.0) % MCV 90.5 (80.0-98.0) fL MCH 30.6 (27.0-33.0) pg MCHC 33.8 (31.0-35.0) g/dl RDW 13.5 (11.0-16.0) % Plt Count 245 D (160-400) X10*3/uL MPV 11.0 (9.4-12.3) fL Immature Gran % (Auto) 0.9 H (0.0-0.4) % Neut % (Auto) 91.7 H (45-73) % Lymph % (Auto) 5.3 L (20-40) % Lee % (Auto) 1.7 L (2-11) % Eos % (Auto) 0.1 (0-4) % Baso % (Auto) 0.3 (0-2) % Lymph # (Auto) 0.9 L (1.2-4.9) X10*3/uL Lee # (Auto) 0.3 (0.1-1.2) X10*3/uL Eos # (Auto) 0.0 (0.0-0.4) X10*3/uL Baso # (Auto) 0.1 (0.0-0.2) X10*3/uL Abs Immat Gran (auto) 0.16 H (0.00-0.03) X10*3/uL Absolute Neuts (auto) 15.7 H (2.0-8.3) x10*3/uL Absolute Nucleated RBC 0.000 (0.0-0.012) X10*3/uL Nucleated RBC % (auto) 0.0 (0.0-0.2) /100WBC Smear Tech's Comments VERIFIED PT 16.8 H (10.9-12.4) SEC INR 1.5 H D (0.9-1.1) Sodium 135 (135-145) mmol/L Potassium 4.6 (3.3-5.1) mmol/L Chloride 99 (96-108) mmol/L Carbon Dioxide 22 (22-29) mmol/L Anion Gap 19 (12-20) BUN 25 H (9-16) mg/dL Creatinine 1.26 (0.5-1.4) mg/dL Estim Creat Clear Calc 52.4 Estimated GFR 42 Random Glucose 381 H* (60-115) mg/dL Lactic Acid (0.5-2.0) mmol/L Calcium 9.9 D (8.4-10.2) mg/dL Magnesium 1.4 L* (1.6-2.6) mg/dL Total Bilirubin 1.1 H (0.0-1.0) mg/dL Direct Bilirubin 0.4 (0.0-0.5) mg/dL AST 15 (5-31) U/L ALT 12 (0-31) U/L Alkaline Phosphatase 74 (39-117) U/L Ammonia 30 (13-55) umol/L Troponin I High Sens 9.5 (<3.5-17.0) ng/L Total Protein 6.9 (6.5-8.0) g/dL Albumin 4.2 (3.5-5.0) g/dL Urine Color Yellow Urine Appearance Clear Urine pH 6.5 (5.0-9.0) Ur Specific Kiester 1.010 (1.005-1.025) Urine Protein Negative (Neg-Trace) mg/dL Urine Glucose (UA) 500 H (Negative) mg/dL Urine Ketones Negative (Negative) mg/dL Urine Blood Negative (Negative) Urine Nitrite Positive H (Negative) Ur Leukocyte Esterase Moderate (2+) H (Negative) Urine RBC 0-2 (0-2) /HPF Urine WBC >50 H (0-5) /HPF Ur Squamous Epith Cells 3-5 (0-2) /HPF Urine Bacteria 4+ (None Seen) Hyaline Casts 0-2 (0-2) /LPF Tacrolimus mcg/L Influenza Type A (PCR) NEGATIVE (Negative) Influenza Type B (PCR) NEGATIVE (Negative) RSV RNA Qual (PCR) NEGATIVE (Negative) SARS-CoV-2 RNA (RT-PCR) NEGATIVE (Negative) 03/22/25 Range/Units 22:38 WBC (4.8-10.8) X10*3/uL RBC (4.20-5.50) X10*6/uL Hgb (12.0-16.0) g/dl Hct (37.0-47.0) % MCV (80.0-98.0) fL MCH (27.0-33.0) pg MCHC (31.0-35.0) g/dl RDW (11.0-16.0) % Plt Count (160-400) X10*3/uL MPV (9.4-12.3) fL Immature Gran % (Auto) (0.0-0.4) % Neut % (Auto) (45-73) % Lymph % (Auto) (20-40) % Lee % (Auto) (2-11) % Eos % (Auto) (0-4) % Baso % (Auto) (0-2) % Lymph # (Auto) (1.2-4.9) X10*3/uL Lee # (Auto) (0.1-1.2) X10*3/uL Eos # (Auto) (0.0-0.4) X10*3/uL Baso # (Auto) (0.0-0.2) X10*3/uL Abs Immat Gran (auto) (0.00-0.03) X10*3/uL Absolute Neuts (auto) (2.0-8.3) x10*3/uL Absolute Nucleated RBC (0.0-0.012) X10*3/uL Nucleated RBC % (auto) (0.0-0.2) /100WBC Smear Tech's Comments PT (10.9-12.4) SEC INR (0.9-1.1) Sodium (135-145) mmol/L Potassium (3.3-5.1) mmol/L Chloride (96-108) mmol/L Carbon Dioxide (22-29) mmol/L Anion Gap (12-20) BUN (9-16) mg/dL Creatinine (0.5-1.4) mg/dL Estim Creat Clear Calc Estimated GFR Random Glucose (60-115) mg/dL Lactic Acid 1.9 (0.5-2.0) mmol/L Calcium (8.4-10.2) mg/dL Magnesium (1.6-2.6) mg/dL Total Bilirubin (0.0-1.0) mg/dL Direct Bilirubin (0.0-0.5) mg/dL AST (5-31) U/L ALT (0-31) U/L Alkaline Phosphatase (39-117) U/L Ammonia (13-55) umol/L Troponin I High Sens (<3.5-17.0) ng/L Total Protein (6.5-8.0) g/dL Albumin (3.5-5.0) g/dL Urine Color Urine Appearance Urine pH (5.0-9.0) Ur Specific Kiester (1.005-1.025) Urine Protein (Neg-Trace) mg/dL Urine Glucose (UA) (Negative) mg/dL Urine Ketones (Negative) mg/dL Urine Blood (Negative) Urine Nitrite (Negative) Ur Leukocyte Esterase (Negative) Urine RBC (0-2) /HPF Urine WBC (0-5) /HPF Ur Squamous Epith Cells (0-2) /HPF Urine Bacteria (None Seen) Hyaline Casts (0-2) /LPF Tacrolimus 3.5 L mcg/L Influenza Type A (PCR) (Negative) Influenza Type B (PCR) (Negative) RSV RNA Qual (PCR) (Negative) SARS-CoV-2 RNA (RT-PCR) (Negative) Discharge Plan Discharge Clinical Impression: Urinary tract infection, Altered mental status Patient Disposition: Home, Self-Care Instructions: Altered Mental Status (ED), Urinary Tract Infection in Older Adults (ED) Additional Instructions: You were found to have a urinary tract infection. The remainder of your screening labs were normal, including your liver function tests. CT scan of your brain was normal. CT angiograms of your head and neck were normal as well, you were not having a stroke. I believe your altered mental status is secondary to a urinary tract infection. Take the cephalexin as directed. Call your liver specialists and your primary care provider tomorrow to schedule follow up appointments. Prescriptions: New cephalexin 500 mg capsule 500 mg PO Q12H Qty: 14 0RF No Action ferrous sulfate 325 mg (65 mg iron) tablet 325 mg PO BID 90 Days Qty: 180 1RF metoprolol succinate 100 mg tablet extended release 24 hr 100 mg PO Q12H 90 Days Qty: 180 3RF Eliquis 5 mg tablet 5 mg PO BID Qty: 180 3RF digoxin 62.5 mcg (0.0625 mg) tablet 62.5 mcg PO DAILY Qty: 90 1RF insulin lispro [Humalog KwikPen Insulin] 100 unit/mL insulin pen See Protocol subcut TIDA Protocol: Insulin Correction Scale Less than or equal to 110 ---- Give (units): 0 111 to 150 Give (units): 0 151 to 200 Give (units): 2 201 to 250 Give (units): 4 251 to 300 Give (units): 6 301 to 350 Give (units): 8 Greater than 350 Give (units): 10 Call MD if Blood Glucose > : 350 acetaminophen 325 mg Tablet 650 mg PO Q4H PRN (Reason: Pain) nystatin 100,000 unit/gram cream 1 appl topical BID Qty: 30 1RF insulin glargine 100 unit/mL (3 mL) insulin pen 50 unit subcut BEDTIME clotrimazole-betamethasone 1-0.05 % cream 1 applic topical BID PRN (Reason: Rash) fluticasone propionate 250 mcg/actuation blister with device 1 inh inhalation BEDTIME lovastatin 40 mg tablet 40 mg PO BEDTIME mycophenolate mofetil 250 mg capsule 750 mg PO BID cyclosporine [Restasis] 0.05 % dropperette 1 drp ophthalmic (eye) Q12H ergocalciferol (vitamin D2) 1,250 mcg (50,000 unit) capsule 1,250 mcg PO QWEEK triamterene-hydrochlorothiazid 37.5-25 mg capsule 1 cap PO QAM pantoprazole 40 mg tablet,delayed release (DR/EC) 40 mg PO DAILY torsemide 20 mg tablet 40 mg PO ONCE silver sulfadiazine 1 % cream topical BID levothyroxine [Synthroid] 137 mcg tablet 137 mcg PO DAILY alprazolam 0.5 mg tablet 0.5 mg PO DAILY PRN magnesium oxide 400 mg (241.3 mg magnesium) tablet 400 mg PO ONCE tacrolimus 1 mg capsule 1 mg PO Q12H Interventions: ED Discharge Assessment Last Done: 03/23/25 04:17 Discharge Date/Time: 03/23/25 04:18 Print Language: Yoruba
--- NOTE | 2025-03-22 19:44 | ECG_ITS ---
Test Reason : WEAKNESS Blood Pressure : */* mmHG Vent. Rate : 101 BPM Atrial Rate : 227 BPM P-R Int : * ms QRS Dur : 94 ms QT Int : 342 ms P-R-T Axes : * -67 -85 degrees QTcB Int : 443 ms Atrial flutter with variable A-V block Left axis deviation Anterior infarct , age undetermined Abnormal ECG When compared with ECG of 30-Sep-2021 13:38, Rhythm change Nonspecific T wave abnormality now evident in Lateral leads Referred By: Ileana Andrade Electronically Signed By: NEVAEH MICHAELS
[2025-03-22 20:10] LABS: Basophils Absolute Auto 0.1 X10*3/uL (0.0-0.2); Basophils Percent Auto 0.3 % (0-2); Eosinophils Percent Auto 0.1 % (0-4); Hematocrit 39.9 % (37.0-47.0); Hemoglobin 13.5 g/dl (12.0-16.0); Imm Gran Abs Auto 0.16 X10*3/uL (0.00-0.03); Imm Gran Pct Auto 0.9 % (0.0-0.4); Lymphocytes Absolute Auto 0.9 X10*3/uL (1.2-4.9); Lymphocytes Percent Auto 5.3 % (20-40); MANUAL DIFF FLAG SCAN; Mean Corpuscular HGB Conc 33.8 g/dl (31.0-35.0); Mean Corpuscular Hemoglobin 30.6 pg (27.0-33.0); Mean Corpuscular Volume 90.5 fL (80.0-98.0); Monocytes Absolute Auto 0.3 X10*3/uL (0.1-1.2); Monocytes Percent Auto 1.7 % (2-11); Neutrophils Absolute Auto 15.7 x10*3/uL (2.0-8.3); Neutrophils Percent Auto 91.7 % (45-73); Platelet Count 245 X10*3/uL (160-400); Red Blood Count 4.41 X10*6/uL (4.20-5.50); Red Cell Distribution Width 13.5 % (11.0-16.0); SCAN SMEAR FLAG 1; White Blood Count 17.2 X10*3/uL (4.8-10.8)
[2025-03-22 20:15] LABS: Ammonia 30 umol/L (13-55); INTERNATIONAL NORM RATIO 1.5 (0.9-1.1); Prothrombin Time 16.8 SEC (10.9-12.4)
[2025-03-22 20:31] LABS: Troponin-I High Sensitivity 9.5 ng/L (<3.5-17.0)
[2025-03-22 20:32] LABS: Alanine Aminotransferase 12 U/L (0-31); Albumin Level 4.2 g/dL (3.5-5.0); Alkaline Phosphatase 74 U/L (39-117); Anion Gap 19 (12-20); Aspartate Amino Transferase 15 U/L (5-31); Bilirubin Direct 0.4 mg/dL (0.0-0.5); Bilirubin Total 1.1 mg/dL (0.0-1.0); Blood Urea Nitrogen 25 mg/dL (9-16); Calcium 9.9 mg/dL (8.4-10.2); Carbon Dioxide 22 mmol/L (22-29); Chloride 99 mmol/L (96-108); Creatinine Clr Calc Pharmacy 52.4; Estimated Glomerular Filt Rate 42; Glucose Random 381 mg/dL (60-115); Magnesium 1.4 mg/dL (1.6-2.6); Potassium 4.6 mmol/L (3.3-5.1); Sodium 135 mmol/L (135-145); Total Protein 6.9 g/dL (6.5-8.0)
[2025-03-22 21:03] LABS: SLIDE REVIEW VERIFIED
[2025-03-22] MEDS: Magnesium Sulfate/H2O 2 GM/50 ML PIGGYBACK IV (21:14)
[2025-03-22 22:10] VITALS: BP 123/53; PULSE 81; RESP 16; O2SAT 98
[2025-03-22 22:19] LABS: Appearance Urine Clear; Color Urine Yellow; Glucose Urine UA 500 mg/dL (Negative); Leukocyte Esterase Urine Moderate (2+) (Negative); Nitrite Urine Positive (Negative); PH 6.5 (5.0-9.0); UMIC TRIGGER UACC YES; Urine Blood Negative (Negative); Urine Ketones Negative (Negative); Urine Protein Negative (Neg-Trace)
[2025-03-22 22:24] LABS: Bacteria Urine 4+ (None Seen); Hyaline Casts Urine 0-2 /LPF (0-2); RBC Urine 0-2 /HPF (0-2); UACC Culture Trigger YES; WBC Urine >50 /HPF (0-5)
[2025-03-22 23:00] LABS: Lactic Acid 1.9 mmol/L (0.5-2.0)
[2025-03-22 23:20] LABS: Influenza A PCR NEGATIVE (Negative); Influenza B PCR NEGATIVE (Negative); Resp Syncy Virus RNA Qual PCR NEGATIVE (Negative); SARS COV2 PCR INHOUSE NEGATIVE (Negative)
[2025-03-22] MEDS: cefTRIAXone sodium 2 GM VIAL IVPUSH (23:27)
--- NOTE | 2025-03-22 23:31 | PC.NURSE ---
assumed care of patient at this time. at bedside not reports of pain. however patient noted to have difficultly with words. repeating the same questions and answers.
[2025-03-22 23:49] VITALS: BP 103/66; PULSE 81; RESP 18; TEMP 36.9; O2SAT 98
[2025-03-23] MEDS: iohexoL 350 MG/ML 100 ML INFUS..BTL 85 ML IV (00:20)
[2025-03-23 02:25] VITALS: BP 121/70; PULSE 69; RESP 13; TEMP 36.5; O2SAT 98
[2025-03-23 04:04] VITALS: BP 149/64; PULSE 61; RESP 12; O2SAT 97
[2025-03-23 04:17] VITALS: BP 149/64; PULSE 61; RESP 12; TEMP 36.6; O2SAT 97
[2025-03-24 12:08] LABS: Tacrolimus Prograf 3.5 mcg/L
== END 2025-03-23 04:18 | disposition home or self-care (01) ==
PROVIDERS: Nurse Practitioner Family; Physician Assistant Medical; Emergency Provider Emergency Medicine Emergency Medical Services; PCP Internal Medicine
DX: N39.0 Urinary tract infection, site not specified (principal); R41.82 Altered mental status, unspecified; I48.91 Unspecified atrial fibrillation; R13.0 Aphagia; I48.92 Unspecified atrial flutter; Z79.01 Long term (current) use of anticoagulants; Z03.818 Encounter for observation for suspected exposure to other biological agents ruled out; Z79.899 Other long term (current) drug therapy
CPT/HCPCS: 0241U; 36415; 70450; 70496; 70498; 71045; 80048; 80076; 80197; 81001; 82140; 83605; 83735; 84484; 85025; 85610; 87040; 87086; 87088; 87186; 93005; 96365; 96366; 96375; 99284; 99285; J0696; J3475; Q9967

== ENCOUNTER → 2025-03-22 19:43 | Outpatient (BNV) | payer MEDICARE, SELFPAY | PROVIDERS: PCP Internal Medicine; Visit Provider Radiology Diagnostic Radiology | DX: R41.82 Altered mental status, unspecified (principal) | CPT/HCPCS: 70450; 71045 ==

== ENCOUNTER → 2025-03-22 19:44 | Outpatient (BNV) | payer MEDICARE, SELFPAY | PROVIDERS: Emergency Provider Emergency Medicine Emergency Medical Services; PCP Internal Medicine; Visit Provider Internal Medicine | DX: I48.92 Unspecified atrial flutter (principal); I44.0 Atrioventricular block, first degree | CPT/HCPCS: 93010 ==

== ENCOUNTER → 2025-03-23 | Outpatient (BNV) | payer MEDICARE, SELFPAY | PROVIDERS: PCP Internal Medicine; Visit Provider Radiology Diagnostic Radiology | DX: R47.01 Aphasia (principal) | CPT/HCPCS: 70496; 70498 ==

== ENCOUNTER 2025-03-25 18:52 | Emergency (ER) | payer MEDICARE, SELFPAY ==
--- NOTE | 2025-03-25 | ECG_ITS ---
Test Reason : ALTERED MENTAL STATUS Blood Pressure : */* mmHG Vent. Rate : 77 BPM Atrial Rate : 227 BPM P-R Int : * ms QRS Dur : 100 ms QT Int : 344 ms P-R-T Axes : 83 -64 -75 degrees QTcB Int : 389 ms Atrial flutter with variable A-V block Pulmonary disease pattern Left anterior fascicular block Minimal voltage criteria for LVH, may be normal variant ( Greene product ) Nonspecific ST and T wave abnormality Abnormal ECG When compared with ECG of 22-Mar-2025 20:05, QT has shortened Referred By: Generic ED Physician Electronically Signed By: SAMMY ARROYO MD
--- NOTE | ~2025-03-25 | CT_ITS ---
CLINICAL HISTORY: Status post liver transplant leukocytosis CKD CT abdomen and pelvis without contrast Comparison: 06/23/2022 Findings: The lung bases are clear. Surgical clips in the region of the nany hepatis and posterior to the right lobe of the liver. Dilated left gonadal veins. Left gonadal vein is dilated to 3.8 cm in diameter, similar to prior, series 7, image 46. There is a large collateral from the splenic vein to the gonadal vein. There is a focal low-attenuation area in the posterior right lobe of the liver measuring 5.6 x 2.1 x 6.0 cm. There is a right adrenal mass consistent with an adrenal adenoma measuring 2.2 cm in diameter and 0 Hounsfield units. Spleen has a markedly lobulated appearance and measures 13 cm in length. Left adrenal gland, pancreas and kidneys are unremarkable. No hydronephrosis. The gallbladder is absent. No bowel obstruction, pneumoperitoneum, or pneumatosis. There is a unchanged lower abdominal wall ventral hernia containing loops of small bowel with a wide neck without evidence of bowel obstruction or strangulation. Pelvic contents unremarkable. Normal appendix. Uterus is absent. Central height loss at L4 and L5 which appear chronic. Multilevel degenerative change of the lumbar spine. IMPRESSION: 1. 5.6 x 2.1 x 6.0 cm new low-attenuation structure in the posterior right lobe of the liver is indeterminate. Differential includes cyst, abscess, contusion as well as others. 2. 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 3. Right adrenal adenoma, Unchanged. 4. Findings consistent with previous hepatic transplant. This document has been electronically signed by: Gerardo Madrid MD on 03/25/2025 23:24:59
[2025-03-25 19:06] VITALS: BP 128/69; PULSE 100; O2SAT 97
[2025-03-25 19:07] VITALS: BP 140/76; PULSE 93; RESP 16; TEMP 36.9; O2SAT 98; BMI 30.6
[2025-03-25 19:26] LABS: Hematocrit 35.5 % (37.0-47.0); Hemoglobin 12.2 g/dl (12.0-16.0); Mean Corpuscular HGB Conc 34.4 g/dl (31.0-35.0); Mean Corpuscular Hemoglobin 30.5 pg (27.0-33.0); Mean Corpuscular Volume 88.8 fL (80.0-98.0); NRBC Abs Auto 0.000 X10*3/uL (0.0-0.012); NRBC Pct Auto 0.0 /100WBC (0.0-0.2); Platelet Count 223 X10*3/uL (160-400); Red Blood Count 4.00 X10*6/uL (4.20-5.50); White Blood Count 19.8 X10*3/uL (4.8-10.8)
--- OUTSIDE RECORDS SUMMARY | 2025-03-25 19:33 | XMS_ITS | Data Portability ---
Author Organization [facility], Telehealth Patient Home Address [address] [place] [address] Assessment No assessment recorded. Plan of Treatment Reminders Order Date Submit Date Provider Last Modified By Organization Details Last Modified Time Details Appointments Hospital F/U 2024 03:00P M TRINO ZARAGOZA Not available Not available Not available FOLLOW UP 15 2024 02:15P M TRINO ZARAGOZA Not available Not available Not available Lab urinalysi s complete, reflex culture 2023 024 [facility] Lab Draw Station, Formerly [facility] [address] [place], [address], 04/22/2024 11:47:21 Referral None recorded. Procedures None recorded. Surgeries None recorded. Imaging XR, lumbosacr al spine, 2 or 3 view [address] (Imaging), [address] [place] [address], [id number], 03/21/2025 15:30:24 US, abdomen + pelvis [address] (Imaging), [address] [place] [address], [id number], 03/13/2024 09:24:06 Medication Orders prednison e 20 mg tablet 2024 025 [facility]/Pharmacy #[id number], [address] [facility] [place], [address], 03/21/2025 14:27:02 baclofen 20 mg tablet 2024 025 [facility]/Pharmacy #[id number], [address] [facility] [place], [address], 03/21/2025 14:27:40 ondansetr on HCl 4 mg tablet 2024 025 [facility]/Pharmacy #[id number], [address] [facility] [place], [address], 01/20/2025 14:38:58 Bactrim DS 800 mg-160 mg tablet 2024 025 [facility]/Pharmacy #[id number], [address] [place], [address], 03/21/2025 14:11:13 Patient TargetsNo targets recorded. Patient InstructionsNo instructions recorded. Reason for Referral None Reported. Results Created Date Observation Date Name Description Value Unit Range Abnormal Flag Note LastModifiedBy Organization Detail LastModifiedTime 03/22/20 25 03/22/2025 CT, angio gram, head + neck, w/wo contr ast No observ ation record ed. [facility] (Medical Records) [address] [place] [address], [address], 03/24/2025 08:34:55 03/22/20 25 03/22/2025 XR, chest , 2 view No observ ation record ed. [address] (Medical Records) [address] [place], [address], 03/23/2025 08:43:57 03/22/20 25 03/22/2025 XR, chest , 2 view No observ ation record ed. [address] (Medical Records) [address] [place], [address], 03/23/2025 08:44:22 03/23/20 25 03/23/2025 CT, angio gram, head + neck, w/wo contr ast No observ ation record ed. [facility] (Medical Records) [address] [facility], [place], [address], 03/24/2025 08:34:41 Result Notes None recorded. Problems Name Problem SNOMED Code Status Onset Date Resolution Date Notes Provider Name and Address Organization Details Recorded Time Splenic infarcti on 52588915 Active 2021 Not Available [facility] 2 17:56:09 Portal vein thrombos is 55314501 Active 2021 Not Available [facility] 2 17:56:09 Pressure ulcer Active 2021 Not Available [facility] 2 17:56:09 Edema of lower extremit y 110936746 Active 2021 Not Available [facility] 2 17:56:09 Gastroes ophageal reflux disease 072681504 Active 2021 Not Available [facility] 2 17:56:09 Type 2 diabetes mellitus 48112507 Active 2017 Not Available [facility] 2 17:56:09 Hypothyr oidism 18178460 Active 2017 Not Available [facility] 2 17:56:09 Hypercho lesterol emia 05163739 Active 2017 Not Available [facility] 2 17:56:09 Acid reflux 948060060 Active 2017 Not Available [facility] 2 17:56:09 [facility] hyperten eric 15700287 Active 2017 Not Available [facility] 2 17:56:09 Pulmonar y hyperten eric 05385080 Active 2017 Not Available [facility] 2 17:56:09 Sarcoido sis 24838667 Active 2017 Dr. Kiera Reed Not Available [facility] 2 17:56:09 Atrial fibrilla tion 65526219 Active 2017 Not Available [facility] 2 17:56:09 Esophage al varices 12974845 Active 2017 Not Available [facility] 2 17:56:09 Adrenal adenoma 969747041 Active 2017 Not Available [facility] 2 17:56:09 Steatoti c liver disease 939565674 Active 2017 Not Available [facility] 2 17:56:09 Chronic kidney disease stage 3 278147762 Active 2021 Not Available [facility] 2 17:56:09 Vasculit is of the skin 66935174 Active 2021 Not Available [facility] 2 17:56:09 Transpla nted liver present 356898839 Active 2022 TRINO ZARAGOZA [address] [place], [address], [facility] 3 14:21:59 Intermit tent claudodessa tieduardo 41683113 Active 2022 TRINO ZARAGOZA [address] [place], [address], [facility] 3 16:01:13 Peripher al venous insuffic iency 58314620 Active 2022 TRINO ZARAGOZA [address] [place], [address], [facility] 3 16:01:43 Skin ulcer 74830374 Active 2022 TRINO ZARAGOZA [address] [place], [address], [facility] 3 16:04:37 Transpla ntation of liver Active 2022 TRINO ZARAGOZA [address] [place], [address], [facility] 3 16:07:06 Insomnia 000017330 Active 2022 TRINO ZARAGOZA [address] [place], [address], [facility] 3 14:53:51 Trigger finger of right hand 44500381685 142806 Active 2022 TRINO ZARAGOZA [address] [place] [address], [address], [facility] 3 16:07:03 Tendinit is of left gluteal tendon 93649544471 9108 Active 2022 TRINO ZARAGOZA [address] [place] [address], [address], [facility] 3 16:10:56 Candidia sis of skin 07833698 Active 2022 TRINO ZARAGOZA [address] [place] [address], [address], [facility] 3 16:21:15 Asthma 791344282 Active 2023 TRINO ZARAGOZA [address] [place] [address], [address], [facility] 4 14:52:04 Lipoma of back 385094354 Active 2023 TRINO ZARAGOZA [address] [place] [address], [address], [facility] 4 15:09:55 Peripher al vascular disease 286936037 Active 2023 TRINO ZARAGOZA [address] [place] [address], [address], [facility] 4 11:21:48 Acute urinary tract infectio n 426104429 Active 2023 TRINO ZARAGOZA [address] [place] [address], [address], [facility] 4 11:22:05 Lesion of liver 977616033 Active 2023 TRINO ZARAGOZA [address] [place] [address], [address], [facility] 4 11:26:53 Abdomina l pain 40196561 Active 2023 TRINO ZARAGOZA [address] [place] [address], [address], [facility] 4 14:39:40 Palpitat ions 63507424 Active 2024 TRINO ZARAGOZA [address] [place] [address], [address], [facility] Internal [facility] 14:42:29 Nausea 829638710 Active 2024 TRINO ZARAGOZA [address] [place] [address], [address], [facility] Internal [facility] 14:38:52 Typical atrial flutter 590472825 Active 2024 TRINO ZARAGOZA [address] [place] [address], [address], [facility] 14:45:06 Acute back pain with sciatica 585616135 Active 2024 TRINO ZARAGOZA [address] [place] [address], [address], [facility] 14:24:30 Notes:Some problems listed i n Documents: #[id number], #[id number] could not be added to this patient's chart. Please review these documents and add these problems to the patient's chart manually as needed. Problem Notes None recorded. Procedures Surgical History Date Name Laterality Status Provider Name and Address Organization Details Recorded Time 03/04/20 19 I&D completed Marina BASILIA Martino [address] [place] [address], [address], [facility] 03/04/2019 14:43:51 02/23/20 19 I&D completed Marina BASILIA Martino [address] [place] [address], [address], [facility] 02/22/2019 15:12:47 Partial Hysterectomy completed Neva Strong NP, S [address] [place] [address], [address], [facility] 06/22/2018 15:38:16 Imaging Results None recorded. Procedure Notes None recorded. Medical Equipment None Reported. Allergies Allergen ID Allergen Name Allergen Category Reaction Reaction Severity Criticality Documentation Date Start Date Code Code System Note Provider Name and Address Organization Details Recorded Time 481 lisinopri l medicatio n Not available Not available Not available 12/05/2017 85334 RxNorm Seble rodriguez [facility] 8 11:41:04 482 Augmentin medicatio n Not available Not available Not available 12/05/2017 57779 2 RxNorm December Salena, BASILIA [address] [place], [address], [facility] 9 16:14:00 486 tramadol medicatio n Not available Not available Not available 12/05/2017 54903 RxNorm Seble rodriguez [facility] 8 12:05:04 488 Reglan medicatio n Not available Not available Not available 12/05/2017 9230 RxNorm Seble rodriguez [facility] Internal [facility] 8 12:05:35 Medications Name Sig Start Date [...] 200 mg tablet,exte nded release 24 hr 03/21 completed Not Available Not Available Not Available ondansetron HCl 4 mg tablet TAKE 1 TABLET EVERY 4-6 HOURS BY ORAL ROUTE NEEDED FOR 90 DAYS. active Not Available Not Available No t Available prednisone 20 mg tablet Take 1 tablet every day by oral route as directed for 7 days. 2024 active Not Available Not Available Not Avai lable lovastatin 40 mg tablet TAKE 1 TABLET [...] MOUTH EVERY 12 HOURS FOR 5 DAYS 03/21 completed Not Available Not Available Not Available [...] completed Not Available Not Available Not Available baclofen 20 mg tablet Take 1 tablet twice a day by oral route as needed for 7 days. 2024 active Not Available Not Available Not Avai lable Synthroid 175 mcg tablet Take 1 tablet [...] 2 TIMES A DAY FOR 2 DAYS. 03/21 completed Not Available Not Available Not Available [...] Available digoxin 62.5 mcg (0.0625 mg) tablet Take 1 tablet every day by oral route. active Not Available Not Available No t Available Jardiance 10 mg tablet 11/13 completed Not Available Not Available Not Available Trulicity 1.5 mg/0.5 mL subcutaneou s pen injector Inject 0.5 mL every week by subcutane ous route. 11/25 completed Not Available Not Available Not Available Trulicity 0.75 mg/0.5 mL subcutaneou s pen injector INJECT 0.5 ML (0.75 MG TOTAL) UNDER THE SKIN EVERY 7 DAYS active Not Available Not Available No t Available Asmanex HFA 200 mcg/actuati on aerosol [...] 4 DOSES OF 2.5 MG IF TOLERATED 03/21 completed Not Available Not Available Not Available Mounjaro 2.5 mg/0.5 mL subcutaneou s pen injector INJECT 2.5 MG UNDER THE SKIN ONCE A WEEK FOR 28 DAYS. 03/21 completed Not Available Not Available Not Available Vitals Date Recorded Body height Heart rate Oxygen saturation Oxygen saturation in Arterial blood by Pulse oximetry Systolic blood pressure Diastolic blood pressure Provider Name and Address Organization Details Last Updated DateTime 5 171.45 cm 132 /min 88 % 88 % 124 mm[Hg] 80 mm[Hg] Mayra Narayanan MA - [facility] 5 14:36:29 Date Recorded Body height Body mass index (BMI) Body weight Heart rate Oxygen saturation Oxygen saturation in Arterial blood by Pulse oximetry Systolic blood pressure Diastolic blood pressure Provider Name and Address Organization Details Last Updated DateTime 5 171.45 cm 34 kg/m2 94112.6 8 g 38 /min 96 % 96 % 148 mm[Hg] 82 mm[Hg] Mayra Narayanan [facility] 5 14:26:53 Date Recorded Body height Body mass index (BMI) Body weight Heart rate Oxygen saturation Oxygen saturation in Arterial blood by Pulse oximetry Systolic blood pressure Diastolic blood pressure Provider Name and Address Organization Details Last Updated DateTime 4 171.45 cm 32.9 kg/m2 05930.1 7 g 114 /min 96 % 96 % 130 mm[Hg] 72 mm[Hg] Bekah Hart [facility] 4 14:24:08 Date Recorded Body height Body mass index (BMI) Body weight Oxygen saturation Oxygen saturation in Arterial blood by Pulse oximetry Provider Name and Address Organization Details Last Updated DateTime 03/21/2025 171.45 cm 32.7 kg/m2 38267.3 g 98 % 98 % Kerri Peters [facility] 5 14:17:36 Date Recorded Body height Body mass index (BMI) Body weight Heart rate Oxygen saturation Oxygen saturation in Arterial blood by Pulse oximetry Systolic blood pressure Diastolic blood pressure Provider Name and Address Organization Details Last Updated DateTime 4 171.45 cm 34.5 kg/m2 080865. 54 g 121 /min 99 % 99 % 128 mm[Hg] 84 mm[Hg] Mayra Narayanan [facility] 4 14:26:54 Social History Question Answer Notes LastModified by Organizat ion Details LastModified Time Tobacco Smoking Status Former Smoker Seble rodriguez [facility] 01/22/2018 09:03:51 What Was The Date Of Your Most Recent Tobacco Screening? 03/21/2025 [email or web address] Information not available 03/21/2025 Sex: Unknown Functional Status Question Answer Note [...] 50 mcg/0.25mL dose 1 completed Not Available [facility] 10/27/2023 13:24:45 COVID-19, mRNA, LNP-S, PF, 100 mcg/0.5mL dose or 50 mcg/0.25mL dose 1 completed Not Available [facility] 10/27/2023 13:24:45 Tdap 0 completed Not Available [facility] 10/27/2023 13:24:45 COVID-19, mRNA, LNP-S, PF, 30 mcg/0.3 mL dose 1 completed Not Available [facility] 10/27/2023 13:24:45 Hep B, unspecified formulation 1 completed Not Available [facility] 10/27/2023 13:24:45 Influenza, split virus, quadrivalent, preservative 1 completed Not Available [facility] 10/27/2023 13:24:45 Past Encounters Encounter ID Performer Location Encounter Start Date Encounter Closed Date Diagnosis/Indication Diagnosis SNOMED-CT Code Diagnosis ICD10 Code Diagnosis Note [id number] DO [facility] [address] [facility],[place] [address] 01/22/2018 08:53:35 01/22/2018 10:08:56 Calcific tendinitis of shoulder 03524944 M75.31 Insulin tr eated type 2 diabetes mellitus 412968377 Z79.4 stable, follow Shoulder joint pain 2679 19511 M25.519 Essential hypertension 98609132 I10 stable [id number] Tony Toure [facility] [address] [facility],[place] [address] 02/14/2018 09:02:06 02/16/2018 09:30:37 Tick bite 11745129 S30.861A Paroxysmal atrial fibrillation 395474175 I48.0 stable with eliquis, flecainide await appt in [facility] keep appt next week with DR. Bach be seen urgently if A-fib recurs and is persistant Type 2 luciano betes mellitus 44136638 E11.9 follow Essential hypertension 37607021 I10 well controlled [id number] Tony Toure [facility] [address] [facility],[place] [address] 04/13/2018 09:00:10 04/13/2018 09:44:20 Hypomagnesemia 823588905 E83.42 Type 2 luciano betes mellitus 06561386 E11.9 follow Paroxysmal atrial fibrillation 280637086 I48.0 stable Hypothyroidism 08340242 E03.9 Essential hypertension 35928758 I10 well controlled Hypercholesterolemia 136 34978 E78.00 [id number] Tony Toure [facility] [address] [facility] [place] [address] 05/15/2018 11:42:51 05/15/2018 12:22:09 Esophageal varices 69733572 I85.00 recent banding Atrial fibrillation 4943 6004 I48.91 on eliquis Essential hypertension 14517927 I10 well controlled Dehydration 43846205 E86 .0 resolved [place] [id number] Tony Toure [facility] [address] [facility], [place]e [facility] [address] 06/22/2018 14:59:39 06/22/2018 16:24:53 Chronic pelvic pain of female 282945673 R10.2 Esophageal varices 58585 008 I85.00 scheduled for third banding next week Type 2 luciano betes mellitus 81105584 E11.9 A1C 7.6 [id number] Tony Toure [facility] [address] [facility],[place] [address] 07/17/2018 09:12:56 07/20/2018 08:36:51 Hypercholesterolemia 87705248 E78.00 Esophageal varices 78009 008 I85.00 banding last week with f/u in 2 weeks Hypothyroidism 44124577 E03.9 Type 2 luciano betes mellitus 78016489 E11.9 A1C 7.6 Essential hypertension 35428068 I10 well controlled Hypomagnesemia 155602782 E83.42 Acute cystitis 29879100 N30.00 [id number] Tony Toure [facility] [address] [facility],[place] [address] 08/03/2018 14:20:10 08/03/2018 15:49:59 Hypomagnesemia 451240217 E83.42 Doing labs today after visit Esophageal varices 68009 008 I85.00 3 bands 07/25- follow Atrial fibrillation 4943 6004 I48.91 on eliquis Essential hypertension 51159774 I10 well controlled , continue off olmesartan [id number] Tony Toure [facility] [address] [place] [address] 09/11/2018 15:42:46 09/14/2018 11:18:25 Acute cystitis 34752694 N30.00 Pain of [facility] 24938692 M25.519 rest, prn ice, call if persistent [id number] Tony Toure [facility] [address] [facility],[place] [address] 11/14/2018 13:43:31 11/14/2018 15:09:29 Type 2 diabetes mellitus 66710177 E11.9 follow Esophageal varices 50331 008 I85.00 banded Atrial fibrillation 4943 6004 I48.91 on eliquis Hypercholesterolemia 136 64487 E78.00 Hypothyroidism 30955020 E03.9 Essential hypertension 23592884 I10 well controlled , Diarrhea 93168363 R19.7 Eczema 20225661 L30.9 OTC eucerin BID, Tony Toure [facility] [address] [facility],[place] [address] 02/11/2019 13:57:01 02/11/2019 15:01:26 Abscess 285178880 L02.91 too swollen for proc today will give abx warm compress and gentle massage schedule i&d for next week Jaundice 66123484 R17 very mild has liver and gi specialist . seeing gi next week. seeing liver specialist in february for upper and lower endoscopy Metabolic dysfunction-associate d steatohepatitis 383618406 K75.81 check u/s for ascites written order for ab u/s Dyspnea on exertion 6084 5006 R06.09 written order for cxr [id number] Tony Toure [facility] [address] [facility],[place] [address] 02/22/2019 14:14:29 02/22/2019 15:22:55 Abscess 076584673 L02.91 attempted to numb with 1.5 cc of lidocaine, but abscess was too swollen for complete anesthesia used 18 guage needle to create opening of which copious discharge was expressed will give additional week of abx warm compress and gentle massage schedule repeat i&d for next week Jaundice 03591649 R17 not apparent today has liver and gi specialist . seeing gi next week. seeing liver specialist in february for upper and lower endoscopy Metabolic dysfunction-associate d steatohepatitis 247751810 K75.81 await us Dyspnea on exertion 6084 5006 R06.09 [place] [id number] Tony Toure [facility] [address] [facility],[place] [address] 03/04/2019 14:01:30 03/04/2019 15:25:18 Abscess 993920778 L02.91 f/u as planned the , sooner if needed Jaundice 73644512 R17 not apparent today has liver and gi specialist . seeing gi next week. seeing liver specialist in february for upper and lower endoscopy Metabolic dysfunction-associate d steatohepatitis 307853283 K75.81 await us results pt had us done last week Dyspnea on exertion 6084 5006 R06.09 xr was clear will reevaluate at fu Submammary intertrigo 24 1736708 L30.4 [id number] Tony Toure [facility] [address] [facility],[place] [address] 03/13/2019 14:16:29 03/13/2019 14:37:51 Type 2 diabetes mellitus 92118701 E11.9 sees endocrinol ogy every 3 months will get labs with endo Esophageal varices 59030 008 I85.00 banded having endoscopy on 03/27 for another banding if needed Atrial fibrillation 4943 6004 I48.91 on eliquis Hypercholesterolemia 136 39574 E78.00 on lovastatin Hypothyroidism 27129292 E03.9 normal in january 2019 Essential hypertension 14252663 I10 well controlled , Diarrhea 26197826 R19.7 resolved Eczema 09809348 L30.9 resolved Insomnia 236684052 G47.0 0 rare use of lorazepam maybe once per month Vitamin D deficiency 347 97951 E55.9 [id number] Tony Toure [facility] [address] [facility],[place] [address] 05/21/2019 11:45:40 05/21/2019 12:20:38 Chronic tension-type headache 129904469 G44.229 ? stress related seem to be improving Type 2 luciano betes mellitus 16907634 E11.9 sees endocrinol ogy every 3 months will get labs with endo Essential hypertension 66573002 I10 well controlled [id number] Tony Toure [facility] [address] [facility],[place] [address] 06/04/2019 16:00:31 06/04/2019 16:31:49 Type 2 diabetes mellitus 79852401 E11.9 sees endocrinol ogy every 3 months will get labs with endo Essential hypertension 66127472 I10 well controlled Temporal headache 026571 06 R51 Acute sinusitis 62661870 J01.90 will consider medrol dose pack if esr is normal may also consider flonase [id number] Tony Toure [facility] [address] [facility], [place] [address] 07/15/2019 13:28:27 07/15/2019 14:30:04 Type 2 diabetes mellitus 89862511 E11.9 sees endocrinol ogy every 4 months will get labs with endo gets foot exa with endo had dm eye exam in september, due again in september Esophageal varices 61828 008 I85.00 banded had endo/cscop e 7/3 all normal Atrial fibrillation 4943 6004 I48.91 on eliquis Hypercholesterolemia 136 90357 E78.00 on lovastatin will have labs with endo Hypothyroidism 68920825 E03.9 normal in january 2019 Essential hypertension 48369320 I10 well controlled Insomnia 563593640 G47.0 0 using 2-3 times per week not sleeping well having trouble falling asleep lorazepam only helps intermitte ntly sometimes takes tylenol and that helps Body mass index 30+ - obesity 307562280 Z68.34 Active or passive immunization 764074613 Z23 had flu shot due for tdap next year Frontal headache 0173140 05 R51 [id number] Tony Toure DO [facility] [address] [facility],[place] [address] 11/13/2019 15:00:05 11/13/2019 16:22:05 Type 2 diabetes mellitus 74908740 E11.9 sees endocrinol ogy every 4 months will get labs with endo gets foot exa with endo had dm eye exam in september, due again in september Esophageal varices 27783 008 I85.00 banded had endo/cscop e 7/3 all normal Atrial fibrillation 4943 6004 I48.91 on eliquis Hypercholesterolemia 136 97927 E78.00 on lovastatin will have labs with endo Hypothyroidism 82232025 E03.9 normal in january 2019 labs with endo usually Essential hypertension 33249740 I10 well controlled Insomnia 170079131 G47.0 0 sleeping better very rare need for lorazepam, maybe once a month Body mass index 30+ - obesity 126881498 Z68.34 Nausea 659854478 R11.0 try tums, evaluate diet if sx worsen consider f/u with gi Dizziness 522673302 R42 monitor, very mild Fatigue 79421777 R53.83 will see endo for that as well Vitamin D deficiency 347 80854 E55.9 Edema of l ower extremity 321377955 R60.0 she is on spironolac tone/lasix for liver started by GI seems likely it was related to diet already improving continue to monitor weights daily and call if increasing [id number] Tony Toure DO [facility] [address] [facility] [address] 02/26/2020 10:48:59 02/26/2020 11:34:18 Nausea and vomiting 72340227 R11.2 patient reports loss of appetite and vomiting for the last week [id number] Tony Toure DO [facility] [address] [facility], [place] [address] 03/13/2020 15:32:36 03/13/2020 16:22:32 Atrial fibrillation 53723624 I48.91 stable Hepatic encephalopathy 32097721 K72.90 the patient reports brain fog Hepatorenal syndrome 512 83736 K76.7 will check ammonia level in the body and see how it is doing Jaundice 80075722 R17 pt is still jaundiced [id number] Tony Toure DO [facility] [address] [facility], [place] [address] 06/05/2020 10:38:36 06/05/2020 14:21:19 Hepatic failure 41556789 K72.90 will recheck ammonia level if better can stop the lactulose and just monitor Acid reflux 744365495 K2 1.9 will try taking omeprazole in the morning and see if improvemen t can take two if needed Type 2 luciano betes mellitus 28306787 E11.9 stable per last blood draw [id number] Tony Toure DO [facility] [address] [facility], [place] [address] 08/25/2020 14:10:45 08/25/2020 14:58:53 Hypercholesterolemia 97661679 E78.00 will check cholestero l Atrial fibrillation 4943 6004 I48.91 stable Essential hypertension 30452984 I10 BP excellent today Type 2 luciano betes mellitus 10496170 E11.9 consulting with cardiology on adjustment s [id number] Tony Toure DO [facility] [address] [facility],[place] [address] 11/25/2020 13:27:35 11/25/2020 14:57:41 Essential hypertension 35046084 I10 BP excellent today will need to fu with her cardiologi st Atrial fibrillation 4943 6004 I48.91 may be having runs of afib due to the fact her medication Type 2 luciano betes mellitus 32030338 E11.9 consults with endo with A1c measuremen t will need to fu with them for BW Hypothyroidism 95668805 E03.9 will fu with endo tomorrow for lab work Depressive disorder 3548 9007 F32.9 will start on sertraline and fu to see how she is doing [id number] Tony Touer [facility] [address] [facility],[place] [address] 01/04/2021 09:44:57 01/04/2021 10:38:55 Atrial fibrillation 84692897 I48.91 the patient was told by ER that she was having atrial fibrillati on Pain of ri ght hip joint 9571303686 19819 M25.551 possible back or hip pain XR lumbar spine normal at specialist told by specialist given liver failure safest thing to take is vicodin or percocet [id number] Tony Toure [facility] [address] [facility],[place] [address] 04/07/2021 15:22:16 04/07/2021 15:56:03 Type 2 diabetes mellitus 27501289 E11.9 consults with endo with A1c measuremen t will need to fu with them for BW Atrial fibrillation 4943 6004 I48.91 the patient was told by ER that she was having atrial fibrillati on Essential hypertension 99817028 I10 BP excellent today will need to fu with her cardiologi st Hepatic failure 89673100 K72.90 will recheck ammonia level if better can stop the lactulose and just monitor Varicose v eins of lower extremity 10112392 I83.893 discussed US duplex for her varicose veins to see the extenttold patient to wear compressio n stockings Intermitte nt claudication 03189518 I73.9 will start with US duplex Steatotic liver disease 033381127 K76.0 has fu with specialist [id number] Tony Toure [facility] [address] [facility] [place] [address] 07/14/2021 14:36:41 07/14/2021 15:35:20 Hypercholesterolemia 35113681 E78.2 recent check Abdominal mass 936684957 R19.02 will fu with US Type 2 luciano betes mellitus 68381716 E11.9 consults with endo with A1c measuremen t will need to fu with them for BW Steatotic liver disease 235280415 K76.0 has fu with specialist Atrial fibrillation 4943 6004 I48.0 stable Chronic he patic failure 534764300 K72.10 on transplant list, follows Hepatic encephalopathy 89508374 K72.10 stable on lactulose with recent test [id number] Tony Toure DO [facility] [address] [facility], [place] [address] 08/18/2021 10:18:23 08/18/2021 12:37:00 Splenic infarction 47035694 D73.5 fu with [facility] Portal vei n thrombosis 36820009 I81 will fu with endo Atrial fibrillation 4943 6004 I48.0 stable Esophageal varices 39216 008 I85.00 has fu with endo to check for bleeds and if switch from Steatotic liver disease K76.0 has fu with specialist as well [id number] Tony Toure DO [facility] [address] 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 724161250 K72.90 back on lactulose and doing much better [facility] re need to be diligent with meds while waiting for transplant [id number] Tony Toure DO [facility] [address] [facility],[place] [address] 10/22/2021 08:46:19 10/22/2021 15:45:16 Atrial fibrillation 25504071 I48.0 stable Chronic he patic failure 046979154 K72.10 on transplant list, follows Esophageal varices 37437 008 I85.00 monitoring her bleeding Essential hypertension 66707710 I10 BP excellent today will need to fu with her cardiologi st [id number] Tony Toure [facility] [address] [facility],[place] [address] 12/06/2021 14:29:25 12/06/2021 15:01:19 Hypothyroidism 45411719 E03.9 Type 2 luciano betes mellitus 55097343 E11.9 will be rech and get a1c and will be seeing her in november Atrial fibrillation 4943 6004 I48.0 quiet and asymptomat ic Essential hypertension 86059799 I10 quiet and stable Chronic he patic failure 886972840 K72.10 still waiting for liver transplant Fatigue 99793734 R53.83 58292 Tnoy Toure [facility] [address] [facility],[place] [address] 01/31/2022 11:18:52 01/31/2022 12:07:22 Pressure ulcer 096155510 L89.899 will start on silvadene cream Candidiasis of skin 4988 3006 B37.2 given topical anti-funga l at home Atrial fibrillation 4943 6004 I48.0 stablestop ping eliquis and starting warfarin from specialist [id number] Tony Toure [facility] [address] [facility],[place] [address] 03/02/2022 11:40:03 03/02/2022 16:36:21 Atrial fibrillation 20030460 I48.0 stable Edema of l ower extremity 262640074 R60.0 will increase lasix to 30 mg and recheck a CMP Gastroesop hageal reflux disease 347292221 K21.9 will fu with omeprazole Cirrhosis of liver 007 K74.02 will recheck her ammonia level [id number] Tony Toure [facility] [address] [facility],[place] [address] 04/01/2022 14:20:42 04/01/2022 15:36:34 Type 2 diabetes mellitus 13032439 E11.9 consults with endo with A1c measuremen t will need to fu with them for BW Essential hypertension 82512612 I10 BP excellent today will need to fu with her cardiologi st Cough 41243720 R05.1 will give mala perkinses for cough Chronic ki dney disease stage 3 295970683 N18.31 will recheck CMP in two weeks after increase of lasix Edema of l ower extremity 746843686 R60.0 will increase lasix to 40mg and recheck a CMP [id number] Tony Toure [facility] [address] [facility],[place] [address] 06/22/2022 13:28:15 06/22/2022 14:25:21 Atrial fibrillation 02782164 I48.0 stableneed s refill warfarin Chronic ki dney disease stage 3 522947427 N18.31 stable Cirrhosis of liver 55179 007 K74.02 stable [id number] Tony Toure [facility] [address] [facility],[place] [address] 07/29/2022 14:42:13 08/01/2022 09:09:56 Vasculitis of the skin 18176978 L95.8 fu in two weeks Internatio nal normalized ratio above reference range 543034654 R79.1 monitor through clinic [id number] Tony Toure [facility] [address] [facility],[place] [address] 10/28/2022 08:24:24 10/28/2022 14:45:46 Atrial fibrillation 23345397 I48.0 stableback on eliquis Hypothyroidism 22932164 E03.8 will f/u with endo tomorrow for lab work Type 2 luciano betes mellitus 63005316 E11.9 consults with endo with A1c measuremen t Essential hypertension 84885363 I10 BP excellent today will need to fu with her cardiologi st Advance care planning 71 9887637 Z71.89 on file Active or passive immunization 177411552 Z23 patient advised she is due for flu shot, tdap & shingles Chronic ki dney disease stage 3 153266136 N18.31 stable Chronic he patic failure 392326653 K72.10 on transplant list, follows Transplant ed liver present 287526797 Z94.4 doing really well [id number] Tony Toure [facility] [address] [facility], [place] [address] 01/25/2023 16:20:44 01/25/2023 17:00:20 Edema of lower extremity 253581989 R60.0 will fu with transplant surgeon [id number] Tony Toure [facility] [address] [facility], [place] [address] 02/07/2023 15:32:41 02/07/2023 17:23:08 Edema of lower extremity 582691444 R60.0 agreed to US venous and US arterial Splenic infarction 25191 003 D73.5 fu with [facility] Chronic ki dney disease stage 3 132099063 N18.31 stable Intermitte nt claudication 32560072 I73.9 will start with US duplex Peripheral venous insufficiency 99360271 I87.2 will set up with both duplex and venous Skin ulcer 75951017 L98. 491 will set up with US arterial and US duplex Transplant ed liver present 763012183 Z94.4 doing really well [id number] Tony Toure [facility] [address] [facility],[place] [address] 05/16/2023 08:00:07 05/16/2023 16:05:24 Portal vein thrombosis 61334303 I81 will fu with endo Splenic infarction 04542 003 D73.5 fu with [facility] Atrial fibrillation 4943 6004 I48.0 stableback on eliquis Essential hypertension 96721598 I10 BP excellent today will need to fu with her cardiologi st Gastroesop hageal reflux disease 273184961 K21.9 will fu with omeprazole Hypercholesterolemia 136 26244 E78.2 recent check Hypothyroidism 13704789 E03.8 fu with endo Intermitte nt claudication 58880198 I73.9 stable Pulmonary hypertension 49879225 I27.0 stable [id number] Tony Toure [facility] [address] [facility] [place] [facility] [place] [address] 08/21/2023 15:35:21 08/21/2023 16:41:53 Trigger finger of right hand 2933006620 0672876 M65.311 will set up with ortho Tendinitis of left gluteal tendon 4086499801 50334 M76.02 told her to use a cushion or get a new chair Candidiasis of skin 4988 3006 B37.2 will have her use her nystatin on her left armpit [id number] Tony Toure [facility] [address] [facility] [place], [place] 7 12/01/2023 14:15:39 12/01/2023 15:28:21 Atrial fibrillation 71960952 I48.0 stableback on eliquis Asthma 742818919 J45.40 needs alt to flovent Essential hypertension 39461695 I10 f/u with her cardiologi st Candidiasis of skin 4988 3006 B37.2 stablewill take over the ketoconazo le cream Lipoma of back 365427544 D17.1 will monitor [id number] Tony Toure [facility] [address] [facility], it[place] [facility] [address] 02/06/2024 10:59:49 02/06/2024 11:45:50 Depression screening 143263520 Z13.31 stable Acute urin sachin tract infection 740517461 N39.0 will start on amoxicilli n Lesion of liver 45596309 0 K72.10 stable Type 2 luciano betes mellitus 98181647 E11.9 consults with endo with A1c measuremen t Transplant ed liver present 949029204 Z94.4 doing really well Peripheral vascular disease 670239874 I73.9 stable Pulmonary hypertension 92582162 I27.0 stable Chronic ki dney disease stage 3 784701655 N18.31 stable Skin ulcer 53159869 L98. 491 stable [id number] Tony Toure [facility] [address] [facility] [address],[place] [address] 03/12/2024 14:17:11 03/13/2024 09:24:06 Depression screening 532533729 Z13.31 stable Abdominal pain 64043300 R10.10 agreed to US abd and pelviswill r/o any other causes for the upper abdominal and pelvic discomfort s/p surgeryhas not had an imaging since November last year to recheck the area Acute urin sachin tract infection 240160060 N39.0 will set up with a recheck her urine to make sure resolution of the utiagreed to this [id number] Tony Toure [facility] [address] [facility],[place] [address] 06/26/2024 14:17:27 06/26/2024 14:58:48 Chronic kidney disease stage 3 642171076 N18.31 stable Hypothyroidism 57073753 E03.8 f/u with endo in October Type 2 luciano betes mellitus 55506476 E11.9 consults with endo in [id number] Tony Toure [facility] [address] [facility], [place] [address] 10/04/2024 14:12:33 10/04/2024 15:06:54 Acute urinary tract infection 535093292 N10 switch out to an alternativ e abx Transplant ed liver present 845445367 Z94.4 elevated creatinine , monitored by her transplant team Palpitations 18509021 R0 0.2 cardio ordered a 2 day holter monitor Atrial fibrillation 4943 6004 I48.0 waiting a culture [id number] Tony Toure [facility] [address] [facility], [place] [address] 01/20/2025 14:11:47 01/20/2025 14:51:12 Depression screening 993926187 Z13.31 stable Nausea 463653091 R11.0 will set up with refil of medication Abdominal pain 90392792 R10.10 agreed to US abd and pelviswill r/o any other causes for the upper abdominal and pelvic discomfort s/p surgeryhas not had an imaging since November last year to recheck the area Atrial fibrillation 4943 6004 I48.0 stable Typical at rial flutter 381260301 I48.3 [id number] Tony Toure DO [facility] [address] [facility],[place] [address] 03/21/2025 14:00:55 03/21/2025 15:30:24 Acute back pain with sciatica 228767287 M54.42 will set up with lumbar spine imaging Health Concerns Section Related Observation LastModified by Organization Detai ls LastModified Time None Recorded Concern Status LastModified by Organization Details LastModified Time None Recorded Advance Directives Directive None Recorded Payers Insurance Date Sequence Insurance Name Policy Number Policy Mayers Covered Member ID Mayers Member ID Guarantor Name 10/02/2024 2 [place] [id number] Elysia Valle [id number] Elysiareyna Moreauon 03/21/2025 1 [place] [employer] Elysia Trevizo Valle [id number] Elysia Leonard 10/02/2024 2 [facility] [employer] [facility] TYPE I (HMO) [id number] Elysia Valle [id number] Elysia Valle 08/31/2021 2 UNSPECIFIED REMIT PAYOR Elysia Leonard 03/21/2025 2 [place] [id number] Elysia Valle [id number] Elysia Valle Notes Date Note Type Note Provider Name and Address Organization Details Recorded Time 4 text/html 3 mos f/u the patient [...] to make sure resolution TRINO ZARAGOZA [address] [facility], [place], [address], [facility] 03/12/2024 14:54:00 4 text/html [...] ankle swelling, orthopnea, palpitations TRINO ZARAGOZA [address] [place], [address], [facility] 06/26/2024 14:43:04 5 text/html 3 [...] her levels through transplant TRINO ZARAGOZA [address] [place], [address], [facility] 10/04/2024 14:50:19 5 text/html f/u [...] and treatment for mental health. TRINO ZARAGOZA [address] [place], [address], [facility] 01/20/2025 14:46:06 5 text/html c/o left knee and back pain the patient reports that she is having on going back pain, moving into her left leg and kneethe patient denies any trauma or injuryno falls recentlythe patient reports that she tends to favor her R leg more when it acts up the patient reports that she is having radiation from the lumbar spinethe patient has a hx of sciatica the patient is taking APAP (only allowed due to transplant) the patient denies any recent imaging of her backthe patient states [facility] maybe did some but nothing on file the patient will start on pred and msk relaxer (allergic to tramadol, not severe enough to warrant oxycodone) TRINO ZARAGOZA [address] [place], [address], [facility] 03/21/2025 14:29:59 OBGyn Episode No OBEpisode recorded.
--- OUTSIDE RECORDS SUMMARY | 2025-03-25 19:33 | XMS_ITS | Patient Health Record ---
Author Organization [facility] Address [address] [place] [address] Care Team Providers Care Human Resource Adviser Name Role Phone Tony Toure Primary Care Provider Junior Calvillo Unavailable [phone] Sakina May Unavailable Unavailable Reason For Referral No Information Plan Of Treatment No Information Insurance Providers Payer Name Payer Address Payer Phone Subscriber Number Group Number Insured Name Patient Relationship to Insured Coverage Start Date Coverage End Date [facility] [address] [place] [address] [phone] [id number] MARYANN GATES Self - patient is the insured
--- OUTSIDE RECORDS SUMMARY | 2025-03-25 19:33 | XMS_ITS | Encounter Summary ---
Author Organization [facility], Address [address] [place] [address] Phone Care Team Providers Care Hr Analyst Name Role Phone Patti Bell PA-C Primary Care Provider [phone] Encounter Details Date Type Department Care Team (Late st Contact Info) Description 07/28/2022 Documentation Only [facility], - [address] [phone] Patti Bell PA-C [address] [place] [phone] Social History Tobacco Use Types Packs/Day Years [...] on filedocumented in this encounter Care Teams Hr Analyst Relationship Specialty Start Date End Date Patti Blel PA-C [address] [place] [phone] PCP - General Physician Cold Work Operator 03/12/20 documented as of this encounter
--- OUTSIDE RECORDS SUMMARY | 2025-03-25 19:33 | XMS_ITS | Patient Health Record ---
[facility] Address [address] [place] [address] Care Team Providers Care Early Childhood Educator Aide Name Role Phone Tony Toure MD Primary Care Provider Munira Heller Unavailable [phone] Allergies Allergen (clinical drug ingredient) Drug/Non Drug Allergy documented on EMR Reaction Allergy Type Onset Date Status rosuvastatin Rosuvastatin Calcium swelling Drug Allergy Active Tramadol & Dietary Manage Prod swelling Drug Allergy Active Results Component Value Reference Range Notes HEMOGLOBIN A1C (GLYCOHEMOGLO BIN) Reviewed date:01/29/2025 01:46:02 PM Interpretation: Performing Lab: Notes/Report: HEMOGLOBIN A1C % (HH) 8.9 Reason For Referral No Information Medications Medication SIG (Take, Route, Frequency, Duration) Notes Start Date End Date Status Ferrous Sulfate 325 (65 Fe) MG TAKE 1 TABLET BY MOUTH TWICE A DAY Oral; Duration: 90 Not-Taking Omeprazole 40 MG TAKE 1 CAPSULE BY MOUTH TWICE A DAY Oral; Duration: 90 Not-Taking Flovent Diskus 250 MCG/ACT INHALE 1 PUFF TWICE A DAY BY FOR 90 DAYS. Inhalation; Duration: 90 Not-Taking Furosemide 40 MG TAKE 1 TABLET BY MOUTH EVERY DAY Orally Not-Taking Metoprolol Succinate 100 MG 1 capsule Orally twice a day Active D3 Super Strength 50 MCG (2000 UT) TAKE 2 CAPSULES BY MOUTH EVERY DAY Oral; Duration: 90 Not-Taking Ergocalciferol 31291 IU as directed Orally Active Eliquis 5 MG TAKE 1 TABLET BY MOUTH TWICE A DAY Oral; Duration: 90 Active Spironolactone 100 MG TAKE 1 TABLET BY MOUTH EVERY DAY Oral; Duration: 90 Not-Taking Multivitamin Active Torsemide 20 MG 2 tablets Orally Twice daily Active Lactulose 10 GM/15ML TAKE 15 ML BY MOUTH TWICE A DAY FOR 30 DAYS. Oral; Duration: 30 Not-Taking Triamterene-HCTZ Act stephan Pantoprazole Sodium Active Arnuity Ellipta 200 MCG/ACT 1 puff Inhalation Once a day Active Xanax 0.5 MG 1 tablet Orally Twice a day Active Trulicity 1.5 MG/0.5ML INJECT 1.5 MG (1 PEN) INTO THE SKIN ONCE A WEEK Subcutaneous; Duration: 84 Not-Taking Xifaxan 550 MG TAKE 1 TABLET BY MOUTH EVERY 12 HOURS Oral; Duration: 30 Not-Taking Docusate Sodium 100 MG 1 capsule as need ed Orally Once a day; Duration: 30 day(s) Not-Taking metFORMIN HCl 500 MG TAKE 1 TABLET BY MOUTH EVERY DAY Oral; Duration: 90 Not-Taking Nystatin 401122 U/ML as directed Mouth/Throat Not-Taking Nadolol 20 MG TAKE 1 TABLET BY MOUTH EVERY DAY Oral; Duration: 90 Not-Taking Fluticasone Propionate (Inhal) 250 MCG/BLIST 1 puff Inhalation Twice a day Not-Taking Prednisone Not-Takin g Ondansetron HCl 4 MG TAKE 1 TABLET BY MOUTH EVERY 6 HOURS NEEDED FOR NAUSEA OR VOMITING Oral; Duration: 30 PRN Active Extra Depth Orthopedic Shoes (1 Pair) with Customized Heat Molded Multidensity Innersoles (3 Pair) as directed Dx: NIDDM/Polyneuropathy (E11.42), Hammertoe Foot Deformity (M20.41,M20.42), Preulcerative Skin Lesion(s) (L85.1 08/31/2022 Not-Taking Vitamin D3 Not-Takin g HumaLOG KwikPen 100 UNIT/ML INJECT UP TO 30 UNITS DIRECTED THREE TIMES DAILY AFTER MEALS Subcutaneous; Duration: 90 Active Magnesium Oxide 400 (240 Mg) MG TAKE 2 TABLETS BY MOUTH 3 TIMES A DAY Oral; Duration: 90 Active Lovastatin 40 MG TAKE 1 TABLET BY MOUTH AT BEDTIME EVERY NIGHT Oral; Duration: 90 Active Synthroid 137 MCG TAKE 1 TABLET BY MOUTH EVERY DAY Oral; Duration: 90 Active Lantus SoloStar 100 UNIT/ML INJECT 50 UNITS INTO SKIN *PLUS 2 UNITS TO PRIME EACH DOSE* Subcutaneous; Duration: 58 Active Restasis 0.05 % INSTILL 1 DROP INTO BOTH EYES TWICE A DAY Ophthalmic; Duration: 90 Active Tacrolimus 0.2 MG as directed Orally Active Mycophenolate Mofetil 250 MG 2 capsules Orally Twice a day; Duration: 30 day(s) Active Pain Extra Strength 500 MG 1 tablet as needed Orally every 6 hrs Active Flecainide Acetate 100 MG TAKE 1 TABLET BY MOUTH TWICE A DAY Oral; Duration: 90 Not-Taking Acyclovir 800 MG 1 tablet Orally Twice a day; Duration: 10 day(s) Not-Taking Clotrimazole-Betametha sone 1-0.05 % APPLY TO AFFECTED AREA TWICE A DAY IN THE MORNING AND IN THE EVENING FOR 2 WEEKS External; Duration: 7 PRN Not-Taking LORazepam 0.5 MG 1 tablet at bedtime as needed Orally Once a day PRN Not-Taking Sodium Chloride 1 GM as directed Orally Not-Taking protonix 1 tab Oral; Duration: 14 days Not-Taking Senna Not-Taking Digoxin 125 MCG 1 tablet Orally Not-Taking Sulfamethoxazole-Trime thoprim 800-160 MG TAKE 1 TABLET BY MOUTH EVERY 12 HOURS FOR 5 DAYS Oral; Duration: 5 Not-Taking Bactrim Not-Taking [facility] Chewable C with Layne Hips 500 MG TAKE 1 TABLET BY MOUTH TWICE A DAY Oral; Duration: 30 Not-Taking Immunizations Vaccine Route Administration Date Status Comme [...] Problem Acquired hammer toe of right foot (4487317081811 105) Other hammer toe(s) (acquired), right foot (M20.41) Active confirmed Problem Acquired hammer toe of left foot ([id number] 103) Other hammer toe(s) (acquired), left foot (M20.42) Active confirmed Problem Neuropathy (574121410) Neuropathy (G62.9) Active confirmed Problem Type 2 diabetes mellitus with polyneuropathy (E11.42) Active confirmed Vital Signs Blood pressure diastolic 72 mm Hg 01/29/2025 Height 5ft7in in 01/29/2025 Blood pressure systolic 110 mm Hg 01/29/2025 Weight 215 lbs 01/29/2025 BMI 33.67 kg/m2 01/29/2025 Encounters Encounter Location Date Provider Diagnosis [address] [address] 06/07/2024 Munira Perica Tinea unguium B35.1 and Type 2 diabetes mellitus with polyneuropathy E11.[address] [address] 08/20/2024 Munira Perica Tinea unguium B35.1 and Type 2 diabetes mellitus with polyneuropathy E11.[address] [address] 11/08/2024 Munira Perica Tinea unguium B35.1 and Type 2 diabetes mellitus with polyneuropathy E11.[address] [address] 01/29/2025 Munira Perica Tinea unguium B35.1 and Type 2 diabetes mellitus with polyneuropathy E11.[address] [address] 10/30/2024 Munira Crews Assessments Encounter Date Diagnosis (ICD Code) Assessment Notes Treatment Notes Treatment Clinical Notes Section Notes 06/07/2024 Tinea unguium (ICD-10 - B35.1) 08/20/2024 Tinea unguium (ICD-10 - B35.1) 11/08/2024 Tinea unguium (ICD-10 - B35.1) 01/29/2025 Tinea unguium (ICD-10 - B35.1) 01/29/2025 Type 2 diabetes mellitus with polyneuropathy (ICD-10 - E11.42) 11/08/2024 Type 2 diabetes mellitus with polyneuropathy (ICD-10 - E11.42) 08/20/2024 Type 2 diabetes mellitus with polyneuropathy (ICD-10 - E11.42) 06/07/2024 Type 2 diabetes mellitus with polyneuropathy (ICD-10 - E11.42) Plan Of Treatment Next Appt Details Provider Name:Munira moraes 04/22/2025 01:30:00 PM, [address] [facility], [place], [address], Insurance Providers Payer Name Payer Address Payer Phone Subscriber Number Group Number Insured Name Patient Relationship to Insured Coverage Start Date Coverage End Date [employer] [address] [place] [address] [id number] Elysia Valle Self - patient is the insured [employer] [address] [place] [address] [id number] Elysia Valle Self - patient is the [...] Reason Date(Month/Year) [facility] - Vomiting 04/2023 [facility] became infected - 3 night stay 09/2022
--- NOTE | 2025-03-25 19:42 | PC.NURSE ---
Addendum entered by Eva Ching RN 03/26/25 01:02: gave nurse to nurse report to [place] at the pt transfer line at [facility]. Addendum entered by Eva Ching RN 03/25/25 20:19: pt ambulated with steady gait to restroom and back to room, collected urine sample and sent to lab. Original Note: is in room reporting pt has had poor PO intake today and several episodes of vomiting.
[2025-03-25 19:48] LABS: Alanine Aminotransferase 8 U/L (0-31); Albumin Level 4.0 g/dL (3.5-5.0); Alkaline Phosphatase 63 U/L (39-117); Anion Gap 18 (12-20); Aspartate Amino Transferase 14 U/L (5-31); Blood Urea Nitrogen 33 mg/dL (9-16); Calcium 8.8 mg/dL (8.4-10.2); Carbon Dioxide 23 mmol/L (22-29); Chloride 96 mmol/L (96-108); Creatinine Clr Calc Pharmacy 37.6; Estimated Glomerular Filt Rate 30; Potassium 4.5 mmol/L (3.3-5.1); Sodium 132 mmol/L (135-145); Total Protein 6.5 g/dL (6.5-8.0)
[2025-03-25 19:49] LABS: Band Neutrophils Percent 5 % (3-5); Lymphocytes Absolute Manual 0.4 X10*3/uL (1.2-4.9); Lymphocytes Percent Manual 2 % (20-40); Monocytes Absolute Manual 1.0 X10*3/uL (0.1-1.2); Monocytes Percent Manual 5 % (2-11); Neutrophils Absolute Manual 18.4 X10*3/uL (2.0-8.3); Neutrophils Percent Manual 88 % (45-73)
[2025-03-25 19:50] LABS: RBC Morphology NORMAL
[2025-03-25 20:07] LABS: Appearance Urine Clear; Glucose Urine UA 500 mg/dL (Negative); PH 6.5 (5.0-9.0); Specific Gravity - Urine 1.010 (1.005-1.025)
[2025-03-25 20:20] VITALS: BP 141/98; PULSE 85; RESP 13; O2SAT 93
--- NOTE | 2025-03-25 21:26 | ED.AMS ---
HPI - Altered Mental Status General Chief Complaint: Altered Mental Status Stated Complaint: confusion Time Seen by Provider: 03/25/25 20:31 Source: patient and family Mode of arrival: EMS Limitations: no limitations History of Present Illness ED Provider: HPI narrative: Patient is 65 years old with history of hypertension, hyperlipidemia, atrial fibrillation on apixaban, diabetes, thyroid disease, asthma ,obesity with ESLD due to CHIN with portal hypertension status post liver transplant 2021, splenomegaly , esophageal varices status post band ligation was seen here on 03/22/25 for increased confusion noted to have your urinary tract infection started on cephalexin improved initially then since last night patient's started be more lethargic sleeping all the time confused alert oriented x2 on arrival noted to have blood sugar of 377mg no fever no nausea no vomiting no abdominal pain Related Data Home Medications ?Medication ?Instructions ?Recorded ?Confirmed clotrimazole-betamethasone 1 1 applic topical BID PRN Rash 07/02/20 03/11/25 %-0.05 % topical cream fluticasone propionate 250 1 inh inhalation BEDTIME 07/02/20 03/11/25 mcg/actuation blister powder for inhalation insulin glargine 100 unit/mL (3 50 unit subcut BEDTIME 07/02/20 03/11/25 mL) subcutaneous pen lovastatin 40 mg tablet 40 mg PO BEDTIME 08/19/20 03/11/25 acetaminophen 325 mg tablet 650 mg PO Q4H PRN Pain 07/27/21 03/11/25 insulin lispro 100 unit/mL See Protocol subcut TIDAC 07/27/21 03/11/25 subcutaneous pen (Humalog KwikPen (U-100) Insulin) silver sulfadiazine 1 % topical appl topical BID 02/25/22 03/11/25 cream cyclosporine 0.05 % eye drops in a 1 drp ophthalmic (eye) Q12H 12/21/22 03/11/25 dropperette (Restasis) ergocalciferol (vitamin D2) 1,250 1,250 mcg PO QWEEK 12/21/22 03/11/25 mcg (50,000 unit) capsule mycophenolate mofetil 250 mg 750 mg PO BID 12/21/22 03/11/25 capsule pantoprazole 40 mg tablet,delayed 40 mg PO DAILY 12/21/22 03/11/25 release triamterene 37.5 1 cap PO QAM 12/21/22 03/11/25 mg-hydrochlorothiazide 25 mg capsule alprazolam 0.5 mg tablet 0.5 mg PO DAILY PRN 06/26/23 03/11/25 levothyroxine 137 mcg tablet 137 mcg PO DAILY 06/26/23 03/11/25 (Synthroid) magnesium oxide 400 mg (241.3 mg 400 mg PO ONCE 06/26/23 03/11/25 magnesium) tablet torsemide 20 mg tablet 40 mg PO ONCE 06/26/23 03/11/25 tacrolimus 1 mg capsule, 1 mg PO Q12H 03/07/24 03/11/25 immediate-release Previous Rx's ?Medication ?Instructions ?Recorded nystatin 100,000 unit/gram topical 1 appl topical BID #30 grams 01/22/22 cream ferrous sulfate 325 mg (65 mg 325 mg PO BID 90 days #180 tabs 05/09/22 iron) tablet metoprolol succinate 100 mg 100 mg PO Q12H 90 days #180 tabs 07/03/24 tablet,extended release 24 hr apixaban 5 mg tablet (Eliquis) 5 mg PO BID #180 tabs 09/09/24 digoxin 62.5 mcg (0.0625 mg) tablet 62.5 mcg PO DAILY #90 tabs 12/17/24 cephalexin 500 mg capsule 500 mg PO Q12H #14 caps 03/23/25 Allergies Allergy/AdvReac Type Severity Reaction Status Date / Time metoclopramide (From REGLAN) Allergy Unknown SWELLING Verified 03/25/25 19:11 tramadol (TRAMADOL) Allergy Unknown SWELLING Verified 03/25/25 19:11 From AUGMENTIN Allergy Mild COUGHING, Uncoded 03/25/25 19:11 LOW BP\ Review of Systems Review of Systems: Yes all other systems are reviewed and are negative [facility] Past Medical History Medical History Portal hypertension PAC (premature atrial contraction) Iron deficiency anemia Esophageal varices without bleeding Cirrhosis of liver with ascites History of colonic polyps GERD (gastroesophageal reflux disease) Paroxysmal atrial fibrillation Hypertension Hyperlipidemia Type 2 diabetes mellitus Asthma Thyroid disease Shingles Obesity (BMI 35.0-39.9 without comorbidity) Surgical History Status post surgical removal of pilonidal cyst (~1979) History of partial hysterectomy (~1998) Hx of endoscopy Hx of colonoscopy Family History Family History Father No problems noted. Mother No problems noted. Paternal Grandmother Colon cancer Social History Social History Household Members: Spouse Housing: House Do you presently have visiting nurse or other home services: No Alcohol intake: former Patient Tobacco Use Status: Never used Tobacco Smoked in Last 30 Days: No Use of substances other than those prescribed or required for medical reasons: No Advance Directives: No Advance Directives Information Provided: No service: No Current occupational status: disabled Current occupational exposures/hazards: No Physical Exam ED Vital Signs: Vital Signs - 24 hr 03/25/25 19:07 03/25/25 20:20 03/25/25 22:33 Temperature 98.4 F 98.2 F Pulse Rate 93 85 75 Respiratory Rate 16 13 18 Blood Pressure 140/76 H 141/98 H 155/75 H Pulse Oximetry 98 93 94 Oxygen Delivery Method Room Air Room Air Room Air 03/25/25 23:28 03/25/25 23:29 03/26/25 01:12 Temperature 98.1 F 98.0 F Pulse Rate 68 58 Respiratory Rate 14 17 Blood Pressure 149/80 H 140/78 H 127/86 Pulse Oximetry 93 99 Oxygen Delivery Method Room Air Nasal Cannula BMI result Body Mass Index 30.6 Appearance: Alert. Oriented X2. Lethargic arousable falling sleep Eyes: PERRLA, No Nystagmus no pallor or icterus ENT: Pharynx normal. Oral Mucosa moist Neck: Normal inspection. Neck supple. CVS: Irregularly irregular heart rate Pulses normal. Respiratory: No respiratory distress. Equal air entry bilateral, no wheezing/rales/rhonchi Abdomen: Soft and nontender. Bowel sounds are present, no mass palpable, no CVA tenderness Skin: Skin warm and dry. Normal skin color. Normal skin turgor. Extremities: No lower extremity edema. No calf tenderness no hepatic flap Neuro: Oriented X 2. No motor deficit. No sensory deficit.No cerebellar signs , cranial nerves II-XII intact Medications Administered Discontinued Medications Generic Name Dose Route Start Last Admin Trade Name Russell PRN Reason Stop Dose Admin Ceftriaxone Sodium 2 gm 03/25/25 21:27 03/25/25 21:55 Ceftriaxone Sodium 2 Gm Vial IVPUSH 03/25/25 21:28 2 gm ONCE ONE Administration Sodium Chloride 1,000 mls @ 999 mls/hr 03/25/25 21:27 03/25/25 23:28 Ns IV 03/25/25 22:27 Infused .Q1H1M ONE Infusion Insulin Human Lispro 12 unit 03/25/25 21:39 03/25/25 22:04 Insulin Lispro 100 Unit/Ml 3 Ml Vial SUBCUT 03/25/25 21:40 12 unit ONCE ONE Administration Medical Decision Making Medical Decision Making 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 Per patient been having elevated WBC count for last few months and no CT scan of the abdomen was done Patient was given IV Rocephin in the ER Transfer center at EMS consulted for possible transfer for evaluation of the fluid collection Differential Diagnosis Differential Diagnoses: The differential diagnosis associated with the presentation includes Admission/Observation Consideration of admission/observation: Escalation of care including admission/observation considered Lab Data [facility] Lab Attestation statement: I reviewed the patient's lab results. 03/25/25 19:20 03/25/25 19:20 Labs: Lab Results 03/25/25 03/25/25 03/25/25 Range/Units 19:20 20:02 21:47 WBC 19.8 H (4.8-10.8) X10*3/uL RBC 4.00 L (4.20-5.50) X10*6/uL Hgb 12.2 (12.0-16.0) g/dl Hct 35.5 L (37.0-47.0) % MCV 88.8 (80.0-98.0) fL MCH 30.5 (27.0-33.0) pg MCHC 34.4 (31.0-35.0) g/dl RDW 13.5 (11.0-16.0) % Plt Count 223 (160-400) X10*3/uL MPV 10.9 (9.4-12.3) fL Immature Gran % (Auto) Cancelled Neut % (Auto) Cancelled Lymph % (Auto) Cancelled Stoddard % (Auto) Cancelled Eos % (Auto) Cancelled Baso % (Auto) Cancelled Lymph # (Auto) Cancelled Stoddard # (Auto) Cancelled Eos # (Auto) Cancelled Baso # (Auto) Cancelled Abs Immat Gran (auto) Cancelled Absolute Neuts (auto) Cancelled Absolute Nucleated RBC 0.000 (0.0-0.012) X10*3/uL Nucleated RBC % (auto) 0.0 (0.0-0.2) /100WBC Neutrophils % (Manual) 88 H (45-73) % Band Neutrophils % 5 (3-5) % Lymphocytes % (Manual) 2 L (20-40) % Monocytes % (Manual) 5 (2-11) % Abs Neuts (Manual) 18.4 H (2.0-8.3) X10*3/uL Lymphocytes # (Manual) 0.4 L (1.2-4.9) X10*3/uL Monocytes # (Manual) 1.0 (0.1-1.2) X10*3/uL Platelet Estimate NORMAL (NORMAL) Plt Morphology Comment NORMAL RBC Morphology NORMAL Smear Tech's Comments MANUAL DIFF PT (10.9-12.4) SEC INR (0.9-1.1) APTT (26.0-36.8) SEC Sodium 132 L (135-145) mmol/L Potassium 4.5 (3.3-5.1) mmol/L Chloride 96 (96-108) mmol/L Carbon Dioxide 23 (22-29) mmol/L Anion Gap 18 (12-20) BUN 33 H (9-16) mg/dL Creatinine 1.68 H (0.5-1.4) mg/dL Estim Creat Clear Calc 37.6 Estimated GFR 30 POC Glucose 362 H* (60-115) mg/dL Random Glucose 377 H* (60-115) mg/dL Lactic Acid (0.5-2.0) mmol/L Calcium 8.8 D (8.4-10.2) mg/dL Total Bilirubin 1.0 (0.0-1.0) mg/dL AST 14 (5-31) U/L ALT 8 (0-31) U/L Alkaline Phosphatase 63 (39-117) U/L Ammonia (13-55) umol/L Total Protein 6.5 (6.5-8.0) g/dL Albumin 4.0 (3.5-5.0) g/dL Urine Color Yellow Urine Appearance Clear Urine pH 6.5 (5.0-9.0) Ur Specific Edwards 1.010 (1.005-1.025) Urine Protein Negative (Neg-Trace) mg/dL Urine Glucose (UA) 500 H (Negative) mg/dL Urine Ketones Negative (Negative) mg/dL Urine Blood Negative (Negative) Urine Nitrite Negative (Negative) Ur Leukocyte Esterase Negative (Negative) Urine RBC 0-2 (0-2) /HPF Urine WBC 0-5 (0-5) /HPF Ur Squamous Epith Cells 3-5 (0-2) /HPF Urine Bacteria None Seen (None Seen) Hyaline Casts 0-2 (0-2) /LPF Influenza Type A (PCR) (Negative) Influenza Type B (PCR) (Negative) RSV RNA Qual (PCR) (Negative) SARS-CoV-2 RNA (RT-PCR) (Negative) 03/25/25 03/26/25 03/26/25 Range/Units 21:51 00:30 01:10 WBC (4.8-10.8) X10*3/uL RBC (4.20-5.50) X10*6/uL Hgb (12.0-16.0) g/dl Hct (37.0-47.0) % MCV (80.0-98.0) fL MCH (27.0-33.0) pg MCHC (31.0-35.0) g/dl RDW (11.0-16.0) % Plt Count (160-400) X10*3/uL MPV (9.4-12.3) fL Immature Gran % (Auto) Neut % (Auto) Lymph % (Auto) Stoddard % (Auto) Eos % (Auto) Baso % (Auto) Lymph # (Auto) Stoddard # (Auto) Eos # (Auto) Baso # (Auto) Abs Immat Gran (auto) Absolute Neuts (auto) Absolute Nucleated RBC (0.0-0.012) X10*3/uL Nucleated RBC % (auto) (0.0-0.2) /100WBC Neutrophils % (Manual) (45-73) % Band Neutrophils % (3-5) % Lymphocytes % (Manual) (20-40) % Monocytes % (Manual) (2-11) % Abs Neuts (Manual) (2.0-8.3) X10*3/uL Lymphocytes # (Manual) (1.2-4.9) X10*3/uL Monocytes # (Manual) (0.1-1.2) X10*3/uL Platelet Estimate (NORMAL) Plt Morphology Comment RBC Morphology Smear Tech's Comments PT 15.3 H (10.9-12.4) SEC INR 1.3 H (0.9-1.1) APTT 32.9 (26.0-36.8) SEC Sodium (135-145) mmol/L Potassium (3.3-5.1) mmol/L Chloride (96-108) mmol/L Carbon Dioxide (22-29) mmol/L Anion Gap (12-20) BUN (9-16) mg/dL Creatinine (0.5-1.4) mg/dL Estim Creat Clear Calc Estimated GFR POC Glucose 256 H (60-115) mg/dL Random Glucose (60-115) mg/dL Lactic Acid 1.6 (0.5-2.0) mmol/L Calcium (8.4-10.2) mg/dL Total Bilirubin (0.0-1.0) mg/dL AST (5-31) U/L ALT (0-31) U/L Alkaline Phosphatase (39-117) U/L Ammonia 29 (13-55) umol/L Total Protein (6.5-8.0) g/dL Albumin (3.5-5.0) g/dL Urine Color Urine Appearance Urine pH (5.0-9.0) Ur Specific Edwards (1.005-1.025) Urine Protein (Neg-Trace) mg/dL Urine Glucose (UA) (Negative) mg/dL Urine Ketones (Negative) mg/dL Urine Blood (Negative) Urine Nitrite (Negative) Ur Leukocyte Esterase (Negative) Urine RBC (0-2) /HPF Urine WBC (0-5) /HPF Ur Squamous Epith Cells (0-2) /HPF Urine Bacteria (None Seen) Hyaline Casts (0-2) /LPF Influenza Type A (PCR) NEGATIVE (Negative) Influenza Type B (PCR) NEGATIVE (Negative) RSV RNA Qual (PCR) NEGATIVE (Negative) SARS-CoV-2 RNA (RT-PCR) NEGATIVE (Negative) Independent Interpretation I performed an independent interpretation of an: EKG Interpretation: Atrial flutter with variable block ventricular rate of 77 beats per minute LVH no acute STT wave changes no acute ischemia Radiology Impression Discussion of test interpretation with radiology: I have reviewed the radiologist's reading. Radiologist Impression: [place] [id number] CT Scan Report Signed Patient: Elysia Valle MR#: [id number] : 1960 Acct:[id number] Age/Sex: 65 / F ADM Date: 03/25/25 Loc: HO.ED Attending Dr: Ordering Physician: Wyatt Gonzales MD Date of Service: 03/25/25 Procedure(s): CT abdomen pelvis wo IV con Accession Number(s): [id number] cc: Tony Toure MD; Wyatt Gonzales MD~ Report Number: [id number]: Total DLP = 709.00 mGy-cm CLINICAL HISTORY: Status post liver transplant leukocytosis CKD CT abdomen and pelvis without contrast Comparison: 06/23/2022 Findings: The lung bases are clear. Surgical clips in the region of the nany hepatis and posterior to the right lobe of the liver. Dilated left gonadal veins. Left gonadal vein is dilated to 3.8 cm in diameter, similar to prior, series 7, image 46. There is a large collateral from the splenic vein to the gonadal vein. There is a focal low-attenuation area in the posterior right lobe of the liver measuring 5.6 x 2.1 x 6.0 cm. There is a right adrenal mass consistent with an adrenal adenoma measuring 2.2 cm in diameter and 0 Hounsfield units. Spleen has a markedly lobulated appearance and measures 13 cm in length. Left adrenal gland, pancreas and kidneys are unremarkable. No hydronephrosis. The gallbladder is absent. No bowel obstruction, pneumoperitoneum, or pneumatosis. There is a unchanged lower abdominal wall ventral hernia containing loops of small bowel with a wide neck without evidence of bowel obstruction or strangulation. Pelvic contents unremarkable. Normal appendix. Uterus is absent. Central height loss at L4 and L5 which appear chronic. Multilevel degenerative change of the lumbar spine. IMPRESSION: 1. 5.6 x 2.1 x 6.0 cm new low-attenuation structure in the posterior right lobe of the liver is indeterminate. Differential includes cyst, abscess, contusion as well as others. 2. 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 3. Right adrenal adenoma, Unchanged. 4. Findings consistent with previous hepatic transplant. This document has been electronically signed by: Gerardo Madrid MD on 03/25/2025 23:24:59 Critical Care Time Critical Care Time Critical Care Time: Yes Total Critical Care Time: 65 Attestation: Time is exclusive of separately billable procedures. Time includes: direct patient care, patient reassessment, coordination of patient care, interpretation of data (laboratory data, pulse oximetry, arterial blood gases and chest xrays), review of patient's medical records, medical consultation and documentation of patient care. Procedures excluded from critical care time: central intravenous line placement and electrocardiography. Discharge Plan Discharge Clinical Impression: Acute metabolic encephalopathy, Intra-abdominal fluid collection, Diabetes mellitus with hyperglycemia, Status post liver transplant Patient Disposition: [facility] Transfer Details: [facility] emergency department Dr. Nava Prescriptions: No Action ferrous sulfate 325 mg (65 mg iron) tablet 325 mg PO BID 90 Days Qty: 180 1RF metoprolol succinate 100 mg tablet extended release 24 hr 100 mg PO Q12H 90 Days Qty: 180 3RF Eliquis 5 mg tablet 5 mg PO BID Qty: 180 3RF digoxin 62.5 mcg (0.0625 mg) tablet 62.5 mcg PO DAILY Qty: 90 1RF insulin lispro [Humalog KwikPen Insulin] 100 unit/mL insulin pen See Protocol subcut TIDAC Protocol: Insulin Correction Scale Less than or equal to 110 ---- Give (units): 0 111 to 150 Give (units): 0 151 to 200 Give (units): 2 201 to 250 Give (units): 4 251 to 300 Give (units): 6 301 to 350 Give (units): 8 Greater than 350 Give (units): 10 Call MD if Blood Glucose > : 350 acetaminophen 325 mg Tablet 650 mg PO Q4H PRN (Reason: Pain) cephalexin 500 mg capsule 500 mg PO Q12H Qty: 14 0RF nystatin 100,000 unit/gram cream 1 appl topical BID Qty: 30 1RF insulin glargine 100 unit/mL (3 mL) insulin pen 50 unit subcut BEDTIME clotrimazole-betamethasone 1-0.05 % cream 1 applic topical BID PRN (Reason: Rash) fluticasone propionate 250 mcg/actuation blister with device 1 inh inhalation BEDTIME lovastatin 40 mg tablet 40 mg PO BEDTIME mycophenolate mofetil 250 mg capsule 750 mg PO BID cyclosporine [Restasis] 0.05 % dropperette 1 drp ophthalmic (eye) Q12H ergocalciferol (vitamin D2) 1,250 mcg (50,000 unit) capsule 1,250 mcg PO QWEEK triamterene-hydrochlorothiazid 37.5-25 mg capsule 1 cap PO QAM pantoprazole 40 mg tablet,delayed release (DR/EC) 40 mg PO DAILY torsemide 20 mg tablet 40 mg PO ONCE silver sulfadiazine 1 % cream topical BID levothyroxine [Synthroid] 137 mcg tablet 137 mcg PO DAILY alprazolam 0.5 mg tablet 0.5 mg PO DAILY PRN magnesium oxide 400 mg (241.3 mg magnesium) tablet 400 mg PO ONCE tacrolimus 1 mg capsule 1 mg PO Q12H Print Language: Bulgarian
[2025-03-25 21:57] LABS: Glucose, Whole Blood 362 mg/dL (60-115)
[2025-03-25 22:33] VITALS: BP 155/75; PULSE 75; RESP 18; TEMP 36.8; O2SAT 94
[2025-03-25 23:28] VITALS: BP 149/80; PULSE 68; RESP 14; TEMP 36.7; O2SAT 93
[2025-03-25 23:29] VITALS: BP 140/78
[2025-03-26 00:48] LABS: INTERNATIONAL NORM RATIO 1.3 (0.9-1.1); Prothrombin Time 15.3 SEC (10.9-12.4)
[2025-03-26 00:49] LABS: Ammonia 29 umol/L (13-55)
[2025-03-26 00:51] LABS: Partial Thromboplastin Time 32.9 SEC (26.0-36.8)
[2025-03-26 01:12] VITALS: BP 127/86; PULSE 58; RESP 17; TEMP 36.7; O2SAT 99
[2025-03-26 01:17] LABS: Resp Syncy Virus RNA Qual PCR NEGATIVE (Negative); SARS COV2 PCR INHOUSE NEGATIVE (Negative)
[2025-03-26 01:19] LABS: Glucose, Whole Blood 256 mg/dL (60-115)
[2025-03-26 01:31] VITALS: BP 127/86; PULSE 58; RESP 17; TEMP 36.7; O2SAT 99
== END 2025-03-26 01:32 | disposition short-term general hospital (02) ==
PROVIDERS: Emergency Provider Internal Medicine; PCP Internal Medicine
DX: G93.41 Metabolic encephalopathy (principal); R18.8 Other ascites; E11.65 Type 2 diabetes mellitus with hyperglycemia; Z94.4 Liver transplant status; R41.82 Altered mental status, unspecified; Z03.818 Encounter for observation for suspected exposure to other biological agents ruled out; E78.5 Hyperlipidemia, unspecified; J45.909 Unspecified asthma, uncomplicated; I48.91 Unspecified atrial fibrillation; Z79.01 Long term (current) use of anticoagulants; Z79.4 Long term (current) use of insulin; Z79.899 Other long term (current) drug therapy
CPT/HCPCS: 36415; 74176; 80053; 81001; 82140; 82947; 83605; 85007; 85027; 85610; 85730; 87040; 87637; 93005; 96361; 96374; 99285; 99291; J0696

== ENCOUNTER → 2025-03-25 19:44 | Outpatient (BNV) | payer MEDICARE, SELFPAY | PROVIDERS: Emergency Provider Internal Medicine; PCP Internal Medicine; Visit Provider Internal Medicine Cardiovascular Disease | DX: I48.92 Unspecified atrial flutter (principal); I44.0 Atrioventricular block, first degree; I44.4 Left anterior fascicular block; J98.4 Other disorders of lung | CPT/HCPCS: 93010 ==

== ENCOUNTER → 2025-03-25 21:36 | Outpatient (BNV) | payer MEDICARE, SELFPAY | PROVIDERS: Emergency Provider Internal Medicine; PCP Internal Medicine; Visit Provider Radiology Diagnostic Radiology | DX: D35.01 Benign neoplasm of right adrenal gland (principal) | CPT/HCPCS: 74176 ==

== ENCOUNTER 2025-07-18 13:40 | Outpatient (REF) | payer MEDICARE, SELFPAY ==
--- OUTSIDE RECORDS SUMMARY | 2024-10-30 10:45 | XMS_ITS ---
Author Organization [facility] [place] Address [address] [place] [address] Care Team Providers Care Bobtail Driver Name Role Phone Tony Toure MD Primary Care Provider Munira Heller Unavailable [phone] Allergies Allergen (clinical drug ingredient) Drug/Non Drug Allergy documented on EMR Reaction Allergy Type Onset Date Status rosuvastatin Rosuvastatin Calcium swelling Drug Allergy Active Tramadol & Dietary Manage Prod swelling Drug Allergy Active Medications Medication SIG (Take, Route, Frequency, Duration) Notes Start Date End Date Status protonix 1 tab Oral; Duration: 14 days Not-Taking Acyclovir 800 MG 1 tablet Orally Twice a day; Duration: 10 day(s) Not-Taking Bactrim Not-Taking LORazepam 0.5 MG 1 tablet at bedtime as needed Orally Once a day PRN Not-Taking Digoxin 125 MCG 1 tablet Orally Not-Taking Flovent Diskus 250 MCG/ACT INHALE 1 PUFF TWICE A DAY BY FOR 90 DAYS. Inhalation; Duration: 90 Not-Taking Ferrous Sulfate 325 (65 Fe) MG TAKE 1 TABLET BY MOUTH TWICE A DAY Oral; Duration: 90 Not-Taking Eliquis 5 MG TAKE 1 TABLET BY MOUTH TWICE A DAY Oral; Duration: 90 Active Ondansetron HCl 4 MG TAKE 1 TABLET BY MOUTH EVERY 6 HOURS NEEDED FOR NAUSEA OR VOMITING Oral; Duration: 30 PRN Active Magnesium Oxide 400 (240 Mg) MG TAKE 2 TABLETS BY MOUTH 3 TIMES A DAY Oral; Duration: 90 Active Lovastatin 40 MG TAKE 1 TABLET BY MOUTH AT BEDTIME EVERY NIGHT Oral; Duration: 90 Active Lantus SoloStar 100 UNIT/ML INJECT 50 UNITS INTO SKIN *PLUS 2 UNITS TO PRIME EACH DOSE* Subcutaneous; Duration: 58 Active Restasis 0.05 % INSTILL 1 DROP INTO BOTH EYES TWICE A DAY Ophthalmic; Duration: 90 Active HumaLOG KwikPen 100 UNIT/ML INJECT UP TO 30 UNITS DIRECTED THREE TIMES DAILY AFTER MEALS Subcutaneous; Duration: 90 Active Synthroid 137 MCG TAKE 1 TABLET BY MOUTH EVERY DAY Oral; Duration: 90 Active Metoprolol Succinate 100 MG 1 capsule Orally twice a day Active Tacrolimus 0.2 MG as directed Orally Active Mycophenolate Mofetil 250 MG 2 capsules Orally Twice a day; Duration: 30 day(s) Active Ergocalciferol 82892 IU as directed Orally Active Pain Extra Strength 500 MG 1 tablet as needed Orally every 6 hrs Active Torsemide 20 MG 2 tablets Orally Twice daily Active Multivitamin Active Pantoprazole Sodium Active Triamterene-HCTZ Act stephan Xanax 0.5 MG 1 tablet Orally Twice a day Active Sulfamethoxazole-Trime thoprim 800-160 MG TAKE 1 TABLET BY MOUTH EVERY 12 HOURS FOR 5 DAYS Oral; Duration: 5 Not-Taking Sodium Chloride 1 GM as directed Orally Not-Taking [employer] Chewable C with Layne Hips 500 MG TAKE 1 TABLET BY MOUTH TWICE A DAY Oral; Duration: 30 Not-Taking Arnuity Ellipta 200 MCG/ACT 1 puff Inhalation Once a day Active Senna Not-Taking Furosemide 40 MG TAKE 1 TABLET BY MOUTH EVERY DAY Orally Not-Taking Omeprazole 40 MG TAKE 1 CAPSULE BY MOUTH TWICE A DAY Oral; Duration: 90 Not-Taking Lactulose 10 GM/15ML TAKE 15 ML BY MOUTH TWICE A DAY FOR 30 DAYS. Oral; Duration: 30 Not-Taking Spironolactone 100 MG TAKE 1 TABLET BY MOUTH EVERY DAY Oral; Duration: 90 Not-Taking D3 Super Strength 50 MCG (2000 UT) TAKE 2 CAPSULES BY MOUTH EVERY DAY Oral; Duration: 90 Not-Taking Xifaxan 550 MG TAKE 1 TABLET BY MOUTH EVERY 12 HOURS Oral; Duration: 30 Not-Taking Docusate Sodium 100 MG 1 capsule as need ed Orally Once a day; Duration: 30 day(s) Not-Taking Nadolol 20 MG TAKE 1 TABLET BY MOUTH EVERY DAY Oral; Duration: 90 Not-Taking Trulicity 1.5 MG/0.5ML INJECT 1.5 MG (1 PEN) INTO THE SKIN ONCE A WEEK Subcutaneous; Duration: 84 Not-Taking metFORMIN HCl 500 MG TAKE 1 TABLET BY MOUTH EVERY DAY Oral; Duration: 90 Not-Taking Prednisone Not-Takin g Fluticasone Propionate (Inhal) 250 MCG/BLIST 1 puff Inhalation Twice a day Not-Taking Nystatin 466055 U/ML as directed Mouth/Throat Not-Taking Vitamin D3 Not-Takin g Extra Depth Orthopedic Shoes (1 Pair) with Customized Heat Molded Multidensity Innersoles (3 Pair) as directed Dx: NIDDM/Polyneuropathy (E11.42), Hammertoe Foot Deformity (M20.41,M20.42), Preulcerative Skin Lesion(s) (L85.1 08/31/2022 Not-Taking Flecainide Acetate 100 MG TAKE 1 TABLET BY MOUTH TWICE A DAY Oral; Duration: 90 Not-Taking Clotrimazole-Betametha sone 1-0.05 % APPLY TO AFFECTED AREA TWICE A DAY IN THE MORNING AND IN THE EVENING FOR 2 WEEKS External; Duration: 7 PRN Not-Taking Encounters Encounter Location Date Provider Diagnosis [facility] [address] [address] 10/30/2024 Munira Crews Plan Of Treatment Next Appt Details Provider Name:Munira moraes, 09/23/2025 02:45:00 PM, [address] [place] [address], [phone], Progress Notes * Elysia VALLEDOB:1960 (65 yo F)Acc No.[id number]:10/30/2024 Progress Note Patient: Elysia HULL Provider: Tylor Crews DPM :1960 A ge:64 Y S ex:Female Date:10/30/2024 Address:[address] [place], [place] [address] Pcp:Tony Toure MD Subjective: * Chief Complaints: * * HPI: A t Risk footcare: Pt States Last PCP Visit: D ate 0 04/25/2024 * Medical History: A nemia, Asthma, Back,Hip,and Knee pain, Diabetic, Heart disease, High blood pressure, Liver disease, Thyroid, Measles, Mumps, Chicken pox, Transfusions. * Medications: T aking Arnuity Ellipta 200 MCG/ACT Aerosol Powder Breath Activated 1 puff Inhalation Once a day , Taking Xanax 0.5 MG Tablet 1 tablet Orally Twice a day , Taking Triamterene-HCTZ , Taking Pantoprazole Sodium , Taking Multivitamin , Taking Torsemide 20 MG Tablet 2 tablets Orally Twice daily , Taking Metoprolol Succinate 100 MG Capsule ER 24 Hour Sprinkle 1 capsule Orally , Notes to Pharmacist: twice a day, Taking Ergocalciferol 46805 IU Tablet as directed Orally , Taking Pain Extra Strength 500 MG Tablet 1 tablet as needed Orally every 6 hrs , Taking Tacrolimus 0.2 MG Packet as directed Orally , Taking Mycophenolate Mofetil 250 MG Capsule 2 capsules Orally Twice a day , Taking Lantus SoloStar 100 UNIT/ML Solution Pen-injector INJECT 50 UNITS INTO SKIN *PLUS 2 UNITS TO PRIME EACH DOSE* Subcutaneous , Taking Restasis 0.05 % Emulsion INSTILL 1 DROP INTO BOTH EYES TWICE A DAY Ophthalmic , Taking Lovastatin 40 MG Tablet TAKE 1 TABLET BY MOUTH AT BEDTIME EVERY NIGHT Oral , Taking Synthroid 137 MCG Tablet TAKE 1 TABLET BY MOUTH EVERY DAY Oral , Taking HumaLOG KwikPen 100 UNIT/ML Solution Pen-injector INJECT UP TO 30 UNITS DIRECTED THREE TIMES DAILY AFTER MEALS Subcutaneous , Taking Magnesium Oxide 400 (240 Mg) MG Tablet TAKE 2 TABLETS BY MOUTH 3 TIMES A DAY Oral , Taking Ondansetron HCl 4 MG Tablet TAKE 1 TABLET BY MOUTH EVERY 6 HOURS NEEDED FOR NAUSEA OR VOMITING Oral , Notes to Pharmacist: PRN, Taking Eliquis 5 MG Tablet TAKE 1 TABLET BY MOUTH TWICE A DAY Oral , Not-Taking/PRN Ferrous Sulfate 325 (65 Fe) MG Tablet TAKE 1 TABLET BY MOUTH TWICE A DAY Oral , Not-Taking/PRN Flovent Diskus 250 MCG/ACT Aerosol Powder Breath Activated INHALE 1 PUFF TWICE A DAY BY FOR 90 DAYS. Inhalation , Not-Taking/PRN Digoxin 125 MCG Tablet 1 tablet Orally , Not-Taking/PRN Bactrim , Not-Taking/PRN LORazepam 0.5 MG Tablet 1 tablet at bedtime as needed Orally Once a day , Notes to Pharmacist: PRN, Not-Taking/PRN protonix 1 tab Oral , Not-Taking/PRN Acyclovir 800 MG Tablet 1 tablet Orally Twice a day , Not-Taking/PRN Clotrimazole-Betamethasone 1-0.05 % Cream APPLY TO AFFECTED AREA TWICE A DAY IN THE MORNING AND IN THE EVENING FOR 2 WEEKS External , Notes to Pharmacist: PRN, Not-Taking/PRN Flecainide Acetate 100 MG Tablet TAKE 1 TABLET BY MOUTH TWICE A DAY Oral , Not-Taking/PRN Extra Depth Orthopedic Shoes (1 Pair) with Customized Heat Molded Multidensity Innersoles (3 Pair) as directed Dx: NIDDM/Polyneuropathy (E11.42), Hammertoe Foot Deformity (M20.41,M20.42), Preulcerative Skin Lesion(s) (L85.1 , Not-Taking/PRN Vitamin D3 , Not-Taking/PRN Fluticasone Propionate (Inhal) 250 MCG/BLIST Aerosol Powder Breath Activated 1 puff Inhalation Twice a day , Not-Taking/PRN Prednisone , Not-Taking/PRN Nystatin 983327 U/ML Suspension Reconstituted as directed Mouth/Throat , Not-Taking/PRN Nadolol 20 MG Tablet TAKE 1 TABLET BY MOUTH EVERY DAY Oral , Not-Taking/PRN Docusate Sodium 100 MG Capsule 1 capsule as needed Orally Once a day , Not-Taking/PRN metFORMIN HCl 500 MG Tablet TAKE 1 TABLET BY MOUTH EVERY DAY Oral , Not-Taking/PRN Trulicity 1.5 MG/0.5ML Solution Pen-injector INJECT 1.5 MG (1 PEN) INTO THE SKIN ONCE A WEEK Subcutaneous , Not-Taking/PRN Xifaxan 550 MG Tablet TAKE 1 TABLET BY MOUTH EVERY 12 HOURS Oral , Not-Taking/PRN Lactulose 10 GM/15ML Solution TAKE 15 ML BY MOUTH TWICE A DAY FOR 30 DAYS. Oral , Not-Taking/PRN D3 Super Strength 50 MCG (2000 UT) Capsule TAKE 2 CAPSULES BY MOUTH EVERY DAY Oral , Not-Taking/PRN Spironolactone 100 MG Tablet TAKE 1 TABLET BY MOUTH EVERY DAY Oral , Not-Taking/PRN Omeprazole 40 MG Capsule Delayed Release TAKE 1 CAPSULE BY MOUTH TWICE A DAY Oral , Not-Taking/PRN Furosemide 40 MG Tablet TAKE 1 TABLET BY MOUTH EVERY DAY Orally , Not-Taking/PRN Sulfamethoxazole-Trimethoprim 800-160 MG Tablet TAKE 1 TABLET BY MOUTH EVERY 12 HOURS FOR 5 DAYS Oral , Not-Taking/PRN [employer] Chewable C with Layne Hips 500 MG Tablet Chewable TAKE 1 TABLET BY MOUTH TWICE A DAY Oral , Not-Taking/PRN Sodium Chloride 1 GM Tablet as directed Orally , Not-Taking/PRN Senna * Allergies: T ramadol & Dietary Manage Prod: swelling, Rosuvastatin Calcium: swelling. Objective: * Vitals: Assessment: Plan: * Treatment: * Images: * The named appointment provid er may or may not be the originator of this progress note, and it is not deemed complete until electronically signed by the appointment provider. Sign off status: Pending * Provider: Tylor Crews DPM Date: 0 10/30/2024 Generated for Irma romo/Virgie/Anitra on: 03:43 PM EDT History and Physical Notes * HPI (History of Present Illness) Category Sub-Category Detail Notes Category Not es At Risk footcare Pt States Last PCP Visit: Date: 4
--- OUTSIDE RECORDS SUMMARY | 2025-04-22 09:30 | XMS_ITS ---
[facility] Organization [facility] Ann patterson Sebastián Address [address] [place] [address] Care Team Providers Care Marble Mechanic Helper Name Role Phone Tony Toure MD Primary Care Provider Munira Heller Unavailable [phone] Medications Medication SIG (Take, Route, Frequency, Duration) Notes Start Date End Date Status Sulfamethoxazole-Trime thoprim 800-160 MG TAKE 1 TABLET BY MOUTH EVERY 12 HOURS FOR 5 DAYS Oral; Duration: 5 Not-Taking Furosemide 40 MG TAKE 1 TABLET BY MOUTH EVERY DAY Orally Not-Taking Sodium Chloride 1 GM as directed Orally Not-Taking [employer] Chewable C with Layne Hips 500 MG TAKE 1 TABLET BY MOUTH TWICE A DAY Oral; Duration: 30 Not-Taking Senna Not-Taking Xifaxan 550 MG TAKE 1 TABLET BY MOUTH EVERY 12 HOURS Oral; Duration: 30 Not-Taking D3 Super Strength 50 MCG (2000 UT) TAKE 2 CAPSULES BY MOUTH EVERY DAY Oral; Duration: 90 Not-Taking Lactulose 10 GM/15ML TAKE 15 ML BY MOUTH TWICE A DAY FOR 30 DAYS. Oral; Duration: 30 Not-Taking Omeprazole 40 MG TAKE 1 CAPSULE BY MOUTH TWICE A DAY Oral; Duration: 90 Not-Taking Spironolactone 100 MG TAKE 1 TABLET BY MOUTH EVERY DAY Oral; Duration: 90 Not-Taking Trulicity 1.5 MG/0.5ML INJECT 1.5 MG (1 PEN) INTO THE SKIN ONCE A WEEK Subcutaneous; Duration: 84 Not-Taking Nystatin 417717 U/ML as directed Mouth/Throat Not-Taking Docusate Sodium 100 MG 1 capsule as need ed Orally Once a day; Duration: 30 day(s) Not-Taking Nadolol 20 MG TAKE 1 TABLET BY MOUTH EVERY DAY Oral; Duration: 90 Not-Taking metFORMIN HCl 500 MG TAKE 1 TABLET BY MOUTH EVERY DAY Oral; Duration: 90 Not-Taking Extra Depth Orthopedic Shoes (1 Pair) with Customized Heat Molded Multidensity Innersoles (3 Pair) as directed Dx: NIDDM/Polyneuropathy (E11.42), Hammertoe Foot Deformity (M20.41,M20.42), Preulcerative Skin Lesion(s) (L85.1 08/31/2022 Not-Taking Flecainide Acetate 100 MG TAKE 1 TABLET BY MOUTH TWICE A DAY Oral; Duration: 90 Not-Taking Fluticasone Propionate (Inhal) 250 MCG/BLIST 1 puff Inhalation Twice a day Not-Taking Vitamin D3 Not-Takin g Prednisone Not-Takin g Clotrimazole-Betametha sone 1-0.05 % APPLY TO AFFECTED AREA TWICE A DAY IN THE MORNING AND IN THE EVENING FOR 2 WEEKS External; Duration: 7 PRN Not-Taking LORazepam 0.5 MG 1 tablet at bedtime as needed Orally Once a day PRN Not-Taking Bactrim Not-Taking Acyclovir 800 MG 1 tablet Orally Twice a day; Duration: 10 day(s) Not-Taking protonix 1 tab Oral; Duration: 14 days Not-Taking Ondansetron HCl 4 MG TAKE 1 TABLET BY MOUTH EVERY 6 HOURS NEEDED FOR NAUSEA OR VOMITING Oral; Duration: 30 PRN Active Ferrous Sulfate 325 (65 Fe) MG TAKE 1 TABLET BY MOUTH TWICE A DAY Oral; Duration: 90 Not-Taking Eliquis 5 MG TAKE 1 TABLET BY MOUTH TWICE A DAY Oral; Duration: 90 Active Digoxin 125 MCG 1 tablet Orally Not-Taking Flovent Diskus 250 MCG/ACT INHALE 1 PUFF TWICE A DAY BY FOR 90 DAYS. Inhalation; Duration: 90 Not-Taking Magnesium Oxide 400 (240 Mg) MG TAKE 2 TABLETS BY MOUTH 3 TIMES A DAY Oral; Duration: 90 Active Restasis 0.05 % INSTILL 1 DROP INTO BOTH EYES TWICE A DAY Ophthalmic; Duration: 90 Active Synthroid 137 MCG TAKE 1 TABLET BY MOUTH EVERY DAY Oral; Duration: 90 Active Lovastatin 40 MG TAKE 1 TABLET BY MOUTH AT BEDTIME EVERY NIGHT Oral; Duration: 90 Active HumaLOG KwikPen 100 UNIT/ML INJECT UP TO 30 UNITS DIRECTED THREE TIMES DAILY AFTER MEALS Subcutaneous; Duration: 90 Active Pain Extra Strength 500 MG 1 tablet as needed Orally every 6 hrs Active Ergocalciferol 20543 IU as directed Orally Active Mycophenolate Mofetil 250 MG 2 capsules Orally Twice a day; Duration: 30 day(s) Active Tacrolimus 0.2 MG as directed Orally Active Lantus SoloStar 100 UNIT/ML INJECT 50 UNITS INTO SKIN *PLUS 2 UNITS TO PRIME EACH DOSE* Subcutaneous; Duration: 58 Active Multivitamin Active Pantoprazole Sodium Active Metoprolol Succinate 100 MG 1 capsule Orally twice a day Active Torsemide 20 MG 2 tablets Orally Twice daily Active Triamterene-HCTZ Act stephan Arnuity Ellipta 200 MCG/ACT 1 puff Inhalation Once a day Active Xanax 0.5 MG 1 tablet Orally Twice a day Active Encounters Encounter Location Date Provider Diagnosis [facility] [address] [address] 04/22/2025 Munira Crews Plan Of Treatment Next Appt Details Provider Name:Munira moraes, 09/23/2025 02:45:00 PM, [address] [place] [address], [id number], Progress Notes * YAJAIRA ElysiaDOB:1960 (65 yo F)Acc No.[id number]:04/22/2025 Progress Note Patient: Elysia HULL Provider: Tylor Crews DPM :1960 A ge:65 Y S ex:Female Date:04/22/2025 Address:[address] [place], [place] [id number] Pcp:Tony Toure MD Subjective: * Chief Complaints: * * HPI: A t Risk footcare: Pt States Last PCP Visit: D ate 0 01/20/2025 * Medical History: * Medications: T aking Arnuity Ellipta 200 [...] to Pharmacist: twice a day, Taking Ergocalciferol 02594 IU Tablet as directed Orally , Taking [...] day , Not-Taking/PRN Prednisone , Not-Taking/PRN Nystatin 325426 U/ML Suspension Reconstituted as directed Mouth/Throat , [...] Tablet as directed Orally , Not-Taking/PRN Senna Objective: * Vitals: Assessment: Plan: * Treatment: * Images: * The named appointment provid er may or may not be the originator of this progress note, and it is not deemed complete until electronically signed by the appointment provider. Sign off status: Pending * Provider: Tylor Crews, JOSE Date: 0 04/22/2025 Generated for Irma romo/Virgie/Anitra on: 1 03:42 PM EDT History and Physical Notes * HPI (History of Present Illness) Category Sub-Category Detail Notes Category Not es At Risk footcare Pt States Last PCP Visit: Date:
--- OUTSIDE RECORDS SUMMARY | 2025-07-15 10:45 | XMS_ITS ---
Author Organization [facility] yes[facility] EmersonSebastián Address [address] [place] [address] Care Team Providers Care Environmental Technology Professor Name Role Phone Tony Toure MD Primary Care Provider Munira Heller Unavailable [phone] Allergies Allergen (clinical drug ingredient) Drug/Non Drug [...] DAY Oral; Duration: 30 Not-Taking Senna Not-Taking Sulfamethoxazole-Trime thoprim 800-160 MG TAKE 1 TABLET BY MOUTH EVERY 12 HOURS FOR 5 DAYS Oral; Duration: 5 Not-Taking Furosemide 40 MG TAKE 1 TABLET BY MOUTH EVERY DAY Orally Not-Taking Lactulose 10 GM/15ML TAKE 15 ML BY MOUTH TWICE A DAY FOR 30 DAYS. Oral; Duration: 30 Not-Taking Xifaxan 550 MG TAKE 1 TABLET BY MOUTH EVERY 12 HOURS Oral; Duration: 30 Not-Taking Spironolactone 100 MG TAKE 1 TABLET BY MOUTH EVERY DAY Oral; Duration: 90 Not-Taking D3 Super Strength 50 MCG (1999 UT) TAKE 2 CAPSULES BY MOUTH EVERY DAY Oral; Duration: 90 Not-Taking Omeprazole 40 MG TAKE 1 CAPSULE BY MOUTH TWICE A DAY Oral; Duration: 90 Not-Taking Docusate Sodium 100 MG 1 [...] EVERY DAY Oral; Duration: 90 Not-Taking Nystatin 726754 U/ML as directed Mouth/Throat Not-Taking Flecainide Acetate 100 MG TAKE 1 TABLET BY MOUTH TWICE A DAY Oral; Duration: 90 Not-Taking Vitamin D3 Not-Tommy ornelas Extra Depth Orthopedic Shoes (1 Pair) with Customized Heat Molded Multidensity Innersoles (3 Pair) as directed Dx: NIDDM/Polyneuropathy (E11.42), Hammertoe Foot Deformity (M20.41,M20.42), Preulcerative Skin Lesion(s) (L85.1 08/31/2022 Not-Taking Prednisone Not-Tommy ornelas Fluticasone Propionate (Inhal) 250 MCG/BLIST 1 puff Inhalation Twice a day Not-Taking Clotrimazole-Betametha sone 1-0.05 % APPLY TO AFFECTED AREA TWICE A DAY IN THE MORNING AND IN THE EVENING FOR 2 WEEKS External; Duration: 7 PRN Not-Taking LORazepam 0.5 MG 1 tablet at bedtime as needed Orally Once a day PRN Not-Taking Acyclovir 800 MG 1 tablet Orally Twice a day; Duration: 10 day(s) Not-Taking protonix 1 tab Oral; Duration: 14 days Not-Taking Bactrim Not-Taking Eliquis 5 MG TAKE 1 TABLET BY MOUTH TWICE A DAY Oral; Duration: 90 Active Ondansetron HCl 4 MG TAKE 1 TABLET BY MOUTH EVERY 6 HOURS NEEDED FOR NAUSEA OR VOMITING Oral; Duration: 30 PRN Active Flovent Diskus 250 MCG/ACT INHALE 1 PUFF TWICE A DAY BY FOR 90 DAYS. Inhalation; Duration: 90 Not-Taking Ferrous Sulfate 325 (65 Fe) MG TAKE 1 TABLET BY MOUTH TWICE A DAY Oral; Duration: 90 Active Digoxin 62.5 MCG 1 tablet Orally Once a day Active Magnesium Oxide 400 (240 Mg) MG TAKE 2 TABLETS BY MOUTH 3 TIMES A DAY Oral; Duration: 90 Active HumaLOG KwikPen 100 UNIT/ML INJECT UP TO 30 UNITS DIRECTED THREE TIMES DAILY AFTER MEALS Subcutaneous; Duration: 90 Active Synthroid 137 MCG TAKE 1 TABLET BY MOUTH EVERY DAY Oral; Duration: 90 Active Lovastatin 40 MG TAKE 1 TABLET BY MOUTH AT BEDTIME EVERY NIGHT Oral; Duration: 90 Active Restasis 0.05 % INSTILL 1 DROP INTO BOTH EYES TWICE A DAY Ophthalmic; Duration: 90 Active Ergocalciferol 17531 IU as directed Orally Active Tacrolimus 0.2 MG as directed Orally Active Pain Extra Strength 500 MG 1 tablet as needed Orally every 6 hrs Active Lantus SoloStar 100 UNIT/ML INJECT 50 UNITS INTO SKIN *PLUS 2 UNITS TO PRIME EACH DOSE* Subcutaneous; Duration: 58 Active Mycophenolate Mofetil 250 MG 2 capsules Orally Twice a day; Duration: 30 day(s) Active Torsemide 20 MG 2 tablets Orally Twice daily Active Multivitamin Active Metoprolol Succinate 100 MG 1 capsule Orally twice a day Active Pantoprazole Sodium Active Triamterene-HCTZ Act stephan Xanax 0.5 MG 1 tablet Orally Twice a day Active Arnuity Ellipta 200 MCG/ACT 1 puff Inhalation Once a day Active Social History Tobacco Use: Social History Observation Description Date Details (start date - stop date) Never Smoker NA - NA Tobacco use other than smoking: Question Answer Notes Are you an other tobacco user? No Tobacco Control (Standard) Question Answer Notes Tobacco use: Nonsmoker AUDIT-C (Standard) Question Answer Notes Did you have a drink containing alcohol in the p ast year? No Points 0 Interpretation Negative Vital Signs Height 5ft7in in 07/15/2025 Weight 217 lbs 07/15/2025 BMI 33.98 kg/m2 07/15/2025 Blood pressure systolic 112 mm Hg 07/15/20 25 Blood pressure diastolic 75 mm Hg 025 Encounters Encounter Location Date Provider Diagnosis [facility] [address] [address] 07/15/2025 Munira Crews Tinea unguium B35.1 and Type 2 diabetes mellitus with polyneuropathy E11.42 Assessments Encounter Date Diagnosis (ICD Code) Assessment Notes Treatment Notes Treatment Clinical Notes Section Notes 07/15/2025 Tinea unguium (ICD-10 - B35.1) 07/15/2025 Type 2 diabetes mellitus with polyneuropathy (ICD-10 - E11.42) Plan Of Treatment Next Appt Details Follow Up: 2 Months, Reason: Provider Name:Munira moraes, 09/23/2025 02:45:00 PM, [address] [place], [address], Procedure Notes * Category Sub-Category Detail Notes Debride Nail 6-10 Nail debridement Due to the cl inical pathology outlined in the exam findings, performance of this nail treatment is medically necessary as its management by an unskilled/untrained nonprofessional would put this patients foot and overall health at risk. Therefore, debridement to affected nail(s), as described in exam ( T1, T2, T3, T4 T7, T8, T9, ), was performed exclusively by the physician of record to reduce/remove overall nail length, girth, thickness, subungual debris, and necrotic tissue, by manual and/or electrical means through the use of a nail nipper and/or dremel-type rail grinder, to a more viable healthy nail [...] to maintain effectiveness in symptomatic relief - 54443 Keratoma Treatment Parring or Cutting o f Benign Hyperkeratotic Lesion(s) (-57) More than 4 Lesions - Due to the at risk nature of the patients medical condition as documented in the exam findings, performance of this keratoderma treatment is medically necessary as its management by an unskilled/untrained nonprofessional would put this patients foot and overall health at risk. Therefore, the benign hyperkeratotic lesions, (5) in total, locations as stated and described in the exam ( Medial plantar, IPJ TA, T5, SUB MTH (s), 1, Plantar Heel(s), Plantar, T6), were pared, and/or cut utilizing a sterile 15 blade, tissue nippers, and/or power dremel instrumentation by the physician of record - [id number] Progress Notes * YAJAIRA IsaiasreynaDOB:1960 (65 yo F)Acc No.[id number]:07/15/2025 Progress Note Patient: Elysia HULL Provider: Tylor Crews DPM :1960 A ge:65 Y S ex:Female Date:07/15/2025 Address: [address] , [facility] Pcp:Tony Toure MD Subjective: * Chief Complaints: * A t Risk Footcare * HPI: A t Risk footcare: Pt States Last PCP Visit: D ate 1 * ROS: G eneral/Constitutional: Nausea d enies. V omiting d enies. H mendy Thirst d enies. L oss appetite d enies. C hills d enies. F atigue d enies.?Fever d enies. N ight Sweats d enies. U nexplained weight loss d enies. U nexplained weight gain d enies. H EENTM: Dentures d enies. D izziness d enies. G lasses/contacts a dmits. R etinopathy d enies. B lurred/double vision d enies. T MJ?denies. D ischarge/drainage d enies. I mplants d enies. S ore throat d enies. D ental implants d enies. H javier of hearing d enies. D ifficulty chewing/swallowing/speaking d enies. N ose bleeds d enies. S ore mouth d enies. ? R espiratory: On Oxygen d enies. P neumonia/pleurisy d enies.?Bronchitis d enies. E mphysema d enies. C oughing d enies. C ough blood?denies. S hortness of breath d enies. W heezing d enies. C ardiovascular: Pacemaker d enies. M PULMONARY FUNCTION TECHNOLOGIST d enies. W PW d enies. C HF d enies. H eart attack d enies. S eptal defect d enies. R apid beat d enies. C hest pain d enies. A trial Fib. d enies. M urmur/Palpitations d enies. G astrointestinal: Hemorrhoids d enies. S tomach/Abdominal pain d enies. D ark blood stool d enies. I rritable bowel d enies. C onstipation d enies. D iarrhea d enies. H ematology: Swelling d enies. C lots d enies. V aricose Veins d enies. B ruising d enies. B leeding problem d enies. G enitourinary: Blood urine d enies. F requent/Painfu/urination/bladder control d enies. K idney stones d enies. I nfection (UTI) d enies. N ephropathy d enies. s ex trans dis (STD) d enies. P rostate d enies. M usculoskeletal: Hammertoes d enies. B unions d enies. B ack Pain d enies. M uscle Cramps/ Resting d enies. M uscle cramps / walking d enies.?Generalized aches and pains d enies. W eakness d enies. I nteg.: Schaffer d enies. S cars d enies. C orns/calluses?denies. I ngrown nails d enies. P ainful nails d enies. O pen Sores d enies. R ashes d enies. N eurologic: Difficulty sleeping d enies. B rain disorder d enies. N umbness a dmits. B alance trouble d enies. C onfusion d enies. F ainting/blackouts d enies. T ingling d enies. T remors d enies. * Medical History: * Surgical History: l iver transplant 07/31/2022hysterectomy 02/1999Surgery for infected incision area iopsy on Liver 07/18Tooth removal 08/05/24 * Hospitalization/Major Diagno stic Procedure: [facility] became infected - 3 night stay [facility] - Vomiting 04/2023rejection to medication Liver 05/19 * Family History: F ather: , diagnosed with Other malignant neoplasm of unspecified site, Diabetic - NIDDM. D aughter(s): . M other: diagnosed with Diabetic - NIDDM. S iblings: diagnosed with Other malignant neoplasm of unspecified site, Diabetic - NIDDM, Unspecified essential hypertension. * Social History: T obacco Use: T obacco use other than smoking A re you an other tobacco user? N o Tobacco Control (Standard) T obacco use: N onsmoker M iscellaneous: C affeine: no, 1 cup of tea occassionally. Children: no. Exercise: no. Marital status: . Occupation: Retired. D rug/Alcohol: A JOSELUIS-C (Standard) D id you have a drink containing alcohol in the past year? N o P oints 0 I nterpretation N egative * Medications: T akingArnuity Ellipta 200 MCG/ACT Aerosol Powder Breath Activated 1 puff Inhalation Once a day Xanax 0.5 MG Tablet 1 tablet Orally Twice a day Triamterene-HCTZ Pantoprazole Sodium Multivitamin Torsemide 20 MG Tablet 2 tablets Orally Twice daily Metoprolol Succinate 100 MG Capsule ER 24 Hour Sprinkle 1 capsule Orally , Notes to Pharmacist: twice a dayErgocalciferol 57435 IU Tablet as directed Orally Pain Extra [...] TABLET BY MOUTH TWICE A DAY Oral Ferrous Sulfate 325 (65 Fe) MG Tablet TAKE 1 TABLET BY MOUTH TWICE A DAY Oral Digoxin 62.5 MCG Tablet 1 tablet Orally Once a day Taking Arnuity Ellipta 200 MCG/ACT Aerosol Powder [...] Notes to Pharmacist: twice a dayTaking Ergocalciferol 33812 IU Tablet as directed Orally Taking Pain [...] BY MOUTH TWICE A DAY Oral Taking Ferrous Sulfate 325 (65 Fe) MG Tablet TAKE 1 TABLET BY MOUTH TWICE A DAY Oral Taking Digoxin 62.5 MCG Tablet 1 tablet Orally Once a day Not-Taking/PRNFlovent Diskus 250 MCG/ACT Aerosol Powder Breath Activated INHALE 1 PUFF TWICE A DAY BY FOR 90 DAYS. Inhalation Bactrim LORazepam 0.5 MG Tablet 1 tablet [...] puff Inhalation Twice a day Prednisone Nystatin 540144 U/ML Suspension Reconstituted as directed Mouth/Throat Nadolol [...] List reviewed and reconciled with the patientNot-Taking/PRN Flovent Diskus 250 MCG/ACT Aerosol Powder Breath Activated INHALE 1 PUFF TWICE A DAY BY FOR 90 DAYS. Inhalation Not-Taking/PRN Bactrim Not-Taking/PRN LORazepam 0.5 MG Tablet 1 tablet at bedtime as needed Orally Once a day , Notes to Pharmacist: PRNNot-Taking/PRN protonix 1 tab Oral Not-Taking/PRN Acyclovir 800 MG Tablet 1 tablet Orally Twice a day Not-Taking/PRN Clotrimazole-Betamethasone 1-0.05 % Cream APPLY TO [...] Twice a day Not-Taking/PRN Prednisone Not-Taking/PRN Nystatin 340179 U/ML Suspension Reconstituted as directed Mouth/Throat Not-Taking/PRN [...] DAYS Oral Not-Taking/PRN [facility] Chewable C with Layen Hips 500 MG Tablet Chewable TAKE 1 TABLET BY MOUTH TWICE A DAY Oral Not-Taking/PRN Sodium Chloride 1 GM Tablet as directed Orally Not-Taking/PRN Senna Medication List reviewed and reconciled with the patient * Allergies: T ramadol & Dietary Manage Prod: swellingRosuvastatin Calcium: swellingyes[Allergies Verified] Objective: * Vitals: H t: 5ft7in, Wt:217, BMI:33.98, Shoe size: 9.5, BP:112/75mm Hg, BS: 139, Ht-cm: 170.18 cm, Wt-k.43 kg. * P ast Orders: L ab:HEMOGLOBIN A1C (GLYCOHEMOGLOBIN) (Order Date - 01/20/2025) (Collection Date & Time - 01/20/2025 01:45 PM) Value Reference Range HEMOGLOBIN A1C % (HH) 8.9 * Examination: O phthalmology Referral: DIABETES EYE EXAM P rocedure Performed: Y es D ate of Exam Performed 0 11/23/2024 F indings of Diabetic Eye Exam: n o retinopathy N eurological: SENSORY: ( Neuro) Neurological exam demonstrates a loss of protective sensation by an absence of tested sensitivity to 5.07 [place] monofilament at 2 or more sites out of 5 total locations, each foot. N ails: NAILS are: E longated, overgrown, dystrophic, lytic, greater than 3mm thick, discolored and friable with crumbly malodorous subungual debris , with dull to no pain on palpation due to neuropathy, TA, T1, T2, T3, T4, T5, T7, T8, T9; absent nail T6, scabbed nail bed without infection. D ermatologic: SKIN FINDINGS: S kin exam reveals Keratotic lesion(s) located at , Medial plantar, IPJ TA, T5, SUB MTH (s), 1, Plantar Heel(s), Plantar, T6. ? Assessment: * Assessment: 1. T inea unguium - B35.1 2 . T ype 2 diabetes mellitus with polyneuropathy - E11.42 (Primary) Plan: * Treatment: * Procedures: D ebride Nail 6-10: Nail debridement D ue to the clinical pathology outlined in the exam findings, performance of this nail treatment is medically necessary as its management by an unskilled/untrained nonprofessional would put this patients foot and overall health at risk. Therefore, debridement to affected nail(s), as described in exam ( T1, T2, T3, T4 T7, T8, T9, ), was performed exclusively by the physician of record to reduce/remove overall nail length, girth, thickness, subungual debris, and necrotic tissue, by manual and/or electrical means through the use of a nail nipper and/or dremel- type rail grinder, to a more viable healthy nail [...] to maintain effectiveness in symptomatic relief - [id number]. K eratoma Treatment: Parring or Cutting of Benign Hyperkeratotic Lesion(s) ( -57) More than 4 Lesions - Due to the at risk nature of the patients medical condition as documented in the exam findings, performance of this keratoderma treatment is medically necessary as its management by an unskilled/untrained nonprofessional would put this patients foot and overall health at risk. Therefore, the benign hyperkeratotic lesions, (5) in total, locations as stated and described in the exam ( M edial plantar, IPJ T A, T 5, S UB MTH (s), 1 , P lantar Heel(s), P lantar, T 6), were pared, and/or cut utilizing a sterile 15 blade, tissue nippers, and/or power dremel instrumentation by the physician of record - [id number]. * Procedure Codes: 1 1721 DEBRIDE NAIL, 6 OR MORE, Modifiers: XS 89415 TRIM SKIN LESIONS, OVER 4, Modifiers: XS * Preventive Medicine: Screening/Special Tests: F all Risk Assessment: P erformed Screening: N o falls in the past year F ALLS: Screening for Future Fall Risk Have you had two or more falls in the past year? N o Have you had any falls with injury in the past year? N o * Follow Up: 2 Months * Images: * Sign off status: Completed true * Provider: Tylor Crews DPM Date: Generated for Irma romo/Virgie/Anitra on: 03:44 PM EDT History and Physical Notes * HPI (History of Present Illness) Category Sub-Category Detail Notes Category Not es At Risk footcare Pt States Last PCP Visit: Date: Examination Category Sub-Category Detail Notes Category Not es Neurological SENSORY: (Neuro) Neurolog ical exam demonstrates a loss of protective sensation by an absence of tested sensitivity to 5.07 [place] monofilament at 2 or more sites out of 5 total locations, each foot Dermatologic SKIN FINDINGS: Skin exam reveal s Keratotic lesion(s) located at , Medial plantar, IPJ TA, T5, SUB MTH (s), 1, Plantar Heel(s), Plantar, T6 Ophthalmology Referral DIABETES EYE EXAM Procedu re Performed:: Yes Date of Exam Performed: 11/23/2024 Findings of Diabetic Eye Exam:: no retin opathy Nails NAILS are: Elongated, overg rown, dystrophic, lytic, greater than 3mm thick, discolored and friable with crumbly malodorous subungual debris , with dull to no pain on palpation due to neuropathy, TA, T1, T2, T3, T4, T5, T7, T8, T9; absent nail T6, scabbed nail bed without infection
--- NOTE | ~2025-07-18 | XR_ITS ---
EXAMINATION: XR ANKLE, LEFT CLINICAL INFORMATION: LEFT ANKLE PAIN. COMPARISON: None available. TECHNIQUE: AP, lateral, and mortise views of the left ankle. FINDINGS: No fracture. Alignment is anatomic. No erosions. Joint spaces are maintained. Large plantar calcaneal spur. No significant ankle joint effusion. No abnormal soft tissue calcification. XR/XR ankle LT min 3V IMPRESSION: No acute findings. Large plantar calcaneal spur Electronically signed by: Franky Ramirez MD 07/18/2025 04:57 PM EDT
--- OUTSIDE RECORDS SUMMARY | 2025-07-18 15:43 | XMS_ITS | Data Portability ---
Author Organization [facility], Telehealth Patient Home Address [address] [place] [address] Assessment No assessment recorded. Plan of Treatment Reminders Order Date Submit Date Provider Last Modified By Organization Details Last Modified Time Details Appointments FOLLOW UP 15 2025 02:15P TRINO HOPKINS Not available Not available Not available Lab urinalysi s complete, reflex culture 2024 025 [facility] Lab Draw Station, Formerly [facility] [address], [place], [address], 04/21/2025 14:56:50 Referral None recorded. Procedures None recorded. Surgeries None recorded. Imaging XR, ankle, 3 or more view 2024 025 [email or web address] [facility] (Imaging), [address] [place] [address], [address], 07/14/2025 14:47:14 XR, lumbosacr al spine, 2 or 3 view 2024 025 [facility] [address] [place] [address], [address], 04/07/2025 08:54:49 Medication Orders silver sulfadiaz ine 1 % topical cream 2024 025 [facility]/Pharmacy #[id number], [address] [place], [address], 07/14/2025 14:36:49 Compazine 10 mg tablet 2024 025 [facility]/Pharmacy #[id number], [address] [place], [address], 04/29/2025 12:15:46 prednison e 20 mg tablet 2024 025 [facility]/Pharmacy #[id number], [address] [place], [address], 07/14/2025 14:40:10 baclofen 20 mg tablet 2024 025 [facility]/Pharmacy #[id number], [address] [place], [address], 07/14/2025 14:37:43 ondansetr on HCl [address] [id number] [address] [place], [address], 01/20/2025 14:38:58 Patient TargetsNo targets recorded. Patient InstructionsNo instructions recorded. Reason for Referral None Reported. Results Created Date Observation Date Name Description Value Unit Range Abnormal Flag Note LastModifiedBy Organization Detail LastModifiedTime 03/22/2003/22/2025 CT, angio gram, head + neck, w/wo contr ast No observ ation record ed. [email or web address] [facility] (Medical Records) [address] [place], [address], 03/24/2025 08:34:55 03/22/20 25 03/22/2025 XR, chest , 2 view No observ ation record ed. [email or web address] (Medical Records) [address] [place], [address], 03/23/2025 08:43:57 03/22/20 25 03/22/2025 XR, chest , 2 view No observ ation record ed. [email or web address] (Medical Records) [address] [place], [address], 03/23/2025 08:44:22 03/23/20 25 03/23/2025 CT, angio gram, head + neck, w/wo contr ast No observ ation record ed. [email or web address] [facility] (Medical Records) [address] [place], [address], 03/24/2025 08:34:41 03/25/20 25 03/25/2025 CT, abdom en + pelvi s, w/o contr ast No observ ation record ed. [email or web address] [facility] (Medical Records) [address] [place], [address], 03/26/2025 08:10:06 Result Notes None recorded. Problems Name Problem SNOMED Code Status Onset Date Resolution Date Notes Provider Name and Address Organization Details Recorded Time Type 2 diabetes mellitus 22226828 Active 2017 Not Available [facility] 2 17:56:09 Hypothyr oidism 10056162 Active 2017 Not Available [facility] 2 17:56:09 Hypercho lesterol emia 93646624 Active 2017 Not Available [facility] 2 17:56:09 Acid reflux 281480213 Active 2017 Not Available [facility] 2 17:56:09 [facility] hyperten eric 15432367 Active 2017 Not Available [facility] 2 17:56:09 Pulmonar y hyperten eric 86625290 Active 2017 Not Available [facility] 2 17:56:09 Sarcoido sis 34860576 Active 2017 Dr. Kiera Reed Not Available [facility] 2 17:56:09 Atrial fibrilla tion 92447716 Active 2017 Not Available [facility] 2 17:56:09 Esophage al varices 07748289 Active 2017 Not Available [facility] 2 17:56:09 Adrenal adenoma 167407342 Active 2017 Not Available [facility] 2 17:56:09 Steatoti c liver disease 940522978 Active 2017 Not Available [facility] 2 17:56:09 Splenic infarcti on 82622216 Active 2021 Not Available [facility] 2 17:56:09 Portal vein thrombos is 16364888 Active 2021 Not Available [facility] 2 17:56:09 Pressure ulcer Active 2021 Not Available [facility] 2 17:56:09 Edema of lower extremit y 413519386 Active 2021 Not Available [facility] 2 17:56:09 Gastroes ophageal reflux disease 535363691 Active 2021 Not Available [facility] 2 17:56:09 Chronic kidney disease stage 3 482682864 Active 2021 Not Available [facility] 2 17:56:09 Vasculit is of the skin 16987182 Active 2021 Not Available [facility] 2 17:56:09 Transpla nted liver present 166687598 Active 2022 TRINO ZARAGOZA [address] [place], [address], [facility] 3 14:21:59 Intermit tent claudica tion 23035958 Active 2022 TRINO ZARAGOZA [address] [place], [address], [facility] 3 16:01:13 Peripher al venous insuffic iency 27765533 Active 2022 TRINO ZARAGOZA [address] [place], [address], [facility] 3 16:01:43 Skin ulcer 47877382 Active 2022 TRINO ZARAGOZA [address] [place], [address], [facility] 3 16:04:37 Transpla ntation of liver Active 2022 TRINO ZARAGOZA [address] [place] [address], [address], [facility] 3 16:07:06 Insomnia 018223985 Active 2022 TRINO ZARAGOZA [address] [place] [address], [address], [facility] 3 14:53:51 Trigger finger of right hand 42423986126 680676 Active 2022 TRINO ZARAGOZA [address] [place] [address], [address], [facility] 3 16:07:03 Tendinit is of left gluteal tendon 00012098174 9108 Active 2022 TRINO ZARAGOZA [address] [place] [address], [address], [facility] 3 16:10:56 Candidia sis of skin 97986878 Active 2022 TRINO ZARAGOZA [address] [place] [address], [address], [facility] 3 16:21:15 Asthma 592863332 Active 2023 TRINO ZARAGOZA [address] [place] [address], [address], [facility] 4 14:52:04 Lipoma of back 823027769 Active 2023 TRINO ZARAGOZA [address] [place] [address], [address], [facility] 4 15:09:55 Peripher al vascular disease 494284767 Active 2023 TRINO ZARAGOZA [address] [place] [address], [address], [facility] 4 11:21:48 Acute urinary tract infectio n 417678496 Active 2023 TRINO ZARAGOZA [address] [place] [address], [address], [facility] 5 14:42:33 Lesion of liver 800133088 Active 2023 TRINO ZARAGOZA [address] [place], [address], [facility] 4 11:26:53 Abdomina l pain 59362338 Active 2023 TRINO ZARAGOZA [address] [place] [address], [address], [facility] 4 14:39:40 Palpitat ions 79277054 Active 2024 TRINO ZARAGOZA [address] [place] [address], [address], [facility] 5 14:42:29 Nausea 898765374 Active 2024 TRINO ZARAGOZA [address] [place] [address], [address], [facility] 5 14:38:52 Typical atrial flutter 380127878 Active 2024 TRINO ZARAGOZA [address] [place] [address], [address], [facility] 5 14:45:06 Acute back pain with sciatica 079857939 Active 2024 TRINO ZARAGOZA [address] [place] [address], [address], [facility] 5 14:24:30 Bilious vomiting 25618277 Active 2024 TRINO ZARAGOZA [address] [place] [address], [address], [facility] 5 12:13:08 Cellulit is of toe of right foot Active 2024 TRINO ZARAGOZA [address] [place] [address], [address], [facility] 5 14:27:19 Acute ankle pain 96058661899 105 Active 2024 TRINO ZARAGOZA [address] [place] [address], [address], [facility] 5 14:29:22 Notes:Some problems listed i n Documents: #[id number], #[id number] could not be added to this patient's chart. Please review these documents and add these problems to the patient's chart manually as needed. Problem Notes None recorded. Procedures Surgical History Date Name Laterality Status Provider Name and Address Organization Details Recorded Time 03/04/20 19 I&D completed Marina [address], [address], [facility] 03/04/2019 14:43:51 02/23/20 19 I&D completed Marina [address], [address], [facility] 02/22/2019 15:12:47 Partial Hysterectomy completed Neva Strong NP, S [address] [place] [address], [address], [facility] 06/22/2018 15:38:16 Imaging Results None recorded. Procedure Notes None recorded. Medical Equipment None Reported. Allergies Allergen ID Allergen Name Allergen Category Reaction Reaction Severity Criticality Documentation Date Start Date Code Code System Note Provider Name and Address Organization Details Recorded Time 481 lisinopri l medicatio n Not available Not available Not available 12/05/2017 18039 RxNorm Seble [facility] 8 11:41:04 482 Augmentin medicatio n Not available Not available Not available 12/05/2017 30427 2 RxNorm December [facility], [facility] [address] [place], [address], [facility] 9 16:14:00 486 tramadol medicatio n Not available Not available Not available 12/05/2017 03773 RxNorm Seble [facility] 8 12:05:04 488 Reglan medicatio n Not available Not available Not available 12/05/2017 9230 RxNorm Seble [facility] 8 12:05:35 9411 Mounjaro medicatio n Not available Not available Not available 07/14/2025 75492 34 RxNorm TRINO ZARAGOZA [address] [place], [address], [facility] 14:22:15 Medications Name Sig Start Date Stop Date [...] BY TOPICAL ROUTE 2 TIMES PER DAY 2024 active Not Available Not Available Not Avai lable metformin 500 mg tablet TAKE 1 TABLET BY MOUTH EVERY DAY 08/21 completed Not Available Not Available Not Available nystatin 100,000 unit/mL oral suspension 10/28 completed Not Available Not Available Not Available torsemide 20 mg tablet TAKE ONE TABLET QD 07/14 completed Not Available Not Available Not Available azithromyci n 250 mg tablet TAKE [...] MOUTH EVERY 6 HOURS NEEDED FOR PAIN 07/14 completed Not Available Not Available Not Available Synthroid 150 mcg tablet Take 1 tablet every day by oral route. 11/13 completed Not Available Not Available Not Available mycophenola te mofetil 250 mg capsule Take 2 capsules twice a day by oral route. 07/14 completed Not Available Not Available Not Available Claritin 10 mg tablet Take 1 [...] No t Available prednisone 20 mg tablet TAKE 1 TABLET BY MOUTH EVERY DAY DIRECTED FOR 7 DAYS 07/14 completed Not Available Not Available Not Available lovastatin 40 mg tablet TAKE 1 [...] completed Not Available Not Available Not Available prochlorper azine maleate 10 mg tablet TAKE 1 TABLET BY MOUTH THREE TIMES A DAY NEEDED 2024 active Not Available Not Available Not Avai lable ciprofloxac in 500 mg tablet TAKE 1 [...] Available Not Available baclofen 20 mg tablet TAKE 1 TABLET BY MOUTH TWICE A DAY NEEDED FOR 7 DAYS 07/14 completed Not Available Not Available Not Available [...] Available cephalexin 500 mg capsule TAKE 1 CAPSULE BY MOUTH EVERY 12 HOURS 04/21 completed Not Available Not Available Not Available pantoprazol e 40 mg tablet,lisa yed release 07/14 completed Not Available Not Available Not Available ferrous sulfate 325 mg (65 mg iron) tablet TAKE 1 TABLET BY MOUTH TWICE A DAY 07/14 completed Not Available Not Available Not Available nystatin 100,000 unit/gram topical cream APPLY [...] (vitamin D2) 1,250 mcg (50,000 unit) capsule 07/14 completed Not Available Not Available Not Available loteprednol etabonate 0.5 % eye drops,suspe nsion 10/28 completed Not Available Not Available Not Available cefuroxime axetil 500 mg tablet 06/22 completed Not Available Not Available Not Available lovastatin 20 mg tablet Take 2 tablets every day by oral route. 02/11 completed Not Available Not Available Not Available ketoconazol e 2 % topical cream APPLY TO AFFECTED AREA EVERY DAY active Not Available Not Available [...] Not Available Not Available Not Available Restasis 07/14 completed Not Available Not Available Not Available BD Ultra-Fine Original Pen Needle 29 gauge x 1/2 INJECT 1 EACH DIRECTED 4 (FOUR) TIMES A DAY BEFORE MEALS AND NIGHTLY. active Not Available Not Available No t Available Lantus Solostar U-100 Insulin 100 unit/mL (3 mL) subcutaneou s pen INJECT 45 UNITS UNDER THE SKIN NIGHTLY AT BEDTIME. active Not Available Not Available No t Available Lantus Solostar U-100 Insulin 50 Units PM 11/25 completed Not Available Not Available Not Available Humalog KwikPen Insulin Sliding scale 04/07 completed Not Available Not Available Not Available cholecalcif mio (vitamin D3) 50 mcg (2,000 unit) capsule TAKE 1 CAPSULE BY MOUTH AT BEDTIME 07/14 completed Not Available Not Available Not Available GaviLyte-N 420 gram oral solution 06/22 completed Not Available Not Available Not Available GaviLyte-G 236 gram-22.74 gram-6.74 gram-5.86 gram oral solution PLEASE SEE ATTACHED FOR DETAILED DIRECTION S 07/14 completed Not Available Not Available Not Available [...] 200 mcg/actuati on powder for inhalation INHALE ONE PUFF BY MOUTH EVERY DAY active Not Available [...] in Arterial blood by Pulse oximetry Systolic And Diastolic Provider Name and Address Organization Details Last Updated DateTime 5 171.45 cm 34 kg/m2 41145.6 8 g 38 /min 96 % 96 % 148/82 mm[Hg] [facility] 5 14:26:53 Date Recorded Body height Body mass index (BMI) Body weight Oxygen saturation Oxygen saturation in Arterial blood by Pulse oximetry Provider Name and Address Organization Details Last Updated DateTime 03/21/2025 171.45 cm 32.7 kg/m2 74661.3 g 98 % 98 % Kerri Peters [facility] 5 14:17:36 Date Recorded Body height Body mass index (BMI) Body weight Heart rate Oxygen saturation Oxygen saturation in Arterial blood by Pulse oximetry Systolic And Diastolic Provider Name and Address Organization Details Last Updated DateTime 5 171.45 cm 32.7 kg/m2 85170.5 8 g 123 /min 98 % 98 % 120/80 mm[Hg] Bekah Hart [facility] 5 14:21:33 Date Recorded Body height Body mass index (BMI) Body weight Heart rate Oxygen saturation Oxygen saturation in Arterial blood by Pulse oximetry Systolic And Diastolic Provider Name and Address Organization Details Last Updated DateTime 5 171.45 cm 31.6 kg/m2 26420.4 4 g 40 /min 97 % 97 % 118/78 mm[Hg] Mayra Narayanan [facility] 5 11:54:49 Date Recorded Body height Body mass index (BMI) Body weight Heart rate Oxygen saturation Oxygen saturation in Arterial blood by Pulse oximetry Systolic And Diastolic Provider Name and Address Organization Details Last Updated DateTime 5 171.45 cm 31.6 kg/m2 70304.4 4 g 67 /min 9 % 9 % 140/72 mm[Hg] Bekah Hart [facility] 5 14:16:27 Social History Question Answer Notes LastModified by Organizat ion Details LastModified Time Tobacco Smoking Status [email or web address] 01/22/2018 09:03:51 What Was The Date Of Your Most Recent Tobacco Screening? 07/14/2025 [email or web address] Information not available 07/14/2025 Sex: Unknown Functional Status Question Answer Note LastModified by Organization D etails LastModified Time Do you or have you ever used any other forms of tobacco or nicotine? No [email or web address] Information not available 12/06/2021 Mental Status None recorded. Family History Nothing Reported. Medical History Condition Response Coronary Artery Disease N Gout N Blood Diseases N Hyperthyroidism N Breast Cancer N Depression N COPD N Lung Disease Y Hypothyroidism Y Defects or Inherited Disease N Anesthesia Complications N Anxiety Disorder N Meniere's disease N Obesity Y Arthritis N Mental Disorder N High Cholesterol Y Liver Disease Y Allergies/Hayfever N Heart Problems Y Hospitalizations Y Thyroid Problems Y Anemia Y Mental Illness N Diabetes Y Congestive Heart Failure (CHF) N Abuse/Domestic Violence N Diverticulitis N Asthma N Hepatitis Y Heart Disease N Pulmonary Embolism N Hypertension Y Autism Spectrum Disorder (ASD) N Gynecological HistoryNo gynecological history recorded. Obstetrics History GPAL:G 0 P 0 0 0 0 Immunizations Vaccine Type Date Status Note Provider Nam e and Address Organization Details Recorded Time COVID-19, mRNA, LNP-S, PF, 100 mcg/0.5mL dose or 50 mcg/0.25mL dose 1 completed Not Available [facility] 10/27/2023 13:24:45 COVID-19, mRNA, LNP-S, PF, 100 mcg/0.5mL dose or 50 mcg/0.25mL dose 1 completed Not Available [facility] 10/27/2023 13:24:45 Tdap 0 completed Not Available [facility] 10/27/2023 13:24:45 COVID-19, mRNA, LNP-S, PF, 30 mcg/0.3 mL dose 1 completed Not Available [facility] 10/27/2023 13:24:45 Hep B, unspecified formulation 1 completed Not Available [facility] 10/27/2023 13:24:45 Influenza, split virus, quadrivalent, preservative 1 completed Not Available [facility] 10/27/2023 13:24:45 Past Encounters Encounter ID Performer Location Encounter Start Date Encounter Closed Date Diagnosis/Indication Diagnosis SNOMED-CT Code Diagnosis ICD10 Code Diagnosis IMO Codes Diagnosis Note [id number] Tony Toure DO [facility] [address] [facility],[place] [address] 01/22/2018 08:53:35 01/22/2018 10:08:56 Calcific tendinitis of shoulder 66704170 M75.31 Insulin tr eated type 2 diabetes mellitus 661226003 Z79.4 stable, follow Shoulder joint pain 2679 01005 M25.519 Essential hypertension 21050488 I10 stable [id number] Tony Toure DO [facility] [address] [facility],[place] [address] 02/14/2018 09:02:06 02/16/2018 09:30:37 Tick bite 70133472 S30.861A Paroxysmal atrial fibrillation 796313716 I48.0 stable with eliquis, flecainide await appt in [facility] keep appt next week with DR. Bach be seen urgently if A-fib recurs and is persistant Type 2 luciano betes mellitus 02118772 E11.9 follow Essential hypertension 36962341 I10 well controlled [id number] Tony Toure [facility] [address] [facility] [address] 04/13/2018 09:00:10 04/13/2018 09:44:20 Hypomagnesemia 270421918 E83.42 Type 2 luciano betes mellitus 31390200 E11.9 follow Paroxysmal atrial fibrillation 086316032 I48.0 stable Hypothyroidism 84946072 E03.9 Essential hypertension 64533176 I10 well controlled Hypercholesterolemia 136 62284 E78.00 [id number] Tony Toure [facility] [address] [facility], [place] [address] 05/15/2018 11:42:51 05/15/2018 12:22:09 Esophageal varices 17528795 I85.00 recent banding Atrial fibrillation 4943 6004 I48.91 on eliquis Essential hypertension 79790017 I10 well controlled Dehydration 10447260 E86 .0 resolved in [facility] [id number] Tony Toure DO [facility] [address] [facility] [address] 06/22/2018 14:59:39 06/22/2018 16:24:53 Chronic pelvic pain of female 533006239 R10.2 Esophageal varices 82302 008 I85.00 scheduled for third banding next week Type 2 luciano betes mellitus 72313470 E11.9 A1C 7.6 [id number] Tony Toure [facility] [address] [facility],[place] [address] 07/17/2018 09:12:56 07/20/2018 08:36:51 Hypercholesterolemia 37196847 E78.00 Esophageal varices 61287 008 I85.00 banding last week with f/u in 2 weeks Hypothyroidism 71632642 E03.9 Type 2 luciano betes mellitus 51630212 E11.9 A1C 7.6 Essential hypertension 42699308 I10 well controlled Hypomagnesemia 391645938 E83.42 Acute cystitis 50863480 N30.00 [id number] Tony Toure [facility] [address] [facility],[place] [address] 08/03/2018 14:20:10 08/03/2018 15:49:59 Hypomagnesemia 680064669 E83.42 Doing labs today after visit Esophageal varices 10239 008 I85.00 3 bands 07/25- follow Atrial fibrillation 4943 6004 I48.91 on eliquis Essential hypertension 52401346 I10 well controlled , continue off olmesartan [id number] Tony Toure [facility] [address] [facility],[place] [address] 09/11/2018 15:42:46 09/14/2018 11:18:25 Acute cystitis 10343697 N30.00 [facility] 85500885 M25.519 rest, prn ice, call if persistent [id number] Tony Toure DO [facility] [address] [facility],[place] [address] 11/14/2018 13:43:31 11/14/2018 15:09:29 Type 2 diabetes mellitus 02219168 E11.9 follow Esophageal varices 89264 008 I85.00 banded Atrial fibrillation 4943 6004 I48.91 on eliquis Hypercholesterolemia 136 64999 E78.00 Hypothyroidism 50143214 E03.9 Essential hypertension 59021668 I10 well controlled , Diarrhea 83725080 R19.7 Eczema 24479076 L30.9 OTC eucerin BID, Tony Toure [facility] [address] [facility],[place] [address] 02/11/2019 13:57:01 02/11/2019 15:01:26 Abscess 785829603 L02.91 too swollen for proc today will give abx warm compress and gentle massage schedule i&d for next week Jaundice 70607760 R17 very mild has liver and gi specialist . seeing gi next week. seeing liver specialist in february for upper and lower endoscopy Metabolic dysfunction-associate d steatohepatitis 551693040 K75.81 check u/s for ascites written order for ab u/s Dyspnea on exertion 6084 5006 R06.09 written order for cxr [id number] Tony Toure [facility] [address] [facility],[place] [address] 02/22/2019 14:14:29 02/22/2019 15:22:55 Abscess 031714815 L02.91 attempted to numb with 1.5 cc of lidocaine, but abscess was too swollen for complete anesthesia used 18 guage needle to create opening of which copious discharge was expressed will give additional week of abx warm compress and gentle massage schedule repeat i&d for next week Jaundice 23788590 R17 not apparent today has liver and gi specialist . seeing gi next week. seeing liver specialist in february for upper and lower endoscopy Metabolic dysfunction-associate d steatohepatitis 757329632 K75.81 await us Dyspnea on exertion 6084 5006 R06.09 [place] [id number] Tony Toure [facility] [address],[place] [address] 03/04/2019 14:01:30 03/04/2019 15:25:18 Abscess 799625295 L02.91 f/u as planned the , sooner if needed Jaundice 02513370 R17 not apparent today has liver and gi specialist . seeing gi next week. seeing liver specialist in february for upper and lower endoscopy Metabolic dysfunction-associate d steatohepatitis 009279424 K75.81 await us results pt had us done last week Dyspnea on exertion 6084 5006 R06.09 xr was clear will reevaluate at fu Submammary intertrigo 24 2465057 L30.4 [id number] Tony Toure [facility] [address] [facility],[place] [address] 03/13/2019 14:16:29 03/13/2019 14:37:51 Type 2 diabetes mellitus 38005396 E11.9 sees endocrinol ogy every 3 months will get labs with endo Esophageal varices 42817 008 I85.00 banded having endoscopy on 03/27 for another banding if needed Atrial fibrillation 4943 6004 I48.91 on eliquis Hypercholesterolemia 136 75259 E78.00 on lovastatin Hypothyroidism 17470670 E03.9 normal in january 2019 Essential hypertension 02166982 I10 well controlled , Diarrhea 43090399 R19.7 resolved Eczema 82156590 L30.9 resolved Insomnia 793193932 G47.0 0 rare use of lorazepam maybe once per month Vitamin D deficiency 347 86199 E55.9 [id number] Tony Toure [facility] [address] [facility],[place] [address] 05/21/2019 11:45:40 05/21/2019 12:20:38 Chronic tension-type headache 958142821 G44.229 ? stress related seem to be improving Type 2 luciano betes mellitus 44152611 E11.9 sees endocrinol ogy every 3 months will get labs with endo Essential hypertension 76387321 I10 well controlled [id number] Tony Toure [facility] [address] [facility],[place] [address] 06/04/2019 16:00:31 06/04/2019 16:31:49 Type 2 diabetes mellitus 74095272 E11.9 sees endocrinol ogy every 3 months will get labs with endo Essential hypertension 02356853 I10 well controlled Temporal headache 117234 06 R51 Acute sinusitis 42658758 J01.90 will consider medrol dose pack if esr is normal may also consider flonase [id number] Tony Toure [facility] [address] [facility],[place] [address] 07/15/2019 13:28:27 07/15/2019 14:30:04 Type 2 diabetes mellitus 12362369 E11.9 sees endocrinol ogy every 4 months will get labs with endo gets foot exa with endo had dm eye exam in september, due again in september Esophageal varices 42467 008 I85.00 banded had endo/cscop e 03/27 all normal Atrial fibrillation 4943 6004 I48.91 on eliquis Hypercholesterolemia 136 25754 E78.00 on lovastatin will have labs with endo Hypothyroidism 97685079 E03.9 normal in january 2019 Essential hypertension 09713918 I10 well controlled Insomnia 042279207 G47.0 0 using 2-3 times per week not sleeping well having trouble falling asleep lorazepam only helps intermitte ntly sometimes takes tylenol and that helps Body mass index 30+ - obesity 503274675 Z68.34 Active or passive immunization 603224736 Z23 had flu shot due for tdap next year Frontal headache 1177176 05 R51 [id number] Tony Toure DO [facility] [address] [facility],[place] [address] 11/13/2019 15:00:05 11/13/2019 16:22:05 Type 2 diabetes mellitus 80345761 E11.9 sees endocrinol ogy every 4 months will get labs with endo gets foot exa with endo had dm eye exam in september, due again in september Esophageal varices 46708 008 I85.00 banded had endo/cscop e 03/27 all normal Atrial fibrillation 4943 6004 I48.91 on eliquis Hypercholesterolemia 136 76771 E78.00 on lovastatin will have labs with endo Hypothyroidism 67683536 E03.9 normal in january 2019 labs with endo usually Essential hypertension 49700426 I10 well controlled Insomnia 344006224 G47.0 0 sleeping better very rare need for lorazepam, maybe once a month Body mass index 30+ - obesity 922186183 Z68.34 Nausea 504192731 R11.0 try tums, evaluate diet if sx worsen consider f/u with gi Dizziness 831359878 R42 monitor, very mild Fatigue 88669417 R53.83 will see endo for that as well Vitamin D deficiency 347 45936 E55.9 Edema of l ower extremity 686779446 R60.0 she is on spironolac tone/lasix for liver started by GI seems likely it was related to diet already improving continue to monitor weights daily and call if increasing [id number] DO Peter Flore[facility] [address] [facility],[place] [address] 02/26/2020 10:48:59 02/26/2020 11:34:18 Nausea and vomiting 51722013 R11.2 patient reports loss of appetite and vomiting for the last week [id number] Tony Georgina Toure [facility] [address] [facility],[place] [address] 03/13/2020 15:32:36 03/13/2020 16:22:32 Atrial fibrillation 03217307 I48.91 stable Hepatic encephalopathy 67240848 K72.90 the patient reports brain fog Hepatorenal syndrome 512 31734 K76.7 will check ammonia level in the body and see how it is doing Jaundice 82604410 R17 pt is still jaundiced [id number] Tony ChinPati Toure [facility] [address] [facility],[place] [address] 06/05/2020 10:38:36 06/05/2020 14:21:19 Hepatic failure 30179403 K72.90 will recheck ammonia level if better can stop the lactulose and just monitor Acid reflux 606657341 K2 1.9 will try taking omeprazole in the morning and see if improvemen t can take two if needed Type 2 luciano betes mellitus 31970664 E11.9 stable per last blood draw [id number] Tony Georgina Toure [facility] [address] [facility],[place] [address] 08/25/2020 14:10:45 08/25/2020 14:58:53 Hypercholesterolemia 96407843 E78.00 will check cholestero l Atrial fibrillation 4943 6004 I48.91 stable Essential hypertension 27810260 I10 BP excellent today Type 2 luciano betes mellitus 26655876 E11.9 consulting with cardiology on adjustment s [id number] Tony Toure [facility] [address] [facility] [address],[place] [address] 11/25/2020 13:27:35 11/25/2020 14:57:41 Essential hypertension 17658349 I10 BP excellent today will need to fu with her cardiologi st Atrial fibrillation 4943 6004 I48.91 may be having runs of afib due to the fact her medication Type 2 luciano betes mellitus 81586149 E11.9 consults with endo with A1c measuremen t will need to fu with them for BW Hypothyroidism 78002845 E03.9 will fu with endo tomorrow for lab work Depressive disorder 3748 3852 F32.9 will start on sertraline and fu to see how she is doing [id number] Tony Toure DO [facility] [address] [facility] [address],[place]am [facility] [place] [address] 01/04/2021 09:44:57 01/04/2021 10:38:55 Atrial fibrillation 65467726 I48.91 the patient was told by ER that she was having atrial fibrillati on Pain of ri ght hip joint 3333205273 44405 M25.551 possible back or hip pain XR lumbar spine normal at specialist told by specialist given liver failure safest thing to take is vicodin or percocet [id number] Tony Toure DO [facility] [address] [facility],[place]abila Elam [facility] [place] [address] 04/07/2021 15:22:16 04/07/2021 15:56:03 Type 2 diabetes mellitus 49711740 E11.9 consults with endo with A1c measuremen t will need to fu with them for BW Atrial fibrillation 4943 6004 I48.91 the patient was told by ER that she was having atrial fibrillati on Essential hypertension 00924077 I10 BP excellent today will need to fu with her cardiologi st Hepatic failure 05840731 K72.90 will recheck ammonia level if better can stop the lactulose and just monitor Varicose v eins of lower extremity 22690783 I83.893 discussed US duplex for her varicose veins to see the extenttold patient to wear compressio n stockings Intermitte nt claudication 98429665 I73.9 will start with US duplex Steatotic liver disease 214124473 K76.0 has fu with specialist [id number] Tony Toure DO [facility] [address] [facility] [address],[place] [facility] [place] [address] 07/14/2021 14:36:41 07/14/2021 15:35:20 Hypercholesterolemia 35212502 E78.2 recent check Abdominal mass 701548333 R19.02 will fu with US Type 2 luciano betes mellitus 68467454 E11.9 consults with endo with A1c measuremen t will need to fu with them for BW Steatotic liver disease K76.0 has fu with specialist Atrial fibrillation 4943 6004 I48.0 stable Chronic he patic failure 564107692 K72.10 on transplant list, follows Hepatic encephalopathy 47429225 K72.10 stable on lactulose with recent test [id number] Tony Toure [facility] [address] [facility],[place] [address] 08/18/2021 10:18:23 08/18/2021 12:37:00 Splenic infarction 07261384 D73.5 fu with [facility] Portal vei n thrombosis 89318703 I81 will fu with endo Atrial fibrillation 4943 6004 I48.0 stable Esophageal varices 81127 008 I85.00 has fu with endo to check for bleeds and if switch from Steatotic liver disease 322597615 K76.0 has fu with specialist as well 45404 Tony Toure [facility] [address] 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, [place] [address] 10/22/2021 08:46:19 10/22/2021 15:45:16 Atrial fibrillation 57211600 I48.0 stable Chronic he patic failure 747887851 K72.10 on transplant list, follows Esophageal varices 32682 008 I85.00 monitoring her bleeding Essential hypertension 16287447 I10 BP excellent today will need to fu with her cardiologi st [id number] Tony Toure [facility] [address] [facility],[place] [address] 12/06/2021 14:29:25 12/06/2021 15:01:19 Hypothyroidism 01440569 E03.9 Type 2 luciano betes mellitus 52237539 E11.9 will be rech and get a1c and will be seeing her in november Atrial fibrillation 4943 6004 I48.0 quiet and asymptomat ic Essential hypertension 24947716 I10 quiet and stable Chronic he patic failure 255702309 K72.10 still waiting for liver transplant Fatigue 28890186 R53.83 [id number] Tony Toure [facility] [address] [facility],[place] [address] 01/31/2022 11:18:52 01/31/2022 12:07:22 Pressure ulcer 551300435 L89.899 will start on silvadene cream Candidiasis of skin 4988 3006 B37.2 given topical anti-funga l at home Atrial fibrillation 4943 6004 I48.0 stablestop ping eliquis and starting warfarin from specialist 38338 Tony Toure [facility] [address] [facility],[place] [address] 03/02/2022 11:40:03 03/02/2022 16:36:21 Atrial fibrillation 90779555 I48.0 stable Edema of l ower extremity 181706314 R60.0 will increase lasix to 30 mg and recheck a CMP Gastroesop hageal reflux disease 898665577 K21.9 will fu with omeprazole Cirrhosis of liver K74.02 will recheck her ammonia level [id number] Tony Toure [facility] [address] [facility],[place] [address] 04/01/2022 14:20:42 04/01/2022 15:36:34 Type 2 diabetes mellitus 00905658 E11.9 consults with endo with A1c measuremen t will need to fu with them for BW Essential hypertension 42315175 I10 BP excellent today will need to fu with her cardiologi Cough 33044798 R05.1 will give melitaloalisa yan for cough Chronic ki dney disease stage 3 428293013 N18.31 will recheck CMP in two weeks after increase of lasix Edema of l ower extremity 209727914 R60.0 will increase lasix to 40mg and recheck a CMP 76294 Tony Toure [facility] [address] [facility],[place] [address] 06/22/2022 13:28:15 06/22/2022 14:25:21 Atrial fibrillation 88841606 I48.0 stableneed s refill warfarin Chronic ki dney disease stage 3 764801558 N18.31 stable Cirrhosis of liver 80068 007 K74.02 stable 07504 Tony Toure [facility] [address] [facility], [place] [address] 07/29/2022 14:42:13 08/01/2022 09:09:56 Vasculitis of the skin 39415633 L95.8 fu in two weeks Internatio nal normalized ratio above reference range 828607657 R79.1 monitor through clinic [id number] Tony Toure [facility] [address] [facility],[place] [address] 10/28/2022 08:24:24 10/28/2022 14:45:46 Atrial fibrillation 92466146 I48.0 stableback on eliquis Hypothyroidism 06687637 E03.8 will f/u with endo tomorrow for lab work Type 2 luciano betes mellitus 59534784 E11.9 consults with endo with A1c measuremen t Essential hypertension 51128919 I10 BP excellent today will need to fu with her cardiologi Advance care planning 71 4216709 Z71.89 on file Active or passive immunization 215647791 Z23 patient advised she is due for flu shot, tdap & shingles Chronic ki dney disease stage 3 079627612 N18.31 stable Chronic he patic failure 544690268 K72.10 on transplant list, follows Transplant ed liver present 273122567 Z94.4 doing really well [id number] Tony Toure DO [facility] [address] [facility] [address],[place] [address] 01/25/2023 16:20:44 01/25/2023 17:00:20 Edema of lower extremity 169595090 R60.0 will fu with transplant surgeon [id number] Tony Toure [facility] [address] [facility],[place] [address] 02/07/2023 15:32:41 02/07/2023 17:23:08 Edema of lower extremity 373422909 R60.0 agreed to US venous and US arterial Splenic infarction 17626 003 D73.5 fu with [facility] Chronic ki dney disease stage 3 343763120 N18.31 stable Intermitte nt claudication 43443851 I73.9 will start with US duplex Peripheral venous insufficiency 55947956 I87.2 will set up with both duplex and venous Skin ulcer 30848354 L98. 491 will set up with US arterial and US duplex Transplant ed liver present 271648125 Z94.4 doing really well [id number] Tony Toure [facility] [address] [facility], [place] [address] 05/16/2023 08:00:07 05/16/2023 16:05:24 Portal vein thrombosis 29248954 I81 will fu with endo Splenic infarction 07996 003 D73.5 fu with [facility] Atrial fibrillation 4943 6004 I48.0 stableback on eliquis Essential hypertension 58228345 I10 BP excellent today will need to fu with her cardiologi st Gastroesop hageal reflux disease 299082798 K21.9 will fu with omeprazole Hypercholesterolemia 136 48068 E78.2 recent check Hypothyroidism 48790764 E03.8 fu with endo Intermitte nt claudication 18750524 I73.9 stable Pulmonary hypertension 30621927 I27.0 stable [id number] Tony Toure [facility] [address] [facility] [address],[place] [facility] [address] 08/21/2023 15:35:21 08/21/2023 16:41:53 Trigger finger of right hand 5493010171 0918733 M65.311 will set up with ortho Tendinitis of left gluteal tendon 5232001299 20105 M76.02 told her to use a cushion or get a new chair Candidiasis of skin 4967 3006 B37.2 will have her use her nystatin on her left armpit [id number] Tony Toure [facility] [address] [facility] [address], [place] [address] 12/01/2023 14:15:39 12/01/2023 15:28:21 Atrial fibrillation 02655336 I48.0 stableback on eliquis Asthma 841434922 J45.40 needs alt to flovent Essential hypertension 48340942 I10 f/u with her cardiologi st Candidiasis of skin 9138 3006 B37.2 stablewill take over the ketoconazo le cream Lipoma of back 321307768 D17.1 will monitor [id number] [facility] [address] [facility],[place] [facility] [place] [address] 02/06/2024 10:59:49 02/06/2024 11:45:50 Depression screening 314296830 Z13.31 stable Acute urin sachin tract infection 391269434 N39.0 will start on amoxicilli n Lesion of liver 07134788 0 K72.10 stable Type 2 luciano betes mellitus 55653570 E11.9 consults with endo with A1c measuremen t Transplant ed liver present 418270436 Z94.4 doing really well Peripheral vascular disease 703203160 I73.9 stable Pulmonary hypertension 32750036 I27.0 stable Chronic ki dney disease stage 3 227085599 N18.31 stable Skin ulcer 30219871 L98. 491 stable [id number] Tony Toure [facility] [address] [facility] [address],[place] [facility] [place] [address] 03/12/2024 14:17:11 03/13/2024 09:24:06 Depression screening 257873314 Z13.31 stable Abdominal pain 54525213 R10.10 agreed to US abd and pelviswill r/o any other causes for the upper abdominal and pelvic discomfort s/p surgeryhas not had an imaging since November last year to recheck the area Acute urin sachin tract infection 200071670 N39.0 will set up with a recheck her urine to make sure resolution of the utiagreed to this [id number] Tony Toure [facility] [address] [facility],[place] [address] 06/26/2024 14:17:27 06/26/2024 14:58:48 Chronic kidney disease stage 3 104681398 N18.31 stable Hypothyroidism 52006177 E03.8 f/u with endo in October Type 2 luciano betes mellitus 14969997 E11.9 consults with endo in [id number] Tony Toure [facility] [address] [facility],[place] [address] 10/04/2024 14:12:33 10/04/2024 15:06:54 Acute urinary tract infection 543661755 N10 switch out to an alternativ e abx Transplant ed liver present 562471717 Z94.4 elevated creatinine , monitored by her transplant team Palpitations 07180414 R0 0.2 cardio ordered a 2 day holter monitor Atrial fibrillation 4943 6004 I48.0 waiting a culture [id number] Tony Toure [facility] [address] [facility],[place] [address] 01/20/2025 14:11:47 01/20/2025 14:51:12 Depression screening 129747157 Z13.31 stable Nausea 771804466 R11.0 will set up with refil of medication Abdominal pain 43790142 R10.10 agreed to US abd and pelviswill r/o any other causes for the upper abdominal and pelvic discomfort s/p surgeryhas not had an imaging since November last year to recheck the area Atrial fibrillation 4943 6004 I48.0 stable Typical at rial flutter 177861604 I48.3 3901408 [id number] Tony Toure [facility] [address] [facility],[place] [address] 03/21/2025 14:00:55 03/21/2025 15:30:24 Acute back pain with sciatica 329958764 M54.42 44186575 will set up with lumbar spine imaging [id number] Tony Toure [facility] [address] [facility],[place] [address] 04/21/2025 14:15:24 04/22/2025 08:10:02 Depression screening 687993351 Z13.31 stable Acute urin sachin tract infection 090954632 N39.0 483186 recommende d fu urine test, hx of the sepsis and recurrent UTIs Essential hypertension 24052946 I10 f/u with her cardiologi st Type 2 luciano betes mellitus 97862034 E11.9 consults with endo in [id number] Tony Toure [facility] [address] [facility],[place] [address] 04/29/2025 11:48:43 04/29/2025 13:31:25 Bilious vomiting 00820758 R11.14 30826987 History of liver recipient 167469296 Z94.4 446883 elevated creatinine , monitored by her transplant team Lesion of liver 42270758 0 K72.10 stable Abdominal pain 94290111 R10.10 agreed to US abd and pelviswill r/o any other causes for the upper abdominal and pelvic discomfort s/p surgeryhas not had an imaging since November last year to recheck the area [id number] Tony Toure [facility] [address] [facility],[place] [address] 07/14/2025 14:08:52 07/14/2025 14:47:13 Cellulitis of toe of right foot 6219064468 L03.031 247510 will set up with silver sulfadiazi ne Acute ankle pain 0715710 011 9105 M25.572 75860498 will set up with XR ankle L side Health Concerns Section Related Observation LastModified by Organization Detai ls LastModified Time None Recorded Concern Status LastModified by Organization Details LastModified Time None Recorded Advance Directives Directive None Recorded Payers Insurance Date Sequence Insurance Name Policy Number Policy Mayers Covered Member ID Mayers Member ID Guarantor Name 07/08/2025 2 [place] [id number] Elysia Valle [id number] Elysia Valle 07/11/2025 1 [place] Elysia Valle [id number] Elysia Valle 07/08/2025 2 [facility] [employer] - DIRECT CONNECTORCARE TYPE I (HMO) [id number] Elysia Valle [id number] Elysia Valle 08/31/2021 2 UNSPECIFIED REMIT PAYOR Elysia Valle 07/11/2025 2 [place] [id number] Elysia Valle [id number] Elysia Valle Notes Date Note Type Note Provider Name and Address Organization Details Recorded Time 5 text/html f/u med check the patient [...] further investigation and treatment for mental health. TIRNO ZARAGOZA [address] [facility], [place], [address], [facility] 01/20/2025 14:46:06 5 text/html ROS as noted in the HPI c/o left knee and back pain the [...] enough to warrant oxycodone) TRINO ZARAGOZA [address] [place], [address], [facility] 03/21/2025 14:29:59 5 text/html ROS as noted in the [facility] f/u medication check 3 mos the patient was recently in the ER due to AMS and sepsis, the patient was found to have inflammation and fluid around her liverhas f/u with her surgeons office in [place] to sample the fluid, will be also possibly getting an angioplasty of her liver vessels vs stentingwill determine after she is seen by them the patient still has some diarrhea, mild low grade fever, otherwise normal, [place] already aware and just having her monitor her symptoms recommended repeat urine given hx of uti and sepsis will fu with pt in 3 mos or sooner TRINO ZARAGOZA [address] [place], [address], [facility] 04/21/2025 14:50:58 5 text/html ROS as noted in the [facility] hospital f/u the patient has been in the hospital at [facility] due to ongoing complications of her liver transplant, has the mass that is being tested by her transplant team, originally supposed to be done about a month ago, but there were having issues with scheduling, has it coming upthey are not sure what is causing her symptoms and elevated white blood cell countthey did refer her for an appt with ematology as well and she is getting BW done every two weeks to monitor her levels the patient is okay today in officetired but baseline [id number], good judgementclear and concise denies any AMS recently will fu with patient after her biopsyher routine 3 mos is already scheduled TRINO ZARAGOZA [address] [place], [address], [facility] 04/29/2025 12:38:28 5 text/html ROS as noted in the HPI 3 mos f/u cellulitis of the R foot (R second toe) the patient lost her toenailthe patient usually sees a podiatry but [facility]'t been [facility], has appt this weekrecommended topical anti microbial cream for her toe then fu with podiatry the patient reports that she gets pain in the ant waggoner and in the medial ankle joint, painful with palpation, probable arthritis the pt was cleared by specialty for any possible cancers, also her endo stopped the mounjaro and have her just using low dose trulicitythe pt is feeling much better, GI symptoms cleared up very well will set up with XRotherwise doing well, still gets screened for her liver TRINO ZARAGOZA [address] [facility], [place], [address], [facility] 07/14/2025 14:44:16 OBGyn Episode No OBEpisode recorded.
--- OUTSIDE RECORDS SUMMARY | 2025-07-18 15:43 | XMS_ITS | Encounter Summary ---
Author Organization [facility] Address [address] [facility] [address] [place] [phone] Phone Care Team Providers Care Psychologist Engineering Name Role Phone Patti Bell Primary Care Provider Reason for Visit * Reason Comments Medication Refill Encounter Details Date Type Department Care Team (Late st Contact Info) Description 07/15/2025 Refill [facility] [address] [place] [address] Simran Contreras PA-C [address] [place] [address] [email or web address] Medication Refill Social History Tobacco Use Types Packs/Day Years Used Date Smoking Tobacco: Never Passive Smoke Exposure: Never Smokeless Tobacco: Never Alcohol Use Standard Drinks/Week Comments Never 0 (1 standard drink = 0.6 oz pur e alcohol) Education Answer Date Recorded Are you interested in more education? Not on aline e 01/20/2023 Are you concerned about learning? Not on file 01/20/2023 No 01/20/2023 No 01/20/2023 Digital Access Answer Date Recorded No 02/20/2023 No 02/20/2023 Reliable internet access at home? Not on file 02/20/2023 Device with a working camera? Not on file Comments Unknown Sex and Gender Information Value Date Recorded Sex Assigned at Not on file Legal Sex Female 11:38 AM EDT Gender Identity Not on file Sexual Orientation Not on file documented as of this encounter Progress Notes * Aide Hogue [place] - 07/15/2025 2:12 PM EDT Rx Care Gap Status - Instructions for Clinical Staff (prescriber discretion applies): > Mismatch review guide > At least one request does not meet full criteria. Specifics below. > Labs due: Please remind patient. > Orders needed: Click OPA and Accept to open SmartSet. Labs due for pended Rx Requests: Lipid panel - Needs order * Other labs due based on Medication List: A1c Urine Microalbumin Visit Info Last visit: 04/29/2025 Simran Contreras PA-C - Endocrinology [facility] > Requested f/u: Return in about 3 months (around 07/30/2025). Upcoming visit: 07/28/2025 Simran Contreras PA-C - Endocrinology [facility]WN ACTIONS TAKEN BY Aide Hogue [place] - Labs needed - Teed up orders and/or reminded pt. Cholesterol Medication Rx Protocol (on Diabetes Registry) - lovastatin Criteria not met; renew for up to 3 months. (unless patient is on high intensity statin, in which case LDL level may not be needed at provider discretion) Visit in the past 14 months: Yes Clinical criteria: - Lipid panel within past year: No (LDL 76 on 10/27/2023) Lab Results Component Value Date LDL 76 10/27/2023 HDL 45 10/27/2023 CARDIAC RISK RATIO 3.3 10/27/2023 TRIGLYCERIDES 129 10/27/2023 CHOLESTEROL 147 10/27/2023 Health Maintenance Labs Due / Due Soon Topic Date Due HEMOGLOBIN A1C 02/16/2025 documented in this encounter Plan of Treatment Upcoming Encounters Date Type Department Care Team (Late st Contact Info) Description 07/28/2025 12:30 PM EST Office Visit [facility] [place] [address] [facility] [place] [phone] Simran Contreras PA-C [address] [place] [address] 10/27/2025 12:30 PM EST Office Visit [facility] [place] [address] [place] [phone] Simran Contreras PA-C [address] [place] [address] 01/26/2026 2:00 PM EDT Office Visit [facility] [place] [address] [place] [address] Pinky Miller MD [address] [address] [email or web address] documented as of this encounter Visit Diagnoses Diagnosis Type 2 diabetes mellitus with peripheral neuropathy documented in this encounter Care Teams Psychologist Engineering Relationship Specialty Start Date End Date Patti Bell PA [address] [facility] [place] [address] PCP - General 01/11/21 documented as of this encounter Additional Source Comments The information contained in this document represents components of the legal health record. It is not the complete legal health record.[facility]
--- OUTSIDE RECORDS SUMMARY | 2025-07-18 15:44 | XMS_ITS | Patient Health Record ---
Author Organization [facility] Address [address] [place] [address] Care Team Providers Care Fleet Maintenance Manager Name Role Phone Tony Toure Primary Care Provider Junior Calvillo Unavailable [phone] Sakina May Unavailable Unavailable Reason For Referral No Information Plan Of Treatment No Information Insurance Providers Payer Name Payer Address Payer Phone Subscriber Number Group Number Insured Name Patient Relationship to Insured Coverage Start Date Coverage End Date [facility] [address] [place] [address] [id number] MARYANN GATES Self - patient is the insured
--- OUTSIDE RECORDS SUMMARY | 2025-07-18 15:44 | XMS_ITS | Patient Health Record ---
[facility] Address [address] [place] [address] Care Team Providers Care Processor Solid Propellant Name Role Phone Tony Toure MD Primary Care Provider Munira Heller Unavailable [phone] Allergies Allergen (clinical drug ingredient) Drug/Non Drug [...] Duration) Notes Start Date End Date Status Triamterene-HCTZ Act stephan Xanax 0.5 MG 1 tablet Orally Twice a day Active Flovent Diskus 250 MCG/ACT INHALE 1 PUFF TWICE A DAY BY FOR 90 DAYS. Inhalation; Duration: 90 Not-Taking Furosemide 40 MG TAKE 1 TABLET BY MOUTH EVERY DAY Orally Not-Taking Ferrous Sulfate 325 (65 Fe) MG TAKE 1 TABLET BY MOUTH TWICE A DAY Oral; Duration: 90 Active Omeprazole 40 MG TAKE 1 CAPSULE BY MOUTH TWICE A DAY Oral; Duration: 90 Not-Taking Arnuity Ellipta 200 MCG/ACT 1 puff Inhalation Once a day Active Bactrim Not-Taking Digoxin 62.5 MCG 1 tablet Orally Once a day Active Magnesium Oxide 400 (240 Mg) MG TAKE 2 TABLETS BY MOUTH 3 TIMES A DAY Oral; Duration: 90 Active Lactulose 10 GM/15ML TAKE 15 ML BY MOUTH TWICE A DAY FOR 30 DAYS. Oral; Duration: 30 Not-Taking HumaLOG KwikPen 100 UNIT/ML INJECT UP TO 30 UNITS DIRECTED THREE TIMES DAILY AFTER MEALS Subcutaneous; Duration: 90 Active Xifaxan 550 MG TAKE 1 TABLET BY MOUTH EVERY 12 HOURS Oral; Duration: 30 Not-Taking Eliquis 5 MG TAKE 1 TABLET BY MOUTH TWICE A DAY Oral; Duration: 90 Active Spironolactone 100 MG TAKE 1 TABLET BY MOUTH EVERY DAY Oral; Duration: 90 Not-Taking Ondansetron HCl 4 MG TAKE 1 TABLET BY MOUTH EVERY 6 HOURS NEEDED FOR NAUSEA OR VOMITING Oral; Duration: 30 PRN Active D3 Super Strength 50 MCG (2000 UT) TAKE 2 CAPSULES BY MOUTH EVERY DAY Oral; Duration: 90 Not-Taking Docusate Sodium 100 MG 1 capsule as need ed Orally Once a day; Duration: 30 day(s) Not-Taking Nadolol 20 MG TAKE 1 TABLET BY MOUTH EVERY DAY Oral; Duration: 90 Not-Taking Synthroid 137 MCG TAKE 1 TABLET BY MOUTH EVERY DAY Oral; Duration: 90 Active Trulicity 1.5 MG/0.5ML INJECT 1.5 MG (1 PEN) INTO THE SKIN ONCE A WEEK Subcutaneous; Duration: 84 Not-Taking Lovastatin 40 MG TAKE 1 TABLET BY MOUTH AT BEDTIME EVERY NIGHT Oral; Duration: 90 Active metFORMIN HCl 500 MG TAKE 1 TABLET BY MOUTH EVERY DAY Oral; Duration: 90 Not-Taking Restasis 0.05 % INSTILL 1 [...] Twice a day; Duration: 30 day(s) Active Nystatin 030448 U/ML as directed Mouth/Throat Not-Taking Torsemide 20 MG 2 tablets Orally Twice daily Active Flecainide Acetate 100 MG TAKE 1 TABLET BY MOUTH TWICE A DAY Oral; Duration: 90 Not-Taking Multivitamin Active Clotrimazole-Betametha sone 1-0.05 % APPLY TO AFFECTED AREA TWICE A DAY IN THE MORNING AND IN THE EVENING FOR 2 WEEKS External; Duration: 7 PRN Not-Taking Ergocalciferol 58331 IU as directed Orally Active Vitamin D3 Not-Takin g Metoprolol Succinate 100 MG 1 capsule Orally twice a day Active Extra Depth Orthopedic Shoes (1 Pair) with Customized Heat Molded Multidensity Innersoles (3 Pair) as directed Dx: NIDDM/Polyneuropathy (E11.42), Hammertoe Foot Deformity (M20.41,M20.42), Preulcerative Skin Lesion(s) (L85.1 08/31/2022 Not-Taking LORazepam 0.5 MG 1 tablet at bedtime as needed Orally Once a day PRN Not-Taking Sodium Chloride 1 GM as directed Orally Not-Taking [employer] Chewable C with Layne Hips 500 MG TAKE 1 TABLET BY MOUTH TWICE A DAY Oral; Duration: 30 Not-Taking Pantoprazole Sodium Active Acyclovir 800 MG 1 tablet Orally Twice a day; Duration: 10 day(s) Not-Taking protonix 1 tab Oral; Duration: 14 days Not-Taking Senna Not-Taking Sulfamethoxazole-Trime thoprim 800-160 MG TAKE 1 TABLET BY MOUTH EVERY 12 HOURS FOR 5 DAYS Oral; Duration: 5 Not-Taking Immunizations Vaccine Route Administration Date Status Comme nts Influenza Unknown 06/27/2022 Administered Influenza Unknown 07/26/2023 Administered Influenza Unknown 07/26/2024 Administered Social History Tobacco Use: Social History [...] ast year? No Points 0 Interpretation Negative Problems Problem Type SNOMED Code ICD Code Onset Dates Problem Status W/U Status Risk Notes Problem Polyneuropathy due to type 2 diabetes mellitus (149447360) Type 2 diabetes mellitus with polyneuropathy (E11.42) Active confirmed Vital Signs Blood pressure diastolic 75 mm Hg 07/15/2025 Height 5ft7in in 07/15/2025 Blood pressure systolic 112 mm Hg 07/15/2025 Weight 217 lbs 07/15/2025 BMI 33.98 kg/m2 07/15/2025 Encounters Encounter Location Date Provider Diagnosis [address] [address] 08/20/2024 Munira Perica Tinea unguium B35.1 and Type 2 diabetes mellitus with polyneuropathy E11.[address] [address] 11/08/2024 Munira Perica Tinea unguium B35.1 and Type 2 diabetes mellitus with polyneuropathy E11.[address] [address] 01/29/2025 Munira Perica Tinea unguium B35.1 and Type 2 diabetes mellitus with polyneuropathy E11.[address] [address] 07/15/2025 Munira Lopeza Tinea unguium B35.1 and Type 2 diabetes mellitus with polyneuropathy E11.[address] [address] 10/30/2024 Munira Crews [address] [address] 04/22/2025 Munira Crews Assessments Encounter Date Diagnosis (ICD Code) Assessment Notes Treatment Notes Treatment Clinical Notes Section Notes 08/20/2024 Tinea unguium (ICD-10 - B35.1) 11/08/2024 Tinea unguium (ICD-10 - B35.1) 01/29/2025 Tinea unguium (ICD-10 - B35.1) 07/15/2025 Tinea unguium (ICD-10 - B35.1) 07/15/2025 Type 2 diabetes mellitus with polyneuropathy (ICD-10 - E11.42) 01/29/2025 Type 2 diabetes mellitus with polyneuropathy (ICD-10 - E11.42) 11/08/2024 Type 2 diabetes mellitus with polyneuropathy (ICD-10 - E11.42) 08/20/2024 Type 2 diabetes mellitus with polyneuropathy (ICD-10 - E11.42) Plan Of Treatment Next Appt Details Provider Name:Munira moraes, 09/23/2025 02:45:00 PM, [address] [facility], [place], [address], Insurance Providers Payer Name Payer Address Payer Phone Subscriber Number Group Number Insured Name Patient Relationship to Insured Coverage Start Date Coverage End Date Medicare [employer] [address] [place] [address] [id number] Elysia Valle Self - patient is the insured [employer] [address] [place] [address] [id number] Elysia Valle Self - patient is the insured Medical (General) History Medical History History ICD Code Anemia asthma Back,Hip,and Knee pain Diabetic Heart disease High blood pressure Liver disease thyroid Measles Mumps Chicken pox Transfusions Surgical History Surgery Date(Month/Year) liver transplant 07/31/2022 hysterectomy 02/1999 Surgery for infected incision area biopsy on Liver 07/18 Tooth removal 08/05/24 Hospitalization History Reason Date(Month/Year) Liver 05/19 [facility] to [facility] - 3 night stay 09/2022
--- OUTSIDE RECORDS SUMMARY | 2025-07-18 15:44 | XMS_ITS | Encounter Summary ---
Author Organization [facility], Address [address] [place] [address] Phone Care Team Providers Care Equity Holder Name Role Phone Patti Bell PA-C Primary Care Provider [phone] Encounter Details Date Type Department Care Team (Late st Contact Info) Description 07/28/2022 Documentation Only [facility], - [address] [phone] Patti Bell PA-C [address] [place] [phone] Social History Tobacco Use Types Packs/Day Years [...] on filedocumented in this encounter Care Teams Equity Holder Relationship Specialty Start Date End Date Patti Bell PA-C [address] [place] [phone] PCP - General Physician Ribbon Hand 03/12/20 documented as of this encounter
--- OUTSIDE RECORDS SUMMARY | 2025-07-18 15:44 | XMS_ITS | Clinical Summary ---
Author Organization [facility], Address [address] [place] [phone] Phone Care Team Providers Care Law Enforcement Officer Name Role Phone Patti Bell PA-C Primary Care Provider Allergies Active Allergy Reactions Criticality Noted Date [...] by 4 units with meals. Nona in [place] had advised restarting low dose trulicity. She [...] Plan: Following w/ renal. BP reasonable. Immunizations Immunization Administration Dates Next Due Hep B, Unspecified [...] Comments Breast Cancer Screening 1959 Pneumococcal Vaccine: 50+ Years (1 of 2 - PCV) 1978 Colorectal Cancer Screening: Annual FOBT 2008 Colorectal Cancer Screening: Colonoscopy 2008 Colorectal Cancer Screening: Sigmoidoscopy 2008 Diabetes: Hemoglobin A1C 03/18/2020 Diabetes: Ophthalmology Exam 03/18/2020 Diabetes: Pedal Pulse Checked 03/18/2020 Diabetes: Sensory Foot Exam 03/18/2020 Diabetes: Visual Foot Exam 03/18/2020 Influenza Vaccine (#1) 2025 , 06/21/2019, 06/15/2018 Hepatitis B Vaccine Aged Out 07/02/2021, 07/02/2021, 06/15/2018 No longer eligible based on patient's age to complete this topic Insurance [facility] Medicare Care Teams Law Enforcement Officer Relationship Specialty Start Date End Date Patti Bell PA-C [address] [place] [address] [place] [phone] PCP - General Physician Turkey Pinner 03/12/20
--- OUTSIDE RECORDS SUMMARY | 2025-07-18 15:44 | XMS_ITS | Continuity of Care Document ---
Author Organization [facility], [facility] Address [address] [place] [address] [place] [address] Assessment No assessment recorded. Plan of Treatment Reminders Order Date Submit Date Provider Last Modified By Organization Details Last Modified Time Details Appointments FOLLOW UP 15 2025 02:15P TRINO HOPKINS Not available Not available Not available Lab None recorded. Referral None recorded. Procedures None recorded. Surgeries None recorded. Imaging XR, ankle, 3 or more view [address] (Imaging), [address] [place] [address], [id number], 07/14/2025 14:47:14 Medication Orders silver sulfadiaz ine 1 % topical cream 2024 025 [facility] #[id number], [address] [place], [address], 07/14/2025 14:36:49 Patient TargetsNo targets recorded. Patient InstructionsNo instructions recorded. Reason for Referral None Reported. Problems Name Problem SNOMED Code Status Onset Date Resolution Date Notes Provider Name and Address Organization Details Recorded Time Type 2 diabetes mellitus 67407720 Active 2017 Not Available [facility] 17:56:09 Hypothyr oidism 38126939 Active 2017 Not Available [facility] 17:56:09 Hypercho lesterol emia 42102876 Active 2017 Not Available [facility] 17:56:09 Acid reflux 008845769 Active 2017 Not Available [facility] 2 17:56:09 [facility] hyperten eric 46941007 Active 2017 Not Available [facility] 2 17:56:09 Pulmonar y hyperten eric 82781310 Active 2017 Not Available [facility] 2 17:56:09 Sarcoido sis 11967506 Active 2017 Dr. Kiera Reed Not Available [facility] 2 17:56:09 Atrial fibrilla tion 37366227 Active 2017 Not Available [facility] 2 17:56:09 Esophage al varices 14328297 Active 2017 Not Available [facility] 2 17:56:09 Adrenal adenoma 448435463 Active 2017 Not Available [facility] 2 17:56:09 Steatoti c liver disease 199985913 Active 2017 Not Available [facility] 2 17:56:09 Splenic infarcti on 09818009 Active 2021 Not Available [facility] 2 17:56:09 Portal vein thrombos is 23004116 Active 2021 Not Available [facility] 2 17:56:09 Pressure ulcer Active 2021 Not Available [facility] 2 17:56:09 Edema of lower extremit y 134001530 Active 2021 Not Available [facility] 2 17:56:09 Gastroes ophageal reflux disease 028878762 Active 2021 Not Available [facility] 2 17:56:09 Chronic kidney disease stage 3 500211442 Active 2021 Not Available [facility] 2 17:56:09 Vasculit is of the skin 58106548 Active 2021 Not Available [facility] 2 17:56:09 Transpla nted liver present 574434627 Active 2022 TRINO ZARAGOZA [address] [place], [address], [facility] 3 14:21:59 Intermit tent claudica tion 22212751 Active 2022 TRINO ZARAGOZA [address] [place], [address], [facility] 3 16:01:13 Peripher al venous insuffic iency 66939357 Active 2022 TRINO ZARAGOZA [address] [place], [address], [facility] 3 16:01:43 Skin ulcer 29285532 Active 2022 TRINO ZARAGOZA [address] [place] [address], [address], [facility] 3 16:04:37 Transpla ntation of liver Active 2022 TRINO ZARAGOZA [address] [place] [address], [address], [facility] 3 16:07:06 Insomnia 558943208 Active 2022 TRINO ZARAGOZA [address] [place] [address], [address], [facility] 3 14:53:51 Trigger finger of right hand 86730118463 914253 Active 2022 TRINO ZARAGOZA [address] [place] [address], [address], [facility] 3 16:07:03 Tendinit is of left gluteal tendon 35621346646 9108 Active 2022 TRINO ZARAGOZA [address] [place] [address], [address], [facility] 3 16:10:56 Candidia sis of skin 95149506 Active 2022 TRINO ZARAGOZA [address] [place] [address], [address], [facility] 3 16:21:15 Asthma 220093175 Active 2023 TRINO ZARAGOZA [address] [place], [address], [facility] 4 14:52:04 Lipoma of back 728572497 Active 2023 TRINO ZARAGOZA [address] [place], [address], [facility] 4 15:09:55 Peripher al vascular disease 042675638 Active 2023 TRINO ZARAGOZA [address] [place], [address], [facility] 4 11:21:48 Acute urinary tract infectio n 681393240 Active 2023 TRINO ZARAGOZA [address] [place] [address], [address], [facility] 5 14:42:33 Lesion of liver 754845659 Active 2023 TRINO ZARAGOZA [address] [place] [address], [address], [facility] 4 11:26:53 Abdomina l pain 58490399 Active 2023 TRINO ZARAGOZA [address] [place] [address], [address], [facility] 4 14:39:40 Palpitat ions 74061391 Active 2024 TRINO ZARAGOZA [address] [place] [address], [address], [facility] 5 14:42:29 Nausea 574072654 Active 2024 TRINO ZARAGOZA [address] [place], [place], , [facility] 5 14:38:52 Typical atrial flutter 511781441 Active 2024 TRINO ZARAGOZA [address] [place], [address], [facility] 5 14:45:06 Acute back pain with sciatica 028536289 Active 2024 TRINO ZARAGOZA [address] [place] [address], [address], [facility] 14:24:30 Bilious vomiting 85223268 Active 2024 TRINO ZARAGOZA [address] [place] [address], [address], [facility] 12:13:08 Cellulit is of toe of right foot Active 2024 TRINO ZARAGOZA [address] [place] [address], [address], [facility] 14:27:19 Acute ankle pain 53036420359 105 Active 2024 TRINO ZARAGOZA [address] [place] [address], [address], [facility] 14:29:22 Notes:Some problems listed i n Documents: #[id number], #[id number] could not be added to this patient's chart. Please review these documents and add these problems to the patient's chart manually as needed. Problem Notes None recorded. Procedures Surgical History Date Name Laterality Status Provider Name and Address Organization Details Recorded Time 03/04/20 19 I&D completed Marina BASILIA Martino [address] [place] [address], [address], [facility] 03/04/2019 14:43:51 02/23/20 19 I&D completed Marina BASILIA Martino [address] [place] [address], [address], [facility] 02/22/2019 15:12:47 Partial Hysterectomy completed Neva Strong NP, S [address] [place] [address], [address], [facility] 06/22/2018 15:38:16 Imaging Results None recorded. Procedure Notes None recorded. Medical Equipment None Reported. Allergies Allergen ID Allergen Name Allergen Category Reaction Reaction Severity Criticality Documentation Date Start Date Code Code System Note Provider Name and Address Organization Details Recorded Time 481 lisinopri l medicatio n Not available Not available Not available 12/05/2017 78340 [facility] 11:41:04 482 Augmentin medicatio n Not available Not available Not available 12/05/2017 33574 2 RxNorm LAUREL SanchezCRIS [address] [place], [address], [facility] 9 16:14:00 486 tramadol medicatio n Not available Not available Not available 12/05/2017 63587 RxNorm Seble rodriguez [facility] 8 12:05:04 488 Reglan medicatio n Not available Not available Not available 12/05/2017 9230 [facility] 8 12:05:35 9411 Mounjaro medicatio n Not available Not available Not available 07/14/2025 90558 34 RxNorm [place] [address] [place], [address], [facility] 5 14:22:15 Medications Name Sig Start Date Stop [...] Updated DateTime 5 171.45 cm 31.6 kg/m2 42559.4 4 g 67 /min 9 % 9 % 140/72 mm[Hg] Bekah Hart [facility] 5 14:16:27 Social History Question Answer Notes LastModified by Organizat ion Details LastModified Time Tobacco Smoking Status Former Smoker Seble Montoyasixto rodriguez [facility] 01/22/2018 09:03:51 What Was The Date Of Your Most Recent Tobacco Screening? 07/14/2025 [email or web address] Information not available 07/14/2025 Sex: Unknown Functional [...] 100 mcg/0.5mL dose or 50 mcg/0.25mL dose completed Not Available [facility] 10/27/2023 13:24:45 COVID-19, mRNA, LNP-S, PF, 100 mcg/0.5mL dose or 50 mcg/0.25mL dose 1 completed Not Available [facility] 10/27/2023 13:24:45 Tdap 0 completed Not Available [facility] 10/27/2023 13:24:45 COVID-19, mRNA, LNP-S, PF, 30 mcg/0.3 mL dose 1 completed Not Available [facility] 10/27/2023 13:24:45 Hep B, unspecified formulation 1 completed Not Available [facility] 10/27/2023 13:24:45 Influenza, split virus, quadrivalent, preservative 1 completed Not Available [facility] 10/27/2023 13:24:45 Past Encounters Encounter ID Performer Location Encounter Start Date Encounter Closed Date Diagnosis/Indication Diagnosis SNOMED-CT Code Diagnosis ICD10 Code Diagnosis IMO Codes Diagnosis Note [id number] Tony Toure [facility] [address],[place] [address] 07/14/2025 14:08:52 07/14/2025 14:47:13 Cellulitis of toe of right foot 4611533936 L03.031 788220 will set up with silver sulfadiazi ne Acute ankle pain 9866431 011 9105 M25.572 [id number] will set up with XR ankle L side Health Concerns Section Related Observation LastModified by Organization Detai ls LastModified Time None Recorded Concern Status LastModified by Organization Details LastModified Time None Recorded Payers Encounter Date Sequence Insurance Name Policy Number Policy Mayers Covered Member ID Mayers Member ID Guarantor Name 07/14/2025 1 [place] [employer] Elysia Valle [id number] Elysia Valle 07/14/2025 2 [place] [id number] Elysia Valle [id number] Elysia Valle Notes Date Note Type Note Provider Name a nd Address Organization Details Recorded Time 5 text/html ROS as noted in the HPI 3 mos f/u cellulitis of the R foot (R second toe) the patient lost her toenailthe patient usually sees a podiatry but [facility], has appt this weekrecommended topical anti microbial [...] gets screened for her liver TRINO ZARAGOZA [address] [place] [address], [place], [address], [place] [facility] 07/14/2025 14:44:16 OBGyn Episode No OBEpisode recorded.
--- OUTSIDE RECORDS SUMMARY | 2025-07-18 15:44 | XMS_ITS | Clinical Summary ---
Author Organization [facility] Address [address] [facility] [address] [place] [phone] Phone Care Team Providers Care Soa Integration Developer Name Role Phone Patti Bell Primary Care Provider Allergies Active Allergy Reactions Criticality Noted Date Comments Amoxicillin-Pot Clavulanate 01/27/20 23 States she is not allergic Lisinopril 03/18/2020 Metoclopramide Swelling Medium 06/23/2017 Metoclopramide Hcl Unknown 06/29/2023 Rosuvastatin Swelling 02/08/2023 Tramadol Swelling Medium 06/23/2017 Medications MAGNESIUM OXIDE ORAL Take 1 tablet by mouth daily. Active cyclosporine (RESTASIS OPHT) Place 1-2 drops into each eye 2 (two) times a day. Active pantoprazole (PROTONIX) 40 MG tablet pantoprazole 40 mg tablet,delayed release Active metoprolol succinate (TOPROL-XL) 100 MG 24 hr tablet Take 100 mg by mouth 2 (two) times a day. Active ergocalciferol (DRISDOL) 50,000 unit capsule Take 50,000 Units by mouth once a week. Active apixaban (ELIQUIS) 5 mg tablet 2 (two) times a day. Active torsemide (DEMADEX) 20 MG tablet torsemide 20 mg tablet TAKE ONE TABLET QD Active ferrous sulfate 325 mg (65 mg mohegan iron) tablet Take 650 mg by mouth daily with breakfast. Active ondansetron (ZOFRAN-ODT) 4 MG disintegrating tablet Take 4 mg by mouth. Active nystatin cream nystatin 100,000 unit/gram topical cream APPLY TO AFFECTED AREA TWICE A DAY Active mycophenolate mofetil (CELLCEPT) 250 mg capsule 2 capsules 2 (two) times a day. Active acetaminophen (PAIN RELIEF ES, ACETAMINOPHEN,) 500 MG tablet 1 tablet as needed Orally every 6 hrs Active tacrolimus (PROGRAF) 0.5 MG capsule Take by mouth. 0.5 MG AM AND 1 MG PM Active triamterene-hydro CHLOROthiazide (DYAZIDE) 37.5-25 mg per capsule Take 1 capsule by mouth every other day. Active ketoconazole 2 % cream APPLY TOPICALLY TO THE AFFECTED AREA (BILATERALY GROIN FOLDS) ONCE A DAY FOR 14 DAYS. 023 Active ALPRAZolam (XANAX) 0.5 MG tablet Take 1 tablet by mouth daily as needed. 023 Active ARNUITY ELLIPTA 200 mcg/actuation DsDv INHALE 1 PUFF EVERY DAY DIRECTED 024 Active ONETOUCH VERIO Strp stripsIndications :Type 2 diabetes mellitus with peripheral neuropathy 1 each by Miscellaneous route 3 (three) times a day before meals. DX E11.42, on insulin 300 strip 3 024 Active insulin pen needles, disposable, (BD ULTRA-FINE ORIG PEN NEEDLE) 29 gauge x 1/2 NdleIndications:T ype 2 diabetes mellitus with peripheral neuropathy Inject 1 each as directed 4 (four) times a day before meals and nightly. 400 each 3 024 Active dulaglutide (TRULICITY) 0.75 mg/0.5 mL subcutaneous injectionIndicati ons:Type 2 diabetes mellitus with peripheral neuropathy Inject 0.5 mL (0.75 mg total) under the skin every 7 days. 2 mL 3 025 Active insulin glargine (LANTUS SOLOSTAR U-100 INSULIN) 100 unit/mL (3 mL) InPn injection penIndications:Ty pe 2 diabetes mellitus with peripheral neuropathy Inject 45 Units under the skin nightly at bedtime. 45 mL 4 025 Active insulin lispro (HUMALOG KWIKPEN INSULIN) 100 unit/mL injection penIndications:Ty pe 2 diabetes mellitus with peripheral neuropathy 4-10 units with food if you are eating carb, 4 with tip puncher carb meals, 10 units with higher carb meal. Plus scale if you are high as follows: Glucose < 150 - 0 units, 150-200 8 units 201-250 16 units 251-300 24 units 301-350 32 units 351-400 40 units > 400 48 units At bedtime take 1/2 scale if > 200. Up to 198 units daily 180 mL 1 025 Active SYNTHROID 137 mcg tabletIndications :Postablative hypothyroidism TAKE 1 TABLET BY MOUTH EVERY DAY IN THE MORNING 90 tablet 1 025 Active lovastatin (MEVACOR) 40 MG tabletIndications :Type 2 diabetes mellitus with peripheral neuropathy TAKE 1 TABLET BY MOUTH EVERYDAY AT BEDTIME 90 tablet 025 Active lovastatin (MEVACOR) 40 MG tabletIndications :Type 2 diabetes mellitus with peripheral neuropathy TAKE 1 TABLET BY MOUTH EVERYDAY AT BEDTIME 90 tablet 2 025 2024 Discontinued SYNTHROID 137 mcg tabletIndications :Postablative hypothyroidism TAKE 1 TABLET BY MOUTH EVERY DAY IN THE MORNING 90 tablet 1 025 2024 Discontinued Active Problems Problem Noted Date Diagnosed Date Peripheral venous insufficiency 02/07/2023 06/29/2023 prison current use of insulin 01/29/2023 Assessment & Plan (11/20/2024 11:38 AM EST): Will increase her sliding scale because current dosing is not improving her control especially during the day with meals Type 2 diabetes with nephropathy 01/29/2023 Assessment & Plan (07/15/2024 6:09 PM EDT): Renal function appears stable. Umalb/creat up to date, normal. BP well controlled. Assessment & Plan (12/26/2023 4:36 PM EDT): Renal function appears stable. BP well controlled. Recent umalb/creat normal. Assessment & Plan (06/29/2023 5:43 PM EDT): Renal function appears stable. BP well controlled. Assessment & Plan (01/29/2023 8:43 PM EDT): Following w/ renal. BP reasonable. Type 2 diabetes mellitus with peripheral neuropa thy 01/26/2023 01/26/2023 Assessment & Plan (04/29/2025 3:32 PM EDT): Control is poor based upon the patient's freestyle reina 3 sensor download. No frequent or severe hypoglycemia. She had a couple lows in the morning due to taking too much insulin at night before bed. She corrected with juice and then was fine. She has been in and out of the hospital for the last several months due to dehydration from nausea, vomiting, and diarrhea. While in the hospital no one had discussed stopping the trulicity. Will have her try stopping the trulicity for the next 2- 3 weeks to see if the symptoms stop.. If the symptoms stop, will discuss changing her insulin to a concentrated insulin to help lessen the volume of insulin she is injecting to see if this helps with effectiveness. If symptoms don't stop will resume with the trulicity and continue to work with other providers to work up her symptoms. Gave her a written chart of her lispro dosing. Continue to work on eating healthier and trying to be active. To call or message with any issues managing her glucose levels. Up to date with [facility]. Needs to schedule with podiatry. Discussed checking with the [facility] nurse to see if they visit for cutting nails while she awaits her podiatry appointment. Labs ordered Assessment & Plan (11/20/2024 11:43 AM EST): Control is poor based upon the patient's freestyle reina 2 sensor download. No frequent or severe hypoglycemia. The one episode of hypoglycemia she had was due to laying on the sensor. Her glucose levels are running continuous high throughout the day. Will increase her sliding scale at meals, will maintain her HS dose of lispro. She did not start the mounjaro after her last visit. She had concerns about side effects. Reviewed how mounjaro works and the potential side effects. She is going to order this from the pharmacy and start taking it. Discussed when she starts the mounjaro she may need to lower her insulin to prevent hypoglycemia. She will keep an eye on this. Continue to work on eating healthier and trying to be active. To call or message with any issues managing her glucose levels. Up to date with [facility]. Labs ordered Assessment & Plan (07/15/2024 6:08 PM EDT): Control poor. No frequent or severe hypoglycemia. She is spiking up significantly after meals. She is not taking mealtime insulin consistently. Again reviewed options of adding a GLP1 agonist, which she has been reluctant to consider, in part related to cost. Will send over rx for fan to see if covered/affordable. To start @ 2.5 mg weekly & then increase to 5 mg weekly as tolerated in 1 month. To continue to take insulin @ mealtimes for now. Continue to work on eating healthy & keeping active. To call or send in BG with problems with glycemic control. Foot & nail care good. Assessment & Plan (05/13/2024 3:03 PM EDT): Control is poor based upon the patient's freestyle reina 3 sensor download. No frequent or severe hypoglycemia. She has not been actively recently, and this is likely causing her glucose levels to run higher. She is going to work on being more active and improving her diet to improve her glucose control. Continue to work on eating healthy and trying to be active. To call or message with any issues managing her glucose levels. Up to date with [facility]. Sees podiatry. Labs ordered today Assessment & Plan (12/26/2023 4:39 PM EDT): Control poor. No frequent or severe hypoglycemia. She is spiking up significantly after meals. She is somewhat unclear @ how she is dosing her mealtime insulin, we had previously advised she take 4-10 units for food plus ISS if high & to take less of insulin via scale @ night if high to avoid excessive drops overnight. Advised her to increase the insulin for food by 6 units & scale by 2 units at each level. Continue to work on eating healthy & keeping active. To call or send in BG with problems with glycemic control. Follows w/ podiatry. Assessment & Plan (10/27/2023 1:22 PM EST): Control is poor based upon the patient's freestyle reina 3 sensor download. No frequent or severe hypoglycemia. Her glucose levels have been running higher over the last few weeks. Some of this is likely due to the cortisone injection. Will have her titrate her lantus dose up by 2 units every 3 days if her fasting glucose level is above 140. Can titrate up to 44 units, if needs to go beyond 44 units to call or message the office to let us know and can discuss further adjustments. Continue to work on eating healthy and trying to be active. To call or message with any issues managing her glucose levels. Up to date with [facility]. Sees podiatry. Labs ordered today Assessment & Plan (06/29/2023 5:42 PM EDT): Control poor. No frequent or severe hypoglycemia. Tending to go down overnight, is often correcting highs at hs & then going very high PC meals. Her current scale is only giving insulin w/ high, based on BG, not taking into account food intake. Reviewed options to improve control. She cannot afford trulicity & not willing to try a different GLP1 agonist (may not be able to afford those either). Reviewed normal insulin physiology, role of basal & bolus insulin, role of adjusting based on food intake & glucose. Would benefit from seeing RD at some point for help with this. Advised to take 4-10 units for food plus ISS if high & to take less of insulin via scale @ night if high to avoid excessive drops overnight. Strongly advised her to take insulin w/ all meals/snacks with significant carbohydrate. Continue to work on eating healthy & keeping active. To call or send in BG with problems with glycemic control. Foot & nail care good. Assessment & Plan (05/01/2023 8:31 AM EDT): Control is suboptimal based upon the patient's freestyle renia 14 day sensor. No frequent or severe hypoglycemia. She had a couple lows due to over correcting highs. Her glucose levels are running highest after meals due to her forgetting to take her insulin. Discussed ways to help remember to take her insulin before eating, if not 15 minutes before, right before eating to help prevent the post prandial spikes. Will maintain her insulin dosing. Continue to work on eating healthy and being active. To call or message with any issues managing her glucose levels. Up to date with o[facility]o. Labs ordered today Assessment & Plan (01/29/2023 8:42 PM EDT): Control poor. Tending to drop overnight, ? Due to taking prandial insulin @ hs when high vs dose of basal insulin too high. Advised caution w/ taking humalog @ night & to cut back to 10-15 units when BG very high. Going very high after meals, advised to increase dose of humalog by 4 units with meals. Endo in [place] had advised restarting low dose trulicity. She [...] hasn't heard from us within 1-2 weeks. Hypothyroidism following radioiodine therapy 12/202201/26/2023 Assessment & Plan (07/15/2024 6:09 PM EDT): Euthyroid on recent labs. Assessment & Plan (12/26/2023 4:37 PM EDT): Euthyroid on recent labs. Assessment & Plan (06/29/2023 5:39 PM EDT): Euthyroid. Will repeat labs prior to follow up, sooner prn symptoms of thyroid dysfunction or > 10-15# weight change, or as otherwise clinically indicated. Assessment & Plan (01/29/2023 8:42 PM EDT): Recent TSH high. Dose was increased. Will repeat 6-8 weks after rx adjustment. Presence of transplanted liver 10/28/2022 0 01/26/2023 Stage 3 chronic kidney disease 04/01/2022 0 01/26/2023 Splenic infarction 10/06/2021 01/26/2023 Portal vein thrombosis 12/14/2018 Overview (06/29/2023): Last Assessment & Plan: Noted on abdominal US with doppler 12/14/18. Acuity is unclear based on the report. On exam, pt has no ascites, trace lower extremity edema. Platelet count 141, INR 1.58. Concerning that PVT occurred while on apixaban therapy - suggests underlying structural issue such as HCC. According to the US report, infiltrating tumor in R lobe cannot be ruled out. Patient declines MRI liver mass protocol due to claustrophobia despite emphasis that this is the most sensitive/specific modality. She is in agreement w/CT liver mass protocol. - CT liver mass protocol to evaluate for underlying cause of PVT (e.g. malignancy) - Continue apixaban - Reassess progression on follow up imaging Hypomagnesemia 07/17/2018 01/26/2023 Hepatic cirrhosis 06/20/2018 01/26/2023 Overview (01/29/2023): Added automatically from request for surgery [id number] Last Assessment & Plan: Etiology: CHIN cirrhosis MELD: 15 HCC screening: due for screening with CT scan at [facility] next week. We will continue to have screening every 6 months. Varices: Complicated by variceal bleeding. She is due for a surveillance EGD this month. I have ordered this. Ascites: Worsening in the setting of having her diuretic dose decreased. This was done because of acute kidney injury. Was unclear why she had acute kidney injury. She has resumed her normal dose of Lasix and spironolactone and is already starting to diurese. She will have chemistries checked next week prior to her CAT scan and already has a plan for prehydration. I recommended that she remain on a high dose of Lasix 20 mg daily Spironolactone 100 mg daily and have close follow-up with Dr. Macdonald and her primary care. HE: pt with grade 0-1 HE today. On lactulose. Vaccinations: Covid x3 given today. Hepatitis B booster given today. She has received her flu vaccine. Transplant: Presently listed at [facility]. Last Assessment & Plan: CHIN cirrhosis complicated by variceal bleed and LE edema. Etiology: CHIN MELD: 15, CP B HCC screening: UTD with CT scan at [facility] 03/2019. Varices: likely variceal bleed at OSH, now s/p banding for 2ndary prevention. Oreded repeat EGD for September. She will hold eloquist 3 days prior to EGD. On nadolol with HR 63, continue Ascites: no apparent ascites. Continue spironolactone 50mg HE: no History Vaccinations: Received flu shot today. HAV - Ab negative in 2017. Need to vaccinate or re-check Ab status. Transplant: Listed at [facility] Added automatically from request for surgery [id number] GERD (gastroesophageal reflux disease) 8 01/26/2023 Essential hypertension 12/05/2017 3 Atrial fibrillation 12/05/2017 01/26/2023 Adrenal adenoma 12/05/2017 01/26/2023 Overview (01/29/2023): Last Assessment & Plan: Bilateral Adrenal adenoma. Given size, I reviewed the recommendations for additional work up including a CT adrenal mass protocol and plasma free metanephrines, aldosterone and plasma renin activity. Dexamethasone suppression test also indicated though it is challenging to order this given the distance she travels to the appointment. I will start with the other tests for now. Assessment & Plan (01/29/2023 8:38 PM EDT): Uncertain if this was known/addressed previously, or found in evaluation for transplant, await records. Pulmonary hypertension 12/05/2017 3 Secondary esophageal varices with bleeding 12/0501/26/2023 Overview (01/29/2023): Added automatically from request for surgery [id number] Sarcoidosis 12/05/2017 01/26/2023 Steatosis of liver 12/05/2017 01/26/2023 Hypothyroidism 12/05/2017 04/28/2023 Assessment & Plan (11/20/2024 11:38 AM EST): Will check levels to determine if medication adjustments are needed Assessment & Plan (05/13/2024 2:59 PM EDT): Will check levels to determine if medication adjustments are needed Assessment & Plan (05/01/2023 8:28 AM EDT): Will check levels to determine if medication adjustments are needed Hypercholesterolemia 12/05/2017 06/29/2023 Type 2 diabetes mellitus wit h retinopathy, with long-term current use of insulin Assessment & Plan (12/26/2023 4:35 PM EDT): Up to date w/ ophtho. Encounters Date Type Department Care Team Description 07/15/2025 Refill [facility] [address] [place] [id number] Simran Contreras PA-C Medication Refill 06/29/2025 Refill [facility] [address] [place] [address] Simran Contreras PA-C Medication Refill 04/29/2025 2:30 PM EDT Office Visit [facility] [address] [place] [id number] Simran Contreras PA-C Type 2 diabetes mellitus with peripheral neuropathy (Primary Dx) from Last 3 Months Social History Tobacco Use Types Packs/Day Years Used Date Smoking Tobacco: Never Passive Smoke Exposure: Never Smokeless Tobacco: Never Tobacco Cessation:Counseling Given: Not Answered Alcohol Use Standard Drinks/Week Comments Never 0 [...] Sign Reading Time Taken Comments Blood Pressure 126/82 04/29/2025 2:27 PM EDT Pulse 92 04/29/2025 2:27 PM EDT Temperature 36.4 C (97.5 F) 12/25/2023 3:10 PM EDT Respiratory Rate - - Oxygen Saturation 97% 04/29/2025 2:27 PM EDT Inhaled Oxygen Concentration - - Weight 94.1 kg (207 lb 6.4 oz) 04/29/2025 2:27 P M EDT Height 168.8 cm (5' 6.46 ) 11/19/2024 9:37 AM ES T Body Mass Index 33.02 11/19/2024 9:37 AM EST Plan of Treatment Upcoming Encounters Date Type Department Care Team (Late st Contact Info) Description 07/28/2025 12:30 PM EST Office Visit [facility] [address] [phone] Simran Contreras PA-C [address] [place] [address] 10/27/2025 12:30 PM EST Office Visit [facility] [address] [phone] Simran Contreras PA-C [address] [place] [address] 01/26/2026 2:00 PM EDT Office Visit [facility] [address] [phone] Pinky Miller MD [address] [place] [phone] Health Maintenance Due Date Last Done Comments DEPRESSION SCREENING 1971 HEPATITIS A VACCINES (1 of 2 - Risk 2-dose series) 1978 PNEUMOCOCCAL VACCINES (50+ years) (1 of 2 - PCV) 1978 ZOSTER VACCINES (1 of 2) 1978 MAMMOGRAM 1999 COLOGUARD 2004 COLONOSCOPY 2004 COLORECTAL CANCER SCREENING 2004 FIT TEST 2004 FOBT 2004 SIGMOIDOSCOPY 2004 VIRTUAL COLONOSCOPY 2004 RSV VACCINE (1 - Risk 50-74 years 1-dose series) 2009 Adult Td,Tdap Booster 09/21/2020 09/21/2010 DIABETIC EYE EXAM 01/26/2023 OSTEOPOROSIS SCREENING INITIAL (ONE-TIME) 2024 HEMOGLOBIN A1C 02/16/2025 11/19/2024, 08/0 02/2024, 10/27/2023, Additional history exists INFLUENZA VACCINE (#1) 2025 07/01/2021 COVID-19 VACCINE ( season) 2025 07/02/2021, 12/23/2020, 12/02/2020 BLOOD PRESSURE 10/30/2025 04/29/2025 CREATININE LEVEL 11/19/2025 11/19/2024, 02/2024, 10/27/2023, Additional history exists POTASSIUM LEVEL 11/19/2025 11/19/2024, 08/0 02/2024, 10/27/2023, Additional history exists TSH LEVEL 11/19/2025 11/19/2024, 08/0 02/2024, 10/27/2023, Additional history exists HEPATITIS C SCREENING Completed 12/14/2018 SMOKING STATUS SCREENING (Once After 26 Yrs) Completed 04/29/2025 HIB VACCINES Aged Out No longer eligi ble based on patient's age to complete this topic MENINGOCOCCAL VACCINES (ACWY) Aged Out No longer eligible based on patient's age to complete this topic MENINGOCOCCAL VACCINES (B) Aged Out N o longer eligible based on patient's age to complete this topic Medical Devices Not on file Procedures Procedure Name Priority Date/Time Associated Diagnosis Comments HEMOGLOBIN A1C Routine 11/19/2024 10:27 AM EST Type 2 diabetes mellitus with peripheral neuropathy TSH WITH REFLEX Routine 11/19/2024 10:27 AM EST Postablative hypothyroidism BASIC METABOLIC PANEL Routine 11/19/2024 10:27 AM EST Type 2 diabetes mellitus with peripheral neuropathy from Last 3 Months or Most Recently Relevant to Health Maintenance Results * (ABNORMAL) TSH with reflex (11/19/2024 10:27 AM EST) TSH 4.76(H) 0.27 - 4.20 uIU/mL [facility] Blood 11/19/2024 10:2 7 AM EST 11/19/2024 10:35 AM EST Simran Contreras PA-C LAB BLOOD ORDERABL ES Final Result Performing Organization Address City/[facility]/ZIP Co de Phone Number [address] [address] * (ABNORMAL) Hemoglobin A1c (11/19/2024 10:27 AM EST) HEMOGLOBIN A1C 10.4(H) 4.3 - 5.8 % [facility] Blood 11/19/2024 10:2 7 AM EST 11/19/2024 10:35 AM EST Simran Contreras PA-C LAB BLOOD ORDERABL ES Final Result Performing Organization Address City/[facility]/ZIP Co de Phone Number [address] [address] * (ABNORMAL) Basic metabolic panel (11/19/2024 10:27 AM EST) SODIUM 133 133 - 146 mmol/L [facility] CHLORIDE 92(L) 96 - 108 mmol/L [facility] POTASSIUM 4.5 3.3 - 5.1 mmol/L [facility] CO2 29 21 - 35 mmol/L [facility] BUN 17 6 - 19 mg/dL [facility] CREATININE 1.40 0.5 - 1.5 mg/dL [facility] GLUCOSE 287(H) 70 - 99 mg/dL [facility] CALCIUM 9.5 8.4 - 10.3 mg/dL [facility] EGFR 42(L) >59 mL/min/1.7 3m2 [facility] Comment:Estimated glomerular filtration rate calculated using the CKD-EPI refit equation. ANION GAP 17 10 - 20 mmol/L [facility] Blood 11/19/2024 10:2 7 AM EST 11/19/2024 10:35 AM EST us Simran Contreras PA-C LAB BLOOD ORDERABL ES Final Result [facility] [address], [place] [phone] from Last 3 Months or Most Recently Relevant to Health Maintenance Insurance MEDICARE PART A & B BLUE CROSS MEDEX SUPPLEMENT MEDICARE PART A & B [employer] CROSS MEDEX SUPPLEMENT MEDICARE PART A & B [employer]eb[employer] MEDEX SUPPLEMENT Member Subscriber Plan / Payer (Ef fective 2021-) Name:Elysia Valle Relation to Subscriber:Self Name:Elysia Valle Payer ID:[id number] (NAIC) Type:Indemnity Address: [place] [id number] MEDICARE PART A & B [employer]eb[employer] MEDEX SUPPLEMENT MEDICARE PART A & B [employer]ebo MEDEX SUPPLEMENT MEDICARE PART A & B [employer]eb[employer] MEDEX SUPPLEMENT Care Teams Soa Integration Developer Relationship Specialty Start Date End Date Patti Bell PA [address] [place] [address] [place] [address] PCP - General 01/11/21 Additional Source Comments The information contained in this document represents components of the legal health record. It is not the complete legal health record.[facility]
--- OUTSIDE RECORDS SUMMARY | 2025-07-18 15:44 | XMS_ITS | Encounter Summary ---
Author Organization [facility], Address [address] [place] [address] Phone Care Team Providers Care Manager Express Name Role Phone Patti Bell PA-C Primary Care Provider [phone] Encounter Details Date Type Department Care Team (Late st Contact Info) Description 10/04/2022 Documentation Only [facility], - [address] [phone] Patti Bell PA-C [address] [place] [phone] Social History Tobacco Use Types Packs/Day Years [...] on filedocumented in this encounter Care Teams Manager Express Relationship Specialty Start Date End Date Patti Bell PA-C [address] [place] [phone] PCP - General Physician Track Announcer 03/12/20 documented as of this encounter
--- OUTSIDE RECORDS SUMMARY | 2025-07-18 15:44 | XMS_ITS | Encounter Summary ---
Author Organization [facility], Address [address] [place] [address] Phone Care Team Providers Care Licensed Psychologist Director Name Role Phone Patti Bell PA-C Primary Care Provider [phone] Encounter Details Date Type Department Care Team (Late st Contact Info) Description 03/26/2020 Orders Only [facility] [address] [facility] [address] [place] [id number] dAa Marie MD Chronic kidney disease, stage 3 [...] Diagnosis Comments US RENAL COMPLETE Routine 04/22/2020 3:2 9 PM EDT Chronic kidney disease, stage 3 (moderate) (HCC) documented in this encounter Results * Ultrasound renal complete (04/22/2020 3:29 PM EDT) Anatomical Region Laterality Modality Body Ultrasound us Ada Marie MD [facility] US PROCEDURES Final Result documented in this encounter Visit Diagnoses Diagnosis Chronic kidney disease, stage 3 (moderate) documented in this encounter Care Teams Licensed Psychologist Director Relationship Specialty Start Date End Date Patti Bell PA-C [address] [facility] [place] [address] PCP - General Physician Drop Machine Operator 03/12/20 documented as of this encounter
== END 2025-07-18 13:41 | disposition home or self-care (01) ==
LOC: HO.HMGCX 13:40
PROVIDERS: PCP Internal Medicine; Visit Provider Physician Assistant
DX: M25.572 Pain in left ankle and joints of left foot (principal)
CPT/HCPCS: 73610

== ENCOUNTER → 2025-07-18 13:51 | Outpatient (BNV) | payer MEDICARE, SELFPAY | PROVIDERS: PCP Internal Medicine; Visit Provider Radiology Diagnostic Ultrasound | DX: M77.32 Calcaneal spur, left foot (principal) | CPT/HCPCS: 73610 ==